=== PATIENT | male | born 1955 | race Caucasian/White ===

== ENCOUNTER 2020-07-14 13:45 | Outpatient (REF) | payer MEDICARE, SELFPAY ==
[2020-07-14 15:30] LABS: Anion Gap 13 (12-20); Blood Urea Nitrogen 59 mg/dL (9-16); Calcium 9.1 mg/dL (8.4-10.2); Carbon Dioxide 24 mmol/L (22-29); Chloride 112 mmol/L (96-108); Estimated Glomerular Filt Rate 33; Phosphorus 3.8 mg/dL (2.7-4.5); Potassium 5.3 mmol/L (3.3-5.1); Sodium 144 mmol/L (135-145)
[2020-07-14 17:45] LABS: Renal w Reflex Lab Use Only Order verified
== END 2020-07-14 13:46 | disposition home or self-care (01) ==
LOC: HO.LAB 13:45
PROVIDERS: PCP Family Medicine; Visit Provider Internal Medicine Nephrology
DX: I12.9 Hypertensive chronic kidney disease with stage 1 through stage 4 chronic kidney disease, or unspecified chronic kidney disease (principal); N18.30 Chronic kidney disease, stage 3 unspecified; E87.5 Hyperkalemia; N28.9 Disorder of kidney and ureter, unspecified
CPT/HCPCS: 36415; 80051; 82310; 82565; 84100; 84520

== ENCOUNTER 2021-01-11 13:00 | Outpatient (REF) | payer MEDICARE, SELFPAY ==
[2021-01-11 14:30] LABS: Alanine Aminotransferase 23 U/L (0-40); Albumin Level 4.4 g/dL (3.5-5.0); Alkaline Phosphatase 71 U/L (39-117); Anion Gap 15 (12-20); Aspartate Amino Transferase 18 U/L (5-37); Bilirubin Total 0.6 mg/dL (0.0-1.0); Blood Urea Nitrogen 65 mg/dL (9-16); Calcium 9.4 mg/dL (8.4-10.2); Carbon Dioxide 24 mmol/L (22-29); Chloride 110 mmol/L (96-108); Estimated Glomerular Filt Rate 30; Glucose Fasting 137 mg/dL (60-99); Potassium 5.9 mmol/L (3.3-5.1); Sodium 143 mmol/L (135-145); Total Protein 7.5 g/dL (6.5-8.0)
[2021-01-11 15:09] LABS: Anion Gap 17 (12-20); Blood Urea Nitrogen 65 mg/dL (9-16); Calcium 9.2 mg/dL (8.4-10.2); Carbon Dioxide 21 mmol/L (22-29); Chloride 111 mmol/L (96-108); Estimated Glomerular Filt Rate 31; Phosphorus 3.7 mg/dL (2.7-4.5); Potassium 5.9 mmol/L (3.3-5.1); Sodium 143 mmol/L (135-145)
[2021-01-11 15:27] LABS: Renal w Reflex Lab Use Only Order verified
[2021-01-11 15:38] LABS: Creatinine Urine 68.02 mg/dL; Microalbum/Creatinine Ratio Ur 2850.6 ug/mg cr
[2021-01-11 16:09] LABS: Glucose Random 136 mg/dL (60-115)
== END 2021-01-11 13:01 | disposition home or self-care (01) ==
LOC: HO.LAB 13:00
PROVIDERS: Absent Provider Internal Medicine Nephrology; PCP Family Medicine; Visit Provider Family Medicine
DX: Z00.00 Encounter for general adult medical examination without abnormal findings (principal); E11.22 Type 2 diabetes mellitus with diabetic chronic kidney disease; I12.9 Hypertensive chronic kidney disease with stage 1 through stage 4 chronic kidney disease, or unspecified chronic kidney disease; N18.30 Chronic kidney disease, stage 3 unspecified; E87.5 Hyperkalemia; N28.9 Disorder of kidney and ureter, unspecified
CPT/HCPCS: 36415; 80051; 80053; 82043; 82310; 82550; 82565; 82947; 84100; 84520

== ENCOUNTER 2021-03-06 11:16 | Outpatient (REF) | payer MEDICARE, SELFPAY ==
[2021-03-06 12:58] LABS: Alanine Aminotransferase 28 U/L (0-40); Albumin Level 4.4 g/dL (3.5-5.0); Alkaline Phosphatase 58 U/L (39-117); Anion Gap 17 (12-20); Aspartate Amino Transferase 19 U/L (5-37); Bilirubin Total 0.6 mg/dL (0.0-1.0); Blood Urea Nitrogen 90 mg/dL (9-16); Calcium 9.5 mg/dL (8.4-10.2); Carbon Dioxide 26 mmol/L (22-29); Chloride 105 mmol/L (96-108); Estimated Glomerular Filt Rate 27; Glucose Random 182 mg/dL (60-115); Potassium 4.4 mmol/L (3.3-5.1); Sodium 144 mmol/L (135-145); Total Protein 7.5 g/dL (6.5-8.0)
== END 2021-03-06 11:17 | disposition home or self-care (01) ==
LOC: HO.WFDLDS 11:16
PROVIDERS: Visit Provider Family Medicine
DX: E11.9 Type 2 diabetes mellitus without complications (principal); E87.5 Hyperkalemia; N18.9 Chronic kidney disease, unspecified
CPT/HCPCS: 36415; 80053

== ENCOUNTER 2021-04-28 21:31 | Inpatient (IN) | payer MEDICARE, SELFPAY ==
--- NOTE | ~2021-04-28 | XR_ITS ---
EXAMINATION: XR CHEST CLINICAL INFORMATION: Endotracheal tube placement COMPARISON: Chest x-ray on 05/26/2021 TECHNIQUE: Frontal view of the chest was obtained. FINDINGS: The endotracheal tube is 6.2 cm above the sowmya. Enteric tube and left internal jugular vein catheter are unchanged. No significant change in the bilateral diffuse hazy opacities. No pleural effusions. No pneumothorax. XR/XR chest 1V IMPRESSION: Endotracheal tube, enteric tube, and left internal jugular vein catheter are unchanged.
--- NOTE | ~2021-04-28 | XR_ITS ---
EXAMINATION: XR CHEST CLINICAL INFORMATION: Hypoxia. Intubated. COMPARISON: 05/22/2021 TECHNIQUE: Frontal view of the chest was obtained. FINDINGS: Endotracheal tube terminates 6.0 cm above the sowmya. Enteric tube terminates within stomach. Low lung volumes. Diffuse linear, reticular and hazy airspace opacities are without appreciable change from prior. Stable cardiac mediastinal silhouette. XR/XR chest 1V IMPRESSION: Stable diffuse bilateral interstitial and airspace disease.
--- NOTE | ~2021-04-28 | CT_ITS ---
EXAMINATION: CT CHEST WITHOUT CONTRAST CLINICAL INFORMATION: Hypoxia. COMPARISON: None TECHNIQUE: Multidetector volumetric CT imaging of the chest was done. Axial MIP volume rendering provided. Sagittal and coronal reformatted images were obtained. This CT examination was performed using dose optimization techniques as appropriate, variously including the following: *Automated exposure control *Adjustment of mA and/or kV according to patient size (this includes techniques or standardized protocols for targeted exams where dose is matched to indication/reason for exam; i.e. extremities or head) *Use of iterative reconstruction technique DLP: 435 mGy-cm FINDINGS: LUNGS: Extensive multifocal airspace opacities. Evaluation of pulmonary nodules is suboptimal due to overlying airspace disease. Azygos fissure. The central airways are patent. MEDIASTINUM: Asymmetric elevation of the right hemidiaphragm. Cardiomegaly without pericardial effusion. Mediastinal and hilar lymphadenopathy for instance a prevascular lymph node measuring up to 1.3 cm (3:25). Extensive coronary calcifications. Atherosclerotic disease of the thoracic aorta which is of normal diameter. Normal appearance of the thyroid gland. PLEURA: No pleural effusion or pneumothorax. AXILLA: No lymphadenopathy. UPPER ABDOMEN: There is a 0.7 cm calculus in the upper pole of the right kidney. OSSEOUS STRUCTURES: No acute or suspicious osseous abnormalities. Thoracic spondylosis. CT/CT chest wo con IMPRESSION: Extensive multifocal airspace opacities most consistent with a multifocal pneumonia in the appropriate clinical setting. Mediastinal and hilar lymphadenopathy is likely reactive. Extensive coronary calcifications. 0.7 cm calculus in the upper pole of the right kidney.
--- NOTE | ~2021-04-28 | XR_ITS ---
EXAMINATION: XR CHEST CLINICAL INFORMATION: Status post and the tracheal tube exchange COMPARISON: May 15, 2021 TECHNIQUE: AP portable view of the chest was obtained. FINDINGS: Endotracheal tube tip is seen approximately 5 cm above the sowmya. Enteric tube seen traversing to the stomach. There appears be a temporary pacemaker placed from a right internal jugular vein approach. There is again noted to be central stable appearance of diffuse interstitial and airspace disease bilaterally with the appearance of pulmonary edema of cardiogenic or noncardiogenic etiology or diffuse interstitial lung disease such as related to viral pneumonitis. Heart normal size. No pneumothorax or significant pleural effusion identified. Azygos lobe present. XR/XR chest 1V IMPRESSION: No significant change in diffuse bilateral interstitial and airspace disease. Endotracheal tube tip approximately 5 cm above the sowmya.
--- NOTE | ~2021-04-28 | XR_ITS ---
EXAMINATION: XR CHEST CLINICAL INFORMATION: Intubated, hypoxic COMPARISON: 05/17/2021 TECHNIQUE: Frontal view of the chest was obtained. FINDINGS: Endotracheal tube with tip 5 to 6 cm above the sowmya. Right internal jugular approach transvenous pacer has been removed. Enteric tube descends the esophagus with tip in the body of the stomach. Lung volumes remain low. Similar appearance of diffuse interstitial and airspace opacities. No pleural effusion or pneumothorax. XR/XR chest 1V IMPRESSION: No significant change in low lung volumes with diffuse interstitial and airspace opacities. Right internal jugular approach transvenous pacer has been removed. Additional tubes and lines remain, in satisfactory position.
--- NOTE | ~2021-04-28 | XR_ITS ---
EXAMINATION: XR ABDOMEN KUB CLINICAL INDICATION: Distention. COMPARISON: 02/15/2016 TECHNIQUE: AP view of the abdomen. FINDINGS: Normal bowel gas pattern. No dilated loops of bowel. Gas and stool throughout the colon. No abnormal dilatation. Degenerative changes noted in the spine. Catheter overlies the pelvis. XR/XR abdomen 1V IMPRESSION: Normal bowel gas pattern. No abnormal bowel dilatation.
--- NOTE | ~2021-04-28 | US_ITS ---
EXAMINATION: US VENOUS WITH DOPPLER UPPER EXTREMITY, LEFT CLINICAL INFORMATION: Swollen left upper extremity with left Ig central line placement. COMPARISON: None TECHNIQUE: Ultrasound of the upper extremity is performed using compression sonography and color and pulse Doppler flow with assessment of augmentation of flow. There is also imaging and Doppler assessment of the jugular and subclavian veins. Spectral analysis with color-flow imaging is performed. FINDINGS: Respiratory variation, normal compression, and augmented flow are noted throughout the upper extremity including the axillary, brachial, cephalic and basilic veins. There is normal flow in subclavian vein. The left internal jugular vein was not visualized. There is no visible deep or superficial thrombophlebitis. If the patient's symptoms progress, a followup ultrasound in 5 -7 days might be of value to exclude proximal propagation from a nonvisualized distal arm vein. US/US venous duplex UE LT IMPRESSION: No DVT demonstrated in left upper extremity. The left internal jugular vein was not visualized. Results were discussed with Dr. Flores in the ICU at 10:00 AM.
--- NOTE | ~2021-04-28 | XR_ITS ---
EXAMINATION: XR CHEST CLINICAL INFORMATION: Diffuse bilateral interstitial airspace disease. COMPARISON: Chest 05/24/2021 TECHNIQUE: Frontal view of the chest was obtained. FINDINGS: The lungs are hypoexpanded with diffuse bilateral interstitial prominence, stable. No consolidation or pleural effusion seen on this exam however limited. There is a new left central venous catheter with its tip in the mid SVC. The right jugular sheath has been removed. Tip of the endotracheal tube is 7.5 cm above the sowmya. The enteric tube tip is below diaphragm in the stomach. It may have slightly retracted since the last study. However the patient is slightly rotated to the right. Heart size and the great vessels are normal caliber. No gross bony abnormality seen. XR/XR chest 1V IMPRESSION: Stable diffuse bilateral interstitial and airspace disease. Numerous left central venous catheter tip in mid SVC. The right jugular venous sheath has been removed. No change in endotracheal tube. Advanced enteric tube at least by 5 to 10 cm.
--- NOTE | ~2021-04-28 | XR_ITS ---
EXAMINATION: XR CHEST CLINICAL INFORMATION: Follow-up Covid infection COMPARISON: Previous chest x-ray 05/31/2021 TECHNIQUE: Frontal view of the chest was obtained. FINDINGS: The lung volumes are low. The heart does not appear enlarged. There is a new tracheostomy tube with tip 4.4 cm above the sowmya. There is a left jugular line with tip projecting over the SVC. There are bilateral infiltrates. This may be slightly improved in the right upper lobe compared to May 2021 exam. There is question of new denser airspace disease or atelectasis of the left upper lobe versus changes related to patient positioning and tracheostomy apparatus. There is no pleural effusion or pneumothorax. There are degenerative changes of the spine. XR/XR chest 1V IMPRESSION: Satisfactory position of tracheostomy tube and left jugular line. Low lung volumes and bilateral infiltrates, question slightly improved from May 2021 exam. Question new left upper lobe atelectasis or consolidation versus changes due to positioning and tracheostomy tube apparatus.
--- NOTE | ~2021-04-28 | FL_ITS ---
EXAMINATION: XR FLUOROSCOPY CLINICAL INFORMATION: Temporary pacemaker placement COMPARISON: None TECHNIQUE: Fluoroscopic imaging guidance was utilized for a procedure. 2 fluoroscopic matrix images are available for review. FINDINGS: 2 fluoroscopic matrix images from the procedure are available for review and demonstrate a pacemaker lead projecting over the expected region of the heart. FLUOROSCOPY TIME: 1.7 minutes DOSE AREA PRODUCT: 7.01 Gy-cm2 (rodrigues-centimeter squared) FL/FL fluoroscopy <1hr IMPRESSION: Fluoroscopic imaging guidance for procedure. Please for to the procedure report for details.
--- NOTE | ~2021-04-28 | XR_ITS ---
EXAMINATION: CR CHEST CLINICAL INFORMATION: Intubated with temporary pacer. COMPARISON: CT scan of the chest dated 04/29/2021. TECHNIQUE: AP upright portable view of the chest was obtained. FINDINGS: EKG leads overlie the chest. Right jugular venous pacer line is seen in place with tip in the right ventricle. Enteric tube courses into the abdomen with tip projected in the left upper quadrant, presumably within the gastric fundus. Endotracheal tube tip is 6 cm above the sowmya. The cardiomediastinal silhouette is within normal limits in size. Low lung volumes are seen with extensive bilateral fluffy airspace opacities, unchanged from the CT scan. No significant effusion or pneumothorax is seen. Convex right thoracolumbar scoliosis and mild vertebral spondylosis is noted. XR/XR chest 1V IMPRESSION: 1. Pacer lead and tubes in place as discussed above. 2. No significant change in diffuse bilateral airspace opacities and hypoexpansion of the lungs.
--- NOTE | ~2021-04-28 | XR_ITS ---
EXAMINATION: XR CHEST CLINICAL INFORMATION: Febrile COMPARISON: 05/13/2021 TECHNIQUE: Frontal view of the chest was obtained. FINDINGS: Endotracheal tube terminates 4.0 cm above the sowmya. Enteric tube terminates within the gastric body. Low lung volumes. Diffuse bilateral granular hazy airspace opacity throughout both lungs, with slightly improved aeration on the right. No large pleural effusion. No pneumothorax. XR/XR chest 1V IMPRESSION: Slightly improved aeration within right lung.
[2021-04-28 21:37] VITALS: BP 126/75; BP 144/86; PULSE 85; RESP 18; O2SAT 95; BMI 30.5
--- NOTE | 2021-04-28 21:49 | ECG_ITS ---
Test Reason : SOB Blood Pressure : / mmHG Vent. Rate : 082 BPM Atrial Rate : 000 BPM P-R Int : 000 ms QRS Dur : 086 ms QT Int : 364 ms P-R-T Axes : 000 -21 029 degrees QTc Int : 425 ms Normal sinus rhythm with 1st degree A-V block Left axis deviation Nonspecific ST abnormality Abnormal ECG When compared with ECG of 28-FEB-2018 22:44, Heart rate has decreased Nonspecific ST abnormality is new Referred By: Nikki Young Electronically Signed By:SHEILA MATOS MD
--- NOTE | 2021-04-28 21:53 | ED_ITS ---
HPI - General Adult General Chief complaint: Dyspnea Stated complaint: covid + w/ symptoms (low O2 sat) Time Seen by Provider: 04/28/21 21:32 Source: patient and EMS Mode of arrival: EMS Limitations: no limitations History of Present Illness HPI narrative: Patient comes to emergency room complaining of low oxygen sa turation. Patient states that he was diagnosed with COVID-19 9 days ago. Patient states that he had flu-like symptoms which triggered him to get tested. Patient states that he has been feeling fairly well, today he started feeling short of breath. His checked his oxygen saturation, was in the low 60s, EMS was called, running to be hypoxic in the low 70s. Patient was placed in a non-rebreather at 15 L, oxygen saturation improved to 92%. Patient denies chest pain, patient speaking in full sentences, states that overall he feels well than the shortness of breath. Related Data Home Medications Medication Instructions Recorded Confirmed isosorbide mononitrate 60 mg 60 mg PO DAILY 03/06/21 04/28/21 tablet,extended release 24 hr sodium polystyrene sulfonate 30 g PO 2XW 03/06/21 04/28/21 furosemide 40 mg tablet 40 mg PO Q2D 04/28/21 04/28/21 furosemide 40 mg tablet 80 mg PO Q2D 04/28/21 04/28/21 insulin glargine 100 unit/mL (3 18 unit SUBCUT QPM 04/28/21 04/28/21 mL) subcutaneous pen (Basaglar KwikPen U-100 Insulin) Previous Rx's Medication Instructions Recorded aspirin 81 mg chewable tablet 1 tab PO DAILY #30 cap 06/23/20 blood sugar diagnostic (OneTouch #100 ea 06/25/20 Ultra Blue Test Strip) atorvastatin 20 mg tablet 20 mg PO DAILY #30 cap 06/28/20 metformin 500 mg tablet 250 mg PO DAILY 90 Days #45 tab 10/21/20 atenolol 25 mg tablet 25 mg PO DAILY 90 Days #90 tab 10/25/20 glipizide 5 mg tablet 2.5 mg PO DAILY #45 tab 11/16/20 hydralazine 10 mg tablet 40 mg PO TID #360 cap 02/08/21 Allergies Allergy/AdvReac Type Severity Reaction Status Date / Time No Known Allergies Allergy Verified 03/06/21 10:38 [No Known Allergies*] Review of Systems Review of Systems: Constitutional : No Weight loss, No Fever, No Chills, No Night Sweats, No Fatigue, No Malaise ENT/Mouth : No Hearing loss, No Ear Pain, No Nasal Congestion, No Sinus Pain, No Hoarseness, No sore throat, No Rhinorrhea, No Swallowing Difficulty Eyes: No Eye Pain, No Swelling, No Redness, No Foreign Body, No Discharge, No Vision Changes Cardiovascular : No Chest Pain, no palpitations, complaining of shortness of breath Respiratory : Complaining of dry Cough, No Sputum, No Wheezing, No Smoke Exposure, complaining of dyspnea Gastrointestinal : No Nausea, No Vomiting, No Diarrhea, No Constipation, No abdominal Pain, No Hematochezia, No Melena Genitourinary : no irregular bleeding, No Dysuria, No Urinary Frequency, No Hematuria, No Urinary Incontinence, No Urgency, No Flank Pain, No Urinary Flow Changes, No Hesitancy Musculoskeletal : No joint pain, No Myalgias, No Joint Swelling Skin : No Skin Lesions, No rash Neuro : No Weakness, No Numbness, No Paresthesias, No Loss of Consciousness, No Dizziness, No Headache Psych : No Anxiety/Panic, No Depression, No SI/HI/AH/VH, No Social Issues, Heme/Lymph: No Bruising, No Bleeding,No Lymphadenopathy Endocrine : No Polyuria, No Polydipsia, No Temperature Intolerance FORMERLY [facility], [facility]–1983 Social History Social History Housing: House Patient Tobacco Use Status: Never used Tobacco e-Cigarette/Vaping Use: Never Used Advance Directives: No Advance Directives Information Provided: No service: Yes Current occupational status: employed Current occupational exposures/hazards: No Physical Exam Vital Signs: Vital Signs: Last Vital Signs Temp 99.4 F 04/29/21 01:00 Pulse 72 04/29/21 01:00 Resp 18 04/29/21 01:00 BP 108/69 04/28/21 23:31 Pulse Ox 96 04/29/21 01:00 Oxygen Flow Rate 15 04/28/21 21:37 Body Mass Index 30.5 Course Course Course Narrative: Patient has extensive multifocal airspace opacities most consistent with a focal pneumonia/COVID-19. Patient was given dexamethasone. I discussed the patient with the hospitalist, patient will be empirically treated with antibiotic, IV azithromycin and ceftriaxone. Due to patient's history of COVID, patient will not be receiving 30 mL per kg. Patient's blood pressure 126/75, lactic acid 1.5. Patient is on high-flow saturating at 99%. Initially when patient arrived, we attempted weaning patient off the non-rebreather, patient's oxygen saturation dropped to the low 80s within a few seconds. Patient's creatinine and BUN elevated, patient does have history of chronic kidney disease. At this time, we will not do a CTA with contrast due to the renal insufficiency. Medical Decision Making Lab Data Result diagrams: 04/28/21 22:17 04/28/21 22:17 Labs: Lab Results 04/28/21 04/28/21 04/28/21 Range/Units 22:17 22:17 22:17 WBC 8.0 (4.8-10.8) X10*3/uL RBC 5.04 (4.60-5.80) X10*6/uL Hgb 14.6 (14.0-18.0) g/dl Hct 44.6 (42.0-52.0) % MCV 88.5 (80.0-98.0) fL MCH 29.0 (27.0-33.0) pg MCHC 32.7 (31.0-36.0) g/dl RDW 13.2 (11.0-16.0) % Plt Count 186 (160-400) X10*3/uL MPV 11.1 (9.4-12.4) fL Immature Gran % (Auto) 0.9 H (0.0-0.4) % Neut % (Auto) 85.1 H (45-73) % Lymph % (Auto) 7.4 L (20-40) % Burnett % (Auto) 6.5 (2-11) % Eos % (Auto) 0.0 (0-4) % Baso % (Auto) 0.1 (0-2) % Lymph # (Auto) 0.6 L (1.2-4.9) X10*3/uL Burnett # (Auto) 0.5 (0.1-1.2) X10*3/uL Eos # (Auto) 0.0 (0.0-0.4) X10*3/uL Baso # (Auto) 0.0 (0.0-0.2) X10*3/uL Abs Immat Gran (auto) 0.07 H (0.00-0.03) X10*3/uL Absolute Neuts (auto) 6.8 (2.0-8.3) x10*3/uL Absolute Nucleated RBC 0.000 (0.0-0.012) X10*3/uL Nucleated RBC % (auto) 0.0 (0.0-0.2) /100WBC D-Dimer High Sensitivty NG/ML Sodium 134 L (135-145) mmol/L Potassium 5.2 H (3.3-5.1) mmol/L Chloride 105 (96-108) mmol/L Carbon Dioxide 18 L (22-29) mmol/L Anion Gap 16 (12-20) BUN 104 H* (9-16) mg/dL Creatinine 3.29 H (0.5-1.4) mg/dL Estim Creat Clear Calc 27.2 Estimated GFR 19 Random Glucose 180 H (60-115) mg/dL Lactic Acid (0.5-2.0) mmol/L Calcium 7.7 L D (8.4-10.2) mg/dL Total Bilirubin 0.7 (0.0-1.0) mg/dL Direct Bilirubin 0.4 (0.0-0.5) mg/dL AST 61 H (5-37) U/L ALT 35 (0-40) U/L Alkaline Phosphatase 55 (39-117) U/L Troponin I High Sens 78.6 H* (<3.5-35.0) ng/L B-Natriuretic Peptide 1098 H (<100) pg/mL Total Protein 5.9 L D (6.5-8.0) g/dL Albumin 3.1 L D (3.5-5.0) g/dL COVID-19 (MARISA) (Negative) COVID-19 Clin Com 04/28/21 04/28/21 04/28/21 Range/Units 22:17 22:17 22:17 WBC (4.8-10.8) X10*3/uL RBC (4.60-5.80) X10*6/uL Hgb (14.0-18.0) g/dl Hct (42.0-52.0) % MCV (80.0-98.0) fL MCH (27.0-33.0) pg MCHC (31.0-36.0) g/dl RDW (11.0-16.0) % Plt Count (160-400) X10*3/uL MPV (9.4-12.4) fL Immature Gran % (Auto) (0.0-0.4) % Neut % (Auto) (45-73) % Lymph % (Auto) (20-40) % Burnett % (Auto) (2-11) % Eos % (Auto) (0-4) % Baso % (Auto) (0-2) % Lymph # (Auto) (1.2-4.9) X10*3/uL Burnett # (Auto) (0.1-1.2) X10*3/uL Eos # (Auto) (0.0-0.4) X10*3/uL Baso # (Auto) (0.0-0.2) X10*3/uL Abs Immat Gran (auto) (0.00-0.03) X10*3/uL Absolute Neuts (auto) (2.0-8.3) x10*3/uL Absolute Nucleated RBC (0.0-0.012) X10*3/uL Nucleated RBC % (auto) (0.0-0.2) /100WBC D-Dimer High Sensitivty 964 NG/ML Sodium (135-145) mmol/L Potassium (3.3-5.1) mmol/L Chloride (96-108) mmol/L Carbon Dioxide (22-29) mmol/L Anion Gap (12-20) BUN (9-16) mg/dL Creatinine (0.5-1.4) mg/dL Estim Creat Clear Calc Estimated GFR Random Glucose (60-115) mg/dL Lactic Acid 1.5 (0.5-2.0) mmol/L Calcium (8.4-10.2) mg/dL Total Bilirubin (0.0-1.0) mg/dL Direct Bilirubin (0.0-0.5) mg/dL AST (5-37) U/L ALT (0-40) U/L Alkaline Phosphatase (39-117) U/L Troponin I High Sens (<3.5-35.0) ng/L B-Natriuretic Peptide (<100) pg/mL Total Protein (6.5-8.0) g/dL Albumin (3.5-5.0) g/dL COVID-19 (MARISA) Positive A (Negative) COVID-19 Clin Com See Note Imaging Data CT scan - chest: Radiologist's impression: FINDINGS: LUNGS: Extensive multifocal airspace opacities. Evaluation of pulmonary nodules is suboptimal due to overlying airspace disease. Azygos fissure. The central airways are patent.? MEDIASTINUM: Asymmetric elevation of the right hemidiaphragm. Cardiomegaly without pericardial effusion. Mediastinal and hilar lymphadenopathy for instance a prevascular lymph node measuring up to 1.3 cm (3:25). Extensive coronary calcifications. Atherosclerotic disease of the thoracic aorta which is of normal diameter. Normal appearance of the thyroid gland.? PLEURA: No pleural effusion or pneumothorax.? AXILLA: No lymphadenopathy.? UPPER ABDOMEN: There is a 0.7 cm calculus in the upper pole of the right kidney.? OSSEOUS STRUCTURES: No acute or suspicious osseous abnormalities. Thoracic spondylosis.? CT/CT chest wo con IMPRESSION: Extensive multifocal airspace opacities most consistent with a multifocal pneumonia in the appropriate clinical setting. Mediastinal and hilar lymphadenopathy is likely reactive. ? Extensive coronary calcifications. ? 0.7 cm calculus in the upper pole of the right kidney.? ECG Data Attestation: I personally reviewed and interpreted this ECG as follows: (Heart rate 82, no ST segment depression elevation, no T-wave inversion, QTC 435, tolerated junctional rhythm) Critical Care Time Critical Care Time Critical Care Time: Yes Total Critical Care Time: 50 Attestation: 50 minutes were spent in direct patient care and stabilization. Discharge Plan Discharge Clinical Impression: Acute hypoxemic respiratory failure due to COVID-19 Patient Disposition: Admitted As Inpatient Prescriptions: No Action aspirin 81 mg tablet,chewable 1 tab PO DAILY Qty: 30 RF: 11 (DME) Telogisuch Ultra Blue Test Strip Strip See Rx Instructions .ROUTE .MEDSUPPLY Qty: 100 RF: 3 atorvastatin 20 mg tablet 20 mg PO DAILY Qty: 30 RF: 11 metformin 500 mg tablet 250 mg PO DAILY 90 Days Qty: 45 RF: 3 atenolol 25 mg tablet 25 mg PO DAILY 90 Days Qty: 90 RF: 3 glipizide 5 mg tablet 2.5 mg PO DAILY Qty: 45 RF: 0 hydralazine 10 mg tablet 40 mg PO TID Qty: 360 RF: 3 furosemide 40 mg tablet 80 mg PO Q2D RF: 0 furosemide 40 mg tablet 40 mg PO Q2D RF: 0 Basaglar HariPen U-100 Insulin 100 unit/mL (3 mL) insulin pen 18 unit subcut QPM RF: 0
[2021-04-28] MEDS: dexAMETHasone sod phosphate 4 MG/ML VIAL 6 MG IVPUSH (22:04)
[2021-04-28] MEDS: 0.9 % Sodium Chloride 1,000 ML 999 ML IVCONT (22:04)
[2021-04-28 22:08] VITALS: PULSE 85; TEMP 39.2
--- NOTE | 2021-04-28 22:14 | PHA.MEDREC ---
Pharmacy Consult ? Medication Reconciliation Pharmacy has completed the medication reconciliation. Per Nakia (patients ), the SPS is not taken on fixed days
[2021-04-28 22:15] VITALS: PULSE 85; O2SAT 94
[2021-04-28 22:23] LABS: MANUAL DIFF FLAG NO
[2021-04-28 22:26] LABS: Basophils Percent Auto 0.1 % (0-2); Hematocrit 44.6 % (42.0-52.0); Hemoglobin 14.6 g/dl (14.0-18.0); Imm Gran Abs Auto 0.07 X10*3/uL (0.00-0.03); Imm Gran Pct Auto 0.9 % (0.0-0.4); Lymphocytes Absolute Auto 0.6 X10*3/uL (1.2-4.9); Lymphocytes Percent Auto 7.4 % (20-40); Mean Corpuscular HGB Conc 32.7 g/dl (31.0-36.0); Mean Corpuscular Volume 88.5 fL (80.0-98.0); Mean Platelet Volume 11.1 fL (9.4-12.4); Monocytes Absolute Auto 0.5 X10*3/uL (0.1-1.2); Monocytes Percent Auto 6.5 % (2-11); Neutrophils Absolute Auto 6.8 x10*3/uL (2.0-8.3); Neutrophils Percent Auto 85.1 % (45-73); Platelet Count 186 X10*3/uL (160-400); Red Blood Count 5.04 X10*6/uL (4.60-5.80); Red Cell Distribution Width 13.2 % (11.0-16.0)
[2021-04-28 22:33] LABS: COVID-19 Test Positive (Negative); D Dimer High Sensitivity 964 NG/ML
[2021-04-28 22:34] LABS: Lactic Acid 1.5 mmol/L (0.5-2.0)
[2021-04-28 22:49] LABS: B Type Natriuretic Peptide 1098 pg/mL (<100); Troponin-I High Sensitivity 78.6 ng/L (<3.5-35.0)
[2021-04-28 22:50] LABS: Alanine Aminotransferase 35 U/L (0-40); Albumin Level 3.1 g/dL (3.5-5.0); Alkaline Phosphatase 55 U/L (39-117); Anion Gap 16 (12-20); Aspartate Amino Transferase 61 U/L (5-37); Bilirubin Direct 0.4 mg/dL (0.0-0.5); Bilirubin Total 0.7 mg/dL (0.0-1.0); Blood Urea Nitrogen 104 mg/dL (9-16); Calcium 7.7 mg/dL (8.4-10.2); Carbon Dioxide 18 mmol/L (22-29); Chloride 105 mmol/L (96-108); Creatinine Clr Calc Pharmacy 27.2; Estimated Glomerular Filt Rate 19; Glucose Random 180 mg/dL (60-115); Potassium 5.2 mmol/L (3.3-5.1); Sodium 134 mmol/L (135-145); Total Protein 5.9 g/dL (6.5-8.0)
--- NOTE | 2021-04-28 22:52 | PM.IMHP ---
History of Present Illness Date of Service: 04/28/21 Chief Complaint: SOB 66-year-old male with past medical history of hypertension, CHF, diabetes, who presents to the hospital with complaints of shortness of breath. Patient reports that he was diagnosed with COVID-19 about 9 days ago, he regularly checks his oxygen home, today his checked and was 60. On arrival of EMS patient's O2 was 70% on room air. Patient was brought into the hospital. He reports no chest pain, no abdominal pain nausea or vomiting, no diarrhea constipation no urinary symptoms and no lower extremity edema. No weakness numbness or headache. On arrival to the ED patient found to have a temp of 102.6?, heart rate of 85, respiratory rate of 18, blood pressure 108/69, satting 97% on high-flow nasal cannula Labs are significant for WBC count of 8.0, sodium of 134, potassium 5.2, creatinine of 3.29 with a baseline around 2.4, troponin of 78, BNP of 1098, COVID-19 positive, Chest CT showed extensive multifocal airspace opacities most consistent with multifocal pneumonia in the appropriate clinical setting. Patient placed on high-flow and will be admitted for further management Review of Systems Review of Systems: Yes all other systems are reviewed and are negative [facility] Medical History (Updated 04/29/21 @ 06:45 by Kina Arredondo MD) CHF (congestive heart failure) Chronic renal failure Diabetes Hypertension Type 2 diabetes mellitus Pertinent family history: No history of cardiovascular disease in immediate family Surgical History (Updated 04/29/21 @ 06:42 by Kina Arredondo MD) No pertinent past surgical history Social History Housing: House Alcohol intake: unknown Patient Tobacco Use Status: Never used Tobacco e-Cigarette/Vaping Use: Never Used Use of substances other than those prescribed or required for medical reasons: Unknown Advance Directives: No Advance Directives Information Provided: No service: Yes Current occupational status: employed Current occupational exposures/hazards: No Meds Allergies Allergy/AdvReac Type Severity Reaction Status Date / Time No Known Allergies Allergy Verified 03/06/21 10:38 [No Known Allergies*] Active Medications: Current Medications Pharmacy Consult (Consult Rx Perform Med Rec) 1 each MISCELLANE ONCE PRN PRN Reason: Consult order Home Medications Medication Instructions Recorded Confirmed Last Taken Type isosorbide mononitrate 60 mg 60 mg PO DAILY 03/06/21 04/28/21 04/27/21 History tablet,extended release 24 hr sodium polystyrene sulfonate 30 g PO 2XW 03/06/21 04/28/21 04/27/21 History furosemide 40 mg tablet 40 mg PO Q2D 04/28/21 04/28/21 04/27/21 History furosemide 40 mg tablet 80 mg PO Q2D 04/28/21 04/28/21 04/26/21 History insulin glargine 100 unit/mL (3 18 unit SUBCUT QPM 04/28/21 04/28/21 04/27/21 History mL) subcutaneous pen (Basaglar KwikPen U-100 Insulin) Physical Exam Vital Signs and Narrative: Vital Signs: Last Vital Signs Temp 102.6 F H 04/28/21 22:08 Pulse 85 04/28/21 22:08 Resp 18 04/28/21 21:37 BP 126/75 04/28/21 21:37 Pulse Ox 95 04/28/21 21:37 Oxygen Flow Rate 15 04/28/21 21:37 Body Mass Index 30.5 Const: Other: Appears comfortable, in no apparent respiratory distress General: cooperative and no acute distress Orientation/consciousness: patient oriented x3 Eyes: General: appearance normal, both eyes and all related structures Pupils: Equal, round and reactive pupils present Resp: Other: Bilateral rhonchi on high-flow as well as nasal cannula Effort & Inspection: normal respiratory effort Cardio: Rate: regular rate Rhythm: regular rhythm GI: Palpation (GI): Soft to palpation Auscultation: normal bowel sounds Skin: General skin exam: no rashes or lesions noted Neuro: General: patient oriented x3 Cranial nerves: Yes Equal, round and reactive pupils present Cognition (Neuro): normal cognition Extrem: Other: 2+ edema bilaterally General: Yes normal to inspection Results Labs CBC and Chem 7: 04/28/21 22:17 04/28/21 22:17 Labs: Laboratory Results - last 24 hr 04/28/21 04/28/21 04/28/21 22:17 22:17 22:17 MCV 88.5 MCH 29.0 MCHC 32.7 RDW 13.2 Plt Count 186 MPV 11.1 Immature Gran % (Auto) 0.9 H Neut % (Auto) 85.1 H Lymph % (Auto) 7.4 L Vance % (Auto) 6.5 Eos % (Auto) 0.0 Baso % (Auto) 0.1 Lymph # (Auto) 0.6 L Vance # (Auto) 0.5 Eos # (Auto) 0.0 Baso # (Auto) 0.0 Abs Immat Gran (auto) 0.07 H Absolute Neuts (auto) 6.8 Absolute Nucleated RBC 0.000 Nucleated RBC % (auto) 0.0 D-Dimer High Sensitivty Anion Gap 16 Estim Creat Clear Calc 27.2 Estimated GFR 19 Random Glucose 180 H Lactic Acid Calcium 7.7 L D Total Bilirubin 0.7 Direct Bilirubin 0.4 AST 61 H ALT 35 Alkaline Phosphatase 55 Troponin I High Sens 78.6 H* B-Natriuretic Peptide 1098 H Total Protein 5.9 L D Albumin 3.1 L D COVID-19 (MARISA) COVID-19 Clin Com 04/28/21 04/28/21 04/28/21 22:17 22:17 22:17 MCV MCH MCHC RDW Plt Count MPV Immature Gran % (Auto) Neut % (Auto) Lymph % (Auto) Vance % (Auto) Eos % (Auto) Baso % (Auto) Lymph # (Auto) Vance # (Auto) Eos # (Auto) Baso # (Auto) Abs Immat Gran (auto) Absolute Neuts (auto) Absolute Nucleated RBC Nucleated RBC % (auto) D-Dimer High Sensitivty 964 Anion Gap Estim Creat Clear Calc Estimated GFR Random Glucose Lactic Acid 1.5 Calcium Total Bilirubin Direct Bilirubin AST ALT Alkaline Phosphatase Troponin I High Sens B-Natriuretic Peptide Total Protein Albumin COVID-19 (MARISA) Positive A COVID-19 Clin Com See Note Assessment and Plan (1) Acute hypoxemic respiratory failure due to COVID-19: Status: Acute (2) CHF exacerbation: Status: Acute (3) Acute kidney injury superimposed on CKD: Status: Acute (4) Elevated troponin: Status: Acute (5) Elevated troponin: Status: Acute 66-year-old male with past medical history of diabetes, CHF, hypertension, who presents to the hospital with complaints of shortness of breath and hypoxia found to have O2 level of 60%. Patient reports that he was diagnosed with COVID-19 about 9 days ago. # acute hypoxic respiratory failure - Secondary to COVID-19 pneumonia - will start patient on dexamethasone - continue high-flow oxygen - titrate oxygen down as tolerated # CHF exacerbation - has elevated BNP, as well as lower extremity edema - history of CHF on Lasix at home - will start him on IV Lasix 40 b.i.d., echocardiogram, consult Cardiology, strict I&O, low-sodium diet, daily weight - continue atenolol as well as statin # JÚNIOR on CKD - most likely prerenal secondary to CHF - will start him on IV Lasix, follow BMP # elevated troponin - most likely type 2 in the setting of hypoxia - EKG shows no EKG changes suggestive of ACS - will admit to telemetry - trend troponin - echocardiogram # diabetes - hold oral antihyperglycemics in the setting of JÚNIOR - low-dose sliding scale insulin - diabetic diet - continue home Lantus # CAD? - continue aspirin, atenolol DVT prophylaxis: Heparin subQ Quality Stroke Does the patient have a stroke diagnosis?: No VTE Prior VTE?: No VTE Risk Level:: Medical - moderate - high VTE Device Contraindication: Treatment Not Indicated VTE Drug Contraindication: N/A - Med Ordered
[2021-04-28 23:31] VITALS: BP 108/69; PULSE 74; RESP 18; O2SAT 97
[2021-04-28] MEDS: Acetaminophen 325 MG TABLET 650 MG PO (23:42)
[2021-04-29] VITALS (23 sets, daily range): BP systolic 111–143; BP diastolic 61–94; PULSE 59–78; RESP 15–30; TEMP 36.1–37.8; O2SAT 68–98
[2021-04-29] MEDS: cefTRIAXone sodium 1 GM in 0.9 % Sodium Chloride 50 ML IV (01:16)
--- NOTE | 2021-04-29 02:09 | PC.NURSE ---
unable to start second abx at this time as there are no 250ml NS bags in ED. nursing supervisor [facility] contacted.
[2021-04-29] MEDS: Azithromycin 500 MG in 0.9 % Sodium Chloride 250 ML 125 MG IV (02:43)
--- NOTE | 2021-04-29 03:40 | PC.RT ---
found patient off HFNC as well as pulse oximeter. in ER Room 3. Pt sats were 68% and HR 72. pt. placed back on current HFNC settings of 90% and 50 L. pt sats now up to 94% and hr 68.
--- NOTE | 2021-04-29 06:34 | PC.NURSE ---
Respiratory therapist walked into pt room and found pt satting in the 80's, HFNC still on pts face in proper position. RT proned pt and increased oxygen to 100% /55L, pt now satting 97%, RR: 18, HR: 74 Hospitalist notified
[2021-04-29] MEDS: Furosemide 40 MG/4 ML VIAL IVPUSH (07:06)
[2021-04-29] MEDS: 0.9 % Sodium Chloride 1,000 ML 100 ML IVCONT (07:08)
--- NOTE | 2021-04-29 07:20 | PC.NURSE ---
Patient alert and oreinted x 3. Patient denies pain and sob, afebrile. Patient is in prone position tolerating well. patients lungs coarse in bases otherwise clear. dry cough, clammy. tele: sinus rythym will larry [place] because patient is prone and given lasix and fluids. Will continue to monitor.
--- NOTE | 2021-04-29 08:06 | PM.EVENT ---
Event Note Date of Service: 04/29/21 Event Note: Evaluated this morning. This patient was just admitted with covid 19 with late symptoms, diagnosed nearly 10 days ago, also with JÚNIOR on CKD. A/P: per H and P from this morning.
--- NOTE | 2021-04-29 08:26 | P.CONNP_ITS ---
History of Present Illness Reason for Consult Consult date: 04/29/21 Chief Complaint Chief complaint: covid + w/ symptoms (low O2 sat) Review of Systems Review of Systems Constitutional : No Weight loss, No Fever, No Chills, No Night Sweats, No Fatigue, No Malaise ENT/Mouth : No Hearing loss, No Ear Pain, No Nasal Congestion, No Sinus Pain, No Hoarseness, No sore throat, No Rhinorrhea, No Swallowing Difficulty Eyes: No Eye Pain, No Swelling, No Redness, No Foreign Body, No Discharge, No Vision Changes Cardiovascular : No Chest Pain, no palpitations, complaining of shortness of breath Respiratory : Complaining of dry Cough, No Sputum, No Wheezing, No Smoke Exposure, complaining of dyspnea Gastrointestinal : No Nausea, No Vomiting, No Diarrhea, No Constipation, No abdominal Pain, No Hematochezia, No Melena Genitourinary : no irregular bleeding, No Dysuria, No Urinary Frequency, No Hematuria, No Urinary Incontinence, No Urgency, No Flank Pain, No Urinary Flow Changes, No Hesitancy Musculoskeletal : No joint pain, No Myalgias, No Joint Swelling Skin : No Skin Lesions, No rash Neuro : No Weakness, No Numbness, No Paresthesias, No Loss of Consciousness, No Dizziness, No Headache Psych : No Anxiety/Panic, No Depression, No SI/HI/AH/VH, No Social Issues, Heme/Lymph: No Bruising, No Bleeding,No Lymphadenopathy Endocrine : No Polyuria, No Polydipsia, No Temperature Intolerance Yes all other systems are reviewed and are negative [facility] Past Medical History Medical History (Updated 04/29/21 @ 06:45 by Kina Arredondo MD) CHF (congestive heart failure) Chronic renal failure Diabetes Hypertension Type 2 diabetes mellitus Family History Pertinent family history: No history of cardiovascular disease in immediate family Surgical History Surgical History (Updated 04/29/21 @ 06:42 by Kina Arredondo MD) No pertinent past surgical history Social History Social History Housing: House Alcohol intake: unknown Patient Tobacco Use Status: Never used Tobacco e-Cigarette/Vaping Use: Never Used Use of substances other than those prescribed or required for medical reasons: Unknown Advance Directives: No Advance Directives Information Provided: No service: Yes Current occupational status: employed Current occupational exposures/hazards: No Meds Allergies Allergy/AdvReac Type Severity Reaction Status Date / Time No Known Allergies Allergy Verified 03/06/21 10:38 [No Known Allergies*] Active Medications: Current Medications Furosemide (Furosemide 40 Mg/4 Ml Vial) 40 mg IVPUSH BID@0900,1800 BASILIA; Protocol Last Admin: 04/29/21 07:06 Dose: 40 mg Documented by: Sodium Chloride (Ns) 1,000 mls @ 100 mls/hr IVCONT .Q10H [place]IL[place] Last Admin: 04/29/21 07:08 Dose: 100 mls/hr Documented by: Pharmacy Consult (Consult Rx Perform Med Rec) 1 each MISCELLANE ONCE PRN PRN Reason: Consult order Home Medications Medication Instructions Recorded Confirmed Last Taken Type isosorbide mononitrate 60 mg 60 mg PO DAILY 03/06/21 04/28/21 04/27/21 History tablet,extended release 24 hr sodium polystyrene sulfonate 30 g PO 2XW 03/06/21 04/28/21 04/27/21 History furosemide 40 mg tablet 40 mg PO Q2D 04/28/21 04/28/21 04/27/21 History furosemide 40 mg tablet 80 mg PO Q2D 04/28/21 04/28/21 04/26/21 History insulin glargine 100 unit/mL (3 18 unit SUBCUT QPM 04/28/21 04/28/21 04/27/21 History mL) subcutaneous pen (Basaglar KwikPen U-100 Insulin) Physical Exam Vital Signs: Last Vital Signs Temp 97.5 F 04/29/21 07:16 Pulse 76 04/29/21 07:16 Resp 16 04/29/21 07:42 BP 111/89 04/29/21 07:16 Pulse Ox 96 04/29/21 07:16 Oxygen Flow Rate 15 04/28/21 21:37 Body Mass Index 30.5 Const General: cooperative and no acute distress Orientation/consciousness: patient oriented x3 Eyes General: appearance normal, both eyes and all related structures Pupils: Equal, round and reactive pupils present Resp Effort & Inspection: normal respiratory effort Cardio Rate: regular rate Rhythm: regular rhythm GI Palpation (GI): Soft to palpation Auscultation: normal bowel sounds Skin General skin exam: no rashes or lesions noted Neuro General: patient oriented x3 Cranial nerves: Yes Equal, round and reactive pupils present Cognition (Neuro): normal cognition Extrem General: Yes normal to inspection Results Lab Results Result Diagrams: 04/28/21 22:17 04/28/21 22:17 Lab results: Chemistry 04/28/21 22:17 Sodium 134 L Potassium 5.2 H Carbon Dioxide 18 L BUN 104 H* Creatinine 3.29 H Calcium 7.7 L D Hematology 04/28/21 22:17 WBC 8.0 Hgb 14.6 Plt Count 186 Assessment and Plan (1) Acute hypoxemic respiratory failure due to COVID-19: Status: Acute (2) CHF exacerbation: Status: Acute (3) Acute kidney injury superimposed on CKD: Status: Acute (4) Elevated troponin: Status: Acute 66-year-old male with past medical history of diabetes, CHF, hypertension, who presents to the hospital with complaints of shortness of breath and hypoxia found to have O2 level of 60%. Patient reports that he was diagnosed with COVID-19 about 9 days ago. # acute hypoxic respiratory failure - Secondary to COVID-19 pneumonia - will start patient on dexamethasone - continue high-flow oxygen - titrate oxygen down as tolerated # CHF exacerbation - has elevated BNP, as well as lower extremity edema - history of CHF on Lasix at home - will start him on IV Lasix 40 b.i.d., echocardiogram, consult Cardiology, strict I&O, low-sodium diet, daily weight - continue atenolol as well as statin # JÚNIOR on CKD - most likely prerenal secondary to CHF - will start him on IV Lasix, follow BMP # elevated troponin - most likely type 2 in the setting of hypoxia - EKG shows no EKG changes suggestive of ACS - will admit to telemetry - trend troponin - echocardiogram # diabetes - hold oral antihyperglycemics in the setting of JÚNIOR - low-dose sliding scale insulin - diabetic diet - continue home Lantus # CAD? - continue aspirin, atenolol DVT prophylaxis: Heparin subQ Procedures Date of Service Date of Service: 04/29/21
--- NOTE | 2021-04-29 08:36 | PM.CNNEP ---
History of Present Illness Reason for Consult Consult date: 04/29/21 Chief Complaint Chief complaint: covid + w/ symptoms (low O2 sat) Review of Systems Review of Systems Constitutional : No Weight loss, No Fever, No Chills, No Night Sweats, No Fatigue, No Malaise ENT/Mouth : No Hearing loss, No Ear Pain, No Nasal Congestion, No Sinus Pain, No Hoarseness, No sore throat, No Rhinorrhea, No Swallowing Difficulty Eyes: No Eye Pain, No Swelling, No Redness, No Foreign Body, No Discharge, No Vision Changes Cardiovascular : No Chest Pain, no palpitations, complaining of shortness of breath Respiratory : Complaining of dry Cough, No Sputum, No Wheezing, No Smoke Exposure, complaining of dyspnea Gastrointestinal : No Nausea, No Vomiting, No Diarrhea, No Constipation, No abdominal Pain, No Hematochezia, No Melena Genitourinary : no irregular bleeding, No Dysuria, No Urinary Frequency, No Hematuria, No Urinary Incontinence, No Urgency, No Flank Pain, No Urinary Flow Changes, No Hesitancy Musculoskeletal : No joint pain, No Myalgias, No Joint Swelling Skin : No Skin Lesions, No rash Neuro : No Weakness, No Numbness, No Paresthesias, No Loss of Consciousness, No Dizziness, No Headache Psych : No Anxiety/Panic, No Depression, No SI/HI/AH/VH, No Social Issues, Heme/Lymph: No Bruising, No Bleeding,No Lymphadenopathy Endocrine : No Polyuria, No Polydipsia, No Temperature Intolerance Yes all other systems are reviewed and are negative [facility] Past Medical History Medical History (Updated 04/29/21 @ 06:45 by Kina Arredondo MD) CHF (congestive heart failure) Chronic renal failure Diabetes Hypertension Type 2 diabetes mellitus Family History Pertinent family history: No history of cardiovascular disease in immediate family Surgical History Surgical History (Updated 04/29/21 @ 06:42 by Kina Arredondo MD) No pertinent past surgical history Social History Social History Housing: House Alcohol intake: unknown Patient Tobacco Use Status: Never used Tobacco e-Cigarette/Vaping Use: Never Used Use of substances other than those prescribed or required for medical reasons: Unknown Advance Directives: No Advance Directives Information Provided: No service: Yes Current occupational status: employed Current occupational exposures/hazards: No Meds Allergies Allergy/AdvReac Type Severity Reaction Status Date / Time No Known Allergies Allergy Verified 03/06/21 10:38 [No Known Allergies*] Active Medications: Current Medications Furosemide (Furosemide 40 Mg/4 Ml Vial) 40 mg IVPUSH BID@0900,1800 [place]IL[place]; Protocol Last Admin: 04/29/21 07:06 Dose: 40 mg Documented by: Sodium Chloride (Ns) 1,000 mls @ 100 mls/hr IVCONT .Q10H BASLIIA Last Admin: 04/29/21 07:08 Dose: 100 mls/hr Documented by: Pharmacy Consult (Consult Rx Perform Med Rec) 1 each MISCELLANE ONCE PRN PRN Reason: Consult order Home Medications Medication Instructions Recorded Confirmed Last Taken Type isosorbide mononitrate 60 mg 60 mg PO DAILY 03/06/21 04/28/21 04/27/21 History tablet,extended release 24 hr sodium polystyrene sulfonate 30 g PO 2XW 03/06/21 04/28/21 04/27/21 History furosemide 40 mg tablet 40 mg PO Q2D 04/28/21 04/28/21 04/27/21 History furosemide 40 mg tablet 80 mg PO Q2D 04/28/21 04/28/21 04/26/21 History insulin glargine 100 unit/mL (3 18 unit SUBCUT QPM 04/28/21 04/28/21 04/27/21 History mL) subcutaneous pen (Basaglar KwikPen U-100 Insulin) Physical Exam Vital Signs: Last Vital Signs Temp 97.5 F 04/29/21 07:16 Pulse 76 04/29/21 07:16 Resp 16 04/29/21 07:42 BP 111/89 04/29/21 07:16 Pulse Ox 96 04/29/21 07:16 Oxygen Flow Rate 15 04/28/21 21:37 Body Mass Index 30.5 Const General: cooperative and no acute distress Orientation/consciousness: patient oriented x3 Eyes General: appearance normal, both eyes and all related structures Pupils: Equal, round and reactive pupils present Resp Effort & Inspection: normal respiratory effort Cardio Rate: regular rate Rhythm: regular rhythm GI Palpation (GI): Soft to palpation Auscultation: normal bowel sounds Skin General skin exam: no rashes or lesions noted Neuro General: patient oriented x3 Cranial nerves: Yes Equal, round and reactive pupils present Cognition (Neuro): normal cognition Extrem General: Yes normal to inspection Results Lab Results Result Diagrams: 04/28/21 22:17 04/28/21 22:17 Lab results: Chemistry 04/28/21 22:17 Sodium 134 L Potassium 5.2 H Carbon Dioxide 18 L BUN 104 H* Creatinine 3.29 H Calcium 7.7 L D Hematology 04/28/21 22:17 WBC 8.0 Hgb 14.6 Plt Count 186 Assessment and Plan (1) Acute hypoxemic respiratory failure due to COVID-19: Status: Acute (2) CHF exacerbation: Status: Acute (3) Acute kidney injury superimposed on CKD: Status: Acute (4) Elevated troponin: Status: Acute 66-year-old male with past medical history of diabetes, CHF, hypertension, CKD 3 who presents to the hospital with complaints of shortness of breath and hypoxia found to have O2 level of 60%. Patient reports that he was diagnosed with COVID-19 about 9 days ago. he has JÚNIOR and high K # acute hypoxic respiratory failure - Secondary to COVID-19 pneumonia - will start patient on dexamethasone - continue high-flow oxygen - titrate oxygen down as tolerated # CHF exacerbation - has elevated BNP, as well as lower extremity edema - history of CHF on Lasix at home - will start him on IV Lasix 40 b.i.d., echocardiogram, consult Cardiology, strict I&O, low-sodium diet, daily weight - continue atenolol as well as statin # JÚNIOR on CKD - most likely prerenal secondary COVID and volume depletion - I would stop Lasix, gentle IVF follow BMP # elevated troponin - most likely type 2 in the setting of hypoxia - EKG shows no EKG changes suggestive of ACS - will admit to telemetry - trend troponin - echocardiogram # diabetes - hold oral antihyperglycemics in the setting of JÚNIOR - low-dose sliding scale insulin - diabetic diet - continue home Lantus # CAD? 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 upper pole of lt kidney seen. baseline creat 2 but bumped up last month to 2.4 Stage of renal disease: stage III (GFR 30-59)
[2021-04-29 08:43] LABS: Troponin-I High Sensitivity 55.5 ng/L (<3.5-35.0)
--- NOTE | 2021-04-29 09:44 | PC.NURSE ---
Patient alert and oriented x 3. Patient incontinent of stool and urine. Inserted Camacho cath w/ temperature probe in patient tolerated procedure already put out 750cc. oxygen sats 93%. Will continue to monitor.
[2021-04-29 10:22] LABS: Osmolality Urine 380 mosm/kg (373-1093)
[2021-04-29] MEDS: 0.9 % Sodium Chloride Flush 3 ML SYRINGE IVFLUSH ×2 (10:38→21:54)
--- NOTE | 2021-04-29 10:39 | PM.CNCAR ---
History of Present Illness History of Present Illness Date of Service: 04/29/21 Requesting physician: Markus Dunn Chief complaint: covid + w/ symptoms (low O2 sat) Narrative: [age] year gentleman was presented with COVID-19 infection and hypoxia. He was noticed to have mildly abnormal troponin levels. On discussing with him he has no chest discomfort. He is on high-flow oxygen and is feeling that his breathing is okay. At home also had no chest discomfort at any stage. In particular no chest tightness or sharp chest pain to suggest pulmonary embolism. [facility] Past Medical History Medical History (Updated 04/29/21 @ 06:45 by Kina Arredondo MD) CHF (congestive heart failure) Chronic renal failure Diabetes Hypertension Type 2 diabetes mellitus Surgical History Surgical History (Updated 04/29/21 @ 06:42 by Knia Arredondo MD) No pertinent past surgical history Social History Social History Housing: House Alcohol intake: unknown Patient Tobacco Use Status: Never used Tobacco e-Cigarette/Vaping Use: Never Used Use of substances other than those prescribed or required for medical reasons: Unknown Advance Directives: No Advance Directives Information Provided: No service: Yes Current occupational status: employed Current occupational exposures/hazards: No Meds Allergies Allergy/AdvReac Type Severity Reaction Status Date / Time No Known Allergies Allergy Verified 03/06/21 10:38 [No Known Allergies*] Active Medications: Current Medications Acetaminophen (Acetaminophen 325 Mg Tablet) 650 mg PO Q6H PRN PRN Reason: Pain, Mild (Pain Scale 1-3) Aspirin (Aspirin 81 Mg Tab.Chew) 81 mg PO DAILY [facility] Atenolol (Atenolol 25 Mg Tablet) 25 mg PO DAILY [facility]; Protocol Atorvastatin Calcium (Atorvastatin Calcium 20 Mg Tablet) 20 mg PO BEDTIME [facility] Dexamethasone Sodium Phosphate (Dexamethasone Sod Phosphate 4 Mg/Ml Vial) 6 mg IVPUSH DAILY [facility] Dextrose (Dextrose 50 % 25 Gm/50 Ml Vial) 25 gm IVPUSH Q15M PRN; Protocol PRN Reason: per Hypoglycemia Standing Ord. Docusate Sodium (Docusate Sodium 100 Mg Capsule) 100 mg PO DAILY PRN PRN Reason: Constipation Furosemide (Furosemide 40 Mg/4 Ml Vial) 40 mg IVPUSH BID@0900,1800 [facility]; Protocol Last Admin: 04/29/21 10:05 Dose: Not Given Documented by: Furosemide (Furosemide 40 Mg Tablet) 40 mg PO Q2D [facility]; Protocol Furosemide (Furosemide 40 Mg Tablet) 80 mg PO Q2D [facility]; Protocol Glucose (Glucose Gel 15 Gm Gel..Gram.) 15 gm PO Q15M PRN; Protocol PRN Reason: per Hypoglycemia Standing Ord. Heparin Sodium (Porcine) (Heparin Sodium,Porcine 5,000 Unit/Ml Vial) 5,000 unit SUBCUT Q12H [facility] Hydralazine HCl (Hydralazine Hcl 10 Mg Tablet) 40 mg PO TID [facility]; Protocol Insulin Glargine (Insulin Glargine,Hum.Rec.Anlog 100 Unit/Ml 10 Ml Vial) 18 unit SUBCUT QPM [facility] Insulin Human Lispro (Insulin Lispro 100 Unit/Ml 3 Ml Vial) 0 unit SUBCUT QIDACHS [facility]; Protocol Ondansetron HCl (Ondansetron Hcl 4 Mg/2 Ml Vial) 4 mg IVPUSH Q8H PRN PRN Reason: Nausea and Vomiting Pharmacy Consult (Consult Rx Perform Med Rec) 1 each MISCELLANE ONCE PRN PRN Reason: Consult order Sodium Chloride (0.9 % Sodium Chloride Flush 3 Ml Syringe) [facility] Last Admin: 04/29/21 10:38 Dose: 3 ml Documented by: Home Medications Medication Instructions Recorded Confirmed Last Taken Type isosorbide mononitrate 60 mg 60 mg PO DAILY 03/06/21 04/28/21 04/27/21 History tablet,extended release 24 hr sodium polystyrene sulfonate 30 g PO 2XW 03/06/21 04/28/21 04/27/21 History furosemide 40 mg tablet 40 mg PO Q2D 04/28/21 04/28/21 04/27/21 History furosemide 40 mg tablet 80 mg PO Q2D 04/28/21 04/28/21 04/26/21 History insulin glargine 100 unit/mL (3 18 unit SUBCUT QPM 04/28/21 04/28/21 04/27/21 History mL) subcutaneous pen (Basaglar KwikPen U-100 Insulin) Physical Exam Vital Signs: Vital Signs: Last Vital Signs Temp 97.5 F 04/29/21 09:47 Pulse 74 04/29/21 09:47 Resp 22 H 04/29/21 09:47 BP 113/86 04/29/21 09:47 Pulse Ox 96 04/29/21 09:47 Oxygen Flow Rate 15 04/28/21 21:37 Body Mass Index 30.5 GENERAL APPEARANCE: in no acute distress, on high-flow oxygen. NECK: no carotid bruit, no jugular venous distention. SKIN: no suspicious lesions, warm and dry. HEART: no murmurs, regular rate and rhythm. LUNGS: clear to auscultation bilaterally. ABDOMEN: soft, nontender. EXTREMITIES: no edema. PERIPHERAL PULSES: equal. NEUROLOGIC: No gross deficits, AAO X 3 Objective Labs and Meds Result diagrams: 04/28/21 22:17 04/28/21 22:17 Lab results: Laboratory Results - last 24 hr 04/28/21 04/28/21 04/28/21 22:17 22:17 22:17 WBC 8.0 RBC 5.04 Hgb 14.6 Hct 44.6 MCV 88.5 MCH 29.0 MCHC 32.7 RDW 13.2 Plt Count 186 MPV 11.1 Immature Gran % (Auto) 0.9 H Neut % (Auto) 85.1 H Lymph % (Auto) 7.4 L [place] % (Auto) 6.5 Eos % (Auto) 0.0 Baso % (Auto) 0.1 Lymph # (Auto) 0.6 L [place] # (Auto) 0.5 Eos # (Auto) 0.0 Baso # (Auto) 0.0 Abs Immat Gran (auto) 0.07 H Absolute Neuts (auto) 6.8 Absolute Nucleated RBC 0.000 Nucleated RBC % (auto) 0.0 D-Dimer High Sensitivty Sodium 134 L Potassium 5.2 H Chloride 105 Carbon Dioxide 18 L Anion Gap 16 BUN 104 H* Creatinine 3.29 H Estim Creat Clear Calc 27.2 Estimated GFR 19 Random Glucose 180 H Lactic Acid Calcium 7.7 L D Total Bilirubin 0.7 Direct Bilirubin 0.4 AST 61 H ALT 35 Alkaline Phosphatase 55 Troponin I High Sens 78.6 H* B-Natriuretic Peptide 1098 H Total Protein 5.9 L D Albumin 3.1 L D Urine Osmolality COVID-19 ([facility]) COVID-19 Clin Com 04/28/21 04/28/21 04/28/21 22:17 22:17 22:17 WBC RBC Hgb Hct MCV MCH MCHC RDW Plt Count MPV Immature Gran % (Auto) Neut % (Auto) Lymph % (Auto) [place] % (Auto) Eos % (Auto) Baso % (Auto) Lymph # (Auto) [place] # (Auto) Eos # (Auto) Baso # (Auto) Abs Immat Gran (auto) Absolute Neuts (auto) Absolute Nucleated RBC Nucleated RBC % (auto) D-Dimer High Sensitivty 964 Sodium Potassium Chloride Carbon Dioxide Anion Gap BUN Creatinine Estim Creat Clear Calc Estimated GFR Random Glucose Lactic Acid 1.5 Calcium Total Bilirubin Direct Bilirubin AST ALT Alkaline Phosphatase Troponin I High Sens B-Natriuretic Peptide Total Protein Albumin Urine Osmolality COVID-19 ([facility]) Positive A COVID-19 Clin Com See Note 04/29/21 04/29/21 07:59 09:44 WBC RBC Hgb Hct MCV MCH MCHC RDW Plt Count MPV Immature Gran % (Auto) Neut % (Auto) Lymph % (Auto) [place] % (Auto) Eos % (Auto) Baso % (Auto) Lymph # (Auto) [place] # (Auto) Eos # (Auto) Baso # (Auto) Abs Immat Gran (auto) Absolute Neuts (auto) Absolute Nucleated RBC Nucleated RBC % (auto) D-Dimer High Sensitivty Sodium Potassium Chloride Carbon Dioxide Anion Gap BUN Creatinine Estim Creat Clear Calc Estimated GFR Random Glucose Lactic Acid Calcium Total Bilirubin Direct Bilirubin AST ALT Alkaline Phosphatase Troponin I High Sens 55.5 H* B-Natriuretic Peptide Total Protein Albumin Urine Osmolality 380 COVID-19 ([facility]) COVID-19 Clin Com Imaging Radiologist's impression: Impressions Chest CT 04/29/21 00:00 IMPRESSION: Extensive multifocal airspace opacities most consistent with a multifocal pneumonia in the appropriate clinical setting. Mediastinal and hilar lymphadenopathy is likely reactive. Extensive coronary calcifications. 0.7 cm calculus in the upper pole of the right kidney. Assessment and Plan (1) Elevated troponin: Status: Acute (2) Acute hypoxemic respiratory failure due to COVID-19: Status: Acute [age] year gentleman presenting for shortness of breath due to COVID-19 infection. Denying any chest discomfort concerning cardiovascular symptoms at this point. EKG is not showing any dynamic changes. His high sensitivity troponin levels are 78 and 55. I think this is due to demand supply mismatch due to infection and hypoxia. No further workup is required. Thank you for allowing me to participate in the care of your patient. Please feel free to contact me if you have any questions. Procedures Date of Service Date of Service: 04/29/21
[2021-04-29 10:52] LABS: Creatinine Urine 57.09 mg/dL
[2021-04-29] MEDS: atenoloL 25 MG TABLET PO (10:54)
[2021-04-29] MEDS: Aspirin 81 MG TAB.CHEW PO (10:55)
[2021-04-29] MEDS: dexAMETHasone sod phosphate 4 MG/ML VIAL 6 MG IVPUSH (10:55)
[2021-04-29 11:12] LABS: Microalbum/Creatinine Ratio Ur 1907.5 ug/mg cr
[2021-04-29 11:14] LABS: Glucose, Whole Blood 218 mg/dL (60-115)
--- NOTE | 2021-04-29 11:15 | PC.NURSE ---
pt moved from prone to right side, tolerating well, sating at 98-94% on the high flow, ns on the monitor bp stable.
[2021-04-29] MEDS: Heparin Sodium,Porcine 5,000 UNIT/ML VIAL 5000 UNIT SUBCUT ×2 (11:43→21:52)
[2021-04-29] MEDS: 0.9 % Sodium Chloride 1,000 ML 75 ML IVCONT (11:44)
[2021-04-29] MEDS: hydrALAZINE HCl 10 MG TABLET 40 MG PO ×3 (11:57→21:53)
--- NOTE | 2021-04-29 12:05 | PC.NURSE ---
Patient alert and oriented x 3. Patient having diarrhea does not even feel it coming out. oxygen sats holding at 94-96% on hi flow. Patient no longer prone patient on right side. Will continue to monitor.
[2021-04-29 12:34] LABS: Glucose, Whole Blood 197 mg/dL (60-115)
[2021-04-29] MEDS: Insulin Lispro 100 UNIT/ML 3 ML VIAL SUBCUT ×3 (13:08→21:54)
--- NOTE | 2021-04-29 15:48 | PC.NURSE ---
Patient sleeping had to wake to give his hydralizine. blood pressure and vitals signs stable. oxygen sats 98 on high flow. tele: sinus rythym. Will continue to monitor.
--- NOTE | 2021-04-29 16:27 | PC.NURSE ---
Patient weaned to 80% on50 of FI02 High flow o2sat 90-92%. Patient tolerating well.
[2021-04-29 17:42] LABS: Glucose, Whole Blood 332 mg/dL (60-115)
[2021-04-29 20:50] LABS: Glucose, Whole Blood 290 mg/dL (60-115)
[2021-04-29] MEDS: Insulin Glargine,Hum.rec.anlog 100 UNIT/ML 10 ML VIAL 18 UNIT SUBCUT (21:53)
[2021-04-29] MEDS: Atorvastatin Calcium 20 MG TABLET PO (21:53)
[2021-04-30] VITALS (15 sets, daily range): BP systolic 130–185; BP diastolic 63–87; PULSE 60–76; RESP 8–20; TEMP 36.1–37.2; O2SAT 80–95
[2021-04-30 05:59] LABS: MANUAL DIFF FLAG NO
[2021-04-30 06:16] LABS: Hematocrit 44.9 % (42.0-52.0); Hemoglobin 14.8 g/dl (14.0-18.0); Imm Gran Abs Auto 0.11 X10*3/uL (0.00-0.03); Imm Gran Pct Auto 1.1 % (0.0-0.4); Lymphocytes Absolute Auto 0.6 X10*3/uL (1.2-4.9); Lymphocytes Percent Auto 6.1 % (20-40); Mean Corpuscular Hemoglobin 28.5 pg (27.0-33.0); Mean Corpuscular Volume 86.5 fL (80.0-98.0); Mean Platelet Volume 10.7 fL (9.4-12.4); Monocytes Absolute Auto 0.5 X10*3/uL (0.1-1.2); Monocytes Percent Auto 4.4 % (2-11); Neutrophils Absolute Auto 9.2 x10*3/uL (2.0-8.3); Neutrophils Percent Auto 88.4 % (45-73); Platelet Count 273 X10*3/uL (160-400); Red Blood Count 5.19 X10*6/uL (4.60-5.80); Red Cell Distribution Width 13.2 % (11.0-16.0); White Blood Count 10.4 X10*3/uL (4.8-10.8)
[2021-04-30 06:49] LABS: Anion Gap 16 (12-20); Blood Urea Nitrogen 97 mg/dL (9-16); Calcium 7.9 mg/dL (8.4-10.2); Carbon Dioxide 18 mmol/L (22-29); Chloride 111 mmol/L (96-108); Estimated Glomerular Filt Rate 29; Glucose Random 225 mg/dL (60-115); Potassium 5.2 mmol/L (3.3-5.1); Sodium 140 mmol/L (135-145)
[2021-04-30 07:54] LABS: Glucose, Whole Blood 211 mg/dL (60-115)
[2021-04-30 08:28] LABS: C Reactive Protein 5.86 mg/dL (< or = 0.50); Estimated Average Glucose 174 mg/dL; Hemoglobin A1c % 7.7 %
[2021-04-30 08:42] LABS: B Type Natriuretic Peptide 130 pg/mL (<100)
--- NOTE | 2021-04-30 08:42 | P.PNNP_ITS ---
Subjective Subjective Date of Service: 04/30/21 Physical Exam Vital Signs: Vital Signs: Last Vital Signs Temp 98.5 F 04/30/21 04:00 Pulse 71 04/30/21 04:00 Resp 18 04/30/21 08:03 BP 165/87 H 04/30/21 04:00 Pulse Ox 88 L 04/30/21 04:00 Oxygen Flow Rate 15 04/28/21 21:37 Body Mass Index 30.5 Const: General: cooperative and no acute distress Orientation/ consciousness: patient oriented x3 Eyes: General: appearance normal, both eyes and all related structures Pupils: Equal, round and reactive pupils present Resp: Effort & Inspection: normal respiratory effort Cardio: Rate: regular rate Rhythm: regular rhythm GI: Palpation (GI): Soft to palpation Auscultation: normal bowel sounds Skin: General skin exam: no rashes or lesions noted Neuro: General: patient oriented x3 Cranial nerves: Yes Equal, round and r eactive pupils present Cognition (Neuro): normal cognition Extrem: General: Yes normal to inspection Objective Data Labs CBC & Chem 7: 04/30/21 05:17 04/30/21 05:17 Labs: Laboratory Results - last 24 hr 04/29/21 04/29/21 04/29/21 07:59 09:44 09:44 WBC RBC Hgb Hct MCV MCH MCHC RDW Plt Count MPV Immature Gran % (Auto) Neut % (Auto) Lymph % (Auto) [place] % (Auto) Eos % (Auto) Baso % (Auto) Lymph # (Auto) [place] # (Auto) Eos # (Auto) Baso # (Auto) Abs Immat Gran (auto) Absolute Neuts (auto) Absolute Nucleated RBC Nucleated RBC % (auto) Sodium Potassium Chloride Carbon Dioxide Anion Gap BUN Creatinine Estim Creat Clear Calc Estimated GFR POC Glucose Random Glucose Estimat Average Glucose Hemoglobin A1c % Calcium Troponin I High Sens 55.5 H* C-Reactive Protein Urine Osmolality 380 Ur Random Sodium 66.0 Urine Creatinine 57.09 Urine Microalbumin 1089.0 Microalb/Creat Ratio 1907.5 04/29/21 04/29/21 04/29/21 11:06 12:28 17:36 WBC RBC Hgb Hct MCV MCH MCHC RDW Plt Count MPV Immature Gran % (Auto) Neut % (Auto) Lymph % (Auto) [place] % (Auto) Eos % (Auto) Baso % (Auto) Lymph # (Auto) [place] # (Auto) Eos # (Auto) Baso # (Auto) Abs Immat Gran (auto) Absolute Neuts (auto) Absolute Nucleated RBC Nucleated RBC % (auto) Sodium Potassium Chloride Carbon Dioxide Anion Gap BUN Creatinine Estim Creat Clear Calc Estimated GFR POC Glucose 218 H 197 H 332 H Random Glucose Estimat Average Glucose Hemoglobin A1c % Calcium Troponin I High Sens C-Reactive Protein Urine Osmolality Ur Random Sodium Urine Creatinine Urine Microalbumin Microalb/Creat Ratio 04/29/21 04/30/21 04/30/21 20:42 05:17 05:17 WBC 10.4 RBC 5.19 Hgb 14.8 Hct 44.9 MCV 86.5 MCH 28.5 MCHC 33.0 RDW 13.2 Plt Count 273 D MPV 10.7 Immature Gran % (Auto) 1.1 H Neut % (Auto) 88.4 H Lymph % (Auto) 6.1 L [place] % (Auto) 4.4 Eos % (Auto) 0.0 Baso % (Auto) 0.0 Lymph # (Auto) 0.6 L [place] # (Auto) 0.5 Eos # (Auto) 0.0 Baso # (Auto) 0.0 Abs Immat Gran (auto) 0.11 H Absolute Neuts (auto) 9.2 H Absolute Nucleated RBC 0.000 Nucleated RBC % (auto) 0.0 Sodium 140 Potassium 5.2 H Chloride 111 H Carbon Dioxide 18 L Anion Gap 16 BUN 97 H* Creatinine 2.24 H Estim Creat Clear Calc 40.0 Estimated GFR 29 POC Glucose 290 H Random Glucose 225 H Estimat Average Glucose Hemoglobin A1c % Calcium 7.9 L Troponin I High Sens C-Reactive Protein 5.86 H Urine Osmolality Ur Random Sodium Urine Creatinine Urine Microalbumin Microalb/Creat Ratio 04/30/21 04/30/21 05:17 07:44 WBC RBC Hgb Hct MCV MCH MCHC RDW Plt Count MPV Immature Gran % (Auto) Neut % (Auto) Lymph % (Auto) [place] % (Auto) Eos % (Auto) Baso % (Auto) Lymph # (Auto) [place] # (Auto) Eos # (Auto) Baso # (Auto) Abs Immat Gran (auto) Absolute Neuts (auto) Absolute Nucleated RBC Nucleated RBC % (auto) Sodium Potassium Chloride Carbon Dioxide Anion Gap BUN Creatinine Estim Creat Clear Calc Estimated GFR POC Glucose 211 H Random Glucose Estimat Average Glucose 174 Hemoglobin A1c % 7.7 Calcium Troponin I High Sens C-Reactive Protein Urine Osmolality Ur Random Sodium Urine Creatinine Urine Microalbumin Microalb/Creat Ratio Microbiology Microbiology Results: Microbiology 04/28/21 22:17 Blood - Venous Blood Culture - Preliminary No growth after 24 hours. 04/28/21 22:17 Blood - Venous Blood Culture - Preliminary No growth after 24 hours. Procedures Date of Service Date of Service: 04/30/21 Assessment & Plan Assessment and plan (1) Elevated troponin: Status: Acute (2) Acute hypoxemic respiratory failure due to COVID-19: Status: Acute (3) JÚNIOR (acute kidney injury): Status: Acute Assessment and Plan: resolving with IVF underlying CKD Assessment and Plan: [age] year gentleman presenting for shortness of breath due to COVID-19 infection. Denying any chest discomfort concerning cardiovascular symptoms at this point. Time Spent With Patient Time: Total time spent is greater than 50% in coordination of care (as documented) at patient's floor/unit and/or counseling patient: Progress Note: Quality Stroke Does the patient have a stroke diagnosis?: No
[2021-04-30] MEDS: Insulin Lispro 100 UNIT/ML 3 ML VIAL SUBCUT ×4 (08:49→20:59)
[2021-04-30] MEDS: hydrALAZINE HCl 10 MG TABLET 40 MG PO ×3 (08:49→20:58)
[2021-04-30] MEDS: Aspirin 81 MG TAB.CHEW PO (08:49)
[2021-04-30] MEDS: dexAMETHasone sod phosphate 4 MG/ML VIAL 6 MG IVPUSH (08:49)
[2021-04-30] MEDS: atenoloL 25 MG TABLET PO (08:49)
[2021-04-30 09:29] LABS: Procalcitonin 0.23 ng/mL
--- NOTE | 2021-04-30 10:16 | P.PNIM_ITS ---
Subjective Subjective Date of Service: 04/30/21 Interval History: comfortable on HFNC @ 55 Lpm, 75% fiO2 no fever or chest pain chronic leg swelling Review of Systems Review of Systems: Yes all other systems are reviewed and are negative Physical Exam Vital Signs: Vital Signs: Last Vital Signs Temp 98.3 F 04/30/21 08:00 Pulse 68 04/30/21 08:49 Resp 18 04/30/21 08:03 BP 143/68 H 04/30/21 08:49 Pulse Ox 91 L 04/30/21 08:00 Oxygen Flow Rate 15 04/28/21 21:37 Body Mass Index 30.5 Gen: in no acute distress HEENT: sclera anicteric, moist mucus membranes Neck: supple Lungs: clear to auscultation bilaterally Heart: regular rate and rhythm, no murmurs Abd: soft, non-tender, non-distended Ext: 1+ BLE edema Skin: warm/well-perfused Neuro: alert and oriented x3, no focal findings Psych: appropriate affect Objective Data Active Medications Acetaminophen (Acetaminophen 325 Mg Tablet) 650 mg PO Q6H PRN PRN Reason: Pain, Mild (Pain Scale 1-3) Aspirin (Aspirin 81 Mg Tab.Chew) 81 mg PO DAILY [facility] Last Admin: 04/30/21 08:49 Dose: 81 mg Documented by: ELIZA Atenolol (Atenolol 25 Mg Tablet) 25 mg PO DAILY [facility]; Protocol Last Admin: 04/30/21 08:49 Dose: 25 mg Documented by: ELIZA Atorvastatin Calcium (Atorvastatin Calcium 20 Mg Tablet) 20 mg PO BEDTIME [facility] Last Admin: 04/29/21 21:53 Dose: 20 mg Documented by: [facility] Dexamethasone Sodium Phosphate (Dexamethasone Sod Phosphate 4 Mg/Ml Vial) 6 mg IVPUSH DAILY [facility] Last Admin: 04/30/21 08:49 Dose: 6 mg Documented by: ELIZA Dextrose (Dextrose 50 % 25 Gm/50 Ml Vial) 25 gm IVPUSH Q15M PRN; Protocol PRN Reason: per Hypoglycemia Standing Ord. Docusate Sodium (Docusate Sodium 100 Mg Capsule) 100 mg PO DAILY PRN PRN Reason: Constipation Glucose (Glucose Gel 15 Gm Gel..Gram.) 15 gm PO Q15M PRN; Protocol PRN Reason: per Hypoglycemia Standing Ord. Heparin Sodium (Porcine) (Heparin Sodium,Porcine 5,000 Unit/Ml Vial) 5,000 unit SUBCUT Q12H [facility] Last Admin: 04/29/21 21:52 Dose: 5,000 unit Documented by: DAMARIS Hydralazine HCl (Hydralazine Hcl 10 Mg Tablet) 40 mg PO TID [facility]; Protocol Last Admin: 04/30/21 08:49 Dose: 40 mg Documented by: ELIZA Insulin Glargine (Insulin Glargine,Hum.Rec.Anlog 100 Unit/Ml 10 Ml Vial) 20 unit SUBCUT BEDTIME [facility] Insulin Human Lispro (Insulin Lispro 100 Unit/Ml 3 Ml Vial) 0 unit SUBCUT QIDACHS [facility]; Protocol Last Admin: 04/30/21 08:49 Dose: 4 unit Documented by: ELIZA Ondansetron HCl (Ondansetron Hcl 4 Mg/2 Ml Vial) 4 mg IVPUSH Q8H PRN PRN Reason: Nausea and Vomiting Pharmacy Consult (Consult Rx Perform Med Rec) 1 each MISCELLANE ONCE PRN PRN Reason: Consult order Sodium Chloride (0.9 % Sodium Chloride Flush 3 Ml Syringe) 3 ml IVFLUSH QSHIFT [facility] Last Admin: 04/30/21 08:49 Dose: Not Given Documented by: ELIZA Non-Admin Reason: IV Running Sodium Zirconium Cyclosilicate (Sodium Zirconium Cyclosilicate 5 Gm Powd.Pack) 5 gm PO ONCE ONE Stop: 04/30/21 10:06 Labs CBC & Chem 7: 04/30/21 05:17 04/30/21 05:17 Labs: Laboratory Results - last 24 hr 04/29/21 04/29/21 04/29/21 09:44 09:44 11:06 MCV MCH MCHC RDW Plt Count MPV Immature Gran % (Auto) Neut % (Auto) Lymph % (Auto) [place] % (Auto) Eos % (Auto) Baso % (Auto) Lymph # (Auto) [place] # (Auto) Eos # (Auto) Baso # (Auto) Abs Immat Gran (auto) Absolute Neuts (auto) Absolute Nucleated RBC Nucleated RBC % (auto) Anion Gap Estim Creat Clear Calc Estimated GFR POC Glucose 218 H Random Glucose Estimat Average Glucose Hemoglobin A1c % Calcium C-Reactive Protein B-Natriuretic Peptide Procalcitonin Urine Osmolality 380 Ur Random Sodium 66.0 Urine Creatinine 57.09 Urine Microalbumin 1089.0 Microalb/Creat Ratio 1907.5 04/29/21 04/29/21 04/29/21 12:28 17:36 20:42 MCV MCH MCHC RDW Plt Count MPV Immature Gran % (Auto) Neut % (Auto) Lymph % (Auto) [place] % (Auto) Eos % (Auto) Baso % (Auto) Lymph # (Auto) [place] # (Auto) Eos # (Auto) Baso # (Auto) Abs Immat Gran (auto) Absolute Neuts (auto) Absolute Nucleated RBC Nucleated RBC % (auto) Anion Gap Estim Creat Clear Calc Estimated GFR POC Glucose 197 H 332 H 290 H Random Glucose Estimat Average Glucose Hemoglobin A1c % Calcium C-Reactive Protein B-Natriuretic Peptide Procalcitonin Urine Osmolality Ur Random Sodium Urine Creatinine Urine Microalbumin Microalb/Creat Ratio 04/30/21 04/30/21 04/30/21 05:17 05:17 05:17 MCV 86.5 MCH 28.5 MCHC 33.0 RDW 13.2 Plt Count 273 D MPV 10.7 Immature Gran % (Auto) 1.1 H Neut % (Auto) 88.4 H Lymph % (Auto) 6.1 L [place] % (Auto) 4.4 Eos % (Auto) 0.0 Baso % (Auto) 0.0 Lymph # (Auto) 0.6 L [place] # (Auto) 0.5 Eos # (Auto) 0.0 Baso # (Auto) 0.0 Abs Immat Gran (auto) 0.11 H Absolute Neuts (auto) 9.2 H Absolute Nucleated RBC 0.000 Nucleated RBC % (auto) 0.0 Anion Gap 16 Estim Creat Clear Calc 40.0 Estimated GFR 29 POC Glucose Random Glucose 225 H Estimat Average Glucose Hemoglobin A1c % Calcium 7.9 L C-Reactive Protein 5.86 H B-Natriuretic Peptide Procalcitonin 0.23 Urine Osmolality Ur Random Sodium Urine Creatinine Urine Microalbumin Microalb/Creat Ratio 04/30/21 04/30/21 04/30/21 05:17 05:17 07:44 MCV MCH MCHC RDW Plt Count MPV Immature Gran % (Auto) Neut % (Auto) Lymph % (Auto) [place] % (Auto) Eos % (Auto) Baso % (Auto) Lymph # (Auto) [place] # (Auto) Eos # (Auto) Baso # (Auto) Abs Immat Gran (auto) Absolute Neuts (auto) Absolute Nucleated RBC Nucleated RBC % (auto) Anion Gap Estim Creat Clear Calc Estimated GFR POC Glucose 211 H Random Glucose Estimat Average Glucose 174 Hemoglobin A1c % 7.7 Calcium C-Reactive Protein B-Natriuretic Peptide 130 H Procalcitonin Urine Osmolality Ur Random Sodium Urine Creatinine Urine Microalbumin Microalb/Creat Ratio Microbiology Microbiology Results: Microbiology 04/28/21 22:17 Blood Culture - Preliminary Blood - Venous No growth after 24 hours. 04/28/21 22:17 Blood Culture - Preliminary Blood - Venous No growth after 24 hours. Assessment and Plan (1) Acute kidney injury superimposed on CKD: Status: Acute (2) Acute hypoxemic respiratory failure due to COVID-19: Status: Acute Assessment and Plan: hospital d#2 66yo unvaccinated M with DM2, CHF, CKD3, HTN admitted for hypoxia from COVID-19 PNA diagnosed 9d prior to admission # acute hypoxic resp failure - HFNC, wean as tolerated, encourage awake proning # COVID-19 pneumonia - dexamethasone d#07/20, ID consultation, trend inflammatory markers # CHF with unknown EF - got 1 dose furosemide then given IV fluids- hold both for now- pt appears euvolemic - TTE pending # troponin indeterminate - demand due to infection, no further workup per Cardiology # JÚNIOR/CKD3 - improved p IV hydration, Nephrolology following, avoid nephrotoxins, monitor BMP # DM2 with steroid-inducted hyperglycemia - increase basal and bolus insulin doses - A1c 7.7 # HLD - continue statin # HTN - continue atenolol, hydralazine # VTE ppx - UFH Quality Stroke Does the patient have a stroke diagnosis?: No VTE Prior VTE?: No VTE Risk Level:: Medical - moderate - high VTE Device Contraindication: Treatment Not Indicated VTE Drug Contraindication: N/A - Med Ordered
[2021-04-30 11:31] LABS: Glucose, Whole Blood 314 mg/dL (60-115)
[2021-04-30] MEDS: Heparin Sodium,Porcine 5,000 UNIT/ML VIAL 5000 UNIT SUBCUT ×2 (12:37→23:53)
[2021-04-30] MEDS: Sodium Zirconium Cyclosilicate 5 GM POWD.PACK PO (13:07)
--- NOTE | 2021-04-30 16:10 | MHC.CM.PN ---
Addendum entered by Clare Martinez 04/30/21 16:19: CM RECEIVED A RETURN CALL FROM PTS . SHE REPORTS IT IS JUST HER AND THE PT AT HOME AND PT IS MOSTLY INDEPENDENT BUT SHE HELPS HIM NEEDED. SHE REPORTS HE USES NO DME AND HAS NO IN HOME SERVICES. LI REPORTS SHE IS THE PTS HCP. 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 LI ALSO ASKS THAT HER DAUGHTER, HEIKE GAYTAN ([phone]) BE THE PRIMARY FAST FOOD SERVICES MANAGER SHE IS A NURSE. Original Note: CM ATTEMPTED TO REACH PTS , LI, VIA T/C ([phone]). VM MESSAGE LEFT INFORMING HER SHE WOULD BE CONTACTED AT A LATER TIME.
[2021-04-30 16:18] LABS: Glucose, Whole Blood 328 mg/dL (60-115)
[2021-04-30] MEDS: 0.9 % Sodium Chloride Flush 3 ML SYRINGE IVFLUSH ×2 (16:43→21:00)
[2021-04-30 20:16] LABS: Glucose, Whole Blood 347 mg/dL (60-115)
[2021-04-30] MEDS: Atorvastatin Calcium 20 MG TABLET PO (20:58)
[2021-04-30] MEDS: Insulin Glargine,Hum.rec.anlog 100 UNIT/ML 10 ML VIAL 20 UNIT SUBCUT (20:59)
[2021-05-01] VITALS (13 sets, daily range): BP systolic 148–174; BP diastolic 72–92; PULSE 63–75; RESP 18–22; TEMP 36.3–37.1; O2SAT 90–94; BMI 29.4
[2021-05-01 07:15] LABS: Hematocrit 44.9 % (42.0-52.0); Hemoglobin 14.7 g/dl (14.0-18.0); Mean Corpuscular HGB Conc 32.7 g/dl (31.0-36.0); Mean Corpuscular Hemoglobin 28.6 pg (27.0-33.0); Mean Corpuscular Volume 87.4 fL (80.0-98.0); Mean Platelet Volume 10.5 fL (9.4-12.4); Platelet Count 302 X10*3/uL (160-400); Red Blood Count 5.14 X10*6/uL (4.60-5.80); Red Cell Distribution Width 13.3 % (11.0-16.0); White Blood Count 9.8 X10*3/uL (4.8-10.8)
[2021-05-01 07:21] LABS: D Dimer High Sensitivity 1137 NG/ML
[2021-05-01 07:37] LABS: Glucose, Whole Blood 214 mg/dL (60-115)
[2021-05-01 07:43] LABS: B Type Natriuretic Peptide 106 pg/mL (<100)
[2021-05-01 07:49] LABS: Alanine Aminotransferase 23 U/L (0-40); Albumin Level 2.8 g/dL (3.5-5.0); Alkaline Phosphatase 61 U/L (39-117); Anion Gap 15 (12-20); Aspartate Amino Transferase 26 U/L (5-37); Bilirubin Direct 0.4 mg/dL (0.0-0.5); Bilirubin Total 0.7 mg/dL (0.0-1.0); Blood Urea Nitrogen 99 mg/dL (9-16); Calcium 8.1 mg/dL (8.4-10.2); Carbon Dioxide 19 mmol/L (22-29); Chloride 111 mmol/L (96-108); Creatinine Clr Calc Pharmacy 46.4; Estimated Glomerular Filt Rate 36; Glucose Random 264 mg/dL (60-115); Potassium 5.6 mmol/L (3.3-5.1); Sodium 139 mmol/L (135-145); Total Protein 5.6 g/dL (6.5-8.0)
[2021-05-01] MEDS: hydrALAZINE HCl 10 MG TABLET 40 MG PO ×3 (08:00→21:16)
[2021-05-01] MEDS: dexAMETHasone sod phosphate 4 MG/ML VIAL 6 MG IVPUSH (08:00)
[2021-05-01] MEDS: Aspirin 81 MG TAB.CHEW PO (08:00)
[2021-05-01] MEDS: atenoloL 25 MG TABLET PO (08:00)
[2021-05-01] MEDS: Insulin Lispro 100 UNIT/ML 3 ML VIAL SUBCUT ×4 (08:01→21:15)
[2021-05-01] MEDS: 0.9 % Sodium Chloride Flush 3 ML SYRINGE IVFLUSH ×3 (08:01→21:14)
--- NOTE | 2021-05-01 09:08 | MHC.CM.PN ---
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
[2021-05-01] MEDS: Sodium Zirconium Cyclosilicate 10 GM POWD.PACK PO ×3 (11:11→21:15)
[2021-05-01 11:18] LABS: Glucose, Whole Blood 354 mg/dL (60-115)
--- NOTE | 2021-05-01 11:27 | HO.PM.IMPN ---
Subjective Subjective Date of Service: 05/01/21 Interval History: On a little less O2 via HFNC Dyspnea improved No fever No chest pain Review of Systems Review of Systems: Yes all other systems are reviewed and are negative Physical Exam Vital Signs: Vital Signs: Last Vital Signs Temp 97.6 F 05/01/21 08:00 Pulse 75 05/01/21 08:00 Resp 22 H 05/01/21 08:20 BP 148/72 H 05/01/21 08:00 Pulse Ox 93 05/01/21 08:00 Oxygen Flow Rate 15 04/28/21 21:37 Body Mass Index 29.4 Gen: mild tachypnea on HFNC 50 LPM @ 65% FiO2 HEENT: sclera anicteric, moist mucus membranes Neck: supple Lungs: clear to auscultation bilaterally Heart: regular rate and rhythm, no murmurs Abd: soft, non-tender, non-distended Ext: 1+ BLE edema Skin: warm/well-perfused Neuro: alert and oriented x3, no focal findings Psych: appropriate affect Objective Data Active Medications Acetaminophen (Acetaminophen 325 Mg Tablet) 650 mg PO Q6H PRN PRN Reason: Pain, Mild (Pain Scale 1-3) Aspirin (Aspirin 81 Mg Tab.Chew) 81 mg PO DAILY [facility] Last Admin: 05/01/21 08:00 Dose: 81 mg Documented by: ROBERTA Atenolol (Atenolol 25 Mg Tablet) 25 mg PO DAILY [facility]; Protocol Last Admin: 05/01/21 08:00 Dose: 25 mg Documented by: ROBERTA Atorvastatin Calcium (Atorvastatin Calcium 20 Mg Tablet) 20 mg PO BEDTIME [facility] Last Admin: 04/30/21 20:58 Dose: 20 mg Documented by: IVAN Dexamethasone Sodium Phosphate (Dexamethasone Sod Phosphate 4 Mg/Ml Vial) 6 mg IVPUSH DAILY [facility] Last Admin: 05/01/21 08:00 Dose: 6 mg Documented by: ROBERTA Dextrose (Dextrose 50 % 25 Gm/50 Ml Vial) 25 gm IVPUSH Q15M PRN; Protocol PRN Reason: per Hypoglycemia Standing Ord. Docusate Sodium (Docusate Sodium 100 Mg Capsule) 100 mg PO DAILY PRN PRN Reason: Constipation Glucose (Glucose Gel 15 Gm Gel..Gram.) 15 gm PO Q15M PRN; Protocol PRN Reason: per Hypoglycemia Standing Ord. Heparin Sodium (Porcine) (Heparin Sodium,Porcine 5,000 Unit/Ml Vial) 5,000 unit SUBCUT Q12H [facility] Last Admin: 04/30/21 23:53 Dose: 5,000 unit Documented by: IVAN Hydralazine HCl (Hydralazine Hcl 10 Mg Tablet) 40 mg PO TID [facility]; Protocol Last Admin: 05/01/21 08:00 Dose: 40 mg Documented by: ROBERTA Insulin Glargine (Insulin Glargine,Hum.Rec.Anlog 100 Unit/Ml 10 Ml Vial) 22 unit SUBCUT BEDTIME [facility] Insulin Human Lispro (Insulin Lispro 100 Unit/Ml 3 Ml Vial) 0 unit SUBCUT QIDACHS [facility]; Protocol Last Admin: 05/01/21 08:01 Dose: 6 unit Documented by: ROBERTA Ondansetron HCl (Ondansetron Hcl 4 Mg/2 Ml Vial) 4 mg IVPUSH Q8H PRN PRN Reason: Nausea and Vomiting Pharmacy Consult (Consult Rx Perform Med Rec) 1 each MISCELLANE ONCE PRN PRN Reason: Consult order Sodium Chloride (0.9 % Sodium Chloride Flush 3 Ml Syringe) 3 ml IVFLUSH QSHIFT [facility] Last Admin: 05/01/21 08:01 Dose: 3 ml Documented by: ROBERTA Sodium Zirconium Cyclosilicate (Sodium Zirconium Cyclosilicate 10 Gm Powd.Pack) 10 gm PO TID [facility] Stop: 05/01/21 21:01 Last Admin: 05/01/21 11:11 Dose: 10 gm Documented by: ROBERTA Labs CBC & Chem 7: 05/01/21 06:57 05/01/21 06:57 Labs: Laboratory Results - last 24 hr 04/30/21 04/30/21 04/30/21 11:27 16:13 20:11 MCV MCH MCHC RDW Plt Count MPV Absolute Nucleated RBC Nucleated RBC % (auto) D-Dimer High Sensitivty Anion Gap Estim Creat Clear Calc Estimated GFR POC Glucose 314 H 328 H 347 H Random Glucose Calcium Total Bilirubin Direct Bilirubin AST ALT Alkaline Phosphatase B-Natriuretic Peptide Total Protein Albumin 05/01/21 05/01/21 05/01/21 06:57 06:57 06:57 MCV 87.4 MCH 28.6 MCHC 32.7 RDW 13.3 Plt Count 302 MPV 10.5 Absolute Nucleated RBC 0.000 Nucleated RBC % (auto) 0.0 D-Dimer High Sensitivty Anion Gap 15 Estim Creat Clear Calc 46.4 Estimated GFR 36 POC Glucose Random Glucose 264 H Calcium 8.1 L Total Bilirubin 0.7 Direct Bilirubin 0.4 AST 26 D ALT 23 Alkaline Phosphatase 61 B-Natriuretic Peptide 106 H Total Protein 5.6 L Albumin 2.8 L 05/01/21 05/01/21 05/01/21 06:57 07:30 11:08 MCV MCH MCHC RDW Plt Count MPV Absolute Nucleated RBC Nucleated RBC % (auto) D-Dimer High Sensitivty 1137 Anion Gap Estim Creat Clear Calc Estimated GFR POC Glucose 214 H 354 H* Random Glucose Calcium Total Bilirubin Direct Bilirubin AST ALT Alkaline Phosphatase B-Natriuretic Peptide Total Protein Albumin Microbiology Microbiology Results: Microbiology 04/28/21 22:17 Blood Culture - Preliminary Blood - Venous No growth after 48 hours. 04/28/21 22:17 Blood Culture - Preliminary Blood - Venous No growth after 48 hours. Assessment and Plan (1) Acute kidney injury superimposed on CKD: Status: Acute (2) Acute hypoxemic respiratory failure due to COVID-19: Status: Acute Assessment and Plan: hospital d#3 66yo unvaccinated M with DM2, CHF, CKD3, HTN admitted for hypoxia from COVID-19 PNA diagnosed 9d prior to admission # acute hypoxic resp fail - HFNC, wean as tolerated, encourage awake proning # COVID-19 pneumonia - dexamethasone d#08/17, ID consultation pending, trend inflammatory markers # CHF with unknown EF - got 1 dose furosemide then given IV fluids- hold both- pt appears euvolemic - TTE pending # troponin indeterminate - demand due to infection, no further workup per Cardiology # JÚNIOR/CKD3 - improved p IV hydration, Nephrolology following, avoid nephrotoxins, monitor BMP # DM2 with steroid-inducted hyperglycemia - increase basal and bolus insulin doses further - A1c 7.7 # HLD - continue statin # HTN - continue atenolol, hydralazine # VTE ppx - UFH Quality Stroke Does the patient have a stroke diagnosis?: No VTE Prior VTE?: No VTE Risk Level:: Medical - moderate - high VTE Device Contraindication: Treatment Not Indicated VTE Drug Contraindication: N/A - Med Ordered
[2021-05-01] MEDS: Heparin Sodium,Porcine 5,000 UNIT/ML VIAL 5000 UNIT SUBCUT ×2 (12:08→23:34)
[2021-05-01 16:43] LABS: Glucose, Whole Blood 317 mg/dL (60-115)
[2021-05-01 20:30] LABS: Glucose, Whole Blood 324 mg/dL (60-115)
[2021-05-01] MEDS: Insulin Glargine,Hum.rec.anlog 100 UNIT/ML 10 ML VIAL 22 UNIT SUBCUT (21:14)
[2021-05-01] MEDS: Atorvastatin Calcium 20 MG TABLET PO (21:15)
--- NOTE | 2021-05-01 21:31 | P.CNID_ITS ---
History of Present Illness Data of Consult Service Date: 05/01/21 Requesting physician: Andres [facility] Primary Care Provider: Unknown Physician HPI Reason for consult: COVID He presents to hospital with ten days shortness of breath as well as fatigue and cough. He has COVID He has some hypoxia with oxygen 4 liters Review of Systems Review of Systems: Yes all other systems are reviewed and are negative PMFSH Past Medical History Medical History (Updated 04/30/21 @ 08:44 by Alexander Suero MD) CHF (congestive heart failure) Chronic renal failure Diabetes Hypertension Type 2 diabetes mellitus Surgical History Surgical History (Updated 04/29/21 @ 06:42 by Kina Arredondo MD) No pertinent past surgical history Social History Social History Household Members: Significant Other Housing: House Do you presently have visiting nurse or other home services: No Alcohol intake: unknown Patient Tobacco Use Status: Never used Tobacco e-Cigarette/Vaping Use: Never Used service: No Current occupational status: employed Current occupational exposures/hazards: No Meds Allergies Allergy/AdvReac Type Severity Reaction Status Date / Time No Known Allergies Allergy Verified 03/06/21 10:38 [No Known Allergies*] Active Medications: Current Medications Acetaminophen (Acetaminophen 325 Mg Tablet) 650 mg PO Q6H PRN PRN Reason: Pain, Mild (Pain Scale 1-3) Aspirin (Aspirin 81 Mg Tab.Chew) 81 mg PO DAILY [facility] Last Admin: 05/01/21 08:00 Dose: 81 mg Documented by: Atenolol (Atenolol 25 Mg Tablet) 25 mg PO DAILY [facility]; Protocol Last Admin: 05/01/21 08:00 Dose: 25 mg Documented by: Atorvastatin Calcium (Atorvastatin Calcium 20 Mg Tablet) 20 mg PO BEDTIME [facility] Last Admin: 05/01/21 21:15 Dose: 20 mg Documented by: Dexamethasone Sodium Phosphate (Dexamethasone Sod Phosphate 4 Mg/Ml Vial) 6 mg IVPUSH DAILY [facility] Last Admin: 05/01/21 08:00 Dose: 6 mg Documented by: Dextrose (Dextrose 50 % 25 Gm/50 Ml Vial) 25 gm IVPUSH Q15M PRN; Protocol PRN Reason: per Hypoglycemia Standing Ord. Docusate Sodium (Docusate Sodium 100 Mg Capsule) 100 mg PO DAILY PRN PRN Reason: Constipation Glucose (Glucose Gel 15 Gm Gel..Gram.) 15 gm PO Q15M PRN; Protocol PRN Reason: per Hypoglycemia Standing Ord. Heparin Sodium (Porcine) (Heparin Sodium,Porcine 5,000 Unit/Ml Vial) 5,000 unit SUBCUT Q12H [facility] Last Admin: 05/01/21 12:08 Dose: 5,000 unit Documented by: Hydralazine HCl (Hydralazine Hcl 10 Mg Tablet) 40 mg PO TID [facility]; Protocol Last Admin: 05/01/21 21:16 Dose: 40 mg Documented by: Insulin Glargine (Insulin Glargine,Hum.Rec.Anlog 100 Unit/Ml 10 Ml Vial) 22 unit SUBCUT BEDTIME [facility] Last Admin: 05/01/21 21:14 Dose: 22 unit Documented by: Insulin Human Lispro (Insulin Lispro 100 Unit/Ml 3 Ml Vial) 0 unit SUBCUT QIDACHS [facility]; Protocol Last Admin: 05/01/21 21:15 Dose: 12 unit Documented by: Ondansetron HCl (Ondansetron Hcl 4 Mg/2 Ml Vial) 4 mg IVPUSH Q8H PRN PRN Reason: Nausea and Vomiting Pharmacy Consult (Consult Rx Perform Med Rec) 1 each MISCELLANE ONCE PRN PRN Reason: Consult order Sodium Chloride (0.9 % Sodium Chloride Flush 3 Ml Syringe) 3 ml IVFLUSH [facility] Last Admin: 05/01/21 21:14 Dose: 3 ml Documented by: Home Medications Medication Instructions Recorded Confirmed Last Taken Type isosorbide mononitrate 60 mg 60 mg PO DAILY 03/06/21 04/28/21 04/27/21 History tablet,extended release 24 hr sodium polystyrene sulfonate 30 g PO 2XW 03/06/21 04/28/21 04/27/21 History furosemide 40 mg tablet 40 mg PO Q2D 04/28/21 04/28/21 04/27/21 History furosemide 40 mg tablet 80 mg PO Q2D 04/28/21 04/28/21 04/26/21 History insulin glargine 100 unit/mL (3 18 unit SUBCUT QPM 04/28/21 04/28/21 04/27/21 History mL) subcutaneous pen (Basaglar KwikPen U-100 Insulin) Physical Exam Vital Signs: Vital Signs: Last Vital Signs Temp 98.4 F 05/01/21 19:00 Pulse 70 05/01/21 21:16 Resp 20 05/01/21 19:13 BP 174/86 H 05/01/21 21:16 Pulse Ox 92 05/01/21 19:00 Oxygen Flow Rate 15 04/28/21 21:37 Body Mass Index 29.4 HENMT: Mouth: Normal oral and palatal mucosa present Resp: Effort & Inspection: able to speak in complete sentences and audible wheezes GI: Palpation (GI): Soft to palpation and nontender Extrem: General: Yes normal to inspection Results Labs CBC & Chem 7: 05/01/21 06:57 05/01/21 06:57 Labs: Short CBC 05/01/21 Range/Units 06:57 WBC 9.8 (4.8-10.8) X10*3/uL Hgb 14.7 (14.0-18.0) g/dl Hct 44.9 (42.0-52.0) % Plt Count 302 (160-400) X10*3/uL BMP 05/01/21 06:57 Sodium 139 Potassium 5.6 H Chloride 111 H Carbon Dioxide 19 L BUN 99 H* Creatinine 1.90 H Calcium 8.1 L Liver Function 05/01/21 Range/Units 06:57 Total Bilirubin 0.7 (0.0-1.0) mg/dL Direct Bilirubin 0.4 (0.0-0.5) mg/dL AST 26 D (5-37) U/L ALT 23 (0-40) U/L Alkaline Phosphatase 61 (39-117) U/L Albumin 2.8 L (3.5-5.0) g/dL Microbiology Microbiology Results: Microbiology 04/28/21 22:17 Blood - Venous Blood Culture - Preliminary No growth after 48 hours. 04/28/21 22:17 Blood - Venous Blood Culture - Preliminary No growth after 48 hours. Assessment and Plan (1) Acute hypoxemic respiratory failure due to COVID-19: Status: Acute He has COVID but over 10 days He has hypoxia Would continue oxygen.' Would continue Dexamethasone No Remdesivir since over seven days. Consider monoclonal antibody if worsens
--- NOTE | 2021-05-01 22:49 | PM.PNNEP ---
Subjective Subjective Date of Service: 05/02/21 Interval history: On COVID isolation OnO2 via HFNC Dyspnea improved No fever No chest pain Physical Exam Vital Signs: Vital Signs: Last Vital Signs Temp 98.4 F 05/01/21 19:00 Pulse 70 05/01/21 21:16 Resp 20 05/01/21 19:13 BP 174/86 H 05/01/21 21:16 Pulse Ox 92 05/01/21 19:00 Oxygen Flow Rate 15 04/28/21 21:37 Body Mass Index 29.4 HENMT Mouth:?Normal oral and palatal mucosa present Resp Effort & Inspection:?able to speak in complete sentences and audible wheezes GI Palpation (GI):?Soft to palpation and nontender Extrem General:?Yes normal to inspection Objective Data Labs CBC & Chem 7: 05/01/21 06:57 05/02/21 06:33 Labs: Laboratory Results - last 24 hr 05/01/21 05/01/21 05/01/21 06:57 06:57 06:57 WBC 9.8 RBC 5.14 Hgb 14.7 Hct 44.9 MCV 87.4 MCH 28.6 MCHC 32.7 RDW 13.3 Plt Count 302 MPV 10.5 Absolute Nucleated RBC 0.000 Nucleated RBC % (auto) 0.0 D-Dimer High Sensitivty Sodium 139 Potassium 5.6 H Chloride 111 H Carbon Dioxide 19 L Anion Gap 15 BUN 99 H* Creatinine 1.90 H Estim Creat Clear Calc 46.4 Estimated GFR 36 POC Glucose Random Glucose 264 H Calcium 8.1 L Total Bilirubin 0.7 Direct Bilirubin 0.4 AST 26 D ALT 23 Alkaline Phosphatase 61 B-Natriuretic Peptide 106 H Total Protein 5.6 L Albumin 2.8 L 05/01/21 05/01/21 05/01/21 06:57 07:30 11:08 WBC RBC Hgb Hct MCV MCH MCHC RDW Plt Count MPV Absolute Nucleated RBC Nucleated RBC % (auto) D-Dimer High Sensitivty 1137 Sodium Potassium Chloride Carbon Dioxide Anion Gap BUN Creatinine Estim Creat Clear Calc Estimated GFR POC Glucose 214 H 354 H* Random Glucose Calcium Total Bilirubin Direct Bilirubin AST ALT Alkaline Phosphatase B-Natriuretic Peptide Total Protein Albumin 05/01/21 05/01/21 16:33 20:26 WBC RBC Hgb Hct MCV MCH MCHC RDW Plt Count MPV Absolute Nucleated RBC Nucleated RBC % (auto) D-Dimer High Sensitivty Sodium Potassium Chloride Carbon Dioxide Anion Gap BUN Creatinine Estim Creat Clear Calc Estimated GFR POC Glucose 317 H 324 H Random Glucose Calcium Total Bilirubin Direct Bilirubin AST ALT Alkaline Phosphatase B-Natriuretic Peptide Total Protein Albumin Microbiology Microbiology Results: Microbiology 04/28/21 22:17 Blood - Venous Blood Culture - Preliminary No growth after 48 hours. 04/28/21 22:17 Blood - Venous Blood Culture - Preliminary No growth after 48 hours. Procedures Date of Service Date of Service: 05/01/21 Assessment & Plan Assessment and plan (1) JÚNIOR (acute kidney injury): Status: Acute Assessment and Plan: 66yo unvaccinated M with DM2, CHF, CKD3, HTN admitted for hypoxia from COVID-19 PNA diagnosed 9d prior to admission # acute hypoxic resp fail - HFNC, wean as tolerated, encourage awake proning # COVID-19 pneumonia - dexamethasone d#08/17, ID consultation pending, trend inflammatory markers # CHF with unknown EF - got 1 dose furosemide then given IV fluids- hold both- pt appears euvolemic - TTE pending # troponin indeterminate - demand due to infection, no further workup per Cardiology # JÚNIOR/CKD3 - improved p IV hydration, Nephrolology following, avoid nephrotoxins, monitor BMP # DM2 with steroid-inducted hyperglycemia - increase basal and bolus insulin doses further - A1c 7.7 # HLD - continue statin # HTN - continue atenolol, hydralazine # VTE ppx - UFH (2) Chronic renal failure: Status: Acute (3) Acute hypoxemic respiratory failure due to COVID-19: Status: Acute Assessment and Plan: 66yo unvaccinated Male with 1. JÚNIOR 2. hypoxia from COVID-19 PNA 3. CKD 3 O2 COVID Rx as per medical team K is better - Off Lokelma Increase Hydrallazine as needed Creat is better Thx Dr. Louis Time Spent With Patient Time: Total time spent is greater than 50% in coordination of care (as documented) at patient's floor/unit and/or counseling patient: Progress Note: Quality Stroke Does the patient have a stroke diagnosis?: No
[2021-05-02] VITALS (16 sets, daily range): BP systolic 148–174; BP diastolic 74–86; PULSE 54–81; RESP 17–20; TEMP 36.3–37.3; O2SAT 87–94; BMI 29.2
[2021-05-02 07:10] LABS: Anion Gap 14 (12-20); Blood Urea Nitrogen 90 mg/dL (9-16); C Reactive Protein 1.29 mg/dL (< or = 0.50); Calcium 8.4 mg/dL (8.4-10.2); Carbon Dioxide 21 mmol/L (22-29); Chloride 109 mmol/L (96-108); Creatinine Clr Calc Pharmacy 54.7; Estimated Glomerular Filt Rate 43; Glucose Random 186 mg/dL (60-115); Potassium 5.4 mmol/L (3.3-5.1); Sodium 139 mmol/L (135-145)
[2021-05-02 07:30] LABS: Procalcitonin 0.08 ng/mL
[2021-05-02 07:49] LABS: Glucose, Whole Blood 181 mg/dL (60-115)
[2021-05-02] MEDS: 0.9 % Sodium Chloride Flush 3 ML SYRINGE IVFLUSH ×3 (08:31→20:47)
[2021-05-02] MEDS: atenoloL 25 MG TABLET PO (08:32)
[2021-05-02] MEDS: Sodium Zirconium Cyclosilicate 10 GM POWD.PACK PO ×3 (08:32→20:42)
[2021-05-02] MEDS: Insulin Lispro 100 UNIT/ML 3 ML VIAL SUBCUT ×4 (08:32→20:44)
[2021-05-02] MEDS: Aspirin 81 MG TAB.CHEW PO (08:32)
[2021-05-02] MEDS: hydrALAZINE HCl 10 MG TABLET 40 MG PO ×3 (08:32→20:40)
[2021-05-02] MEDS: dexAMETHasone sod phosphate 4 MG/ML VIAL 6 MG IVPUSH (08:32)
--- NOTE | 2021-05-02 10:41 | HO.PM.IMPN ---
Subjective Subjective Date of Service: 05/02/21 Interval History: dyspnea improved no chest pain no fever Review of Systems Review of Systems: Yes all other systems are reviewed and are negative Physical Exam Vital Signs: Vital Signs: Last Vital Signs Temp 99.2 F 05/02/21 07:40 Pulse 78 05/02/21 08:32 Resp 20 05/02/21 07:57 BP 148/75 H 05/02/21 08:32 Pulse Ox 91 L 05/02/21 07:40 Body Mass Index 29.2 Gen: mild tachypnea on HFNC 50 LPM @ 60% FiO2 HEENT: sclera anicteric, moist mucus membranes Neck: supple Lungs: clear to auscultation bilaterally Heart: regular rate and rhythm, no murmurs Abd: soft, non-tender, non-distended Ext: 1+ BLE edema Skin: warm/well-perfused Neuro: alert and oriented x3, no focal findings Psych: appropriate affect Objective Data Active Medications Acetaminophen (Acetaminophen 325 Mg Tablet) 650 mg PO Q6H PRN PRN Reason: Pain, Mild (Pain Scale 1-3) Aspirin (Aspirin 81 Mg Tab.Chew) 81 mg PO DAILY [facility] Last Admin: 05/02/21 08:32 Dose: 81 mg Documented by: ROBERTA Atenolol (Atenolol 25 Mg Tablet) 25 mg PO DAILY [facility]; Protocol Last Admin: 05/02/21 08:32 Dose: 25 mg Documented by: ROBERTA Atorvastatin Calcium (Atorvastatin Calcium 20 Mg Tablet) 20 mg PO BEDTIME [facility] Last Admin: 05/01/21 21:15 Dose: 20 mg Documented by: MELI Dexamethasone Sodium Phosphate (Dexamethasone Sod Phosphate 4 Mg/Ml Vial) 6 mg IVPUSH DAILY [facility] Last Admin: 05/02/21 08:32 Dose: 6 mg Documented by: ROBERTA Dextrose (Dextrose 50 % 25 Gm/50 Ml Vial) 25 gm IVPUSH Q15M PRN; Protocol PRN Reason: per Hypoglycemia Standing Ord. Docusate Sodium (Docusate Sodium 100 Mg Capsule) 100 mg PO DAILY PRN PRN Reason: Constipation Glucose (Glucose Gel 15 Gm Gel..Gram.) 15 gm PO Q15M PRN; Protocol PRN Reason: per Hypoglycemia Standing Ord. Heparin Sodium (Porcine) (Heparin Sodium,Porcine 5,000 Unit/Ml Vial) 5,000 unit SUBCUT Q12H [facility] Last Admin: 05/01/21 23:34 Dose: 5,000 unit Documented by: MELI Hydralazine HCl (Hydralazine Hcl 10 Mg Tablet) 40 mg PO TID [facility]; Protocol Last Admin: 05/02/21 08:32 Dose: 40 mg Documented by: ROBERTA Insulin Glargine (Insulin Glargine,Hum.Rec.Anlog 100 Unit/Ml 10 Ml Vial) 22 unit SUBCUT BEDTIME [facility] Last Admin: 05/01/21 21:14 Dose: 22 unit Documented by: MELI Insulin Human Lispro (Insulin Lispro 100 Unit/Ml 3 Ml Vial) 0 unit SUBCUT QIDACHS [facility]; Protocol Last Admin: 05/02/21 08:32 Dose: 2 unit Documented by: ROBERTA Ondansetron HCl (Ondansetron Hcl 4 Mg/2 Ml Vial) 4 mg IVPUSH Q8H PRN PRN Reason: Nausea and Vomiting Pharmacy Consult (Consult Rx Perform Med Rec) 1 each MISCELLANE ONCE PRN PRN Reason: Consult order Sodium Chloride (0.9 % Sodium Chloride Flush 3 Ml Syringe) 3 ml IVFLUSH QSHIFT [facility] Last Admin: 05/02/21 08:31 Dose: 3 ml Documented by: ROBERTA Sodium Zirconium Cyclosilicate (Sodium Zirconium Cyclosilicate 10 Gm Powd.Pack) 10 gm PO TID [facility] Stop: 05/02/21 21:01 Last Admin: 05/02/21 08:32 Dose: 10 gm Documented by: ROBERTA Labs CBC & Chem 7: 05/01/21 06:57 05/02/21 06:33 Labs: Laboratory Results - last 24 hr 05/01/21 05/01/21 05/01/21 11:08 16:33 20:26 Anion Gap Estim Creat Clear Calc Estimated GFR POC Glucose 354 H* 317 H 324 H Random Glucose Calcium C-Reactive Protein Procalcitonin 05/02/21 05/02/21 05/02/21 06:33 06:33 07:44 Anion Gap 14 Estim Creat Clear Calc 54.7 Estimated GFR 43 POC Glucose 181 H Random Glucose 186 H Calcium 8.4 C-Reactive Protein 1.29 H Procalcitonin 0.08 Assessment and Plan (1) Acute kidney injury superimposed on CKD: Status: Acute (2) Acute hypoxemic respiratory failure due to COVID-19: Status: Acute Assessment and Plan: hospital d#4 66yo unvaccinated M with DM2, CHF, CKD3, HTN admitted for hypoxia from COVID-19 PNA diagnosed 9d prior to admission # acute hypoxic respiratory failure - HFNC, wean as tolerated, encourage awake proning # COVID-19 pneumonia - dexamethasone d#09/17, ID consulted, trend inflammatory markers # CHF with unknown EF - got 1 dose furosemide then given IV fluids then held both once pt appeared euvolemic - TTE pending # troponin indeterminate - likely demand ischemia due to infection, no further workup per Cardiology # JÚNIOR/CKD3 - continues to improve p IV hydration, Nephrolology following, avoid nephrotoxins, monitor BMP # hyperK - will give another round of Lokelma. pt on Kayexelate as outpt # DM2 with steroid-inducted hyperglycemia - increase basal and bolus insulin doses further - A1c 7.7 # HLD - continue statin # HTN - continue atenolol, hydralazine # VTE ppx - UFH # dispo - continue hospitalization for HFNC Quality Stroke Does the patient have a stroke diagnosis?: No VTE Prior VTE?: No VTE Risk Level:: Medical - moderate - high VTE Device Contraindication: Treatment Not Indicated VTE Drug Contraindication: N/A - Med Ordered
[2021-05-02 11:46] LABS: Glucose, Whole Blood 326 mg/dL (60-115)
[2021-05-02] MEDS: Heparin Sodium,Porcine 5,000 UNIT/ML VIAL 5000 UNIT SUBCUT ×2 (12:09→23:12)
[2021-05-02 16:30] LABS: Glucose, Whole Blood 329 mg/dL (60-115)
[2021-05-02 20:17] LABS: Glucose, Whole Blood 308 mg/dL (60-115)
[2021-05-02] MEDS: Atorvastatin Calcium 20 MG TABLET PO (20:41)
[2021-05-02] MEDS: Insulin Glargine,Hum.rec.anlog 100 UNIT/ML 10 ML VIAL 24 UNIT SUBCUT (20:43)
[2021-05-03] VITALS (12 sets, daily range): BP systolic 150–170; BP diastolic 80–87; PULSE 60–74; RESP 16–22; TEMP 35.5–36.7; O2SAT 87–92
[2021-05-03 06:52] LABS: Hematocrit 43.6 % (42.0-52.0); Hemoglobin 14.4 g/dl (14.0-18.0); Mean Corpuscular Hemoglobin 28.6 pg (27.0-33.0); Mean Corpuscular Volume 86.5 fL (80.0-98.0); Mean Platelet Volume 10.6 fL (9.4-12.4); Platelet Count 289 X10*3/uL (160-400); Red Blood Count 5.04 X10*6/uL (4.60-5.80); Red Cell Distribution Width 13.2 % (11.0-16.0); White Blood Count 7.8 X10*3/uL (4.8-10.8)
[2021-05-03 07:10] LABS: Anion Gap 13 (12-20); Blood Urea Nitrogen 81 mg/dL (9-16); Calcium 8.2 mg/dL (8.4-10.2); Carbon Dioxide 22 mmol/L (22-29); Chloride 109 mmol/L (96-108); Creatinine Clr Calc Pharmacy 60.3; Estimated Glomerular Filt Rate 48; Glucose Random 133 mg/dL (60-115); Sodium 139 mmol/L (135-145)
[2021-05-03 07:24] LABS: Glucose, Whole Blood 153 mg/dL (60-115)
[2021-05-03] MEDS: atenoloL 25 MG TABLET PO (08:16)
[2021-05-03] MEDS: Aspirin 81 MG TAB.CHEW PO (08:16)
[2021-05-03] MEDS: dexAMETHasone sod phosphate 4 MG/ML VIAL 6 MG IVPUSH (08:17)
[2021-05-03] MEDS: Insulin Lispro 100 UNIT/ML 3 ML VIAL SUBCUT ×4 (08:17→20:41)
[2021-05-03] MEDS: hydrALAZINE HCl 50 MG TABLET PO ×3 (08:26→20:41)
[2021-05-03] MEDS: 0.9 % Sodium Chloride Flush 3 ML SYRINGE IVFLUSH ×3 (08:26→20:40)
[2021-05-03 09:04] LABS: D Dimer High Sensitivity 4311 NG/ML
--- NOTE | 2021-05-03 11:12 | P.PNIM_ITS ---
Subjective Subjective Date of Service: 05/03/21 Interval History: cc: sob interval history: feels well despite increasing o2 requirements Cardiovascular Cardiovascular: Reports no additional cardiovascular complaints Gastrointestinal Gastrointestinal: Reports no additional gastrointestinal complaints Physical Exam Vital Signs: Vital Signs: Last Vital Signs Temp 97 F 05/03/21 07:19 Pulse 69 05/03/21 08:26 Resp 22 H 05/03/21 07:19 BP 159/81 H 05/03/21 08:26 Pulse Ox 87 L 05/03/21 07:19 Oxygen Flow Rate 15 04/28/21 21:37 Body Mass Index 29.2 General: AO X 3, weak appearing Resp: Crackles bilateral, mild accessory muscles used CVS: S1,S2,RRR GI: soft, non tender, non distended Neuro: motor grossly intact, alert Psych: appropriate affect, appropriate insight Objective Data Active Medications Acetaminophen (Acetaminophen 325 Mg Tablet) 650 mg PO Q6H PRN PRN Reason: Pain, Mild (Pain Scale 1-3) Aspirin (Aspirin 81 Mg Tab.Chew) 81 mg PO DAILY [facility] Last Admin: 05/03/21 08:16 Dose: 81 mg Documented by: BRIANNA Atenolol (Atenolol 25 Mg Tablet) 25 mg PO DAILY [facility]; Protocol Last Admin: 05/03/21 08:16 Dose: 25 mg Documented by: BRIANNA Atorvastatin Calcium (Atorvastatin Calcium 20 Mg Tablet) 20 mg PO BEDTIME [facility] Last Admin: 05/02/21 20:41 Dose: 20 mg Documented by: MELI Dexamethasone Sodium Phosphate (Dexamethasone Sod Phosphate 4 Mg/Ml Vial) 6 mg IVPUSH DAILY [facility] Last Admin: 05/03/21 08:17 Dose: 6 mg Documented by: BRIANNA Dextrose (Dextrose 50 % 25 Gm/50 Ml Vial) 25 gm IVPUSH Q15M PRN; Protocol PRN Reason: per Hypoglycemia Standing Ord. Docusate Sodium (Docusate Sodium 100 Mg Capsule) 100 mg PO DAILY PRN PRN Reason: Constipation Glucose (Glucose Gel 15 Gm Gel..Gram.) 15 gm PO Q15M PRN; Protocol PRN Reason: per Hypoglycemia Standing Ord. Heparin Sodium (Porcine) (Heparin Sodium,Porcine 5,000 Unit/Ml Vial) 5,000 unit SUBCUT Q12H [facility] Last Admin: 05/02/21 23:12 Dose: 5,000 unit Documented by: MELI Hydralazine HCl (Hydralazine Hcl 50 Mg Tablet) 50 mg PO TID [facility]; Protocol Last Admin: 05/03/21 08:26 Dose: 50 mg Documented by: BRIANNA Insulin Glargine (Insulin Glargine,Hum.Rec.Anlog 100 Unit/Ml 10 Ml Vial) 24 unit SUBCUT BEDTIME [facility] Last Admin: 05/02/21 20:43 Dose: 24 unit Documented by: MELI Insulin Human Lispro (Insulin Lispro 100 Unit/Ml 3 Ml Vial) 0 unit SUBCUT QIDACHS [facility]; Protocol Last Admin: 05/03/21 08:17 Dose: 5 unit Documented by: BRIANNA Ondansetron HCl (Ondansetron Hcl 4 Mg/2 Ml Vial) 4 mg IVPUSH Q8H PRN PRN Reason: Nausea and Vomiting Pharmacy Consult (Consult Rx Perform Med Rec) 1 each MISCELLANE ONCE PRN PRN Reason: Consult order Sodium Chloride (0.9 % Sodium Chloride Flush 3 Ml Syringe) 3 ml IVFLUSH QSHIFT [facility] Last Admin: 05/03/21 08:26 Dose: 3 ml Documented by: BRIANNA Labs CBC & Chem 7: 05/03/21 06:17 05/03/21 06:17 Labs: Laboratory Results - last 24 hr 05/02/21 05/02/21 05/02/21 11:38 16:26 20:13 MCV MCH MCHC RDW Plt Count MPV Absolute Nucleated RBC Nucleated RBC % (auto) D-Dimer High Sensitivty Anion Gap Estim Creat Clear Calc Estimated GFR POC Glucose 326 H 329 H 308 H Random Glucose Calcium 05/03/21 05/03/21 05/03/21 06:17 06:17 06:17 MCV 86.5 MCH 28.6 MCHC 33.0 RDW 13.2 Plt Count 289 MPV 10.6 Absolute Nucleated RBC 0.000 Nucleated RBC % (auto) 0.0 D-Dimer High Sensitivty 4311 Anion Gap 13 Estim Creat Clear Calc 60.3 Estimated GFR 48 POC Glucose Random Glucose 133 H Calcium 8.2 L 05/03/21 07:19 MCV MCH MCHC RDW Plt Count MPV Absolute Nucleated RBC Nucleated RBC % (auto) D-Dimer High Sensitivty Anion Gap Estim Creat Clear Calc Estimated GFR POC Glucose 153 H Random Glucose Calcium Assessment and Plan (1) Acute kidney injury superimposed on CKD: Status: Acute (2) Acute hypoxemic respiratory failure due to COVID-19: Status: Acute Assessment and Plan: hospital d#5 66yo unvaccinated M with DM2, CHF, CKD3, HTN admitted for hypoxia from COVID-19 PNA diagnosed 9d prior to admission acute hypoxic respiratory failure - HFNC, wean as tolerated, encourage awake proning COVID-19 pneumonia - dexamethasone d#5/, ID appreciated, trend inflammatory markers CHF with unknown EF - got 1 dose furosemide then given IV fluids then held both once pt appeared euvolemic - TTE pending troponin indeterminate - likely demand ischemia due to infection, no further workup per Cardiology JÚNIOR/CKD3 - continues to improve p IV hydration, Nephrolology following, avoid nephrotoxins, monitor BMP hyperK - will give another round of Lokelma. pt on Kayexelate as outpt DM2 with steroid-inducted hyperglycemia - increase basal and bolus insulin doses further - A1c 7.7 HLD - continue statin HTN - continue atenolol, hydralazine VTE ppx - UFH dispo - continue hospitalization for HFNC Quality Stroke Does the patient have a stroke diagnosis?: No VTE Prior VTE?: No VTE Risk Level:: Medical - moderate - high VTE Device Contraindication: Treatment Not Indicated VTE Drug Contraindication: N/A - Med Ordered
[2021-05-03 11:25] LABS: Glucose, Whole Blood 296 mg/dL (60-115)
[2021-05-03] MEDS: Heparin Sodium,Porcine 5,000 UNIT/ML VIAL 5000 UNIT SUBCUT ×2 (12:15→23:49)
[2021-05-03 16:02] LABS: Glucose, Whole Blood 277 mg/dL (60-115)
[2021-05-03 19:59] LABS: Glucose, Whole Blood 307 mg/dL (60-115)
[2021-05-03] MEDS: Atorvastatin Calcium 20 MG TABLET PO (20:41)
[2021-05-03] MEDS: Insulin Glargine,Hum.rec.anlog 100 UNIT/ML 10 ML VIAL 24 UNIT SUBCUT (20:41)
[2021-05-04] VITALS (16 sets, daily range): BP systolic 131–186; BP diastolic 66–92; PULSE 56–80; RESP 18–20; TEMP 36.1–36.8; O2SAT 85–94
[2021-05-04 07:10] LABS: Hematocrit 46.9 % (42.0-52.0); Hemoglobin 15.3 g/dl (14.0-18.0); Mean Corpuscular HGB Conc 32.6 g/dl (31.0-36.0); Mean Corpuscular Hemoglobin 28.2 pg (27.0-33.0); Mean Corpuscular Volume 86.4 fL (80.0-98.0); Mean Platelet Volume 10.7 fL (9.4-12.4); Platelet Count 279 X10*3/uL (160-400); Red Blood Count 5.43 X10*6/uL (4.60-5.80); Red Cell Distribution Width 13.1 % (11.0-16.0); White Blood Count 6.4 X10*3/uL (4.8-10.8)
[2021-05-04 07:24] LABS: D Dimer High Sensitivity 8003 NG/ML
[2021-05-04 07:36] LABS: Glucose, Whole Blood 158 mg/dL (60-115)
[2021-05-04 07:47] LABS: Alanine Aminotransferase 23 U/L (0-40); Albumin Level 2.7 g/dL (3.5-5.0); Alkaline Phosphatase 59 U/L (39-117); Anion Gap 15 (12-20); Aspartate Amino Transferase 29 U/L (5-37); Bilirubin Direct 0.5 mg/dL (0.0-0.5); Bilirubin Total 0.8 mg/dL (0.0-1.0); Blood Urea Nitrogen 81 mg/dL (9-16); C Reactive Protein 4.82 mg/dL (< or = 0.50); Calcium 8.4 mg/dL (8.4-10.2); Carbon Dioxide 20 mmol/L (22-29); Chloride 108 mmol/L (96-108); Creatinine Clr Calc Pharmacy 59.9; Estimated Glomerular Filt Rate 48; Glucose Fasting 156 mg/dL (60-99); Potassium 5.3 mmol/L (3.3-5.1); Sodium 138 mmol/L (135-145); Total Protein 6.2 g/dL (6.5-8.0)
[2021-05-04] MEDS: dexAMETHasone sod phosphate 4 MG/ML VIAL 6 MG IVPUSH (08:15)
[2021-05-04] MEDS: Insulin Lispro 100 UNIT/ML 3 ML VIAL SUBCUT ×4 (08:15→21:39)
[2021-05-04] MEDS: Aspirin 81 MG TAB.CHEW PO (08:16)
[2021-05-04] MEDS: atenoloL 25 MG TABLET PO (08:16)
[2021-05-04] MEDS: Enoxaparin Sodium 40 MG/0.4 ML SYRINGE SUBCUT ×2 (08:16→18:35)
[2021-05-04] MEDS: hydrALAZINE HCl 50 MG TABLET PO ×3 (08:16→21:40)
[2021-05-04] MEDS: 0.9 % Sodium Chloride Flush 3 ML SYRINGE IVFLUSH ×3 (08:30→21:39)
--- NOTE | 2021-05-04 10:18 | P.PNIM_ITS ---
Subjective Subjective Date of Service: 05/04/21 Interval History: cc: sob interval history: feels well despite increasing o2 requirements Cardiovascular Cardiovascular: Reports no additional cardiovascular complaints Gastrointestinal Gastrointestinal: Reports no additional gastrointestinal complaints Physical Exam Vital Signs: Vital Signs: Last Vital Signs Temp 98.2 F 05/04/21 08:00 Pulse 71 05/04/21 08:00 Resp 20 05/04/21 08:00 BP 155/78 H 05/04/21 08:00 Pulse Ox 87 L 05/04/21 08:00 Oxygen Flow Rate 15 04/28/21 21:37 Body Mass Index 29.2 General: AO X 3, weak appearing Resp:? Crackles bilateral, mild accessory muscles used CVS: S1,S2,RRR GI: soft, non tender, non distended Neuro:? motor grossly intact, alert Psych: appropriate affect, appropriate insight? Objective Data Active Medications Acetaminophen (Acetaminophen 325 Mg Tablet) 650 mg PO Q6H PRN PRN Reason: Pain, Mild (Pain Scale 1-3) Aspirin (Aspirin 81 Mg Tab.Chew) 81 mg PO DAILY [facility] Last Admin: 05/04/21 08:16 Dose: 81 mg Documented by: ISAAC Atenolol (Atenolol 25 Mg Tablet) 25 mg PO DAILY [facility]; Protocol Last Admin: 05/04/21 08:16 Dose: 25 mg Documented by: ISAAC Atorvastatin Calcium (Atorvastatin Calcium 20 Mg Tablet) 20 mg PO BEDTIME [facility] Last Admin: 05/03/21 20:41 Dose: 20 mg Documented by: IVAN Dexamethasone Sodium Phosphate (Dexamethasone Sod Phosphate 4 Mg/Ml Vial) 6 mg IVPUSH DAILY [facility] Last Admin: 05/04/21 08:15 Dose: 6 mg Documented by: ISAAC Dextrose (Dextrose 50 % 25 Gm/50 Ml Vial) 25 gm IVPUSH Q15M PRN; Protocol PRN Reason: per Hypoglycemia Standing Ord. Docusate Sodium (Docusate Sodium 100 Mg Capsule) 100 mg PO DAILY PRN PRN Reason: Constipation Enoxaparin Sodium (Enoxaparin Sodium 40 Mg/0.4 Ml Syringe) 40 mg SUBCUT Q12H [facility] Last Admin: 05/04/21 08:16 Dose: 40 mg Documented by: ISAAC Glucose (Glucose Gel 15 Gm Gel..Gram.) 15 gm PO Q15M PRN; Protocol PRN Reason: per Hypoglycemia Standing Ord. Hydralazine HCl (Hydralazine Hcl 50 Mg Tablet) 50 mg PO TID [facility]; Protocol Last Admin: 05/04/21 08:16 Dose: 50 mg Documented by: ISAAC Insulin Glargine (Insulin Glargine,Hum.Rec.Anlog 100 Unit/Ml 10 Ml Vial) 24 unit SUBCUT BEDTIME [facility] Last Admin: 05/03/21 20:41 Dose: 24 unit Documented by: IVAN Insulin Human Lispro (Insulin Lispro 100 Unit/Ml 3 Ml Vial) 0 unit SUBCUT QIDACHS [facility]; Protocol Last Admin: 05/04/21 08:15 Dose: 5 unit Documented by: ISAAC Ondansetron HCl (Ondansetron Hcl 4 Mg/2 Ml Vial) 4 mg IVPUSH Q8H PRN PRN Reason: Nausea and Vomiting Pharmacy Consult (Consult Rx Perform Med Rec) 1 each MISCELLANE ONCE PRN PRN Reason: Consult order Sodium Chloride (0.9 % Sodium Chloride Flush 3 Ml Syringe) 3 ml IVFLUSH QSHIFT [facility] Last Admin: 05/04/21 08:30 Dose: 3 ml Documented by: ISAAC Labs CBC & Chem 7: 05/04/21 06:53 05/04/21 06:53 Labs: Laboratory Results - last 24 hr 05/03/21 05/03/21 05/03/21 11:18 15:58 19:55 MCV MCH MCHC RDW Plt Count MPV Absolute Nucleated RBC Nucleated RBC % (auto) D-Dimer High Sensitivty Anion Gap Estim Creat Clear Calc Estimated GFR POC Glucose 296 H 277 H 307 H Fasting Glucose Calcium Total Bilirubin Direct Bilirubin AST ALT Alkaline Phosphatase C-Reactive Protein Total Protein Albumin 05/04/21 05/04/21 05/04/21 06:53 06:53 06:53 MCV 86.4 MCH 28.2 MCHC 32.6 RDW 13.1 Plt Count 279 MPV 10.7 Absolute Nucleated RBC 0.000 Nucleated RBC % (auto) 0.0 D-Dimer High Sensitivty 8003 Anion Gap 15 Estim Creat Clear Calc 59.9 Estimated GFR 48 POC Glucose Fasting Glucose 156 H Calcium 8.4 Total Bilirubin 0.8 Direct Bilirubin 0.5 AST 29 ALT 23 Alkaline Phosphatase 59 C-Reactive Protein 4.82 H Total Protein 6.2 L Albumin 2.7 L 05/04/21 07:29 MCV MCH MCHC RDW Plt Count MPV Absolute Nucleated RBC Nucleated RBC % (auto) D-Dimer High Sensitivty Anion Gap Estim Creat Clear Calc Estimated GFR POC Glucose 158 H Fasting Glucose Calcium Total Bilirubin Direct Bilirubin AST ALT Alkaline Phosphatase C-Reactive Protein Total Protein Albumin Microbiology Microbiology Results: Microbiology 04/28/21 22:17 Blood Culture - Final Blood - Venous No growth after 5 days. 04/28/21 22:17 Blood Culture - Final Blood - Venous No growth after 5 days. Assessment and Plan (1) Acute kidney injury superimposed on CKD: Status: Acute (2) Acute hypoxemic respiratory failure due to COVID-19: Status: Acute Assessment and Plan: hospital d#6 66yo unvaccinated M with DM2, CHF, CKD3, HTN admitted for hypoxia from COVID-19 PNA diagnosed 9d prior to admission acute hypoxic respiratory failure - HFNC, wean as tolerated, encourage awake proning saturating high 80s low 90s COVID-19 pneumonia - dexamethasone d#6/, ID appreciated, trend inflammatory markers - worse today will add moderate dose lovenox CHF with unknown EF - got 1 dose furosemide then given IV fluids then held both once pt appeared euvolemic - TTE pending troponin indeterminate - likely demand ischemia due to infection, no further workup per Cardiology JÚNIOR/CKD3 stable around 1.4 now hyperK 5.3 today, monitor DM2 with steroid-inducted hyperglycemia - basal and bolus insulin - A1c 7.7 HLD - continue statin HTN - continue atenolol, hydralazine dispo - continue hospitalization for HFNC Quality Stroke Does the patient have a stroke diagnosis?: No VTE Prior VTE?: No VTE Risk Level:: Medical - moderate - high VTE Device Contraindication: Treatment Not Indicated VTE Drug Contraindication: N/A - Med Ordered
[2021-05-04 11:46] LABS: Glucose, Whole Blood 209 mg/dL (60-115)
[2021-05-04 16:10] LABS: Glucose, Whole Blood 213 mg/dL (60-115)
[2021-05-04 19:56] LABS: Glucose, Whole Blood 251 mg/dL (60-115)
[2021-05-04] MEDS: Atorvastatin Calcium 20 MG TABLET PO (21:39)
[2021-05-04] MEDS: Insulin Glargine,Hum.rec.anlog 100 UNIT/ML 10 ML VIAL 24 UNIT SUBCUT (21:39)
[2021-05-05] VITALS (14 sets, daily range): BP systolic 135–149; BP diastolic 69–81; PULSE 58–74; RESP 20–24; TEMP 36.1–37.2; O2SAT 87–90
[2021-05-05 07:02] LABS: Hematocrit 44.3 % (42.0-52.0); Hemoglobin 14.8 g/dl (14.0-18.0); Mean Corpuscular HGB Conc 33.4 g/dl (31.0-36.0); Mean Corpuscular Hemoglobin 29.1 pg (27.0-33.0); Mean Corpuscular Volume 87.2 fL (80.0-98.0); Mean Platelet Volume 10.9 fL (9.4-12.4); Platelet Count 263 X10*3/uL (160-400); Red Blood Count 5.08 X10*6/uL (4.60-5.80); Red Cell Distribution Width 13.2 % (11.0-16.0); White Blood Count 5.1 X10*3/uL (4.8-10.8)
[2021-05-05 07:25] LABS: Anion Gap 14 (12-20); Blood Urea Nitrogen 89 mg/dL (9-16); Calcium 8.4 mg/dL (8.4-10.2); Carbon Dioxide 21 mmol/L (22-29); Chloride 105 mmol/L (96-108); Creatinine Clr Calc Pharmacy 57.2; Estimated Glomerular Filt Rate 45; Glucose Fasting 115 mg/dL (60-99); Potassium 5.7 mmol/L (3.3-5.1); Sodium 134 mmol/L (135-145)
[2021-05-05 08:29] LABS: Glucose, Whole Blood 133 mg/dL (60-115)
[2021-05-05] MEDS: Insulin Lispro 100 UNIT/ML 3 ML VIAL SUBCUT ×5 (08:38→20:19)
[2021-05-05] MEDS: hydrALAZINE HCl 50 MG TABLET PO ×3 (08:38→20:19)
[2021-05-05] MEDS: Aspirin 81 MG TAB.CHEW PO (08:38)
[2021-05-05] MEDS: Enoxaparin Sodium 40 MG/0.4 ML SYRINGE SUBCUT ×2 (08:39→20:18)
[2021-05-05] MEDS: atenoloL 25 MG TABLET PO (08:39)
[2021-05-05] MEDS: 0.9 % Sodium Chloride Flush 3 ML SYRINGE IVFLUSH ×3 (08:39→20:19)
[2021-05-05] MEDS: dexAMETHasone sod phosphate 4 MG/ML VIAL 6 MG IVPUSH (08:39)
--- NOTE | 2021-05-05 11:25 | P.PNIM_ITS ---
Subjective Subjective Date of Service: 05/05/21 Interval History: cc: sob interval history: feels well despite high o2 requirements Cardiovascular Cardiovascular: Reports no additional cardiovascular complaints Respiratory Respiratory: Reports no additional respiratory complaints Physical Exam Vital Signs: Vital Signs: Last Vital Signs Temp 99.0 F 05/05/21 07:57 Pulse 70 05/05/21 11:15 Resp 24 H 05/05/21 11:15 BP 139/69 05/05/21 11:15 Pulse Ox 89 L 05/05/21 11:15 Oxygen Flow Rate 15 04/28/21 21:37 Body Mass Index 29.2 General: AO X 3, weak appearing Resp:? Crackles bilateral, mild accessory muscles used CVS: S1,S2,RRR GI: soft, non tender, non distended Neuro:? motor grossly intact, alert Psych: appropriate affect, appropriate insight? Objective Data Active Medications Acetaminophen (Acetaminophen 325 Mg Tablet) 650 mg PO Q6H PRN PRN Reason: Pain, Mild (Pain Scale 1-3) Aspirin (Aspirin 81 Mg Tab.Chew) 81 mg PO DAILY [facility] Last Admin: 05/05/21 08:38 Dose: 81 mg Documented by: MARYCRUZ Atenolol (Atenolol 25 Mg Tablet) 25 mg PO DAILY [facility]; Protocol Last Admin: 05/05/21 08:39 Dose: 25 mg Documented by: MARYCRUZ Atorvastatin Calcium (Atorvastatin Calcium 20 Mg Tablet) 20 mg PO BEDTIME [facility] Last Admin: 05/04/21 21:39 Dose: 20 mg Documented by: IVAN Dexamethasone Sodium Phosphate (Dexamethasone Sod Phosphate 4 Mg/Ml Vial) 6 mg IVPUSH DAILY [facility] Last Admin: 05/05/21 08:39 Dose: 6 mg Documented by: MARYCRUZ Dextrose (Dextrose 50 % 25 Gm/50 Ml Vial) 25 gm IVPUSH Q15M PRN; Protocol PRN Reason: per Hypoglycemia Standing Ord. Docusate Sodium (Docusate Sodium 100 Mg Capsule) 100 mg PO DAILY PRN PRN Reason: Constipation Enoxaparin Sodium (Enoxaparin Sodium 40 Mg/0.4 Ml Syringe) 40 mg SUBCUT Q12H [facility] Last Admin: 05/05/21 08:39 Dose: 40 mg Documented by: MARYCRUZ Glucose (Glucose Gel 15 Gm Gel..Gram.) 15 gm PO Q15M PRN; Protocol PRN Reason: per Hypoglycemia Standing Ord. Hydralazine HCl (Hydralazine Hcl 50 Mg Tablet) 50 mg PO TID [facility]; Protocol Last Admin: 05/05/21 08:38 Dose: 50 mg Documented by: MARYCRUZ Insulin Glargine (Insulin Glargine,Hum.Rec.Anlog 100 Unit/Ml 10 Ml Vial) 24 unit SUBCUT BEDTIME [facility] Last Admin: 05/04/21 21:39 Dose: 24 unit Documented by: IVAN Insulin Human Lispro (Insulin Lispro 100 Unit/Ml 3 Ml Vial) 0 unit SUBCUT QIDACHS [facility]; Protocol Last Admin: 05/05/21 08:38 Dose: 2 unit Documented by: MARYCRUZ Ondansetron HCl (Ondansetron Hcl 4 Mg/2 Ml Vial) 4 mg IVPUSH Q8H PRN PRN Reason: Nausea and Vomiting Pharmacy Consult (Consult Rx Perform Med Rec) 1 each MISCELLANE ONCE PRN PRN Reason: Consult order Sodium Chloride (0.9 % Sodium Chloride Flush 3 Ml Syringe) 3 ml IVFLUSH QSHIFT [facility] Last Admin: 05/05/21 08:39 Dose: 3 ml Documented by: MARYCRUZ Labs CBC & Chem 7: 05/05/21 06:26 05/05/21 06:26 Labs: Laboratory Results - last 24 hr 05/04/21 05/04/21 05/04/21 11:16 16:07 19:52 MCV MCH MCHC RDW Plt Count MPV Absolute Nucleated RBC Nucleated RBC % (auto) Anion Gap Estim Creat Clear Calc Estimated GFR POC Glucose 209 H 213 H 251 H Fasting Glucose Calcium 05/05/21 05/05/21 05/05/21 06:26 06:26 07:48 MCV 87.2 MCH 29.1 MCHC 33.4 RDW 13.2 Plt Count 263 MPV 10.9 Absolute Nucleated RBC 0.000 Nucleated RBC % (auto) 0.0 Anion Gap 14 Estim Creat Clear Calc 57.2 Estimated GFR 45 POC Glucose 133 H Fasting Glucose 115 H Calcium 8.4 Assessment and Plan (1) Acute kidney injury superimposed on CKD: Status: Acute (2) Acute hypoxemic respiratory failure due to COVID-19: Status: Acute Assessment and Plan: hospital d#7 66yo unvaccinated M with DM2, CHF, CKD3, HTN admitted for hypoxia from COVID-19 PNA diagnosed 9d prior to admission acute hypoxic respiratory failure - HFNC, wean as tolerated, encourage awake proning saturating high 80s low 90s On high-flow at 50 L a minute with 80% FiO2 COVID-19 pneumonia - dexamethasone d#7, ID appreciated, trend inflammatory markers changed to moderate dose lovenox CHF with unknown EF - got 1 dose furosemide then given IV fluids then held both once pt appeared euvolemic - TTE pending troponin indeterminate - likely demand ischemia due to infection, no further workup per Cardiology JÚNIOR/CKD3 stable around 1.4- 1.5 now hyperK 5.7 today, will give [employer] monitor DM2 with steroid-inducted hyperglycemia - basal and bolus insulin - A1c 7.7 HLD - continue statin HTN - continue atenolol, hydralazine dispo - continue hospitalization for HFNC Quality Stroke Does the patient have a stroke diagnosis?: No VTE Prior VTE?: No VTE Risk Level:: Medical - moderate - high VTE Device Contraindication: Treatment Not Indicated VTE Drug Contraindication: N/A - Med Ordered
[2021-05-05 11:49] LABS: Glucose, Whole Blood 277 mg/dL (60-115)
--- NOTE | 2021-05-05 12:06 | MHC.CM.PN ---
Per ROUNDS discussion, Patient is not yet medically cleared for dc(High Flow O2, IV Decadron)Home is the goal for dc and CM will follow for possible need to adjust the dc plan.
[2021-05-05] MEDS: Sodium Zirconium Cyclosilicate 5 GM POWD.PACK PO (12:13)
[2021-05-05 16:19] LABS: Glucose, Whole Blood 380 mg/dL (60-115)
[2021-05-05 19:39] LABS: Glucose, Whole Blood 315 mg/dL (60-115)
[2021-05-05] MEDS: Atorvastatin Calcium 20 MG TABLET PO (20:19)
[2021-05-05] MEDS: Insulin Glargine,Hum.rec.anlog 100 UNIT/ML 10 ML VIAL 24 UNIT SUBCUT (20:19)
[2021-05-06] VITALS (14 sets, daily range): BP systolic 137–167; BP diastolic 71–93; PULSE 53–93; RESP 18–24; TEMP 36.2–37; O2SAT 90–95; BMI 29.4
--- NOTE | 2021-05-06 | ECG_ITS ---
Test Reason : change in rhythm Blood Pressure : / mmHG Vent. Rate : 077 BPM Atrial Rate : 076 BPM P-R Int : 000 ms QRS Dur : 078 ms QT Int : 406 ms P-R-T Axes : 000 -27 067 degrees QTc Int : 459 ms Normal sinus rhythm with 1st degree A-V block Nonspecific ST abnormality Moderate voltage criteria for LVH, may be normal variant Abnormal ECG No significant changes seen Referred By: Maninder Prather Electronically Signed By:SHEILA MATOS MD
[2021-05-06 05:41] LABS: Hematocrit 45.5 % (42.0-52.0); Hemoglobin 14.8 g/dl (14.0-18.0); Mean Corpuscular HGB Conc 32.5 g/dl (31.0-36.0); Mean Corpuscular Hemoglobin 28.4 pg (27.0-33.0); Mean Corpuscular Volume 87.2 fL (80.0-98.0); Mean Platelet Volume 11.3 fL (9.4-12.4); Platelet Count 271 X10*3/uL (160-400); Red Blood Count 5.22 X10*6/uL (4.60-5.80); Red Cell Distribution Width 12.9 % (11.0-16.0); White Blood Count 6.1 X10*3/uL (4.8-10.8)
[2021-05-06 05:58] LABS: D Dimer High Sensitivity 4044 NG/ML
[2021-05-06 06:04] LABS: Anion Gap 17 (12-20); Blood Urea Nitrogen 99 mg/dL (9-16); C Reactive Protein 6.36 mg/dL (< or = 0.50); Calcium 8.3 mg/dL (8.4-10.2); Carbon Dioxide 18 mmol/L (22-29); Chloride 104 mmol/L (96-108); Creatinine Clr Calc Pharmacy 51.6; Estimated Glomerular Filt Rate 40; Glucose Fasting 120 mg/dL (60-99); Lactate Dehydrogenase 494 U/L (118-273); Potassium 5.6 mmol/L (3.3-5.1); Sodium 133 mmol/L (135-145)
[2021-05-06 07:54] LABS: Glucose, Whole Blood 133 mg/dL (60-115)
[2021-05-06] MEDS: Insulin Lispro 100 UNIT/ML 3 ML VIAL SUBCUT ×4 (08:07→20:56)
[2021-05-06] MEDS: atenoloL 25 MG TABLET PO (08:07)
[2021-05-06] MEDS: 0.9 % Sodium Chloride Flush 3 ML SYRINGE IVFLUSH ×3 (08:07→20:59)
[2021-05-06] MEDS: Aspirin 81 MG TAB.CHEW PO (08:07)
[2021-05-06] MEDS: Enoxaparin Sodium 40 MG/0.4 ML SYRINGE SUBCUT ×2 (08:07→21:00)
[2021-05-06] MEDS: hydrALAZINE HCl 50 MG TABLET PO ×3 (08:08→20:59)
[2021-05-06] MEDS: Sodium Zirconium Cyclosilicate 5 GM POWD.PACK PO (10:05)
[2021-05-06] MEDS: dexAMETHasone sod phosphate 4 MG/ML VIAL 6 MG IVPUSH (10:05)
--- NOTE | 2021-05-06 10:51 | P.PNIM_ITS ---
Subjective Subjective Date of Service: 05/06/21 Interval History: cc: sob interval history: feels well despite high o2 requirements Cardiovascular Cardiovascular: Reports no additional cardiovascular complaints Respiratory Respiratory: Reports no additional respiratory complaints Physical Exam Vital Signs: Vital Signs: Last Vital Signs Temp 97.2 F 05/06/21 07:36 Pulse 72 05/06/21 07:36 Resp 24 H 05/06/21 08:30 BP 139/73 05/06/21 07:36 Pulse Ox 91 L 05/06/21 07:36 Oxygen Flow Rate 15 04/28/21 21:37 Body Mass Index 29.4 General: AO X 3, weak appearing Resp:? Crackles bilateral, mild accessory muscles used CVS: S1,S2,RRR GI: soft, non tender, non distended Neuro:? motor grossly intact, alert Psych: appropriate affect, appropriate insight? Objective Data Active Medications Acetaminophen (Acetaminophen 325 Mg Tablet) 650 mg PO Q6H PRN PRN Reason: Pain, Mild (Pain Scale 1-3) Aspirin (Aspirin 81 Mg Tab.Chew) 81 mg PO DAILY [facility] Last Admin: 05/06/21 08:07 Dose: 81 mg Documented by: JOSEFA Atenolol (Atenolol 25 Mg Tablet) 25 mg PO DAILY [facility]; Protocol Last Admin: 05/06/21 08:07 Dose: 25 mg Documented by: JOSEFA Atorvastatin Calcium (Atorvastatin Calcium 20 Mg Tablet) 20 mg PO BEDTIME [facility] Last Admin: 05/05/21 20:19 Dose: 20 mg Documented by: FELIX Dexamethasone Sodium Phosphate (Dexamethasone Sod Phosphate 4 Mg/Ml Vial) 6 mg IVPUSH DAILY [facility] Last Admin: 05/06/21 10:05 Dose: 6 mg Documented by: JOSEFA Dextrose (Dextrose 50 % 25 Gm/50 Ml Vial) 25 gm IVPUSH Q15M PRN; Protocol PRN Reason: per Hypoglycemia Standing Ord. Docusate Sodium (Docusate Sodium 100 Mg Capsule) 100 mg PO DAILY PRN PRN Reason: Constipation Enoxaparin Sodium (Enoxaparin Sodium 40 Mg/0.4 Ml Syringe) 40 mg SUBCUT Q12H [facility] Last Admin: 05/06/21 08:07 Dose: 40 mg Documented by: JOSEFA Glucose (Glucose Gel 15 Gm Gel..Gram.) 15 gm PO Q15M PRN; Protocol PRN Reason: per Hypoglycemia Standing Ord. Hydralazine HCl (Hydralazine Hcl 50 Mg Tablet) 50 mg PO TID [facility]; Protocol Last Admin: 05/06/21 08:08 Dose: 50 mg Documented by: JOSEFA Insulin Glargine (Insulin Glargine,Hum.Rec.Anlog 100 Unit/Ml 10 Ml Vial) 24 unit SUBCUT BEDTIME [facility] Last Admin: 05/05/21 20:19 Dose: 24 unit Documented by: FELIX Insulin Human Lispro (Insulin Lispro 100 Unit/Ml 3 Ml Vial) 0 unit SUBCUT QIDACHS [facility]; Protocol Last Admin: 05/06/21 08:07 Dose: 2 unit Documented by: JOSEFA Ondansetron HCl (Ondansetron Hcl 4 Mg/2 Ml Vial) 4 mg IVPUSH Q8H PRN PRN Reason: Nausea and Vomiting Pharmacy Consult (Consult Rx Perform Med Rec) 1 each MISCELLANE ONCE PRN PRN Reason: Consult order Sodium Chloride (0.9 % Sodium Chloride Flush 3 Ml Syringe) 3 ml IVFLUSH QSHIFT [facility] Last Admin: 05/06/21 08:07 Dose: 3 ml Documented by: JOSEFA Labs CBC & Chem 7: 05/06/21 05:22 05/06/21 05:22 Labs: Laboratory Results - last 24 hr 05/05/21 05/05/21 05/05/21 11:03 16:13 19:33 MCV MCH MCHC RDW Plt Count MPV Absolute Nucleated RBC Nucleated RBC % (auto) D-Dimer High Sensitivty Anion Gap Estim Creat Clear Calc Estimated GFR POC Glucose 277 H 380 H* 315 H Fasting Glucose Calcium Lactate Dehydrogenase C-Reactive Protein 05/06/21 05/06/21 05/06/21 05:22 05:22 05:22 MCV 87.2 MCH 28.4 MCHC 32.5 RDW 12.9 Plt Count 271 MPV 11.3 Absolute Nucleated RBC 0.000 Nucleated RBC % (auto) 0.0 D-Dimer High Sensitivty 4044 Anion Gap 17 Estim Creat Clear Calc 51.6 Estimated GFR 40 POC Glucose Fasting Glucose 120 H Calcium 8.3 L Lactate Dehydrogenase 494 H C-Reactive Protein 6.36 H 05/06/21 07:41 MCV MCH MCHC RDW Plt Count MPV Absolute Nucleated RBC Nucleated RBC % (auto) D-Dimer High Sensitivty Anion Gap Estim Creat Clear Calc Estimated GFR POC Glucose 133 H Fasting Glucose Calcium Lactate Dehydrogenase C-Reactive Protein Assessment and Plan (1) Acute kidney injury superimposed on CKD: Status: Acute (2) Acute hypoxemic respiratory failure due to COVID-19: Status: Acute Assessment and Plan: hospital d#8 66yo unvaccinated M with DM2, CHF, CKD3, HTN admitted for hypoxia from COVID-19 PNA diagnosed 9d prior to admission acute hypoxic respiratory failure - HFNC, wean as tolerated, encourage awake proning now on max high lfow and non rebreather, saturation 91% COVID-19 pneumonia - dexamethasone d#8/, ID appreciated, trend inflammatory markers changed to moderate dose lovenox CHF with unknown EF - got 1 dose furosemide then given IV fluids then held both once pt appeared euvolemic - TTE pending troponin indeterminate - likely demand ischemia due to infection, no further workup per Cardiology JÚNIOR/CKD3 intially improved to 1.4, now at 1.7, monitor hyperK 5.6 today, will give andother dose of lokelma, monitor DM2 with steroid-inducted hyperglycemia - basal and bolus insulin - A1c 7.7 HLD - continue statin HTN - continue atenolol, hydralazine dispo - continue hospitalization for HFNC Quality Stroke Does the patient have a stroke diagnosis?: No VTE Prior VTE?: No VTE Risk Level:: Medical - moderate - high VTE Device Contraindication: Treatment Not Indicated VTE Drug Contraindication: N/A - Med Ordered
[2021-05-06 11:32] LABS: Glucose, Whole Blood 186 mg/dL (60-115)
[2021-05-06 16:20] LABS: Glucose, Whole Blood 297 mg/dL (60-115)
--- NOTE | 2021-05-06 17:52 | PC.NURSE ---
On High Flow 02 50L at 80% Celestino prone position for 60 min. Sat 92% reported to be in accelerated junctional rhytym Dr Reyes notified. Returned to 1st degree with Mobitz 2. prior to EKG done. Very weak. appetite poor. Denies pain.
[2021-05-06 19:45] LABS: Glucose, Whole Blood 300 mg/dL (60-115)
--- NOTE | 2021-05-06 20:47 | P.PNNP_ITS ---
Subjective Subjective Date of Service: 05/06/21 Interval history: cc: sob Making urine Feels well despite high o2 requirements Physical Exam Vital Signs: Vital Signs: Last Vital Signs Temp 98.0 F 05/06/21 19:15 Pulse 65 05/06/21 19:15 Resp 20 05/06/21 19:50 BP 167/93 H 05/06/21 19:15 Pulse Ox 92 05/06/21 19:15 Oxygen Flow Rate 15 04/28/21 21:37 Body Mass Index 29.4 General: AO X 3, weak appearing Resp:? Crackles bilateral, mild accessory muscles used CVS: S1,S2,RRR GI: soft, non tender, non distended Neuro:? motor grossly intact, alert Psych: appropriate affect, appropriate insight? Objective Data Labs CBC & Chem 7: 05/06/21 05:22 05/06/21 05:22 Labs: Laboratory Results - last 24 hr 05/06/21 05/06/21 05/06/21 05:22 05:22 05:22 WBC 6.1 RBC 5.22 Hgb 14.8 Hct 45.5 MCV 87.2 MCH 28.4 MCHC 32.5 RDW 12.9 Plt Count 271 MPV 11.3 Absolute Nucleated RBC 0.000 Nucleated RBC % (auto) 0.0 D-Dimer High Sensitivty 4044 Sodium 133 L Potassium 5.6 H Chloride 104 Carbon Dioxide 18 L Anion Gap 17 BUN 99 H* Creatinine 1.71 H Estim Creat Clear Calc 51.6 Estimated GFR 40 POC Glucose Fasting Glucose 120 H Calcium 8.3 L Lactate Dehydrogenase 494 H C-Reactive Protein 6.36 H 05/06/21 05/06/21 05/06/21 07:41 11:18 16:14 WBC RBC Hgb Hct MCV MCH MCHC RDW Plt Count MPV Absolute Nucleated RBC Nucleated RBC % (auto) D-Dimer High Sensitivty Sodium Potassium Chloride Carbon Dioxide Anion Gap BUN Creatinine Estim Creat Clear Calc Estimated GFR POC Glucose 133 H 186 H 297 H Fasting Glucose Calcium Lactate Dehydrogenase C-Reactive Protein 05/06/21 19:40 WBC RBC Hgb Hct MCV MCH MCHC RDW Plt Count MPV Absolute Nucleated RBC Nucleated RBC % (auto) D-Dimer High Sensitivty Sodium Potassium Chloride Carbon Dioxide Anion Gap BUN Creatinine Estim Creat Clear Calc Estimated GFR POC Glucose 300 H Fasting Glucose Calcium Lactate Dehydrogenase C-Reactive Protein Microbiology Microbiology Results: Microbiology 04/28/21 22:17 Blood - Venous Blood Culture - Final No growth after 5 days. 04/28/21 22:17 Blood - Venous Blood Culture - Final No growth after 5 days. Procedures Date of Service Date of Service: 05/06/21 Assessment & Plan Assessment and plan (1) JÚNIOR (acute kidney injury): Status: Acute (2) Acute kidney injury superimposed on CKD: Status: Acute (3) Acute hypoxemic respiratory failure due to COVID-19: Status: Acute Assessment and Plan: 1. JÚNIOR 2. hypoxia from COVID-19 PNA 3. CKD 3 4. Hyperkalemia O2 COVID Rx as per medical team K is high - Rx with Lokelma Increase Hydrazine as needed May need gentle hydration Thx Dr. Louis Time Spent With Patient Time: Total time spent is greater than 50% in coordination of care (as docu mented) at patient's floor/unit and/or counseling patient: Progress Note: Quality Stroke Does the patient have a stroke diagnosis?: No
[2021-05-06] MEDS: Insulin Glargine,Hum.rec.anlog 100 UNIT/ML 10 ML VIAL 24 UNIT SUBCUT (20:56)
[2021-05-06] MEDS: Atorvastatin Calcium 20 MG TABLET PO (20:58)
[2021-05-07] VITALS (15 sets, daily range): BP systolic 132–155; BP diastolic 75–81; PULSE 50–78; RESP 20–26; TEMP 35.9–37.6; O2SAT 90–95; BMI 29.7
--- NOTE | 2021-05-07 02:33 | PC.NURSE ---
Pt noted to be desatting to low 70s while on HFNC 50L 90%. Pt stated he felt SOB when moved slightly. Placed NRB over HFNC, respiratory at bedside, increased HF to 50L 100%. Pt now satting 93%. Will continue to monitor.
[2021-05-07 07:00] LABS: Hematocrit 49.2 % (42.0-52.0); Hemoglobin 15.6 g/dl (14.0-18.0); Mean Corpuscular HGB Conc 31.7 g/dl (31.0-36.0); Mean Corpuscular Hemoglobin 28.1 pg (27.0-33.0); Mean Corpuscular Volume 88.5 fL (80.0-98.0); Mean Platelet Volume 12.2 fL (9.4-12.4); Platelet Count 257 X10*3/uL (160-400); Red Blood Count 5.56 X10*6/uL (4.60-5.80); Red Cell Distribution Width 12.9 % (11.0-16.0); White Blood Count 8.6 X10*3/uL (4.8-10.8)
[2021-05-07 07:41] LABS: Anion Gap 17 (12-20); Blood Urea Nitrogen 112 mg/dL (9-16); Calcium 8.7 mg/dL (8.4-10.2); Carbon Dioxide 20 mmol/L (22-29); Chloride 105 mmol/L (96-108); Estimated Glomerular Filt Rate 39; Glucose Fasting 119 mg/dL (60-99); Potassium 5.7 mmol/L (3.3-5.1); Sodium 136 mmol/L (135-145)
[2021-05-07 08:27] LABS: Glucose, Whole Blood 104 mg/dL (60-115)
[2021-05-07] MEDS: hydrALAZINE HCl 50 MG TABLET PO ×3 (09:30→21:36)
[2021-05-07] MEDS: dexAMETHasone sod phosphate 4 MG/ML VIAL 6 MG IVPUSH (09:31)
[2021-05-07] MEDS: Enoxaparin Sodium 40 MG/0.4 ML SYRINGE SUBCUT ×2 (09:31→21:37)
[2021-05-07] MEDS: atenoloL 25 MG TABLET PO (09:31)
[2021-05-07] MEDS: Aspirin 81 MG TAB.CHEW PO (09:31)
[2021-05-07] MEDS: 0.9 % Sodium Chloride Flush 3 ML SYRINGE IVFLUSH ×3 (09:32→21:39)
--- NOTE | 2021-05-07 09:40 | HO.PM.IMPN ---
Subjective Subjective Date of Service: 05/07/21 Interval History: ?cc: sob interval history: feels well despite high o2 requirements Cardiovascular Cardiovascular: Reports no additional cardiovascular complaints Gastrointestinal Gastrointestinal: Reports no additional gastrointestinal complaints Physical Exam Vital Signs: Vital Signs: Last Vital Signs Temp 99.1 F 05/07/21 08:00 Pulse 69 05/07/21 08:00 Resp 26 H 05/07/21 08:42 BP 155/81 H 05/07/21 08:00 Pulse Ox 92 05/07/21 08:00 Oxygen Flow Rate 15 04/28/21 21:37 Body Mass Index 29.7 General: AO X 3, weak appearing Resp:? Crackles bilateral, mild accessory muscles used CVS: S1,S2,RRR GI: soft, non tender, non distended Neuro:? motor grossly intact, alert Psych: appropriate affect, appropriate insight? Objective Data Active Medications Acetaminophen (Acetaminophen 325 Mg Tablet) 650 mg PO Q6H PRN PRN Reason: Pain, Mild (Pain Scale 1-3) Aspirin (Aspirin 81 Mg Tab.Chew) 81 mg PO DAILY [facility] Last Admin: 05/07/21 09:31 Dose: 81 mg Documented by: JOSE RAFAEL Atenolol (Atenolol 25 Mg Tablet) 25 mg PO DAILY [facility]; Protocol Last Admin: 05/07/21 09:31 Dose: 25 mg Documented by: JOSE RAFAEL Atorvastatin Calcium (Atorvastatin Calcium 20 Mg Tablet) 20 mg PO BEDTIME [facility] Last Admin: 05/06/21 20:58 Dose: 20 mg Documented by: KEZIA Dexamethasone Sodium Phosphate (Dexamethasone Sod Phosphate 4 Mg/Ml Vial) 6 mg IVPUSH DAILY [facility] Last Admin: 05/07/21 09:31 Dose: 6 mg Documented by: JOSE RAFAEL Dextrose (Dextrose 50 % 25 Gm/50 Ml Vial) 25 gm IVPUSH Q15M PRN; Protocol PRN Reason: per Hypoglycemia Standing Ord. Docusate Sodium (Docusate Sodium 100 Mg Capsule) 100 mg PO DAILY PRN PRN Reason: Constipation Enoxaparin Sodium (Enoxaparin Sodium 40 Mg/0.4 Ml Syringe) 40 mg SUBCUT Q12H [facility] Last Admin: 05/07/21 09:31 Dose: 40 mg Documented by: JOSE RAFAEL Glucose (Glucose Gel 15 Gm Gel..Gram.) 15 gm PO Q15M PRN; Protocol PRN Reason: per Hypoglycemia Standing Ord. Hydralazine HCl (Hydralazine Hcl 50 Mg Tablet) 50 mg PO TID [facility]; Protocol Last Admin: 05/07/21 09:30 Dose: 50 mg Documented by: JOSE RAFAEL Insulin Glargine (Insulin Glargine,Hum.Rec.Anlog 100 Unit/Ml 10 Ml Vial) 24 unit SUBCUT BEDTIME [facility] Last Admin: 05/06/21 20:56 Dose: 24 unit Documented by: KEZIA Insulin Human Lispro (Insulin Lispro 100 Unit/Ml 3 Ml Vial) 0 unit SUBCUT QIDACHS [facility]; Protocol Last Admin: 05/07/21 08:59 Dose: Not Given Documented by: DAVID Non-Admin Reason: No Insulin Coverage Ondansetron HCl (Ondansetron Hcl 4 Mg/2 Ml Vial) 4 mg IVPUSH Q8H PRN PRN Reason: Nausea and Vomiting Pharmacy Consult (Consult Rx Perform Med Rec) 1 each MISCELLANE ONCE PRN PRN Reason: Consult order Sodium Chloride (0.9 % Sodium Chloride Flush 3 Ml Syringe) 3 ml IVFLUSH QSHIFT [facility] Last Admin: 05/07/21 09:32 Dose: 3 ml Documented by: JOSE RAFAEL Sodium Zirconium Cyclosilicate (Sodium Zirconium Cyclosilicate 10 Gm Powd.Pack) 10 gm PO ONCE ONE Stop: 05/07/21 09:40 Labs CBC & Chem 7: 05/07/21 06:48 05/07/21 06:48 Labs: Laboratory Results - last 24 hr 04/28/21 04/30/21 05/01/21 22:17 05:17 06:57 MCV MCH MCHC RDW Plt Count MPV Absolute Nucleated RBC Nucleated RBC % (auto) Potassium 5.2 H 5.2 H 5.6 H Anion Gap Estim Creat Clear Calc Estimated GFR POC Glucose Fasting Glucose Calcium 05/02/21 05/03/21 05/04/21 06:33 06:17 06:53 MCV MCH MCHC RDW Plt Count MPV Absolute Nucleated RBC Nucleated RBC % (auto) Potassium 5.4 H 5.0 5.3 H Anion Gap Estim Creat Clear Calc Estimated GFR POC Glucose Fasting Glucose Calcium 05/05/21 05/06/21 05/06/21 06:26 05:22 11:18 MCV MCH MCHC RDW Plt Count MPV Absolute Nucleated RBC Nucleated RBC % (auto) Potassium 5.7 H 5.6 H Anion Gap Estim Creat Clear Calc Estimated GFR POC Glucose 186 H Fasting Glucose Calcium 05/06/21 05/06/21 05/07/21 16:14 19:40 06:48 MCV 88.5 MCH 28.1 MCHC 31.7 RDW 12.9 Plt Count 257 MPV 12.2 Absolute Nucleated RBC 0.000 Nucleated RBC % (auto) 0.0 Potassium Anion Gap Estim Creat Clear Calc Estimated GFR POC Glucose 297 H 300 H Fasting Glucose Calcium 05/07/21 05/07/21 06:48 08:00 MCV MCH MCHC RDW Plt Count MPV Absolute Nucleated RBC Nucleated RBC % (auto) Potassium 5.7 H Anion Gap 17 Estim Creat Clear Calc 51.0 Estimated GFR 39 POC Glucose 104 Fasting Glucose 119 H Calcium 8.7 Assessment and Plan (1) Acute kidney injury superimposed on CKD: Status: Acute (2) Acute hypoxemic respiratory failure due to COVID-19: Status: Acute Assessment and Plan: hospital d#9 66yo unvaccinated M with DM2, CHF, CKD3, HTN admitted for hypoxia from COVID-19 PNA diagnosed 9d prior to admission acute hypoxic respiratory failure - HFNC, wean as tolerated, encourage awake proning now on max high lfow and non rebreather, and prone, saturation 90% COVID-19 pneumonia - dexamethasone d#9/, ID appreciated, trend inflammatory markers changed to moderate dose lovenox CHF with unknown EF - got 1 dose furosemide then given IV fluids then held both once pt appeared euvolemic - TTE pending troponin indeterminate - likely demand ischemia due to infection, no further workup per Cardiology JÚNIOR/CKD3 intially improved to 1.4, now at 1.7, monitor hyperK 5.7 today, will give another dose of lokelma, monitor DM2 with steroid-inducted hyperglycemia - basal and bolus insulin - A1c 7.7 HLD - continue statin HTN - continue atenolol, hydralazine dispo - continue hospitalization for HFNC Quality Stroke Does the patient have a stroke diagnosis?: No VTE Prior VTE?: No VTE Risk Level:: Medical - moderate - high VTE Device Contraindication: Treatment Not Indicated VTE Drug Contraindication: N/A - Med Ordered
[2021-05-07] MEDS: Sodium Zirconium Cyclosilicate 10 GM POWD.PACK PO (10:33)
[2021-05-07 11:52] LABS: Glucose, Whole Blood 126 mg/dL (60-115)
[2021-05-07 16:39] LABS: Glucose, Whole Blood 217 mg/dL (60-115)
[2021-05-07] MEDS: Insulin Lispro 100 UNIT/ML 3 ML VIAL SUBCUT ×2 (17:12→21:38)
[2021-05-07 20:37] LABS: Glucose, Whole Blood 245 mg/dL (60-115)
[2021-05-07] MEDS: Atorvastatin Calcium 20 MG TABLET PO (21:37)
[2021-05-07] MEDS: Insulin Glargine,Hum.rec.anlog 100 UNIT/ML 10 ML VIAL 24 UNIT SUBCUT (21:37)
[2021-05-08] VITALS (17 sets, daily range): BP systolic 126–145; BP diastolic 68–91; PULSE 40–83; RESP 16–20; TEMP 36.1–37.2; O2SAT 90–96; BMI 29.2
--- NOTE | 2021-05-08 | ECG_ITS ---
Test Reason : bradycardia Blood Pressure : / mmHG Vent. Rate : 077 BPM Atrial Rate : 076 BPM P-R Int : 000 ms QRS Dur : 080 ms QT Int : 414 ms P-R-T Axes : 000 -27 064 degrees QTc Int : 468 ms Normal sinus rhythm with 1st degree A-V block with occasional Premature ventricular complexes Moderate voltage criteria for LVH, may be normal variant T wave abnormality, consider lateral ischemia Abnormal ECG Premature ventricular complexes are new Referred By: Maninder Prather Electronically Signed By:SHEILA MATOS MD
--- NOTE | 2021-05-08 01:23 | PC.NURSE ---
Addendum entered by Yvonne Morgan RN 05/08/21 01:51: heart rhythm mostly first degree av block, occas wienkebach, occas junctional, Dr. Prather aware. will continue to monitor Original Note: at approx 0105 pt on monitor sustaining hr 39 with sleep. on nsg check pt sleeping, this RN awakened pt & pt denied dizziness, lightheadedness or chest pain. once awake, pt hr increased to 52. repeat bp 146/87. increased HOB to 40 degrees. Pt reports this position is comfortable. Pacer pads at the bedside. Dr. Prather notified.
--- NOTE | 2021-05-08 01:54 | PC.NURSE ---
hr 60's at this tome
[2021-05-08] MEDS: Morphine Sulfate 2 MG/ML CARTRIDGE 1 MG IVPUSH (04:15)
--- NOTE | 2021-05-08 04:34 | PC.NURSE ---
0350 hr dipped to 32 with sleep, with sleep awakened & asymptomatic - no sleep apnea noted. hr back up to 50's-60's while awake. Dr. Prather updated & no new orders. sats88% on high flow 50L & 100% NRB 0410 sats ranging 84-87% pt short of breath restless call to Dr. Prather, Morphine 1mg iv given @ 0415 & pt repositioned to far right lateral position. Pt. states, I feel better , hr 70's with extreme 1st degree av block to wienkebach . will continue to monitor closely.
--- NOTE | 2021-05-08 05:28 | PM.EVENT ---
Event Note Date of Service: 05/08/21 Event Note: bradycardia: Patient heart rate intermittently dropping to 30s. Patient had couple of episodes of pauses up to 5-6 seconds. Patient asymptomatic. Notified Cardiology. Dating to follow-up with Cardiology for further recommendations. Upon waking of patient's heart rate improved to 60s. Hypoxia: Patient on high-flow/non-rebreather. Saturating up to 88-90%. Intermittently dropping below 88%. Given a dose of morphine. Not in respiratory distress. Continue to monitor.
[2021-05-08 06:08] LABS: Hematocrit 50.4 % (42.0-52.0); Hemoglobin 15.3 g/dl (14.0-18.0); Mean Corpuscular HGB Conc 30.4 g/dl (31.0-36.0); Mean Corpuscular Hemoglobin 29.8 pg (27.0-33.0); Mean Corpuscular Volume 98.1 fL (80.0-98.0); Mean Platelet Volume 10.9 fL (9.4-12.4); Platelet Count 207 X10*3/uL (160-400); Red Blood Count 5.14 X10*6/uL (4.60-5.80); Red Cell Distribution Width 13.6 % (11.0-16.0); White Blood Count 13.1 X10*3/uL (4.8-10.8)
[2021-05-08 06:19] LABS: D Dimer High Sensitivity 3906 NG/ML
[2021-05-08 07:56] LABS: Glucose, Whole Blood 81 mg/dL (60-115)
[2021-05-08 08:56] LABS: Anion Gap 16 (12-20); Blood Urea Nitrogen 115 mg/dL (9-16); C Reactive Protein 5.42 mg/dL (< or = 0.50); Calcium 8.6 mg/dL (8.4-10.2); Carbon Dioxide 20 mmol/L (22-29); Chloride 107 mmol/L (96-108); Creatinine Clr Calc Pharmacy 53.4; Estimated Glomerular Filt Rate 42; Glucose Fasting 74 mg/dL (60-99); Lactate Dehydrogenase 432 U/L (118-273); Potassium 5.4 mmol/L (3.3-5.1); Sodium 138 mmol/L (135-145)
[2021-05-08] MEDS: dexAMETHasone sod phosphate 4 MG/ML VIAL 6 MG IVPUSH (09:30)
[2021-05-08] MEDS: 0.9 % Sodium Chloride Flush 3 ML SYRINGE IVFLUSH ×3 (09:30→21:22)
[2021-05-08] MEDS: Enoxaparin Sodium 40 MG/0.4 ML SYRINGE SUBCUT ×2 (09:30→21:20)
[2021-05-08] MEDS: Aspirin 81 MG TAB.CHEW PO (09:31)
[2021-05-08] MEDS: atenoloL 25 MG TABLET PO (09:31)
[2021-05-08] MEDS: hydrALAZINE HCl 50 MG TABLET PO ×3 (09:31→21:20)
--- NOTE | 2021-05-08 10:20 | CA_ITS ---
Transthoracic Echocardiogram Patient (Last, First, Middle): Vane Roberson, Gender: Male Date of : 1955 Age: 66 Procedure Date: 05/08/2021 Procedure Type: Transthoracic Echocardiogram Location: [facility] [place] Height: 182.88 cm Weight: 97.98 kg BSA: 2.20 m2 Heart Rate: bpm BP: 162 / 79 mmHg Financial Reporting Director: Referring MD: Kina Arredondo MD Symptoms: chf ECG Rhythm: Undetermined Conclusions: - The left ventricular systolic function is normal. The calculated ejection fraction is 59% by biplane method. - Aortic valve not well visualized; possible bicuspid morphology but no significant stenosis or regurgitation. - Mild pulmonary hypertension is present. Findings Left Ventricle Normal left ventricular cavity size. The left ventricular systolic function is normal. The calculated ejection fraction is 59% by biplane method. There is no evidence of regional wall motion abnormalities. Diastolic function is indeterminate on the basis of available data. There is mild septal and mild basal asymmetric hypertrophy. Right Ventricle Normal right ventricular cavity size and systolic function. Atria The left atrium is mildly dilated. The right atrium is normal in size. Aortic Valve The aortic valve was not well visualized. There is no aortic valve stenosis. The peak aortic velocity is 2.39 m/s with a calculated peak gradient of 23 mmHg. The mean gradient is 14 mmHg. The aortic valve area is 2.47 cm2. There is no aortic valve regurgitation. Possible bicuspid. Dimensionless index 0.61. LVOT diameter 2.3cm. Mitral Valve There is mild anterior mitral leaflet thickening. There is trace mitral valve regurgitation. There is no mitral valve stenosis. Pulmonic Valve The pulmonic valve was not well visualized. Tricuspid Valve There is mild tricuspid valve regurgitation. The right ventricular systolic pressure is 43 mmHg. Mild pulmonary hypertension is present. Great Vessels The asc aorta is normal in size. Venous The inferior vena cava was not well visualized. The inferior vena cava is normal in size. Pericardium/Pleural There is no evidence of pericardial effusion. Prior Study Comparison Changes noted compared to prior study dated: 07/26/2017. See comments on aortic valve, pulmonary hypertension. Measurements 2D Linear Measurements IVSd: 1.48 0.6-0.9/0.6-1.0 cm LVIDd: 3.67 3.9-5.3/4.2-5.9 cm LVIDd Index: 1.67 2.4-3.2/2.2-3.1 cm/m2 LVIDs: 2.53 2.0-3.6 cm LVPWd: 1.48 0.7-1.1 cm Ao Root: 3.60 2.1-3.5 cm LA Diam: 4.60 2.7-3.8/3.0-4.0 cm LAIDs Index: 2.09 1.5-2.3 cm/m2 LV Mass: 251.68 67-162/88-224 g LV Mass Index: 114.40 43-95/49-115 g/m2 LVOT Diam: 2.30 3.0+(-)1.3 cm 2D Systolic Function EF 4C: 54.90 >55% EF 2C: 56.00 >55% EF BiP: 58.90 >55% Mitral Valve MV Pk E: 1.24 MV Decel Time: 152.00 E'Lateral: 21.80 E'Medial: 12.50 E/E' Med: 9.90 E/E' Lat: 5.70 PHT: 45.00 MVA PHT: 4.89 Decel [place]: 8.15 Aortic Valve AoV Pk Aleksandr: 2.39 AoV Mn Aleksandr: 1.72 AoV VTI: 0.46 AoV Pk Grad: 23.00 Aov Mn Grad: 14.00 ZENON Cont.VTI: 2.47 LVOT LVOT Pk Aleksandr: 1.39 LVOT Mn Aleksandr: 0.95 LVOT VTI: 0.28 LVOT Pk Grad: 8.00 LVOT Mn Grad: 4.00 LVOT Diam: 2.30 LVOT Area: 4.15 Diastolic Function MV Pk E: 1.24 E'Medial: 12.50 E/E' Med: 9.90 E' Laterial: 21.80 E/E' Lat: 5.70 Right Ventricle TAPSE (mm): 17.00 TVS' Aleksandr: 10.00 Tricuspid Valve TR Pk Aleksandr: 2.99 TR Pk Grad: 36.00 RVSP: 43.00 Great Vessels Aorta Ao Root-2D: 3.60 2.0-3.7 cm Ao Asc: 3.30 2.1-3.4 cm Pulmonary Valve PV Pk Aleksandr: 1.07 Peak PV Grad: 5.00 Updated in Other Vendor System with Status of Final Prince Mic MD electronically signed on 05/08/2021 12:07:08 PM with status of Final
--- NOTE | 2021-05-08 11:02 | PM.PNNEP ---
Subjective Subjective Date of Service: 05/08/21 Principal diagnosis: COVID, JÚNIOR, CKD Interval history: Cont to c/o SOB Physical Exam Vital Signs: Vital Signs: Last Vital Signs Temp 98.0 F 05/08/21 07:37 Pulse 78 05/08/21 09:31 Resp 18 05/08/21 07:52 BP 134/88 05/08/21 09:31 Pulse Ox 93 05/08/21 07:37 Oxygen Flow Rate 15 04/28/21 21:37 Body Mass Index 29.2 Const: General: cooperative and no acute distress Orientation/consciousness: patient oriented x3 Eyes: General: appearance normal, both eyes and all related structures Pupils: Equal, round and reactive pupils present Resp: Effort & Inspection: normal respiratory effort Cardio: Rate: regular rate Rhythm: regular rhythm GI: Palpation (GI): Soft to palpation Auscultation: normal bowel sounds Skin: General skin exam: no rashes or lesions noted Neuro: General: patient oriented x3 Cranial nerves: Yes Equal, round and reactive pupils present Cognition (Neuro): normal cognition Extrem: General: Yes normal to inspection Objective Data Labs CBC & Chem 7: 05/08/21 05:52 05/08/21 08:00 Labs: Laboratory Results - last 24 hr 05/07/21 05/07/21 05/07/21 11:38 16:26 20:26 WBC RBC Hgb Hct MCV MCH MCHC RDW Plt Count MPV Absolute Nucleated RBC Nucleated RBC % (auto) D-Dimer High Sensitivty Sodium Potassium Chloride Carbon Dioxide Anion Gap BUN Creatinine Estim Creat Clear Calc Estimated GFR POC Glucose 126 H 217 H 245 H Fasting Glucose Calcium Lactate Dehydrogenase C-Reactive Protein 05/08/21 05/08/21 05/08/21 05:52 05:52 07:37 WBC 13.1 H RBC 5.14 Hgb 15.3 Hct 50.4 MCV 98.1 H D MCH 29.8 MCHC 30.4 L RDW 13.6 Plt Count 207 MPV 10.9 Absolute Nucleated RBC 0.000 Nucleated RBC % (auto) 0.0 D-Dimer High Sensitivty 3906 Sodium Potassium Chloride Carbon Dioxide Anion Gap BUN Creatinine Estim Creat Clear Calc Estimated GFR POC Glucose 81 Fasting Glucose Calcium Lactate Dehydrogenase C-Reactive Protein 05/08/21 08:00 WBC RBC Hgb Hct MCV MCH MCHC RDW Plt Count MPV Absolute Nucleated RBC Nucleated RBC % (auto) D-Dimer High Sensitivty Sodium 138 Potassium 5.4 H Chloride 107 Carbon Dioxide 20 L Anion Gap 16 BUN 115 H* Creatinine 1.65 H Estim Creat Clear Calc 53.4 Estimated GFR 42 POC Glucose Fasting Glucose 74 D Calcium 8.6 Lactate Dehydrogenase 432 H C-Reactive Protein 5.42 H Microbiology Microbiology Results: Microbiology 04/28/21 22:17 Blood - Venous Blood Culture - Final No growth after 5 days. 04/28/21 22:17 Blood - Venous Blood Culture - Final No growth after 5 days. Procedures Date of Service Date of Service: 05/08/21 Assessment & Plan Assessment and plan (1) JÚNIOR (acute kidney injury): Status: Acute (2) Acute kidney injury superimposed on CKD: Status: Acute (3) Acute hypoxemic respiratory failure due to COVID-19: Status: Acute Assessment and Plan: 1. JÚNIOR: decr SCr 2. hypoxia from COVID-19 PNA 3. CKD 3: c/w DN/HTN renal dis--sees Dr Feldman 4. Hyperkalemia 5. High Bun/Cr: d/t steroids 6. HyperK REC: cont to keep adequately hydrated; momnitor UOP/renal func; Lokelma for hyperK; avoid NToxins Time Spent With Patient Time: Total time spent is greater than 50% in coordination of care (as documented) at patient's floor/unit and/or counseling patient: Progress Note: Quality Stroke Does the patient have a stroke diagnosis?: No
--- NOTE | 2021-05-08 11:17 | P.PNIM_ITS ---
Subjective Subjective Date of Service: 05/08/21 Interval History: ?cc: sob interval history: feels well despite high o2 requirements Cardiovascular Cardiovascular: Reports no additional cardiovascular complaints Respiratory Respiratory: Reports no additional respiratory complaints Physical Exam Vital Signs: Vital Signs: Last Vital Signs Temp 98.1 F 05/08/21 11:13 Pulse 83 05/08/21 11:13 Resp 19 05/08/21 11:13 BP 126/71 05/08/21 11:13 Pulse Ox 90 L 05/08/21 11:13 Oxygen Flow Rate 15 04/28/21 21:37 Body Mass Index 29.2 General: AO X 3, weak appearing Resp:? Crackles bilateral, mild accessory muscles used CVS: S1,S2,RRR GI: soft, non tender, non distended Neuro:? motor grossly intact, alert Psych: appropriate affect, appropriate insight? Objective Data Active Medications Acetaminophen (Acetaminophen 325 Mg Tablet) 650 mg PO Q6H PRN PRN Reason: Pain, Mild (Pain Scale 1-3) Aspirin (Aspirin 81 Mg Tab.Chew) 81 mg PO DAILY [facility] Last Admin: 05/08/21 09:31 Dose: 81 mg Documented by: KAYLIE Atenolol (Atenolol 25 Mg Tablet) 25 mg PO DAILY [facility]; Protocol Last Admin: 05/08/21 09:31 Dose: 25 mg Documented by: KAYLIE Atorvastatin Calcium (Atorvastatin Calcium 20 Mg Tablet) 20 mg PO BEDTIME [facility] Last Admin: 05/07/21 21:37 Dose: 20 mg Documented by: DAMARIS Dexamethasone Sodium Phosphate (Dexamethasone Sod Phosphate 4 Mg/Ml Vial) 6 mg IVPUSH DAILY [facility] Last Admin: 05/08/21 09:30 Dose: 6 mg Documented by: KAYLIE Dextrose (Dextrose 50 % 25 Gm/50 Ml Vial) 25 gm IVPUSH Q15M PRN; Protocol PRN Reason: per Hypoglycemia Standing Ord. Docusate Sodium (Docusate Sodium 100 Mg Capsule) 100 mg PO DAILY PRN PRN Reason: Constipation Enoxaparin Sodium (Enoxaparin Sodium 40 Mg/0.4 Ml Syringe) 40 mg SUBCUT Q12H [facility] Last Admin: 05/08/21 09:30 Dose: 40 mg Documented by: KAYLIE Glucose (Glucose Gel 15 Gm Gel..Gram.) 15 gm PO Q15M PRN; Protocol PRN Reason: per Hypoglycemia Standing Ord. Hydralazine HCl (Hydralazine Hcl 50 Mg Tablet) 50 mg PO TID [facility]; Protocol Last Admin: 05/08/21 09:31 Dose: 50 mg Documented by: KAYLIE Insulin Glargine (Insulin Glargine,Hum.Rec.Anlog 100 Unit/Ml 10 Ml Vial) 24 unit SUBCUT BEDTIME [facility] Last Admin: 05/07/21 21:37 Dose: 24 unit Documented by: DAMARIS Insulin Human Lispro (Insulin Lispro 100 Unit/Ml 3 Ml Vial) 0 unit SUBCUT QIDACHS [facility]; Protocol Last Admin: 05/08/21 08:06 Dose: Not Given Documented by: KAYLIE Non-Admin Reason: No Insulin Coverage Ondansetron HCl (Ondansetron Hcl 4 Mg/2 Ml Vial) 4 mg IVPUSH Q8H PRN PRN Reason: Nausea and Vomiting Pharmacy Consult (Consult Rx Perform Med Rec) 1 each MISCELLANE ONCE PRN PRN Reason: Consult order Sodium Chloride (0.9 % Sodium Chloride Flush 3 Ml Syringe) 3 ml IVFLUSH QSHIFT [facility] Last Admin: 05/08/21 09:30 Dose: 3 ml Documented by: KAYLIE Labs CBC & Chem 7: 05/08/21 05:52 05/08/21 08:00 Labs: Laboratory Results - last 24 hr 04/28/21 04/30/21 05/01/21 22:17 05:17 06:57 MCV MCH MCHC RDW Plt Count MPV Absolute Nucleated RBC Nucleated RBC % (auto) D-Dimer High Sensitivty Potassium 5.2 H 5.2 H 5.6 H Anion Gap BUN 104 H* 97 H* 99 H* Creatinine 3.29 H 2.24 H 1.90 H Estim Creat Clear Calc Estimated GFR POC Glucose Fasting Glucose Calcium Lactate Dehydrogenase C-Reactive Protein 05/02/21 05/03/21 05/04/21 06:33 06:17 06:53 MCV MCH MCHC RDW Plt Count MPV Absolute Nucleated RBC Nucleated RBC % (auto) D-Dimer High Sensitivty Potassium 5.4 H 5.0 5.3 H Anion Gap BUN 90 H* 81 H* 81 H* Creatinine 1.61 H 1.46 H 1.47 H Estim Creat Clear Calc Estimated GFR POC Glucose Fasting Glucose Calcium Lactate Dehydrogenase C-Reactive Protein 05/05/21 05/06/21 05/07/21 06:26 05:22 06:48 MCV MCH MCHC RDW Plt Count MPV Absolute Nucleated RBC Nucleated RBC % (auto) D-Dimer High Sensitivty Potassium 5.7 H 5.6 H 5.7 H Anion Gap BUN 89 H* 99 H* 112 H* Creatinine 1.54 H 1.71 H 1.74 H Estim Creat Clear Calc Estimated GFR POC Glucose Fasting Glucose Calcium Lactate Dehydrogenase C-Reactive Protein 05/07/21 05/07/21 05/07/21 11:38 16:26 20:26 MCV MCH MCHC RDW Plt Count MPV Absolute Nucleated RBC Nucleated RBC % (auto) D-Dimer High Sensitivty Potassium Anion Gap BUN Creatinine Estim Creat Clear Calc Estimated GFR POC Glucose 126 H 217 H 245 H Fasting Glucose Calcium Lactate Dehydrogenase C-Reactive Protein 05/08/21 05/08/21 05/08/21 05:52 05:52 07:37 MCV 98.1 H D MCH 29.8 MCHC 30.4 L RDW 13.6 Plt Count 207 MPV 10.9 Absolute Nucleated RBC 0.000 Nucleated RBC % (auto) 0.0 D-Dimer High Sensitivty 3906 Potassium Anion Gap BUN Creatinine Estim Creat Clear Calc Estimated GFR POC Glucose 81 Fasting Glucose Calcium Lactate Dehydrogenase C-Reactive Protein 05/08/21 08:00 MCV MCH MCHC RDW Plt Count MPV Absolute Nucleated RBC Nucleated RBC % (auto) D-Dimer High Sensitivty Potassium 5.4 H Anion Gap 16 BUN 115 H* Creatinine 1.65 H Estim Creat Clear Calc 53.4 Estimated GFR 42 POC Glucose Fasting Glucose 74 D Calcium 8.6 Lactate Dehydrogenase 432 H C-Reactive Protein 5.42 H Assessment and Plan (1) Acute kidney injury superimposed on CKD: Status: Acute (2) Acute hypoxemic respiratory failure due to COVID-19: Status: Acute Assessment and Plan: hospital d#10 66yo unvaccinated M with DM2, CHF, CKD3, HTN admitted for hypoxia from COVID-19 PNA diagnosed 9d prior to admission acute hypoxic respiratory failure - HFNC, wean as tolerated, encourage awake proning continues to be on max high lfow and non rebreather, and prone when possible, saturation around 90% COVID-19 pneumonia - dexamethasone d#10, ID appreciated, trend inflammatory markers changed to moderate dose lovenox CHF with unknown EF - got 1 dose furosemide then given IV fluids then held both once pt appeared euvolemic - TTE pending troponin indeterminate - likely demand ischemia due to infection, no further workup per Cardiology JÚNIOR/CKD3 intially improved to 1.4, now at 1.7, monitor hyperK 5.4 today, will give another dose of lokelma, monitor DM2 with steroid-inducted hyperglycemia - basal and bolus insulin - A1c 7.7 HLD - continue statin HTN - continue atenolol, hydralazine dispo - continue hospitalization for HFNC Quality Stroke Does the patient have a stroke diagnosis?: No VTE Prior VTE?: No VTE Risk Level:: Medical - moderate - high VTE Device Contraindication: Treatment Not Indicated VTE Drug Contraindication: N/A - Med Ordered
[2021-05-08 11:20] LABS: Glucose, Whole Blood 87 mg/dL (60-115)
--- NOTE | 2021-05-08 12:24 | MHC.CM.PN ---
Male 66 DX Covid+ No discharge today. Patient continues to require supplemental oxygen @ high flow rate 55. DP home with family assist and transport.
[2021-05-08 16:08] LABS: Glucose, Whole Blood 141 mg/dL (60-115)
[2021-05-08] MEDS: Sodium Zirconium Cyclosilicate 10 GM POWD.PACK PO (17:26)
[2021-05-08] MEDS: Insulin Lispro 100 UNIT/ML 3 ML VIAL SUBCUT ×2 (17:27→21:21)
[2021-05-08 20:05] LABS: Glucose, Whole Blood 205 mg/dL (60-115)
[2021-05-08] MEDS: Atorvastatin Calcium 20 MG TABLET PO (21:20)
[2021-05-08] MEDS: Insulin Glargine,Hum.rec.anlog 100 UNIT/ML 10 ML VIAL 24 UNIT SUBCUT (21:21)
[2021-05-09] VITALS (16 sets, daily range): BP systolic 103–164; BP diastolic 43–86; PULSE 55–86; RESP 17–37; TEMP 35.9–37.1; O2SAT 88–96
--- NOTE | 2021-05-09 05:43 | PC.NURSE ---
05/09/2021 @ 0530 Pt had a 6.83 pause . notified
--- NOTE | 2021-05-09 06:06 | PM.EVENT ---
Event Note Date of Service: 05/09/21 Event Note: patient had a 6 second pause, according to the nurse patient has also been bradycardic with heart rate dipping to the 30s and 40s transiently with no symptoms. Patient on atenolol, discontinued, cardiology reconsulted
[2021-05-09 06:51] LABS: Hematocrit 43.4 % (42.0-52.0); Hemoglobin 14.3 g/dl (14.0-18.0); Mean Corpuscular HGB Conc 32.9 g/dl (31.0-36.0); Mean Corpuscular Hemoglobin 28.8 pg (27.0-33.0); Mean Corpuscular Volume 87.5 fL (80.0-98.0); Mean Platelet Volume 11.2 fL (9.4-12.4); Platelet Count 250 X10*3/uL (160-400); Red Blood Count 4.96 X10*6/uL (4.60-5.80); Red Cell Distribution Width 13.1 % (11.0-16.0); White Blood Count 11.8 X10*3/uL (4.8-10.8)
[2021-05-09 07:28] LABS: Anion Gap 14 (12-20); Blood Urea Nitrogen 119 mg/dL (9-16); Calcium 8.5 mg/dL (8.4-10.2); Carbon Dioxide 20 mmol/L (22-29); Chloride 105 mmol/L (96-108); Creatinine Clr Calc Pharmacy 51.2; Estimated Glomerular Filt Rate 40; Glucose Fasting 69 mg/dL (60-99); Potassium 5.2 mmol/L (3.3-5.1); Sodium 134 mmol/L (135-145)
[2021-05-09 07:52] LABS: Glucose, Whole Blood 66 mg/dL (60-115)
[2021-05-09] MEDS: Aspirin 81 MG TAB.CHEW PO (08:37)
[2021-05-09] MEDS: hydrALAZINE HCl 50 MG TABLET PO ×2 (08:37→14:41)
[2021-05-09] MEDS: dexAMETHasone sod phosphate 4 MG/ML VIAL 6 MG IVPUSH (08:37)
[2021-05-09] MEDS: Enoxaparin Sodium 40 MG/0.4 ML SYRINGE SUBCUT ×2 (08:38→20:07)
[2021-05-09] MEDS: 0.9 % Sodium Chloride Flush 3 ML SYRINGE IVFLUSH ×3 (08:38→20:08)
--- NOTE | 2021-05-09 09:20 | HO.PM.IMPN ---
Subjective Subjective Date of Service: 05/09/21 Interval History: ?cc: sob interval history: feels well despite high o2 requirements Cardiovascular Cardiovascular: Reports no additional cardiovascular complaints Gastrointestinal Gastrointestinal: Reports no additional gastrointestinal complaints Physical Exam Vital Signs: Vital Signs: Last Vital Signs Temp 98.1 F 05/09/21 07:19 Pulse 70 05/09/21 07:19 Resp 24 H 05/09/21 08:07 BP 143/66 H 05/09/21 07:19 Pulse Ox 90 L 05/09/21 07:19 Oxygen Flow Rate 15 04/28/21 21:37 Body Mass Index 29.2 General: AO X 3, weak, ill appearing Resp:? Crackles bilateral, mild accessory muscles used CVS: S1,S2,RRR GI: soft, non tender, non distended Neuro:? motor grossly intact, alert Psych: appropriate affect, appropriate insight? Objective Data Active Medications Acetaminophen (Acetaminophen 325 Mg Tablet) 650 mg PO Q6H PRN PRN Reason: Pain, Mild (Pain Scale 1-3) Aspirin (Aspirin 81 Mg Tab.Chew) 81 mg PO DAILY [facility] Last Admin: 05/09/21 08:37 Dose: 81 mg Documented by: VICENTE Atorvastatin Calcium (Atorvastatin Calcium 20 Mg Tablet) 20 mg PO BEDTIME [facility] Last Admin: 05/08/21 21:20 Dose: 20 mg Documented by: SHANNON Dexamethasone Sodium Phosphate (Dexamethasone Sod Phosphate 4 Mg/Ml Vial) 6 mg IVPUSH DAILY [facility] Last Admin: 05/09/21 08:37 Dose: 6 mg Documented by: VICENTE Dextrose (Dextrose 50 % 25 Gm/50 Ml Vial) 25 gm IVPUSH Q15M PRN; Protocol PRN Reason: per Hypoglycemia Standing Ord. Docusate Sodium (Docusate Sodium 100 Mg Capsule) 100 mg PO DAILY PRN PRN Reason: Constipation Enoxaparin Sodium (Enoxaparin Sodium 40 Mg/0.4 Ml Syringe) 40 mg SUBCUT Q12H [facility] Last Admin: 05/09/21 08:38 Dose: 40 mg Documented by: VICENTE Glucose (Glucose Gel 15 Gm Gel..Gram.) 15 gm PO Q15M PRN; Protocol PRN Reason: per Hypoglycemia Standing Ord. Hydralazine HCl (Hydralazine Hcl 50 Mg Tablet) 50 mg PO TID [facility]; Protocol Last Admin: 05/09/21 08:37 Dose: 50 mg Documented by: VICENTE Insulin Glargine (Insulin Glargine,Hum.Rec.Anlog 100 Unit/Ml 10 Ml Vial) 24 unit SUBCUT BEDTIME [facility] Last Admin: 05/08/21 21:21 Dose: 24 unit Documented by: SHANNON Insulin Human Lispro (Insulin Lispro 100 Unit/Ml 3 Ml Vial) 0 unit SUBCUT QIDACHS [facility]; Protocol Last Admin: 05/09/21 08:34 Dose: Not Given Documented by: VICENTE Non-Admin Reason: No Insulin Coverage Ondansetron HCl (Ondansetron Hcl 4 Mg/2 Ml Vial) 4 mg IVPUSH Q8H PRN PRN Reason: Nausea and Vomiting Pharmacy Consult (Consult Rx Perform Med Rec) 1 each MISCELLANE ONCE PRN PRN Reason: Consult order Sodium Chloride (0.9 % Sodium Chloride Flush 3 Ml Syringe) 3 ml IVFLUSH QSHIFT [facility] Last Admin: 05/09/21 08:38 Dose: 3 ml Documented by: VICENTE Labs CBC & Chem 7: 05/09/21 06:19 05/09/21 06:19 Labs: Laboratory Results - last 24 hr 05/08/21 05/08/21 05/08/21 11:15 16:01 20:01 MCV MCH MCHC RDW Plt Count MPV Absolute Nucleated RBC Nucleated RBC % (auto) Anion Gap Estim Creat Clear Calc Estimated GFR POC Glucose 87 141 H 205 H Fasting Glucose Calcium 05/09/21 05/09/21 05/09/21 06:19 06:19 07:46 MCV 87.5 D MCH 28.8 MCHC 32.9 RDW 13.1 Plt Count 250 MPV 11.2 Absolute Nucleated RBC 0.000 Nucleated RBC % (auto) 0.0 Anion Gap 14 Estim Creat Clear Calc 51.2 Estimated GFR 40 POC Glucose 66 Fasting Glucose 69 Calcium 8.5 Assessment and Plan (1) Acute kidney injury superimposed on CKD: Status: Acute (2) Acute hypoxemic respiratory failure due to COVID-19: Status: Acute Assessment and Plan: hospital d#11 66yo unvaccinated M with DM2, CHF, CKD3, HTN admitted for hypoxia from COVID-19 PNA diagnosed 9d prior to admission acute hypoxic respiratory failure - HFNC, wean as tolerated, encourage awake proning continues to be on max high flow and non re-breather, and prone when possible, saturation around 88-91% COVID-19 pneumonia - dexamethasone d#11, ID appreciated, trend inflammatory markers changed to moderate dose lovenox plan to transfer to ICU for possible trial of BIPAP 1st degree AVB, with some 3rd degree overnight with 5-6 second pause dc atenolol cardio follow up CHF with unknown EF - got 1 dose furosemide then given IV fluids then held both once pt appeared euvolemic - TTE - EF 59% mild pulm htn troponin indeterminate - likely demand ischemia due to infection, no further workup per Cardiology JÚNIOR/CKD3 intially improved to 1.4, now at 1.7, monitor hyperK ? RTA IV 5.2 today, will start maintance lokelma at 5mg daily, monitor DM2 with steroid-inducted hyperglycemia - basal and bolus insulin - A1c 7.7 HLD - continue statin HTN - continue atenolol, hydralazine dispo - continue hospitalization for HFNC Quality Stroke Does the patient have a stroke diagnosis?: No VTE Prior VTE?: No VTE Risk Level:: Medical - moderate - high VTE Device Contraindication: Treatment Not Indicated VTE Drug Contraindication: N/A - Med Ordered
[2021-05-09 10:21] LABS: Glucose, Whole Blood 181 mg/dL (60-115)
--- NOTE | 2021-05-09 10:56 | PM.PNCARD ---
Subjective Subjective Date of Service: 05/09/21 Principal diagnosis: COVID, JÚNIOR, CKD Interval history: Asked to see due to pauses on telemetry; patient himself denies any presyncope or other pertinent cardiac symptoms. No angina. Review of Systems Review of Systems Yes all other systems are reviewed and are negative Cardiovascular: Reports as per HPI, Reports no additional cardiovascular complaints, Denies acrocyanosis, Denies cool extremities, Denies painful fingertips, Denies chest pain, Denies chest pain at rest, Denies diaphoresis, Denies syncope, Denies irregular heart rhythm, Denies claudication, Denies leg edema, Denies lightheadedness, Denies palpitations and Reports dyspnea Respiratory: Reports dyspnea Denies syncope Endocrine: Denies palpitations Physical Exam Vital Signs: Last Vital Signs Temp 98.1 F 05/09/21 07:19 Pulse 70 05/09/21 07:19 Resp 24 H 05/09/21 08:07 BP 143/66 H 05/09/21 07:19 Pulse Ox 90 L 05/09/21 07:19 Oxygen Flow Rate 15 04/28/21 21:37 Body Mass Index 29.2 Const General: cooperative and no acute distress [facility] Other: Unremarkable Neck Neck: Yes normal visual inspection Chest Chest palpation & inspection: normal inspection of the chest Resp Auscultation: diminished lung sounds Cardio Jugular venous distension: no JVD Palpation: normal PMI Heart sounds: S1 normal heart sound present, S2 normal heart sound present, no gallops, no murmurs and no rubs GI Palpation (GI): Soft to palpation Back/Spine/Pelvis Other: unremarkable Skin General skin exam: no rashes or lesions noted Neuro Cranial nerves: Yes Other cranial nerve findings present Extrem General: Yes no clubbing, cyanosis or edema Psych Mental Status: other Objective Labs and Meds Result diagrams: 05/09/21 06:19 05/09/21 06:19 Lab results: Laboratory Results - last 24 hr 05/08/21 05/08/21 05/08/21 11:15 16:01 20:01 WBC RBC Hgb Hct MCV MCH MCHC RDW Plt Count MPV Absolute Nucleated RBC Nucleated RBC % (auto) Sodium Potassium Chloride Carbon Dioxide Anion Gap BUN Creatinine Estim Creat Clear Calc Estimated GFR POC Glucose 87 141 H 205 H Fasting Glucose Calcium 05/09/21 05/09/21 05/09/21 06:19 06:19 07:46 WBC 11.8 H RBC 4.96 Hgb 14.3 Hct 43.4 MCV 87.5 D MCH 28.8 MCHC 32.9 RDW 13.1 Plt Count 250 MPV 11.2 Absolute Nucleated RBC 0.000 Nucleated RBC % (auto) 0.0 Sodium 134 L Potassium 5.2 H Chloride 105 Carbon Dioxide 20 L Anion Gap 14 BUN 119 H* Creatinine 1.72 H Estim Creat Clear Calc 51.2 Estimated GFR 40 POC Glucose 66 Fasting Glucose 69 Calcium 8.5 05/09/21 10:17 WBC RBC Hgb Hct MCV MCH MCHC RDW Plt Count MPV Absolute Nucleated RBC Nucleated RBC % (auto) Sodium Potassium Chloride Carbon Dioxide Anion Gap BUN Creatinine Estim Creat Clear Calc Estimated GFR POC Glucose 181 H Fasting Glucose Calcium ECG Interpretation: EKGs and telemetry reviewed. EKG from yesterday shows sinus rhythm but has a markedly prolonged [place] interval. Even in 2018, he had first-degree heart block to almost 344 milliseconds. On telemetry, on both [place] 05/08 and 05/09 in the fitness coach hours between 05:00 and 06:00, there are pauses noted. There is atrial activity noted and hence this is complete heart block. Maximum duration about 6.9 seconds. Overnight, there is also 2-1 block at a rate of 32/Min. Currently in sinus rhythm. Progress Note: A&P Assessment and plan (1) Complete heart block: Status: Acute (2) Acute hypoxemic respiratory failure due to COVID-19: Status: Acute Assessment and Plan: In the echocardiogram, LVEF was 59%. Possible bicuspid aortic valve versus just calcifications. Based on telemetry, intermittent complete heart block primarily in the fitness coach hours. O2 sats around that time was about 89-91% and he is also on 100% non-rebreather mask. He did have slight elevation of troponins that were checked at the time of admission at 78 in 55. EKG from even 3 years ago had first-degree heart block. Hence most likely this is due to pulmonary compromise in the setting of baseline conduction system disease. Suggest if feasible and bed is available, monitor him rather in the ICU. Stop the beta-blockers. No absolute indication for permanent pacemaker immediately as this is primarily induced by hypoxia, but we will need to monitor him closely. Temporary pacemaker may be required. Also discussed with chartered accountant. Fall Risk Details Current Medications: Current Medications Acetaminophen (Acetaminophen 325 Mg Tablet) 650 mg PO Q6H PRN PRN Reason: Pain, Mild (Pain Scale 1-3) Aspirin (Aspirin 81 Mg Tab.Chew) 81 mg PO DAILY [facility] Last Admin: 05/09/21 08:37 Dose: 81 mg Documented by: Atorvastatin Calcium (Atorvastatin Calcium 20 Mg Tablet) 20 mg PO BEDTIME [facility] Last Admin: 05/08/21 21:20 Dose: 20 mg Documented by: Dexamethasone Sodium Phosphate (Dexamethasone Sod Phosphate 4 Mg/Ml Vial) 6 mg IVPUSH DAILY [facility] Last Admin: 05/09/21 08:37 Dose: 6 mg Documented by: Dextrose (Dextrose 50 % 25 Gm/50 Ml Vial) 25 gm IVPUSH Q15M PRN; Protocol PRN Reason: per Hypoglycemia Standing Ord. Docusate Sodium (Docusate Sodium 100 Mg Capsule) 100 mg PO DAILY PRN PRN Reason: Constipation Enoxaparin Sodium (Enoxaparin Sodium 40 Mg/0.4 Ml Syringe) 40 mg SUBCUT Q12H [facility] Last Admin: 05/09/21 08:38 Dose: 40 mg Documented by: Glucose (Glucose Gel 15 Gm Gel..Gram.) 15 gm PO Q15M PRN; Protocol PRN Reason: per Hypoglycemia Standing Ord. Hydralazine HCl (Hydralazine Hcl 50 Mg Tablet) 50 mg PO TID [facility]; Protocol Last Admin: 05/09/21 08:37 Dose: 50 mg Documented by: Insulin Glargine (Insulin Glargine,Hum.Rec.Anlog 100 Unit/Ml 10 Ml Vial) 24 unit SUBCUT BEDTIME [facility] Last Admin: 05/08/21 21:21 Dose: 24 unit Documented by: Insulin Human Lispro (Insulin Lispro 100 Unit/Ml 3 Ml Vial) 0 unit SUBCUT QIDACHS [facility]; Protocol Last Admin: 05/09/21 08:34 Dose: Not Given Documented by: Ondansetron HCl (Ondansetron Hcl 4 Mg/2 Ml Vial) 4 mg IVPUSH Q8H PRN PRN Reason: Nausea and Vomiting Pharmacy Consult (Consult Rx Perform Med Rec) 1 each MISCELLANE ONCE PRN PRN Reason: Consult order Sodium Chloride (0.9 % Sodium Chloride Flush 3 Ml Syringe) 3 ml IVFLUSH QSHIFT [facility] Last Admin: 05/09/21 08:38 Dose: 3 ml Documented by: Sodium Zirconium Cyclosilicate (Sodium Zirconium Cyclosilicate 5 Gm Powd.Pack) 5 gm PO DAILY [facility] Time Spent With Patient Time: Total time spent is greater than 50% in coordination of care (as documented) at patient's floor/unit and/or counseling patient: Time with patient: less than 15 minutes Progress Note: Quality Stroke Does the patient have a stroke diagnosis?: No Procedures Date of Service Date of Service: 05/09/21
--- NOTE | 2021-05-09 11:12 | MHC.CM.PN ---
Male 66 dx Covid+ Patient is tx to ICU for BIPAP.
[2021-05-09 11:26] LABS: Glucose, Whole Blood 181 mg/dL (60-115)
[2021-05-09] MEDS: Insulin Lispro 100 UNIT/ML 3 ML VIAL SUBCUT ×3 (12:17→20:24)
[2021-05-09 15:42] LABS: Glucose, Whole Blood 190 mg/dL (60-115)
--- NOTE | 2021-05-09 18:20 | PC.NURSE ---
patient transferred to ICU room 262 with the plan to use BIPAP , Pt's Nakia was notified about pt's transfer
--- NOTE | 2021-05-09 18:40 | PC.NURSE ---
Patient transferred from [facility] on HFNC 100% plus NRB 100% with O2 sats trending in the upper 80s to low 90s. A&oX3. Patient switch to ICU monitoring. VSS. LS diminished througout. Placed on Bipap 15/10 100%fio2 with a back up rate of 10, O2 sat 90%. With mask change O2 sats dipped down to 70s. 22G to left lower arm on arrival, additional IV access placed 20G in the RLA. Patient oriented to unit. MD at bedside for assessment and echo. Report given to oncoming RN.
--- NOTE | 2021-05-09 18:43 | P.CONCC_ITS ---
History of Present Illness Data of Consult Service Date: 05/09/21 Requesting physician: Nithin Reyes Primary Care Provider: Unknown Physician HPI Reason for consult: Worsening hypoxemia 66-year-old male longstanding severe diabetic with with chronic renal insufficiency who presented with acute hypoxemic respiratory failure due to bilateral COVID-19 pneumonitis and ARDS and is currently on Decadron with worsening hypoxemia despite maximum support with nasal high-flow and non- rebreather brought down to the ICU to be initiated on BiPAP and if that were to fail he skis consented to possible intubation Clearly appeared to be tired and respiratory rate in the mid 40s with at least a moderate degree of accessory muscle use no significant diaphragmatic effort but appears to be tired and I did a bedside echocardiogram because there was a questionable history of ischemic heart disease and found that he had normal left and right ventricular volume and systolic reserve without segmental wall motion abnormality and no primary valve or pericardial disease He was a normal sinus rhythm and we started him on BiPAP and on the BiPAP but over the course of about an hour respiratory rate dropped into the high 20s clearly looked more comfortable and comfortable enough to fall asleep and his o xygen saturations gradually climbed to 95% He also seems to have underlying organic conduction system disease as he appears to have Mobitz type 1 second-degree AV block with periods of 2-1 block and high- grade block with of sometimes 4-1 and heart rate slowing the into the 20s on and on occasion but just for a very brief amount of time and without specific symptom but it appears to be an atropine treatable issue which might require a a dressing with permanent pacing once we get over the COVID infection Review of Systems Review of Systems: Yes all other systems are reviewed and are negative [facility] Past Medical History Medical History (Updated 05/10/21 @ 16:03 by Shraddha Morgan MD) CHF (congestive heart failure) Chronic renal failure Diabetes Hypertension Type 2 diabetes mellitus Surgical History Surgical History (Updated 04/29/21 @ 06:42 by Kina Arredondo MD) No pertinent past surgical history Social History Social History Household Members: Significant Other Housing: House Do you presently have visiting nurse or other home services: No Alcohol intake: unknown Patient Tobacco Use Status: Never used Tobacco e-Cigarette/Vaping Use: Never Used service: No Current occupational status: employed Current occupational exposures/hazards: No Meds Allergies Allergy/AdvReac Type Severity Reaction Status Date / Time No Known Allergies Allergy Verified 03/06/21 10:38 [No Known Allergies*] Active Medications: Current Medications Acetaminophen (Acetaminophen 325 Mg Tablet) 650 mg PO Q6H PRN PRN Reason: Pain, Mild (Pain Scale 1-3) Aspirin (Aspirin 81 Mg Tab.Chew) 81 mg PO DAILY [facility] Last Admin: 05/09/21 08:37 Dose: 81 mg Documented by: Atorvastatin Calcium (Atorvastatin Calcium 20 Mg Tablet) 20 mg PO BEDTIME [facility] Last Admin: 05/08/21 21:20 Dose: 20 mg Documented by: Dexamethasone Sodium Phosphate (Dexamethasone Sod Phosphate 4 Mg/Ml Vial) 6 mg IVPUSH DAILY [facility] Last Admin: 05/09/21 08:37 Dose: 6 mg Documented by: Dextrose (Dextrose 50 % 25 Gm/50 Ml Vial) 25 gm IVPUSH Q15M PRN; Protocol PRN Reason: per Hypoglycemia Standing Ord. Docusate Sodium (Docusate Sodium 100 Mg Capsule) 100 mg PO DAILY PRN PRN Reason: Constipation Enoxaparin Sodium (Enoxaparin Sodium 40 Mg/0.4 Ml Syringe) 40 mg SUBCUT Q12H [facility] Last Admin: 05/09/21 08:38 Dose: 40 mg Documented by: Glucose (Glucose Gel 15 Gm Gel..Gram.) 15 gm PO Q15M PRN; Protocol PRN Reason: per Hypoglycemia Standing Ord. Hydralazine HCl (Hydralazine Hcl 50 Mg Tablet) 50 mg PO TID [facility]; Protocol Last Admin: 05/09/21 14:41 Dose: 50 mg Documented by: Insulin Glargine (Insulin Glargine,Hum.Rec.Anlog 100 Unit/Ml 10 Ml Vial) 24 unit SUBCUT BEDTIME [facility] Last Admin: 05/08/21 21:21 Dose: 24 unit Documented by: Insulin Human Lispro (Insulin Lispro 100 Unit/Ml 3 Ml Vial) 0 unit SUBCUT QIDACHS [facility]; Protocol Last Admin: 05/09/21 16:34 Dose: 5 unit Documented by: Ondansetron HCl (Ondansetron Hcl 4 Mg/2 Ml Vial) 4 mg IVPUSH Q8H PRN PRN Reason: Nausea and Vomiting Pharmacy Consult (Consult Rx Perform Med Rec) 1 each MISCELLANE ONCE PRN PRN Reason: Consult order Sodium Chloride (0.9 % Sodium Chloride Flush 3 Ml Syringe) [facility] Admin: 05/09/21 16:34 Dose: 3 ml Documented by: Sodium Zirconium Cyclosilicate (Sodium Zirconium Cyclosilicate 5 Gm Powd.Pack) 5 gm PO DAILY [facility] Home Medications Medication Instructions Recorded Confirmed Last Taken Type isosorbide mononitrate 60 mg 60 mg PO DAILY 03/06/21 04/28/21 04/27/21 History tablet,extended release 24 hr sodium polystyrene sulfonate 30 g PO 2XW 03/06/21 04/28/21 04/27/21 History furosemide 40 mg tablet 40 mg PO Q2D 04/28/21 04/28/21 04/27/21 History furosemide 40 mg tablet 80 mg PO Q2D 04/28/21 04/28/21 04/26/21 History insulin glargine 100 unit/mL (3 18 unit SUBCUT QPM 04/28/21 04/28/21 04/27/21 History mL) subcutaneous pen (Basaglar KwikPen U-100 Insulin) Physical Exam Vital Signs: Vital Signs: Last Vital Signs Temp 98.7 F 05/09/21 15:26 Pulse 70 05/09/21 18:38 Resp 37 H 05/09/21 18:38 BP 103/43 L 05/09/21 18:38 Pulse Ox 89 L 05/09/21 18:38 Oxygen Flow Rate 15 04/28/21 21:37 Body Mass Index 29.2 Alert and oriented but appearing fatigued Skin without acrocyanosis or livedo and no significant edema No neck vein distension and good bilateral carotid upstrokes in sinus rhythm Abdomen benign Bedside echo defines normal left ventricular systolic reserve Chest with coarse bilateral adventitious sounds Results Labs CBC & Chem 7: 05/10/21 05:47 05/10/21 05:47 Labs: Short CBC 05/09/21 Range/Units 06:19 WBC 11.8 H (4.8-10.8) X10*3/uL Hgb 14.3 (14.0-18.0) g/dl Hct 43.4 (42.0-52.0) % Plt Count 250 (160-400) X10*3/uL BMP 05/09/21 06:19 Sodium 134 L Potassium 5.2 H Chloride 105 Carbon Dioxide 20 L BUN 119 H* Creatinine 1.72 H Calcium 8.5 Microbiology Microbiology Results: Microbiology 04/28/21 22:17 Blood - Venous Blood Culture - Final No growth after 5 days. 04/28/21 22:17 Blood - Venous Blood Culture - Final No growth after 5 days. Assessment and Plan (1) Mobitz (type) I (Wenckebach's) atrioventricular block: Status: Acute (2) JÚNIOR (acute kidney injury): Status: Acute (3) Chronic renal failure: Status: Acute (4) Elevated troponin: Status: Acute (5) Acute kidney injury superimposed on CKD: Status: Acute (6) Acute hypoxemic respiratory failure due to COVID-19: Status: Acute (7) Leg swelling: Status: Acute (8) COVID-19 determined by clinical diagnostic criteria: Status: Acute (9) ARDS (adult respiratory distress syndrome): Status: Acute Will continue with BiPAP support and should he fail he has consented to intubation and at some point in the near future once over the COVID consider permanent pacing for what appears to be sick sinus syndrome
[2021-05-09] MEDS: 0.9 % Sodium Chloride 1,000 ML 75 ML IVCONT (20:07)
[2021-05-09] MEDS: fentaNYL citrate/PF 100 MCG/2 ML VIAL 50 MCG IVPUSH (20:23)
[2021-05-09] MEDS: Insulin Glargine,Hum.rec.anlog 100 UNIT/ML 10 ML VIAL 24 UNIT SUBCUT (20:24)
[2021-05-09 20:37] LABS: Glucose, Whole Blood 277 mg/dL (60-115)
[2021-05-09 21:22] LABS: Glucose, Whole Blood 294 mg/dL (60-115)
[2021-05-10] VITALS (31 sets, daily range): BP systolic 120–156; BP diastolic 56–83; PULSE 43–77; RESP 19–34; TEMP 36.8–37.2; O2SAT 91–97; BMI 28.8
[2021-05-10 05:54] LABS: VBG Base Excess -2.8 mmol/L; VBG HCO3 20 mmol/L (22-26); VBG pCO2 31 mmHg; VBG pH 7.42 (7.32-7.43); VBG pO2 83 mmHg
[2021-05-10 06:10] LABS: Hematocrit 43.6 % (42.0-52.0); Hemoglobin 14.3 g/dl (14.0-18.0); Mean Corpuscular HGB Conc 32.8 g/dl (31.0-36.0); Mean Corpuscular Hemoglobin 28.5 pg (27.0-33.0); Mean Platelet Volume 11.5 fL (9.4-12.4); Platelet Count 243 X10*3/uL (160-400); Red Blood Count 5.01 X10*6/uL (4.60-5.80); Red Cell Distribution Width 12.9 % (11.0-16.0); White Blood Count 14.4 X10*3/uL (4.8-10.8)
[2021-05-10 06:25] LABS: D Dimer High Sensitivity 2599 NG/ML
[2021-05-10 06:42] LABS: Venous Blood Gas Refer to POC result
[2021-05-10 06:43] LABS: Alanine Aminotransferase 17 U/L (0-40); Albumin Level 2.2 g/dL (3.5-5.0); Alkaline Phosphatase 64 U/L (39-117); Anion Gap 16 (12-20); Aspartate Amino Transferase 25 U/L (5-37); Bilirubin Direct 0.4 mg/dL (0.0-0.5); Bilirubin Total 0.6 mg/dL (0.0-1.0); Blood Urea Nitrogen 122 mg/dL (9-16); C Reactive Protein 8.92 mg/dL (< or = 0.50); Calcium 8.4 mg/dL (8.4-10.2); Carbon Dioxide 18 mmol/L (22-29); Chloride 110 mmol/L (96-108); Creatinine Clr Calc Pharmacy 49.5; Estimated Glomerular Filt Rate 38; Glucose Fasting 94 mg/dL (60-99); Lactate Dehydrogenase 480 U/L (118-273); Magnesium 2.5 mg/dL (1.6-2.6); Potassium 5.6 mmol/L (3.3-5.1); Sodium 138 mmol/L (135-145); Total Protein 5.5 g/dL (6.5-8.0)
[2021-05-10 07:19] LABS: Glucose, Whole Blood 87 mg/dL (60-115)
--- NOTE | 2021-05-10 07:45 | P.CDIC_ITS ---
CDI Concurrent Query Documentation Clarification: PHYSICIAN'S DOCUMENTATION REQUEST Date of Query: 05/10/21 0745 Patient Name: Vane Roberson Admit Date: 04/29/21 Dear Doctor, A review of the medical record indicates additional documentation may be needed. Please review below and update the documentation accordingly. Risk Factors/Clinical Indicators/Treatments Progress note 05/09 - CHF - no exacerbation BNP 130 H Home Furosemide 40 mg tab Patient got 1 dose Furosemide in Ed then given IV fluids. TTE - EF 59%, mild pulm htn Please provide further specificity regarding the most likely type and acuity of CHF you are evaluating, treating, or monitoring. Examples include: Type: * Systolic * Diastolic * Combined Systolic/Diastolic * Other ? please specify * Unable to determine Acuity: * Chronic * Acute on chronic * Unable to determine Use of terms such as suspected, likely, concern for, or probable (associated with a specific diagnosis that is being evaluated, monitored, or treated as if it exists) are acceptable and can be coded in the inpatient setting, when documented at the time of discharge. Thank you, Daphney Person [facility], CDIS Extension: [phone] Please use your independent medical judgment in providing your response. THIS QUERY IS PART OF THE PERMANENT MEDICAL RECORD
[2021-05-10] MEDS: 0.9 % Sodium Chloride 1,000 ML 75 ML IVCONT (08:18)
[2021-05-10] MEDS: dexAMETHasone sod phosphate 4 MG/ML VIAL 6 MG IVPUSH (08:18)
[2021-05-10] MEDS: Enoxaparin Sodium 40 MG/0.4 ML SYRINGE SUBCUT ×2 (08:18→19:11)
[2021-05-10] MEDS: Sodium Bicarbonate 8.4% 100 MEQ in Dextrose 5 % 900 ML IV ×2 (09:48→19:11)
[2021-05-10] MEDS: Sodium Zirconium Cyclosilicate 5 GM POWD.PACK PO (10:07)
[2021-05-10] MEDS: Aspirin 81 MG TAB.CHEW PO (10:07)
--- NOTE | 2021-05-10 10:42 | PM.PNNEP ---
Subjective Subjective Date of Service: 05/10/21 Principal diagnosis: COVID, JÚNIOR, CKD Interval history: Seen and exaiend, events noted Case d/w ICU team Physical Exam Vital Signs: Vital Signs: Last Vital Signs Temp 98.6 F 05/10/21 10:00 Pulse 63 05/10/21 10:00 Resp 28 H 05/10/21 10:00 BP 136/83 05/10/21 10:00 Pulse Ox 91 L 05/10/21 10:00 Oxygen Flow Rate 15 04/28/21 21:37 Body Mass Index 28.8 Const: General: cooperative and no acute distress Orientation/consciousness: patient oriented x3 Eyes: General: appearance normal, both eyes and all related structures Pupils: Equal, round and reactive pupils present Resp: Effort & Inspection: normal respiratory effort Cardio: Rate: regular rate Rhythm: regular rhythm GI: Palpation (GI): Soft to palpation Auscultation: normal bowel sounds Skin: General skin exam: no rashes or lesions noted Neuro: General: patient oriented x3 Cranial nerves: Yes Equal, round and reactive pupils present Cognition (Neuro): normal cognition Extrem: General: Yes normal to inspection Objective Data Labs CBC & Chem 7: 05/10/21 05:47 05/10/21 05:47 Labs: Laboratory Results - last 24 hr 05/09/21 05/09/21 05/09/21 11:14 15:30 20:17 WBC RBC Hgb Hct MCV MCH MCHC RDW Plt Count MPV Absolute Nucleated RBC Nucleated RBC % (auto) D-Dimer High Sensitivty VBG pH VBG pCO2 VBG pO2 VBG HCO3 VBG O2 Saturation VBG Base Excess Sodium Potassium Chloride Carbon Dioxide Anion Gap BUN Creatinine Estim Creat Clear Calc Estimated GFR POC Glucose 181 H 190 H 277 H Fasting Glucose Calcium Magnesium Total Bilirubin Direct Bilirubin AST ALT Alkaline Phosphatase Lactate Dehydrogenase C-Reactive Protein Total Protein Albumin 05/09/21 05/10/21 05/10/21 21:17 05:47 05:47 WBC 14.4 H RBC 5.01 Hgb 14.3 Hct 43.6 MCV 87.0 MCH 28.5 MCHC 32.8 RDW 12.9 Plt Count 243 MPV 11.5 Absolute Nucleated RBC 0.000 Nucleated RBC % (auto) 0.0 D-Dimer High Sensitivty 2599 VBG pH VBG pCO2 VBG pO2 VBG HCO3 VBG O2 Saturation VBG Base Excess Sodium Potassium Chloride Carbon Dioxide Anion Gap BUN Creatinine Estim Creat Clear Calc Estimated GFR POC Glucose 294 H Fasting Glucose Calcium Magnesium Total Bilirubin Direct Bilirubin AST ALT Alkaline Phosphatase Lactate Dehydrogenase C-Reactive Protein Total Protein Albumin 05/10/21 05/10/21 05/10/21 05:47 05:47 07:15 WBC RBC Hgb Hct MCV MCH MCHC RDW Plt Count MPV Absolute Nucleated RBC Nucleated RBC % (auto) D-Dimer High Sensitivty VBG pH 7.42 VBG pCO2 31 VBG pO2 83 VBG HCO3 20 L VBG O2 Saturation 95.0 VBG Base Excess -2.8 Sodium 138 Potassium 5.6 H Chloride 110 H Carbon Dioxide 18 L Anion Gap 16 BUN 122 H Creatinine 1.78 H Estim Creat Clear Calc 49.5 Estimated GFR 38 POC Glucose 87 Fasting Glucose 94 D Calcium 8.4 Magnesium 2.5 Total Bilirubin 0.6 Direct Bilirubin 0.4 AST 25 ALT 17 Alkaline Phosphatase 64 Lactate Dehydrogenase 480 H C-Reactive Protein 8.92 H Total Protein 5.5 L Albumin 2.2 L Microbiology Microbiology Results: Microbiology 04/28/21 22:17 Blood - Venous Blood Culture - Final No growth after 5 days. 04/28/21 22:17 Blood - Venous Blood Culture - Final No growth after 5 days. Procedures Date of Service Date of Service: 05/10/21 Assessment & Plan Assessment and plan (1) JÚNIOR (acute kidney injury): Status: Acute (2) Acute kidney injury superimposed on CKD: Status: Acute (3) Acute hypoxemic respiratory failure due to COVID-19: Status: Acute Assessment and Plan: 1. JÚNIOR: decr SCr 2. hypoxia from COVID-19 PNA 3. CKD 3: c/w DN/HTN renal dis--sees Dr Feldman 4. Hyperkalemia 5. High Bun/Cr: d/t steroids and IV vol depletion; no evid of UGIB or excess prot nutrtion which can also cause incr BUN/Cr ratio 6. HyperK: multifat including decr HCO3 REC: cont to keep adequately hydrated and agree w IVF NaHCO3;; momnitor UOP/renal func; Lokelma for hyperK; avoid NToxins Time Spent With Patient Time: Total time spent is greater than 50% in coordination of care (as documented) at patient's floor/unit and/or counseling patient: Progress Note: Quality Stroke Does the patient have a stroke diagnosis?: No
[2021-05-10 11:18] LABS: Glucose, Whole Blood 119 mg/dL (60-115)
[2021-05-10] MEDS: Insulin Lispro 100 UNIT/ML 3 ML VIAL SUBCUT ×3 (11:34→20:25)
--- NOTE | 2021-05-10 14:07 | PM.IDPN ---
Subjective Subjective Date of Service: 05/10/21 Critical Care Time (minutes): 15 Comment: patient on highflow Objective Data Labs CBC & Chem 7: 05/10/21 05:47 05/10/21 05:47 Labs: Laboratory Results - last 24 hr 05/09/21 05/09/21 05/09/21 15:30 20:17 21:17 WBC RBC Hgb Hct MCV MCH MCHC RDW Plt Count MPV Absolute Nucleated RBC Nucleated RBC % (auto) D-Dimer High Sensitivty VBG pH VBG pCO2 VBG pO2 VBG HCO3 VBG O2 Saturation VBG Base Excess Sodium Potassium Chloride Carbon Dioxide Anion Gap BUN Creatinine Estim Creat Clear Calc Estimated GFR POC Glucose 190 H 277 H 294 H Fasting Glucose Calcium Magnesium Total Bilirubin Direct Bilirubin AST ALT Alkaline Phosphatase Lactate Dehydrogenase C-Reactive Protein Total Protein Albumin 05/10/21 05/10/21 05/10/21 05:47 05:47 05:47 WBC 14.4 H RBC 5.01 Hgb 14.3 Hct 43.6 MCV 87.0 MCH 28.5 MCHC 32.8 RDW 12.9 Plt Count 243 MPV 11.5 Absolute Nucleated RBC 0.000 Nucleated RBC % (auto) 0.0 D-Dimer High Sensitivty 2599 VBG pH VBG pCO2 VBG pO2 VBG HCO3 VBG O2 Saturation VBG Base Excess Sodium 138 Potassium 5.6 H Chloride 110 H Carbon Dioxide 18 L Anion Gap 16 BUN 122 H Creatinine 1.78 H Estim Creat Clear Calc 49.5 Estimated GFR 38 POC Glucose Fasting Glucose 94 D Calcium 8.4 Magnesium 2.5 Total Bilirubin 0.6 Direct Bilirubin 0.4 AST 25 ALT 17 Alkaline Phosphatase 64 Lactate Dehydrogenase 480 H C-Reactive Protein 8.92 H Total Protein 5.5 L Albumin 2.2 L 05/10/21 05/10/21 05/10/21 05:47 07:15 11:15 WBC RBC Hgb Hct MCV MCH MCHC RDW Plt Count MPV Absolute Nucleated RBC Nucleated RBC % (auto) D-Dimer High Sensitivty VBG pH 7.42 VBG pCO2 31 VBG pO2 83 VBG HCO3 20 L VBG O2 Saturation 95.0 VBG Base Excess -2.8 Sodium Potassium Chloride Carbon Dioxide Anion Gap BUN Creatinine Estim Creat Clear Calc Estimated GFR POC Glucose 87 119 H Fasting Glucose Calcium Magnesium Total Bilirubin Direct Bilirubin AST ALT Alkaline Phosphatase Lactate Dehydrogenase C-Reactive Protein Total Protein Albumin Microbiology Microbiology Results: Microbiology 04/28/21 22:17 Blood - Venous Blood Culture - Final No growth after 5 days. 04/28/21 22:17 Blood - Venous Blood Culture - Final No growth after 5 days. Physical Exam Vital Signs: Vital Signs: Last Vital Signs Temp 98.4 F 05/10/21 13:00 Pulse 65 05/10/21 13:00 Resp 27 H 05/10/21 13:00 BP 140/65 H 05/10/21 13:00 Pulse Ox 94 05/10/21 13:00 Oxygen Flow Rate 15 04/28/21 21:37 BMI result Body Mass Index 28.8 HENMT: Head: Yes normal to inspection Eyes: General: appearance normal, both eyes and all related structures Resp: Effort & Inspection: labored Cardio: Rate: regular rate Rhythm: regular rhythm GI: Palpation (GI): nontender Extrem: General: Yes normal to inspection Assessment and Plan Assessment and plan (1) Acute hypoxemic respiratory failure due to COVID-19: Status: Acute Assessment and Plan: He is now day 19 symptoms He has still high oxygen demands He has no evidence of opportunistic infection obviously present or PE Assessment and Plan: Continue high flow oxygen He is too late at 19 days for monoclonal antibody to be beneficial Consider check procalcitonin and antibiotics if elevated such as Zosyn/Vancomycin Time Spent With Patient Time: Total time spent is greater than 50% in coordination of care (as documented) at patient's floor/unit and/or counseling patient: Time with patient: 15 - 24 minutes
--- NOTE | 2021-05-10 16:04 | P.PNCC_ITS ---
Subjective Subjective Date of Service: 05/10/21 Interval History: 66-year-old type 2 diabetic with acute on chronic stage III renal failure with hyperkalemia who was unvaccinated presented with acute hypoxemic respiratory failure from bilateral COVID-19 pneumonitis and ARDS and after exhausting all noninvasive oxygen support came down for BiPAP and he has been comfortably well on BiPAP with much diminished work of breathing maintaining oxygen saturations 93-94% on BiPAP He also has Mobitz 1 second-degree AV block with maximum pauses due to high- grade second-degree block of up to 7 seconds without symptom but it appears that poor p.o. intake and therefore relative hypovolemia plate more of a role in the acute renal failure Critical Care Time (minutes): 45 Physical Exam Vital Signs: Vital Signs: Last Vital Signs Temp 98.2 F 05/10/21 16:00 Pulse 48 L 05/10/21 16:00 Resp 19 05/10/21 16:00 BP 134/79 05/10/21 16:00 Pulse Ox 94 05/10/21 16:00 Oxygen Flow Rate 15 04/28/21 21:37 BMI result Body Mass Index 28.8 He is alert and oriented x3 nonfocal neurologically with oxygen saturations 93% blood pressure 128/73 and basically normal sinus rhythm with varying degrees of AV block Lungs without diaphragmatic effort and no accessory muscle use Cardiac exam by bedside echo shows class 1 function Objective Data Labs CBC & Chem 7: 05/11/21 07:20 05/11/21 07:20 Labs: Laboratory Results - last 24 hr 05/09/21 05/09/21 05/10/21 20:17 21:17 05:47 WBC 14.4 H RBC 5.01 Hgb 14.3 Hct 43.6 MCV 87.0 MCH 28.5 MCHC 32.8 RDW 12.9 Plt Count 243 MPV 11.5 Absolute Nucleated RBC 0.000 Nucleated RBC % (auto) 0.0 D-Dimer High Sensitivty VBG pH VBG pCO2 VBG pO2 VBG HCO3 VBG O2 Saturation VBG Base Excess Sodium Potassium Chloride Carbon Dioxide Anion Gap BUN Creatinine Estim Creat Clear Calc Estimated GFR POC Glucose 277 H 294 H Fasting Glucose Calcium Magnesium Total Bilirubin Direct Bilirubin AST ALT Alkaline Phosphatase Lactate Dehydrogenase C-Reactive Protein Total Protein Albumin 05/10/21 05/10/21 05/10/21 05:47 05:47 05:47 WBC RBC Hgb Hct MCV MCH MCHC RDW Plt Count MPV Absolute Nucleated RBC Nucleated RBC % (auto) D-Dimer High Sensitivty 2599 VBG pH 7.42 VBG pCO2 31 VBG pO2 83 VBG HCO3 20 L VBG O2 Saturation 95.0 VBG Base Excess -2.8 Sodium 138 Potassium 5.6 H Chloride 110 H Carbon Dioxide 18 L Anion Gap 16 BUN 122 H Creatinine 1.78 H Estim Creat Clear Calc 49.5 Estimated GFR 38 POC Glucose Fasting Glucose 94 D Calcium 8.4 Magnesium 2.5 Total Bilirubin 0.6 Direct Bilirubin 0.4 AST 25 ALT 17 Alkaline Phosphatase 64 Lactate Dehydrogenase 480 H C-Reactive Protein 8.92 H Total Protein 5.5 L Albumin 2.2 L 05/10/21 05/10/21 07:15 11:15 WBC RBC Hgb Hct MCV MCH MCHC RDW Plt Count MPV Absolute Nucleated RBC Nucleated RBC % (auto) D-Dimer High Sensitivty VBG pH VBG pCO2 VBG pO2 VBG HCO3 VBG O2 Saturation VBG Base Excess Sodium Potassium Chloride Carbon Dioxide Anion Gap BUN Creatinine Estim Creat Clear Calc Estimated GFR POC Glucose 87 119 H Fasting Glucose Calcium Magnesium Total Bilirubin Direct Bilirubin AST ALT Alkaline Phosphatase Lactate Dehydrogenase C-Reactive Protein Total Protein Albumin Microbiology Microbiology Results: Microbiology 04/28/21 22:17 Blood - Venous Blood Culture - Final No growth after 5 days. 04/28/21 22:17 Blood - Venous Blood Culture - Final No growth after 5 days. Progress Note: A&P Assessment and plan (1) ARDS (adult respiratory distress syndrome): Status: Acute (2) COVID-19 determined by clinical diagnostic criteria: Status: Acute (3) Mobitz (type) I (Wenckebach's) atrioventricular block: Status: Acute (4) Complete heart block: Status: Acute (5) JÚNIOR (acute kidney injury): Status: Acute (6) Chronic renal failure: Status: Acute (7) Elevated troponin: Status: Acute (8) Acute kidney injury superimposed on CKD: Status: Acute (9) Elevated troponin: Status: Acute (10) CHF exacerbation: Status: Acute (11) Acute hypoxemic respiratory failure due to COVID-19: Status: Acute (12) Leg swelling: Status: Acute Assessment and Plan: So the plan is continue to support with BiPAP and as soon as we can start weaning FiO2 we might be able to wean his the O2 delivery as well and will robert nue otherwise with IV fluids and had as we watch improvement in renal function Quality Stroke Does the patient have a stroke diagnosis?: No VTE Prior VTE?: No VTE Risk Level:: Medical - moderate - high VTE Device Contraindication: Treatment Not Indicated VTE Drug Contraindication: N/A - Med Ordered
[2021-05-10 16:31] LABS: Glucose, Whole Blood 180 mg/dL (60-115)
--- NOTE | 2021-05-10 18:02 | PC.NURSE ---
In afternoon mult pauses 3-5sec. In mobtiz 1 more of the day. Pt assessed, remaining asymptomatic at this time. Other VSS. Md notified - instructed to place atropine in room if pt does become symptomatic. Instructed to cont to monitor at this time. Pt tolerating bipap well.
[2021-05-10 20:18] LABS: Glucose, Whole Blood 273 mg/dL (60-115)
[2021-05-10] MEDS: Insulin Glargine,Hum.rec.anlog 100 UNIT/ML 10 ML VIAL 24 UNIT SUBCUT (20:25)
[2021-05-10] MEDS: 0.9 % Sodium Chloride Flush 3 ML SYRINGE IVFLUSH (23:46)
[2021-05-11] VITALS (27 sets, daily range): BP systolic 103–148; BP diastolic 54–94; PULSE 49–77; RESP 18–30; TEMP 36.7–37; O2SAT 88–95; BMI 28.8
[2021-05-11] MEDS: Sodium Bicarbonate 8.4% 100 MEQ in Dextrose 5 % 900 ML IV ×2 (05:19→16:01)
[2021-05-11 07:27] LABS: Glucose, Whole Blood 199 mg/dL (60-115)
[2021-05-11 07:29] LABS: Basophils Percent Auto 0.1 % (0-2); Eosinophils Percent Auto 0.1 % (0-4); Hematocrit 42.8 % (42.0-52.0); Hemoglobin 13.8 g/dl (14.0-18.0); Imm Gran Abs Auto 0.06 X10*3/uL (0.00-0.03); Imm Gran Pct Auto 0.4 % (0.0-0.4); Lymphocytes Absolute Auto 0.3 X10*3/uL (1.2-4.9); Lymphocytes Percent Auto 2.3 % (20-40); MANUAL DIFF FLAG SCAN; Mean Corpuscular HGB Conc 32.2 g/dl (31.0-36.0); Mean Corpuscular Volume 86.8 fL (80.0-98.0); Mean Platelet Volume 11.4 fL (9.4-12.4); Monocytes Absolute Auto 0.4 X10*3/uL (0.1-1.2); Monocytes Percent Auto 2.8 % (2-11); Neutrophils Absolute Auto 12.7 x10*3/uL (2.0-8.3); Neutrophils Percent Auto 94.3 % (45-73); Platelet Count 205 X10*3/uL (160-400); Red Blood Count 4.93 X10*6/uL (4.60-5.80); Red Cell Distribution Width 13.2 % (11.0-16.0); SCAN SMEAR FLAG 1; White Blood Count 13.5 X10*3/uL (4.8-10.8)
[2021-05-11 07:33] LABS: VBG HCO3 27 mmol/L (22-26); VBG pCO2 38 mmHg; VBG pH 7.46 (7.32-7.43); VBG pO2 56 mmHg
[2021-05-11 07:40] LABS: D Dimer High Sensitivity 2269 NG/ML
[2021-05-11 07:48] LABS: SLIDE REVIEW VERIFIED
[2021-05-11 07:54] LABS: Anion Gap 13 (12-20); Blood Urea Nitrogen 101 mg/dL (9-16); Calcium 8.4 mg/dL (8.4-10.2); Carbon Dioxide 26 mmol/L (22-29); Chloride 105 mmol/L (96-108); Creatinine Clr Calc Pharmacy 59.1; Estimated Glomerular Filt Rate 48; Glucose Random 211 mg/dL (60-115); Lactate Dehydrogenase 431 U/L (118-273); Potassium 5.6 mmol/L (3.3-5.1); Sodium 138 mmol/L (135-145)
[2021-05-11 08:36] LABS: Venous Blood Gas Refer to POC result
[2021-05-11] MEDS: Enoxaparin Sodium 40 MG/0.4 ML SYRINGE SUBCUT ×2 (08:38→20:31)
[2021-05-11] MEDS: 0.9 % Sodium Chloride Flush 3 ML SYRINGE IVFLUSH ×2 (08:38→22:25)
[2021-05-11] MEDS: dexAMETHasone sod phosphate 4 MG/ML VIAL 6 MG IVPUSH (08:41)
[2021-05-11] MEDS: Aspirin 81 MG TAB.CHEW PO (08:41)
[2021-05-11] MEDS: Insulin Lispro 100 UNIT/ML 3 ML VIAL SUBCUT ×4 (08:41→20:40)
[2021-05-11] MEDS: Sodium Zirconium Cyclosilicate 5 GM POWD.PACK PO (08:42)
[2021-05-11 08:52] LABS: Ferritin 2662 ng/mL (20-250)
[2021-05-11 11:27] LABS: Glucose, Whole Blood 218 mg/dL (60-115)
--- NOTE | 2021-05-11 12:24 | MHC.CM.PN ---
Pt continues in ICU on high flow O2 secondary to COVID: Original d/c plan was for a return to home with spousal support and no services - CM to follow for any changes
--- NOTE | 2021-05-11 12:49 | P.PNCC_ITS ---
Subjective Subjective Date of Service: 05/11/21 Interval History: 66-year-old male with COVID-19 pneumonitis and ARDS currently down here for BiPAP which she is doing beautifully with its markedly reduced his work of breathing but he has yet to wean from the degree of FiO2 He has got underlying organic conduction system disease with Mobitz 1 second- degree AV block and pauses up to 7 seconds without symptom and is an underlying type 2 diabetic with stage III acute on chronic renal failure which is now repairing on IV fluids Critical Care Time (minutes): 45 Physical Exam Vital Signs: Vital Signs: Last Vital Signs Temp 98.4 F 05/11/21 12:00 Pulse 77 05/11/21 12:00 Resp 28 H 05/11/21 12:00 BP 128/73 05/11/21 12:00 Pulse Ox 89 L 05/11/21 12:00 Oxygen Flow Rate 15 04/28/21 21:37 BMI result Body Mass Index 28.8 Alert and nonfocal neurologically Bedside echo shows normal cardiac anatomy Chest without diaphragmatic or accessory muscle effort Skin intact abdomen benign Objective Data Labs CBC & Chem 7: 05/11/21 07:20 05/11/21 07:20 Labs: Laboratory Results - last 24 hr 05/10/21 05/10/21 05/11/21 16:25 20:13 07:20 WBC 13.5 H RBC 4.93 Hgb 13.8 L Hct 42.8 MCV 86.8 MCH 28.0 MCHC 32.2 RDW 13.2 Plt Count 205 MPV 11.4 Immature Gran % (Auto) 0.4 Neut % (Auto) 94.3 H Lymph % (Auto) 2.3 L [place] % (Auto) 2.8 Eos % (Auto) 0.1 Baso % (Auto) 0.1 Lymph # (Auto) 0.3 L [place] # (Auto) 0.4 Eos # (Auto) 0.0 Baso # (Auto) 0.0 Abs Immat Gran (auto) 0.06 H Absolute Neuts (auto) 12.7 H Absolute Nucleated RBC 0.000 Nucleated RBC % (auto) 0.0 Smear Tech's Comments VERIFIED D-Dimer High Sensitivty VBG pH VBG pCO2 VBG pO2 VBG HCO3 VBG O2 Saturation VBG Base Excess Sodium Potassium Chloride Carbon Dioxide Anion Gap BUN Creatinine Estim Creat Clear Calc Estimated GFR POC Glucose 180 H 273 H Random Glucose Calcium Ferritin Lactate Dehydrogenase 05/11/21 05/11/21 05/11/21 07:20 07:20 07:22 WBC RBC Hgb Hct MCV MCH MCHC RDW Plt Count MPV Immature Gran % (Auto) Neut % (Auto) Lymph % (Auto) [place] % (Auto) Eos % (Auto) Baso % (Auto) Lymph # (Auto) [place] # (Auto) Eos # (Auto) Baso # (Auto) Abs Immat Gran (auto) Absolute Neuts (auto) Absolute Nucleated RBC Nucleated RBC % (auto) Smear Tech's Comments D-Dimer High Sensitivty 2269 VBG pH VBG pCO2 VBG pO2 VBG HCO3 VBG O2 Saturation VBG Base Excess Sodium 138 Potassium 5.6 H Chloride 105 Carbon Dioxide 26 Anion Gap 13 BUN 101 H Creatinine 1.48 H Estim Creat Clear Calc 59.1 Estimated GFR 48 POC Glucose 199 H Random Glucose 211 H D Calcium 8.4 Ferritin 2662 H Lactate Dehydrogenase 431 H 05/11/21 05/11/21 07:26 11:16 WBC RBC Hgb Hct MCV MCH MCHC RDW Plt Count MPV Immature Gran % (Auto) Neut % (Auto) Lymph % (Auto) [place] % (Auto) Eos % (Auto) Baso % (Auto) Lymph # (Auto) [place] # (Auto) Eos # (Auto) Baso # (Auto) Abs Immat Gran (auto) Absolute Neuts (auto) Absolute Nucleated RBC Nucleated RBC % (auto) Smear Tech's Comments D-Dimer High Sensitivty VBG pH 7.46 H VBG pCO2 38 VBG pO2 56 VBG HCO3 27 H VBG O2 Saturation 86.0 VBG Base Excess 4.0 Sodium Potassium Chloride Carbon Dioxide Anion Gap BUN Creatinine Estim Creat Clear Calc Estimated GFR POC Glucose 218 H Random Glucose Calcium Ferritin Lactate Dehydrogenase Microbiology Microbiology Results: Microbiology 04/28/21 22:17 Blood - Venous Blood Culture - Final No growth after 5 days. 04/28/21 22:17 Blood - Venous Blood Culture - Final No growth after 5 days. Progress Note: A&P Assessment and plan (1) ARDS (adult respiratory distress syndrome): Status: Acute (2) COVID-19 determined by clinical diagnostic criteria: Status: Acute (3) Mobitz (type) I (Wenckebach's) atrioventricular block: Status: Acute (4) Complete heart block: Status: Acute (5) JÚNIOR (acute kidney injury): Status: Acute (6) Chronic renal failure: Status: Acute (7) Elevated troponin: Status: Acute (8) Acute kidney injury superimposed on CKD: Status: Acute (9) Elevated troponin: Status: Acute (10) CHF exacerbation: Status: Acute (11) Acute hypoxemic respiratory failure due to COVID-19: Status: Acute (12) Leg swelling: Status: Acute Assessment and Plan: Doing well but still not ready to wean his FiO2 so will continue to observe and continue to volume replete as this is improving his renal function Quality Stroke Does the patient have a stroke diagnosis?: No VTE Prior VTE?: No VTE Risk Level:: Medical - moderate - high VTE Device Contraindication: Treatment Not Indicated VTE Drug Contraindication: N/A - Med Ordered
--- NOTE | 2021-05-11 14:49 | P.PNNP_ITS ---
Subjective Subjective Date of Service: 05/11/21 Principal diagnosis: COVID, JÚNIOR, CKD Interval history: Seen and examined, events noted Renal labs improved with IVF Physical Exam Vital Signs: Vital Signs: Last Vital Signs Temp 98.4 F 05/11/21 12:00 Pulse 73 05/11/21 14:00 Resp 27 H 05/11/21 14:00 BP 125/56 L 05/11/21 14:00 Pulse Ox 89 L 05/11/21 14:00 Oxygen Flow Rate 15 04/28/21 21:37 BMI result Body Mass Index 28.8 Const: General: cooperative and no acute distress Orientation/c onsciousness: patient oriented x3 Eyes: General: appearance normal, both eyes and all related structures Pupils: Equal, round and reactive pupils present Resp: Effort & Inspection: normal respiratory effort Cardio: Rate: regular rate Rhythm: regular rhythm GI: Palpation (GI): Soft to palpation Auscultation: normal bowel sounds Skin: General skin exam: no rashes or lesions noted Neuro: General: patient oriented x3 Cranial nerves: Yes Equal, round and re active pupils present Cognition (Neuro): normal cognition Extrem: General: Yes normal to inspection Objective Data Labs CBC & Chem 7: 05/11/21 07:20 05/11/21 07:20 Labs: Laboratory Results - last 24 hr 05/10/21 05/10/21 05/11/21 16:25 20:13 07:20 WBC 13.5 H RBC 4.93 Hgb 13.8 L Hct 42.8 MCV 86.8 MCH 28.0 MCHC 32.2 RDW 13.2 Plt Count 205 MPV 11.4 Immature Gran % (Auto) 0.4 Neut % (Auto) 94.3 H Lymph % (Auto) 2.3 L [place] % (Auto) 2.8 Eos % (Auto) 0.1 Baso % (Auto) 0.1 Lymph # (Auto) 0.3 L [place] # (Auto) 0.4 Eos # (Auto) 0.0 Baso # (Auto) 0.0 Abs Immat Gran (auto) 0.06 H Absolute Neuts (auto) 12.7 H Absolute Nucleated RBC 0.000 Nucleated RBC % (auto) 0.0 Smear Tech's Comments VERIFIED D-Dimer High Sensitivty VBG pH VBG pCO2 VBG pO2 VBG HCO3 VBG O2 Saturation VBG Base Excess Sodium Potassium Chloride Carbon Dioxide Anion Gap BUN Creatinine Estim Creat Clear Calc Estimated GFR POC Glucose 180 H 273 H Random Glucose Calcium Ferritin Lactate Dehydrogenase 05/11/21 05/11/21 05/11/21 07:20 07:20 07:22 WBC RBC Hgb Hct MCV MCH MCHC RDW Plt Count MPV Immature Gran % (Auto) Neut % (Auto) Lymph % (Auto) [place] % (Auto) Eos % (Auto) Baso % (Auto) Lymph # (Auto) [place] # (Auto) Eos # (Auto) Baso # (Auto) Abs Immat Gran (auto) Absolute Neuts (auto) Absolute Nucleated RBC Nucleated RBC % (auto) Smear Tech's Comments D-Dimer High Sensitivty 2269 VBG pH VBG pCO2 VBG pO2 VBG HCO3 VBG O2 Saturation VBG Base Excess Sodium 138 Potassium 5.6 H Chloride 105 Carbon Dioxide 26 Anion Gap 13 BUN 101 H Creatinine 1.48 H Estim Creat Clear Calc 59.1 Estimated GFR 48 POC Glucose 199 H Random Glucose 211 H D Calcium 8.4 Ferritin 2662 H Lactate Dehydrogenase 431 H 05/11/21 05/11/21 07:26 11:16 WBC RBC Hgb Hct MCV MCH MCHC RDW Plt Count MPV Immature Gran % (Auto) Neut % (Auto) Lymph % (Auto) [place] % (Auto) Eos % (Auto) Baso % (Auto) Lymph # (Auto) [place] # (Auto) Eos # (Auto) Baso # (Auto) Abs Immat Gran (auto) Absolute Neuts (auto) Absolute Nucleated RBC Nucleated RBC % (auto) Smear Tech's Comments D-Dimer High Sensitivty VBG pH 7.46 H VBG pCO2 38 VBG pO2 56 VBG HCO3 27 H VBG O2 Saturation 86.0 VBG Base Excess 4.0 Sodium Potassium Chloride Carbon Dioxide Anion Gap BUN Creatinine Estim Creat Clear Calc Estimated GFR POC Glucose 218 H Random Glucose Calcium Ferritin Lactate Dehydrogenase Microbiology Microbiology Results: Microbiology 04/28/21 22:17 Blood - Venous Blood Culture - Final No growth after 5 days. 04/28/21 22:17 Blood - Venous Blood Culture - Final No growth after 5 days. Procedures Date of Service Date of Service: 05/11/21 Assessment & Plan Assessment and plan (1) JÚNIOR (acute kidney injury): Status: Acute (2) Acute kidney injury superimposed on CKD: Status: Acute (3) Acute hypoxemic respiratory failure due to COVID-19: Status: Acute Assessment and Plan: 1. JÚNIOR: decr SCr and BUN w IVF 2. hypoxia from COVID-19 PNA 3. CKD 3: c/w DN/HTN renal dis--sees Dr Feldman 4. Hyperkalemia 5. High Bun/Cr: d/t steroids and IV vol depletion; no evid of UGIB or excess pr ot nutrtion which can also cause incr BUN/Cr ratio 6. HyperK: 7. NAGMA: HCO3 incr with IV NaHCO3 REC: cont to keep adequately hydrated and agree swithc fromNaHCO3 to NSor LR;; momnitor UOP/renal func; Lokelma for hyperK; avoid NToxins Time Spent With Patient Time: Total time spent is greater than 50% in coordination of care (as documented) at patient's floor/unit and/or counseling patient: Progress Note: Quality Stroke Does the patient have a stroke diagnosis?: No
[2021-05-11 16:52] LABS: Glucose, Whole Blood 250 mg/dL (60-115)
[2021-05-11] MEDS: Albumin Human 25 % 100 ML IV ×2 (20:31→21:23)
[2021-05-11] MEDS: Atorvastatin Calcium 20 MG TABLET PO (20:32)
[2021-05-11 20:36] LABS: D Dimer High Sensitivity 2379 NG/ML
[2021-05-11 20:37] LABS: Glucose, Whole Blood 196 mg/dL (60-115)
[2021-05-11] MEDS: Insulin Glargine,Hum.rec.anlog 100 UNIT/ML 10 ML VIAL 24 UNIT SUBCUT (20:40)
[2021-05-11 20:49] LABS: C Reactive Protein 6.41 mg/dL (< or = 0.50)
[2021-05-11 21:56] LABS: Ferritin 2848 ng/mL (20-250)
[2021-05-11] MEDS: Furosemide 20 MG/2 ML VIAL IVPUSH (22:25)
[2021-05-12] VITALS (30 sets, daily range): BP systolic 109–147; BP diastolic 46–92; PULSE 47–100; RESP 16–49; TEMP 37–37.2; O2SAT 84–96; BMI 29.0
--- NOTE | 2021-05-12 01:37 | PC.NURSE ---
Pt spO2 down to 85-86% after repositioning on high flow 55L 100% and nonrebreather. Bipap placed back on pt by RT, settings 15/10 100%. PA Annie aware. Pt now maintaining spO2 89-91%.
[2021-05-12] MEDS: fentaNYL citrate/PF 100 MCG/2 ML VIAL 50 MCG IVPUSH (05:40)
[2021-05-12 05:47] LABS: VBG Base Excess 10.3 mmol/L; VBG HCO3 34 mmol/L (22-26); VBG pCO2 43 mmHg; VBG pO2 44 mmHg
--- NOTE | 2021-05-12 05:49 | PC.NURSE ---
Patient's RR 35, accessory muscle use, abdominal breathing - PRN fentanyl given.
[2021-05-12 05:55] LABS: Basophils Percent Auto 0.1 % (0-2); Eosinophils Percent Auto 0.1 % (0-4); Hematocrit 40.7 % (42.0-52.0); Hemoglobin 13.2 g/dl (14.0-18.0); Imm Gran Abs Auto 0.07 X10*3/uL (0.00-0.03); Imm Gran Pct Auto 0.5 % (0.0-0.4); Lymphocytes Absolute Auto 0.4 X10*3/uL (1.2-4.9); Lymphocytes Percent Auto 3.4 % (20-40); MANUAL DIFF FLAG SCAN; Mean Corpuscular HGB Conc 32.4 g/dl (31.0-36.0); Mean Corpuscular Hemoglobin 28.3 pg (27.0-33.0); Mean Corpuscular Volume 87.2 fL (80.0-98.0); Monocytes Absolute Auto 0.4 X10*3/uL (0.1-1.2); Neutrophils Absolute Auto 11.9 x10*3/uL (2.0-8.3); Neutrophils Percent Auto 92.9 % (45-73); Platelet Count 163 X10*3/uL (160-400); Red Blood Count 4.67 X10*6/uL (4.60-5.80); Red Cell Distribution Width 13.1 % (11.0-16.0); SCAN SMEAR FLAG 1; White Blood Count 12.8 X10*3/uL (4.8-10.8)
[2021-05-12 06:04] LABS: Albumin Level 2.9 g/dL (3.5-5.0)
[2021-05-12 06:10] LABS: Venous Blood Gas Refer to POC result
[2021-05-12 06:21] LABS: Anion Gap 16 (12-20); Blood Urea Nitrogen 94 mg/dL (9-16); Calcium 8.9 mg/dL (8.4-10.2); Carbon Dioxide 28 mmol/L (22-29); Chloride 102 mmol/L (96-108); Creatinine Clr Calc Pharmacy 62.4; Estimated Glomerular Filt Rate 51; Glucose Random 98 mg/dL (60-115); Lactate Dehydrogenase 482 U/L (118-273); Magnesium 2.2 mg/dL (1.6-2.6); Phosphorus 3.9 mg/dL (2.7-4.5); Potassium 5.3 mmol/L (3.3-5.1); Sodium 141 mmol/L (135-145)
[2021-05-12 06:45] LABS: SLIDE REVIEW VERIFIED
[2021-05-12 07:39] LABS: Glucose, Whole Blood 116 mg/dL (60-115)
[2021-05-12] MEDS: Sodium Bicarbonate 8.4% 100 MEQ in Dextrose 5 % 900 ML IV ×2 (09:21→18:30)
[2021-05-12] MEDS: Insulin Lispro 100 UNIT/ML 3 ML VIAL SUBCUT ×2 (09:21→17:16)
[2021-05-12] MEDS: Sodium Zirconium Cyclosilicate 5 GM POWD.PACK PO (09:22)
[2021-05-12] MEDS: dexAMETHasone sod phosphate 4 MG/ML VIAL 5 MG IVPUSH (09:22)
[2021-05-12] MEDS: Enoxaparin Sodium 40 MG/0.4 ML SYRINGE SUBCUT ×2 (09:22→20:32)
[2021-05-12] MEDS: Aspirin 81 MG TAB.CHEW PO (09:22)
[2021-05-12] MEDS: 0.9 % Sodium Chloride Flush 3 ML SYRINGE IVFLUSH (09:23)
[2021-05-12 11:55] LABS: Glucose, Whole Blood 109 mg/dL (60-115)
--- NOTE | 2021-05-12 14:15 | PC.NURSE ---
Skin/wound assessment completed. Patient has a Stage 1 to bilateral buttocks. Barrier cream applied to area. Patient has very dry skin on feet and legs. Cream applied to legs and feet. No other skin issues or open areas noted at this time.
--- NOTE | 2021-05-12 14:34 | P.PNCC_ITS ---
Subjective Subjective Date of Service: 05/12/21 Interval History: 66-year-old type 2 diabetic for decades with is chronic stage III renal insufficiency presented with COVID-19 pneumonitis and ARDS with acute hypoxemic respiratory failure and has been here for now 2 weeks Never vaccinated and these progressed up the oxygen support tree to the point of being on BiPAP but with absolutely no reserve I documented normal left ventricular function by echo when he 1st came in Critical Care Time (minutes): 45 Physical Exam Vital Signs: Vital Signs: Last Vital Signs Temp 98.7 F 05/12/21 12:00 Pulse 60 05/12/21 14:00 Resp 32 H 05/12/21 14:00 BP 147/69 H 05/12/21 14:00 Pulse Ox 92 05/12/21 14:00 Oxygen Flow Rate 15 04/28/21 21:37 BMI result Body Mass Index 29.0 He is somewhat tachypneic with increased respiratory work no accessory muscle use or diaphragmatic effort No neck vein distension and good bilateral carotid upstrokes No peripheral edema and no acrocyanosis Benign abdomen no organomegaly Objective Data Labs CBC & Chem 7: 05/12/21 05:44 05/12/21 05:44 Labs: Laboratory Results - last 24 hr 05/11/21 05/11/21 05/11/21 16:45 20:22 20:23 WBC RBC Hgb Hct MCV MCH MCHC RDW Plt Count MPV Immature Gran % (Auto) Neut % (Auto) Lymph % (Auto) [place] % (Auto) Eos % (Auto) Baso % (Auto) Lymph # (Auto) [place] # (Auto) Eos # (Auto) Baso # (Auto) Abs Immat Gran (auto) Absolute Neuts (auto) Absolute Nucleated RBC Nucleated RBC % (auto) Smear Tech's Comments D-Dimer High Sensitivty 2379 VBG pH VBG pCO2 VBG pO2 VBG HCO3 VBG O2 Saturation VBG Base Excess Sodium Potassium Chloride Carbon Dioxide Anion Gap BUN Creatinine Estim Creat Clear Calc Estimated GFR POC Glucose 250 H Random Glucose Calcium Phosphorus Magnesium Ferritin 2848 H Lactate Dehydrogenase C-Reactive Protein 6.41 H Albumin 05/11/21 05/12/21 05/12/21 20:33 05:41 05:44 WBC 12.8 H RBC 4.67 Hgb 13.2 L Hct 40.7 L MCV 87.2 MCH 28.3 MCHC 32.4 RDW 13.1 Plt Count 163 MPV 11.0 Immature Gran % (Auto) 0.5 H Neut % (Auto) 92.9 H Lymph % (Auto) 3.4 L [place] % (Auto) 3.0 Eos % (Auto) 0.1 Baso % (Auto) 0.1 Lymph # (Auto) 0.4 L [place] # (Auto) 0.4 Eos # (Auto) 0.0 Baso # (Auto) 0.0 Abs Immat Gran (auto) 0.07 H Absolute Neuts (auto) 11.9 H Absolute Nucleated RBC 0.000 Nucleated RBC % (auto) 0.0 Smear Tech's Comments VERIFIED D-Dimer High Sensitivty VBG pH 7.50 H VBG pCO2 43 VBG pO2 44 VBG HCO3 34 H VBG O2 Saturation 72.0 VBG Base Excess 10.3 Sodium Potassium Chloride Carbon Dioxide Anion Gap BUN Creatinine Estim Creat Clear Calc Estimated GFR POC Glucose 196 H Random Glucose Calcium Phosphorus Magnesium Ferritin Lactate Dehydrogenase C-Reactive Protein Albumin 05/12/21 05/12/21 05/12/21 05:44 05:44 07:34 WBC RBC Hgb Hct MCV MCH MCHC RDW Plt Count MPV Immature Gran % (Auto) Neut % (Auto) Lymph % (Auto) [place] % (Auto) Eos % (Auto) Baso % (Auto) Lymph # (Auto) [place] # (Auto) Eos # (Auto) Baso # (Auto) Abs Immat Gran (auto) Absolute Neuts (auto) Absolute Nucleated RBC Nucleated RBC % (auto) Smear Tech's Comments D-Dimer High Sensitivty VBG pH VBG pCO2 VBG pO2 VBG HCO3 VBG O2 Saturation VBG Base Excess Sodium 141 Potassium 5.3 H Chloride 102 Carbon Dioxide 28 Anion Gap 16 BUN 94 H Creatinine 1.40 Estim Creat Clear Calc 62.4 Estimated GFR 51 POC Glucose 116 H Random Glucose 98 D Calcium 8.9 Phosphorus 3.9 Magnesium 2.2 Ferritin Lactate Dehydrogenase 482 H C-Reactive Protein 5.00 H Albumin 2.9 L D 05/12/21 11:52 WBC RBC Hgb Hct MCV MCH MCHC RDW Plt Count MPV Immature Gran % (Auto) Neut % (Auto) Lymph % (Auto) [place] % (Auto) Eos % (Auto) Baso % (Auto) Lymph # (Auto) [place] # (Auto) Eos # (Auto) Baso # (Auto) Abs Immat Gran (auto) Absolute Neuts (auto) Absolute Nucleated RBC Nucleated RBC % (auto) Smear Tech's Comments D-Dimer High Sensitivty VBG pH VBG pCO2 VBG pO2 VBG HCO3 VBG O2 Saturation VBG Base Excess Sodium Potassium Chloride Carbon Dioxide Anion Gap BUN Creatinine Estim Creat Clear Calc Estimated GFR POC Glucose 109 Random Glucose Calcium Phosphorus Magnesium Ferritin Lactate Dehydrogenase C-Reactive Protein Albumin Microbiology Microbiology Results: Microbiology 04/28/21 22:17 Blood - Venous Blood Culture - Final No growth after 5 days. 04/28/21 22:17 Blood - Venous Blood Culture - Final No growth after 5 days. Progress Note: A&P Assessment and plan (1) ARDS (adult respiratory distress syndrome): Status: Acute (2) COVID-19 determined by clinical diagnostic criteria: Status: Acute (3) Mobitz (type) I (Wenckebach's) atrioventricular block: Status: Acute (4) JÚNIOR (acute kidney injury): Status: Acute (5) Chronic renal failure: Status: Acute (6) Elevated troponin: Status: Acute (7) Leg swelling: Status: Acute (8) Acute hypoxemic respiratory failure due to COVID-19: Status: Acute (9) Acute kidney injury superimposed on CKD: Status: Acute Assessment and Plan: The plan is to remain on the noninvasive ventilation but of work of breathing increases he understands the need for intubation and in all likelihood I have to leave a temporary pacemaker so that we could sedated without fear of symptomatic bradycardia Assessment and Plan: Plan is still to try to nurture disc through on BiPAP and hopefully get him to the point where he could intermittently for 2 hours at a time tolerate combined nasal high-flow and non-rebreather so that he least kidney eat something if this continues to fail and respiratory effort increases next step is only intubation Before I leave for the week I will plan to put in a temporary pacing wire to give us at least some protection especially if we have to use sedation or anything that has a negative chronotropic effect Eventually he will need permanent pacing as he does have organic disease its Mobitz 1 second-degree block with very high-grade block of up to 7 seconds at a time with no QRS Quality Stroke Does the patient have a stroke diagnosis?: No VTE Prior VTE?: No VTE Risk Level:: Medical - moderate - high VTE Device Contraindication: Treatment Not Indicated VTE Drug Contraindication: N/A - Med Ordered
[2021-05-12 17:10] LABS: Glucose, Whole Blood 163 mg/dL (60-115)
--- NOTE | 2021-05-12 19:54 | P.PNNP_ITS ---
Subjective Subjective Date of Service: 05/12/21 Principal diagnosis: COVID, JÚNIOR, CKD Interval history: Seen and examined, events noted Physical Exam Vital Signs: Vital Signs: Last Vital Signs Temp 98.7 F 05/12/21 12:00 Pulse 59 05/12/21 18:58 Resp 26 H 05/12/21 18:58 BP 141/60 H 05/12/21 18:58 Pulse Ox 94 05/12/21 18:58 Oxygen Flow Rate 15 04/28/21 21:37 BMI result Body Mass Index 29.0 Const: General: cooperative and no acute distress Orientation/consciousness: patient oriented x3 Eyes: General: appearance normal, both eyes and all related structures Pupils: Equal, round and reactive pupils present Resp: Effort & Inspection: normal respiratory effort Cardio: Rate: regular rate Rhythm: regular rhythm GI: Palpation (GI): Soft to palpation Auscultation: normal bowel sounds Skin: General skin exam: no rashes or lesions noted Neuro: General: patient oriented x3 Cranial nerves: Yes Equal, round and reactive pupils present Cognition (Neuro): normal cognition Extrem: General: Yes normal to inspection Objective Data Labs CBC & Chem 7: 05/12/21 05:44 05/12/21 05:44 Labs: Laboratory Results - last 24 hr 05/11/21 05/11/21 05/11/21 20:22 20:23 20:33 WBC RBC Hgb Hct MCV MCH MCHC RDW Plt Count MPV Immature Gran % (Auto) Neut % (Auto) Lymph % (Auto) [place] % (Auto) Eos % (Auto) Baso % (Auto) Lymph # (Auto) [place] # (Auto) Eos # (Auto) Baso # (Auto) Abs Immat Gran (auto) Absolute Neuts (auto) Absolute Nucleated RBC Nucleated RBC % (auto) Smear Tech's Comments D-Dimer High Sensitivty 2379 VBG pH VBG pCO2 VBG pO2 VBG HCO3 VBG O2 Saturation VBG Base Excess Sodium Potassium Chloride Carbon Dioxide Anion Gap BUN Creatinine Estim Creat Clear Calc Estimated GFR POC Glucose 196 H Random Glucose Calcium Phosphorus Magnesium Ferritin 2848 H Lactate Dehydrogenase C-Reactive Protein 6.41 H Albumin 05/12/21 05/12/21 05/12/21 05:41 05:44 05:44 WBC 12.8 H RBC 4.67 Hgb 13.2 L Hct 40.7 L MCV 87.2 MCH 28.3 MCHC 32.4 RDW 13.1 Plt Count 163 MPV 11.0 Immature Gran % (Auto) 0.5 H Neut % (Auto) 92.9 H Lymph % (Auto) 3.4 L [place] % (Auto) 3.0 Eos % (Auto) 0.1 Baso % (Auto) 0.1 Lymph # (Auto) 0.4 L [place] # (Auto) 0.4 Eos # (Auto) 0.0 Baso # (Auto) 0.0 Abs Immat Gran (auto) 0.07 H Absolute Neuts (auto) 11.9 H Absolute Nucleated RBC 0.000 Nucleated RBC % (auto) 0.0 Smear Tech's Comments VERIFIED D-Dimer High Sensitivty VBG pH 7.50 H VBG pCO2 43 VBG pO2 44 VBG HCO3 34 H VBG O2 Saturation 72.0 VBG Base Excess 10.3 Sodium 141 Potassium 5.3 H Chloride 102 Carbon Dioxide 28 Anion Gap 16 BUN 94 H Creatinine 1.40 Estim Creat Clear Calc 62.4 Estimated GFR 51 POC Glucose Random Glucose 98 D Calcium 8.9 Phosphorus 3.9 Magnesium 2.2 Ferritin Lactate Dehydrogenase 482 H C-Reactive Protein 5.00 H Albumin 05/12/21 05/12/21 05/12/21 05:44 07:34 11:52 WBC RBC Hgb Hct MCV MCH MCHC RDW Plt Count MPV Immature Gran % (Auto) Neut % (Auto) Lymph % (Auto) [place] % (Auto) Eos % (Auto) Baso % (Auto) Lymph # (Auto) [place] # (Auto) Eos # (Auto) Baso # (Auto) Abs Immat Gran (auto) Absolute Neuts (auto) Absolute Nucleated RBC Nucleated RBC % (auto) Smear Tech's Comments D-Dimer High Sensitivty VBG pH VBG pCO2 VBG pO2 VBG HCO3 VBG O2 Saturation VBG Base Excess Sodium Potassium Chloride Carbon Dioxide Anion Gap BUN Creatinine Estim Creat Clear Calc Estimated GFR POC Glucose 116 H 109 Random Glucose Calcium Phosphorus Magnesium Ferritin Lactate Dehydrogenase C-Reactive Protein Albumin 2.9 L D 05/12/21 17:02 WBC RBC Hgb Hct MCV MCH MCHC RDW Plt Count MPV Immature Gran % (Auto) Neut % (Auto) Lymph % (Auto) [place] % (Auto) Eos % (Auto) Baso % (Auto) Lymph # (Auto) [place] # (Auto) Eos # (Auto) Baso # (Auto) Abs Immat Gran (auto) Absolute Neuts (auto) Absolute Nucleated RBC Nucleated RBC % (auto) Smear Tech's Comments D-Dimer High Sensitivty VBG pH VBG pCO2 VBG pO2 VBG HCO3 VBG O2 Saturation VBG Base Excess Sodium Potassium Chloride Carbon Dioxide Anion Gap BUN Creatinine Estim Creat Clear Calc Estimated GFR POC Glucose 163 H Random Glucose Calcium Phosphorus Magnesium Ferritin Lactate Dehydrogenase C-Reactive Protein Albumin Microbiology Microbiology Results: Microbiology 04/28/21 22:17 Blood - Venous Blood Culture - Final No growth after 5 days. 04/28/21 22:17 Blood - Venous Blood Culture - Final No growth after 5 days. Procedures Date of Service Date of Service: 05/12/21 Assessment & Plan Assessment and plan (1) JÚNIOR (acute kidney injury): Status: Acute (2) Acute kidney injury superimposed on CKD: Status: Acute (3) Acute hypoxemic respiratory failure due to COVID-19: Status: Acute Assessment and Plan: 1. JÚNIOR: cont decr SCr and BUN w IVF 2. hypoxia from COVID-19 PNA 3. CKD 3: c/w DN/HTN renal dis----sees Dr Feldman 4. Hyperkalemia: controlled on lokelma 5. High Bun/Cr: d/t steroids and IV vol depletion; no evid of UGIB or excess prot nutrtion which can also cause incr BUN/Cr ratio 7. NAGMA: resolved with IV NaHCO3 REC: cont to keep adequately hydrated and agree switch fromNaHCO3 to NS or LR;; momnitor UOP/renal func; Lokelma for hyperK; avoid NToxins Time Spent With Patient Time: Total time spent is greater than 50% in coordination of care (as document ed) at patient's floor/unit and/or counseling patient: Progress Note: Quality Stroke Does the patient have a stroke diagnosis?: No
[2021-05-12 20:27] LABS: D Dimer High Sensitivity 3008 NG/ML
[2021-05-12] MEDS: Atorvastatin Calcium 20 MG TABLET PO (20:32)
[2021-05-12] MEDS: Albumin Human 25 % 100 ML IV ×2 (21:30→23:45)
[2021-05-12] MEDS: Furosemide 20 MG/2 ML VIAL IVPUSH (21:31)
[2021-05-12] MEDS: Insulin Glargine,Hum.rec.anlog 100 UNIT/ML 10 ML VIAL 24 UNIT SUBCUT (21:32)
[2021-05-12 21:40] LABS: Ferritin 2869 ng/mL (20-250)
[2021-05-13] VITALS (36 sets, daily range): BP systolic 79–167; BP diastolic 25–82; PULSE 40–108; RESP 18–39; TEMP 32–37.8; O2SAT 85–97; BMI 28.0
[2021-05-13] MEDS: fentaNYL citrate/PF 100 MCG/2 ML VIAL 50 MCG IVPUSH ×2 (04:41→07:42)
[2021-05-13 04:47] LABS: Appearance Urine CLOUDY; Color Urine YELLOW; Glucose Urine UA NEG (NEG); Leukocyte Esterase Urine 3+ (NEG); Nitrite Urine NEG (NEG); Specific Gravity - Urine 1.015 (1.005-1.025); UACC Culture Trigger YES; Urine Blood 2+ (NEG); Urine Ketones NEG (NEG); Urine Protein 2+ MG/DL (NEG-TRACE)
[2021-05-13 04:56] LABS: Mucus Urine 2+ /LPF; Squamous Epithelial Cell Urine 1+ /LPF
[2021-05-13 04:57] LABS: Bacteria Urine 2+ /LPF; WBC Urine 30-49 /HPF (0-4)
[2021-05-13] MEDS: Albuterol/Iprat 2.5/0.5MG 3 ML AMPUL.NEB INHALE (05:24)
[2021-05-13 05:51] LABS: VBG Base Excess 16.4 mmol/L; VBG HCO3 42 mmol/L (22-26); VBG pCO2 54 mmHg; VBG pO2 42 mmHg
[2021-05-13 06:07] LABS: Venous Blood Gas Refer to POC result
[2021-05-13 06:07] LABS: MANUAL DIFF FLAG NO
[2021-05-13 06:16] LABS: Basophils Percent Auto 0.1 % (0-2); Eosinophils Percent Auto 0.2 % (0-4); Hematocrit 40.1 % (42.0-52.0); Hemoglobin 12.7 g/dl (14.0-18.0); Imm Gran Abs Auto 0.06 X10*3/uL (0.00-0.03); Imm Gran Pct Auto 0.5 % (0.0-0.4); Lymphocytes Percent Auto 8.2 % (20-40); Mean Corpuscular HGB Conc 31.7 g/dl (31.0-36.0); Mean Corpuscular Hemoglobin 28.2 pg (27.0-33.0); Mean Corpuscular Volume 89.1 fL (80.0-98.0); Mean Platelet Volume 11.5 fL (9.4-12.4); Monocytes Absolute Auto 0.3 X10*3/uL (0.1-1.2); Monocytes Percent Auto 2.7 % (2-11); Neutrophils Percent Auto 88.3 % (45-73); Platelet Count 143 X10*3/uL (160-400); Red Cell Distribution Width 12.9 % (11.0-16.0); White Blood Count 12.5 X10*3/uL (4.8-10.8)
[2021-05-13 06:28] LABS: Glucose, Whole Blood 134 mg/dL (60-115)
[2021-05-13 06:36] LABS: Albumin Level 3.3 g/dL (3.5-5.0); Anion Gap 17 (12-20); Blood Urea Nitrogen 79 mg/dL (9-16); C Reactive Protein 11.54 mg/dL (< or = 0.50); Calcium 8.8 mg/dL (8.4-10.2); Carbon Dioxide 34 mmol/L (22-29); Chloride 98 mmol/L (96-108); Creatinine Clr Calc Pharmacy 62.2; Estimated Glomerular Filt Rate 50; Glucose Random 85 mg/dL (60-115); Magnesium 2.1 mg/dL (1.6-2.6); Phosphorus 4.1 mg/dL (2.7-4.5); Potassium 4.9 mmol/L (3.3-5.1); Sodium 144 mmol/L (135-145)
[2021-05-13 06:40] LABS: B Type Natriuretic Peptide 523 pg/mL (<100)
--- NOTE | 2021-05-13 06:40 | PC.NURSE ---
Assumed care from Qiana at 19:00. Patient was alert and oriented x3. He was in some discomfort, feeling like he needed to urinate but having some difficulty, as well as incontinent of a small amount of urine, this was addressed with PA, and curry catheter was ordered and 16 Fr curry was placed with 10 cc. Urine was malodorous as well, and UA with reflex urine cx was ordered and collected. 700 ccs out initially, and Urine had mild hematuria that cleared up to pale yellow urine, with 1500 ccs out total overnight. LS at that time were dim bases and fine crackles RML and RLL, and PA made aware and order for Lasix 20 mg IVP was placed and administered with good effect--LS cleared by morning, with inspiratory wheezes at RML and RLL as well as dim bases by 4 am. Patient decompensating around 4:34 am. Patient was on bipap with AVAPs settings, and from 19:00 to about 04:00 patient was breathing 19-22 times per minute, then as of 04:00 it was noted that patient has been on bicarbonate gtt at 100 mLs per hour, and that his bicarbonate was corrected on his VBG from 12/3 AM so that his HCO3 was 27 (H) and his PH was 7.46(H) and this was discussed with PA, and the bicarb gtt was stopped about 04:00 am. Patient then woke up, and was tachypneic. RT was notified and came to bedside and trialed high flow with NRB as well as Bipap settings, but in the end, returned to similar AVAPS settings as what he was initially on. His RR stayed in the 30's-42 during the morning. His work of breathing was increased with upper accessory muscle use and abdominal muscle use. He looked like he was tiring out, placing hands on top of his head. Denied discomfort but appeared visibly very uncomfortable. Heart rate climbed. Initially on monitor he was in second degree Mobitz Type 2, and would alternate to just having first degree AV block, and his rate was as slow as 38, but staying mostly 40's-50's. His rate was faster from 4 am - 7 am, with mostly 70's-90;s and an episode 112-120. Murmur on auscultation. Patient says he has had a murmur since age of 10. PA aware. Discussed patient's clinical decompensation with MD this morning, and also VBG noted to have CO2 of 54
[2021-05-13 06:47] LABS: Lactate Dehydrogenase 546 U/L (118-273)
[2021-05-13 07:33] LABS: Glucose, Whole Blood 112 mg/dL (60-115)
[2021-05-13] MEDS: Enoxaparin Sodium 40 MG/0.4 ML SYRINGE SUBCUT ×2 (07:41→20:21)
[2021-05-13] MEDS: dexAMETHasone sod phosphate 4 MG/ML VIAL IVPUSH (07:42)
[2021-05-13] MEDS: 0.9 % Sodium Chloride Flush 3 ML SYRINGE IVFLUSH ×3 (07:43→17:15)
--- NOTE | 2021-05-13 09:14 | P.PNNP_ITS ---
Subjective Subjective Date of Service: 05/13/21 Principal diagnosis: COVID, JÚNIOR, CKD Interval history: Seen and examined, events noted c/o SOB denies CP, N/V/D Physical Exam Vital Signs: Vital Signs: Last Vital Signs Temp 99.5 F 05/13/21 09:00 Pulse 86 05/13/21 09:00 Resp 38 H 05/13/21 09:00 BP 147/64 H 05/13/21 09:00 Pulse Ox 89 L 05/13/21 09:00 Oxygen Flow Rate 15 04/28/21 21:37 BMI result Body Mass Index 28.0 Const: General: ill appearing HENMT: Head: Yes normocephalic and Yes atraumatic Neck: Neck: Yes supple Resp: Auscultation: diminished lung sounds Cardio: Heart sounds: S1 normal heart sound present and S2 normal heart sound present GI: Palpation (GI): Soft to palpation and nontender Extrem: General: Yes normal to inspection Objective Data Labs CBC & Chem 7: 05/13/21 06:02 05/13/21 06:02 Labs: Laboratory Results - last 24 hr 05/12/21 05/12/21 05/12/21 11:52 17:02 20:06 WBC RBC Hgb Hct MCV MCH MCHC RDW Plt Count MPV Immature Gran % (Auto) Neut % (Auto) Lymph % (Auto) [place] % (Auto) Eos % (Auto) Baso % (Auto) Lymph # (Auto) [place] # (Auto) Eos # (Auto) Baso # (Auto) Abs Immat Gran (auto) Absolute Neuts (auto) Absolute Nucleated RBC Nucleated RBC % (auto) D-Dimer High Sensitivty VBG pH VBG pCO2 VBG pO2 VBG HCO3 VBG O2 Saturation VBG Base Excess Sodium Potassium Chloride Carbon Dioxide Anion Gap BUN Creatinine Estim Creat Clear Calc Estimated GFR POC Glucose 109 163 H Random Glucose Calcium Phosphorus Magnesium Ferritin 2869 H Lactate Dehydrogenase C-Reactive Protein B-Natriuretic Peptide Albumin Urine Color Urine Appearance Urine pH Ur Specific [place] Urine Protein Urine Glucose (UA) Urine Ketones Urine Blood Urine Nitrite Ur Leukocyte Esterase Urine RBC Urine WBC Ur Squamous Epith Cells Urine Bacteria Urine Mucus 05/12/21 05/12/21 05/13/21 20:06 20:40 04:39 WBC RBC Hgb Hct MCV MCH MCHC RDW Plt Count MPV Immature Gran % (Auto) Neut % (Auto) Lymph % (Auto) [place] % (Auto) Eos % (Auto) Baso % (Auto) Lymph # (Auto) [place] # (Auto) Eos # (Auto) Baso # (Auto) Abs Immat Gran (auto) Absolute Neuts (auto) Absolute Nucleated RBC Nucleated RBC % (auto) D-Dimer High Sensitivty 3008 VBG pH VBG pCO2 VBG pO2 VBG HCO3 VBG O2 Saturation VBG Base Excess Sodium Potassium Chloride Carbon Dioxide Anion Gap BUN Creatinine Estim Creat Clear Calc Estimated GFR POC Glucose 134 H Random Glucose Calcium Phosphorus Magnesium Ferritin Lactate Dehydrogenase C-Reactive Protein B-Natriuretic Peptide Albumin Urine Color YELLOW Urine Appearance CLOUDY Urine pH 7.0 Ur Specific [place] 1.015 Urine Protein 2+ H Urine Glucose (UA) NEG Urine Ketones NEG Urine Blood 2+ H Urine Nitrite NEG Ur Leukocyte Esterase 3+ H Urine RBC 5-9 H Urine WBC 30-49 H Ur Squamous Epith Cells 1+ Urine Bacteria 2+ Urine Mucus 2+ 05/13/21 05/13/21 05/13/21 05:45 06:02 06:02 WBC 12.5 H RBC 4.50 L Hgb 12.7 L Hct 40.1 L MCV 89.1 MCH 28.2 MCHC 31.7 RDW 12.9 Plt Count 143 L MPV 11.5 Immature Gran % (Auto) 0.5 H Neut % (Auto) 88.3 H Lymph % (Auto) 8.2 L [place] % (Auto) 2.7 Eos % (Auto) 0.2 Baso % (Auto) 0.1 Lymph # (Auto) 1.0 L [place] # (Auto) 0.3 Eos # (Auto) 0.0 Baso # (Auto) 0.0 Abs Immat Gran (auto) 0.06 H Absolute Neuts (auto) 11.0 H Absolute Nucleated RBC 0.000 Nucleated RBC % (auto) 0.0 D-Dimer High Sensitivty VBG pH 7.50 H VBG pCO2 54 VBG pO2 42 VBG HCO3 42 H VBG O2 Saturation 70.0 VBG Base Excess 16.4 Sodium 144 Potassium 4.9 Chloride 98 Carbon Dioxide 34 H Anion Gap 17 BUN 79 H Creatinine 1.41 H Estim Creat Clear Calc 62.2 Estimated GFR 50 POC Glucose Random Glucose 85 Calcium 8.8 Phosphorus 4.1 Magnesium 2.1 Ferritin Lactate Dehydrogenase 546 H C-Reactive Protein 11.54 H B-Natriuretic Peptide Albumin 3.3 L Urine Color Urine Appearance Urine pH Ur Specific [place] Urine Protein Urine Glucose (UA) Urine Ketones Urine Blood Urine Nitrite Ur Leukocyte Esterase Urine RBC Urine WBC Ur Squamous Epith Cells Urine Bacteria Urine Mucus 05/13/21 05/13/21 06:02 07:26 WBC RBC Hgb Hct MCV MCH MCHC RDW Plt Count MPV Immature Gran % (Auto) Neut % (Auto) Lymph % (Auto) [place] % (Auto) Eos % (Auto) Baso % (Auto) Lymph # (Auto) [place] # (Auto) Eos # (Auto) Baso # (Auto) Abs Immat Gran (auto) Absolute Neuts (auto) Absolute Nucleated RBC Nucleated RBC % (auto) D-Dimer High Sensitivty VBG pH VBG pCO2 VBG pO2 VBG HCO3 VBG O2 Saturation VBG Base Excess Sodium Potassium Chloride Carbon Dioxide Anion Gap BUN Creatinine Estim Creat Clear Calc Estimated GFR POC Glucose 112 Random Glucose Calcium Phosphorus Magnesium Ferritin Lactate Dehydrogenase C-Reactive Protein B-Natriuretic Peptide 523 H Albumin Urine Color Urine Appearance Urine pH Ur Specific [place] Urine Protein Urine Glucose (UA) Urine Ketones Urine Blood Urine Nitrite Ur Leukocyte Esterase Urine RBC Urine WBC Ur Squamous Epith Cells Urine Bacteria Urine Mucus Microbiology Microbiology Results: Microbiology 04/28/21 22:17 Blood - Venous Blood Culture - Final No growth after 5 days. 04/28/21 22:17 Blood - Venous Blood Culture - Final No growth after 5 days. Procedures Date of Service Date of Service: 05/13/21 Assessment & Plan Assessment and plan (1) JÚNIOR (acute kidney injury): Status: Acute (2) SARS-CoV-2 positive: Status: Acute (3) CKD (chronic kidney disease) stage 3, GFR 30-59 ml/min: Status: Acute Assessment and Plan: Scr stable JÚNIOR due to compromised kidney perfusion known CKD 3 due to DM/HTN followed by Dr Feldman Hyperkalemia controlled on sodium zirconium REC no need for IVF sodium zirconium as needed follow kidney function and electrolytes Time Spent With Patient Time: Total time spent is greater than 50% in coordination of care (as documented) at patient's floor/unit and/or counseling patient: Progress Note: Quality Stroke Does the patient have a stroke diagnosis?: No
--- NOTE | 2021-05-13 09:37 | MHC.CM.PN ---
dc plan remains the same , for patient to return home no svcs. currently pt is on bipap 100 % fio2 in the icu. cm to cont. to follow.
--- NOTE | 2021-05-13 10:25 | P.PNCC_ITS ---
Subjective Subjective Date of Service: 05/13/21 Interval History: 66-year-old type 2 diabetic with stage III chronic renal insufficiency under vaccinated presents with COVID-19 pneumonitis and ARDS and has been in the hospital for 3 weeks and lastly on noninvasive ventilation and his pCO2 started to increase significantly indicating obviously that he is fatiguing unable to to compensate and it this was explained to him and he was accepting of the need to intubate and while doing that under sedation because of his very high-grade second-degree AV block on the basis of Mobitz 1 pathology we placed a temporary pacemaker as well both procedures without complication x-ray looked fine OG tube is in place we could start to feed Given the poor compliance of his lung we have limited are tidal volume to less than 6 cc/kilos at 450 cc load is respiratory rate to 18 lower his in flow rate to 42 liters/minute and lowered his PEEP to 8-9 and is oxygen saturations are 92% and this is of course still on FiO2 100% Critical Care Time (minutes): 90 Physical Exam Vital Signs: Vital Signs: Last Vital Signs Temp 99.9 F 05/13/21 10:00 Pulse 71 05/13/21 10:00 Resp 29 H 05/13/21 10:00 BP 119/65 05/13/21 10:00 Pulse Ox 89 L 05/13/21 10:00 Oxygen Flow Rate 15 04/28/21 21:37 BMI result Body Mass Index 28.0 Sedated and intubated but up until then he nonfocal neurologically and alert and oriented [place] neck veins good bilateral carotid upstrokes no bruits Lungs without adventitious sounds no diaphragmatic effort but there was accessory muscle use Abdomen benign soft positive bowel sounds no organomegaly Objective Data Labs CBC & Chem 7: 05/13/21 06:02 05/13/21 06:02 Labs: Laboratory Results - last 24 hr 05/12/21 05/12/21 05/12/21 11:52 17:02 20:06 WBC RBC Hgb Hct MCV MCH MCHC RDW Plt Count MPV Immature Gran % (Auto) Neut % (Auto) Lymph % (Auto) [place] % (Auto) Eos % (Auto) Baso % (Auto) Lymph # (Auto) [place] # (Auto) Eos # (Auto) Baso # (Auto) Abs Immat Gran (auto) Absolute Neuts (auto) Absolute Nucleated RBC Nucleated RBC % (auto) D-Dimer High Sensitivty VBG pH VBG pCO2 VBG pO2 VBG HCO3 VBG O2 Saturation VBG Base Excess Sodium Potassium Chloride Carbon Dioxide Anion Gap BUN Creatinine Estim Creat Clear Calc Estimated GFR POC Glucose 109 163 H Random Glucose Calcium Phosphorus Magnesium Ferritin 2869 H Lactate Dehydrogenase C-Reactive Protein B-Natriuretic Peptide Albumin Urine Color Urine Appearance Urine pH Ur Specific [place] Urine Protein Urine Glucose (UA) Urine Ketones Urine Blood Urine Nitrite Ur Leukocyte Esterase Urine RBC Urine WBC Ur Squamous Epith Cells Urine Bacteria Urine Mucus 05/12/21 05/12/21 05/13/21 20:06 20:40 04:39 WBC RBC Hgb Hct MCV MCH MCHC RDW Plt Count MPV Immature Gran % (Auto) Neut % (Auto) Lymph % (Auto) [place] % (Auto) Eos % (Auto) Baso % (Auto) Lymph # (Auto) [place] # (Auto) Eos # (Auto) Baso # (Auto) Abs Immat Gran (auto) Absolute Neuts (auto) Absolute Nucleated RBC Nucleated RBC % (auto) D-Dimer High Sensitivty 3008 VBG pH VBG pCO2 VBG pO2 VBG HCO3 VBG O2 Saturation VBG Base Excess Sodium Potassium Chloride Carbon Dioxide Anion Gap BUN Creatinine Estim Creat Clear Calc Estimated GFR POC Glucose 134 H Random Glucose Calcium Phosphorus Magnesium Ferritin Lactate Dehydrogenase C-Reactive Protein B-Natriuretic Peptide Albumin Urine Color YELLOW Urine Appearance CLOUDY Urine pH 7.0 Ur Specific [place] 1.015 Urine Protein 2+ H Urine Glucose (UA) NEG Urine Ketones NEG Urine Blood 2+ H Urine Nitrite NEG Ur Leukocyte Esterase 3+ H Urine RBC 5-9 H Urine WBC 30-49 H Ur Squamous Epith Cells 1+ Urine Bacteria 2+ Urine Mucus 2+ 05/13/21 05/13/21 05/13/21 05:45 06:02 06:02 WBC 12.5 H RBC 4.50 L Hgb 12.7 L Hct 40.1 L MCV 89.1 MCH 28.2 MCHC 31.7 RDW 12.9 Plt Count 143 L MPV 11.5 Immature Gran % (Auto) 0.5 H Neut % (Auto) 88.3 H Lymph % (Auto) 8.2 L [place] % (Auto) 2.7 Eos % (Auto) 0.2 Baso % (Auto) 0.1 Lymph # (Auto) 1.0 L [place] # (Auto) 0.3 Eos # (Auto) 0.0 Baso # (Auto) 0.0 Abs Immat Gran (auto) 0.06 H Absolute Neuts (auto) 11.0 H Absolute Nucleated RBC 0.000 Nucleated RBC % (auto) 0.0 D-Dimer High Sensitivty VBG pH 7.50 H VBG pCO2 54 VBG pO2 42 VBG HCO3 42 H VBG O2 Saturation 70.0 VBG Base Excess 16.4 Sodium 144 Potassium 4.9 Chloride 98 Carbon Dioxide 34 H Anion Gap 17 BUN 79 H Creatinine 1.41 H Estim Creat Clear Calc 62.2 Estimated GFR 50 POC Glucose Random Glucose 85 Calcium 8.8 Phosphorus 4.1 Magnesium 2.1 Ferritin Lactate Dehydrogenase 546 H C-Reactive Protein 11.54 H B-Natriuretic Peptide Albumin 3.3 L Urine Color Urine Appearance Urine pH Ur Specific [place] Urine Protein Urine Glucose (UA) Urine Ketones Urine Blood Urine Nitrite Ur Leukocyte Esterase Urine RBC Urine WBC Ur Squamous Epith Cells Urine Bacteria Urine Mucus 05/13/21 05/13/21 06:02 07:26 WBC RBC Hgb Hct MCV MCH MCHC RDW Plt Count MPV Immature Gran % (Auto) Neut % (Auto) Lymph % (Auto) [place] % (Auto) Eos % (Auto) Baso % (Auto) Lymph # (Auto) [place] # (Auto) Eos # (Auto) Baso # (Auto) Abs Immat Gran (auto) Absolute Neuts (auto) Absolute Nucleated RBC Nucleated RBC % (auto) D-Dimer High Sensitivty VBG pH VBG pCO2 VBG pO2 VBG HCO3 VBG O2 Saturation VBG Base Excess Sodium Potassium Chloride Carbon Dioxide Anion Gap BUN Creatinine Estim Creat Clear Calc Estimated GFR POC Glucose 112 Random Glucose Calcium Phosphorus Magnesium Ferritin Lactate Dehydrogenase C-Reactive Protein B-Natriuretic Peptide 523 H Albumin Urine Color Urine Appearance Urine pH Ur Specific [place] Urine Protein Urine Glucose (UA) Urine Ketones Urine Blood Urine Nitrite Ur Leukocyte Esterase Urine RBC Urine WBC Ur Squamous Epith Cells Urine Bacteria Urine Mucus Microbiology Microbiology Results: Microbiology 04/28/21 22:17 Blood - Venous Blood Culture - Final No growth after 5 days. 04/28/21 22:17 Blood - Venous Blood Culture - Final No growth after 5 days. Progress Note: A&P Assessment and plan (1) CKD (chronic kidney disease) stage 3, GFR 30-59 ml/min: Status: Acute (2) SARS-CoV-2 positive: Status: Acute (3) ARDS (adult respiratory distress syndrome): Status: Acute (4) COVID-19 determined by clinical diagnostic criteria: Status: Acute (5) Mobitz (type) I (Wenckebach's) atrioventricular block: Status: Acute (6) Complete heart block: Status: Acute (7) JÚNIOR (acute kidney injury): Status: Acute (8) Chronic renal failure: Status: Acute (9) Elevated troponin: Status: Acute (10) Acute kidney injury superimposed on CKD: Status: Acute (11) Elevated troponin: Status: Acute (12) CHF exacerbation: Status: Acute (13) Acute hypoxemic respiratory failure due to COVID-19: Status: Acute (14) Leg swelling: Status: Acute Assessment and Plan: Intubated now with sputum sampling rule out nosocomial infection IV fluids to influences blood pressure but otherwise pressure maintenance with the with Levophed and sedation will be with propofol and Versed and will begin feeding Quality Stroke Does the patient have a stroke diagnosis?: No VTE Prior VTE?: No VTE Risk Level:: Medical - moderate - high VTE Device Contraindication: Treatment Not Indicated VTE Drug Contraindication: N/A - Med Ordered
[2021-05-13] MEDS: Nystatin Powder 15 GM BOTTLE 1 APPL TOPICAL ×3 (10:38→21:58)
[2021-05-13] MEDS: propofoL 200 MG/20 ML VIAL 100 MG IVPUSH (12:15)
[2021-05-13] MEDS: Rocuronium Bromide 50 MG/5 ML VIAL IVPUSH ×3 (12:15→18:24)
[2021-05-13] MEDS: propofoL 1,000 MG/100 ML VIAL 11.28 MG IVCONT (12:15)
--- NOTE | 2021-05-13 12:22 | MHC.CM.PN ---
pt is in the icu, today pt was intubated and put on MV. dc plan is for patient to return home at dc. cm to cont. to follow.
[2021-05-13] MEDS: Sodium Chloride 0.45 % 1,000 ML 100 ML IVCONT ×2 (12:30→21:59)
--- NOTE | 2021-05-13 13:50 | W.PM.CCHP ---
Procedures Date of Service Date of Service: 05/13/21 Intubation Intubation Comments: 66-year-old with ARDS from COVID-19 who was failing with increasing pCO2 on BiPAP explained both to the patient and to the family with with [place] Ms. consent to proceed with intubation Utilizing glide scope guidance a 7.5 endotracheal tube was placed across the the vocal cords resulting in intubation without complication and confirmed position by end-tidal CO2 and with good bilateral breath sounds without complication Consent for Procedure: Elective - informed consent obtained Time out performed: Yes Sedative: propofol Paralytic: rocuronium Laryngoscope: fiber optic video scope ET tube size: 7.5 ET tube uncuffed: No Tube secured depth (cm): 24 Tube secured location: lips Tube placement confirmation: visualized tube passing through cords, equal breath sounds bilaterally, no breath sounds over epigastrium and confirmation by capnometry Patient tolerated procedure: well and no complications Intubation complications: none
--- NOTE | 2021-05-13 13:54 | W.PM.CCHP ---
Procedures Date of Service Date of Service: 05/13/21 Procedure Note Procedure Note: After sterile preparation and draping and utilizing ultrasound guidance a gained in easy entry to the right internal jugular vein without complication passing a J tipped guidewire retrograde with Seldinger technique to the right atrium over which a 6 [place] introducer was placed and and sewed and tethered into place and then ultimately with the help of fluoroscopic guidance of through the introducer I passed a 5 [place] balloon tipped bipolar temporary pacing catheter and into the right ventricle abutting the apical portion of the interventricular septum by fluoro and then I tested the battery it was able to capture to below to mA and had an excellent sensing threshold and so I set the output for safety at 8 sensing down to 1.0 and a backup heart rate of 60 and was performing beautifully so this was all sterilely dressed and secured
[2021-05-13] MEDS: Midazolam HCl/PF 2 MG/2 ML VIAL 4 MG IVPUSH (14:40)
[2021-05-13] MEDS: propofoL 1,000 MG/100 ML VIAL 28.2 MG IVCONT ×2 (14:45→18:21)
[2021-05-13 14:57] LABS: Glucose, Whole Blood 135 mg/dL (60-115)
[2021-05-13] MEDS: Sodium Chloride 0.45 % 1,000 ML 500 ML IVCONT (15:05)
[2021-05-13] MEDS: Midazolam HCl/NS 50 MG/50 ML PLAST..BAG IVCONT (15:21)
--- NOTE | 2021-05-13 16:24 | PC.NURSE ---
Upon assuming patient care this morning, MD made decision to intubate and place temporary pacemaker at bedside. Procedures discussed with patient's family including patient's /HCP (Nakia Roberson [phone] cell, [phone] home) and MD. Consent obtained. Nakia and patient's 3 adult children approved for a ONE time visit prior to intubation for advent practice of last rights in the event of a negative patient outcome. MD and Nsg supervisor quilting aware. Around 1200 patient intubated by MD and RT with 100 mg propofol IVP and 50 mg rocuronium IVP. Placed on propofol drip. Patient tolerated well. ETT 7.5 and 25 maddi. AC VC settings: rate 22 tidal volume 400, peep 10 and 100% fio2, with O2 sats in the low 90s. OG tube placed. Chest xray obtained for placement. Restraints applied for patient safety. 1 L of 1/2 NS bolus given per MD. 12:15 patient started on Levophed drip for MAP <65. Around 12:30 MD inserted temporary pacemaker under fluoroscopy at bedside. Patient tolerated well. On tele, patient V paced on demand pacing settings with a back up rate of 58, Output of 8.0 mA and Sensitivity of 1.0 mV. Capture and sensing present. After procedures patient given thorough mouth and skin care. Bed bath given and hair washed. Stage I to bilateral buttock and small slit to gluteal fold. Triad applied. Air loss mattress. Repo q2h and prn.
[2021-05-13 16:30] LABS: Glucose, Whole Blood 159 mg/dL (60-115)
[2021-05-13] MEDS: Insulin Lispro 100 UNIT/ML 3 ML VIAL SUBCUT (17:19)
[2021-05-13] MEDS: Insulin Glargine,Hum.rec.anlog 100 UNIT/ML 10 ML VIAL 24 UNIT SUBCUT (20:20)
[2021-05-13] MEDS: Chlorhexidine Gluc Oral Rinse 15 ML MOUTHWASH BUCCAL (20:20)
[2021-05-13] MEDS: Atorvastatin Calcium 20 MG TABLET PO (20:20)
[2021-05-13 20:43] LABS: VBG Base Excess 13.8 mmol/L; VBG HCO3 39 mmol/L (22-26); VBG pCO2 55 mmHg; VBG pH 7.46 (7.32-7.43); VBG pO2 65 mmHg
[2021-05-13 20:53] LABS: D Dimer High Sensitivity 2165 NG/ML
[2021-05-13 21:15] LABS: Glucose, Whole Blood 131 mg/dL (60-115)
[2021-05-13] MEDS: propofoL 1,000 MG/100 ML VIAL 22.56 MG IVCONT (21:58)
[2021-05-13 22:04] LABS: Ferritin 2689 ng/mL (20-250)
--- NOTE | 2021-05-13 23:01 | PC.NURSE ---
Assumed care from Annetta RUIZ at 19:00. Patient had been intubated earlier in the afternoon, and continued on 50 of propofol gtt and 3 of versed gtt, and had had rocuronium about 18:30 per report. Upon assessment, patient was found to be flaccid, pupils very sluggish, equal, round, and reactive, no cough, no gag; sedation was successfully titrated down to 40 propofol gtt and 2 versed gtt, will continue to reassess. Patient with BP slightly elevated initially and on Levophed gtt was 0.03; titrated off, and was not well tolerated, so is currently at 0.01. BP with MAP >65, slightly soft, continues on IVF 100 cc/hour 1/2 NS. Heart sounds distant, murmur. Patient with temporary pacer with good capture, rate set at 58; output 8 mA, sensitivity 1.0 mV. Cordis to right IJ; peripheral 20 G to each forearem. Skin at feet was cool to touch with 1+ pulses, but bilateral upper extremities warm and radial pulses +2, with cap refill <2 seconds. Patient remains intubated with #7.5 ETT, 25 cm at the lip, AC/VC settings AC 16; VT 450; Peep 9; FiO2 90% (titrated down from 100%); Te about 7.7-7.9, required 1 ml of air added to ETT cuff for audible cuff leak, and RT was informed and in to assess cuff pressure. Breathes over slightly, non-tachypneic. Peak pressure 37-40. EtCO2 29-30. Sputum cx ordered, but unable to collect at this time, as patient has no inline secretions despite irrigation. Oral secretions slightly pink tinged. Patient with hypoactive BS, TF was restarted about 20:30 per PA after gastric residual was found to be 50 ccs; OGT placement confirmed, flushes with some resistance; PA aware, CXR from this afternoon without signs of kinking. Patient initially had high hourly urine output, PA aware, tapered off 75-100 cc/hour, pale yellow. 1+ edema to left ankle. SKin with reddened area to bridge of nose, blanchable. BUttocks with known Stage 1 and gluteal slit, barrier cream. Strictly minimizing repositioning per MD pro.
[2021-05-13 23:10] LABS: Venous Blood Gas Refer to POC result
[2021-05-14] VITALS (32 sets, daily range): BP systolic 90–148; BP diastolic 44–81; PULSE 58–89; RESP 11–35; TEMP 34–37.9; O2SAT 90–97; BMI 28.1
[2021-05-14] MEDS: 0.9 % Sodium Chloride Flush 3 ML SYRINGE IVFLUSH ×4 (00:53→23:26)
[2021-05-14] MEDS: propofoL 1,000 MG/100 ML VIAL 22.56 MG IVCONT ×2 (02:34→06:12)
[2021-05-14 02:54] LABS: Glucose, Whole Blood 116 mg/dL (60-115)
[2021-05-14 05:33] LABS: VBG Base Excess 17.4 mmol/L; VBG HCO3 42 mmol/L (22-26); VBG pCO2 53 mmHg; VBG pH 7.51 (7.32-7.43); VBG pO2 58 mmHg
[2021-05-14 05:41] LABS: Basophils Percent Auto 0.1 % (0-2); Eosinophils Percent Auto 0.3 % (0-4); Hematocrit 33.9 % (42.0-52.0); Hemoglobin 10.7 g/dl (14.0-18.0); Imm Gran Abs Auto 0.07 X10*3/uL (0.00-0.03); Imm Gran Pct Auto 0.7 % (0.0-0.4); Lymphocytes Absolute Auto 0.4 X10*3/uL (1.2-4.9); MANUAL DIFF FLAG SCAN; Mean Corpuscular HGB Conc 31.6 g/dl (31.0-36.0); Mean Corpuscular Hemoglobin 28.7 pg (27.0-33.0); Mean Corpuscular Volume 90.9 fL (80.0-98.0); Mean Platelet Volume 11.8 fL (9.4-12.4); Monocytes Absolute Auto 0.4 X10*3/uL (0.1-1.2); Monocytes Percent Auto 3.5 % (2-11); Neutrophils Absolute Auto 9.4 x10*3/uL (2.0-8.3); Neutrophils Percent Auto 91.4 % (45-73); Platelet Count 104 X10*3/uL (160-400); Red Blood Count 3.73 X10*6/uL (4.60-5.80); Red Cell Distribution Width 13.1 % (11.0-16.0); SCAN SMEAR FLAG 1; White Blood Count 10.3 X10*3/uL (4.8-10.8)
[2021-05-14 05:59] LABS: Albumin Level 2.3 g/dL (3.5-5.0)
[2021-05-14 06:03] LABS: Anion Gap 13 (12-20); Blood Urea Nitrogen 78 mg/dL (9-16); C Reactive Protein 11.08 mg/dL (< or = 0.50); Calcium 8.6 mg/dL (8.4-10.2); Carbon Dioxide 33 mmol/L (22-29); Chloride 102 mmol/L (96-108); Creatinine Clr Calc Pharmacy 65.5; Estimated Glomerular Filt Rate 54; Glucose Random 119 mg/dL (60-115); Lactate Dehydrogenase 368 U/L (118-273); Magnesium 2.2 mg/dL (1.6-2.6); Phosphorus 4.1 mg/dL (2.7-4.5); Potassium 4.9 mmol/L (3.3-5.1); Sodium 143 mmol/L (135-145)
[2021-05-14 06:07] LABS: SLIDE REVIEW VERIFIED
[2021-05-14] MEDS: Pantoprazole Sodium 40 MG/10 ML VIAL IVPUSH (06:11)
[2021-05-14 06:12] LABS: Glucose, Whole Blood 110 mg/dL (60-115)
[2021-05-14] MEDS: Midazolam HCl/NS 50 MG/50 ML PLAST..BAG IVCONT ×2 (06:12→17:11)
[2021-05-14 06:33] LABS: Venous Blood Gas Refer to POC result
[2021-05-14] MEDS: Apixaban 5 MG TABLET PO ×2 (07:46→20:59)
[2021-05-14] MEDS: dexAMETHasone sod phosphate 4 MG/ML VIAL IVPUSH (07:46)
[2021-05-14] MEDS: Chlorhexidine Gluc Oral Rinse 15 ML MOUTHWASH BUCCAL ×3 (07:46→20:59)
[2021-05-14] MEDS: Aspirin 81 MG TAB.CHEW PO (07:46)
[2021-05-14] MEDS: Nystatin Powder 15 GM BOTTLE 1 APPL TOPICAL ×3 (07:46→23:49)
[2021-05-14] MEDS: Sodium Chloride 0.45 % 1,000 ML 100 ML IVCONT (07:55)
[2021-05-14] MEDS: Albumin Human 25 % 100 ML IV ×2 (07:55→09:24)
--- NOTE | 2021-05-14 09:18 | P.PNNP_ITS ---
Subjective Subjective Date of Service: 05/14/21 Principal diagnosis: COVID, JÚNIOR, CKD Interval history: seen and examined vented Physical Exam Vital Signs: Vital Signs: Last Vital Signs Temp 97.5 F 05/14/21 09:00 Pulse 70 05/14/21 09:00 Resp 21 H 05/14/21 09:00 BP 117/60 05/14/21 09:00 Pulse Ox 93 05/14/21 09:00 Oxygen Flow Rate 15 04/28/21 21:37 BMI result Body Mass Index 28.1 Const: General: ill appearing HENMT: Head: Yes normocephalic and Yes atraumatic Neck: Neck: Yes supple Resp: Auscultation: diminished lung sounds Cardio: Heart sounds: S1 normal heart sound present and S2 normal heart sound present GI: Palpation (GI): Soft to palpation and nontender Extrem: General: Yes normal to inspection Objective Data Labs CBC & Chem 7: 05/14/21 05:22 05/14/21 05:22 Labs: Laboratory Results - last 24 hr 05/13/21 05/13/21 05/13/21 13:50 16:26 20:27 WBC RBC Hgb Hct MCV MCH MCHC RDW Plt Count MPV Immature Gran % (Auto) Neut % (Auto) Lymph % (Auto) [place] % (Auto) Eos % (Auto) Baso % (Auto) Lymph # (Auto) [place] # (Auto) Eos # (Auto) Baso # (Auto) Abs Immat Gran (auto) Absolute Neuts (auto) Absolute Nucleated RBC Nucleated RBC % (auto) Smear Tech's Comments D-Dimer High Sensitivty VBG pH VBG pCO2 VBG pO2 VBG HCO3 VBG O2 Saturation VBG Base Excess Sodium Potassium Chloride Carbon Dioxide Anion Gap BUN Creatinine Estim Creat Clear Calc Estimated GFR POC Glucose 135 H 159 H Random Glucose Calcium Phosphorus Magnesium Ferritin 2689 H Lactate Dehydrogenase C-Reactive Protein Albumin 05/13/21 05/13/21 05/13/21 20:27 20:28 20:37 WBC RBC Hgb Hct MCV MCH MCHC RDW Plt Count MPV Immature Gran % (Auto) Neut % (Auto) Lymph % (Auto) [place] % (Auto) Eos % (Auto) Baso % (Auto) Lymph # (Auto) [place] # (Auto) Eos # (Auto) Baso # (Auto) Abs Immat Gran (auto) Absolute Neuts (auto) Absolute Nucleated RBC Nucleated RBC % (auto) Smear Tech's Comments D-Dimer High Sensitivty 2165 VBG pH 7.46 H VBG pCO2 55 VBG pO2 65 VBG HCO3 39 H VBG O2 Saturation 90.0 VBG Base Excess 13.8 Sodium Potassium Chloride Carbon Dioxide Anion Gap BUN Creatinine Estim Creat Clear Calc Estimated GFR POC Glucose 131 H Random Glucose Calcium Phosphorus Magnesium Ferritin Lactate Dehydrogenase C-Reactive Protein Albumin 05/14/21 05/14/21 05/14/21 01:20 05:22 05:22 WBC 10.3 RBC 3.73 L Hgb 10.7 L Hct 33.9 L MCV 90.9 MCH 28.7 MCHC 31.6 RDW 13.1 Plt Count 104 L D MPV 11.8 Immature Gran % (Auto) 0.7 H Neut % (Auto) 91.4 H Lymph % (Auto) 4.0 L [place] % (Auto) 3.5 Eos % (Auto) 0.3 Baso % (Auto) 0.1 Lymph # (Auto) 0.4 L [place] # (Auto) 0.4 Eos # (Auto) 0.0 Baso # (Auto) 0.0 Abs Immat Gran (auto) 0.07 H Absolute Neuts (auto) 9.4 H Absolute Nucleated RBC 0.000 Nucleated RBC % (auto) 0.0 Smear Tech's Comments VERIFIED D-Dimer High Sensitivty VBG pH VBG pCO2 VBG pO2 VBG HCO3 VBG O2 Saturation VBG Base Excess Sodium 143 Potassium 4.9 Chloride 102 Carbon Dioxide 33 H Anion Gap 13 BUN 78 H Creatinine 1.32 Estim Creat Clear Calc 65.5 Estimated GFR 54 POC Glucose 116 H Random Glucose 119 H D Calcium 8.6 Phosphorus 4.1 Magnesium 2.2 Ferritin Lactate Dehydrogenase 368 H C-Reactive Protein 11.08 H Albumin 05/14/21 05/14/21 05/14/21 05:22 05:27 05:29 WBC RBC Hgb Hct MCV MCH MCHC RDW Plt Count MPV Immature Gran % (Auto) Neut % (Auto) Lymph % (Auto) [place] % (Auto) Eos % (Auto) Baso % (Auto) Lymph # (Auto) [place] # (Auto) Eos # (Auto) Baso # (Auto) Abs Immat Gran (auto) Absolute Neuts (auto) Absolute Nucleated RBC Nucleated RBC % (auto) Smear Tech's Comments D-Dimer High Sensitivty VBG pH 7.51 H VBG pCO2 53 VBG pO2 58 VBG HCO3 42 H VBG O2 Saturation 88.0 VBG Base Excess 17.4 Sodium Potassium Chloride Carbon Dioxide Anion Gap BUN Creatinine Estim Creat Clear Calc Estimated GFR POC Glucose 110 Random Glucose Calcium Phosphorus Magnesium Ferritin Lactate Dehydrogenase C-Reactive Protein Albumin 2.3 L D Microbiology Microbiology Results: Microbiology 04/28/21 22:17 Blood - Venous Blood Culture - Final No growth after 5 days. 04/28/21 22:17 Blood - Venous Blood Culture - Final No growth after 5 days. Procedures Date of Service Date of Service: 05/14/21 Assessment & Plan Assessment and plan (1) CKD (chronic kidney disease) stage 3, GFR 30-59 ml/min: Status: Acute (2) SARS-CoV-2 positive: Status: Acute Assessment and Plan: kidney function stable JÚNIOR due to compromised kidney perfusion in the setting of SARS COV 2 resolving known CKD 3 due to DM/HTN followed by Dr Gaston MORENO no need for IVF sodium zirconium as needed follow kidney function and electrolytes Time Spent With Patient Time: Total time spent is greater than 50% in coordination of care (as documented) at patient's floor/unit and/or counseling patient: Progress Note: Quality Stroke Does the patient have a stroke diagnosis?: No
[2021-05-14] MEDS: propofoL 1,000 MG/100 ML VIAL 28.2 MG IVCONT ×5 (10:36→23:25)
[2021-05-14] MEDS: fentaNYL citrate/PF 100 MCG/2 ML VIAL 50 MCG IVPUSH ×5 (10:50→22:10)
[2021-05-14 12:16] LABS: Glucose, Whole Blood 176 mg/dL (60-115)
[2021-05-14] MEDS: Insulin Lispro 100 UNIT/ML 3 ML VIAL SUBCUT ×2 (12:52→18:11)
--- NOTE | 2021-05-14 13:26 | P.PNCC_ITS ---
Subjective Subjective Date of Service: 05/14/21 Interval History: 66-year-old type 2 diabetic with chronic stage III renal disease which with the continued hydration and respiratory support continues to improve for the 1st time BUN and creatinine are dramatically improved as the days have gone by and he is tolerating his NG feedings which is the 1st time he has eaten in over 2 weeks at this point and very comfortable on the ventilator between propofol and midazolam drips and occasional pushes of fentanyl to keep him synchronous with the with the ventilator but of course because of poor lung compliance he intermittently alarms high-pressure even with very small volume but he is keeping his saturations in the mid 90s on FiO2 of 90% today remains afebrile with absolutely no sputum on suctioning Critical Care Time (minutes): 60 Physical Exam Vital Signs: Vital Signs: Last Vital Signs Temp 98.4 F 05/14/21 13:00 Pulse 68 05/14/21 13:00 Resp 19 05/14/21 13:00 BP 135/63 05/14/21 13:00 Pulse Ox 95 05/14/21 13:00 Oxygen Flow Rate 15 04/28/21 21:37 BMI result Body Mass Index 28.1 Sedated and intubated Bedside echo with normal LV RV function Abdomen soft no organomegaly Chest with coarse bilateral ventilatory sounds Skin intact Objective Data Labs CBC & Chem 7: 05/14/21 05:22 05/14/21 05:22 Labs: Laboratory Results - last 24 hr 05/13/21 05/13/21 05/13/21 13:50 16:26 20:27 WBC RBC Hgb Hct MCV MCH MCHC RDW Plt Count MPV Immature Gran % (Auto) Neut % (Auto) Lymph % (Auto) [place] % (Auto) Eos % (Auto) Baso % (Auto) Lymph # (Auto) [place] # (Auto) Eos # (Auto) Baso # (Auto) Abs Immat Gran (auto) Absolute Neuts (auto) Absolute Nucleated RBC Nucleated RBC % (auto) Smear Tech's Comments D-Dimer High Sensitivty VBG pH VBG pCO2 VBG pO2 VBG HCO3 VBG O2 Saturation VBG Base Excess Sodium Potassium Chloride Carbon Dioxide Anion Gap BUN Creatinine Estim Creat Clear Calc Estimated GFR POC Glucose 135 H 159 H Random Glucose Calcium Phosphorus Magnesium Ferritin 2689 H Lactate Dehydrogenase C-Reactive Protein Albumin 05/13/21 05/13/2121 20:27 20:28 20:37 WBC RBC Hgb Hct MCV MCH MCHC RDW Plt Count MPV Immature Gran % (Auto) Neut % (Auto) Lymph % (Auto) [place] % (Auto) Eos % (Auto) Baso % (Auto) Lymph # (Auto) [place] # (Auto) Eos # (Auto) Baso # (Auto) Abs Immat Gran (auto) Absolute Neuts (auto) Absolute Nucleated RBC Nucleated RBC % (auto) Smear Tech's Comments D-Dimer High Sensitivty 2165 VBG pH 7.46 H VBG pCO2 55 VBG pO2 65 VBG HCO3 39 H VBG O2 Saturation 90.0 VBG Base Excess 13.8 Sodium Potassium Chloride Carbon Dioxide Anion Gap BUN Creatinine Estim Creat Clear Calc Estimated GFR POC Glucose 131 H Random Glucose Calcium Phosphorus Magnesium Ferritin Lactate Dehydrogenase C-Reactive Protein Albumin 05/14/21 05/14/21 05/14/21 01:20 05:22 05:22 WBC 10.3 RBC 3.73 L Hgb 10.7 L Hct 33.9 L MCV 90.9 MCH 28.7 MCHC 31.6 RDW 13.1 Plt Count 104 L D MPV 11.8 Immature Gran % (Auto) 0.7 H Neut % (Auto) 91.4 H Lymph % (Auto) 4.0 L [place] % (Auto) 3.5 Eos % (Auto) 0.3 Baso % (Auto) 0.1 Lymph # (Auto) 0.4 L [place] # (Auto) 0.4 Eos # (Auto) 0.0 Baso # (Auto) 0.0 Abs Immat Gran (auto) 0.07 H Absolute Neuts (auto) 9.4 H Absolute Nucleated RBC 0.000 Nucleated RBC % (auto) 0.0 Smear Tech's Comments VERIFIED D-Dimer High Sensitivty VBG pH VBG pCO2 VBG pO2 VBG HCO3 VBG O2 Saturation VBG Base Excess Sodium 143 Potassium 4.9 Chloride 102 Carbon Dioxide 33 H Anion Gap 13 BUN 78 H Creatinine 1.32 Estim Creat Clear Calc 65.5 Estimated GFR 54 POC Glucose 116 H Random Glucose 119 H D Calcium 8.6 Phosphorus 4.1 Magnesium 2.2 Ferritin Lactate Dehydrogenase 368 H C-Reactive Protein 11.08 H Albumin 05/14/21 05/14/21 05/14/21 05:22 05:27 05:29 WBC RBC Hgb Hct MCV MCH MCHC RDW Plt Count MPV Immature Gran % (Auto) Neut % (Auto) Lymph % (Auto) [place] % (Auto) Eos % (Auto) Baso % (Auto) Lymph # (Auto) [place] # (Auto) Eos # (Auto) Baso # (Auto) Abs Immat Gran (auto) Absolute Neuts (auto) Absolute Nucleated RBC Nucleated RBC % (auto) Smear Tech's Comments D-Dimer High Sensitivty VBG pH 7.51 H VBG pCO2 53 VBG pO2 58 VBG HCO3 42 H VBG O2 Saturation 88.0 VBG Base Excess 17.4 Sodium Potassium Chloride Carbon Dioxide Anion Gap BUN Creatinine Estim Creat Clear Calc Estimated GFR POC Glucose 110 Random Glucose Calcium Phosphorus Magnesium Ferritin Lactate Dehydrogenase C-Reactive Protein Albumin 2.3 L D 05/14/21 12:10 WBC RBC Hgb Hct MCV MCH MCHC RDW Plt Count MPV Immature Gran % (Auto) Neut % (Auto) Lymph % (Auto) [place] % (Auto) Eos % (Auto) Baso % (Auto) Lymph # (Auto) [place] # (Auto) Eos # (Auto) Baso # (Auto) Abs Immat Gran (auto) Absolute Neuts (auto) Absolute Nucleated RBC Nucleated RBC % (auto) Smear Tech's Comments D-Dimer High Sensitivty VBG pH VBG pCO2 VBG pO2 VBG HCO3 VBG O2 Saturation VBG Base Excess Sodium Potassium Chloride Carbon Dioxide Anion Gap BUN Creatinine Estim Creat Clear Calc Estimated GFR POC Glucose 176 H Random Glucose Calcium Phosphorus Magnesium Ferritin Lactate Dehydrogenase C-Reactive Protein Albumin Microbiology Microbiology Results: Microbiology 05/13/21 Unknown Urine Catheterized - Camacho Catheter Urine Culture - Preliminary Gram negative cathy 04/28/21 22:17 Blood - Venous Blood Culture - Final No growth after 5 days. 04/28/21 22:17 Blood - Venous Blood Culture - Final No growth after 5 days. Progress Note: A&P Assessment and plan (1) JÚNIOR (acute kidney injury): Status: Acute (2) JÚNIOR (acute kidney injury): Status: Acute (3) SARS-CoV-2 positive: Status: Acute (4) ARDS (adult respiratory distress syndrome): Status: Acute (5) CKD (chronic kidney disease) stage 3, GFR 30-59 ml/min: Status: Acute (6) COVID-19 determined by clinical diagnostic criteria: Status: Acute (7) Mobitz (type) I (Wenckebach's) atrioventricular block: Status: Acute (8) Complete heart block: Status: Acute (9) Chronic renal failure: Status: Acute (10) Elevated troponin: Status: Acute (11) Acute kidney injury superimposed on CKD: Status: Acute (12) Elevated troponin: Status: Acute (13) CHF exacerbation: Status: Acute (14) Acute hypoxemic respiratory failure due to COVID-19: Status: Acute (15) Leg swelling: Status: Acute Assessment and Plan: Plan is of course to maintain comfortable ventilatory support and temporary pacemaker is in place intermittently sensing in the beautifully it will a skate with at a rate of 60 with 100% capture so that is all doing stably well as a backup mechanism and the plan the hope would be that we could wean his FiO2 a little bit of would like to give him a sedation holiday in the next 24 hours obviously still be too early to wean and continue surveillance for any veno bacterial issues Quality Stroke Does the patient have a stroke diagnosis?: No VTE Prior VTE?: No VTE Risk Level:: Medical - moderate - high VTE Device Contraindication: Treatment Not Indicated VTE Drug Contraindication: N/A - Med Ordered
[2021-05-14] MEDS: Albuterol/Iprat 2.5/0.5MG 3 ML AMPUL.NEB INHALE ×2 (15:40→19:56)
[2021-05-14] MEDS: Furosemide 20 MG/2 ML VIAL IVPUSH (16:45)
[2021-05-14 17:40] LABS: Glucose, Whole Blood 206 mg/dL (60-115)
--- NOTE | 2021-05-14 18:45 | PC.NURSE ---
afebrile, levophed started per emar, vss + cough gag, flaccid, sedated with propofol and versed. ls lear, vent settings remain the same. High peak pressures and incerased rr- fetanyl given and ivp lasix per emar. u/o wnl, pt repoed at toelrated, vpaced and 1 degree. Tube feed titrated up to max rate of 60ml/hr.
[2021-05-14] MEDS: Rocuronium Bromide 50 MG/5 ML VIAL IVPUSH ×2 (20:23→23:26)
[2021-05-14 20:44] LABS: D Dimer High Sensitivity 1855 NG/ML
[2021-05-14] MEDS: Atorvastatin Calcium 20 MG TABLET PO (20:59)
[2021-05-14] MEDS: Insulin Glargine,Hum.rec.anlog 100 UNIT/ML 10 ML VIAL 24 UNIT SUBCUT (20:59)
[2021-05-14 21:15] LABS: Glucose, Whole Blood 234 mg/dL (60-115)
[2021-05-14 23:25] LABS: Ferritin 2320 ng/mL (20-250)
[2021-05-14] MEDS: Sodium Chloride 0.45 % 1,000 ML 20 ML IVCONT (23:25)
[2021-05-15] VITALS (40 sets, daily range): BP systolic 76–191; BP diastolic 42–89; PULSE 71–125; RESP 8–26; TEMP 34.5–39; O2SAT 87–95; BMI 29.4
[2021-05-15] MEDS: Albuterol/Iprat 2.5/0.5MG 3 ML AMPUL.NEB INHALE ×5 (00:14→18:26)
[2021-05-15] MEDS: Furosemide 40 MG/4 ML VIAL IVPUSH ×2 (00:54→10:07)
[2021-05-15] MEDS: fentaNYL citrate/PF 100 MCG/2 ML VIAL 50 MCG IVPUSH (01:48)
[2021-05-15] MEDS: cefTRIAXone sodium 1 GM in 0.9 % Sodium Chloride 50 ML IV (02:36)
[2021-05-15] MEDS: propofoL 1,000 MG/100 ML VIAL 28.2 MG IVCONT ×7 (02:38→21:43)
[2021-05-15] MEDS: Rocuronium Bromide 50 MG/5 ML VIAL IVPUSH ×3 (02:55→07:19)
--- NOTE | 2021-05-15 04:16 | PC.NURSE ---
CARE ASSUMED 23:15...REMAINS TUBED/VENTED...SEDATED PROPOFOL/VERSED DRIPS..EPISODES OF ELEVATED PEAK AIRWAY PRESSURES...SUCTIONED BUT NO SPUTUM...PRN RORCURONIUM AND FENTANYL PER AUG ...REMAINS TEMPORARY PACER RIGHT JUGULAR SITE...RATE 58/MA 8/SENSITIVITY 1....PACER SENSES AND CAPTURES APPOPRIATELY..NSR 1ST-DEGREE BLOCK/PAC'S/OCASSIONAL V-PACED BEATS...HR TRENDING UP TO 100'S-110'S/SAO2 DECREASED TO 89-90%/MARKED JVD PRESENT...ICU PA AWARE...LASIX 40MG IV X1 GIVEN WITH MODERATE DIURESIS BUT DECREASED HR AND IMPROVED SAO2...TEMPERATURE 100.8-101.1...URINE CULTURE 05/13 REVIEWED WITH PA...CEFTRIAXONE 1 GRAM IV GIVEN...TUBE FEEDS REMAIN ON HOLD D/T PARALYTIC RX
[2021-05-15 05:23] LABS: VBG Base Excess 10.6 mmol/L; VBG HCO3 36 mmol/L (22-26); VBG pCO2 55 mmHg; VBG pH 7.42 (7.32-7.43); VBG pO2 58 mmHg
[2021-05-15 05:28] LABS: MANUAL DIFF FLAG NO
[2021-05-15 05:39] LABS: Basophils Percent Auto 0.1 % (0-2); Eosinophils Absolute Auto 0.1 X10*3/uL (0.0-0.4); Eosinophils Percent Auto 0.5 % (0-4); Hematocrit 37.5 % (42.0-52.0); Hemoglobin 11.7 g/dl (14.0-18.0); Imm Gran Pct Auto 1.4 % (0.0-0.4); Lymphocytes Absolute Auto 0.5 X10*3/uL (1.2-4.9); Lymphocytes Percent Auto 3.6 % (20-40); Mean Corpuscular HGB Conc 31.2 g/dl (31.0-36.0); Mean Corpuscular Hemoglobin 28.5 pg (27.0-33.0); Mean Corpuscular Volume 91.5 fL (80.0-98.0); Mean Platelet Volume 11.9 fL (9.4-12.4); Monocytes Absolute Auto 0.7 X10*3/uL (0.1-1.2); Monocytes Percent Auto 4.5 % (2-11); Neutrophils Absolute Auto 13.3 x10*3/uL (2.0-8.3); Neutrophils Percent Auto 89.9 % (45-73); Platelet Count 135 X10*3/uL (160-400); Red Cell Distribution Width 13.2 % (11.0-16.0); White Blood Count 14.8 X10*3/uL (4.8-10.8)
[2021-05-15] MEDS: Midazolam HCl/NS 50 MG/50 ML PLAST..BAG IVCONT ×2 (05:55→17:58)
[2021-05-15] MEDS: Pantoprazole Sodium 40 MG/10 ML VIAL IVPUSH (05:56)
[2021-05-15 05:57] LABS: Anion Gap 15 (12-20); Blood Urea Nitrogen 80 mg/dL (9-16); Calcium 8.8 mg/dL (8.4-10.2); Carbon Dioxide 32 mmol/L (22-29); Chloride 100 mmol/L (96-108); Creatinine Clr Calc Pharmacy 51.3; Estimated Glomerular Filt Rate 40; Glucose Random 257 mg/dL (60-115); Lactate Dehydrogenase 436 U/L (118-273); Magnesium 2.2 mg/dL (1.6-2.6); Phosphorus 4.1 mg/dL (2.7-4.5); Potassium 5.7 mmol/L (3.3-5.1); Sodium 141 mmol/L (135-145)
[2021-05-15 05:59] LABS: Troponin-I High Sensitivity 149.4 ng/L (<3.5-35.0)
[2021-05-15] MEDS: Insulin Lispro 100 UNIT/ML 3 ML VIAL SUBCUT ×3 (06:03→17:58)
[2021-05-15 06:23] LABS: Venous Blood Gas Refer to POC result
[2021-05-15 07:14] LABS: Albumin Level 3.1 g/dL (3.5-5.0)
--- NOTE | 2021-05-15 08:24 | PHA.PROG ---
Admission Date/Time: April 29, 2021 05:57 Indication: Other Weight in k.5 kg Adjusted body weight in Kg: [place] body weight in Kg: Obesity Dosing Indication % IBW: Serum Creatinine - Last 168 Hours 05/08/21 05/09/21 05/10/21 08:00 06:19 05:47 Creatinine 1.65 H 1.72 H 1.78 H 05/11/21 05/12/21 05/13/21 07:20 05:44 06:02 Creatinine 1.48 H 1.40 1.41 H 05/14/21 05/15/21 05:22 05:07 Creatinine 1.32 1.72 H Estimated CrCl and GFR - Last 168 Hours 05/08/21 05/09/21 05/10/21 08:00 06:19 05:47 Estim Creat Clear Calc 53.4 51.2 49.5 Estimated GFR 42 40 38 05/11/21 05/12/21 05/13/21 07:20 05:44 06:02 Estim Creat Clear Calc 59.1 62.4 62.2 Estimated GFR 48 51 50 05/14/21 05/15/21 05:22 05:07 Estim Creat Clear Calc 65.5 51.3 Estimated GFR 54 40 Vancomycin Loading Dose: 1500 mg Current Vancomycin Dosing Regimen: 1250mg q24h Vancomycin Monitoring using AUC goal of 400 - 600 range with trough as surrogate marker: auc 470, trough 14.8 Date and Time for next Vancomycin Level to be drawn: 05/17@1000 Pharmacist Comments on Vancomycin Plan: Plan is to draw trough after second dose to assess safety vs efficacy and adjust accordingly. Goal of load dose is to get to AUC faster Vancomycin dosing will take advantage of [employer] as a clinical decision support tool that uses Bayesian modeling to calculate individual patient's pharmacokinetic parameters and forecast the patient's drug concentration time course with the target goal AUC 24 range of 400 - 600 mg/L/hr.
[2021-05-15] MEDS: Albumin Human 25 % 100 ML IV ×3 (08:29→20:16)
[2021-05-15] MEDS: Piperacillin Sodium/Tazobactam 2.25 GM in 0.9 % Sodium Chloride 50 ML IV ×3 (08:29→20:16)
[2021-05-15] MEDS: dexAMETHasone sod phosphate 4 MG/ML VIAL IVPUSH (09:18)
[2021-05-15] MEDS: Chlorhexidine Gluc Oral Rinse 15 ML MOUTHWASH BUCCAL ×3 (09:18→20:49)
[2021-05-15] MEDS: Aspirin 81 MG TAB.CHEW PO (09:18)
[2021-05-15] MEDS: Apixaban 5 MG TABLET PO ×2 (09:18→20:50)
--- NOTE | 2021-05-15 09:56 | PM.PNNEP ---
Subjective Subjective Date of Service: 05/16/21 Principal diagnosis: COVID, JÚNIOR, CKD Interval history: Events noted Physical Exam Vital Signs: Vital Signs: Last Vital Signs Temp 101.1 F H 05/15/21 09:00 Pulse 100 05/15/21 09:00 Resp 25 H 05/15/21 09:00 BP 110/62 05/15/21 09:00 Pulse Ox 93 05/15/21 09:00 Oxygen Flow Rate 15 04/28/21 21:37 BMI result Body Mass Index 29.4 Neck: Neck: Yes supple Chest: Chest palpation & inspection: No rash Cardio: Palpation: no palpable S3 Neuro: Motor exam (neuro): No Asterixis during motor activity present Objective Data Labs CBC & Chem 7: 05/16/21 05:32 05/16/21 05:32 Labs: Laboratory Results - last 24 hr 05/14/21 05/14/21 05/14/21 12:10 17:36 20:09 WBC RBC Hgb Hct MCV MCH MCHC RDW Plt Count MPV Immature Gran % (Auto) Neut % (Auto) Lymph % (Auto) [place] % (Auto) Eos % (Auto) Baso % (Auto) Lymph # (Auto) [place] # (Auto) Eos # (Auto) Baso # (Auto) Abs Immat Gran (auto) Absolute Neuts (auto) Absolute Nucleated RBC Nucleated RBC % (auto) D-Dimer High Sensitivty VBG pH VBG pCO2 VBG pO2 VBG HCO3 VBG O2 Saturation VBG Base Excess Sodium Potassium Chloride Carbon Dioxide Anion Gap BUN Creatinine Estim Creat Clear Calc Estimated GFR POC Glucose 176 H 206 H Random Glucose Calcium Phosphorus Magnesium Ferritin 2320 H Lactate Dehydrogenase Troponin I High Sens Albumin 05/14/21 05/14/21 05/15/21 20:09 21:05 05:07 WBC 14.8 H RBC 4.10 L Hgb 11.7 L Hct 37.5 L MCV 91.5 MCH 28.5 MCHC 31.2 RDW 13.2 Plt Count 135 L D MPV 11.9 Immature Gran % (Auto) 1.4 H Neut % (Auto) 89.9 H Lymph % (Auto) 3.6 L [place] % (Auto) 4.5 Eos % (Auto) 0.5 Baso % (Auto) 0.1 Lymph # (Auto) 0.5 L [place] # (Auto) 0.7 Eos # (Auto) 0.1 Baso # (Auto) 0.0 Abs Immat Gran (auto) 0.20 H Absolute Neuts (auto) 13.3 H Absolute Nucleated RBC 0.000 Nucleated RBC % (auto) 0.0 D-Dimer High Sensitivty 1855 VBG pH VBG pCO2 VBG pO2 VBG HCO3 VBG O2 Saturation VBG Base Excess Sodium Potassium Chloride Carbon Dioxide Anion Gap BUN Creatinine Estim Creat Clear Calc Estimated GFR POC Glucose 234 H Random Glucose Calcium Phosphorus Magnesium Ferritin Lactate Dehydrogenase Troponin I High Sens Albumin 05/15/21 05/15/21 05/15/21 05:07 05:07 05:07 WBC RBC Hgb Hct MCV MCH MCHC RDW Plt Count MPV Immature Gran % (Auto) Neut % (Auto) Lymph % (Auto) [place] % (Auto) Eos % (Auto) Baso % (Auto) Lymph # (Auto) [place] # (Auto) Eos # (Auto) Baso # (Auto) Abs Immat Gran (auto) Absolute Neuts (auto) Absolute Nucleated RBC Nucleated RBC % (auto) D-Dimer High Sensitivty VBG pH VBG pCO2 VBG pO2 VBG HCO3 VBG O2 Saturation VBG Base Excess Sodium 141 Potassium 5.7 H Chloride 100 Carbon Dioxide 32 H Anion Gap 15 BUN 80 H Creatinine 1.72 H Estim Creat Clear Calc 51.3 Estimated GFR 40 POC Glucose Random Glucose 257 H D Calcium 8.8 Phosphorus 4.1 Magnesium 2.2 Ferritin Lactate Dehydrogenase 436 H Troponin I High Sens 149.4 H* Albumin 3.1 L D Cancelled 05/15/21 05:17 WBC RBC Hgb Hct MCV MCH MCHC RDW Plt Count MPV Immature Gran % (Auto) Neut % (Auto) Lymph % (Auto) [place] % (Auto) Eos % (Auto) Baso % (Auto) Lymph # (Auto) [place] # (Auto) Eos # (Auto) Baso # (Auto) Abs Immat Gran (auto) Absolute Neuts (auto) Absolute Nucleated RBC Nucleated RBC % (auto) D-Dimer High Sensitivty VBG pH 7.42 VBG pCO2 55 VBG pO2 58 VBG HCO3 36 H VBG O2 Saturation 86.0 VBG Base Excess 10.6 Sodium Potassium Chloride Carbon Dioxide Anion Gap BUN Creatinine Estim Creat Clear Calc Estimated GFR POC Glucose Random Glucose Calcium Phosphorus Magnesium Ferritin Lactate Dehydrogenase Troponin I High Sens Albumin Microbiology Microbiology Results: Microbiology 05/13/21 Unknown Urine Catheterized - Camacho Catheter Urine Culture - Final Serratia marcescens 04/28/21 22:17 Blood - Venous Blood Culture - Final No growth after 5 days. 04/28/21 22:17 Blood - Venous Blood Culture - Final No growth after 5 days. Procedures Date of Service Date of Service: 05/15/21 Assessment & Plan Assessment and plan (1) JÚNIOR (acute kidney injury): Status: Acute Assessment and Plan: (1) CKD (chronic kidney disease) stage 3, GFR 30-59 ml/min: ?Status:?Acute (2) SARS-CoV-2 positive: ?Status:?Acute ?Assessment and Plan: kidney function stable JÚNIOR due to compromised kidney perfusion in the setting of SARS COV 2 resolving known CKD 3 due to DM/HTN followed by Dr Gaston MORENO No need for IVF sodium zirconium as needed to correct hyperkalemia follow kidney function and electrolytes Time Spent With Patient Time with patient: 15 - 24 minutes Progress Note: Quality Stroke Does the patient have a stroke diagnosis?: No
[2021-05-15] MEDS: Nystatin Powder 15 GM BOTTLE 1 APPL TOPICAL ×3 (10:07→21:01)
[2021-05-15 10:46] LABS: Glucose, Whole Blood 241 mg/dL (60-115)
--- NOTE | 2021-05-15 11:40 | P.PNCC_ITS ---
Subjective Subjective Date of Service: 05/15/21 Interval History: 66-year-old gentleman with underlying history hypertension congestive heart failure, diabetes mellitus, COVID positive on 04/19/2021, admitted on 04/28/2021 with shortness of breath and hypoxemia. Patient treated with systemic glucocorticoids. hospital course significant for worsening hypoxemia requiring transfer to intensive care unit on 05/09/2021 and intubation on 05/13/2021, progressive acute kidney injury, and development of Mobitz type 2 block requiring placement of temporary pacer on 05/13/2021. Overnight febrile to 102, blood cultures sent, and started on broad-spectrum antibiotics. Also with poor ventilator synchrony requiring intermittent boluses of a paralytic agent. Critical Care Time (minutes): 60 Physical Exam Vital Signs: Vital Signs: Last Vital Signs Temp 100.8 F H 05/15/21 11:00 Pulse 99 05/15/21 11:00 Resp 24 H 05/15/21 11:00 BP 147/69 H 05/15/21 11:00 Pulse Ox 93 05/15/21 11:00 Oxygen Flow Rate 15 04/28/21 21:37 BMI result Body Mass Index 29.4 Const: General: no acute distress and other ( sedated on the vent) Eyes: Sclerae: sclerae normal Neck: Neck: Yes no lymphadenopathy, Yes trachea midline and Yes supple Resp: Auscultation: crackles ( diffuse bilateral) Cardio: Rate: tachycardic Rhythm: regular rhythm Heart sounds: no gallops, no murmurs and no rubs GI: Palpation (GI): Soft to palpation and Other GI palpation findings present ( Nontender) Auscultation: normal bowel sounds Extrem: General: No clubbing, No cyanosis and Yes pedal edema ( trace bilateral) Objective Data Labs CBC & Chem 7: 05/15/21 05:07 05/15/21 05:07 Labs: Laboratory Results - last 24 hr 05/14/21 05/14/21 05/14/21 12:10 17:36 20:09 WBC RBC Hgb Hct MCV MCH MCHC RDW Plt Count MPV Immature Gran % (Auto) Neut % (Auto) Lymph % (Auto) [place] % (Auto) Eos % (Auto) Baso % (Auto) Lymph # (Auto) [place] # (Auto) Eos # (Auto) Baso # (Auto) Abs Immat Gran (auto) Absolute Neuts (auto) Absolute Nucleated RBC Nucleated RBC % (auto) D-Dimer High Sensitivty VBG pH VBG pCO2 VBG pO2 VBG HCO3 VBG O2 Saturation VBG Base Excess Sodium Potassium Chloride Carbon Dioxide Anion Gap BUN Creatinine Estim Creat Clear Calc Estimated GFR POC Glucose 176 H 206 H Random Glucose Calcium Phosphorus Magnesium Ferritin 2320 H Lactate Dehydrogenase Troponin I High Sens Albumin 05/14/21 05/14/21 05/15/21 20:09 21:05 05:07 WBC 14.8 H RBC 4.10 L Hgb 11.7 L Hct 37.5 L MCV 91.5 MCH 28.5 MCHC 31.2 RDW 13.2 Plt Count 135 L D MPV 11.9 Immature Gran % (Auto) 1.4 H Neut % (Auto) 89.9 H Lymph % (Auto) 3.6 L [place] % (Auto) 4.5 Eos % (Auto) 0.5 Baso % (Auto) 0.1 Lymph # (Auto) 0.5 L [place] # (Auto) 0.7 Eos # (Auto) 0.1 Baso # (Auto) 0.0 Abs Immat Gran (auto) 0.20 H Absolute Neuts (auto) 13.3 H Absolute Nucleated RBC 0.000 Nucleated RBC % (auto) 0.0 D-Dimer High Sensitivty 1855 VBG pH VBG pCO2 VBG pO2 VBG HCO3 VBG O2 Saturation VBG Base Excess Sodium Potassium Chloride Carbon Dioxide Anion Gap BUN Creatinine Estim Creat Clear Calc Estimated GFR POC Glucose 234 H Random Glucose Calcium Phosphorus Magnesium Ferritin Lactate Dehydrogenase Troponin I High Sens Albumin 05/15/21 05/15/21 05/15/21 05:07 05:07 05:07 WBC RBC Hgb Hct MCV MCH MCHC RDW Plt Count MPV Immature Gran % (Auto) Neut % (Auto) Lymph % (Auto) [place] % (Auto) Eos % (Auto) Baso % (Auto) Lymph # (Auto) [place] # (Auto) Eos # (Auto) Baso # (Auto) Abs Immat Gran (auto) Absolute Neuts (auto) Absolute Nucleated RBC Nucleated RBC % (auto) D-Dimer High Sensitivty VBG pH VBG pCO2 VBG pO2 VBG HCO3 VBG O2 Saturation VBG Base Excess Sodium 141 Potassium 5.7 H Chloride 100 Carbon Dioxide 32 H Anion Gap 15 BUN 80 H Creatinine 1.72 H Estim Creat Clear Calc 51.3 Estimated GFR 40 POC Glucose Random Glucose 257 H D Calcium 8.8 Phosphorus 4.1 Magnesium 2.2 Ferritin Lactate Dehydrogenase 436 H Troponin I High Sens 149.4 H* Albumin 3.1 L D Cancelled 05/15/21 05/15/21 05:17 05:59 WBC RBC Hgb Hct MCV MCH MCHC RDW Plt Count MPV Immature Gran % (Auto) Neut % (Auto) Lymph % (Auto) [place] % (Auto) Eos % (Auto) Baso % (Auto) Lymph # (Auto) [place] # (Auto) Eos # (Auto) Baso # (Auto) Abs Immat Gran (auto) Absolute Neuts (auto) Absolute Nucleated RBC Nucleated RBC % (auto) D-Dimer High Sensitivty VBG pH 7.42 VBG pCO2 55 VBG pO2 58 VBG HCO3 36 H VBG O2 Saturation 86.0 VBG Base Excess 10.6 Sodium Potassium Chloride Carbon Dioxide Anion Gap BUN Creatinine Estim Creat Clear Calc Estimated GFR POC Glucose 241 H Random Glucose Calcium Phosphorus Magnesium Ferritin Lactate Dehydrogenase Troponin I High Sens Albumin Microbiology Microbiology Results: Microbiology 05/13/21 Unknown Urine Catheterized - Camacho Catheter Urine Culture - Final Serratia marcescens 04/28/21 22:17 Blood - Venous Blood Culture - Final No growth after 5 days. 04/28/21 22:17 Blood - Venous Blood Culture - Final No growth after 5 days. Progress Note: A&P Assessment and plan (1) JÚNIOR (acute kidney injury): Status: Acute (2) ARDS (adult respiratory distress syndrome): Status: Acute (3) CKD (chronic kidney disease) stage 3, GFR 30-59 ml/min: Status: Acute (4) Acute hypoxemic respiratory failure due to COVID-19: Status: Acute (5) Mobitz (type) I (Wenckebach's) atrioventricular block: Status: Acute (6) Type 2 diabetes mellitus: Status: Acute (7) CHF (congestive heart failure): Status: Acute Assessment and Plan: Assessment: 66-year-old gentleman with underlying history of hypertension, CHF, diabetes mellitus admitted with acute hypoxic respiratory failure secondary to COVID-19 ARDS, requiring ventilatory support and further complicated by acute renal failure and chronotropic insufficiency Plan: Neuro: No acute issues. Cardiac: Mobitz type 2 status post temporary pacemaker. Now tachycardic. Also underlying congestive heart failure. Cardiology service care appreciated. Will continue to maintain euvolemia and reassess for possibility of permanent pacemaker, if COVID ARDS improves. Pulmonary: Acute hypoxic respiratory failure secondary to COVID-19 ARDS now requiring ventilatory support. Continue to titrate off ventilatory support as tolerated. Renal: Acute renal failure on the background of chronic kidney disease, likely secondary to COVID-19. Nephrology service care appreciated. Now with hyperkalemia. Continue to monitor electrolytes, renal indices, and urine output. May require dialysis. Endo: No acute issues. GI: No acute issues. ID: No acute issues Heme/Onc: No acute issues. Psych: No acute issues. Miscellaneous: No acute issues. Prophylaxis: Lovenox Diet: tube feeds Critical care time spent: 60 minutes Quality Stroke Does the patient have a stroke diagnosis?: No VTE Prior VTE?: No VTE Risk Level:: Medical - moderate - high VTE Device Contraindication: Treatment Not Indicated VTE Drug Contraindication: N/A - Med Ordered
[2021-05-15] MEDS: vancomycin HCL 1,500 MG in 0.9 % Sodium Chloride 500 ML 333.33 MG IV (11:44)
[2021-05-15 11:55] LABS: Glucose, Whole Blood 237 mg/dL (60-115)
--- NOTE | 2021-05-15 11:58 | P.CDIC_ITS ---
CDI Concurrent Query Documentation Clarification: PHYSICIAN'S DOCUMENTATION REQUEST Date of Query: 05/15/21 1159 Patient Name: Vane Roberson Admit Date: 04/29/21 Dear Doctor, A review of the medical record indicates additional documentation may be needed. Please review below and update the documentation accordingly. Clinical Indicators: Risk Factors/Clinical Indicators/Treatments PN: 05/09 - CHF - no exacerbation. BNP 130 H IV Furosemide given in the ED then given IV fluids. TTE - EF 59% mild pulmonary hypertension. PN ICU 05/11 - Acute Congestive heart failure. BNP 523 H Please provide further specificity regarding the most likely type and acuity of CHF you are evaluating, treating, or monitoring. Examples include: Type: * Systolic * Diastolic * Combined Systolic/Diastolic * Other ? please specify * Unable to determine Acuity: * Acute * Chronic * Acute on chronic * Unable to determine Use of terms such as suspected, likely, concern for, or probable (associated with a specific diagnosis that is being evaluated, monitored, or treated as if it exists) are acceptable and can be coded in the inpatient setting, when documented at the time of discharge. Thank you, Daphney Person [facility], CDIS Extension: [phone] Please use your independent medical judgment in providing your response. THIS QUERY IS PART OF THE PERMANENT MEDICAL RECORD Provider Response: Acute Diastolic CHF
[2021-05-15 12:37] LABS: HIT-Patient Optical Density 0.084 OD UNITS (<OR= 0.300); Heparin Induced Plt Ab NEGATIVE (NEGATIVE)
[2021-05-15 13:59] LABS: Anion Gap 18 (12-20); Blood Urea Nitrogen 84 mg/dL (9-16); Calcium 8.8 mg/dL (8.4-10.2); Carbon Dioxide 28 mmol/L (22-29); Chloride 101 mmol/L (96-108); Creatinine Clr Calc Pharmacy 42.8; Estimated Glomerular Filt Rate 32; Glucose Random 251 mg/dL (60-115); Potassium 5.7 mmol/L (3.3-5.1); Sodium 141 mmol/L (135-145)
--- NOTE | 2021-05-15 14:45 | MHC.CM.PN ---
Pt continues in ICU on ventilatory support secondary to COVID: Fever and elevated WBC: cx pending: No plans to initiate vent weaning trials at this time CM to follow for d/c planning
[2021-05-15] MEDS: Lactulose 20 GM/30 ML SOLUTION 30 GM PO (15:16)
[2021-05-15 17:54] LABS: Glucose, Whole Blood 308 mg/dL (60-115)
[2021-05-15 18:35] LABS: Anion Gap 15 (12-20); Blood Urea Nitrogen 83 mg/dL (9-16); Calcium 8.8 mg/dL (8.4-10.2); Carbon Dioxide 30 mmol/L (22-29); Chloride 104 mmol/L (96-108); Creatinine Clr Calc Pharmacy 42.6; Estimated Glomerular Filt Rate 32; Glucose Random 311 mg/dL (60-115); Potassium 5.6 mmol/L (3.3-5.1); Sodium 143 mmol/L (135-145)
[2021-05-15] MEDS: Atorvastatin Calcium 20 MG TABLET PO (20:49)
[2021-05-15] MEDS: Insulin Glargine,Hum.rec.anlog 100 UNIT/ML 10 ML VIAL 24 UNIT SUBCUT (20:50)
[2021-05-16] VITALS (32 sets, daily range): BP systolic 85–149; BP diastolic 44–69; PULSE 80–103; RESP 15–30; TEMP 34.9–39; O2SAT 87–96; BMI 29.0
[2021-05-16 00:18] LABS: Glucose, Whole Blood 163 mg/dL (60-115)
[2021-05-16] MEDS: Albuterol/Iprat 2.5/0.5MG 3 ML AMPUL.NEB INHALE ×5 (00:29→23:59)
[2021-05-16] MEDS: Insulin Lispro 100 UNIT/ML 3 ML VIAL SUBCUT ×4 (00:54→17:31)
[2021-05-16] MEDS: Albumin Human 25 % 100 ML IV (00:55)
[2021-05-16] MEDS: 0.9 % Sodium Chloride Flush 3 ML SYRINGE IVFLUSH ×2 (00:55→07:56)
[2021-05-16] MEDS: propofoL 1,000 MG/100 ML VIAL 22.56 MG IVCONT (01:28)
[2021-05-16] MEDS: Piperacillin Sodium/Tazobactam 2.25 GM in 0.9 % Sodium Chloride 50 ML IV ×2 (03:06→07:55)
[2021-05-16] MEDS: propofoL 1,000 MG/100 ML VIAL 28.2 MG IVCONT ×6 (04:30→21:13)
[2021-05-16] MEDS: Pantoprazole Sodium 40 MG/10 ML VIAL IVPUSH (05:26)
[2021-05-16 05:34] LABS: Glucose, Whole Blood 158 mg/dL (60-115)
[2021-05-16] MEDS: Midazolam HCl/NS 50 MG/50 ML PLAST..BAG IVCONT ×2 (05:41→17:29)
[2021-05-16 05:43] LABS: VBG HCO3 38 mmol/L (22-26); VBG pCO2 54 mmHg; VBG pH 7.46 (7.32-7.43); VBG pO2 67 mmHg
[2021-05-16 05:44] LABS: Venous Blood Gas Refer to POC result
[2021-05-16 06:00] LABS: MANUAL DIFF FLAG NO
[2021-05-16 06:05] LABS: Basophils Percent Auto 0.1 % (0-2); Eosinophils Absolute Auto 0.2 X10*3/uL (0.0-0.4); Eosinophils Percent Auto 1.6 % (0-4); Hematocrit 31.2 % (42.0-52.0); Hemoglobin 9.6 g/dl (14.0-18.0); Imm Gran Abs Auto 0.14 X10*3/uL (0.00-0.03); Imm Gran Pct Auto 1.2 % (0.0-0.4); Lymphocytes Absolute Auto 0.9 X10*3/uL (1.2-4.9); Lymphocytes Percent Auto 7.5 % (20-40); Mean Corpuscular HGB Conc 30.8 g/dl (31.0-36.0); Mean Corpuscular Hemoglobin 28.2 pg (27.0-33.0); Mean Corpuscular Volume 91.8 fL (80.0-98.0); Monocytes Absolute Auto 0.5 X10*3/uL (0.1-1.2); Neutrophils Absolute Auto 10.2 x10*3/uL (2.0-8.3); Neutrophils Percent Auto 85.6 % (45-73); Platelet Count 103 X10*3/uL (160-400); Red Cell Distribution Width 13.4 % (11.0-16.0); White Blood Count 11.9 X10*3/uL (4.8-10.8)
[2021-05-16 06:43] LABS: Alanine Aminotransferase 18 U/L (0-40); Albumin Level 3.5 g/dL (3.5-5.0); Alkaline Phosphatase 47 U/L (39-117); Anion Gap 14 (12-20); Aspartate Amino Transferase 27 U/L (5-37); Bilirubin Total 1.2 mg/dL (0.0-1.0); Blood Urea Nitrogen 75 mg/dL (9-16); Calcium 8.9 mg/dL (8.4-10.2); Carbon Dioxide 33 mmol/L (22-29); Chloride 105 mmol/L (96-108); Creatinine Clr Calc Pharmacy 50.4; Estimated Glomerular Filt Rate 39; Glucose Random 166 mg/dL (60-115); Magnesium 2.1 mg/dL (1.6-2.6); Phosphorus 3.7 mg/dL (2.7-4.5); Sodium 147 mmol/L (135-145); Total Protein 5.6 g/dL (6.5-8.0)
[2021-05-16 06:50] LABS: OBS Int Ctl Valid YES; OBS1 POSITIVE (NEGATIVE)
[2021-05-16] MEDS: Chlorhexidine Gluc Oral Rinse 15 ML MOUTHWASH BUCCAL ×3 (07:55→19:57)
[2021-05-16] MEDS: Nystatin Powder 15 GM BOTTLE 1 APPL TOPICAL ×3 (07:56→19:57)
--- NOTE | 2021-05-16 10:05 | PM.PNNEP ---
Subjective Subjective Date of Service: 05/17/21 Principal diagnosis: COVID, JÚNIOR, CKD Interval history: Events noted Physical Exam Vital Signs: Vital Signs: Last Vital Signs Temp 100.2 F 05/16/21 09:00 Pulse 90 05/16/21 09:00 Resp 25 H 05/16/21 09:00 BP 116/58 L 05/16/21 09:00 Pulse Ox 91 L 05/16/21 09:00 Oxygen Flow Rate 15 04/28/21 21:37 BMI result Body Mass Index 29.0 Neck: Neck: Yes supple Chest: Chest palpation & inspection: No rash Cardio: Palpation: no palpable S3 Neuro: Motor exam (neuro): No Asterixis during motor activity present Objective Data Labs CBC & Chem 7: 05/17/21 05:35 05/17/21 05:35 Labs: Laboratory Results - last 24 hr 05/14/21 05/15/21 05/15/21 08:16 05:59 11:45 WBC RBC Hgb Hct MCV MCH MCHC RDW Plt Count MPV Immature Gran % (Auto) Neut % (Auto) Lymph % (Auto) [place] % (Auto) Eos % (Auto) Baso % (Auto) Lymph # (Auto) [place] # (Auto) Eos # (Auto) Baso # (Auto) Abs Immat Gran (auto) Absolute Neuts (auto) Absolute Nucleated RBC Nucleated RBC % (auto) Hep-Ind Thrombocytop Com See Below VBG pH VBG pCO2 VBG pO2 VBG HCO3 VBG O2 Saturation VBG Base Excess Sodium Potassium Chloride Carbon Dioxide Anion Gap BUN Creatinine Estim Creat Clear Calc Estimated GFR POC Glucose 241 H 237 H Random Glucose Calcium Phosphorus Magnesium Total Bilirubin AST ALT Alkaline Phosphatase Total Protein Albumin Stool Occult Blood Heparin Dep Plt Ab OD 0.084 Hep-Induced Plt Ab [place] NEGATIVE 05/15/21 05/15/21 05/15/21 12:26 17:51 17:59 WBC RBC Hgb Hct MCV MCH MCHC RDW Plt Count MPV Immature Gran % (Auto) Neut % (Auto) Lymph % (Auto) [place] % (Auto) Eos % (Auto) Baso % (Auto) Lymph # (Auto) [place] # (Auto) Eos # (Auto) Baso # (Auto) Abs Immat Gran (auto) Absolute Neuts (auto) Absolute Nucleated RBC Nucleated RBC % (auto) Hep-Ind Thrombocytop Com VBG pH VBG pCO2 VBG pO2 VBG HCO3 VBG O2 Saturation VBG Base Excess Sodium 141 143 Potassium 5.7 H 5.6 H Chloride 101 104 Carbon Dioxide 28 30 H Anion Gap 18 15 BUN 84 H 83 H Creatinine 2.06 H 2.07 H Estim Creat Clear Calc 42.8 42.6 Estimated GFR 32 32 POC Glucose 308 H Random Glucose 251 H 311 H Calcium 8.8 8.8 Phosphorus Magnesium Total Bilirubin AST ALT Alkaline Phosphatase Total Protein Albumin Stool Occult Blood Heparin Dep Plt Ab OD Hep-Induced Plt Ab [place] 05/16/21 05/16/21 05/16/21 00:13 05:31 05:32 WBC 11.9 H RBC 3.40 L Hgb 9.6 L Hct 31.2 L MCV 91.8 MCH 28.2 MCHC 30.8 L RDW 13.4 Plt Count 103 L MPV 12.0 Immature Gran % (Auto) 1.2 H Neut % (Auto) 85.6 H Lymph % (Auto) 7.5 L [place] % (Auto) 4.0 Eos % (Auto) 1.6 Baso % (Auto) 0.1 Lymph # (Auto) 0.9 L [place] # (Auto) 0.5 Eos # (Auto) 0.2 Baso # (Auto) 0.0 Abs Immat Gran (auto) 0.14 H Absolute Neuts (auto) 10.2 H Absolute Nucleated RBC 0.000 Nucleated RBC % (auto) 0.0 Hep-Ind Thrombocytop Com VBG pH VBG pCO2 VBG pO2 VBG HCO3 VBG O2 Saturation VBG Base Excess Sodium Potassium Chloride Carbon Dioxide Anion Gap BUN Creatinine Estim Creat Clear Calc Estimated GFR POC Glucose 163 H 158 H Random Glucose Calcium Phosphorus Magnesium Total Bilirubin AST ALT Alkaline Phosphatase Total Protein Albumin Stool Occult Blood Heparin Dep Plt Ab OD Hep-Induced Plt Ab [place] 05/16/21 05/16/21 05/16/21 05:32 05:36 06:00 WBC RBC Hgb Hct MCV MCH MCHC RDW Plt Count MPV Immature Gran % (Auto) Neut % (Auto) Lymph % (Auto) [place] % (Auto) Eos % (Auto) Baso % (Auto) Lymph # (Auto) [place] # (Auto) Eos # (Auto) Baso # (Auto) Abs Immat Gran (auto) Absolute Neuts (auto) Absolute Nucleated RBC Nucleated RBC % (auto) Hep-Ind Thrombocytop Com VBG pH 7.46 H VBG pCO2 54 VBG pO2 67 VBG HCO3 38 H VBG O2 Saturation 91.0 VBG Base Excess 13.0 Sodium 147 H Potassium 5.0 Chloride 105 Carbon Dioxide 33 H Anion Gap 14 BUN 75 H Creatinine 1.74 H Estim Creat Clear Calc 50.4 Estimated GFR 39 POC Glucose Random Glucose 166 H D Calcium 8.9 Phosphorus 3.7 Magnesium 2.1 Total Bilirubin 1.2 H AST 27 ALT 18 Alkaline Phosphatase 47 D Total Protein 5.6 L Albumin 3.5 Stool Occult Blood POSITIVE Heparin Dep Plt Ab OD Hep-Induced Plt Ab [place] Microbiology Microbiology Results: Microbiology 05/13/21 Unknown Urine Catheterized - Camacho Catheter Urine Culture - Final Serratia marcescens 04/28/21 22:17 Blood - Venous Blood Culture - Final No growth after 5 days. 04/28/21 22:17 Blood - Venous Blood Culture - Final No growth after 5 days. Procedures Date of Service Date of Service: 05/16/21 Assessment & Plan Assessment and plan (1) JÚNIOR (acute kidney injury): Status: Inactive Assessment and Plan: (1) CKD (chronic kidney disease) stage 3, GFR 30-59 ml/min: ?Status:?Acute (2) SARS-CoV-2 positive: ?Status:?Acute ?Assessment and Plan: JÚNIOR due to compromised kidney perfusion in the setting of SARS COV 2 Cr is trending down known CKD 3 due to DM/HTN followed by Dr Gaston MORENO sodium zirconium as needed to correct hyperkalemia follow kidney function and electrolytes Time Spent With Patient Time: Total time spent is greater than 50% in coordination of care (as documented) at patient's floor/unit and/or counseling patient: Time with patient: 15 - 24 minutes Progress Note: Quality Stroke Does the patient have a stroke diagnosis?: No
--- NOTE | 2021-05-16 11:17 | P.PNCC_ITS ---
Subjective Subjective Date of Service: 05/16/21 Interval History: 66-year-old gentleman with underlying history hypertension congestive heart failure, diabetes mellitus, COVID positive on 04/19/2021, admitted on 04/28/2021 with shortness of breath and hypoxemia. Patient treated with systemic glucocorticoids. hospital course significant for worsening hypoxemia requiring transfer to intensive care unit on 05/09/2021 and intubation on 05/13/2021, progressive acute kidney injury, and development of Mobitz type 2 block requiring placement of temporary pacer on 05/13/2021. Overnight night with several episodes of maroon stool and 2 g drop of hemoglobin. Apixaban, Eliquis, and dexamethasone stopped. With improvement in hyperkalemia and creatinine clearance. Critical Care Time (minutes): 45 Physical Exam Vital Signs: Vital Signs: Last Vital Signs Temp 100.4 F 05/16/21 11:00 Pulse 85 05/16/21 11:00 Resp 24 H 05/16/21 11:00 BP 149/64 H 05/16/21 11:00 Pulse Ox 92 05/16/21 11:00 Oxygen Flow Rate 15 04/28/21 21:37 BMI result Body Mass Index 29.0 Const: General: no acute distress and other ( Sedated on the vent) Eyes: Sclerae: sclerae normal EOM: EOMs intact bilaterally Neck: Neck: Yes no lymphadenopathy, Yes trachea midline and Yes supple Resp: Auscultation: crackles ( diffuse bilateral) Cardio: Rate: regular rate Rhythm: regular rhythm Heart sounds: no gallops, no murmurs and no rubs GI: Palpation (GI): Soft to palpation and Other GI palpation findings present ( Nontender) Auscultation: normal bowel sounds Extrem: General: No clubbing, No cyanosis and Yes pedal edema ( 1+ bilateral) Objective Data Labs CBC & Chem 7: 05/16/21 05:32 05/16/21 05:32 Labs: Laboratory Results - last 24 hr 05/14/21 05/15/21 05/15/21 08:16 11:45 12:26 WBC RBC Hgb Hct MCV MCH MCHC RDW Plt Count MPV Immature Gran % (Auto) Neut % (Auto) Lymph % (Auto) [place] % (Auto) Eos % (Auto) Baso % (Auto) Lymph # (Auto) [place] # (Auto) Eos # (Auto) Baso # (Auto) Abs Immat Gran (auto) Absolute Neuts (auto) Absolute Nucleated RBC Nucleated RBC % (auto) Hep-Ind Thrombocytop Com See Below VBG pH VBG pCO2 VBG pO2 VBG HCO3 VBG O2 Saturation VBG Base Excess Sodium 141 Potassium 5.7 H Chloride 101 Carbon Dioxide 28 Anion Gap 18 BUN 84 H Creatinine 2.06 H Estim Creat Clear Calc 42.8 Estimated GFR 32 POC Glucose 237 H Random Glucose 251 H Calcium 8.8 Phosphorus Magnesium Total Bilirubin AST ALT Alkaline Phosphatase Total Protein Albumin Stool Occult Blood Heparin Dep Plt Ab OD 0.084 Hep-Induced Plt Ab [place] NEGATIVE 05/15/21 05/15/21 05/16/21 17:51 17:59 00:13 WBC RBC Hgb Hct MCV MCH MCHC RDW Plt Count MPV Immature Gran % (Auto) Neut % (Auto) Lymph % (Auto) [place] % (Auto) Eos % (Auto) Baso % (Auto) Lymph # (Auto) [place] # (Auto) Eos # (Auto) Baso # (Auto) Abs Immat Gran (auto) Absolute Neuts (auto) Absolute Nucleated RBC Nucleated RBC % (auto) Hep-Ind Thrombocytop Com VBG pH VBG pCO2 VBG pO2 VBG HCO3 VBG O2 Saturation VBG Base Excess Sodium 143 Potassium 5.6 H Chloride 104 Carbon Dioxide 30 H Anion Gap 15 BUN 83 H Creatinine 2.07 H Estim Creat Clear Calc 42.6 Estimated GFR 32 POC Glucose 308 H 163 H Random Glucose 311 H Calcium 8.8 Phosphorus Magnesium Total Bilirubin AST ALT Alkaline Phosphatase Total Protein Albumin Stool Occult Blood Heparin Dep Plt Ab OD Hep-Induced Plt Ab [place] 05/16/21 05/16/21 05/16/21 05:31 05:32 05:32 WBC 11.9 H RBC 3.40 L Hgb 9.6 L Hct 31.2 L MCV 91.8 MCH 28.2 MCHC 30.8 L RDW 13.4 Plt Count 103 L MPV 12.0 Immature Gran % (Auto) 1.2 H Neut % (Auto) 85.6 H Lymph % (Auto) 7.5 L [place] % (Auto) 4.0 Eos % (Auto) 1.6 Baso % (Auto) 0.1 Lymph # (Auto) 0.9 L [place] # (Auto) 0.5 Eos # (Auto) 0.2 Baso # (Auto) 0.0 Abs Immat Gran (auto) 0.14 H Absolute Neuts (auto) 10.2 H Absolute Nucleated RBC 0.000 Nucleated RBC % (auto) 0.0 Hep-Ind Thrombocytop Com VBG pH VBG pCO2 VBG pO2 VBG HCO3 VBG O2 Saturation VBG Base Excess Sodium 147 H Potassium 5.0 Chloride 105 Carbon Dioxide 33 H Anion Gap 14 BUN 75 H Creatinine 1.74 H Estim Creat Clear Calc 50.4 Estimated GFR 39 POC Glucose 158 H Random Glucose 166 H D Calcium 8.9 Phosphorus 3.7 Magnesium 2.1 Total Bilirubin 1.2 H AST 27 ALT 18 Alkaline Phosphatase 47 D Total Protein 5.6 L Albumin 3.5 Stool Occult Blood Heparin Dep Plt Ab OD Hep-Induced Plt Ab [place] 05/16/21 05/16/21 05:36 06:00 WBC RBC Hgb Hct MCV MCH MCHC RDW Plt Count MPV Immature Gran % (Auto) Neut % (Auto) Lymph % (Auto) [place] % (Auto) Eos % (Auto) Baso % (Auto) Lymph # (Auto) [place] # (Auto) Eos # (Auto) Baso # (Auto) Abs Immat Gran (auto) Absolute Neuts (auto) Absolute Nucleated RBC Nucleated RBC % (auto) Hep-Ind Thrombocytop Com VBG pH 7.46 H VBG pCO2 54 VBG pO2 67 VBG HCO3 38 H VBG O2 Saturation 91.0 VBG Base Excess 13.0 Sodium Potassium Chloride Carbon Dioxide Anion Gap BUN Creatinine Estim Creat Clear Calc Estimated GFR POC Glucose Random Glucose Calcium Phosphorus Magnesium Total Bilirubin AST ALT Alkaline Phosphatase Total Protein Albumin Stool Occult Blood POSITIVE Heparin Dep Plt Ab OD Hep-Induced Plt Ab [place] Microbiology Microbiology Results: Microbiology 05/15/21 08:25 Blood - Venous Blood Culture - Preliminary No growth after 24 hours. 05/15/21 08:25 Blood - Venous Blood Culture - Preliminary No growth after 24 hours. 05/13/21 Unknown Urine Catheterized - Camacho Catheter Urine Culture - Final Serratia marcescens 04/28/21 22:17 Blood - Venous Blood Culture - Final No growth after 5 days. 04/28/21 22:17 Blood - Venous Blood Culture - Final No growth after 5 days. Progress Note: A&P Assessment and plan (1) CHF (congestive heart failure): Status: Acute (2) Type 2 diabetes mellitus: Status: Acute (3) ARDS (adult respiratory distress syndrome): Status: Acute (4) Acute hypoxemic respiratory failure due to COVID-19: Status: Acute (5) Acute kidney injury superimposed on CKD: Status: Acute (6) Mobitz (type) I (Wenckebach's) atrioventricular block: Status: Acute Assessment and Plan: Assessment: 66-year-old gentleman with underlying history of hypertension, CHF, diabetes mellitus admitted with acute hypoxic respiratory failure secondary to COVID-19 ARDS, requiring ventilatory support and further complicated by acute renal failure and chronotropic insufficiency Plan: Neuro: No acute issues. Cardiac: Mobitz type 2 status post temporary pacemaker. Now tachycardic. Also underlying congestive heart failure. Cardiology service care appreciated. Will continue to maintain euvolemia and reassess for possibility of permanent pacemaker, if COVID ARDS improves. Continue with judicious diuresis. Pulmonary: Acute hypoxic respiratory failure secondary to COVID-19 ARDS now requiring ventilatory support. Continue to titrate off ventilatory support as tolerated. Renal: Acute renal failure on the background of chronic kidney disease, likely secondary to COVID-19. Nephrology service care appreciated. Hyperkalemia improved. Continue to monitor electrolytes, renal indices, and urine output. May require dialysis. Endo: No acute issues. GI: No acute issues. ID: COVID-19, initially in systemic glucocorticoids, now held secondary to development of acute blood loss anemia. Heme/Onc: acute blood loss anemia secondary to GI hemorrhage, likely secondary anticoagulation systemic glucocorticoids. Hemoglobin stabilized. Eliquis, aspirin, and systemic glucocorticoids held. Psych: No acute issues. Miscellaneous: No acute issues. Prophylaxis: Intermittent pneumatic compression Diet: tube feeds Critical care time spent: 45 minutes Quality Stroke Does the patient have a stroke diagnosis?: No VTE Prior VTE?: No VTE Risk Level:: Medical - moderate - high VTE Device Contraindication: Treatment Not Indicated VTE Drug Contraindication: N/A - Med Ordered
[2021-05-16] MEDS: Furosemide 20 MG/2 ML VIAL IVPUSH (11:35)
[2021-05-16 11:57] LABS: Glucose, Whole Blood 177 mg/dL (60-115)
[2021-05-16] MEDS: vancomycin HCL 1,250 MG in 0.9 % Sodium Chloride 250 ML 166.67 MG IV (12:31)
--- NOTE | 2021-05-16 13:02 | MHC.CM.PN ---
Pt continues in ICU on 100% FiO2 ventilatory support d/t COVID/ARDS: renal status improved in 24 hours and hemodialysis not yet required. Pt remains quite ill and pt's care and stay will be lengthly per MD d/t his fragile condition. CM to follow for finalization of d/c plans
[2021-05-16] MEDS: Piperacillin Sodium/Tazobactam 3.375 GM in 0.9 % Sodium Chloride 50 ML IV ×2 (14:13→19:55)
[2021-05-16 17:32] LABS: Glucose, Whole Blood 196 mg/dL (60-115)
[2021-05-16 18:30] LABS: MANUAL DIFF FLAG NO
[2021-05-16 18:32] LABS: Basophils Percent Auto 0.1 % (0-2); Eosinophils Absolute Auto 0.3 X10*3/uL (0.0-0.4); Eosinophils Percent Auto 2.8 % (0-4); Hematocrit 32.9 % (42.0-52.0); Hemoglobin 10.2 g/dl (14.0-18.0); Imm Gran Abs Auto 0.16 X10*3/uL (0.00-0.03); Imm Gran Pct Auto 1.3 % (0.0-0.4); Lymphocytes Absolute Auto 0.7 X10*3/uL (1.2-4.9); Mean Corpuscular Hemoglobin 28.8 pg (27.0-33.0); Mean Corpuscular Volume 92.9 fL (80.0-98.0); Mean Platelet Volume 11.4 fL (9.4-12.4); Monocytes Absolute Auto 0.4 X10*3/uL (0.1-1.2); Monocytes Percent Auto 3.6 % (2-11); Neutrophils Absolute Auto 10.3 x10*3/uL (2.0-8.3); Neutrophils Percent Auto 86.2 % (45-73); Platelet Count 105 X10*3/uL (160-400); Red Blood Count 3.54 X10*6/uL (4.60-5.80); Red Cell Distribution Width 13.5 % (11.0-16.0)
[2021-05-16 18:51] LABS: Anion Gap 13 (12-20); Blood Urea Nitrogen 79 mg/dL (9-16); Calcium 8.7 mg/dL (8.4-10.2); Carbon Dioxide 31 mmol/L (22-29); Chloride 108 mmol/L (96-108); Creatinine Clr Calc Pharmacy 45.9; Estimated Glomerular Filt Rate 35; Glucose Random 217 mg/dL (60-115); Potassium 5.2 mmol/L (3.3-5.1); Sodium 147 mmol/L (135-145)
[2021-05-16] MEDS: Atorvastatin Calcium 20 MG TABLET PO (19:56)
[2021-05-16] MEDS: Insulin Glargine,Hum.rec.anlog 100 UNIT/ML 10 ML VIAL 24 UNIT SUBCUT (21:12)
[2021-05-16] MEDS: Acetaminophen Oral Liquid 650 MG/20.3 ML SOLUTION PO (23:16)
[2021-05-16 23:31] LABS: Glucose, Whole Blood 131 mg/dL (60-115)
[2021-05-17] VITALS (35 sets, daily range): BP systolic 91–160; BP diastolic 48–74; PULSE 81–105; RESP 13–27; TEMP 35–39; O2SAT 82–96; BMI 28.8
[2021-05-17] MEDS: propofoL 1,000 MG/100 ML VIAL 28.2 MG IVCONT ×9 (00:29→23:29)
[2021-05-17] MEDS: Piperacillin Sodium/Tazobactam 3.375 GM in 0.9 % Sodium Chloride 50 ML IV ×2 (01:22→08:13)
[2021-05-17] MEDS: Insulin Lispro 100 UNIT/ML 3 ML VIAL SUBCUT ×4 (01:41→17:49)
[2021-05-17] MEDS: 0.9 % Sodium Chloride Flush 3 ML SYRINGE IVFLUSH ×3 (01:43→23:28)
--- NOTE | 2021-05-17 03:13 | PC.NURSE ---
Pt. on AC vent. settings. Desats. very quickly as low as 76% and intolerant of turns. Febrile overnight to 102.2 and down to 101.3 after ice bath and PRN Tylenol 650mg x1. Good urine output from Camacho catheter. BMs x3 overnight.
[2021-05-17] MEDS: Albuterol/Iprat 2.5/0.5MG 3 ML AMPUL.NEB INHALE ×2 (05:28→12:02)
[2021-05-17] MEDS: Pantoprazole Sodium 40 MG/10 ML VIAL IVPUSH (05:29)
[2021-05-17 05:37] LABS: Glucose, Whole Blood 152 mg/dL (60-115)
[2021-05-17 05:44] LABS: VBG HCO3 36 mmol/L (22-26); VBG pCO2 54 mmHg; VBG pH 7.43 (7.32-7.43); VBG pO2 46 mmHg
[2021-05-17 05:46] LABS: MANUAL DIFF FLAG NO
[2021-05-17] MEDS: Midazolam HCl/NS 50 MG/50 ML PLAST..BAG IVCONT ×2 (06:01→17:49)
[2021-05-17 06:03] LABS: Basophils Percent Auto 0.1 % (0-2); Eosinophils Absolute Auto 0.5 X10*3/uL (0.0-0.4); Eosinophils Percent Auto 3.5 % (0-4); Hematocrit 33.7 % (42.0-52.0); Imm Gran Abs Auto 0.19 X10*3/uL (0.00-0.03); Imm Gran Pct Auto 1.3 % (0.0-0.4); Lymphocytes Absolute Auto 1.3 X10*3/uL (1.2-4.9); Lymphocytes Percent Auto 9.5 % (20-40); Mean Corpuscular HGB Conc 29.7 g/dl (31.0-36.0); Mean Corpuscular Volume 94.4 fL (80.0-98.0); Mean Platelet Volume 12.3 fL (9.4-12.4); Monocytes Absolute Auto 0.5 X10*3/uL (0.1-1.2); Monocytes Percent Auto 3.5 % (2-11); Neutrophils Absolute Auto 11.6 x10*3/uL (2.0-8.3); Neutrophils Percent Auto 82.1 % (45-73); Platelet Count 125 X10*3/uL (160-400); Red Blood Count 3.57 X10*6/uL (4.60-5.80); Red Cell Distribution Width 13.7 % (11.0-16.0); White Blood Count 14.1 X10*3/uL (4.8-10.8)
[2021-05-17 06:15] LABS: Anion Gap 17 (12-20); Blood Urea Nitrogen 85 mg/dL (9-16); Calcium 8.6 mg/dL (8.4-10.2); Carbon Dioxide 30 mmol/L (22-29); Chloride 107 mmol/L (96-108); Creatinine Clr Calc Pharmacy 42.4; Estimated Glomerular Filt Rate 32; Glucose Random 170 mg/dL (60-115); Magnesium 2.1 mg/dL (1.6-2.6); Phosphorus 3.9 mg/dL (2.7-4.5); Potassium 5.6 mmol/L (3.3-5.1); Sodium 148 mmol/L (135-145)
[2021-05-17 06:37] LABS: Venous Blood Gas Refer to POC result
[2021-05-17] MEDS: Chlorhexidine Gluc Oral Rinse 15 ML MOUTHWASH BUCCAL ×3 (08:14→19:42)
[2021-05-17] MEDS: Albumin Human 25 % 100 ML IV ×3 (08:14→19:41)
[2021-05-17] MEDS: Furosemide 40 MG/4 ML VIAL IVPUSH (08:14)
[2021-05-17] MEDS: Nystatin Powder 15 GM BOTTLE 1 APPL TOPICAL ×3 (08:15→19:44)
[2021-05-17] MEDS: Rocuronium Bromide 50 MG/5 ML VIAL IVPUSH (09:19)
[2021-05-17] MEDS: Albuterol Sulfate (0.083%) 2.5 MG/3 ML VIAL.NEB INHALE (09:22)
--- NOTE | 2021-05-17 10:03 | MHC.CLN ---
F/U PT REMAINS INTUBATED AND SEDATED RECEIVING NEPRO AT MAX GOAL RATE 30ML/HR PROVIDES 1296KCALS (2040KCALS WITH SEDATION; 23KCALS/KG), 58G PROTEIN (.6G/KG), 1662CC TOTAL WATER FROM FORMULA AND FLUSHES RECOMMEND INCREASING FLUSHES TO 240ML Q 6 HR MONITOR TOLERANCE, RESIDUALS AND LYTES
--- NOTE | 2021-05-17 10:52 | PM.PNNEP ---
Subjective Subjective Date of Service: 05/18/21 Principal diagnosis: COVID, JÚNIOR, CKD Interval history: Events noted Cr and UO noted Physical Exam Vital Signs: Vital Signs: Last Vital Signs Temp 102.0 F H 05/17/21 10:00 Pulse 104 H 05/17/21 10:00 Resp 24 H 05/17/21 10:00 BP 99/50 L 05/17/21 10:00 Pulse Ox 88 L 05/17/21 10:00 Oxygen Flow Rate 15 04/28/21 21:37 BMI result Body Mass Index 28.8 Neck: Neck: Yes supple Chest: Chest palpation & inspection: No rash Cardio: Palpation: no palpable S3 Neuro: Motor exam (neuro): No Asterixis during motor activity present Objective Data Labs CBC & Chem 7: 05/18/21 05:25 05/18/21 05:25 Labs: Laboratory Results - last 24 hr 05/16/21 05/16/21 05/16/21 11:50 17:27 18:25 WBC RBC Hgb Hct MCV MCH MCHC RDW Plt Count MPV Immature Gran % (Auto) Neut % (Auto) Lymph % (Auto) [place] % (Auto) Eos % (Auto) Baso % (Auto) Lymph # (Auto) [place] # (Auto) Eos # (Auto) Baso # (Auto) Abs Immat Gran (auto) Absolute Neuts (auto) Absolute Nucleated RBC Nucleated RBC % (auto) VBG pH VBG pCO2 VBG pO2 VBG HCO3 VBG O2 Saturation VBG Base Excess Sodium 147 H Potassium 5.2 H Chloride 108 Carbon Dioxide 31 H Anion Gap 13 BUN 79 H Creatinine 1.91 H Estim Creat Clear Calc 45.9 Estimated GFR 35 POC Glucose 177 H 196 H Random Glucose 217 H Calcium 8.7 Phosphorus Magnesium Albumin 05/16/21 05/16/21 05/17/21 18:25 23:24 05:29 WBC 12.0 H RBC 3.54 L Hgb 10.2 L Hct 32.9 L MCV 92.9 MCH 28.8 MCHC 31.0 RDW 13.5 Plt Count 105 L MPV 11.4 Immature Gran % (Auto) 1.3 H Neut % (Auto) 86.2 H Lymph % (Auto) 6.0 L [place] % (Auto) 3.6 Eos % (Auto) 2.8 Baso % (Auto) 0.1 Lymph # (Auto) 0.7 L [place] # (Auto) 0.4 Eos # (Auto) 0.3 Baso # (Auto) 0.0 Abs Immat Gran (auto) 0.16 H Absolute Neuts (auto) 10.3 H Absolute Nucleated RBC 0.000 Nucleated RBC % (auto) 0.0 VBG pH VBG pCO2 VBG pO2 VBG HCO3 VBG O2 Saturation VBG Base Excess Sodium Potassium Chloride Carbon Dioxide Anion Gap BUN Creatinine Estim Creat Clear Calc Estimated GFR POC Glucose 131 H 152 H Random Glucose Calcium Phosphorus Magnesium Albumin 05/17/21 05/17/21 05/17/21 05:35 05:35 05:39 WBC 14.1 H RBC 3.57 L Hgb 10.0 L Hct 33.7 L MCV 94.4 MCH 28.0 MCHC 29.7 L RDW 13.7 Plt Count 125 L MPV 12.3 Immature Gran % (Auto) 1.3 H Neut % (Auto) 82.1 H Lymph % (Auto) 9.5 L [place] % (Auto) 3.5 Eos % (Auto) 3.5 Baso % (Auto) 0.1 Lymph # (Auto) 1.3 [place] # (Auto) 0.5 Eos # (Auto) 0.5 H Baso # (Auto) 0.0 Abs Immat Gran (auto) 0.19 H Absolute Neuts (auto) 11.6 H Absolute Nucleated RBC 0.000 Nucleated RBC % (auto) 0.0 VBG pH 7.43 VBG pCO2 54 VBG pO2 46 VBG HCO3 36 H VBG O2 Saturation 78.0 VBG Base Excess 11.0 Sodium 148 H Potassium 5.6 H Chloride 107 Carbon Dioxide 30 H Anion Gap 17 BUN 85 H Creatinine 2.06 H Estim Creat Clear Calc 42.4 Estimated GFR 32 POC Glucose Random Glucose 170 H Calcium 8.6 Phosphorus 3.9 Magnesium 2.1 Albumin 3.0 L Microbiology Microbiology Results: Microbiology 05/15/21 08:25 Blood - Venous Blood Culture - Preliminary No growth after 48 hours. 05/15/21 08:25 Blood - Venous Blood Culture - Preliminary No growth after 48 hours. 05/13/21 Unknown Urine Catheterized - Camacho Catheter Urine Culture - Final Serratia marcescens 04/28/21 22:17 Blood - Venous Blood Culture - Final No growth after 5 days. 04/28/21 22:17 Blood - Venous Blood Culture - Final No growth after 5 days. Procedures Date of Service Date of Service: 05/17/21 Assessment & Plan Assessment and plan (1) JÚNIOR (acute kidney injury): Status: Inactive Assessment and Plan: (1) CKD (chronic kidney disease) stage 3, GFR 30-59 ml/min: ?Status:?Acute (2) SARS-CoV-2 positive: ?Status:?Acute ?Assessment and Plan: JÚNIOR due to compromised kidney perfusion in the setting of SARS COV 2 known CKD 3 due to DM/HTN followed by Dr Gaston MORENO Keep O > I no indication for dialysis today sodium zirconium as needed to correct hyperkalemia follow kidney function and electrolytes Time Spent With Patient Time: Total time spent is greater than 50% in coordination of care (as documented) at patient's floor/unit and/or counseling patient: Time with patient: 15 - 24 minutes Progress Note: Quality Stroke Does the patient have a stroke diagnosis?: No
[2021-05-17 10:53] LABS: Vancomycin Trough 16.7 mcg/mL (10.0-20.0)
--- NOTE | 2021-05-17 10:54 | P.PNCC_ITS ---
Subjective Subjective Date of Service: 05/17/21 Interval History: 66-year-old gentleman with underlying history hypertension congestive heart failure, diabetes mellitus, COVID positive on 04/19/2021, admitted on 04/28/2021 with shortness of breath and hypoxemia. Patient treated with systemic glucocorticoids. hospital course significant for worsening hypoxemia requiring transfer to intensive care unit on 05/09/2021 and intubation on 05/13/2021, progressive acute kidney injury, and development of Mobitz type 2 block requiring placement of temporary pacer on 05/13/2021. No events overnight. This a.m. with development of a cuff leak requiring exchange of ET tube over bougie. also, with ventilator dyssynchrony requiring paralytic bolus. Critical Care Time (minutes): 45 Physical Exam Vital Signs: Vital Signs: Last Vital Signs Temp 102.0 F H 05/17/21 10:00 Pulse 104 H 05/17/21 10:00 Resp 24 H 05/17/21 10:00 BP 99/50 L 05/17/21 10:00 Pulse Ox 88 L 05/17/21 10:00 Oxygen Flow Rate 15 04/28/21 21:37 BMI result Body Mass Index 28.8 Const: General: no acute distress and other ( sedated on the vent) Eyes: Sclerae: sclerae normal EOM: EOMs intact bilaterally Neck: Neck: Yes no lymphadenopathy, Yes trachea midline and Yes supple Resp: Auscultation: crackles ( Diffuse bilateral) Cardio: Rate: regular rate Rhythm: regular rhythm Heart sounds: no gallops, no murmurs and no rubs GI: Palpation (GI): Soft to palpation and Other GI palpation findings present ( Nontender) Auscultation: normal bowel sounds Extrem: General: No clubbing, No cyanosis and Yes pedal edema ( 1+ bilateral) Objective Data Labs CBC & Chem 7: 05/17/21 05:35 05/17/21 05:35 Labs: Laboratory Results - last 24 hr 05/16/21 05/16/21 05/16/21 11:50 17:27 18:25 WBC RBC Hgb Hct MCV MCH MCHC RDW Plt Count MPV Immature Gran % (Auto) Neut % (Auto) Lymph % (Auto) [place] % (Auto) Eos % (Auto) Baso % (Auto) Lymph # (Auto) [place] # (Auto) Eos # (Auto) Baso # (Auto) Abs Immat Gran (auto) Absolute Neuts (auto) Absolute Nucleated RBC Nucleated RBC % (auto) VBG pH VBG pCO2 VBG pO2 VBG HCO3 VBG O2 Saturation VBG Base Excess Sodium 147 H Potassium 5.2 H Chloride 108 Carbon Dioxide 31 H Anion Gap 13 BUN 79 H Creatinine 1.91 H Estim Creat Clear Calc 45.9 Estimated GFR 35 POC Glucose 177 H 196 H Random Glucose 217 H Calcium 8.7 Phosphorus Magnesium Albumin Vancomycin Trough 05/16/21 05/16/21 05/17/21 18:25 23:24 05:29 WBC 12.0 H RBC 3.54 L Hgb 10.2 L Hct 32.9 L MCV 92.9 MCH 28.8 MCHC 31.0 RDW 13.5 Plt Count 105 L MPV 11.4 Immature Gran % (Auto) 1.3 H Neut % (Auto) 86.2 H Lymph % (Auto) 6.0 L [place] % (Auto) 3.6 Eos % (Auto) 2.8 Baso % (Auto) 0.1 Lymph # (Auto) 0.7 L [place] # (Auto) 0.4 Eos # (Auto) 0.3 Baso # (Auto) 0.0 Abs Immat Gran (auto) 0.16 H Absolute Neuts (auto) 10.3 H Absolute Nucleated RBC 0.000 Nucleated RBC % (auto) 0.0 VBG pH VBG pCO2 VBG pO2 VBG HCO3 VBG O2 Saturation VBG Base Excess Sodium Potassium Chloride Carbon Dioxide Anion Gap BUN Creatinine Estim Creat Clear Calc Estimated GFR POC Glucose 131 H 152 H Random Glucose Calcium Phosphorus Magnesium Albumin Vancomycin Trough 05/17/21 05/17/21 05/17/21 05:35 05:35 05:39 WBC 14.1 H RBC 3.57 L Hgb 10.0 L Hct 33.7 L MCV 94.4 MCH 28.0 MCHC 29.7 L RDW 13.7 Plt Count 125 L MPV 12.3 Immature Gran % (Auto) 1.3 H Neut % (Auto) 82.1 H Lymph % (Auto) 9.5 L [place] % (Auto) 3.5 Eos % (Auto) 3.5 Baso % (Auto) 0.1 Lymph # (Auto) 1.3 [place] # (Auto) 0.5 Eos # (Auto) 0.5 H Baso # (Auto) 0.0 Abs Immat Gran (auto) 0.19 H Absolute Neuts (auto) 11.6 H Absolute Nucleated RBC 0.000 Nucleated RBC % (auto) 0.0 VBG pH 7.43 VBG pCO2 54 VBG pO2 46 VBG HCO3 36 H VBG O2 Saturation 78.0 VBG Base Excess 11.0 Sodium 148 H Potassium 5.6 H Chloride 107 Carbon Dioxide 30 H Anion Gap 17 BUN 85 H Creatinine 2.06 H Estim Creat Clear Calc 42.4 Estimated GFR 32 POC Glucose Random Glucose 170 H Calcium 8.6 Phosphorus 3.9 Magnesium 2.1 Albumin 3.0 L Vancomycin Trough 05/17/21 10:12 WBC RBC Hgb Hct MCV MCH MCHC RDW Plt Count MPV Immature Gran % (Auto) Neut % (Auto) Lymph % (Auto) [place] % (Auto) Eos % (Auto) Baso % (Auto) Lymph # (Auto) [place] # (Auto) Eos # (Auto) Baso # (Auto) Abs Immat Gran (auto) Absolute Neuts (auto) Absolute Nucleated RBC Nucleated RBC % (auto) VBG pH VBG pCO2 VBG pO2 VBG HCO3 VBG O2 Saturation VBG Base Excess Sodium Potassium Chloride Carbon Dioxide Anion Gap BUN Creatinine Estim Creat Clear Calc Estimated GFR POC Glucose Random Glucose Calcium Phosphorus Magnesium Albumin Vancomycin Trough 16.7 Microbiology Microbiology Results: Microbiology 05/15/21 08:25 Blood - Venous Blood Culture - Preliminary No growth after 48 hours. 05/15/21 08:25 Blood - Venous Blood Culture - Preliminary No growth after 48 hours. 05/13/21 Unknown Urine Catheterized - Camacho Catheter Urine Culture - Final Serratia marcescens 04/28/21 22:17 Blood - Venous Blood Culture - Final No growth after 5 days. 04/28/21 22:17 Blood - Venous Blood Culture - Final No growth after 5 days. Progress Note: A&P Assessment and plan (1) CHF (congestive heart failure): Status: Acute (2) Type 2 diabetes mellitus: Status: Acute (3) ARDS (adult respiratory distress syndrome): Status: Acute (4) Acute hypoxemic respiratory failure due to COVID-19: Status: Acute (5) Acute kidney injury superimposed on CKD: Status: Acute Assessment and Plan: Assessment: 66-year-old gentleman with underlying history of hypertension, CHF, diabetes mellitus admitted with acute hypoxic respiratory failure secondary to COVID-19 ARDS, requiring ventilatory support and further complicated by acute renal failure and chronotropic insufficiency Plan: Neuro: No acute issues. Cardiac: Mobitz type 2 status post temporary pacemaker. Patient has not required patient over the last 48 hours temporary pacer wire has been removed. Cardiology service care appreciated. Continue with judicious diuresis. Pulmonary: Acute hypoxic respiratory failure secondary to COVID-19 ARDS now requiring ventilatory support. Continue to titrate off ventilatory support as tolerated. Renal: Acute renal failure on the background of chronic kidney disease, likely secondary to COVID-19. Nephrology service care appreciated. Continue to monitor electrolytes, renal indices, and urine output. May require dialysis. Endo: No acute issues. GI: No acute issues. ID: COVID-19, initially on systemic glucocorticoids, now held secondary to development of acute blood loss anemia. Heme/Onc: No rebleeding. Hemoglobin stabilized. Eliquis, aspirin, and systemic glucocorticoids held. Psych: No acute issues. Miscellaneous: No acute issues. Prophylaxis: Intermittent pneumatic compression Diet: tube feeds Critical care time spent: 45 minutes Quality Stroke Does the patient have a stroke diagnosis?: No VTE Prior VTE?: No VTE Risk Level:: Medical - moderate - high VTE Device Contraindication: Treatment Not Indicated VTE Drug Contraindication: N/A - Med Ordered
--- NOTE | 2021-05-17 11:00 | P.PNCA_ITS ---
Subjective Subjective Date of Service: 05/17/21 Principal diagnosis: COVID, JÚNIOR, CKD Interval history: Patient is sedated on ventilator right now. His temporary pacemaker wire was removed today. Telemetry has been stable. Physical Exam Vital Signs: Last Vital Signs Temp 102.0 F H 05/17/21 10:00 Pulse 104 H 05/17/21 10:00 Resp 24 H 05/17/21 10:00 BP 99/50 L 05/17/21 10:00 Pulse Ox 88 L 05/17/21 10:00 Oxygen Flow Rate 15 04/28/21 21:37 BMI result Body Mass Index 28.8 GENERAL APPEARANCE: Sedated ventilated NECK: Right IJ Cordis catheter. HEART: no murmurs, regular rate and rhythm. LUNGS: clear to auscultation anteriorly. ABDOMEN: Not distended. NEUROLOGIC: Sedated and ventilated. Objective Labs and Meds Result diagrams: 05/17/21 05:35 05/17/21 05:35 Lab results: Laboratory Results - last 24 hr 05/16/21 05/16/21 05/16/21 11:50 17:27 18:25 WBC RBC Hgb Hct MCV MCH MCHC RDW Plt Count MPV Immature Gran % (Auto) Neut % (Auto) Lymph % (Auto) [place] % (Auto) Eos % (Auto) Baso % (Auto) Lymph # (Auto) [place] # (Auto) Eos # (Auto) Baso # (Auto) Abs Immat Gran (auto) Absolute Neuts (auto) Absolute Nucleated RBC Nucleated RBC % (auto) VBG pH VBG pCO2 VBG pO2 VBG HCO3 VBG O2 Saturation VBG Base Excess Sodium 147 H Potassium 5.2 H Chloride 108 Carbon Dioxide 31 H Anion Gap 13 BUN 79 H Creatinine 1.91 H Estim Creat Clear Calc 45.9 Estimated GFR 35 POC Glucose 177 H 196 H Random Glucose 217 H Calcium 8.7 Phosphorus Magnesium Albumin Vancomycin Trough 05/16/21 05/16/21 05/17/21 18:25 23:24 05:29 WBC 12.0 H RBC 3.54 L Hgb 10.2 L Hct 32.9 L MCV 92.9 MCH 28.8 MCHC 31.0 RDW 13.5 Plt Count 105 L MPV 11.4 Immature Gran % (Auto) 1.3 H Neut % (Auto) 86.2 H Lymph % (Auto) 6.0 L [place] % (Auto) 3.6 Eos % (Auto) 2.8 Baso % (Auto) 0.1 Lymph # (Auto) 0.7 L [place] # (Auto) 0.4 Eos # (Auto) 0.3 Baso # (Auto) 0.0 Abs Immat Gran (auto) 0.16 H Absolute Neuts (auto) 10.3 H Absolute Nucleated RBC 0.000 Nucleated RBC % (auto) 0.0 VBG pH VBG pCO2 VBG pO2 VBG HCO3 VBG O2 Saturation VBG Base Excess Sodium Potassium Chloride Carbon Dioxide Anion Gap BUN Creatinine Estim Creat Clear Calc Estimated GFR POC Glucose 131 H 152 H Random Glucose Calcium Phosphorus Magnesium Albumin Vancomycin Trough 05/17/21 05/17/21 05/17/21 05:35 05:35 05:39 WBC 14.1 H RBC 3.57 L Hgb 10.0 L Hct 33.7 L MCV 94.4 MCH 28.0 MCHC 29.7 L RDW 13.7 Plt Count 125 L MPV 12.3 Immature Gran % (Auto) 1.3 H Neut % (Auto) 82.1 H Lymph % (Auto) 9.5 L [place] % (Auto) 3.5 Eos % (Auto) 3.5 Baso % (Auto) 0.1 Lymph # (Auto) 1.3 [place] # (Auto) 0.5 Eos # (Auto) 0.5 H Baso # (Auto) 0.0 Abs Immat Gran (auto) 0.19 H Absolute Neuts (auto) 11.6 H Absolute Nucleated RBC 0.000 Nucleated RBC % (auto) 0.0 VBG pH 7.43 VBG pCO2 54 VBG pO2 46 VBG HCO3 36 H VBG O2 Saturation 78.0 VBG Base Excess 11.0 Sodium 148 H Potassium 5.6 H Chloride 107 Carbon Dioxide 30 H Anion Gap 17 BUN 85 H Creatinine 2.06 H Estim Creat Clear Calc 42.4 Estimated GFR 32 POC Glucose Random Glucose 170 H Calcium 8.6 Phosphorus 3.9 Magnesium 2.1 Albumin 3.0 L Vancomycin Trough 05/17/21 10:12 WBC RBC Hgb Hct MCV MCH MCHC RDW Plt Count MPV Immature Gran % (Auto) Neut % (Auto) Lymph % (Auto) [place] % (Auto) Eos % (Auto) Baso % (Auto) Lymph # (Auto) [place] # (Auto) Eos # (Auto) Baso # (Auto) Abs Immat Gran (auto) Absolute Neuts (auto) Absolute Nucleated RBC Nucleated RBC % (auto) VBG pH VBG pCO2 VBG pO2 VBG HCO3 VBG O2 Saturation VBG Base Excess Sodium Potassium Chloride Carbon Dioxide Anion Gap BUN Creatinine Estim Creat Clear Calc Estimated GFR POC Glucose Random Glucose Calcium Phosphorus Magnesium Albumin Vancomycin Trough 16.7 Imaging Radiologist's impression: Impressions Chest X-Ray 05/17/21 09:30 IMPRESSION: No significant change in diffuse bilateral interstitial and airspace disease. Endotracheal tube tip approximately 5 cm above the sowmya. Progress Note: A&P Assessment and plan (1) ARDS (adult respiratory distress syndrome): Status: Acute (2) AV block: Status: Acute Assessment and Plan: 66 year gentleman with severe COVID-19 infection and pneumonia. He is currently sedated and ventilated. It appears he had Mobitz type 2 block and had temporary pacemaker wire placed by Dr. Morgan. Telemetry has been stable. He has been spiking fevers. We have decided to remove the temporary pacemaker today. He has right internal jugular access in case we need to put the temporary pacemaker wire back. So far he has been stable. Treatment of ARDS as per the ICU team. Thank you for allowing me to participate in the care of your patient. Please feel free to contact me if you have any questions. Fall Risk Details Current Medications: Current Medications Acetaminophen (Acetaminophen Oral Liquid 650 Mg/20.3 Ml Solution) 650 mg PO Q4H PRN PRN Reason: Fever >101 Last Admin: 05/16/21 23:16 Dose: 650 mg Documented by: Albuterol Sulfate (Albuterol Sulfate (0.083%) 2.5 Mg/3 Ml Vial.Neb) 2.5 mg INHALE Q2H PRN PRN Reason: Wheezing Last Admin: 05/17/21 09:22 Dose: 2.5 mg Documented by: Albuterol/Ipratropium (Albuterol/Iprat 2.5/0.5mg 3 Ml Ampul.Neb) 3 ml INHALE RQ6H [place] Last Admin: 05/17/21 05:28 Dose: 3 ml Documented by: Atorvastatin Calcium (Atorvastatin Calcium 20 Mg Tablet) 20 mg PO BEDTIME [place] Last Admin: 05/16/21 19:56 Dose: 20 mg Documented by: Chlorhexidine Gluconate (Chlorhexidine Gluc Oral Rinse 15 Ml Mouthwash) 15 ml BUCCAL TID [facility] Last Admin: 05/17/21 08:14 Dose: 15 ml Documented by: Dextrose (Dextrose 50 % 25 Gm/50 Ml Vial) 25 gm IVPUSH Q15M PRN; Protocol PRN Reason: per Hypoglycemia Standing Ord. Fentanyl (Fentanyl Citrate/Pf 100 Mcg/2 Ml Vial) 50 mcg IVPUSH Q2H PRN; P rotocol PRN Reason: wob Last Admin: 05/15/21 01:48 Dose: 50 mcg Documented by: Propofol (Diprivan) 1,000 mg in 100 mls @ 0 mls/hr IVCONT .Q0M [facility]; Protocol Last Admin: 05/17/21 09:04 Dose: 50 mcg/kg/min, 28.2 mls/hr Documented by: Midazolam HCl (Versed) 50 mg in 50 mls @ 2 mls/hr IVCONT .Q24H [facility] Last Admin: 05/17/21 06:01 Dose: 4 mg/hr, 4 mls/hr Documented by: Norepinephrine Bitartrate (Levophed) 8 mg in 250 mls @ 0 mls/hr IVCONT .Q0M [facility]; Protocol Last Titration: 05/17/21 06:33 Dose: 0.1 mcg/kg/min, 17.63 mls/hr Documented by: Piperacillin Sod/Tazobactam (Sod 3.375 gm/ Sodium Chloride) 50 mls @ 100 mls/hr IV Q6H [facility] Last Infusion: 05/17/21 08:47 Dose: Infused Documented by: Albumin Human (Kedbumin 25 %) 100 mls @ 100 mls/hr IV Q6H [facility] Stop: 05/18/21 02:44 Last Infusion: 05/17/21 09:19 Dose: Infused Documented by: Vancomycin HCl 1,000 mg/ (Sodium Chloride) 270 mls @ 270 mls/hr IV Q24H [facility] Insulin Glargine (Insulin Glargine,Hum.Rec.Anlog 100 Unit/Ml 10 Ml Vial) 24 unit SUBCUT BEDTIME [facility] Last Admin: 05/16/21 21:12 Dose: 24 unit Documented by: Insulin Human Lispro (Insulin Lispro 100 Unit/Ml 3 Ml Vial) 0.1 - 18 unit SUBCUT Q6H [facility]; Protocol Last Admin: 05/17/21 05:35 Dose: 5 unit Documented by: Nystatin (Nystatin Powder 15 Gm Bottle) 1 appl TOPICAL TID [place]; Protocol Last Admin: 05/17/21 08:15 Dose: 1 appl Documented by: Pharmacy Consult (Consult Rx Perform Med Rec) 1 each MISCELLANE ONCE PRN PRN Reason: Consult order Pharmacy Consult (Consult Rx Vancomycin Dosing) 1 each MISCELLANE DAILY PRN PRN Reason: Consult order Rocuronium [place]and[place] (Rocuronium [place]ia 50 Mg/5 Ml Vial) 50 mg IVPUSH 8XD PRN PRN Reason: Ventilator synchrony Last Admin: 05/17/21 09:19 Dose: 50 mg Documented by: Sodium Chloride (0.9 % Sodium Chloride Flush 3 Ml Syringe) 3 ml IVFLUSH QSHIFT [facility] Last Admin: 05/17/21 08:14 Dose: 3 ml Documented by: Time Spent With Patient Time: Total time spent is greater than 50% in coordination of care (as documented) at patient's floor/unit and/or counseling patient: Time with patient: 15 - 24 minutes Progress Note: Quality Stroke Does the patient have a stroke diagnosis?: No Procedures Date of Service Date of Service: 05/17/21
[2021-05-17 11:40] LABS: Glucose, Whole Blood 170 mg/dL (60-115)
[2021-05-17] MEDS: cefTRIAXone sodium 1 GM in 0.9 % Sodium Chloride 50 ML IV (13:49)
[2021-05-17 17:36] LABS: Glucose, Whole Blood 162 mg/dL (60-115)
[2021-05-17] MEDS: Atorvastatin Calcium 20 MG TABLET PO (19:42)
[2021-05-17] MEDS: Insulin Glargine,Hum.rec.anlog 100 UNIT/ML 10 ML VIAL 24 UNIT SUBCUT (19:44)
[2021-05-17 19:50] LABS: Glucose, Whole Blood 110 mg/dL (60-115)
[2021-05-17 20:42] LABS: Anion Gap 18 (12-20); Blood Urea Nitrogen 85 mg/dL (9-16); Calcium 8.5 mg/dL (8.4-10.2); Carbon Dioxide 29 mmol/L (22-29); Chloride 109 mmol/L (96-108); Creatinine Clr Calc Pharmacy 38.7; Estimated Glomerular Filt Rate 29; Glucose Random 108 mg/dL (60-115); Potassium 4.7 mmol/L (3.3-5.1); Sodium 151 mmol/L (135-145)
[2021-05-18] VITALS (35 sets, daily range): BP systolic 82–183; BP diastolic 40–79; PULSE 76–102; RESP 18–26; TEMP 35–39.3; O2SAT 88–95; BMI 29.3
[2021-05-18] MEDS: Albuterol/Iprat 2.5/0.5MG 3 ML AMPUL.NEB INHALE ×5 (00:15→23:33)
[2021-05-18 02:13] LABS: Glucose, Whole Blood 100 mg/dL (60-115)
[2021-05-18] MEDS: Albumin Human 25 % 100 ML IV (02:13)
[2021-05-18] MEDS: propofoL 1,000 MG/100 ML VIAL 28.2 MG IVCONT ×7 (02:14→22:48)
[2021-05-18 05:37] LABS: VBG Base Excess 8.2 mmol/L; VBG HCO3 34 mmol/L (22-26); VBG pCO2 55 mmHg; VBG pH 7.39 (7.32-7.43); VBG pO2 51 mmHg
[2021-05-18 05:43] LABS: Venous Blood Gas Refer to POC result
[2021-05-18 05:46] LABS: MANUAL DIFF FLAG NO
[2021-05-18 05:49] LABS: Basophils Percent Auto 0.1 % (0-2); Eosinophils Absolute Auto 0.4 X10*3/uL (0.0-0.4); Hematocrit 30.1 % (42.0-52.0); Hemoglobin 8.8 g/dl (14.0-18.0); Imm Gran Abs Auto 0.21 X10*3/uL (0.00-0.03); Imm Gran Pct Auto 1.7 % (0.0-0.4); Lymphocytes Absolute Auto 0.7 X10*3/uL (1.2-4.9); Lymphocytes Percent Auto 5.8 % (20-40); Mean Corpuscular HGB Conc 29.2 g/dl (31.0-36.0); Mean Corpuscular Hemoglobin 28.3 pg (27.0-33.0); Mean Corpuscular Volume 96.8 fL (80.0-98.0); Mean Platelet Volume 11.9 fL (9.4-12.4); Monocytes Absolute Auto 0.4 X10*3/uL (0.1-1.2); Monocytes Percent Auto 3.4 % (2-11); Neutrophils Absolute Auto 10.4 x10*3/uL (2.0-8.3); Platelet Count 127 X10*3/uL (160-400); Red Blood Count 3.11 X10*6/uL (4.60-5.80); Red Cell Distribution Width 14.2 % (11.0-16.0); White Blood Count 12.1 X10*3/uL (4.8-10.8)
[2021-05-18 06:08] LABS: Albumin Level 3.7 g/dL (3.5-5.0); Anion Gap 17 (12-20); Blood Urea Nitrogen 86 mg/dL (9-16); Calcium 8.7 mg/dL (8.4-10.2); Carbon Dioxide 30 mmol/L (22-29); Chloride 108 mmol/L (96-108); Creatinine Clr Calc Pharmacy 39.7; Estimated Glomerular Filt Rate 30; Glucose Random 146 mg/dL (60-115); Phosphorus 4.7 mg/dL (2.7-4.5); Potassium 4.9 mmol/L (3.3-5.1); Sodium 150 mmol/L (135-145)
[2021-05-18 07:45] LABS: Glucose, Whole Blood 131 mg/dL (60-115)
[2021-05-18] MEDS: Acetaminophen Oral Liquid 650 MG/20.3 ML SOLUTION PO (08:02)
[2021-05-18] MEDS: Chlorhexidine Gluc Oral Rinse 15 ML MOUTHWASH BUCCAL ×3 (08:02→19:59)
[2021-05-18] MEDS: Nystatin Powder 15 GM BOTTLE 1 APPL TOPICAL ×3 (08:03→19:56)
--- NOTE | 2021-05-18 09:45 | MHC.CM.PN ---
Pt continues in ICU on ventilatory support: Temporary pacer removed on 05/17: pt on pressors and 90% FiO2. Per MD: pt is in a holding pattern as it relates to prognosis. MD has updated pt's spouse - CM will follow for finalization of d/c plans
--- NOTE | 2021-05-18 11:38 | P.PNNP_ITS ---
Subjective Subjective Date of Service: 05/19/21 Principal diagnosis: COVID, JÚNIOR, CKD Interval history: Events noted Remains on Vent Physical Exam Vital Signs: Vital Signs: Last Vital Signs Temp 102.7 F H 05/18/21 08:00 Pulse 87 05/18/21 11:00 Resp 21 H 05/18/21 11:00 BP 130/59 L 05/18/21 11:00 Pulse Ox 93 05/18/21 11:00 Oxygen Flow Rate 15 04/28/21 21:37 BMI result Body Mass Index 29.3 Neck: Neck: Yes supple Chest: Chest palpation & inspection: No rash Cardio: Palpation: no palpable S3 Neuro: Motor exam (neuro): No Asterixis during motor activity present Objective Data Labs CBC & Chem 7: 05/19/21 05:25 05/19/21 05:25 Labs: Laboratory Results - last 24 hr 05/17/21 05/17/21 05/17/21 11:36 17:32 19:45 WBC RBC Hgb Hct MCV MCH MCHC RDW Plt Count MPV Immature Gran % (Auto) Neut % (Auto) Lymph % (Auto) [place] % (Auto) Eos % (Auto) Baso % (Auto) Lymph # (Auto) [place] # (Auto) Eos # (Auto) Baso # (Auto) Abs Immat Gran (auto) Absolute Neuts (auto) Absolute Nucleated RBC Nucleated RBC % (auto) VBG pH VBG pCO2 VBG pO2 VBG HCO3 VBG O2 Saturation VBG Base Excess Sodium Potassium Chloride Carbon Dioxide Anion Gap BUN Creatinine Estim Creat Clear Calc Estimated GFR POC Glucose 170 H 162 H 110 Random Glucose Calcium Phosphorus Magnesium Albumin 05/17/21 05/17/21 05/18/21 20:06 23:36 04:54 WBC RBC Hgb Hct MCV MCH MCHC RDW Plt Count MPV Immature Gran % (Auto) Neut % (Auto) Lymph % (Auto) [place] % (Auto) Eos % (Auto) Baso % (Auto) Lymph # (Auto) [place] # (Auto) Eos # (Auto) Baso # (Auto) Abs Immat Gran (auto) Absolute Neuts (auto) Absolute Nucleated RBC Nucleated RBC % (auto) VBG pH VBG pCO2 VBG pO2 VBG HCO3 VBG O2 Saturation VBG Base Excess Sodium 151 H Potassium 4.7 Chloride 109 H Carbon Dioxide 29 Anion Gap 18 BUN 85 H Creatinine 2.26 H Estim Creat Clear Calc 38.7 Estimated GFR 29 POC Glucose 100 131 H Random Glucose 108 D Calcium 8.5 Phosphorus Magnesium Albumin 05/18/21 05/18/21 05/18/21 05:25 05:25 05:31 WBC 12.1 H RBC 3.11 L Hgb 8.8 L Hct 30.1 L MCV 96.8 MCH 28.3 MCHC 29.2 L RDW 14.2 Plt Count 127 L MPV 11.9 Immature Gran % (Auto) 1.7 H Neut % (Auto) 86.0 H Lymph % (Auto) 5.8 L [place] % (Auto) 3.4 Eos % (Auto) 3.0 Baso % (Auto) 0.1 Lymph # (Auto) 0.7 L [place] # (Auto) 0.4 Eos # (Auto) 0.4 Baso # (Auto) 0.0 Abs Immat Gran (auto) 0.21 H Absolute Neuts (auto) 10.4 H Absolute Nucleated RBC 0.000 Nucleated RBC % (auto) 0.0 VBG pH 7.39 VBG pCO2 55 VBG pO2 51 VBG HCO3 34 H VBG O2 Saturation 81.0 VBG Base Excess 8.2 Sodium 150 H Potassium 4.9 Chloride 108 Carbon Dioxide 30 H Anion Gap 17 BUN 86 H Creatinine 2.22 H Estim Creat Clear Calc 39.7 Estimated GFR 30 POC Glucose Random Glucose 146 H D Calcium 8.7 Phosphorus 4.7 H Magnesium 2.0 Albumin 3.7 D Microbiology Microbiology Results: Microbiology 05/17/21 15:20 Sputum - Suctioned Gram Stain - Final 05/17/21 15:20 Sputum - Suctioned Sputum Culture - Preliminary Culture in progress. 05/15/21 08:25 Blood - Venous Blood Culture - Preliminary No growth after 48 hours. 05/15/21 08:25 Blood - Venous Blood Culture - Preliminary No growth after 48 hours. 05/13/21 Unknown Urine Catheterized - Camacho Catheter Urine Culture - Final Serratia marcescens 04/28/21 22:17 Blood - Venous Blood Culture - Final No growth after 5 days. 04/28/21 22:17 Blood - Venous Blood Culture - Final No growth after 5 days. Procedures Date of Service Date of Service: 05/18/21 Assessment & Plan Assessment and plan (1) JÚNIOR (acute kidney injury): Status: Inactive Assessment and Plan: (1) CKD (chronic kidney disease) stage 3, GFR 30-59 ml/min: ?Status:?Acute (2) SARS-CoV-2 positive: ?Status:?Acute ?Assessment and Plan: JÚNIOR due to compromised kidney perfusion in the setting of SARS COV 2 known CKD 3 due to DM/HTN followed by Dr Feldman Hypernatremia - due to free water deficit REC Add free water or D5W no indication for dialysis today sodium zirconium as needed to correct hyperkalemia follow kidney function and electrolytes Time Spent With Patient Time: Total time spent is greater than 50% in coordination of care (as documented) at patient's floor/unit and/or counseling patient: Progress Note: Quality Stroke Does the patient have a stroke diagnosis?: No
[2021-05-18 12:12] LABS: Glucose, Whole Blood 195 mg/dL (60-115)
[2021-05-18] MEDS: Insulin Lispro 100 UNIT/ML 3 ML VIAL SUBCUT ×3 (12:22→23:32)
[2021-05-18] MEDS: cefTRIAXone sodium 1 GM in 0.9 % Sodium Chloride 50 ML IV (13:07)
--- NOTE | 2021-05-18 13:10 | P.PNCC_ITS ---
Subjective Subjective Date of Service: 05/18/21 Interval History: 66-year-old gentleman with underlying history hypertension congestive heart failure, diabetes mellitus, COVID positive on 04/19/2021, admitted on 04/28/2021 with shortness of breath and hypoxemia. Patient treated with systemic glucocorticoids. hospital course significant for worsening hypoxemia requiring transfer to intensive care unit on 05/09/2021 and intubation on 05/13/2021, progressive acute kidney injury, and development of Mobitz type 2 block requiring placement of temporary pacer on 05/13/2021. Temporary pacer taken out on 05/17/2021. No events overnight. No significant changes in FiO2 requirements. Critical Care Time (minutes): 45 Physical Exam Vital Signs: Vital Signs: Last Vital Signs Temp 101.7 F H 05/18/21 13:00 Pulse 89 05/18/21 13:00 Resp 21 H 05/18/21 13:00 BP 119/59 L 05/18/21 13:00 Pulse Ox 94 05/18/21 13:00 Oxygen Flow Rate 15 04/28/21 21:37 BMI result Body Mass Index 29.3 Const: General: no acute distress and other ( sedated on the vent) Eyes: Sclerae: sclerae normal EOM: EOMs intact bilaterally Neck: Neck: Yes no lymphadenopathy, Yes trachea midline and Yes supple Resp: Auscultation: crackles ( diffuse bilateral) Cardio: Rate: regular rate Rhythm: regular rhythm Heart sounds: no gallops, no murmurs and no rubs GI: Palpation (GI): Soft to palpation and Other GI palpation findings present ( Nontender) Auscultation: normal bowel sounds Extrem: General: Yes no pedal edema, No clubbing and No cyanosis Objective Data Labs CBC & Chem 7: 05/18/21 05:25 05/18/21 05:25 Labs: Laboratory Results - last 24 hr 05/17/21 05/17/21 05/17/21 17:32 19:45 20:06 WBC RBC Hgb Hct MCV MCH MCHC RDW Plt Count MPV Immature Gran % (Auto) Neut % (Auto) Lymph % (Auto) [place] % (Auto) Eos % (Auto) Baso % (Auto) Lymph # (Auto) [place] # (Auto) Eos # (Auto) Baso # (Auto) Abs Immat Gran (auto) Absolute Neuts (auto) Absolute Nucleated RBC Nucleated RBC % (auto) VBG pH VBG pCO2 VBG pO2 VBG HCO3 VBG O2 Saturation VBG Base Excess Sodium 151 H Potassium 4.7 Chloride 109 H Carbon Dioxide 29 Anion Gap 18 BUN 85 H Creatinine 2.26 H Estim Creat Clear Calc 38.7 Estimated GFR 29 POC Glucose 162 H 110 Random Glucose 108 D Calcium 8.5 Phosphorus Magnesium Albumin 05/17/21 05/18/21 05/18/21 23:36 04:54 05:25 WBC 12.1 H RBC 3.11 L Hgb 8.8 L Hct 30.1 L MCV 96.8 MCH 28.3 MCHC 29.2 L RDW 14.2 Plt Count 127 L MPV 11.9 Immature Gran % (Auto) 1.7 H Neut % (Auto) 86.0 H Lymph % (Auto) 5.8 L [place] % (Auto) 3.4 Eos % (Auto) 3.0 Baso % (Auto) 0.1 Lymph # (Auto) 0.7 L [place] # (Auto) 0.4 Eos # (Auto) 0.4 Baso # (Auto) 0.0 Abs Immat Gran (auto) 0.21 H Absolute Neuts (auto) 10.4 H Absolute Nucleated RBC 0.000 Nucleated RBC % (auto) 0.0 VBG pH VBG pCO2 VBG pO2 VBG HCO3 VBG O2 Saturation VBG Base Excess Sodium Potassium Chloride Carbon Dioxide Anion Gap BUN Creatinine Estim Creat Clear Calc Estimated GFR POC Glucose 100 131 H Random Glucose Calcium Phosphorus Magnesium Albumin 05/18/21 05/18/21 05/18/21 05:25 05:31 11:59 WBC RBC Hgb Hct MCV MCH MCHC RDW Plt Count MPV Immature Gran % (Auto) Neut % (Auto) Lymph % (Auto) [place] % (Auto) Eos % (Auto) Baso % (Auto) Lymph # (Auto) [place] # (Auto) Eos # (Auto) Baso # (Auto) Abs Immat Gran (auto) Absolute Neuts (auto) Absolute Nucleated RBC Nucleated RBC % (auto) VBG pH 7.39 VBG pCO2 55 VBG pO2 51 VBG HCO3 34 H VBG O2 Saturation 81.0 VBG Base Excess 8.2 Sodium 150 H Potassium 4.9 Chloride 108 Carbon Dioxide 30 H Anion Gap 17 BUN 86 H Creatinine 2.22 H Estim Creat Clear Calc 39.7 Estimated GFR 30 POC Glucose 195 H Random Glucose 146 H D Calcium 8.7 Phosphorus 4.7 H Magnesium 2.0 Albumin 3.7 D Microbiology Microbiology Results: Microbiology 05/17/21 15:20 Sputum - Suctioned Gram Stain - Final 05/17/21 15:20 Sputum - Suctioned Sputum Culture - Preliminary Culture in progress. 05/15/21 08:25 Blood - Venous Blood Culture - Preliminary No growth after 48 hours. 05/15/21 08:25 Blood - Venous Blood Culture - Preliminary No growth after 48 hours. 05/13/21 Unknown Urine Catheterized - Camacho Catheter Urine Culture - Final Serratia marcescens 04/28/21 22:17 Blood - Venous Blood Culture - Final No growth after 5 days. 04/28/21 22:17 Blood - Venous Blood Culture - Final No growth after 5 days. Progress Note: A&P Assessment and plan (1) CHF (congestive heart failure): Status: Acute (2) Type 2 diabetes mellitus: Status: Acute (3) ARDS (adult respiratory distress syndrome): Status: Acute (4) Acute hypoxemic respiratory failure due to COVID-19: Status: Acute (5) Acute kidney injury superimposed on CKD: Status: Acute (6) AV block: Status: Acute Assessment and Plan: Assessment: 66-year-old gentleman with underlying history of hypertension, CHF, diabetes mellitus admitted with acute hypoxic respiratory failure secondary to COVID-19 ARDS, requiring ventilatory support and further complicated by acute renal failure and chronotropic insufficiency Plan: Neuro: No acute issues. Cardiac: Mobitz type 2 status post temporary pacemaker, a removed 01/27/2021, as patient has not required any pacing for 48 hours prior. Cardiology service care appreciated. Underlying congestive heart failure. Continue with judicious diuresis. Pulmonary: Acute hypoxic respiratory failure secondary to COVID-19 ARDS now requiring ventilatory support. Continue to titrate off ventilatory support as tolerated. Renal: Acute renal failure on the background of chronic kidney disease, likely secondary to COVID-19. Renal function up and down. Nephrology service care appreciated. Continue to monitor electrolytes, renal indices, and urine output. May require dialysis. Endo: No acute issues. GI: No acute issues. ID: COVID-19, initially on systemic glucocorticoids, now held secondary to development of acute blood loss anemia. Serratia UTI, completed 5 days of IV antibiotics. Heme/Onc: No rebleeding. Hemoglobin stabilized. Eliquis, aspirin, and systemic glucocorticoids held. Psych: No acute issues. Miscellaneous: No acute issues. Prophylaxis: Intermittent pneumatic compression , famotidine Diet: tube feeds Critical care time spent: 45 minutes Quality Stroke Does the patient have a stroke diagnosis?: No VTE Prior VTE?: No VTE Risk Level:: Medical - moderate - high VTE Device Contraindication: Treatment Not Indicated VTE Drug Contraindication: N/A - Med Ordered
[2021-05-18] MEDS: Furosemide 40 MG/4 ML VIAL IVPUSH (13:49)
[2021-05-18] MEDS: 0.9 % Sodium Chloride Flush 3 ML SYRINGE IVFLUSH ×2 (16:10→23:23)
[2021-05-18 18:21] LABS: Glucose, Whole Blood 185 mg/dL (60-115)
[2021-05-18 18:48] LABS: Anion Gap 14 (12-20); Blood Urea Nitrogen 91 mg/dL (9-16); Calcium 8.5 mg/dL (8.4-10.2); Carbon Dioxide 31 mmol/L (22-29); Chloride 107 mmol/L (96-108); Creatinine Clr Calc Pharmacy 39.1; Estimated Glomerular Filt Rate 29; Glucose Random 201 mg/dL (60-115); Potassium 4.7 mmol/L (3.3-5.1); Sodium 147 mmol/L (135-145)
[2021-05-18] MEDS: Insulin Glargine,Hum.rec.anlog 100 UNIT/ML 10 ML VIAL 24 UNIT SUBCUT (19:59)
[2021-05-18] MEDS: Atorvastatin Calcium 20 MG TABLET PO (20:00)
[2021-05-18 20:47] LABS: Glucose, Whole Blood 152 mg/dL (60-115)
--- NOTE | 2021-05-18 22:22 | PC.NURSE ---
tmax 102.7, VSS on levophed gtt. Sr with 1st degree on tele. tylenol given per emar with good effect. Sedated on Propofol, versed turned off per MD. Weak cough/gag, pupils reactive. Vent settings remain the same, ls clear, scant inline secretions noted. tube feed at max rate, 240ml water flushes given q4hr. u/o wnl, 3 BMs, rbath given, repo q2hr prevalon mattress used.
[2021-05-19] VITALS (34 sets, daily range): BP systolic 97–155; BP diastolic 46–67; PULSE 58–104; RESP 12–27; TEMP 34.4–39.4; O2SAT 84–96; BMI 29.6
--- NOTE | 2021-05-19 | ECG_ITS ---
Test Reason : rhythm change Blood Pressure : / mmHG Vent. Rate : 073 BPM Atrial Rate : 000 BPM P-R Int : 000 ms QRS Dur : 082 ms QT Int : 424 ms P-R-T Axes : 000 -18 -69 degrees QTc Int : 467 ms Atrial fibrillation T wave abnormality, consider inferior ischemia T wave abnormality, consider anterolateral ischemia Prolonged QT Abnormal ECG When compared to the previous EKG of Afib present Anterolateral T wave inversions Referred By: Misael Munoz Electronically Signed By:Yobani Romero
[2021-05-19 01:09] LABS: Glucose, Whole Blood 175 mg/dL (60-115)
[2021-05-19] MEDS: propofoL 1,000 MG/100 ML VIAL 28.2 MG IVCONT ×6 (01:52→21:49)
[2021-05-19 05:39] LABS: VBG Base Excess 10.2 mmol/L; VBG HCO3 36 mmol/L (22-26); VBG pCO2 56 mmHg; VBG pH 7.41 (7.32-7.43); VBG pO2 54 mmHg
[2021-05-19 05:51] LABS: Glucose, Whole Blood 125 mg/dL (60-115)
[2021-05-19] MEDS: Albuterol/Iprat 2.5/0.5MG 3 ML AMPUL.NEB INHALE ×4 (05:52→23:48)
[2021-05-19 06:02] LABS: MANUAL DIFF FLAG NO
[2021-05-19 06:07] LABS: Basophils Percent Auto 0.1 % (0-2); Eosinophils Absolute Auto 0.5 X10*3/uL (0.0-0.4); Eosinophils Percent Auto 4.7 % (0-4); Hematocrit 29.4 % (42.0-52.0); Hemoglobin 8.7 g/dl (14.0-18.0); Imm Gran Abs Auto 0.11 X10*3/uL (0.00-0.03); Lymphocytes Absolute Auto 0.6 X10*3/uL (1.2-4.9); Lymphocytes Percent Auto 5.5 % (20-40); Mean Corpuscular HGB Conc 29.6 g/dl (31.0-36.0); Mean Corpuscular Hemoglobin 28.3 pg (27.0-33.0); Mean Corpuscular Volume 95.8 fL (80.0-98.0); Mean Platelet Volume 11.7 fL (9.4-12.4); Monocytes Absolute Auto 0.3 X10*3/uL (0.1-1.2); Neutrophils Absolute Auto 9.6 x10*3/uL (2.0-8.3); Neutrophils Percent Auto 85.7 % (45-73); Platelet Count 134 X10*3/uL (160-400); Red Blood Count 3.07 X10*6/uL (4.60-5.80); Red Cell Distribution Width 14.3 % (11.0-16.0); White Blood Count 11.2 X10*3/uL (4.8-10.8)
[2021-05-19] MEDS: Chlorhexidine Gluc Oral Rinse 15 ML MOUTHWASH BUCCAL ×3 (07:31→20:53)
[2021-05-19] MEDS: Furosemide 40 MG/4 ML VIAL IVPUSH ×2 (07:31→18:08)
[2021-05-19] MEDS: 0.9 % Sodium Chloride Flush 3 ML SYRINGE IVFLUSH ×2 (07:31→15:29)
[2021-05-19] MEDS: Famotidine/PF 20 MG/2 ML VIAL IVPUSH (07:31)
[2021-05-19] MEDS: Nystatin Powder 15 GM BOTTLE 1 APPL TOPICAL ×3 (07:31→20:54)
[2021-05-19 07:32] LABS: Albumin Level 3.2 g/dL (3.5-5.0); Anion Gap 15 (12-20); Blood Urea Nitrogen 89 mg/dL (9-16); Calcium 8.6 mg/dL (8.4-10.2); Carbon Dioxide 30 mmol/L (22-29); Chloride 107 mmol/L (96-108); Creatinine Clr Calc Pharmacy 44.5; Estimated Glomerular Filt Rate 34; Glucose Random 129 mg/dL (60-115); Phosphorus 4.8 mg/dL (2.7-4.5); Potassium 4.7 mmol/L (3.3-5.1); Sodium 147 mmol/L (135-145)
[2021-05-19] MEDS: Albumin Human 25 % 100 ML IV ×3 (08:32→19:33)
[2021-05-19 09:22] LABS: Venous Blood Gas Refer to POC result
--- NOTE | 2021-05-19 10:06 | MHC.CLN ---
F/U PT REMAINS INTUBATED AND SEDATED RECEIVING NEPRO AT MAX GOAL RATE 30ML/HR with 240CC FREE WATER Q 4 HRS PROVIDES 1296KCALS (2040KCALS WITH SEDATION; 23KCALS/KG), 58G PROTEIN (.6G/KG), 2382CC TOTAL WATER FROM FORMULA AND FLUSHES (27ML/KG) NA IMPROVED BUT REMAINS SLIGHTLY ELEVATED MONITOR TOLERANCE, RESIDUALS AND LYTES
--- NOTE | 2021-05-19 10:46 | PM.PNNEP ---
Subjective Subjective Date of Service: 06/10/21 Principal diagnosis: COVID, JÚNIOR, CKD Interval history: 66-year-old gentleman with underlying history hypertension congestive heart failure, diabetes mellitus, COVID positive on 04/19/2021, admitted on 04/28/2021 with shortness of breath and hypoxemia. Patient treated with systemic glucocorticoids. hospital course significant for worsening hypoxemia requiring transfer to intensive care unit on 05/09/2021 and intubation on 05/13/2021, progressive acute kidney injury, and development of Mobitz type 2 block requiring placement of temporary pacer on 05/13/2021. Temporary pacer taken out on 05/17/2021. No events overnight. No significant changes in FiO2 requirements. Physical Exam Vital Signs: Vital Signs: Last Vital Signs Temp 100.8 F H 05/19/21 10:00 Pulse 88 05/19/21 10:00 Resp 23 H 05/19/21 10:00 BP 129/46 L 05/19/21 10:00 Pulse Ox 89 L 05/19/21 10:00 Oxygen Flow Rate 15 04/28/21 21:37 BMI result Body Mass Index 29.6 Neck: Neck: Yes supple Chest: Chest palpation & inspection: No rash Cardio: Palpation: no palpable S3 Neuro: Motor exam (neuro): No Asterixis during motor activity present Objective Data Labs CBC & Chem 7: 06/10/21 05:20 06/10/21 05:20 Labs: Laboratory Results - last 24 hr 05/18/21 05/18/21 05/18/21 11:59 18:02 18:08 WBC RBC Hgb Hct MCV MCH MCHC RDW Plt Count MPV Immature Gran % (Auto) Neut % (Auto) Lymph % (Auto) [place] % (Auto) Eos % (Auto) Baso % (Auto) Lymph # (Auto) [place] # (Auto) Eos # (Auto) Baso # (Auto) Abs Immat Gran (auto) Absolute Neuts (auto) Absolute Nucleated RBC Nucleated RBC % (auto) VBG pH VBG pCO2 VBG pO2 VBG HCO3 VBG O2 Saturation VBG Base Excess Sodium 147 H Potassium 4.7 Chloride 107 Carbon Dioxide 31 H Anion Gap 14 BUN 91 H Creatinine 2.25 H Estim Creat Clear Calc 39.1 Estimated GFR 29 POC Glucose 195 H 185 H Random Glucose 201 H D Calcium 8.5 Phosphorus Magnesium Albumin 05/18/21 05/18/21 05/19/21 20:04 23:29 05:25 WBC 11.2 H RBC 3.07 L Hgb 8.7 L Hct 29.4 L MCV 95.8 MCH 28.3 MCHC 29.6 L RDW 14.3 Plt Count 134 L MPV 11.7 Immature Gran % (Auto) 1.0 H Neut % (Auto) 85.7 H Lymph % (Auto) 5.5 L [place] % (Auto) 3.0 Eos % (Auto) 4.7 H Baso % (Auto) 0.1 Lymph # (Auto) 0.6 L [place] # (Auto) 0.3 Eos # (Auto) 0.5 H Baso # (Auto) 0.0 Abs Immat Gran (auto) 0.11 H Absolute Neuts (auto) 9.6 H Absolute Nucleated RBC 0.000 Nucleated RBC % (auto) 0.0 VBG pH VBG pCO2 VBG pO2 VBG HCO3 VBG O2 Saturation VBG Base Excess Sodium Potassium Chloride Carbon Dioxide Anion Gap BUN Creatinine Estim Creat Clear Calc Estimated GFR POC Glucose 152 H 175 H Random Glucose Calcium Phosphorus Magnesium Albumin 05/19/21 05/19/21 05/19/21 05:25 05:32 05:35 WBC RBC Hgb Hct MCV MCH MCHC RDW Plt Count MPV Immature Gran % (Auto) Neut % (Auto) Lymph % (Auto) [place] % (Auto) Eos % (Auto) Baso % (Auto) Lymph # (Auto) [place] # (Auto) Eos # (Auto) Baso # (Auto) Abs Immat Gran (auto) Absolute Neuts (auto) Absolute Nucleated RBC Nucleated RBC % (auto) VBG pH 7.41 VBG pCO2 56 VBG pO2 54 VBG HCO3 36 H VBG O2 Saturation 84.0 VBG Base Excess 10.2 Sodium 147 H Potassium 4.7 Chloride 107 Carbon Dioxide 30 H Anion Gap 15 BUN 89 H Creatinine 1.99 H Estim Creat Clear Calc 44.5 Estimated GFR 34 POC Glucose 125 H Random Glucose 129 H D Calcium 8.6 Phosphorus 4.8 H Magnesium 2.0 Albumin 3.2 L Microbiology Microbiology Results: Microbiology 05/17/21 15:20 Sputum - Suctioned Gram Stain - Final 05/17/21 15:20 Sputum - Suctioned Sputum Culture - Final 05/15/21 08:25 Blood - Venous Blood Culture - Preliminary No growth after 48 hours. 05/15/21 08:25 Blood - Venous Blood Culture - Preliminary No growth after 48 hours. 05/13/21 Unknown Urine Catheterized - Camacho Catheter Urine Culture - Final Serratia marcescens 04/28/21 22:17 Blood - Venous Blood Culture - Final No growth after 5 days. 04/28/21 22:17 Blood - Venous Blood Culture - Final No growth after 5 days. Procedures Date of Service Date of Service: 05/19/21 Assessment & Plan Assessment and plan (1) JÚNIOR (acute kidney injury): Status: Inactive Assessment and Plan: (1) CKD (chronic kidney disease) stage 3, GFR 30-59 ml/min: ?Status:?Acute (2) SARS-CoV-2 positive: ?Status:?Acute ?Assessment and Plan: JÚNIOR due to compromised kidney perfusion in the setting of SARS COV 2 known CKD 3 due to DM/HTN followed by Dr Feldman Hypernatremia - due to free water deficit REC Add free water or D5W no indication for dialysis today sodium zirconium as needed to correct hyperkalemia Concur with current medical management follow kidney function and electrolytes Time Spent With Patient Time: Total time spent is greater than 50% in coordination of care (as documented) at patient's floor/unit and/or counseling patient: Progress Note: Quality Stroke Does the patient have a stroke diagnosis?: No
--- NOTE | 2021-05-19 11:14 | P.PNCC_ITS ---
Subjective Subjective Date of Service: 05/19/21 Interval History: 66-year-old gentleman with underlying history hypertension congestive heart failure, diabetes mellitus, COVID positive on 04/19/2021, admitted on 04/28/2021 with shortness of breath and hypoxemia. Patient treated with systemic glucocorticoids. hospital course significant for worsening hypoxemia requiring transfer to intensive care unit on 05/09/2021 and intubation on 05/13/2021, progressive acute kidney injury, and development of Mobitz type 2 block requiring placement of temporary pacer on 05/13/2021. Temporary pacer taken out on 05/17/2021. No events overnight. Minor fluctuations in kidney function and FiO2 requ irements. Critical Care Time (minutes): 45 Physical Exam Vital Signs: Vital Signs: Last Vital Signs Temp 101.3 F H 05/19/21 11:00 Pulse 84 05/19/21 11:00 Resp 23 H 05/19/21 11:00 BP 134/61 05/19/21 11:00 Pulse Ox 93 05/19/21 11:00 Oxygen Flow Rate 15 04/28/21 21:37 BMI result Body Mass Index 29.6 Const: General: no acute distress and other ( sedated on the vent) Eyes: Sclerae: sclerae normal EOM: EOMs intact bilaterally Neck: Neck: Yes no lymphadenopathy, Yes trachea midline and Yes supple Resp: Auscultation: crackles ( diffuse bilateral) Cardio: Rate: regular rate Rhythm: regular rhythm Heart sounds: no gallops, no murmurs and no rubs GI: Palpation (GI): Soft to palpation and Other GI palpation findings present ( Nontender) Auscultation: normal bowel sounds Extrem: General: No clubbing, No cyanosis and Yes pedal edema ( 1+ bilateral) Objective Data Labs CBC & Chem 7: 05/19/21 05:25 05/19/21 05:25 Labs: Laboratory Results - last 24 hr 05/18/21 05/18/21 05/18/21 11:59 18:02 18:08 WBC RBC Hgb Hct MCV MCH MCHC RDW Plt Count MPV Immature Gran % (Auto) Neut % (Auto) Lymph % (Auto) [place] % (Auto) Eos % (Auto) Baso % (Auto) Lymph # (Auto) [place] # (Auto) Eos # (Auto) Baso # (Auto) Abs Immat Gran (auto) Absolute Neuts (auto) Absolute Nucleated RBC Nucleated RBC % (auto) VBG pH VBG pCO2 VBG pO2 VBG HCO3 VBG O2 Saturation VBG Base Excess Sodium 147 H Potassium 4.7 Chloride 107 Carbon Dioxide 31 H Anion Gap 14 BUN 91 H Creatinine 2.25 H Estim Creat Clear Calc 39.1 Estimated GFR 29 POC Glucose 195 H 185 H Random Glucose 201 H D Calcium 8.5 Phosphorus Magnesium Albumin 05/18/21 05/18/21 05/19/21 20:04 23:29 05:25 WBC 11.2 H RBC 3.07 L Hgb 8.7 L Hct 29.4 L MCV 95.8 MCH 28.3 MCHC 29.6 L RDW 14.3 Plt Count 134 L MPV 11.7 Immature Gran % (Auto) 1.0 H Neut % (Auto) 85.7 H Lymph % (Auto) 5.5 L [place] % (Auto) 3.0 Eos % (Auto) 4.7 H Baso % (Auto) 0.1 Lymph # (Auto) 0.6 L [place] # (Auto) 0.3 Eos # (Auto) 0.5 H Baso # (Auto) 0.0 Abs Immat Gran (auto) 0.11 H Absolute Neuts (auto) 9.6 H Absolute Nucleated RBC 0.000 Nucleated RBC % (auto) 0.0 VBG pH VBG pCO2 VBG pO2 VBG HCO3 VBG O2 Saturation VBG Base Excess Sodium Potassium Chloride Carbon Dioxide Anion Gap BUN Creatinine Estim Creat Clear Calc Estimated GFR POC Glucose 152 H 175 H Random Glucose Calcium Phosphorus Magnesium Albumin 05/19/21 05/19/21 05/19/21 05:25 05:32 05:35 WBC RBC Hgb Hct MCV MCH MCHC RDW Plt Count MPV Immature Gran % (Auto) Neut % (Auto) Lymph % (Auto) [place] % (Auto) Eos % (Auto) Baso % (Auto) Lymph # (Auto) [place] # (Auto) Eos # (Auto) Baso # (Auto) Abs Immat Gran (auto) Absolute Neuts (auto) Absolute Nucleated RBC Nucleated RBC % (auto) VBG pH 7.41 VBG pCO2 56 VBG pO2 54 VBG HCO3 36 H VBG O2 Saturation 84.0 VBG Base Excess 10.2 Sodium 147 H Potassium 4.7 Chloride 107 Carbon Dioxide 30 H Anion Gap 15 BUN 89 H Creatinine 1.99 H Estim Creat Clear Calc 44.5 Estimated GFR 34 POC Glucose 125 H Random Glucose 129 H D Calcium 8.6 Phosphorus 4.8 H Magnesium 2.0 Albumin 3.2 L Microbiology Microbiology Results: Microbiology 05/17/21 15:20 Sputum - Suctioned Gram Stain - Final 05/17/21 15:20 Sputum - Suctioned Sputum Culture - Final 05/15/21 08:25 Blood - Venous Blood Culture - Preliminary No growth after 48 hours. 05/15/21 08:25 Blood - Venous Blood Culture - Preliminary No growth after 48 hours. 05/13/21 Unknown Urine Catheterized - Camacho Catheter Urine Culture - Final Serratia marcescens 04/28/21 22:17 Blood - Venous Blood Culture - Final No growth after 5 days. 04/28/21 22:17 Blood - Venous Blood Culture - Final No growth after 5 days. Progress Note: A&P Assessment and plan (1) AV block: Status: Acute (2) CHF (congestive heart failure): Status: Acute (3) Type 2 diabetes mellitus: Status: Acute (4) JÚNIOR (acute kidney injury): Status: Acute (5) ARDS (adult respiratory distress syndrome): Status: Acute (6) Acute hypoxemic respiratory failure due to COVID-19: Status: Acute (7) CKD (chronic kidney disease) stage 3, GFR 30-59 ml/min: Status: Acute Assessment and Plan: Assessment: 66-year-old gentleman with underlying history of hypertension, CHF, diabetes mellitus admitted with acute hypoxic respiratory failure secondary to COVID-19 ARDS, requiring ventilatory support and further complicated by acute renal failure and chronotropic insufficiency Plan: Neuro: No acute issues. Cardiac: Mobitz type 2 status post temporary pacemaker, a removed 01/27/2021, as patient has not required any pacing for 48 hours prior. Cardiology service care appreciated. Underlying congestive heart failure. Continue with judicious diuresis. Pulmonary: Acute hypoxic respiratory failure secondary to COVID-19 ARDS now requiring ventilatory support. Continue to titrate off ventilatory support as t olerated. Renal: Acute renal failure on the background of chronic kidney disease, likely secondary to COVID-19. Renal function up and down. Nephrology service care appreciated. Continue to monitor electrolytes, renal indices, and urine output. May require dialysis. Endo: No acute issues. GI: No acute issues. ID: COVID-19, initially on systemic glucocorticoids, now held secondary to development of acute blood loss anemia. Serratia UTI, completed 5 days of IV antibiotics. Heme/Onc: No rebleeding. Hemoglobin stabilized. Eliquis, aspirin, and systemic glucocorticoids stopped. Will start on subcutaneous heparin. Psych: No acute issues. Miscellaneous: No acute issues. Prophylaxis: heparin , famotidine Diet: tube feeds Critical care time spent: 45 minutes Quality Stroke Does the patient have a stroke diagnosis?: No VTE Prior VTE?: No VTE Risk Level:: Medical - moderate - high VTE Device Contraindication: Treatment Not Indicated VTE Drug Contraindication: N/A - Med Ordered
[2021-05-19] MEDS: Insulin Lispro 100 UNIT/ML 3 ML VIAL SUBCUT ×2 (11:28→18:08)
[2021-05-19 11:29] LABS: Glucose, Whole Blood 175 mg/dL (60-115)
[2021-05-19] MEDS: Heparin Sodium,Porcine 5,000 UNIT/ML VIAL 5000 UNIT SUBCUT ×2 (13:32→19:33)
[2021-05-19] MEDS: Acetaminophen Oral Liquid 650 MG/20.3 ML SOLUTION PO (13:51)
[2021-05-19] MEDS: propofoL 1,000 MG/100 ML VIAL 22.56 MG IVCONT (15:28)
[2021-05-19 18:03] LABS: Glucose, Whole Blood 187 mg/dL (60-115)
[2021-05-19] MEDS: cefEPime HCl 1 GM in 0.9 % Sodium Chloride 50 ML IV (18:07)
[2021-05-19] MEDS: Insulin Glargine,Hum.rec.anlog 100 UNIT/ML 10 ML VIAL 24 UNIT SUBCUT (20:53)
[2021-05-19] MEDS: Atorvastatin Calcium 20 MG TABLET PO (20:54)
[2021-05-19 23:58] LABS: Glucose, Whole Blood 188 mg/dL (60-115)
[2021-05-20] VITALS (40 sets, daily range): BP systolic 99–149; BP diastolic 48–73; PULSE 53–103; RESP 13–29; TEMP 35–38.6; O2SAT 87–93; BMI 29.2
[2021-05-20] MEDS: Insulin Lispro 100 UNIT/ML 3 ML VIAL SUBCUT ×5 (00:08→23:27)
[2021-05-20] MEDS: 0.9 % Sodium Chloride Flush 3 ML SYRINGE IVFLUSH ×2 (00:08→07:15)
[2021-05-20] MEDS: Acetaminophen Oral Liquid 650 MG/20.3 ML SOLUTION PO (00:14)
[2021-05-20] MEDS: propofoL 1,000 MG/100 ML VIAL 28.2 MG IVCONT ×8 (01:20→23:26)
[2021-05-20] MEDS: Albumin Human 25 % 100 ML IV (01:21)
[2021-05-20] MEDS: Heparin Sodium,Porcine 5,000 UNIT/ML VIAL 5000 UNIT SUBCUT ×3 (02:37→19:50)
[2021-05-20] MEDS: Albuterol/Iprat 2.5/0.5MG 3 ML AMPUL.NEB INHALE ×4 (05:13→23:15)
[2021-05-20 05:30] LABS: VBG Base Excess 4.4 mmol/L; VBG HCO3 30 mmol/L (22-26); VBG pCO2 52 mmHg; VBG pH 7.36 (7.32-7.43); VBG pO2 50 mmHg
[2021-05-20 05:34] LABS: Venous Blood Gas Refer to POC result
[2021-05-20] MEDS: cefEPime HCl 1 GM in 0.9 % Sodium Chloride 50 ML IV ×2 (05:34→17:03)
[2021-05-20 05:42] LABS: MANUAL DIFF FLAG NO
[2021-05-20 05:46] LABS: Basophils Percent Auto 0.1 % (0-2); Eosinophils Absolute Auto 0.4 X10*3/uL (0.0-0.4); Eosinophils Percent Auto 3.4 % (0-4); Hematocrit 27.6 % (42.0-52.0); Hemoglobin 8.2 g/dl (14.0-18.0); Imm Gran Abs Auto 0.15 X10*3/uL (0.00-0.03); Imm Gran Pct Auto 1.4 % (0.0-0.4); Lymphocytes Absolute Auto 0.9 X10*3/uL (1.2-4.9); Lymphocytes Percent Auto 8.7 % (20-40); Mean Corpuscular HGB Conc 29.7 g/dl (31.0-36.0); Mean Corpuscular Hemoglobin 28.4 pg (27.0-33.0); Mean Corpuscular Volume 95.5 fL (80.0-98.0); Mean Platelet Volume 12.3 fL (9.4-12.4); Monocytes Absolute Auto 0.4 X10*3/uL (0.1-1.2); Monocytes Percent Auto 3.3 % (2-11); Neutrophils Absolute Auto 8.9 x10*3/uL (2.0-8.3); Neutrophils Percent Auto 83.1 % (45-73); Platelet Count 167 X10*3/uL (160-400); Red Blood Count 2.89 X10*6/uL (4.60-5.80); Red Cell Distribution Width 14.3 % (11.0-16.0); White Blood Count 10.8 X10*3/uL (4.8-10.8)
[2021-05-20 06:03] LABS: Albumin Level 3.8 g/dL (3.5-5.0); Anion Gap 17 (12-20); Blood Urea Nitrogen 98 mg/dL (9-16); Calcium 8.7 mg/dL (8.4-10.2); Carbon Dioxide 28 mmol/L (22-29); Chloride 104 mmol/L (96-108); Creatinine Clr Calc Pharmacy 35.7; Estimated Glomerular Filt Rate 26; Glucose Random 206 mg/dL (60-115); Magnesium 2.1 mg/dL (1.6-2.6); Phosphorus 4.8 mg/dL (2.7-4.5); Potassium 4.6 mmol/L (3.3-5.1); Sodium 144 mmol/L (135-145)
[2021-05-20 06:04] LABS: Glucose, Whole Blood 181 mg/dL (60-115)
[2021-05-20] MEDS: Famotidine/PF 20 MG/2 ML VIAL IVPUSH (08:27)
[2021-05-20] MEDS: Nystatin Powder 15 GM BOTTLE 1 APPL TOPICAL ×3 (08:27→22:38)
[2021-05-20] MEDS: Chlorhexidine Gluc Oral Rinse 15 ML MOUTHWASH BUCCAL ×3 (08:27→19:51)
[2021-05-20] MEDS: Furosemide 40 MG/4 ML VIAL IVPUSH (08:27)
[2021-05-20] MEDS: Rocuronium Bromide 50 MG/5 ML VIAL IVPUSH ×2 (09:26→16:26)
[2021-05-20] MEDS: Furosemide 200 MG in 0.9 % Sodium Chloride 80 ML IVCONT (09:28)
--- NOTE | 2021-05-20 10:05 | P.PNCC_ITS ---
Subjective Subjective Date of Service: 05/20/21 Interval History: 66-year-old gentleman with underlying history hypertension congestive heart failure, diabetes mellitus, COVID positive on 04/19/2021, admitted on 04/28/2021 with shortness of breath and hypoxemia. Patient treated with systemic glucocorticoids. hospital course significant for worsening hypoxemia requiring transfer to intensive care unit on 05/09/2021 and intubation on 05/13/2021, progressive acute kidney injury, and development of Mobitz type 2 block requiring placement of temporary pacer on 05/13/2021. Temporary pacer taken out on 05/17/2021. No events overnight. Continues to require p.r.n. paralytic boluses for v entilator synchrony. Critical Care Time (minutes): 45 Physical Exam Vital Signs: Vital Signs: Last Vital Signs Temp 101.1 F H 05/20/21 10:00 Pulse 103 H 05/20/21 10:00 Resp 20 05/20/21 10:00 BP 129/68 05/20/21 10:00 Pulse Ox 93 05/20/21 10:00 Oxygen Flow Rate 15 04/28/21 21:37 BMI result Body Mass Index 29.2 Const: General: no acute distress and other (Sedated on the vent) Eyes: Sclerae: sclerae normal EOM: EOMs intact bilaterally Neck: Neck: Yes no lymphadenopathy, Yes trachea midline and Yes supple Resp: Auscultation: crackles (Diffuse bilateral) Cardio: Rate: regular rate Rhythm: regular rhythm Heart sounds: no gallops, no murmurs and no rubs GI: Palpation (GI): Soft to palpation and Other GI palpation findings present ( Nontender) Auscultation: normal bowel sounds Extrem: General: No clubbing, No cyanosis and Yes pedal edema (Trace bilateral) Objective Data Labs CBC & Chem 7: 05/20/21 05:22 05/20/21 05:22 Labs: Laboratory Results - last 24 hr 05/19/21 05/19/21 05/19/21 11:25 17:59 23:53 WBC RBC Hgb Hct MCV MCH MCHC RDW Plt Count MPV Immature Gran % (Auto) Neut % (Auto) Lymph % (Auto) [place] % (Auto) Eos % (Auto) Baso % (Auto) Lymph # (Auto) [place] # (Auto) Eos # (Auto) Baso # (Auto) Abs Immat Gran (auto) Absolute Neuts (auto) Absolute Nucleated RBC Nucleated RBC % (auto) VBG pH VBG pCO2 VBG pO2 VBG HCO3 VBG O2 Saturation VBG Base Excess Sodium Potassium Chloride Carbon Dioxide Anion Gap BUN Creatinine Estim Creat Clear Calc Estimated GFR POC Glucose 175 H 187 H 188 H Random Glucose Calcium Phosphorus Magnesium Albumin 05/20/21 05/20/21 05/20/21 05:22 05:22 05:24 WBC 10.8 RBC 2.89 L Hgb 8.2 L Hct 27.6 L MCV 95.5 MCH 28.4 MCHC 29.7 L RDW 14.3 Plt Count 167 MPV 12.3 Immature Gran % (Auto) 1.4 H Neut % (Auto) 83.1 H Lymph % (Auto) 8.7 L [place] % (Auto) 3.3 Eos % (Auto) 3.4 Baso % (Auto) 0.1 Lymph # (Auto) 0.9 L [place] # (Auto) 0.4 Eos # (Auto) 0.4 Baso # (Auto) 0.0 Abs Immat Gran (auto) 0.15 H Absolute Neuts (auto) 8.9 H Absolute Nucleated RBC 0.000 Nucleated RBC % (auto) 0.0 VBG pH 7.36 VBG pCO2 52 VBG pO2 50 VBG HCO3 30 H VBG O2 Saturation 78.0 VBG Base Excess 4.4 Sodium 144 Potassium 4.6 Chloride 104 Carbon Dioxide 28 Anion Gap 17 BUN 98 H Creatinine 2.48 H Estim Creat Clear Calc 35.7 Estimated GFR 26 POC Glucose Random Glucose 206 H D Calcium 8.7 Phosphorus 4.8 H Magnesium 2.1 Albumin 3.8 05/20/21 05:39 WBC RBC Hgb Hct MCV MCH MCHC RDW Plt Count MPV Immature Gran % (Auto) Neut % (Auto) Lymph % (Auto) [place] % (Auto) Eos % (Auto) Baso % (Auto) Lymph # (Auto) [place] # (Auto) Eos # (Auto) Baso # (Auto) Abs Immat Gran (auto) Absolute Neuts (auto) Absolute Nucleated RBC Nucleated RBC % (auto) VBG pH VBG pCO2 VBG pO2 VBG HCO3 VBG O2 Saturation VBG Base Excess Sodium Potassium Chloride Carbon Dioxide Anion Gap BUN Creatinine Estim Creat Clear Calc Estimated GFR POC Glucose 181 H Random Glucose Calcium Phosphorus Magnesium Albumin Microbiology Microbiology Results: Microbiology 05/17/21 15:20 Sputum - Suctioned Gram Stain - Final 05/17/21 15:20 Sputum - Suctioned Sputum Culture - Final 05/15/21 08:25 Blood - Venous Blood Culture - Preliminary No growth after 48 hours. 05/15/21 08:25 Blood - Venous Blood Culture - Preliminary No growth after 48 hours. 05/13/21 Unknown Urine Catheterized - Camacho Catheter Urine Culture - Final Serratia marcescens 04/28/21 22:17 Blood - Venous Blood Culture - Final No growth after 5 days. 04/28/21 22:17 Blood - Venous Blood Culture - Final No growth after 5 days. Progress Note: A&P Assessment and plan (1) AV block: Status: Acute (2) Type 2 diabetes mellitus: Status: Acute (3) ARDS (adult respiratory distress syndrome): Status: Acute (4) Acute kidney injury superimposed on CKD: Status: Acute (5) CHF (congestive heart failure): Status: Acute (6) Acute hypoxemic respiratory failure due to COVID-19: Status: Acute (7) Diabetes: Status: Acute Assessment and Plan: Assessment: 66-year-old gentleman with underlying history of hypertension, CHF, diabetes mellitus admitted with acute hypoxic respiratory failure secondary to COVID-19 ARDS, requiring ventilatory support and further complicated by acute renal failure and chronotropic insufficiency Plan: Neuro: No acute issues. Cardiac: Mobitz type 2 status post temporary pacemaker, a removed 01/27/2021, as patient has not required any pacing for 48 hours prior. Cardiology service care appreciated. Underlying congestive heart failure. Continue with judicious diuresis. Pulmonary: Acute hypoxic respiratory failure secondary to COVID-19 ARDS now requiring ventilatory support. Continue to titrate off ventilatory support as tolerated. Renal: Acute renal failure on the background of chronic kidney disease, likely secondary to COVID-19. Renal function up and down. Nephrology service care appreciated. Continue to monitor electrolytes, renal indices, and urine output. May require dialysis. Endo: No acute issues. GI: No acute issues. ID: COVID-19, initially on systemic glucocorticoids, now held secondary to development of acute blood loss anemia. Serratia UTI, completed 5 days of IV antibiotics. Heme/Onc: Hemoglobin stabilized. Will restart on aspirin. Psych: No acute issues. Miscellaneous: No acute issues. Prophylaxis: heparin , famotidine Diet: tube feeds Critical care time spent: 45 minutes Quality Stroke Does the patient have a stroke diagnosis?: No VTE Prior VTE?: No VTE Risk Level:: Medical - moderate - high VTE Device Contraindication: Treatment Not Indicated VTE Drug Contraindication: N/A - Med Ordered
--- NOTE | 2021-05-20 10:48 | P.PNNP_ITS ---
Subjective Subjective Date of Service: 06/13/21 Principal diagnosis: COVID, JÚNIOR, CKD Interval history: Events noted Vent dependent Physical Exam Vital Signs: Vital Signs: Last Vital Signs Temp 101.1 F H 05/20/21 10:00 Pulse 103 H 05/20/21 10:00 Resp 20 05/20/21 10:00 BP 129/68 05/20/21 10:00 Pulse Ox 93 05/20/21 10:00 Oxygen Flow Rate 15 04/28/21 21:37 BMI result Body Mass Index 29.2 Neck: Neck: Yes supple Chest: Chest palpation & inspection: No rash Cardio: Palpation: no palpable S3 Neuro: Motor exam (neuro): No Asterixis during motor activity present Objective Data Labs CBC & Chem 7: 06/13/21 05:30 06/13/21 05:30 Labs: Laboratory Results - last 24 hr 05/19/21 05/19/21 05/19/21 11:25 17:59 23:53 WBC RBC Hgb Hct MCV MCH MCHC RDW Plt Count MPV Immature Gran % (Auto) Neut % (Auto) Lymph % (Auto) [place] % (Auto) Eos % (Auto) Baso % (Auto) Lymph # (Auto) [place] # (Auto) Eos # (Auto) Baso # (Auto) Abs Immat Gran (auto) Absolute Neuts (auto) Absolute Nucleated RBC Nucleated RBC % (auto) VBG pH VBG pCO2 VBG pO2 VBG HCO3 VBG O2 Saturation VBG Base Excess Sodium Potassium Chloride Carbon Dioxide Anion Gap BUN Creatinine Estim Creat Clear Calc Estimated GFR POC Glucose 175 H 187 H 188 H Random Glucose Calcium Phosphorus Magnesium Albumin 05/20/21 05/20/21 05/20/21 05:22 05:22 05:24 WBC 10.8 RBC 2.89 L Hgb 8.2 L Hct 27.6 L MCV 95.5 MCH 28.4 MCHC 29.7 L RDW 14.3 Plt Count 167 MPV 12.3 Immature Gran % (Auto) 1.4 H Neut % (Auto) 83.1 H Lymph % (Auto) 8.7 L [place] % (Auto) 3.3 Eos % (Auto) 3.4 Baso % (Auto) 0.1 Lymph # (Auto) 0.9 L [place] # (Auto) 0.4 Eos # (Auto) 0.4 Baso # (Auto) 0.0 Abs Immat Gran (auto) 0.15 H Absolute Neuts (auto) 8.9 H Absolute Nucleated RBC 0.000 Nucleated RBC % (auto) 0.0 VBG pH 7.36 VBG pCO2 52 VBG pO2 50 VBG HCO3 30 H VBG O2 Saturation 78.0 VBG Base Excess 4.4 Sodium 144 Potassium 4.6 Chloride 104 Carbon Dioxide 28 Anion Gap 17 BUN 98 H Creatinine 2.48 H Estim Creat Clear Calc 35.7 Estimated GFR 26 POC Glucose Random Glucose 206 H D Calcium 8.7 Phosphorus 4.8 H Magnesium 2.1 Albumin 3.8 05/20/21 05:39 WBC RBC Hgb Hct MCV MCH MCHC RDW Plt Count MPV Immature Gran % (Auto) Neut % (Auto) Lymph % (Auto) [place] % (Auto) Eos % (Auto) Baso % (Auto) Lymph # (Auto) [place] # (Auto) Eos # (Auto) Baso # (Auto) Abs Immat Gran (auto) Absolute Neuts (auto) Absolute Nucleated RBC Nucleated RBC % (auto) VBG pH VBG pCO2 VBG pO2 VBG HCO3 VBG O2 Saturation VBG Base Excess Sodium Potassium Chloride Carbon Dioxide Anion Gap BUN Creatinine Estim Creat Clear Calc Estimated GFR POC Glucose 181 H Random Glucose Calcium Phosphorus Magnesium Albumin Microbiology Microbiology Results: Microbiology 05/15/21 08:25 Blood - Venous Blood Culture - Final No growth after 5 days. 05/15/21 08:25 Blood - Venous Blood Culture - Final No growth after 5 days. 05/17/21 15:20 Sputum - Suctioned Gram Stain - Final 05/17/21 15:20 Sputum - Suctioned Sputum Culture - Final 05/13/21 Unknown Urine Catheterized - Camacho Catheter Urine Culture - Final Serratia marcescens 04/28/21 22:17 Blood - Venous Blood Culture - Final No growth after 5 days. 04/28/21 22:17 Blood - Venous Blood Culture - Final No growth after 5 days. Procedures Date of Service Date of Service: 05/20/21 Assessment & Plan Assessment and plan (1) JÚNIOR (acute kidney injury): Status: Acute Assessment and Plan: (1) CKD (chronic kidney disease) stage 3, GFR 30-59 ml/min: ?Status:?Acute (2) SARS-CoV-2 positive: ?Status:?Acute ?Assessment and Plan: JÚNIOR due to compromised kidney perfusion in the setting of SARS COV 2 known CKD 3 due to DM/HTN followed by Dr Feldman Hypernatremia - due to free water deficit - corrected REC no indication for dialysis today sodium zirconium as needed to correct hyperkalemia Concur with current medical management follow kidney function and electrolytes Time Spent With Patient Time: Total time spent is greater than 50% in coordination of care (as doc umented) at patient's floor/unit and/or counseling patient: Progress Note: Quality Stroke Does the patient have a stroke diagnosis?: No
[2021-05-20 11:50] LABS: Glucose, Whole Blood 166 mg/dL (60-115)
[2021-05-20] MEDS: methylPREDNISolone Sod Succ 40 MG/ML VIAL IVPUSH (11:54)
[2021-05-20 18:04] LABS: Glucose, Whole Blood 227 mg/dL (60-115)
[2021-05-20] MEDS: Atorvastatin Calcium 20 MG TABLET PO (19:51)
[2021-05-20] MEDS: Insulin Glargine,Hum.rec.anlog 100 UNIT/ML 10 ML VIAL 24 UNIT SUBCUT (21:20)
[2021-05-20 23:25] LABS: Glucose, Whole Blood 244 mg/dL (60-115)
[2021-05-21] VITALS (32 sets, daily range): BP systolic 103–159; BP diastolic 50–73; PULSE 73–96; RESP 16–30; TEMP 35–37.7; O2SAT 88–95; BMI 30.7
[2021-05-21] MEDS: Heparin Sodium,Porcine 5,000 UNIT/ML VIAL 5000 UNIT SUBCUT ×3 (02:37→19:33)
[2021-05-21] MEDS: propofoL 1,000 MG/100 ML VIAL 28.2 MG IVCONT ×3 (02:37→08:53)
[2021-05-21] MEDS: Albuterol/Iprat 2.5/0.5MG 3 ML AMPUL.NEB INHALE ×3 (05:10→18:20)
[2021-05-21] MEDS: Insulin Lispro 100 UNIT/ML 3 ML VIAL SUBCUT ×4 (05:42→22:39)
[2021-05-21 05:44] LABS: VBG Base Excess 4.2 mmol/L; VBG HCO3 30 mmol/L (22-26); VBG pCO2 51 mmHg; VBG pH 7.37 (7.32-7.43); VBG pO2 59 mmHg
[2021-05-21 05:45] LABS: MANUAL DIFF FLAG NO
[2021-05-21 05:50] LABS: Basophils Percent Auto 0.1 % (0-2); Eosinophils Percent Auto 0.1 % (0-4); Hematocrit 25.9 % (42.0-52.0); Hemoglobin 7.9 g/dl (14.0-18.0); Imm Gran Abs Auto 0.19 X10*3/uL (0.00-0.03); Imm Gran Pct Auto 2.1 % (0.0-0.4); Lymphocytes Absolute Auto 0.7 X10*3/uL (1.2-4.9); Lymphocytes Percent Auto 7.1 % (20-40); Mean Corpuscular HGB Conc 30.5 g/dl (31.0-36.0); Mean Corpuscular Hemoglobin 28.1 pg (27.0-33.0); Mean Corpuscular Volume 92.2 fL (80.0-98.0); Mean Platelet Volume 12.3 fL (9.4-12.4); Monocytes Absolute Auto 0.3 X10*3/uL (0.1-1.2); Monocytes Percent Auto 3.2 % (2-11); Neutrophils Percent Auto 87.4 % (45-73); Platelet Count 179 X10*3/uL (160-400); Red Blood Count 2.81 X10*6/uL (4.60-5.80); White Blood Count 9.1 X10*3/uL (4.8-10.8)
[2021-05-21 05:58] LABS: Glucose, Whole Blood 169 mg/dL (60-115)
[2021-05-21 05:59] LABS: Venous Blood Gas Refer to POC result
[2021-05-21 06:06] LABS: Albumin Level 3.4 g/dL (3.5-5.0); Anion Gap 17 (12-20); Blood Urea Nitrogen 117 mg/dL (9-16); Calcium 8.6 mg/dL (8.4-10.2); Carbon Dioxide 27 mmol/L (22-29); Chloride 103 mmol/L (96-108); Creatinine Clr Calc Pharmacy 36.4; Estimated Glomerular Filt Rate 27; Glucose Random 195 mg/dL (60-115); Magnesium 2.2 mg/dL (1.6-2.6); Phosphorus 5.8 mg/dL (2.7-4.5); Potassium 4.5 mmol/L (3.3-5.1); Sodium 142 mmol/L (135-145)
[2021-05-21] MEDS: cefEPime HCl 1 GM in 0.9 % Sodium Chloride 50 ML IV (06:18)
[2021-05-21] MEDS: Chlorhexidine Gluc Oral Rinse 15 ML MOUTHWASH BUCCAL ×3 (08:19→19:32)
[2021-05-21] MEDS: Aspirin 81 MG TAB.CHEW PO (08:19)
[2021-05-21] MEDS: Famotidine/PF 20 MG/2 ML VIAL IVPUSH (08:19)
[2021-05-21] MEDS: Nystatin Powder 15 GM BOTTLE 1 APPL TOPICAL ×3 (08:21→19:34)
[2021-05-21] MEDS: Furosemide 200 MG in 0.9 % Sodium Chloride 80 ML IVCONT (08:52)
--- NOTE | 2021-05-21 09:03 | PM.CCPN ---
Subjective Subjective Date of Service: 05/21/21 Interval History: ICU day 12 for acute hypoxic respiratory failure, COVID-19 ARDS, and JÚNIOR. 66-year-old gentleman with underlying history hypertension congestive heart failure, diabetes mellitus, COVID positive on 04/19/2021, admitted on 04/28/2021 with shortness of breath and hypoxemia. Patient treated with systemic glucocorticoids. hospital course significant for worsening hypoxemia requiring transfer to intensive care unit on 05/09/2021 and intubation on 05/13/2021, progressive acute kidney injury, and development of Mobitz type 2 block requiring placement of temporary pacer on 05/13/2021. Temporary pacer taken out on 05/17/2021. No events overnight. Renal function and FiO2 requirements continue to fluctuate. Critical Care Time (minutes): 45 Physical Exam Vital Signs: Vital Signs: Last Vital Signs Temp 97.3 F 05/21/21 08:00 Pulse 79 05/21/21 08:00 Resp 22 H 05/21/21 08:00 BP 122/59 L 05/21/21 08:00 Pulse Ox 94 05/21/21 08:00 Oxygen Flow Rate 15 04/28/21 21:37 BMI result Body Mass Index 30.7 Const: General: no acute distress and other ( sedated on the vent) Eyes: Sclerae: sclerae normal EOM: EOMs intact bilaterally Neck: Neck: Yes no lymphadenopathy, Yes trachea midline and Yes supple Resp: Auscultation: crackles ( diffuse bilateral) Cardio: Rate: regular rate Rhythm: regular rhythm Heart sounds: no gallops, no murmurs and no rubs GI: Palpation (GI): Soft to palpation and Other GI palpation findings present ( Nontender) Auscultation: normal bowel sounds Extrem: General: No clubbing, No cyanosis and Yes pedal edema ( trace bilateral) Objective Data Labs CBC & Chem 7: 05/21/21 05:38 05/21/21 05:38 Labs: Laboratory Results - last 24 hr 05/20/21 05/20/21 05/20/21 11:46 17:42 23:19 WBC RBC Hgb Hct MCV MCH MCHC RDW Plt Count MPV Immature Gran % (Auto) Neut % (Auto) Lymph % (Auto) [place] % (Auto) Eos % (Auto) Baso % (Auto) Lymph # (Auto) [place] # (Auto) Eos # (Auto) Baso # (Auto) Abs Immat Gran (auto) Absolute Neuts (auto) Absolute Nucleated RBC Nucleated RBC % (auto) VBG pH VBG pCO2 VBG pO2 VBG HCO3 VBG O2 Saturation VBG Base Excess Sodium Potassium Chloride Carbon Dioxide Anion Gap BUN Creatinine Estim Creat Clear Calc Estimated GFR POC Glucose 166 H 227 H 244 H Random Glucose Calcium Phosphorus Magnesium Albumin 05/21/21 05/21/21 05/21/21 05:36 05:38 05:38 WBC 9.1 RBC 2.81 L Hgb 7.9 L Hct 25.9 L MCV 92.2 MCH 28.1 MCHC 30.5 L RDW 14.0 Plt Count 179 MPV 12.3 Immature Gran % (Auto) 2.1 H Neut % (Auto) 87.4 H Lymph % (Auto) 7.1 L [place] % (Auto) 3.2 Eos % (Auto) 0.1 Baso % (Auto) 0.1 Lymph # (Auto) 0.7 L [place] # (Auto) 0.3 Eos # (Auto) 0.0 Baso # (Auto) 0.0 Abs Immat Gran (auto) 0.19 H Absolute Neuts (auto) 8.0 Absolute Nucleated RBC 0.000 Nucleated RBC % (auto) 0.0 VBG pH VBG pCO2 VBG pO2 VBG HCO3 VBG O2 Saturation VBG Base Excess Sodium 142 Potassium 4.5 Chloride 103 Carbon Dioxide 27 Anion Gap 17 BUN 117 H Creatinine 2.42 H Estim Creat Clear Calc 36.4 Estimated GFR 27 POC Glucose 169 H Random Glucose 195 H Calcium 8.6 Phosphorus 5.8 H Magnesium 2.2 Albumin 3.4 L 05/21/21 05:38 WBC RBC Hgb Hct MCV MCH MCHC RDW Plt Count MPV Immature Gran % (Auto) Neut % (Auto) Lymph % (Auto) [place] % (Auto) Eos % (Auto) Baso % (Auto) Lymph # (Auto) [place] # (Auto) Eos # (Auto) Baso # (Auto) Abs Immat Gran (auto) Absolute Neuts (auto) Absolute Nucleated RBC Nucleated RBC % (auto) VBG pH 7.37 VBG pCO2 51 VBG pO2 59 VBG HCO3 30 H VBG O2 Saturation 87.0 VBG Base Excess 4.2 Sodium Potassium Chloride Carbon Dioxide Anion Gap BUN Creatinine Estim Creat Clear Calc Estimated GFR POC Glucose Random Glucose Calcium Phosphorus Magnesium Albumin Microbiology Microbiology Results: Microbiology 05/19/21 16:47 Blood - Venous Blood Culture - Preliminary No growth after 24 hours. 05/19/21 16:49 Blood - Venous Blood Culture - Preliminary No growth after 24 hours. 05/15/21 08:25 Blood - Venous Blood Culture - Final No growth after 5 days. 05/15/21 08:25 Blood - Venous Blood Culture - Final No growth after 5 days. 05/17/21 15:20 Sputum - Suctioned Gram Stain - Final 05/17/21 15:20 Sputum - Suctioned Sputum Culture - Final 05/13/21 Unknown Urine Catheterized - Camacho Catheter Urine Culture - Final Serratia marcescens 04/28/21 22:17 Blood - Venous Blood Culture - Final No growth after 5 days. 04/28/21 22:17 Blood - Venous Blood Culture - Final No growth after 5 days. Progress Note: A&P Assessment and plan (1) CHF (congestive heart failure): Status: Acute (2) Type 2 diabetes mellitus: Status: Acute (3) ARDS (adult respiratory distress syndrome): Status: Acute (4) Acute kidney injury superimposed on CKD: Status: Acute (5) Acute hypoxemic respiratory failure due to COVID-19: Status: Acute Assessment and Plan: Assessment: 66-year-old gentleman with underlying history of hypertension, CHF, diabetes mellitus admitted with acute hypoxic respiratory failure secondary to COVID-19 ARDS, requiring ventilatory support and further complicated by acute renal failure and chronotropic insufficiency Plan: Neuro: No acute issues. Cardiac: Mobitz type 2 status post temporary pacemaker, removed 01/27/2021, as patient has not required any pacing for 48 hours prior. Cardiology service care appreciated. Underlying congestive heart failure. Continue with judicious diuresis. Underlying AFib, Eliquis held secondary to minor GI bleed, now on aspirin. Pulmonary: Acute hypoxic respiratory failure secondary to COVID-19 ARDS now requiring ventilatory support. Continue to titrate off ventilatory support as tolerated. Renal: Acute renal failure on the background of chronic kidney disease, likely secondary to COVID-19. Renal function up and down. Nephrology service care appreciated. Continue to monitor electrolytes, renal indices, and urine output. May require dialysis. Endo: No acute issues. GI: No acute issues. ID: COVID-19, on systemic glucocorticoids. Heme/Onc: No acute issues. Psych: No acute issues. Miscellaneous: No acute issues. Prophylaxis: heparin , famotidine Diet: tube feeds Critical care time spent: 45 minutes Quality Stroke Does the patient have a stroke diagnosis?: No VTE Prior VTE?: No VTE Risk Level:: Medical - moderate - high VTE Device Contraindication: Treatment Not Indicated VTE Drug Contraindication: N/A - Med Ordered
[2021-05-21 11:24] LABS: Glucose, Whole Blood 143 mg/dL (60-115)
[2021-05-21] MEDS: methylPREDNISolone Sod Succ 40 MG/ML VIAL IVPUSH (11:26)
--- NOTE | 2021-05-21 11:39 | PM.PNNEP ---
Subjective Subjective Date of Service: 05/21/21 Principal diagnosis: COVID, JÚNIOR, CKD Interval history: Events noted Chart reviewed Physical Exam Vital Signs: Vital Signs: Last Vital Signs Temp 97.2 F 05/21/21 11:00 Pulse 79 05/21/21 11:33 Resp 21 H 05/21/21 11:33 BP 116/56 L 05/21/21 11:00 Pulse Ox 91 L 05/21/21 11:00 Oxygen Flow Rate 15 04/28/21 21:37 BMI result Body Mass Index 30.7 Neck: Neck: Yes supple Chest: Chest palpation & inspection: No rash Cardio: Palpation: no palpable S3 Neuro: Motor exam (neuro): No Asterixis during motor activity present Objective Data Labs CBC & Chem 7: 05/21/21 05:38 05/21/21 05:38 Labs: Laboratory Results - last 24 hr 05/20/21 05/20/21 05/20/21 11:46 17:42 23:19 WBC RBC Hgb Hct MCV MCH MCHC RDW Plt Count MPV Immature Gran % (Auto) Neut % (Auto) Lymph % (Auto) [place] % (Auto) Eos % (Auto) Baso % (Auto) Lymph # (Auto) [place] # (Auto) Eos # (Auto) Baso # (Auto) Abs Immat Gran (auto) Absolute Neuts (auto) Absolute Nucleated RBC Nucleated RBC % (auto) VBG pH VBG pCO2 VBG pO2 VBG HCO3 VBG O2 Saturation VBG Base Excess Sodium Potassium Chloride Carbon Dioxide Anion Gap BUN Creatinine Estim Creat Clear Calc Estimated GFR POC Glucose 166 H 227 H 244 H Random Glucose Calcium Phosphorus Magnesium Albumin 05/21/21 05/21/21 05/21/21 05:36 05:38 05:38 WBC 9.1 RBC 2.81 L Hgb 7.9 L Hct 25.9 L MCV 92.2 MCH 28.1 MCHC 30.5 L RDW 14.0 Plt Count 179 MPV 12.3 Immature Gran % (Auto) 2.1 H Neut % (Auto) 87.4 H Lymph % (Auto) 7.1 L [place] % (Auto) 3.2 Eos % (Auto) 0.1 Baso % (Auto) 0.1 Lymph # (Auto) 0.7 L [place] # (Auto) 0.3 Eos # (Auto) 0.0 Baso # (Auto) 0.0 Abs Immat Gran (auto) 0.19 H Absolute Neuts (auto) 8.0 Absolute Nucleated RBC 0.000 Nucleated RBC % (auto) 0.0 VBG pH VBG pCO2 VBG pO2 VBG HCO3 VBG O2 Saturation VBG Base Excess Sodium 142 Potassium 4.5 Chloride 103 Carbon Dioxide 27 Anion Gap 17 BUN 117 H Creatinine 2.42 H Estim Creat Clear Calc 36.4 Estimated GFR 27 POC Glucose 169 H Random Glucose 195 H Calcium 8.6 Phosphorus 5.8 H Magnesium 2.2 Albumin 3.4 L 05/21/21 05/21/21 05:38 11:21 WBC RBC Hgb Hct MCV MCH MCHC RDW Plt Count MPV Immature Gran % (Auto) Neut % (Auto) Lymph % (Auto) [place] % (Auto) Eos % (Auto) Baso % (Auto) Lymph # (Auto) [place] # (Auto) Eos # (Auto) Baso # (Auto) Abs Immat Gran (auto) Absolute Neuts (auto) Absolute Nucleated RBC Nucleated RBC % (auto) VBG pH 7.37 VBG pCO2 51 VBG pO2 59 VBG HCO3 30 H VBG O2 Saturation 87.0 VBG Base Excess 4.2 Sodium Potassium Chloride Carbon Dioxide Anion Gap BUN Creatinine Estim Creat Clear Calc Estimated GFR POC Glucose 143 H Random Glucose Calcium Phosphorus Magnesium Albumin Microbiology Microbiology Results: Microbiology 05/19/21 16:47 Blood - Venous Blood Culture - Preliminary No growth after 24 hours. 05/19/21 16:49 Blood - Venous Blood Culture - Preliminary No growth after 24 hours. 05/15/21 08:25 Blood - Venous Blood Culture - Final No growth after 5 days. 05/15/21 08:25 Blood - Venous Blood Culture - Final No growth after 5 days. 05/17/21 15:20 Sputum - Suctioned Gram Stain - Final 05/17/21 15:20 Sputum - Suctioned Sputum Culture - Final 05/13/21 Unknown Urine Catheterized - Camacho Catheter Urine Culture - Final Serratia marcescens 04/28/21 22:17 Blood - Venous Blood Culture - Final No growth after 5 days. 04/28/21 22:17 Blood - Venous Blood Culture - Final No growth after 5 days. Procedures Date of Service Date of Service: 05/21/21 Assessment & Plan Assessment and plan (1) JÚNIOR (acute kidney injury): Status: Inactive Assessment and Plan: (1) CKD (chronic kidney disease) stage 3, GFR 30-59 ml/min: ?Status:?Acute (2) SARS-CoV-2 positive: ?Status:?Acute ?Assessment and Plan: JÚNIOR due to compromised kidney perfusion in the setting of SARS COV 2 known CKD 3 due to DM/HTN followed by Dr Feldman Hypernatremia - due to free water deficit - corrected REC no indication for dialysis today sodium zirconium as needed to correct hyperkalemia Concur with current medical management follow kidney function and electrolytes Time Spent With Patient Time: Total time spent is greater than 50% in coordination of care (as documented) at patient's floor/unit and/or counseling patient: Time with patient: 15 - 24 minutes Progress Note: Quality Stroke Does the patient have a stroke diagnosis?: No
[2021-05-21] MEDS: 0.9 % Sodium Chloride Flush 3 ML SYRINGE IVFLUSH ×2 (15:03)
[2021-05-21] MEDS: propofoL 1,000 MG/100 ML VIAL 11.28 MG IVCONT (16:30)
[2021-05-21 19:04] LABS: Glucose, Whole Blood 243 mg/dL (60-115)
[2021-05-21] MEDS: Atorvastatin Calcium 20 MG TABLET PO (19:32)
[2021-05-21] MEDS: Insulin Glargine,Hum.rec.anlog 100 UNIT/ML 10 ML VIAL 24 UNIT SUBCUT (22:39)
[2021-05-21] MEDS: propofoL 1,000 MG/100 ML VIAL 16.92 MG IVCONT (22:39)
[2021-05-21 22:43] LABS: Glucose, Whole Blood 225 mg/dL (60-115)
[2021-05-22] VITALS (32 sets, daily range): BP systolic 91–130; BP diastolic 47–66; PULSE 70–96; RESP 18–32; TEMP 34.9–37.9; O2SAT 88–98; BMI 31.1
[2021-05-22] MEDS: Albuterol/Iprat 2.5/0.5MG 3 ML AMPUL.NEB INHALE ×2 (00:03→05:42)
[2021-05-22] MEDS: propofoL 1,000 MG/100 ML VIAL 16.92 MG IVCONT ×4 (03:33→19:55)
[2021-05-22] MEDS: Heparin Sodium,Porcine 5,000 UNIT/ML VIAL 5000 UNIT SUBCUT ×3 (03:33→18:09)
[2021-05-22] MEDS: Insulin Lispro 100 UNIT/ML 3 ML VIAL SUBCUT ×4 (05:25→23:45)
[2021-05-22 05:28] LABS: VBG HCO3 31 mmol/L (22-26); VBG pCO2 43 mmHg; VBG pH 7.46 (7.32-7.43); VBG pO2 68 mmHg
[2021-05-22 05:28] LABS: MANUAL DIFF FLAG NO
[2021-05-22 05:30] LABS: Basophils Percent Auto 0.2 % (0-2); Eosinophils Absolute Auto 0.1 X10*3/uL (0.0-0.4); Eosinophils Percent Auto 0.6 % (0-4); Hemoglobin 8.5 g/dl (14.0-18.0); Lymphocytes Absolute Auto 0.8 X10*3/uL (1.2-4.9); Lymphocytes Percent Auto 7.5 % (20-40); Mean Corpuscular HGB Conc 30.4 g/dl (31.0-36.0); Mean Corpuscular Hemoglobin 27.8 pg (27.0-33.0); Mean Corpuscular Volume 91.5 fL (80.0-98.0); Mean Platelet Volume 12.1 fL (9.4-12.4); Monocytes Absolute Auto 0.4 X10*3/uL (0.1-1.2); Monocytes Percent Auto 3.7 % (2-11); NRBC Pct Auto 0.4 /100WBC (0.0-0.2); Neutrophils Absolute Auto 8.7 x10*3/uL (2.0-8.3); Platelet Count 232 X10*3/uL (160-400); Red Blood Count 3.06 X10*6/uL (4.60-5.80); White Blood Count 10.1 X10*3/uL (4.8-10.8)
[2021-05-22 05:35] LABS: Venous Blood Gas Refer to POC result
[2021-05-22 05:44] LABS: Glucose, Whole Blood 156 mg/dL (60-115)
[2021-05-22 06:04] LABS: Albumin Level 3.3 g/dL (3.5-5.0); Anion Gap 16 (12-20); Blood Urea Nitrogen 116 mg/dL (9-16); Calcium 9.2 mg/dL (8.4-10.2); Carbon Dioxide 28 mmol/L (22-29); Chloride 102 mmol/L (96-108); Creatinine Clr Calc Pharmacy 41.1; Estimated Glomerular Filt Rate 30; Glucose Random 172 mg/dL (60-115); Phosphorus 3.3 mg/dL (2.7-4.5); Potassium 3.7 mmol/L (3.3-5.1); Sodium 142 mmol/L (135-145)
[2021-05-22] MEDS: Aspirin 81 MG TAB.CHEW PO (08:38)
[2021-05-22] MEDS: Chlorhexidine Gluc Oral Rinse 15 ML MOUTHWASH BUCCAL ×3 (08:38→21:04)
[2021-05-22] MEDS: Famotidine/PF 20 MG/2 ML VIAL IVPUSH (08:38)
[2021-05-22] MEDS: 0.9 % Sodium Chloride Flush 3 ML SYRINGE IVFLUSH ×2 (08:39→16:47)
[2021-05-22] MEDS: Nystatin Powder 15 GM BOTTLE 1 APPL TOPICAL ×3 (08:39→22:43)
--- NOTE | 2021-05-22 09:16 | MHC.CLN ---
F/U PT REMAINS INTUBATED AND SEDATED RECOMMEND INCREASING NEPRO TO MAX GOAL RATE 35ML/HR with 240CC FREE WATER Q 4 HRS TO PROVIDE 1512KCALS (1959KCALS WITH SEDATION; 23KCALS/KG), 68G PROTEIN (.78G/KG), 2051CC TOTAL WATER FROM FORMULA AND FLUSHES (23ML/KG) MONITOR TOLERANCE, RESIDUALS AND LYTES
--- NOTE | 2021-05-22 09:25 | P.PNCC_ITS ---
Subjective Subjective Date of Service: 05/22/21 Interval History: 66-year-old male unvaccinated with COVID-19 pneumonitis and ARDS in the hospital now on his 4th week intubated for close to 2 weeks and FiO2 finally slightly diminished to 75% with comparable minute ventilatory requirements and low tidal volume probably less than 6 cc/kilos at tidal volume therapy and not febrile and actually with a chest x-ray appearing to be somewhat clearer than previously but sputum surveillance growing Gram-positive cocci with significant polys and there is a pending and MRSA screen but until then 1 dose of vancomycin and 1 dose of caspofungin were administered prophylactically to prevent nosocomial infection today he had high GI residuals so for the 1st time not quite tolerating the feedings so at this point with significant increase in pre renal azotemia from diuretic some stopping the diuretics and cutting back on his overall water volume via his GI tract see of everything falls in to better balance but continue feedings if we can vital signs are stable and all of the lab work appeared to be stable and exam shows preserved cardiac function and patient does awaken and currently appears to be a [place] 3 level of sedation Critical Care Time (minutes): 45 Physical Exam Vital Signs: Vital Signs: Last Vital Signs Temp 100.0 F 05/22/21 09:00 Pulse 90 05/22/21 09:00 Resp 30 H 05/22/21 09:00 BP 109/58 L 05/22/21 09:00 Pulse Ox 94 05/22/21 09:00 Oxygen Flow Rate 15 04/28/21 21:37 BMI result Body Mass Index 31.1 sedated and intubated and synchronous with the ventilator and does move all 4 extremities stable cardiovascular abdomen benign no tenderness no organom egaly lungs with coarse bilateral ventilatory sounds skin is intact Objective Data Labs CBC & Chem 7: 05/22/21 05:20 05/22/21 05:20 Labs: Laboratory Results - last 24 hr 05/21/21 05/21/21 05/21/21 11:21 17:41 22:39 WBC RBC Hgb Hct MCV MCH MCHC RDW Plt Count MPV Immature Gran % (Auto) Neut % (Auto) Lymph % (Auto) [place] % (Auto) Eos % (Auto) Baso % (Auto) Lymph # (Auto) [place] # (Auto) Eos # (Auto) Baso # (Auto) Abs Immat Gran (auto) Absolute Neuts (auto) Absolute Nucleated RBC Nucleated RBC % (auto) VBG pH VBG pCO2 VBG pO2 VBG HCO3 VBG O2 Saturation VBG Base Excess Sodium Potassium Chloride Carbon Dioxide Anion Gap BUN Creatinine Estim Creat Clear Calc Estimated GFR POC Glucose 143 H 243 H 225 H Random Glucose Calcium Phosphorus Magnesium Albumin 05/22/21 05/22/21 05/22/21 05:20 05:20 05:22 WBC 10.1 RBC 3.06 L Hgb 8.5 L Hct 28.0 L MCV 91.5 MCH 27.8 MCHC 30.4 L RDW 14.0 Plt Count 232 D MPV 12.1 Immature Gran % (Auto) 2.0 H Neut % (Auto) 86.0 H Lymph % (Auto) 7.5 L [place] % (Auto) 3.7 Eos % (Auto) 0.6 Baso % (Auto) 0.2 Lymph # (Auto) 0.8 L [place] # (Auto) 0.4 Eos # (Auto) 0.1 Baso # (Auto) 0.0 Abs Immat Gran (auto) 0.20 H Absolute Neuts (auto) 8.7 H Absolute Nucleated RBC 0.040 H Nucleated RBC % (auto) 0.4 H VBG pH 7.46 H VBG pCO2 43 VBG pO2 68 VBG HCO3 31 H VBG O2 Saturation 93.0 VBG Base Excess TNP Sodium 142 Potassium 3.7 Chloride 102 Carbon Dioxide 28 Anion Gap 16 BUN 116 H Creatinine 2.19 H Estim Creat Clear Calc 41.1 Estimated GFR 30 POC Glucose Random Glucose 172 H Calcium 9.2 D Phosphorus 3.3 Magnesium 2.0 Albumin 3.3 L 05/22/21 05:22 WBC RBC Hgb Hct MCV MCH MCHC RDW Plt Count MPV Immature Gran % (Auto) Neut % (Auto) Lymph % (Auto) [place] % (Auto) Eos % (Auto) Baso % (Auto) Lymph # (Auto) [place] # (Auto) Eos # (Auto) Baso # (Auto) Abs Immat Gran (auto) Absolute Neuts (auto) Absolute Nucleated RBC Nucleated RBC % (auto) VBG pH VBG pCO2 VBG pO2 VBG HCO3 VBG O2 Saturation VBG Base Excess Sodium Potassium Chloride Carbon Dioxide Anion Gap BUN Creatinine Estim Creat Clear Calc Estimated GFR POC Glucose 156 H Random Glucose Calcium Phosphorus Magnesium Albumin Microbiology Microbiology Results: Microbiology 05/19/21 16:47 Blood - Venous Blood Culture - Preliminary No growth after 48 hours. 05/19/21 16:49 Blood - Venous Blood Culture - Preliminary No growth after 48 hours. 05/15/21 08:25 Blood - Venous Blood Culture - Final No growth after 5 days. 05/15/21 08:25 Blood - Venous Blood Culture - Final No growth after 5 days. 05/17/21 15:20 Sputum - Suctioned Gram Stain - Final 05/17/21 15:20 Sputum - Suctioned Sputum Culture - Final 05/13/21 Unknown Urine Catheterized - Camacho Catheter Urine Culture - Final Serratia marcescens 04/28/21 22:17 Blood - Venous Blood Culture - Final No growth after 5 days. 04/28/21 22:17 Blood - Venous Blood Culture - Final No growth after 5 days. Progress Note: A&P Assessment and plan (1) Diabetes: Status: Acute (2) AV block: Status: Acute (3) CHF (congestive heart failure): Status: Acute (4) Type 2 diabetes mellitus: Status: Acute (5) JÚNIOR (acute kidney injury): Status: Acute (6) SARS-CoV-2 positive: Status: Acute (7) ARDS (adult respiratory distress syndrome): Status: Acute (8) CKD (chronic kidney disease) stage 3, GFR 30-59 ml/min: Status: Acute (9) COVID-19 determined by clinical diagnostic criteria: Status: Acute (10) Mobitz (type) I (Wenckebach's) atrioventricular block: Status: Acute (11) Elevated troponin: Status: Acute (12) Acute kidney injury superimposed on CKD: Status: Acute Assessment and Plan: so the plan is to stop the Lasix drip and to decrease the the GI burden and terms of volume and in this case because of underlying diabetes and possible associated gastropathy we might consider is something like [place] if his QT interval per minutes and given the the growth of Staph from the sputum we will check for an MRSA surveillance and cover with 1 dose of vancomycin today 1 dose of caspofungin and just continue to follow and if we can continue to wean the FiO2 and once down to 60% I would like to switch him over to a pressure control mode and start to exercise him Quality Stroke Does the patient have a stroke diagnosis?: No VTE Prior VTE?: No VTE Risk Level:: Medical - moderate - high VTE Device Contraindication: Treatment Not Indicated VTE Drug Contraindication: N/A - Med Ordered
--- NOTE | 2021-05-22 09:32 | PHA.PROG ---
Admission Date/Time: April 29, 2021 05:57 Indication: RESP INFECTION Weight in k.3 kg Adjusted body weight in K.28 KG [place] body weight in K.6 KG Obesity Dosing Indication % IBW: Serum Creatinine - Last 168 Hours 05/15/21 05/15/21 05/16/21 12:26 17:59 05:32 Creatinine 2.06 H 2.07 H 1.74 H 05/16/21 05/17/21 05/17/21 18:25 05:35 20:06 Creatinine 1.91 H 2.06 H 2.26 H 05/18/21 05/18/21 05/19/21 05:25 18:08 05:25 Creatinine 2.22 H 2.25 H 1.99 H 05/20/21 05/21/21 05/22/21 05:22 05:38 05:20 Creatinine 2.48 H 2.42 H 2.19 H Estimated CrCl and GFR - Last 168 Hours 05/15/21 05/15/21 05/16/21 12:26 17:59 05:32 Estim Creat Clear Calc 42.8 42.6 50.4 Estimated GFR 32 32 39 05/16/21 05/17/21 05/17/21 18:25 05:35 20:06 Estim Creat Clear Calc 45.9 42.4 38.7 Estimated GFR 35 32 29 05/18/21 05/18/21 05/19/21 05:25 18:08 05:25 Estim Creat Clear Calc 39.7 39.1 44.5 Estimated GFR 30 29 34 05/20/21 05/21/21 05/22/21 05:22 05:38 05:20 Estim Creat Clear Calc 35.7 36.4 41.1 Estimated GFR 26 27 30 Vancomycin Loading Dose: 1000 MG Current Vancomycin Dosing Regimen: 1000 MG Q24H Vancomycin Monitoring using AUC goal of 400 - 600 range with trough as surrogate marker: A REGIMEN OF 1000 MG Q24H ESTIMATES A AUC OF 540 WITH A TROUGH OF 17.7, WILL CONTINUE TO MONITOR THE RENAL FUNCTION. Date and Time for next Vancomycin Level to be drawn: RANDOM TROUGH AT 0730 ON 05/24. Vancomycin Trough 16.7 mcg/mL (10.0-20.0) 05/17/21 10:12 Pharmacist Comments on Vancomycin Plan: Vancomycin dosing will take advantage of [employer] as a clinical decision support tool that uses Bayesian modeling to calculate individual patient's pharmacokinetic parameters and forecast the patient's drug concentration time course with the target goal AUC 24 range of 400 - 600 mg/L/hr.
[2021-05-22] MEDS: predniSONE 5 MG TABLET 35 MG PO (09:51)
[2021-05-22] MEDS: vancomycin HCL 1,000 MG in 0.9 % Sodium Chloride 250 ML 270 MG IV (09:53)
[2021-05-22] MEDS: Midazolam HCl/PF 2 MG/2 ML VIAL IVPUSH (11:04)
--- NOTE | 2021-05-22 11:22 | P.PNNP_ITS ---
Subjective Subjective Date of Service: 05/22/21 Principal diagnosis: COVID, JÚNIOR, CKD Interval history: Events noted. All recent data reviewed Physical Exam Vital Signs: Vital Signs: Last Vital Signs Temp 100.0 F 05/22/21 11:00 Pulse 90 05/22/21 11:00 Resp 32 H 05/22/21 11:00 BP 130/59 L 05/22/21 11:00 Pulse Ox 92 05/22/21 11:00 Oxygen Flow Rate 15 04/28/21 21:37 BMI result Body Mass Index 31.1 Const: General: no acute distress Neck: Neck: Yes supple Resp: Auscultation: diminished lung sounds Cardio: Rate: regular rate GI: Palpation (GI): Soft to palpation Neuro: Other: Sedated Objective Data Labs CBC & Chem 7: 05/22/21 05:20 05/22/21 05:20 Labs: Laboratory Results - last 24 hr 05/21/21 05/21/21 05/21/21 11:21 17:41 22:39 WBC RBC Hgb Hct MCV MCH MCHC RDW Plt Count MPV Immature Gran % (Auto) Neut % (Auto) Lymph % (Auto) [place] % (Auto) Eos % (Auto) Baso % (Auto) Lymph # (Auto) [place] # (Auto) Eos # (Auto) Baso # (Auto) Abs Immat Gran (auto) Absolute Neuts (auto) Absolute Nucleated RBC Nucleated RBC % (auto) VBG pH VBG pCO2 VBG pO2 VBG HCO3 VBG O2 Saturation VBG Base Excess Sodium Potassium Chloride Carbon Dioxide Anion Gap BUN Creatinine Estim Creat Clear Calc Estimated GFR POC Glucose 143 H 243 H 225 H Random Glucose Calcium Phosphorus Magnesium Albumin 05/22/21 05/22/21 05/22/21 05:20 05:20 05:22 WBC 10.1 RBC 3.06 L Hgb 8.5 L Hct 28.0 L MCV 91.5 MCH 27.8 MCHC 30.4 L RDW 14.0 Plt Count 232 D MPV 12.1 Immature Gran % (Auto) 2.0 H Neut % (Auto) 86.0 H Lymph % (Auto) 7.5 L [place] % (Auto) 3.7 Eos % (Auto) 0.6 Baso % (Auto) 0.2 Lymph # (Auto) 0.8 L [place] # (Auto) 0.4 Eos # (Auto) 0.1 Baso # (Auto) 0.0 Abs Immat Gran (auto) 0.20 H Absolute Neuts (auto) 8.7 H Absolute Nucleated RBC 0.040 H Nucleated RBC % (auto) 0.4 H VBG pH 7.46 H VBG pCO2 43 VBG pO2 68 VBG HCO3 31 H VBG O2 Saturation 93.0 VBG Base Excess TNP Sodium 142 Potassium 3.7 Chloride 102 Carbon Dioxide 28 Anion Gap 16 BUN 116 H Creatinine 2.19 H Estim Creat Clear Calc 41.1 Estimated GFR 30 POC Glucose Random Glucose 172 H Calcium 9.2 D Phosphorus 3.3 Magnesium 2.0 Albumin 3.3 L 05/22/21 05:22 WBC RBC Hgb Hct MCV MCH MCHC RDW Plt Count MPV Immature Gran % (Auto) Neut % (Auto) Lymph % (Auto) [place] % (Auto) Eos % (Auto) Baso % (Auto) Lymph # (Auto) [place] # (Auto) Eos # (Auto) Baso # (Auto) Abs Immat Gran (auto) Absolute Neuts (auto) Absolute Nucleated RBC Nucleated RBC % (auto) VBG pH VBG pCO2 VBG pO2 VBG HCO3 VBG O2 Saturation VBG Base Excess Sodium Potassium Chloride Carbon Dioxide Anion Gap BUN Creatinine Estim Creat Clear Calc Estimated GFR POC Glucose 156 H Random Glucose Calcium Phosphorus Magnesium Albumin Microbiology Microbiology Results: Microbiology 05/19/21 16:47 Blood - Venous Blood Culture - Preliminary No growth after 48 hours. 05/19/21 16:49 Blood - Venous Blood Culture - Preliminary No growth after 48 hours. 05/15/21 08:25 Blood - Venous Blood Culture - Final No growth after 5 days. 05/15/21 08:25 Blood - Venous Blood Culture - Final No growth after 5 days. 05/17/21 15:20 Sputum - Suctioned Gram Stain - Final 05/17/21 15:20 Sputum - Suctioned Sputum Culture - Final 05/13/21 Unknown Urine Catheterized - Camacho Catheter Urine Culture - Final Serratia marcescens 04/28/21 22:17 Blood - Venous Blood Culture - Final No growth after 5 days. 04/28/21 22:17 Blood - Venous Blood Culture - Final No growth after 5 days. Procedures Date of Service Date of Service: 05/22/21 Assessment & Plan Assessment and plan (1) Acute kidney injury superimposed on CKD: Status: Acute Assessment and Plan: JÚNIOR due to compromised kidney perfusion in the setting of SARS COV 2 known CKD 3 due to DM/HTN Renal functions relatively stable no indication for dialysis today sodium zirconium as needed to correct hyperkalemia Concur with current medical management Labs AM. Shall closely F/U Time Spent With Patient Time: Total time spent is greater than 50% in coordination of care (as documented) at patient's floor/unit and/or counseling patient: Progress Note: Quality Stroke Does the patient have a stroke diagnosis?: No
[2021-05-22 16:14] LABS: MRSA Nasal PCR POSITIVE (Negative); SA Nasal PCR POSITIVE (Negative)
[2021-05-22 18:09] LABS: Glucose, Whole Blood 291 mg/dL (60-115)
[2021-05-22 18:09] LABS: Glucose, Whole Blood 142 mg/dL (60-115)
[2021-05-22] MEDS: Insulin Glargine,Hum.rec.anlog 100 UNIT/ML 10 ML VIAL 24 UNIT SUBCUT (21:04)
[2021-05-22] MEDS: Atorvastatin Calcium 20 MG TABLET PO (21:04)
[2021-05-22 23:37] LABS: Glucose, Whole Blood 267 mg/dL (60-115)
[2021-05-23] VITALS (31 sets, daily range): BP systolic 102–136; BP diastolic 51–75; PULSE 66–91; RESP 18–28; TEMP 35–37.9; O2SAT 74–95; BMI 30.9
[2021-05-23] MEDS: propofoL 1,000 MG/100 ML VIAL 16.92 MG IVCONT ×5 (00:31→21:31)
[2021-05-23] MEDS: Heparin Sodium,Porcine 5,000 UNIT/ML VIAL 5000 UNIT SUBCUT ×3 (03:57→19:38)
[2021-05-23 05:35] LABS: VBG HCO3 32 mmol/L (22-26); VBG pCO2 52 mmHg; VBG pO2 59 mmHg
[2021-05-23 05:37] LABS: Venous Blood Gas Refer to POC result
[2021-05-23] MEDS: Insulin Lispro 100 UNIT/ML 3 ML VIAL SUBCUT ×3 (05:43→17:23)
[2021-05-23 05:44] LABS: MANUAL DIFF FLAG NO
[2021-05-23 05:48] LABS: Glucose, Whole Blood 209 mg/dL (60-115)
[2021-05-23 05:51] LABS: Basophils Percent Auto 0.1 % (0-2); Eosinophils Absolute Auto 0.1 X10*3/uL (0.0-0.4); Eosinophils Percent Auto 0.7 % (0-4); Hematocrit 27.3 % (42.0-52.0); Hemoglobin 8.4 g/dl (14.0-18.0); Imm Gran Abs Auto 0.37 X10*3/uL (0.00-0.03); Imm Gran Pct Auto 4.4 % (0.0-0.4); Lymphocytes Absolute Auto 0.9 X10*3/uL (1.2-4.9); Lymphocytes Percent Auto 10.2 % (20-40); Mean Corpuscular HGB Conc 30.8 g/dl (31.0-36.0); Mean Platelet Volume 12.3 fL (9.4-12.4); Monocytes Absolute Auto 0.4 X10*3/uL (0.1-1.2); Monocytes Percent Auto 4.7 % (2-11); NRBC Pct Auto 0.6 /100WBC (0.0-0.2); Neutrophils Absolute Auto 6.7 x10*3/uL (2.0-8.3); Neutrophils Percent Auto 79.9 % (45-73); Platelet Count 250 X10*3/uL (160-400); Red Cell Distribution Width 14.1 % (11.0-16.0); White Blood Count 8.4 X10*3/uL (4.8-10.8)
[2021-05-23] MEDS: Rocuronium Bromide 50 MG/5 ML VIAL IVPUSH (06:18)
[2021-05-23 06:26] LABS: Alanine Aminotransferase 62 U/L (0-40); Albumin Level 3.1 g/dL (3.5-5.0); Alkaline Phosphatase 52 U/L (39-117); Anion Gap 16 (12-20); Aspartate Amino Transferase 23 U/L (5-37); Bilirubin Total 0.7 mg/dL (0.0-1.0); Calcium 9.4 mg/dL (8.4-10.2); Carbon Dioxide 28 mmol/L (22-29); Chloride 104 mmol/L (96-108); Creatinine Clr Calc Pharmacy 43.4; Estimated Glomerular Filt Rate 32; Glucose Random 235 mg/dL (60-115); Potassium 3.8 mmol/L (3.3-5.1); Sodium 144 mmol/L (135-145); Total Protein 5.8 g/dL (6.5-8.0)
[2021-05-23 06:36] LABS: Blood Urea Nitrogen 132 mg/dL (9-16)
--- NOTE | 2021-05-23 07:17 | P.PNCC_ITS ---
Subjective Subjective Date of Service: 05/23/21 Interval History: 66-year-old male with COVID-19 pneumonitis and ARDS intubated now for about 11 days and sputum grows Gram-positive cocci with the polys but if anything chest x-ray looks somewhat improved but his MRSA nasal screen was posit robert so I am going to prophylax with linezolid and I might switch to a pressure control mode to allow him to do some exercise in seek his volume and see if allows us to wean his FiO2 a little bit faster Critical Care Time (minutes): 45 Physical Exam Vital Signs: Vital Signs: Last Vital Signs Temp 98.7 F 05/23/21 06:00 Pulse 89 05/23/21 06:00 Resp 28 H 05/23/21 06:00 BP 110/61 05/23/21 06:00 Pulse Ox 90 L 05/23/21 06:00 Oxygen Flow Rate 15 04/28/21 21:37 BMI result Body Mass Index 30.9 he responds through the propofol FiO2 is 65% with saturations of 91 he remains in a sinus mechanism with significant 1st degree AV block and sometimes episodes of [place] 1 second-degree block as well but a comfortable rate pressure is 118/59 urine output is adequate and BUN and creatinine slightly improving now that he is off the Lasix drip Objective Data Labs CBC & Chem 7: 05/23/21 05:18 05/23/21 05:18 Labs: Laboratory Results - last 24 hr 05/22/21 05/22/21 05/22/21 05:22 11:07 13:40 WBC RBC Hgb Hct MCV MCH MCHC RDW Plt Count MPV Immature Gran % (Auto) Neut % (Auto) Lymph % (Auto) [place] % (Auto) Eos % (Auto) Baso % (Auto) Lymph # (Auto) [place] # (Auto) Eos # (Auto) Baso # (Auto) Abs Immat Gran (auto) Absolute Neuts (auto) Absolute Nucleated RBC Nucleated RBC % (auto) VBG pH VBG pCO2 VBG pO2 VBG HCO3 VBG O2 Saturation VBG Base Excess TNP Sodium Potassium Chloride Carbon Dioxide Anion Gap BUN Creatinine Estim Creat Clear Calc Estimated GFR POC Glucose 142 H Random Glucose Calcium Total Bilirubin AST ALT Alkaline Phosphatase Total Protein Albumin Nasal Screen MRSA (PCR) POSITIVE A Nasal S. aureus Screen POSITIVE A Nasal MRSA/S.aureus Interp SEE NOTE 05/22/21 05/22/21 05/23/21 18:05 23:32 05:18 WBC 8.4 RBC 3.00 L Hgb 8.4 L Hct 27.3 L MCV 91.0 MCH 28.0 MCHC 30.8 L RDW 14.1 Plt Count 250 MPV 12.3 Immature Gran % (Auto) 4.4 H Neut % (Auto) 79.9 H Lymph % (Auto) 10.2 L [place] % (Auto) 4.7 Eos % (Auto) 0.7 Baso % (Auto) 0.1 Lymph # (Auto) 0.9 L [place] # (Auto) 0.4 Eos # (Auto) 0.1 Baso # (Auto) 0.0 Abs Immat Gran (auto) 0.37 H Absolute Neuts (auto) 6.7 Absolute Nucleated RBC 0.050 H Nucleated RBC % (auto) 0.6 H VBG pH VBG pCO2 VBG pO2 VBG HCO3 VBG O2 Saturation VBG Base Excess Sodium Potassium Chloride Carbon Dioxide Anion Gap BUN Creatinine Estim Creat Clear Calc Estimated GFR POC Glucose 291 H 267 H Random Glucose Calcium Total Bilirubin AST ALT Alkaline Phosphatase Total Protein Albumin Nasal Screen MRSA (PCR) Nasal S. aureus Screen Nasal MRSA/S.aureus Interp 05/23/21 05/23/21 05/23/21 05:18 05:29 05:41 WBC RBC Hgb Hct MCV MCH MCHC RDW Plt Count MPV Immature Gran % (Auto) Neut % (Auto) Lymph % (Auto) [place] % (Auto) Eos % (Auto) Baso % (Auto) Lymph # (Auto) [place] # (Auto) Eos # (Auto) Baso # (Auto) Abs Immat Gran (auto) Absolute Neuts (auto) Absolute Nucleated RBC Nucleated RBC % (auto) VBG pH 7.40 VBG pCO2 52 VBG pO2 59 VBG HCO3 32 H VBG O2 Saturation 87.0 VBG Base Excess 7.0 Sodium 144 Potassium 3.8 Chloride 104 Carbon Dioxide 28 Anion Gap 16 BUN 132 H Creatinine 2.09 H Estim Creat Clear Calc 43.4 Estimated GFR 32 POC Glucose 209 H Random Glucose 235 H D Calcium 9.4 Total Bilirubin 0.7 AST 23 ALT 62 H Alkaline Phosphatase 52 Total Protein 5.8 L Albumin 3.1 L Nasal Screen MRSA (PCR) Nasal S. aureus Screen Nasal MRSA/S.aureus Interp Microbiology Microbiology Results: Microbiology 05/19/21 16:47 Blood - Venous Blood Culture - Preliminary No growth after 48 hours. 05/19/21 16:49 Blood - Venous Blood Culture - Preliminary No growth after 48 hours. 05/15/21 08:25 Blood - Venous Blood Culture - Final No growth after 5 days. 05/15/21 08:25 Blood - Venous Blood Culture - Final No growth after 5 days. 05/17/21 15:20 Sputum - Suctioned Gram Stain - Final 05/17/21 15:20 Sputum - Suctioned Sputum Culture - Final 05/13/21 Unknown Urine Catheterized - Camacho Catheter Urine Culture - Final Serratia marcescens 04/28/21 22:17 Blood - Venous Blood Culture - Final No growth after 5 days. 04/28/21 22:17 Blood - Venous Blood Culture - Final No growth after 5 days. Progress Note: A&P Assessment and plan (1) Diabetes: Status: Acute (2) CHF (congestive heart failure): Status: Acute (3) Type 2 diabetes mellitus: Status: Acute (4) JÚNIOR (acute kidney injury): Status: Acute (5) SARS-CoV-2 positive: Status: Acute (6) ARDS (adult respiratory distress syndrome): Status: Acute (7) CKD (chronic kidney disease) stage 3, GFR 30-59 ml/min: Status: Acute (8) Mobitz (type) I (Wenckebach's) atrioventricular block: Status: Acute (9) Elevated troponin: Status: Acute (10) Acute kidney injury superimposed on CKD: Status: Acute (11) Elevated troponin: Status: Acute (12) Acute hypoxemic respiratory failure due to COVID-19: Status: Acute (13) Leg swelling: Status: Acute Assessment and Plan: to my plan is to continue with his oral feedings and used as a source of gentle rehydration and switch to pressure control let him see his volume and continue to attempt weaning FiO2 as 0 out and cover with linezolid for sputum that is co nsistent for Gram-positive cocci and polys in the face of a positive MRSA nasal screen Quality Stroke Does the patient have a stroke diagnosis?: No VTE Prior VTE?: No VTE Risk Level:: Medical - moderate - high VTE Device Contraindication: Treatment Not Indicated VTE Drug Contraindication: N/A - Med Ordered
[2021-05-23] MEDS: Aspirin 81 MG TAB.CHEW PO (08:30)
[2021-05-23] MEDS: Nystatin Powder 15 GM BOTTLE 1 APPL TOPICAL ×3 (08:30→21:23)
[2021-05-23] MEDS: Chlorhexidine Gluc Oral Rinse 15 ML MOUTHWASH BUCCAL ×3 (08:30→21:22)
[2021-05-23] MEDS: Famotidine/PF 20 MG/2 ML VIAL IVPUSH (08:30)
[2021-05-23] MEDS: 0.9 % Sodium Chloride Flush 3 ML SYRINGE IVFLUSH ×2 (08:31→15:57)
[2021-05-23] MEDS: predniSONE 5 MG TABLET 35 MG PO (08:36)
[2021-05-23] MEDS: vancomycin HCL 1,000 MG in 0.9 % Sodium Chloride 250 ML 270 MG IV (08:42)
[2021-05-23 11:35] LABS: Glucose, Whole Blood 187 mg/dL (60-115)
--- NOTE | 2021-05-23 12:51 | PM.PNNEP ---
Subjective Subjective Date of Service: 05/23/21 Principal diagnosis: COVID, JÚNIOR, CKD Interval history: Events noted. All recent data reviewed Physical Exam Vital Signs: Vital Signs: Last Vital Signs Temp 99.3 F 05/23/21 12:00 Pulse 89 05/23/21 12:00 Resp 25 H 05/23/21 12:00 BP 118/59 L 05/23/21 12:00 Pulse Ox 93 05/23/21 12:00 Oxygen Flow Rate 15 04/28/21 21:37 BMI result Body Mass Index 30.9 Const: Other: Intubated Resp: Auscultation: diminished lung sounds Cardio: Rate: regular rate GI: Palpation (GI): Soft to palpation Neuro: Other: Sedated Objective Data Labs CBC & Chem 7: 05/23/21 05:18 05/23/21 05:18 Labs: Laboratory Results - last 24 hr 05/22/21 05/22/21 05/22/21 11:07 11:32 13:40 WBC RBC Hgb Hct MCV MCH MCHC RDW Plt Count MPV Immature Gran % (Auto) Neut % (Auto) Lymph % (Auto) [place] % (Auto) Eos % (Auto) Baso % (Auto) Lymph # (Auto) [place] # (Auto) Eos # (Auto) Baso # (Auto) Abs Immat Gran (auto) Absolute Neuts (auto) Absolute Nucleated RBC Nucleated RBC % (auto) VBG pH VBG pCO2 VBG pO2 VBG HCO3 VBG O2 Saturation VBG Base Excess Sodium Potassium Chloride Carbon Dioxide Anion Gap BUN Creatinine Estim Creat Clear Calc Estimated GFR POC Glucose 142 H Random Glucose Calcium Total Bilirubin AST ALT Alkaline Phosphatase Total Protein Albumin Nasal Screen MRSA (PCR) SEE COMMENT POSITIVE A Nasal S. aureus Screen TNP POSITIVE A Nasal MRSA/S.aureus Interp TNP SEE NOTE 05/22/21 05/22/21 05/23/21 18:05 23:32 05:18 WBC 8.4 RBC 3.00 L Hgb 8.4 L Hct 27.3 L MCV 91.0 MCH 28.0 MCHC 30.8 L RDW 14.1 Plt Count 250 MPV 12.3 Immature Gran % (Auto) 4.4 H Neut % (Auto) 79.9 H Lymph % (Auto) 10.2 L [place] % (Auto) 4.7 Eos % (Auto) 0.7 Baso % (Auto) 0.1 Lymph # (Auto) 0.9 L [place] # (Auto) 0.4 Eos # (Auto) 0.1 Baso # (Auto) 0.0 Abs Immat Gran (auto) 0.37 H Absolute Neuts (auto) 6.7 Absolute Nucleated RBC 0.050 H Nucleated RBC % (auto) 0.6 H VBG pH VBG pCO2 VBG pO2 VBG HCO3 VBG O2 Saturation VBG Base Excess Sodium Potassium Chloride Carbon Dioxide Anion Gap BUN Creatinine Estim Creat Clear Calc Estimated GFR POC Glucose 291 H 267 H Random Glucose Calcium Total Bilirubin AST ALT Alkaline Phosphatase Total Protein Albumin Nasal Screen MRSA (PCR) Nasal S. aureus Screen Nasal MRSA/S.aureus Interp 05/23/21 05/23/21 05/23/21 05:18 05:29 05:41 WBC RBC Hgb Hct MCV MCH MCHC RDW Plt Count MPV Immature Gran % (Auto) Neut % (Auto) Lymph % (Auto) [place] % (Auto) Eos % (Auto) Baso % (Auto) Lymph # (Auto) [place] # (Auto) Eos # (Auto) Baso # (Auto) Abs Immat Gran (auto) Absolute Neuts (auto) Absolute Nucleated RBC Nucleated RBC % (auto) VBG pH 7.40 VBG pCO2 52 VBG pO2 59 VBG HCO3 32 H VBG O2 Saturation 87.0 VBG Base Excess 7.0 Sodium 144 Potassium 3.8 Chloride 104 Carbon Dioxide 28 Anion Gap 16 BUN 132 H Creatinine 2.09 H Estim Creat Clear Calc 43.4 Estimated GFR 32 POC Glucose 209 H Random Glucose 235 H D Calcium 9.4 Total Bilirubin 0.7 AST 23 ALT 62 H Alkaline Phosphatase 52 Total Protein 5.8 L Albumin 3.1 L Nasal Screen MRSA (PCR) Nasal S. aureus Screen Nasal MRSA/S.aureus Interp 05/23/21 11:32 WBC RBC Hgb Hct MCV MCH MCHC RDW Plt Count MPV Immature Gran % (Auto) Neut % (Auto) Lymph % (Auto) [place] % (Auto) Eos % (Auto) Baso % (Auto) Lymph # (Auto) [place] # (Auto) Eos # (Auto) Baso # (Auto) Abs Immat Gran (auto) Absolute Neuts (auto) Absolute Nucleated RBC Nucleated RBC % (auto) VBG pH VBG pCO2 VBG pO2 VBG HCO3 VBG O2 Saturation VBG Base Excess Sodium Potassium Chloride Carbon Dioxide Anion Gap BUN Creatinine Estim Creat Clear Calc Estimated GFR POC Glucose 187 H Random Glucose Calcium Total Bilirubin AST ALT Alkaline Phosphatase Total Protein Albumin Nasal Screen MRSA (PCR) Nasal S. aureus Screen Nasal MRSA/S.aureus Interp Microbiology Microbiology Results: Microbiology 05/22/21 15:44 Sputum - Suctioned Gram Stain - Final 05/22/21 15:44 Sputum - Suctioned Sputum Culture - Preliminary Culture in progress. 05/19/21 16:47 Blood - Venous Blood Culture - Preliminary No growth after 48 hours. 05/19/21 16:49 Blood - Venous Blood Culture - Preliminary No growth after 48 hours. 05/15/21 08:25 Blood - Venous Blood Culture - Final No growth after 5 days. 05/15/21 08:25 Blood - Venous Blood Culture - Final No growth after 5 days. 05/17/21 15:20 Sputum - Suctioned Gram Stain - Final 05/17/21 15:20 Sputum - Suctioned Sputum Culture - Final 05/13/21 Unknown Urine Catheterized - Camacho Catheter Urine Culture - Final Serratia marcescens 04/28/21 22:17 Blood - Venous Blood Culture - Final No growth after 5 days. 04/28/21 22:17 Blood - Venous Blood Culture - Final No growth after 5 days. Procedures Date of Service Date of Service: 05/23/21 Assessment & Plan Assessment and plan (1) JÚNIOR (acute kidney injury): Status: Acute Assessment and Plan: JÚNIOR due to compromised kidney perfusion in the setting of SARS COV 2 known CKD 3 due to DM/HTN no indication for dialysis today sodium zirconium as needed to correct hyperkalemia Concur with current medical management Labs AM. Shall closely F/U Time Spent With Patient Time: Total time spent is greater than 50% in coordination of care (as documented) at patient's floor/unit and/or counseling patient: Progress Note: Quality Stroke Does the patient have a stroke diagnosis?: No
[2021-05-23 17:56] LABS: Glucose, Whole Blood 278 mg/dL (60-115)
[2021-05-23] MEDS: Insulin Glargine,Hum.rec.anlog 100 UNIT/ML 10 ML VIAL 24 UNIT SUBCUT (21:22)
[2021-05-23] MEDS: Atorvastatin Calcium 20 MG TABLET PO (21:22)
[2021-05-23 23:09] LABS: Glucose, Whole Blood 230 mg/dL (60-115)
[2021-05-24] VITALS (29 sets, daily range): BP systolic 100–134; BP diastolic 45–64; PULSE 60–90; RESP 18–30; TEMP 33.4–37.5; O2SAT 86–96; BMI 30.8
[2021-05-24] MEDS: Insulin Lispro 100 UNIT/ML 3 ML VIAL SUBCUT ×5 (00:25→23:56)
[2021-05-24] MEDS: propofoL 1,000 MG/100 ML VIAL 16.92 MG IVCONT ×5 (04:00→23:59)
[2021-05-24 05:10] LABS: Glucose, Whole Blood 215 mg/dL (60-115)
[2021-05-24 05:22] LABS: VBG Base Excess 7.7 mmol/L; VBG HCO3 32 mmol/L (22-26); VBG pCO2 49 mmHg; VBG pH 7.43 (7.32-7.43); VBG pO2 47 mmHg
[2021-05-24] MEDS: Heparin Sodium,Porcine 5,000 UNIT/ML VIAL 5000 UNIT SUBCUT ×3 (05:30→20:07)
[2021-05-24 05:44] LABS: Hematocrit 27.4 % (42.0-52.0); Hemoglobin 8.6 g/dl (14.0-18.0); Mean Corpuscular HGB Conc 31.4 g/dl (31.0-36.0); Mean Corpuscular Volume 92.3 fL (80.0-98.0); NRBC Pct Auto 0.4 /100WBC (0.0-0.2); Platelet Count 271 X10*3/uL (160-400); Red Blood Count 2.97 X10*6/uL (4.60-5.80); Red Cell Distribution Width 14.4 % (11.0-16.0); White Blood Count 9.1 X10*3/uL (4.8-10.8)
[2021-05-24 06:37] LABS: Glucose, Whole Blood 231 mg/dL (60-115)
[2021-05-24 06:51] LABS: Alanine Aminotransferase 52 U/L (0-40); Albumin Level 2.9 g/dL (3.5-5.0); Alkaline Phosphatase 48 U/L (39-117); Anion Gap 15 (12-20); Aspartate Amino Transferase 23 U/L (5-37); Bilirubin Total 0.6 mg/dL (0.0-1.0); Calcium 9.4 mg/dL (8.4-10.2); Carbon Dioxide 27 mmol/L (22-29); Chloride 107 mmol/L (96-108); Creatinine Clr Calc Pharmacy 51.8; Estimated Glomerular Filt Rate 39; Glucose Random 250 mg/dL (60-115); Sodium 145 mmol/L (135-145); Total Protein 5.6 g/dL (6.5-8.0)
[2021-05-24 07:20] LABS: Venous Blood Gas Refer to POC result
[2021-05-24] MEDS: Famotidine/PF 20 MG/2 ML VIAL IVPUSH (07:32)
[2021-05-24] MEDS: Aspirin 81 MG TAB.CHEW PO (07:32)
[2021-05-24] MEDS: predniSONE 10 MG TABLET 30 MG PO (07:32)
[2021-05-24] MEDS: 0.9 % Sodium Chloride Flush 3 ML SYRINGE IVFLUSH ×2 (07:33→17:26)
[2021-05-24] MEDS: Chlorhexidine Gluc Oral Rinse 15 ML MOUTHWASH BUCCAL ×3 (07:33→20:05)
[2021-05-24] MEDS: Nystatin Powder 15 GM BOTTLE 1 APPL TOPICAL ×3 (07:33→20:05)
[2021-05-24 07:39] LABS: Blood Urea Nitrogen 133 mg/dL (9-16)
[2021-05-24 08:17] LABS: Vancomycin Random 17.2 mcg/mL (15-20)
[2021-05-24 08:19] LABS: Band Neutrophils Percent 12 % (3-5); Lymphocytes Absolute Manual 0.5 X10*3/uL (1.2-4.9); Lymphocytes Percent Manual 5 % (20-40); Monocytes Absolute Manual 0.5 X10*3/uL (0.1-1.2); Monocytes Percent Manual 5 % (2-11); Neutrophils Absolute Manual 8.2 X10*3/uL (2.0-8.3); Neutrophils Percent Manual 78 % (45-73)
[2021-05-24 08:20] LABS: Hypochromasia 1+ (5-14) /OIF; Macrocytosis 1+ (5-14) /OIF; RBC Morphology NOTED
[2021-05-24 08:21] LABS: Acanthocytes 1+ (0-2) /OIF; Platelet Estimate NORMAL (NORMAL); Platelet Morphology Comment NORMAL
[2021-05-24 08:22] LABS: Ovalocytes 1+ (5-14) /OIF
--- NOTE | 2021-05-24 09:31 | MHC.CLN ---
F/U PT REMAINS INTUBATED AND SEDATED NOTED HIGH RESIDUALS 05/24 PT CURRENTLY RECEIVING NEPRO TO MAX GOAL RATE 30ML/HR with 240CC FREE WATER Q 6 HRS PROVIDES 1296KCALS (1743KCALS WITH SEDATION; 20KCALS/KG), 58G PROTEIN (.66G/KG), 1483CC TOTAL WATER FROM FORMULA AND FLUSHES (17ML/KG) IF TF TOLERATED WITH LOW RESIDUALS; RECOMMEND INCREASING NEPRO TO GOAL RATE 35ML/HR WITH 240CC FREE WATER FLUSHES Q 4 HRS TO PROVIDE 1512KCALS (1959KCALS WITH SEDATION), 68G PROTEIN, 2051CC TOTAL WATER MONITOR TOLERANCE, RESIDUALS AND LYTES
[2021-05-24] MEDS: vancomycin HCL 500 MG in 0.9 % Sodium Chloride 100 ML 110 MG IV (10:17)
[2021-05-24 11:30] LABS: Glucose, Whole Blood 204 mg/dL (60-115)
[2021-05-24] MEDS: levoFLOXacin/D5W 750 MG/150 ML PIGGYBACK 100 MG IV (11:54)
[2021-05-24] MEDS: Sulfamethoxazole/Trimethoprim 320 MG in Dextrose 5 % 500 ML 260 MG IV ×3 (11:54→23:57)
--- NOTE | 2021-05-24 15:05 | P.PNCC_ITS ---
Subjective Subjective Date of Service: 05/24/21 Interval History: 66-year-old diabetic with COVID-19 pneumonitis and ARDS ventilated now for 12 days but in the hospital on high-dose steroids for about a month currently on an FiO2 of 70% with oxygen saturations in the 93-95% range respiratory rates high 20s minute ventilatory requirements 12 L tidal volumes 450 cc on pressure control and stable with improving renal function and unchanged chest x-ray with extensive bilateral reticular and reticulonodular infiltrates no distinct in [place] collection or area of consolidation and after given this extensive thought my concerns with his level of immunosuppression on the organisms that she can see namely a Legionella lower Pneumocystis so instead of vancomycin on going to switch therapy to Bactrim and Levaquin and sputum sample an urine sent off for PCR studies Critical Care Time (minutes): 45 Physical Exam Vital Signs: Vital Signs: Last Vital Signs Temp 97.7 F 05/24/21 14:00 Pulse 79 05/24/21 14:00 Resp 23 H 05/24/21 14:00 BP 112/50 L 05/24/21 14:00 Pulse Ox 95 05/24/21 14:00 Oxygen Flow Rate 15 04/28/21 21:37 BMI result Body Mass Index 30.8 Unchanged still a of [place] a 3 where he is still arousable to the no to voice on propofol tolerating without side effect with good urine output improving renal function normal potassium of 4.0 and largely normal sinus rhythm with compensated cardiac function benign abdomen and tolerating his feedings without residual Objective Data Labs CBC & Chem 7: 05/24/21 05:15 05/24/21 05:15 Labs: Laboratory Results - last 24 hr 05/23/21 05/23/21 05/24/21 17:19 23:03 01:02 WBC RBC Hgb Hct MCV MCH MCHC RDW Plt Count MPV Immature Gran % (Auto) Neut % (Auto) Lymph % (Auto) [place] % (Auto) Eos % (Auto) Baso % (Auto) Lymph # (Auto) [place] # (Auto) Eos # (Auto) Baso # (Auto) Abs Immat Gran (auto) Absolute Neuts (auto) Absolute Nucleated RBC Nucleated RBC % (auto) Neutrophils % (Manual) Band Neutrophils % Lymphocytes % (Manual) Monocytes % (Manual) Abs Neuts (Manual) Lymphocytes # (Manual) Monocytes # (Manual) Platelet Estimate Plt Morphology Comment RBC Morphology Hypochromasia Macrocytosis Ovalocytes Acanthocytes (Spur) VBG pH VBG pCO2 VBG pO2 VBG HCO3 VBG O2 Saturation VBG Base Excess Sodium Potassium Chloride Carbon Dioxide Anion Gap BUN Creatinine Estim Creat Clear Calc Estimated GFR POC Glucose 278 H 230 H 215 H Random Glucose Calcium Total Bilirubin AST ALT Alkaline Phosphatase Total Protein Albumin Random Vancomycin 05/24/21 05/24/21 05/24/21 05:15 05:15 05:15 WBC 9.1 RBC 2.97 L Hgb 8.6 L Hct 27.4 L MCV 92.3 MCH 29.0 MCHC 31.4 RDW 14.4 Plt Count 271 MPV 12.0 Immature Gran % (Auto) Cancelled Neut % (Auto) Cancelled Lymph % (Auto) Cancelled [place] % (Auto) Cancelled Eos % (Auto) Cancelled Baso % (Auto) Cancelled Lymph # (Auto) Cancelled [place] # (Auto) Cancelled Eos # (Auto) Cancelled Baso # (Auto) Cancelled Abs Immat Gran (auto) Cancelled Absolute Neuts (auto) Cancelled Absolute Nucleated RBC 0.040 H Nucleated RBC % (auto) 0.4 H Neutrophils % (Manual) 78 H Band Neutrophils % 12 H Lymphocytes % (Manual) 5 L Monocytes % (Manual) 5 Abs Neuts (Manual) 8.2 Lymphocytes # (Manual) 0.5 L Monocytes # (Manual) 0.5 Platelet Estimate NORMAL Plt Morphology Comment NORMAL RBC Morphology NOTED Hypochromasia 1+ (5-14) Macrocytosis 1+ (5-14) Ovalocytes 1+ (5-14) Acanthocytes (Spur) 1+ (0-2) VBG pH 7.43 VBG pCO2 49 VBG pO2 47 VBG HCO3 32 H VBG O2 Saturation 77.0 VBG Base Excess 7.7 Sodium 145 Potassium 4.0 Chloride 107 Carbon Dioxide 27 Anion Gap 15 BUN 133 H Creatinine 1.74 H Estim Creat Clear Calc 51.8 Estimated GFR 39 POC Glucose Random Glucose 250 H Calcium 9.4 Total Bilirubin 0.6 AST 23 ALT 52 H Alkaline Phosphatase 48 Total Protein 5.6 L Albumin 2.9 L Random Vancomycin 05/24/21 05/24/21 05/24/21 06:29 07:47 11:26 WBC RBC Hgb Hct MCV MCH MCHC RDW Plt Count MPV Immature Gran % (Auto) Neut % (Auto) Lymph % (Auto) [place] % (Auto) Eos % (Auto) Baso % (Auto) Lymph # (Auto) [place] # (Auto) Eos # (Auto) Baso # (Auto) Abs Immat Gran (auto) Absolute Neuts (auto) Absolute Nucleated RBC Nucleated RBC % (auto) Neutrophils % (Manual) Band Neutrophils % Lymphocytes % (Manual) Monocytes % (Manual) Abs Neuts (Manual) Lymphocytes # (Manual) Monocytes # (Manual) Platelet Estimate Plt Morphology Comment RBC Morphology Hypochromasia Macrocytosis Ovalocytes Acanthocytes (Spur) VBG pH VBG pCO2 VBG pO2 VBG HCO3 VBG O2 Saturation VBG Base Excess Sodium Potassium Chloride Carbon Dioxide Anion Gap BUN Creatinine Estim Creat Clear Calc Estimated GFR POC Glucose 231 H 204 H Random Glucose Calcium Total Bilirubin AST ALT Alkaline Phosphatase Total Protein Albumin Random Vancomycin 17.2 Microbiology Microbiology Results: Microbiology 05/22/21 15:44 Sputum - Suctioned Gram Stain - Final 05/22/21 15:44 Sputum - Suctioned Sputum Culture - Final 05/22/21 11:32 Urine Catheterized - Camacho Catheter Urine Culture - Preliminary Gram negative cathy 05/19/21 16:47 Blood - Venous Blood Culture - Preliminary No growth after 48 hours. 05/19/21 16:49 Blood - Venous Blood Culture - Preliminary No growth after 48 hours. 05/15/21 08:25 Blood - Venous Blood Culture - Final No growth after 5 days. 05/15/21 08:25 Blood - Venous Blood Culture - Final No growth after 5 days. 05/17/21 15:20 Sputum - Suctioned Gram Stain - Final 05/17/21 15:20 Sputum - Suctioned Sputum Culture - Final 05/13/21 Unknown Urine Catheterized - Camacho Catheter Urine Culture - Final Serratia marcescens 04/28/21 22:17 Blood - Venous Blood Culture - Final No growth after 5 days. 04/28/21 22:17 Blood - Venous Blood Culture - Final No growth after 5 days. Progress Note: A&P Assessment and plan (1) AV block: Status: Acute (2) CHF (congestive heart failure): Status: Acute (3) Type 2 diabetes mellitus: Status: Acute (4) JÚNIOR (acute kidney injury): Status: Acute (5) SARS-CoV-2 positive: Status: Acute (6) ARDS (adult respiratory distress syndrome): Status: Acute (7) CKD (chronic kidney disease) stage 3, GFR 30-59 ml/min: Status: Acute (8) COVID-19 determined by clinical diagnostic criteria: Status: Acute (9) Mobitz (type) I (Wenckebach's) atrioventricular block: Status: Acute (10) Chronic renal failure: Status: Acute (11) Elevated troponin: Status: Acute (12) Acute kidney injury superimposed on CKD: Status: Acute (13) Elevated troponin: Status: Acute (14) Acute hypoxemic respiratory failure due to COVID-19: Status: Acute (15) Leg swelling: Status: Acute Assessment and Plan: Holding our own at present and empirically covering for secondary bacterial infection while we await further results on the sputum and will follow him radiographically follow renal function closely Quality Stroke Does the patient have a stroke diagnosis?: No VTE Prior VTE?: No VTE Risk Level:: Medical - moderate - high VTE Device Contraindication: Treatment Not Indicated VTE Drug Contraindication: N/A - Med Ordered
--- NOTE | 2021-05-24 16:06 | PM.PNNEP ---
Subjective Subjective Date of Service: 05/24/21 Principal diagnosis: COVID, JÚNIOR, CKD Interval history: Seen this AM. Events noted; D/W ICU Attending Physical Exam Vital Signs: Vital Signs: Last Vital Signs Temp 97.7 F 05/24/21 14:00 Pulse 79 05/24/21 14:00 Resp 23 H 05/24/21 14:00 BP 112/50 L 05/24/21 14:00 Pulse Ox 95 05/24/21 14:00 Oxygen Flow Rate 15 04/28/21 21:37 BMI result Body Mass Index 30.8 Const: Other: Intubated Neck: Neck: Yes supple Resp: Auscultation: diminished lung sounds Cardio: Rate: regular rate GI: Palpation (GI): Soft to palpation Neuro: Other: Sedated Objective Data Labs CBC & Chem 7: 05/24/21 05:15 05/24/21 05:15 Labs: Laboratory Results - last 24 hr 05/23/21 05/23/21 05/24/21 17:19 23:03 01:02 WBC RBC Hgb Hct MCV MCH MCHC RDW Plt Count MPV Immature Gran % (Auto) Neut % (Auto) Lymph % (Auto) [place] % (Auto) Eos % (Auto) Baso % (Auto) Lymph # (Auto) [place] # (Auto) Eos # (Auto) Baso # (Auto) Abs Immat Gran (auto) Absolute Neuts (auto) Absolute Nucleated RBC Nucleated RBC % (auto) Neutrophils % (Manual) Band Neutrophils % Lymphocytes % (Manual) Monocytes % (Manual) Abs Neuts (Manual) Lymphocytes # (Manual) Monocytes # (Manual) Platelet Estimate Plt Morphology Comment RBC Morphology Hypochromasia Macrocytosis Ovalocytes Acanthocytes (Spur) VBG pH VBG pCO2 VBG pO2 VBG HCO3 VBG O2 Saturation VBG Base Excess Sodium Potassium Chloride Carbon Dioxide Anion Gap BUN Creatinine Estim Creat Clear Calc Estimated GFR POC Glucose 278 H 230 H 215 H Random Glucose Calcium Total Bilirubin AST ALT Alkaline Phosphatase Total Protein Albumin Random Vancomycin 05/24/21 05/24/21 05/24/21 05:15 05:15 05:15 WBC 9.1 RBC 2.97 L Hgb 8.6 L Hct 27.4 L MCV 92.3 MCH 29.0 MCHC 31.4 RDW 14.4 Plt Count 271 MPV 12.0 Immature Gran % (Auto) Cancelled Neut % (Auto) Cancelled Lymph % (Auto) Cancelled [place] % (Auto) Cancelled Eos % (Auto) Cancelled Baso % (Auto) Cancelled Lymph # (Auto) Cancelled [place] # (Auto) Cancelled Eos # (Auto) Cancelled Baso # (Auto) Cancelled Abs Immat Gran (auto) Cancelled Absolute Neuts (auto) Cancelled Absolute Nucleated RBC 0.040 H Nucleated RBC % (auto) 0.4 H Neutrophils % (Manual) 78 H Band Neutrophils % 12 H Lymphocytes % (Manual) 5 L Monocytes % (Manual) 5 Abs Neuts (Manual) 8.2 Lymphocytes # (Manual) 0.5 L Monocytes # (Manual) 0.5 Platelet Estimate NORMAL Plt Morphology Comment NORMAL RBC Morphology NOTED Hypochromasia 1+ (5-14) Macrocytosis 1+ (5-14) Ovalocytes 1+ (5-14) Acanthocytes (Spur) 1+ (0-2) VBG pH 7.43 VBG pCO2 49 VBG pO2 47 VBG HCO3 32 H VBG O2 Saturation 77.0 VBG Base Excess 7.7 Sodium 145 Potassium 4.0 Chloride 107 Carbon Dioxide 27 Anion Gap 15 BUN 133 H Creatinine 1.74 H Estim Creat Clear Calc 51.8 Estimated GFR 39 POC Glucose Random Glucose 250 H Calcium 9.4 Total Bilirubin 0.6 AST 23 ALT 52 H Alkaline Phosphatase 48 Total Protein 5.6 L Albumin 2.9 L Random Vancomycin 05/24/21 05/24/21 05/24/21 06:29 07:47 11:26 WBC RBC Hgb Hct MCV MCH MCHC RDW Plt Count MPV Immature Gran % (Auto) Neut % (Auto) Lymph % (Auto) [place] % (Auto) Eos % (Auto) Baso % (Auto) Lymph # (Auto) [place] # (Auto) Eos # (Auto) Baso # (Auto) Abs Immat Gran (auto) Absolute Neuts (auto) Absolute Nucleated RBC Nucleated RBC % (auto) Neutrophils % (Manual) Band Neutrophils % Lymphocytes % (Manual) Monocytes % (Manual) Abs Neuts (Manual) Lymphocytes # (Manual) Monocytes # (Manual) Platelet Estimate Plt Morphology Comment RBC Morphology Hypochromasia Macrocytosis Ovalocytes Acanthocytes (Spur) VBG pH VBG pCO2 VBG pO2 VBG HCO3 VBG O2 Saturation VBG Base Excess Sodium Potassium Chloride Carbon Dioxide Anion Gap BUN Creatinine Estim Creat Clear Calc Estimated GFR POC Glucose 231 H 204 H Random Glucose Calcium Total Bilirubin AST ALT Alkaline Phosphatase Total Protein Albumin Random Vancomycin 17.2 Microbiology Microbiology Results: Microbiology 05/22/21 15:44 Sputum - Suctioned Gram Stain - Final 05/22/21 15:44 Sputum - Suctioned Sputum Culture - Final 05/22/21 11:32 Urine Catheterized - Camacho Catheter Urine Culture - Preliminary Gram negative cathy 05/19/21 16:47 Blood - Venous Blood Culture - Preliminary No growth after 48 hours. 05/19/21 16:49 Blood - Venous Blood Culture - Preliminary No growth after 48 hours. 05/15/21 08:25 Blood - Venous Blood Culture - Final No growth after 5 days. 05/15/21 08:25 Blood - Venous Blood Culture - Final No growth after 5 days. 05/17/21 15:20 Sputum - Suctioned Gram Stain - Final 05/17/21 15:20 Sputum - Suctioned Sputum Culture - Final 05/13/21 Unknown Urine Catheterized - Camacho Catheter Urine Culture - Final Serratia marcescens 04/28/21 22:17 Blood - Venous Blood Culture - Final No growth after 5 days. 04/28/21 22:17 Blood - Venous Blood Culture - Final No growth after 5 days. Procedures Date of Service Date of Service: 05/24/21 Assessment & Plan Assessment and plan (1) JÚNIOR (acute kidney injury): Status: Acute Assessment and Plan: JÚNIOR due to compromised kidney perfusion in the setting of SARS COV 2 known CKD 3 due to DM/HTN no indication for dialysis today Needs to watch creatinine and K given he is started on Bactrim sodium zirconium as needed to correct hyperkalemia Concur with current medical management Labs AM. Shall closely F/U Time Spent With Patient Time: Total time spent is greater than 50% in coordination of care (as documented) at patient's floor/unit and/or counseling patient: Progress Note: Quality Stroke Does the patient have a stroke diagnosis?: No
[2021-05-24 17:56] LABS: Glucose, Whole Blood 269 mg/dL (60-115)
--- NOTE | 2021-05-24 19:44 | PC.NURSE ---
Per SKINNY Knowles, do not reposition this pt. overnight and leave in current position which is side-lying to the right hand side. Give care as necessary, but do not reposition pt. Will provide care to pt.'s backside, including massage and barrier ointments Q1-2hrs to promote circulation and skin integrity while we are unable to reposition pt. from [id number].
[2021-05-24] MEDS: Insulin Glargine,Hum.rec.anlog 100 UNIT/ML 10 ML VIAL 24 UNIT SUBCUT (20:05)
[2021-05-24] MEDS: Atorvastatin Calcium 20 MG TABLET PO (20:07)
[2021-05-24 23:45] LABS: Glucose, Whole Blood 285 mg/dL (60-115)
[2021-05-25] VITALS (30 sets, daily range): BP systolic 101–138; BP diastolic 47–60; PULSE 75–93; RESP 19–27; TEMP 27.4–38.1; O2SAT 90–95; BMI 30.8
[2021-05-25] MEDS: Heparin Sodium,Porcine 5,000 UNIT/ML VIAL 5000 UNIT SUBCUT ×3 (03:22→19:55)
[2021-05-25] MEDS: propofoL 1,000 MG/100 ML VIAL 16.92 MG IVCONT ×4 (04:14→19:55)
[2021-05-25 05:32] LABS: Glucose, Whole Blood 280 mg/dL (60-115)
[2021-05-25 05:34] LABS: VBG Base Excess 3.2 mmol/L; VBG HCO3 28 mmol/L (22-26); VBG pCO2 46 mmHg; VBG pH 7.39 (7.32-7.43); VBG pO2 64 mmHg
[2021-05-25 05:37] LABS: Hematocrit 26.9 % (42.0-52.0); Hemoglobin 8.3 g/dl (14.0-18.0); Mean Corpuscular HGB Conc 30.9 g/dl (31.0-36.0); Mean Corpuscular Hemoglobin 28.3 pg (27.0-33.0); Mean Corpuscular Volume 91.8 fL (80.0-98.0); Mean Platelet Volume 11.7 fL (9.4-12.4); NRBC Pct Auto 0.7 /100WBC (0.0-0.2); Platelet Count 286 X10*3/uL (160-400); Red Blood Count 2.93 X10*6/uL (4.60-5.80); Red Cell Distribution Width 14.7 % (11.0-16.0); White Blood Count 8.8 X10*3/uL (4.8-10.8)
[2021-05-25] MEDS: Insulin Lispro 100 UNIT/ML 3 ML VIAL SUBCUT ×4 (05:38→23:46)
[2021-05-25] MEDS: Sulfamethoxazole/Trimethoprim 320 MG in Dextrose 5 % 500 ML 260 MG IV ×3 (05:39→18:04)
[2021-05-25 06:01] LABS: Band Neutrophils Percent 8 % (3-5); Eosinophils Absolute Manual 0.1 X10*3/uL (0.0-0.4); Eosinophils Percent Manual 1 % (0-4); Lymphocytes Absolute Manual 1.1 X10*3/uL (1.2-4.9); Lymphocytes Percent Manual 13 % (20-40); Metamyelocytes Absolute 0.6 X10*3/uL; Metamyelocytes Percent 7 %; Monocytes Absolute Manual 0.5 X10*3/uL (0.1-1.2); Monocytes Percent Manual 6 % (2-11); Myelocytes Absolute 0.1 X10*/uL; Myelocytes Percent 1 %; Neutrophils Absolute Manual 6.3 X10*3/uL (2.0-8.3); Neutrophils Percent Manual 64 % (45-73)
[2021-05-25 06:02] LABS: Hypochromasia 1+ (5-14) /OIF; Ovalocytes 1+ (5-14) /OIF; Polychromasia 1+ (0-2) /OIF; RBC Morphology NOTED; Schistocytes 1+ (0-2) /OIF
[2021-05-25 06:03] LABS: Alanine Aminotransferase 40 U/L (0-40); Albumin Level 2.9 g/dL (3.5-5.0); Alkaline Phosphatase 47 U/L (39-117); Anion Gap 13 (12-20); Aspartate Amino Transferase 16 U/L (5-37); Bilirubin Total 0.4 mg/dL (0.0-1.0); C Reactive Protein 2.23 mg/dL (< or = 0.50); Calcium 9.3 mg/dL (8.4-10.2); Carbon Dioxide 26 mmol/L (22-29); Chloride 108 mmol/L (96-108); Creatinine Clr Calc Pharmacy 46.7; Estimated Glomerular Filt Rate 35; Glucose Random 320 mg/dL (60-115); Platelet Estimate NORMAL (NORMAL); Platelet Morphology Comment NORMAL; Potassium 4.4 mmol/L (3.3-5.1); Sodium 143 mmol/L (135-145); Total Protein 5.6 g/dL (6.5-8.0)
[2021-05-25 06:11] LABS: Blood Urea Nitrogen 118 mg/dL (9-16)
[2021-05-25 06:14] LABS: Venous Blood Gas Refer to POC result
[2021-05-25] MEDS: Famotidine/PF 20 MG/2 ML VIAL IVPUSH (08:10)
[2021-05-25] MEDS: predniSONE 5 MG TABLET 25 MG PO (08:10)
[2021-05-25] MEDS: Chlorhexidine Gluc Oral Rinse 15 ML MOUTHWASH BUCCAL ×3 (08:10→20:10)
[2021-05-25] MEDS: Aspirin 81 MG TAB.CHEW PO (08:11)
[2021-05-25] MEDS: 0.9 % Sodium Chloride Flush 3 ML SYRINGE IVFLUSH (08:11)
[2021-05-25] MEDS: Nystatin Powder 15 GM BOTTLE 1 APPL TOPICAL ×3 (08:11→20:10)
[2021-05-25] MEDS: levoFLOXacin/D5W 250 MG/50 ML PIGGYBACK 50 MG IV (09:00)
--- NOTE | 2021-05-25 11:43 | P.PNNP_ITS ---
Subjective Subjective Date of Service: 05/25/21 Principal diagnosis: COVID, JÚNIOR, CKD Interval history: Seen this AM. Events noted; D/W ICU Attending Physical Exam Vital Signs: Vital Signs: Last Vital Signs Temp 97.7 F 05/25/21 11:00 Pulse 86 05/25/21 11:00 Resp 26 H 05/25/21 11:00 BP 133/60 05/25/21 11:00 Pulse Ox 90 L 05/25/21 11:00 Oxygen Flow Rate 15 04/28/21 21:37 BMI result Body Mass Index 30.8 Const: General: no acute distress Neck: Neck: Yes supple Resp: Auscultation: diminished lung sounds Cardio: Rate: regular rate GI: Palpation (GI): Soft to palpation Neuro: Other: Sedated Objective Data Labs CBC & Chem 7: 05/25/21 05:25 05/25/21 05:25 Labs: Laboratory Results - last 24 hr 05/24/21 05/24/21 05/25/21 17:39 23:36 05:19 WBC RBC Hgb Hct MCV MCH MCHC RDW Plt Count MPV Immature Gran % (Auto) Neut % (Auto) Lymph % (Auto) [place] % (Auto) Eos % (Auto) Baso % (Auto) Lymph # (Auto) [place] # (Auto) Eos # (Auto) Baso # (Auto) Abs Immat Gran (auto) Absolute Neuts (auto) Absolute Nucleated RBC Nucleated RBC % (auto) Neutrophils % (Manual) Band Neutrophils % Lymphocytes % (Manual) Monocytes % (Manual) Eosinophils % (Manual) Metamyelocytes % Myelocytes % Abs Neuts (Manual) Lymphocytes # (Manual) Monocytes # (Manual) Eosinophils # (Manual) Metamyelocytes # Myelocytes # Platelet Estimate Plt Morphology Comment RBC Morphology Polychromasia Hypochromasia Ovalocytes Schistocytes VBG pH VBG pCO2 VBG pO2 VBG HCO3 VBG O2 Saturation VBG Base Excess Sodium Potassium Chloride Carbon Dioxide Anion Gap BUN Creatinine Estim Creat Clear Calc Estimated GFR POC Glucose 269 H 285 H 280 H Random Glucose Calcium Total Bilirubin AST ALT Alkaline Phosphatase C-Reactive Protein Total Protein Albumin 05/25/21 05/25/21 05/25/21 05:25 05:25 05:27 WBC 8.8 RBC 2.93 L Hgb 8.3 L Hct 26.9 L MCV 91.8 MCH 28.3 MCHC 30.9 L RDW 14.7 Plt Count 286 MPV 11.7 Immature Gran % (Auto) Cancelled Neut % (Auto) Cancelled Lymph % (Auto) Cancelled [place] % (Auto) Cancelled Eos % (Auto) Cancelled Baso % (Auto) Cancelled Lymph # (Auto) Cancelled [place] # (Auto) Cancelled Eos # (Auto) Cancelled Baso # (Auto) Cancelled Abs Immat Gran (auto) Cancelled Absolute Neuts (auto) Cancelled Absolute Nucleated RBC 0.060 H Nucleated RBC % (auto) 0.7 H Neutrophils % (Manual) 64 Band Neutrophils % 8 H Lymphocytes % (Manual) 13 L Monocytes % (Manual) 6 Eosinophils % (Manual) 1 Metamyelocytes % 7 Myelocytes % 1 Abs Neuts (Manual) 6.3 Lymphocytes # (Manual) 1.1 L Monocytes # (Manual) 0.5 Eosinophils # (Manual) 0.1 Metamyelocytes # 0.6 Myelocytes # 0.1 Platelet Estimate NORMAL Plt Morphology Comment NORMAL RBC Morphology NOTED Polychromasia 1+ (0-2) Hypochromasia 1+ (5-14) Ovalocytes 1+ (5-14) Schistocytes 1+ (0-2) VBG pH 7.39 VBG pCO2 46 VBG pO2 64 VBG HCO3 28 H VBG O2 Saturation 89.0 VBG Base Excess 3.2 Sodium 143 Potassium 4.4 Chloride 108 Carbon Dioxide 26 Anion Gap 13 BUN 118 H Creatinine 1.93 H Estim Creat Clear Calc 46.7 Estimated GFR 35 POC Glucose Random Glucose 320 H Calcium 9.3 Total Bilirubin 0.4 AST 16 ALT 40 Alkaline Phosphatase 47 C-Reactive Protein 2.23 H Total Protein 5.6 L Albumin 2.9 L Microbiology Microbiology Results: Microbiology 05/22/21 11:32 Urine Catheterized - Camacho Catheter Urine Culture - Final Serratia marcescens 05/19/21 16:47 Blood - Venous Blood Culture - Final No growth after 5 days. 05/19/21 16:49 Blood - Venous Blood Culture - Final No growth after 5 days. 05/22/21 15:44 Sputum - Suctioned Gram Stain - Final 05/22/21 15:44 Sputum - Suctioned Sputum Culture - Final 05/15/21 08:25 Blood - Venous Blood Culture - Final No growth after 5 days. 05/15/21 08:25 Blood - Venous Blood Culture - Final No growth after 5 days. 05/17/21 15:20 Sputum - Suctioned Gram Stain - Final 05/17/21 15:20 Sputum - Suctioned Sputum Culture - Final 05/13/21 Unknown Urine Catheterized - Camacho Catheter Urine Culture - Final Serratia marcescens 04/28/21 22:17 Blood - Venous Blood Culture - Final No growth after 5 days. 04/28/21 22:17 Blood - Venous Blood Culture - Final No growth after 5 days. Procedures Date of Service Date of Service: 05/25/21 Assessment & Plan Assessment and plan (1) JÚNIOR (acute kidney injury): Status: Acute Assessment and Plan: JÚNIOR due to compromised kidney perfusion in the setting of SARS COV 2 known CKD 3 due to DM/HTN no indication for dialysis Needs to watch creatinine and K given he is started on Bactrim sodium zirconium as needed to correct hyperkalemia Concur with current medical management Labs AM. Shall closely F/U Time Spent With Patient Time: Total time spent is greater than 50% in coordination of care (as documented) at patient's floor/unit and/or counseling patient: Progress Note: Quality Stroke Does the patient have a stroke diagnosis?: No
[2021-05-25 11:57] LABS: Glucose, Whole Blood 274 mg/dL (60-115)
--- NOTE | 2021-05-25 13:32 | MHC.CM.PN ---
Pt continues on ventilatory support in ICU secondary to respiratory failure from COVID: FiO2 has been reduced to 65% and pt is showing very slow signs of clinical improvement. CM will continue to follow for d/c planning
--- NOTE | 2021-05-25 17:05 | PM.CCPN ---
Subjective Subjective Date of Service: 05/25/21 Interval History: 66-year-old male with COVID-19 pneumonitis and hypoxemic respiratory failure from ARDS intubated and now close to 11-12 days in the hospital for a month on tapering steroids at this point and just continue surveillance for secondary infections and now being treated with Levaquin for a Serratia urinary tract infection sputum still showing 4+ polys and predominant Gram-positive cocci but no specific organism but were concerned because of his diabetes and renal insufficiency and steroid use with that degree of immunosuppression we worry about Legionella possible listeria or even Pneumocystis so were covering him with Levaquin and Bactrim initially but intravenously slowly FiO2 is coming down maintaining oxygen saturations in the mid 90s and on pressure control with stable a total airway pressure his volumes are coming up indicating improvement in compliance Critical Care Time (minutes): 45 Physical Exam Vital Signs: Vital Signs: Last Vital Signs Temp 98.1 F 05/25/21 16:00 Pulse 86 05/25/21 16:00 Resp 25 H 05/25/21 16:00 BP 117/54 L 05/25/21 16:00 Pulse Ox 92 05/25/21 16:00 Oxygen Flow Rate 15 04/28/21 21:37 BMI result Body Mass Index 30.8 sedated and intubated and he still does respond sometimes to allow voice so he is a [place] 3 and nonfocal neurologically cardiac exam bedside echo preserved LV function lungs without accessory muscle use or diaphragmatic effort tolerating feedings in abdomen is soft with no hepatomegaly Objective Data Labs CBC & Chem 7: 05/26/21 05:20 05/26/21 05:20 Labs: Laboratory Results - last 24 hr 05/24/21 05/24/21 05/25/21 17:39 23:36 05:19 WBC RBC Hgb Hct MCV MCH MCHC RDW Plt Count MPV Immature Gran % (Auto) Neut % (Auto) Lymph % (Auto) [place] % (Auto) Eos % (Auto) Baso % (Auto) Lymph # (Auto) [place] # (Auto) Eos # (Auto) Baso # (Auto) Abs Immat Gran (auto) Absolute Neuts (auto) Absolute Nucleated RBC Nucleated RBC % (auto) Neutrophils % (Manual) Band Neutrophils % Lymphocytes % (Manual) Monocytes % (Manual) Eosinophils % (Manual) Metamyelocytes % Myelocytes % Abs Neuts (Manual) Lymphocytes # (Manual) Monocytes # (Manual) Eosinophils # (Manual) Metamyelocytes # Myelocytes # Platelet Estimate Plt Morphology Comment RBC Morphology Polychromasia Hypochromasia Ovalocytes Schistocytes VBG pH VBG pCO2 VBG pO2 VBG HCO3 VBG O2 Saturation VBG Base Excess Sodium Potassium Chloride Carbon Dioxide Anion Gap BUN Creatinine Estim Creat Clear Calc Estimated GFR POC Glucose 269 H 285 H 280 H Random Glucose Calcium Total Bilirubin AST ALT Alkaline Phosphatase C-Reactive Protein Total Protein Albumin 05/25/21 05/25/21 05/25/21 05:25 05:25 05:27 WBC 8.8 RBC 2.93 L Hgb 8.3 L Hct 26.9 L MCV 91.8 MCH 28.3 MCHC 30.9 L RDW 14.7 Plt Count 286 MPV 11.7 Immature Gran % (Auto) Cancelled Neut % (Auto) Cancelled Lymph % (Auto) Cancelled [place] % (Auto) Cancelled Eos % (Auto) Cancelled Baso % (Auto) Cancelled Lymph # (Auto) Cancelled [place] # (Auto) Cancelled Eos # (Auto) Cancelled Baso # (Auto) Cancelled Abs Immat Gran (auto) Cancelled Absolute Neuts (auto) Cancelled Absolute Nucleated RBC 0.060 H Nucleated RBC % (auto) 0.7 H Neutrophils % (Manual) 64 Band Neutrophils % 8 H Lymphocytes % (Manual) 13 L Monocytes % (Manual) 6 Eosinophils % (Manual) 1 Metamyelocytes % 7 Myelocytes % 1 Abs Neuts (Manual) 6.3 Lymphocytes # (Manual) 1.1 L Monocytes # (Manual) 0.5 Eosinophils # (Manual) 0.1 Metamyelocytes # 0.6 Myelocytes # 0.1 Platelet Estimate NORMAL Plt Morphology Comment NORMAL RBC Morphology NOTED Polychromasia 1+ (0-2) Hypochromasia 1+ (5-14) Ovalocytes 1+ (5-14) Schistocytes 1+ (0-2) VBG pH 7.39 VBG pCO2 46 VBG pO2 64 VBG HCO3 28 H VBG O2 Saturation 89.0 VBG Base Excess 3.2 Sodium 143 Potassium 4.4 Chloride 108 Carbon Dioxide 26 Anion Gap 13 BUN 118 H Creatinine 1.93 H Estim Creat Clear Calc 46.7 Estimated GFR 35 POC Glucose Random Glucose 320 H Calcium 9.3 Total Bilirubin 0.4 AST 16 ALT 40 Alkaline Phosphatase 47 C-Reactive Protein 2.23 H Total Protein 5.6 L Albumin 2.9 L 05/25/21 11:52 WBC RBC Hgb Hct MCV MCH MCHC RDW Plt Count MPV Immature Gran % (Auto) Neut % (Auto) Lymph % (Auto) [place] % (Auto) Eos % (Auto) Baso % (Auto) Lymph # (Auto) [place] # (Auto) Eos # (Auto) Baso # (Auto) Abs Immat Gran (auto) Absolute Neuts (auto) Absolute Nucleated RBC Nucleated RBC % (auto) Neutrophils % (Manual) Band Neutrophils % Lymphocytes % (Manual) Monocytes % (Manual) Eosinophils % (Manual) Metamyelocytes % Myelocytes % Abs Neuts (Manual) Lymphocytes # (Manual) Monocytes # (Manual) Eosinophils # (Manual) Metamyelocytes # Myelocytes # Platelet Estimate Plt Morphology Comment RBC Morphology Polychromasia Hypochromasia Ovalocytes Schistocytes VBG pH VBG pCO2 VBG pO2 VBG HCO3 VBG O2 Saturation VBG Base Excess Sodium Potassium Chloride Carbon Dioxide Anion Gap BUN Creatinine Estim Creat Clear Calc Estimated GFR POC Glucose 274 H Random Glucose Calcium Total Bilirubin AST ALT Alkaline Phosphatase C-Reactive Protein Total Protein Albumin Microbiology Microbiology Results: Microbiology 05/22/21 11:32 Urine Catheterized - Camacho Catheter Urine Culture - Final Serratia marcescens 05/19/21 16:47 Blood - Venous Blood Culture - Final No growth after 5 days. 05/19/21 16:49 Blood - Venous Blood Culture - Final No growth after 5 days. 05/22/21 15:44 Sputum - Suctioned Gram Stain - Final 05/22/21 15:44 Sputum - Suctioned Sputum Culture - Final 05/15/21 08:25 Blood - Venous Blood Culture - Final No growth after 5 days. 05/15/21 08:25 Blood - Venous Blood Culture - Final No growth after 5 days. 05/17/21 15:20 Sputum - Suctioned Gram Stain - Final 05/17/21 15:20 Sputum - Suctioned Sputum Culture - Final 05/13/21 Unknown Urine Catheterized - Camacho Catheter Urine Culture - Final Serratia marcescens 04/28/21 22:17 Blood - Venous Blood Culture - Final No growth after 5 days. 04/28/21 22:17 Blood - Venous Blood Culture - Final No growth after 5 days. Progress Note: A&P Assessment and plan (1) Diabetes: Status: Acute (2) AV block: Status: Acute (3) CHF (congestive heart failure): Status: Acute (4) Type 2 diabetes mellitus: Status: Acute (5) JÚNIOR (acute kidney injury): Status: Acute (6) SARS-CoV-2 positive: Status: Acute (7) ARDS (adult respiratory distress syndrome): Status: Acute (8) CKD (chronic kidney disease) stage 3, GFR 30-59 ml/min: Status: Acute (9) COVID-19 determined by clinical diagnostic criteria: Status: Acute (10) Mobitz (type) I (Wenckebach's) atrioventricular block: Status: Acute (11) Chronic renal failure: Status: Acute (12) Elevated troponin: Status: Acute (13) Acute kidney injury superimposed on CKD: Status: Acute (14) Elevated troponin: Status: Acute (15) Acute hypoxemic respiratory failure due to COVID-19: Status: Acute (16) Leg swelling: Status: Acute Assessment and Plan: continue to watch for fever spike await the results on our PCR testing as well as surveillance cultures and if we are able to wean his FiO2 into the 50s we might start more sedation holiday and possibly even pressure support trials Quality Stroke Does the patient have a stroke diagnosis?: No VTE Prior VTE?: No VTE Risk Level:: Medical - moderate - high VTE Device Contraindication: Treatment Not Indicated VTE Drug Contraindication: N/A - Med Ordered
[2021-05-25 17:51] LABS: Glucose, Whole Blood 360 mg/dL (60-115)
[2021-05-25] MEDS: Insulin Glargine,Hum.rec.anlog 100 UNIT/ML 10 ML VIAL 24 UNIT SUBCUT (20:10)
[2021-05-25] MEDS: Atorvastatin Calcium 20 MG TABLET PO (20:10)
[2021-05-26] VITALS (30 sets, daily range): BP systolic 95–133; BP diastolic 34–65; PULSE 64–96; RESP 19–30; TEMP 34.8–38.5; O2SAT 89–96; BMI 31.1
[2021-05-26 00:28] LABS: Glucose, Whole Blood 232 mg/dL (60-115)
[2021-05-26] MEDS: Sulfamethoxazole/Trimethoprim 320 MG in Dextrose 5 % 500 ML 260 MG IV ×2 (00:51→05:47)
[2021-05-26] MEDS: propofoL 1,000 MG/100 ML VIAL 16.92 MG IVCONT ×5 (01:38→20:57)
[2021-05-26] MEDS: Heparin Sodium,Porcine 5,000 UNIT/ML VIAL 5000 UNIT SUBCUT ×3 (04:22→19:21)
[2021-05-26 05:25] LABS: Glucose, Whole Blood 224 mg/dL (60-115)
[2021-05-26 05:32] LABS: VBG Base Excess 1.1 mmol/L; VBG HCO3 26 mmol/L (22-26); VBG pCO2 45 mmHg; VBG pH 7.36 (7.32-7.43); VBG pO2 61 mmHg
[2021-05-26 05:50] LABS: Venous Blood Gas Refer to POC result
[2021-05-26] MEDS: levoFLOXacin/D5W 250 MG/50 ML PIGGYBACK 50 MG IV (05:50)
[2021-05-26] MEDS: Insulin Lispro 100 UNIT/ML 3 ML VIAL SUBCUT ×3 (05:51→18:14)
[2021-05-26] MEDS: Acetaminophen Oral Liquid 650 MG/20.3 ML SOLUTION PO (05:51)
[2021-05-26 05:57] LABS: Hematocrit 27.3 % (42.0-52.0); Hemoglobin 8.3 g/dl (14.0-18.0); Mean Corpuscular HGB Conc 30.4 g/dl (31.0-36.0); Mean Corpuscular Hemoglobin 27.9 pg (27.0-33.0); Mean Corpuscular Volume 91.9 fL (80.0-98.0); Mean Platelet Volume 11.9 fL (9.4-12.4); NRBC Pct Auto 0.9 /100WBC (0.0-0.2); Platelet Count 299 X10*3/uL (160-400); Red Blood Count 2.97 X10*6/uL (4.60-5.80); White Blood Count 10.6 X10*3/uL (4.8-10.8)
[2021-05-26 06:18] LABS: Atypical Lymph Absolute Manual 0.1 x10*3/uL; Atypical Lymphs Percent Manual 1 % (0-6); Band Neutrophils Percent 6 % (3-5); Lymphocytes Absolute Manual 0.4 X10*3/uL (1.2-4.9); Lymphocytes Percent Manual 4 % (20-40); Metamyelocytes Absolute 0.3 X10*3/uL; Metamyelocytes Percent 3 %; Monocytes Absolute Manual 0.3 X10*3/uL (0.1-1.2); Monocytes Percent Manual 3 % (2-11); Neutrophils Absolute Manual 9.4 X10*3/uL (2.0-8.3); Neutrophils Percent Manual 83 % (45-73)
[2021-05-26 06:19] LABS: Basophilic Stippling 1+ (0-2) /OIF; Large Platelet PRESENT; Platelet Estimate NORMAL (NORMAL); Platelet Morphology Comment NOTED; Polychromasia 2+ (3-5) /OIF; RBC Morphology NOTED
[2021-05-26 06:34] LABS: Alanine Aminotransferase 39 U/L (0-40); Albumin Level 2.9 g/dL (3.5-5.0); Alkaline Phosphatase 45 U/L (39-117); Anion Gap 15 (12-20); Aspartate Amino Transferase 21 U/L (5-37); Bilirubin Total 0.4 mg/dL (0.0-1.0); Blood Urea Nitrogen 115 mg/dL (9-16); Calcium 9.2 mg/dL (8.4-10.2); Carbon Dioxide 25 mmol/L (22-29); Chloride 106 mmol/L (96-108); Creatinine Clr Calc Pharmacy 40.8; Estimated Glomerular Filt Rate 30; Glucose Random 226 mg/dL (60-115); Potassium 4.7 mmol/L (3.3-5.1); Sodium 141 mmol/L (135-145); Total Protein 5.8 g/dL (6.5-8.0)
[2021-05-26] MEDS: Famotidine/PF 20 MG/2 ML VIAL IVPUSH (08:22)
[2021-05-26] MEDS: 0.9 % Sodium Chloride Flush 3 ML SYRINGE IVFLUSH ×3 (08:22→15:47)
[2021-05-26] MEDS: Chlorhexidine Gluc Oral Rinse 15 ML MOUTHWASH BUCCAL ×3 (08:22→20:57)
[2021-05-26] MEDS: Midazolam HCl/PF 2 MG/2 ML VIAL 3 MG IVPUSH (08:23)
[2021-05-26] MEDS: Nystatin Powder 15 GM BOTTLE 1 APPL TOPICAL ×3 (08:23→21:02)
[2021-05-26] MEDS: metroNIDAZOLE 500 MG TABLET PO ×3 (08:23→21:45)
[2021-05-26] MEDS: predniSONE 20 MG TABLET PO (08:23)
[2021-05-26] MEDS: Aspirin 81 MG TAB.CHEW PO (08:23)
--- NOTE | 2021-05-26 09:05 | MHC.CLN ---
F/U PT REMAINS INTUBATED PT RECEIVING NEPRO TO GOAL RATE 35ML/HR WITH 240CC FREE WATER FLUSHES Q 6 HRS PROVIDES 1512KCALS (1959KCALS WITH SEDATION), 68G PROTEIN, 1571CC TOTAL WATER FROM FORMULA AND FLUSH (18ML/HR) MONITOR TOLERANCE, RESIDUALS AND LYTES
[2021-05-26] MEDS: Sodium Chloride 0.45 % 1,000 ML 80 ML IVCONT ×2 (09:47→20:57)
--- NOTE | 2021-05-26 10:55 | PM.CCPN ---
Subjective Subjective Date of Service: 05/26/21 Interval History: 66-year-old male with continued hypoxemic respiratory failure from COVID-19 pneumonitis and ARDS with acute on chronic renal insufficiency which is stable and on a combination of Bactrim and Levaquin for empiric coverage of a secondary bacterial infection in this immunosuppressed in type 2 diabetic on steroids and today because of a spike in fever to 101 I discontinued the old right-sided central line and put in a fresh 1 on the left side without complication and the repeated blood cultures on him and he is down to an FiO2 of 60% and he has got diminishing minute ventilatory requirements with improving lung compliance and we might even wean his FiO2 to 55% so there is signs of healing and he apparently had very flat internal jugular veins implying diminished effective arterial volume so I am going to supplement with IV fluids to volume replete follow renal function and continued following of his surveillance cultures Critical Care Time (minutes): 45 Physical Exam Vital Signs: Vital Signs: Last Vital Signs Temp 100.6 F H 05/26/21 10:00 Pulse 77 05/26/21 10:00 Resp 20 05/26/21 10:00 BP 99/52 L 05/26/21 10:00 Pulse Ox 93 05/26/21 10:00 Oxygen Flow Rate 15 04/28/21 21:37 BMI result Body Mass Index 31.1 warm well perfused nonfocal neurologically and he does respond through the propofol stable cardiovascular and respiratory tolerating feedings without residuals soft abdomen good no again a megaly Objective Data Labs CBC & Chem 7: 05/26/21 05:20 05/26/21 05:20 Labs: Laboratory Results - last 24 hr 05/25/21 05/25/21 05/25/21 11:52 17:43 23:38 WBC RBC Hgb Hct MCV MCH MCHC RDW Plt Count MPV Immature Gran % (Auto) Neut % (Auto) Lymph % (Auto) [place] % (Auto) Eos % (Auto) Baso % (Auto) Lymph # (Auto) [place] # (Auto) Eos # (Auto) Baso # (Auto) Abs Immat Gran (auto) Absolute Neuts (auto) Absolute Nucleated RBC Nucleated RBC % (auto) Neutrophils % (Manual) Band Neutrophils % Lymphocytes % (Manual) Atypical Lymphs % (Man) Monocytes % (Manual) Metamyelocytes % Abs Neuts (Manual) Lymphocytes # (Manual) Atyp Lymphs # (Manual) Monocytes # (Manual) Metamyelocytes # Platelet Estimate Large Platelets Plt Morphology Comment RBC Morphology Polychromasia Basophilic Stippling VBG pH VBG pCO2 VBG pO2 VBG HCO3 VBG O2 Saturation VBG Base Excess Sodium Potassium Chloride Carbon Dioxide Anion Gap BUN Creatinine Estim Creat Clear Calc Estimated GFR POC Glucose 274 H 360 H* 232 H Random Glucose Calcium Total Bilirubin AST ALT Alkaline Phosphatase Total Protein Albumin 05/26/21 05/26/21 05/26/21 05:15 05:20 05:20 WBC 10.6 RBC 2.97 L Hgb 8.3 L Hct 27.3 L MCV 91.9 MCH 27.9 MCHC 30.4 L RDW 15.0 Plt Count 299 MPV 11.9 Immature Gran % (Auto) Cancelled Neut % (Auto) Cancelled Lymph % (Auto) Cancelled [place] % (Auto) Cancelled Eos % (Auto) Cancelled Baso % (Auto) Cancelled Lymph # (Auto) Cancelled [place] # (Auto) Cancelled Eos # (Auto) Cancelled Baso # (Auto) Cancelled Abs Immat Gran (auto) Cancelled Absolute Neuts (auto) Cancelled Absolute Nucleated RBC 0.100 H Nucleated RBC % (auto) 0.9 H Neutrophils % (Manual) 83 H Band Neutrophils % 6 H Lymphocytes % (Manual) 4 L Atypical Lymphs % (Man) 1 Monocytes % (Manual) 3 Metamyelocytes % 3 Abs Neuts (Manual) 9.4 H Lymphocytes # (Manual) 0.4 L Atyp Lymphs # (Manual) 0.1 Monocytes # (Manual) 0.3 Metamyelocytes # 0.3 Platelet Estimate NORMAL Large Platelets PRESENT Plt Morphology Comment NOTED RBC Morphology NOTED Polychromasia 2+ (3-5) Basophilic Stippling 1+ (0-2) VBG pH VBG pCO2 VBG pO2 VBG HCO3 VBG O2 Saturation VBG Base Excess Sodium 141 Potassium 4.7 Chloride 106 Carbon Dioxide 25 Anion Gap 15 BUN 115 H Creatinine 2.22 H Estim Creat Clear Calc 40.8 Estimated GFR 30 POC Glucose 224 H Random Glucose 226 H Calcium 9.2 Total Bilirubin 0.4 AST 21 ALT 39 Alkaline Phosphatase 45 Total Protein 5.8 L Albumin 2.9 L 05/26/21 05:25 WBC RBC Hgb Hct MCV MCH MCHC RDW Plt Count MPV Immature Gran % (Auto) Neut % (Auto) Lymph % (Auto) [place] % (Auto) Eos % (Auto) Baso % (Auto) Lymph # (Auto) [place] # (Auto) Eos # (Auto) Baso # (Auto) Abs Immat Gran (auto) Absolute Neuts (auto) Absolute Nucleated RBC Nucleated RBC % (auto) Neutrophils % (Manual) Band Neutrophils % Lymphocytes % (Manual) Atypical Lymphs % (Man) Monocytes % (Manual) Metamyelocytes % Abs Neuts (Manual) Lymphocytes # (Manual) Atyp Lymphs # (Manual) Monocytes # (Manual) Metamyelocytes # Platelet Estimate Large Platelets Plt Morphology Comment RBC Morphology Polychromasia Basophilic Stippling VBG pH 7.36 VBG pCO2 45 VBG pO2 61 VBG HCO3 26 VBG O2 Saturation 88.0 VBG Base Excess 1.1 Sodium Potassium Chloride Carbon Dioxide Anion Gap BUN Creatinine Estim Creat Clear Calc Estimated GFR POC Glucose Random Glucose Calcium Total Bilirubin AST ALT Alkaline Phosphatase Total Protein Albumin Microbiology Microbiology Results: Microbiology 05/22/21 11:32 Urine Catheterized - Camacho Catheter Urine Culture - Final Serratia marcescens 05/19/21 16:47 Blood - Venous Blood Culture - Final No growth after 5 days. 05/19/21 16:49 Blood - Venous Blood Culture - Final No growth after 5 days. 05/22/21 15:44 Sputum - Suctioned Gram Stain - Final 05/22/21 15:44 Sputum - Suctioned Sputum Culture - Final 05/15/21 08:25 Blood - Venous Blood Culture - Final No growth after 5 days. 05/15/21 08:25 Blood - Venous Blood Culture - Final No growth after 5 days. 05/17/21 15:20 Sputum - Suctioned Gram Stain - Final 05/17/21 15:20 Sputum - Suctioned Sputum Culture - Final 05/13/21 Unknown Urine Catheterized - Camacho Catheter Urine Culture - Final Serratia marcescens 04/28/21 22:17 Blood - Venous Blood Culture - Final No growth after 5 days. 04/28/21 22:17 Blood - Venous Blood Culture - Final No growth after 5 days. Progress Note: A&P Assessment and plan (1) Diabetes: Status: Acute (2) AV block: Status: Acute (3) CHF (congestive heart failure): Status: Acute (4) Type 2 diabetes mellitus: Status: Acute (5) JÚNIOR (acute kidney injury): Status: Acute (6) SARS-CoV-2 positive: Status: Acute (7) ARDS (adult respiratory distress syndrome): Status: Acute (8) CKD (chronic kidney disease) stage 3, GFR 30-59 ml/min: Status: Acute (9) COVID-19 determined by clinical diagnostic criteria: Status: Acute (10) Mobitz (type) I (Wenckebach's) atrioventricular block: Status: Acute (11) Chronic renal failure: Status: Acute (12) Elevated troponin: Status: Acute (13) Acute kidney injury superimposed on CKD: Status: Acute Assessment and Plan: IV fluids to supplement on him and might attempt an FiO2 of 55% and if tolerated I think a sedation holiday is called for and we might even in addition try pressure support trial as well and maintain antibiotics as above including empiric metronidazole as we await stool studies and PCR results in urinary antigen for Legionella Quality Stroke Does the patient have a stroke diagnosis?: No VTE Prior VTE?: No VTE Risk Level:: Medical - moderate - high VTE Device Contraindication: Treatment Not Indicated VTE Drug Contraindication: N/A - Med Ordered
[2021-05-26 11:00] LABS: Appearance Urine CLEAR; Color Urine YELLOW; Glucose Urine UA NEG (NEG); Leukocyte Esterase Urine NEG (NEG); Nitrite Urine NEG (NEG); PH 5.5 (5.0-8.0); Urine Blood NEG (NEG); Urine Ketones NEG (NEG); Urine Protein NEG (NEG-TRACE)
[2021-05-26 11:15] LABS: Amorphous Sediment Urine 1+ /LPF
[2021-05-26 11:16] LABS: WBC Urine 0-2 /HPF (0-4)
[2021-05-26 11:17] LABS: RBC Urine 0 /HPF (0)
[2021-05-26 11:54] LABS: Glucose, Whole Blood 230 mg/dL (60-115)
[2021-05-26] MEDS: Sulfameth/Trimet 800/160/20 ML 20 ML ORAL.SUSP 40 ML PO ×2 (12:00→18:15)
--- NOTE | 2021-05-26 13:15 | W.PM.CCHP ---
Procedures Date of Service Date of Service: 05/26/21 Central Line Placement Left IJ: Central Line Comments: after sterile preparation and draping and utilizing ultrasound guidance a gained easy access to the left internal jugular vein without complication passing retrograde with Seldinger technique a J tipped guidewire over that a triple-lumen central venous pressure catheter again without complication it was secured chest x-ray showed no pneumothorax no complication no bleeding position of the tip was in the superior vena cava Consent for Procedure: Emergent-no informed consent obtained Time out performed: Yes Sterile Technique Used: Yes Patient placed on monitor/pulse ox: Yes MD prep: mask, gown and gloves Central line prep: Chlorhexidine scrub Local anesthesia used: lidocaine 1% Ultrasound used for placement: Yes Central line lumen inserted: triple Post procedure: sutured in place, good blood return, all ports aspirated, flushed, capped and sterile dressing applied Post procedure x-ray: tip of catheter in good position and no pneumothorax seen Patient tolerated procedure: well and no complications Complications: none
--- NOTE | 2021-05-26 14:16 | PM.PNNEP ---
Subjective Subjective Date of Service: 05/26/21 Principal diagnosis: COVID, JÚNIOR, CKD Interval history: Events noted; All recent data reviewed; D/W ICU Attending Physical Exam Vital Signs: Vital Signs: Last Vital Signs Temp 100.2 F 05/26/21 13:00 Pulse 74 05/26/21 13:00 Resp 20 05/26/21 13:00 BP 114/59 L 05/26/21 13:00 Pulse Ox 89 L 05/26/21 13:00 Oxygen Flow Rate 15 04/28/21 21:37 BMI result Body Mass Index 31.1 Const: Other: Intubated General: no acute distress Resp: Auscultation: diminished lung sounds Cardio: Rate: regular rate GI: Palpation (GI): Soft to palpation Neuro: Other: Sedated Objective Data Labs CBC & Chem 7: 05/26/21 05:20 05/26/21 05:20 Labs: Laboratory Results - last 24 hr 05/25/21 05/25/21 05/26/21 17:43 23:38 05:15 WBC RBC Hgb Hct MCV MCH MCHC RDW Plt Count MPV Immature Gran % (Auto) Neut % (Auto) Lymph % (Auto) [place] % (Auto) Eos % (Auto) Baso % (Auto) Lymph # (Auto) [place] # (Auto) Eos # (Auto) Baso # (Auto) Abs Immat Gran (auto) Absolute Neuts (auto) Absolute Nucleated RBC Nucleated RBC % (auto) Neutrophils % (Manual) Band Neutrophils % Lymphocytes % (Manual) Atypical Lymphs % (Man) Monocytes % (Manual) Metamyelocytes % Abs Neuts (Manual) Lymphocytes # (Manual) Atyp Lymphs # (Manual) Monocytes # (Manual) Metamyelocytes # Platelet Estimate Large Platelets Plt Morphology Comment RBC Morphology Polychromasia Basophilic Stippling VBG pH VBG pCO2 VBG pO2 VBG HCO3 VBG O2 Saturation VBG Base Excess Sodium Potassium Chloride Carbon Dioxide Anion Gap BUN Creatinine Estim Creat Clear Calc Estimated GFR POC Glucose 360 H* 232 H 224 H Random Glucose Calcium Total Bilirubin AST ALT Alkaline Phosphatase Total Protein Albumin Urine Color Urine Appearance Urine pH Ur Specific [place] Urine Protein Urine Glucose (UA) Urine Ketones Urine Blood Urine Nitrite Ur Leukocyte Esterase Urine RBC Urine WBC Ur Squamous Epith Cells Amorphous Sediment Urine Bacteria 05/26/21 05/26/21 05/26/21 05:20 05:20 05:25 WBC 10.6 RBC 2.97 L Hgb 8.3 L Hct 27.3 L MCV 91.9 MCH 27.9 MCHC 30.4 L RDW 15.0 Plt Count 299 MPV 11.9 Immature Gran % (Auto) Cancelled Neut % (Auto) Cancelled Lymph % (Auto) Cancelled [place] % (Auto) Cancelled Eos % (Auto) Cancelled Baso % (Auto) Cancelled Lymph # (Auto) Cancelled [place] # (Auto) Cancelled Eos # (Auto) Cancelled Baso # (Auto) Cancelled Abs Immat Gran (auto) Cancelled Absolute Neuts (auto) Cancelled Absolute Nucleated RBC 0.100 H Nucleated RBC % (auto) 0.9 H Neutrophils % (Manual) 83 H Band Neutrophils % 6 H Lymphocytes % (Manual) 4 L Atypical Lymphs % (Man) 1 Monocytes % (Manual) 3 Metamyelocytes % 3 Abs Neuts (Manual) 9.4 H Lymphocytes # (Manual) 0.4 L Atyp Lymphs # (Manual) 0.1 Monocytes # (Manual) 0.3 Metamyelocytes # 0.3 Platelet Estimate NORMAL Large Platelets PRESENT Plt Morphology Comment NOTED RBC Morphology NOTED Polychromasia 2+ (3-5) Basophilic Stippling 1+ (0-2) VBG pH 7.36 VBG pCO2 45 VBG pO2 61 VBG HCO3 26 VBG O2 Saturation 88.0 VBG Base Excess 1.1 Sodium 141 Potassium 4.7 Chloride 106 Carbon Dioxide 25 Anion Gap 15 BUN 115 H Creatinine 2.22 H Estim Creat Clear Calc 40.8 Estimated GFR 30 POC Glucose Random Glucose 226 H Calcium 9.2 Total Bilirubin 0.4 AST 21 ALT 39 Alkaline Phosphatase 45 Total Protein 5.8 L Albumin 2.9 L Urine Color Urine Appearance Urine pH Ur Specific [place] Urine Protein Urine Glucose (UA) Urine Ketones Urine Blood Urine Nitrite Ur Leukocyte Esterase Urine RBC Urine WBC Ur Squamous Epith Cells Amorphous Sediment Urine Bacteria 05/26/21 05/26/21 10:45 11:50 WBC RBC Hgb Hct MCV MCH MCHC RDW Plt Count MPV Immature Gran % (Auto) Neut % (Auto) Lymph % (Auto) [place] % (Auto) Eos % (Auto) Baso % (Auto) Lymph # (Auto) [place] # (Auto) Eos # (Auto) Baso # (Auto) Abs Immat Gran (auto) Absolute Neuts (auto) Absolute Nucleated RBC Nucleated RBC % (auto) Neutrophils % (Manual) Band Neutrophils % Lymphocytes % (Manual) Atypical Lymphs % (Man) Monocytes % (Manual) Metamyelocytes % Abs Neuts (Manual) Lymphocytes # (Manual) Atyp Lymphs # (Manual) Monocytes # (Manual) Metamyelocytes # Platelet Estimate Large Platelets Plt Morphology Comment RBC Morphology Polychromasia Basophilic Stippling VBG pH VBG pCO2 VBG pO2 VBG HCO3 VBG O2 Saturation VBG Base Excess Sodium Potassium Chloride Carbon Dioxide Anion Gap BUN Creatinine Estim Creat Clear Calc Estimated GFR POC Glucose 230 H Random Glucose Calcium Total Bilirubin AST ALT Alkaline Phosphatase Total Protein Albumin Urine Color YELLOW Urine Appearance CLEAR Urine pH 5.5 Ur Specific [place] 1.020 Urine Protein NEG Urine Glucose (UA) NEG Urine Ketones NEG Urine Blood NEG Urine Nitrite NEG Ur Leukocyte Esterase NEG Urine RBC 0 Urine WBC 0-2 Ur Squamous Epith Cells NONE Amorphous Sediment 1+ Urine Bacteria NONE Microbiology Microbiology Results: Microbiology 05/22/21 11:32 Urine Catheterized - Camacho Catheter Urine Culture - Final Serratia marcescens 05/19/21 16:47 Blood - Venous Blood Culture - Final No growth after 5 days. 05/19/21 16:49 Blood - Venous Blood Culture - Final No growth after 5 days. 05/22/21 15:44 Sputum - Suctioned Gram Stain - Final 05/22/21 15:44 Sputum - Suctioned Sputum Culture - Final 05/15/21 08:25 Blood - Venous Blood Culture - Final No growth after 5 days. 05/15/21 08:25 Blood - Venous Blood Culture - Final No growth after 5 days. 05/17/21 15:20 Sputum - Suctioned Gram Stain - Final 05/17/21 15:20 Sputum - Suctioned Sputum Culture - Final 05/13/21 Unknown Urine Catheterized - Camacho Catheter Urine Culture - Final Serratia marcescens 04/28/21 22:17 Blood - Venous Blood Culture - Final No growth after 5 days. 04/28/21 22:17 Blood - Venous Blood Culture - Final No growth after 5 days. Procedures Date of Service Date of Service: 05/26/21 Assessment & Plan Assessment and plan (1) JÚNIOR (acute kidney injury): Status: Acute Assessment and Plan: JÚNIOR due to compromised kidney perfusion in the setting of SARS COV 2 known CKD 3 due to DM/HTN no indication for dialysis; Shall replae volume today Needs to watch creatinine and K given he is started on Bactrim sodium zirconium as needed to correct hyperkalemia Concur with current medical management Labs AM. Shall closely F/U Time Spent With Patient Time: Total time spent is greater than 50% in coordination of care (as documented) at patient's floor/unit and/or counseling patient: Progress Note: Quality Stroke Does the patient have a stroke diagnosis?: No
[2021-05-26 17:53] LABS: Glucose, Whole Blood 228 mg/dL (60-115)
--- NOTE | 2021-05-26 18:34 | PC.NURSE ---
MD PLACED NEW LEFT TLC. VERSED 3MG IVP ADMINISTERED PRIOR TO PROCEDURE. CORDIS REMOVED BY MD. OCCULSIVE DRESSING APPLIED. URINE SAMPLE COLLECTED. UNABLE TO COLLECT SPUTUM X 2 - NO INLINE SECRETIONS. UNABLE TO COLLECT CDIFF - NO BM AT THIS TIME. TMAX 101.1 AT START OF SHIFT AND TEMP HAS BEEN SLOWLY TRENDING DOWN. WILL CONTINUE TO MONITOR. Q2HR REPO, TOTAL BATH, HAIR SHAMPOOED, FREQUENT ORAL CARE, BARRIER CREAM APPLIED.
[2021-05-26] MEDS: Atorvastatin Calcium 20 MG TABLET PO (20:57)
[2021-05-26] MEDS: Insulin Glargine,Hum.rec.anlog 100 UNIT/ML 10 ML VIAL 24 UNIT SUBCUT (20:58)
[2021-05-26] MEDS: Midazolam HCl/PF 2 MG/2 ML VIAL IVPUSH (21:45)
[2021-05-27] VITALS (30 sets, daily range): BP systolic 90–142; BP diastolic 40–68; PULSE 65–91; RESP 20–35; TEMP 34–37.3; O2SAT 86–97; BMI 30.9
[2021-05-27 00:37] LABS: Glucose, Whole Blood 201 mg/dL (60-115)
[2021-05-27] MEDS: Sulfameth/Trimet 800/160/20 ML 20 ML ORAL.SUSP 40 ML PO ×5 (00:43→23:44)
[2021-05-27] MEDS: Insulin Lispro 100 UNIT/ML 3 ML VIAL SUBCUT ×5 (00:43→23:45)
[2021-05-27] MEDS: Heparin Sodium,Porcine 5,000 UNIT/ML VIAL 5000 UNIT SUBCUT ×3 (02:30→19:56)
[2021-05-27] MEDS: propofoL 1,000 MG/100 ML VIAL 16.92 MG IVCONT ×2 (02:30→05:54)
--- NOTE | 2021-05-27 02:59 | PC.NURSE ---
recieved patient in handoff. pt -4 rass sedation minimally arousable to stimuli. pupils are perrl. pt has slight edema on hands bilaterally and questionable truncal edema (+1). Pt received his medications. After rotating patient at approximately 2200 pt sats dipped into the 80s. Pt took some time but recovered to mid 90s. Pt has had good output in curry 60-70mls/hr. Skin has stage two on buttocks/coccyx which is bandaged with barrier cream around the area. Pt has been weaned down to 50% oxygen over the course of the night and has maintained sats in the mid 90s. Pt is on pressure control with R-16, Pressure- 22, peep of 10, 50% oxygen as of 0300.
[2021-05-27 05:37] LABS: Glucose, Whole Blood 162 mg/dL (60-115)
[2021-05-27 05:44] LABS: VBG Base Excess -1.7 mmol/L; VBG HCO3 23 mmol/L (22-26); VBG pCO2 42 mmHg; VBG pH 7.35 (7.32-7.43); VBG pO2 48 mmHg
[2021-05-27] MEDS: levoFLOXacin 250 MG TABLET PO (05:55)
[2021-05-27] MEDS: metroNIDAZOLE 500 MG TABLET PO ×3 (05:55→21:21)
[2021-05-27 06:21] LABS: Venous Blood Gas Refer to POC result
[2021-05-27 06:37] LABS: Hematocrit 25.5 % (42.0-52.0); Hemoglobin 7.8 g/dl (14.0-18.0); Mean Corpuscular HGB Conc 30.6 g/dl (31.0-36.0); Mean Corpuscular Hemoglobin 28.2 pg (27.0-33.0); Mean Corpuscular Volume 92.1 fL (80.0-98.0); Mean Platelet Volume 11.9 fL (9.4-12.4); NRBC Pct Auto 0.5 /100WBC (0.0-0.2); Platelet Count 252 X10*3/uL (160-400); Red Blood Count 2.77 X10*6/uL (4.60-5.80); Red Cell Distribution Width 15.4 % (11.0-16.0); White Blood Count 11.9 X10*3/uL (4.8-10.8)
[2021-05-27 06:44] LABS: Alanine Aminotransferase 38 U/L (0-40); Albumin Level 2.8 g/dL (3.5-5.0); Alkaline Phosphatase 43 U/L (39-117); Anion Gap 15 (12-20); Aspartate Amino Transferase 19 U/L (5-37); Bilirubin Total 0.4 mg/dL (0.0-1.0); Blood Urea Nitrogen 120 mg/dL (9-16); Calcium 8.4 mg/dL (8.4-10.2); Carbon Dioxide 22 mmol/L (22-29); Chloride 104 mmol/L (96-108); Creatinine Clr Calc Pharmacy 39.1; Estimated Glomerular Filt Rate 28; Glucose Random 166 mg/dL (60-115); Potassium 4.9 mmol/L (3.3-5.1); Sodium 136 mmol/L (135-145); Total Protein 5.5 g/dL (6.5-8.0)
--- NOTE | 2021-05-27 07:16 | PM.CCPN ---
Subjective Subjective Date of Service: 05/27/21 Interval History: 66-year-old male with COVID-19 pneumonitis and ARDS and acute hypoxic respiratory failure spending more than a month now in the hospital 2 weeks on the ventilator and were actually down to an FiO2 of 50% with improving tidal volumes in the face of the same airway pressure all indicating improving lung compliance and he has remained afebrile for the past 24 hours remaining on a come been a garcia of Levaquin and Bactrim cover him still for the possibility of Legionella or Pneumocystis the etc. because of the presence of steroids for greater than a month and and being diabetic with renal insufficiency Creatinine climbed again slightly from 2.2-2.3 nothing major and I doubt if this is an interstitial nephritis related to any of his drugs and apparently he is not making any diarrhea so the C diff still has not been performed but he remains on empiric metronidazole which again if there is no further spike and no diarrhea up probably discontinue in the next 24 hours Under was my exam abdomen is benign my did change his central line of 2 weeks duration to the left side in the face of the fever repeat blood cultures are pending but thus far no need for change and I am entertaining. Holding his propofol and giving him a sedation holiday potentially even with a a pressure supported mechanism Critical Care Time (minutes): 45 Physical Exam Vital Signs: Vital Signs: Last Vital Signs Temp 98.4 F 05/27/21 06:00 Pulse 73 05/27/21 07:00 Resp 30 H 05/27/21 07:00 BP 120/52 L 05/27/21 07:00 Pulse Ox 92 05/27/21 07:00 Oxygen Flow Rate 15 04/28/21 21:37 BMI result Body Mass Index 30.9 And afebrile and nonfocal neurologically Both cardiovascular and lung exam Arb are stable Abdomen is benign and still tolerating his fluids and is no elevation of liver liver function exam Skin intact except for a mild stage II coccyx with no surrounding cellulitis Objective Data Labs CBC & Chem 7: 05/27/21 05:40 05/27/21 05:40 Labs: Laboratory Results - last 24 hr 05/26/21 05/26/21 05/26/21 10:45 11:50 17:47 WBC RBC Hgb Hct MCV MCH MCHC RDW Plt Count MPV Immature Gran % (Auto) Neut % (Auto) Lymph % (Auto) [place] % (Auto) Eos % (Auto) Baso % (Auto) Lymph # (Auto) [place] # (Auto) Eos # (Auto) Baso # (Auto) Abs Immat Gran (auto) Absolute Neuts (auto) Absolute Nucleated RBC Nucleated RBC % (auto) VBG pH VBG pCO2 VBG pO2 VBG HCO3 VBG O2 Saturation VBG Base Excess Sodium Potassium Chloride Carbon Dioxide Anion Gap BUN Creatinine Estim Creat Clear Calc Estimated GFR POC Glucose 230 H 228 H Random Glucose Calcium Total Bilirubin AST ALT Alkaline Phosphatase Total Protein Albumin Urine Color YELLOW Urine Appearance CLEAR Urine pH 5.5 Ur Specific [place] 1.020 Urine Protein NEG Urine Glucose (UA) NEG Urine Ketones NEG Urine Blood NEG Urine Nitrite NEG Ur Leukocyte Esterase NEG Urine RBC 0 Urine WBC 0-2 Ur Squamous Epith Cells NONE Amorphous Sediment 1+ Urine Bacteria NONE 05/27/21 05/27/21 05/27/21 00:31 05:29 05:38 WBC RBC Hgb Hct MCV MCH MCHC RDW Plt Count MPV Immature Gran % (Auto) Neut % (Auto) Lymph % (Auto) [place] % (Auto) Eos % (Auto) Baso % (Auto) Lymph # (Auto) [place] # (Auto) Eos # (Auto) Baso # (Auto) Abs Immat Gran (auto) Absolute Neuts (auto) Absolute Nucleated RBC Nucleated RBC % (auto) VBG pH 7.35 VBG pCO2 42 VBG pO2 48 VBG HCO3 23 VBG O2 Saturation 76.0 VBG Base Excess -1.7 Sodium Potassium Chloride Carbon Dioxide Anion Gap BUN Creatinine Estim Creat Clear Calc Estimated GFR POC Glucose 201 H 162 H Random Glucose Calcium Total Bilirubin AST ALT Alkaline Phosphatase Total Protein Albumin Urine Color Urine Appearance Urine pH Ur Specific [place] Urine Protein Urine Glucose (UA) Urine Ketones Urine Blood Urine Nitrite Ur Leukocyte Esterase Urine RBC Urine WBC Ur Squamous Epith Cells Amorphous Sediment Urine Bacteria 05/27/21 05/27/21 05:40 05:40 WBC 11.9 H RBC 2.77 L Hgb 7.8 L Hct 25.5 L MCV 92.1 MCH 28.2 MCHC 30.6 L RDW 15.4 Plt Count 252 MPV 11.9 Immature Gran % (Auto) Cancelled Neut % (Auto) Cancelled Lymph % (Auto) Cancelled [place] % (Auto) Cancelled Eos % (Auto) Cancelled Baso % (Auto) Cancelled Lymph # (Auto) Cancelled [place] # (Auto) Cancelled Eos # (Auto) Cancelled Baso # (Auto) Cancelled Abs Immat Gran (auto) Cancelled Absolute Neuts (auto) Cancelled Absolute Nucleated RBC 0.060 H Nucleated RBC % (auto) 0.5 H VBG pH VBG pCO2 VBG pO2 VBG HCO3 VBG O2 Saturation VBG Base Excess Sodium 136 Potassium 4.9 Chloride 104 Carbon Dioxide 22 Anion Gap 15 BUN 120 H Creatinine 2.31 H Estim Creat Clear Calc 39.1 Estimated GFR 28 POC Glucose Random Glucose 166 H Calcium 8.4 D Total Bilirubin 0.4 AST 19 ALT 38 Alkaline Phosphatase 43 Total Protein 5.5 L Albumin 2.8 L Urine Color Urine Appearance Urine pH Ur Specific [place] Urine Protein Urine Glucose (UA) Urine Ketones Urine Blood Urine Nitrite Ur Leukocyte Esterase Urine RBC Urine WBC Ur Squamous Epith Cells Amorphous Sediment Urine Bacteria Microbiology Microbiology Results: Microbiology 05/22/21 11:32 Urine Catheterized - Camacho Catheter Urine Culture - Final Serratia marcescens 05/19/21 16:47 Blood - Venous Blood Culture - Final No growth after 5 days. 05/19/21 16:49 Blood - Venous Blood Culture - Final No growth after 5 days. 05/22/21 15:44 Sputum - Suctioned Gram Stain - Final 05/22/21 15:44 Sputum - Suctioned Sputum Culture - Final 05/15/21 08:25 Blood - Venous Blood Culture - Final No growth after 5 days. 05/15/21 08:25 Blood - Venous Blood Culture - Final No growth after 5 days. 05/17/21 15:20 Sputum - Suctioned Gram Stain - Final 05/17/21 15:20 Sputum - Suctioned Sputum Culture - Final 05/13/21 Unknown Urine Catheterized - Camacho Catheter Urine Culture - Final Serratia marcescens 04/28/21 22:17 Blood - Venous Blood Culture - Final No growth after 5 days. 04/28/21 22:17 Blood - Venous Blood Culture - Final No growth after 5 days. Progress Note: A&P Assessment and plan (1) Diabetes: Status: Acute (2) AV block: Status: Acute (3) CHF (congestive heart failure): Status: Acute (4) Type 2 diabetes mellitus: Status: Acute (5) JÚNIOR (acute kidney injury): Status: Acute (6) SARS-CoV-2 positive: Status: Acute (7) ARDS (adult respiratory distress syndrome): Status: Acute (8) CKD (chronic kidney disease) stage 3, GFR 30-59 ml/min: Status: Acute (9) COVID-19 determined by clinical diagnostic criteria: Status: Acute (10) Mobitz (type) I (Wenckebach's) atrioventricular block: Status: Acute (11) Elevated troponin: Status: Acute (12) Acute kidney injury superimposed on CKD: Status: Acute (13) Acute hypoxemic respiratory failure due to COVID-19: Status: Acute (14) Leg swelling: Status: Acute (15) Anemia: Status: Acute Assessment and Plan: So at this point were going to give him a sedation holiday and if cognitive function is appropriate possibly attempt pressure support I do not believe were going to be able to wean today but will start the process keep the antibiotics as above until we have an negative PCR and antibody exam ruling out secondary infection Quality Stroke Does the patient have a stroke diagnosis?: No VTE Prior VTE?: No VTE Risk Level:: Medical - moderate - high VTE Device Contraindication: Treatment Not Indicated VTE Drug Contraindication: N/A - Med Ordered
[2021-05-27] MEDS: predniSONE 20 MG TABLET PO (07:23)
[2021-05-27] MEDS: 0.9 % Sodium Chloride Flush 3 ML SYRINGE IVFLUSH ×6 (07:23→23:45)
[2021-05-27] MEDS: Famotidine/PF 20 MG/2 ML VIAL IVPUSH (07:23)
[2021-05-27] MEDS: Aspirin 81 MG TAB.CHEW PO (07:23)
[2021-05-27] MEDS: Chlorhexidine Gluc Oral Rinse 15 ML MOUTHWASH BUCCAL ×3 (07:24→21:20)
[2021-05-27] MEDS: Nystatin Powder 15 GM BOTTLE 1 APPL TOPICAL ×3 (07:25→20:30)
[2021-05-27 07:26] LABS: Band Neutrophils Percent 10 % (3-5); Basophils Abs Manual 0.2 X10*3/uL (0.0-0.2); Basophils Percent Manual 2 % (0-2); Lymphocytes Absolute Manual 0.4 X10*3/uL (1.2-4.9); Lymphocytes Percent Manual 3 % (20-40); Metamyelocytes Absolute 0.2 X10*3/uL; Metamyelocytes Percent 2 %; Monocytes Absolute Manual 0.4 X10*3/uL (0.1-1.2); Monocytes Percent Manual 3 % (2-11); Neutrophils Absolute Manual 10.7 X10*3/uL (2.0-8.3); Neutrophils Percent Manual 80 % (45-73)
[2021-05-27 07:29] LABS: Acanthocytes 1+ (0-2) /OIF; Basophilic Stippling 1+ (0-2) /OIF; Macrocytosis 1+ (5-14) /OIF; Microcytosis 1+ (5-14) /OIF; Ovalocytes 1+ (5-14) /OIF; RBC Morphology NOTED; Schistocytes 1+ (0-2) /OIF; Tear Drop Cells 1+ (0-2) /OIF
[2021-05-27 07:30] LABS: Platelet Estimate NORMAL (NORMAL); Platelet Morphology Comment NORMAL; Polychromasia 2+ (3-5) /OIF
[2021-05-27] MEDS: Sodium Chloride 0.45 % 1,000 ML 50 ML IVCONT (10:31)
[2021-05-27] MEDS: dexmedeTOMIDidine HCL/NS 400 MCG/100 ML INFUS..BTL 25.9 MCG IVCONT ×3 (10:32→17:11)
--- NOTE | 2021-05-27 10:41 | PC.NURSE ---
Addendum entered by Malu Lanier RN 05/27/21 17:43: GASTRIC CONTENT SENT FOR OCCULT TEST. SCHEDULED REGLAN 5 MG IVP 6 HR - FIRST DOSE ADMINISTERED. TUBE FEEDS REMAIN OFF. NEW SKIN PICTURES OBTAINED AND SENT TO WOUND RN FOR STAGING AND TREATMENT. SEE CHART AND WOUND ASSESSMENT DOCUMENTATION. Addendum entered by Malu Lanier RN 05/27/21 13:04: 0800 TUBE FEED ASSESSMENT RESIDUAL OF 140 ML, DARK BROWN/COFFEE GROUND IN APPEARANCE. MD CALLED BEDSIDE AND NOTIFIED. 1200 TUBE FEED ASSESSMENT RESIDUAL OF 200 ML, REMAINS DARK BROWN/COFFEE GROUND IN APPEARANCE. MD NOTIFIED AND TUBE FEEDS TO BE HELD. Original Note: SEDATION VACATION PER MD. PROPOFOL TURNED OFF AT 0730. PT ATTEMPTING TO OPEN EYES, LIGHT MOVEMENTS TO HANDS. DOES NOT FOLLOW COMMANDS. INCREASED WOB NOTED, RR 30-35, 02 DESAT TO 86% - PER MD VENT SETTINGS ADJUSTED TO AC 16/500/8/50% AT 0935. SEDATION VACATION ENDED AT 1035. PRECEDEX GTT STARTED AT 1035 - RUNNING AT 1 MCG/KG/HR. FI02 INCREASEDTO 55% TO MAINTAIN 02 > 88% PER MD. WILL CONTINUE TO MONITOR.
[2021-05-27 11:59] LABS: Glucose, Whole Blood 206 mg/dL (60-115)
--- NOTE | 2021-05-27 15:53 | PM.PNNEP ---
Subjective Subjective Date of Service: 05/27/21 Principal diagnosis: COVID, JÚNIOR, CKD Interval history: Events noted; All recent data reviewed; D/W ICU Attending Physical Exam Vital Signs: Vital Signs: Last Vital Signs Temp 99.2 F 05/27/21 11:00 Pulse 66 05/27/21 15:00 Resp 24 H 05/27/21 15:00 BP 124/65 05/27/21 15:00 Pulse Ox 95 05/27/21 15:00 Oxygen Flow Rate 15 04/28/21 21:37 BMI result Body Mass Index 30.9 Const: General: comfortable Eyes: EOM: EOMs intact bilaterally Neck: Neck: Yes supple Resp: Auscultation: diminished lung sounds Cardio: Rate: regular rate GI: Palpation (GI): Soft to palpation Neuro: Other: Sedated Objective Data Labs CBC & Chem 7: 05/27/21 05:40 05/27/21 05:40 Labs: Laboratory Results - last 24 hr 05/26/21 05/27/21 05/27/21 17:47 00:31 05:29 WBC RBC Hgb Hct MCV MCH MCHC RDW Plt Count MPV Immature Gran % (Auto) Neut % (Auto) Lymph % (Auto) [place] % (Auto) Eos % (Auto) Baso % (Auto) Lymph # (Auto) [place] # (Auto) Eos # (Auto) Baso # (Auto) Abs Immat Gran (auto) Absolute Neuts (auto) Absolute Nucleated RBC Nucleated RBC % (auto) Neutrophils % (Manual) Band Neutrophils % Lymphocytes % (Manual) Monocytes % (Manual) Basophils % (Manual) Metamyelocytes % Abs Neuts (Manual) Lymphocytes # (Manual) Monocytes # (Manual) Basophils # (Manual) Metamyelocytes # Platelet Estimate Plt Morphology Comment RBC Morphology Polychromasia Basophilic Stippling Microcytosis Macrocytosis Tear Drop Cells Ovalocytes Acanthocytes (Spur) Schistocytes VBG pH VBG pCO2 VBG pO2 VBG HCO3 VBG O2 Saturation VBG Base Excess Sodium Potassium Chloride Carbon Dioxide Anion Gap BUN Creatinine Estim Creat Clear Calc Estimated GFR POC Glucose 228 H 201 H 162 H Random Glucose Calcium Total Bilirubin AST ALT Alkaline Phosphatase Total Protein Albumin 05/27/21 05/27/21 05/27/21 05:38 05:40 05:40 WBC 11.9 H RBC 2.77 L Hgb 7.8 L Hct 25.5 L MCV 92.1 MCH 28.2 MCHC 30.6 L RDW 15.4 Plt Count 252 MPV 11.9 Immature Gran % (Auto) Cancelled Neut % (Auto) Cancelled Lymph % (Auto) Cancelled [place] % (Auto) Cancelled Eos % (Auto) Cancelled Baso % (Auto) Cancelled Lymph # (Auto) Cancelled [place] # (Auto) Cancelled Eos # (Auto) Cancelled Baso # (Auto) Cancelled Abs Immat Gran (auto) Cancelled Absolute Neuts (auto) Cancelled Absolute Nucleated RBC 0.060 H Nucleated RBC % (auto) 0.5 H Neutrophils % (Manual) 80 H Band Neutrophils % 10 H Lymphocytes % (Manual) 3 L Monocytes % (Manual) 3 Basophils % (Manual) 2 Metamyelocytes % 2 Abs Neuts (Manual) 10.7 H Lymphocytes # (Manual) 0.4 L Monocytes # (Manual) 0.4 Basophils # (Manual) 0.2 Metamyelocytes # 0.2 Platelet Estimate NORMAL Plt Morphology Comment NORMAL RBC Morphology NOTED Polychromasia 2+ (3-5) Basophilic Stippling 1+ (0-2) Microcytosis 1+ (5-14) Macrocytosis 1+ (5-14) Tear Drop Cells 1+ (0-2) Ovalocytes 1+ (5-14) Acanthocytes (Spur) 1+ (0-2) Schistocytes 1+ (0-2) VBG pH 7.35 VBG pCO2 42 VBG pO2 48 VBG HCO3 23 VBG O2 Saturation 76.0 VBG Base Excess -1.7 Sodium 136 Potassium 4.9 Chloride 104 Carbon Dioxide 22 Anion Gap 15 BUN 120 H Creatinine 2.31 H Estim Creat Clear Calc 39.1 Estimated GFR 28 POC Glucose Random Glucose 166 H Calcium 8.4 D Total Bilirubin 0.4 AST 19 ALT 38 Alkaline Phosphatase 43 Total Protein 5.5 L Albumin 2.8 L 05/27/21 11:55 WBC RBC Hgb Hct MCV MCH MCHC RDW Plt Count MPV Immature Gran % (Auto) Neut % (Auto) Lymph % (Auto) [place] % (Auto) Eos % (Auto) Baso % (Auto) Lymph # (Auto) [place] # (Auto) Eos # (Auto) Baso # (Auto) Abs Immat Gran (auto) Absolute Neuts (auto) Absolute Nucleated RBC Nucleated RBC % (auto) Neutrophils % (Manual) Band Neutrophils % Lymphocytes % (Manual) Monocytes % (Manual) Basophils % (Manual) Metamyelocytes % Abs Neuts (Manual) Lymphocytes # (Manual) Monocytes # (Manual) Basophils # (Manual) Metamyelocytes # Platelet Estimate Plt Morphology Comment RBC Morphology Polychromasia Basophilic Stippling Microcytosis Macrocytosis Tear Drop Cells Ovalocytes Acanthocytes (Spur) Schistocytes VBG pH VBG pCO2 VBG pO2 VBG HCO3 VBG O2 Saturation VBG Base Excess Sodium Potassium Chloride Carbon Dioxide Anion Gap BUN Creatinine Estim Creat Clear Calc Estimated GFR POC Glucose 206 H Random Glucose Calcium Total Bilirubin AST ALT Alkaline Phosphatase Total Protein Albumin Microbiology Microbiology Results: Microbiology 05/26/21 06:44 Blood - Venous Blood Culture - Preliminary No growth after 24 hours. 05/26/21 06:44 Blood - Venous Blood Culture - Preliminary No growth after 24 hours. 05/22/21 11:32 Urine Catheterized - Camacho Catheter Urine Culture - Final Serratia marcescens 05/19/21 16:47 Blood - Venous Blood Culture - Final No growth after 5 days. 05/19/21 16:49 Blood - Venous Blood Culture - Final No growth after 5 days. 05/22/21 15:44 Sputum - Suctioned Gram Stain - Final 05/22/21 15:44 Sputum - Suctioned Sputum Culture - Final 05/15/21 08:25 Blood - Venous Blood Culture - Final No growth after 5 days. 05/15/21 08:25 Blood - Venous Blood Culture - Final No growth after 5 days. 05/17/21 15:20 Sputum - Suctioned Gram Stain - Final 05/17/21 15:20 Sputum - Suctioned Sputum Culture - Final 05/13/21 Unknown Urine Catheterized - Camacho Catheter Urine Culture - Final Serratia marcescens 04/28/21 22:17 Blood - Venous Blood Culture - Final No growth after 5 days. 04/28/21 22:17 Blood - Venous Blood Culture - Final No growth after 5 days. Procedures Date of Service Date of Service: 05/27/21 Assessment & Plan Assessment and plan (1) Acute kidney injury superimposed on CKD: Status: Acute Assessment and Plan: JÚNIOR due to compromised kidney perfusion in the setting of SARS COV 2 known CKD 3 due to DM/HTN no indication for dialysis Needs to watch creatinine and K given he was started on Bactrim sodium zirconium as needed to correct hyperkalemia Concur with current medical management Labs AM. Shall closely F/U Time Spent With Patient Time: Total time spent is greater than 50% in coordination of care (as documented) at patient's floor/unit and/or counseling patient: Progress Note: Quality Stroke Does the patient have a stroke diagnosis?: No
[2021-05-27] MEDS: Metoclopramide HCl 10 MG/2 ML VIAL 5 MG IVPUSH ×2 (17:10→21:20)
[2021-05-27 17:32] LABS: Glucose, Whole Blood 164 mg/dL (60-115)
[2021-05-27 17:41] LABS: GASOB Int Neg Ctl Valid YES; GASOB Int Pos Ctl Valid YES; Occult Blood Gastric NEG (NEG)
[2021-05-27] MEDS: dexmedeTOMIDidine HCL/NS 400 MCG/100 ML INFUS..BTL 31.08 MCG IVCONT ×2 (19:56→22:59)
[2021-05-27] MEDS: Insulin Glargine,Hum.rec.anlog 100 UNIT/ML 10 ML VIAL 24 UNIT SUBCUT (21:20)
[2021-05-27 22:01] LABS: Glucose, Whole Blood 129 mg/dL (60-115)
[2021-05-27 23:11] LABS: Glucose, Whole Blood 129 mg/dL (60-115)
[2021-05-28] VITALS (33 sets, daily range): BP systolic 84–136; BP diastolic 39–87; PULSE 42–95; RESP 21–30; TEMP 34.9–37.2; O2SAT 89–98; BMI 30.8
[2021-05-28] MEDS: dexmedeTOMIDidine HCL/NS 400 MCG/100 ML INFUS..BTL 25.9 MCG IVCONT ×2 (01:50→19:33)
--- NOTE | 2021-05-28 02:18 | PC.NURSE ---
received patient. upon initial assessment VSS were stable. Pt was rolled to observe skin, wounds are as noted. Skin protectant was applied. Pt LS dim throughout. Pt had high peak pressures in the 40s on the vent. Pt was repositioned and peak pressures dropped into the high 30s. Pt appeared more comfortable. Pt has a 7.5 tube @23cm at the lip. pt Is on AC R-16, V500, O2 50%, Peep of 8. Pt has a first degree block. Pt has pitting edema on hands (+3) with non-pitting edema on the arms, and +1 truncal edema. no edema in the lower ext. GI pt has had high residuals with dark bile, guac-neg. Last residual at 0200 was approximately 340mls. Pt was started on nepro @10mls/hr at roughly 2130 and stopped at midnight due to high residuals per order. Gu pt has a curry with good output (approximately 60-70mls/hr). Neurologically pt is arousable with physical stimuli. Pt did open eyes and blink when being rotated, and checking for residual. Pt does have occasional movements of the hands and head but is otherwise sedated. Pt pupils are PERRL but sluggish and there is some scleredma noted bilaterally. Pt sedated with precedex. Pt has been rotated several times through the night with attention to his O2 sat. Pt has been positionally dependent for O2 sat with it worsening severely in certain positioning.
[2021-05-28] MEDS: Heparin Sodium,Porcine 5,000 UNIT/ML VIAL 5000 UNIT SUBCUT ×3 (03:34→17:57)
[2021-05-28] MEDS: Metoclopramide HCl 10 MG/2 ML VIAL 5 MG IVPUSH ×4 (03:35→21:02)
[2021-05-28] MEDS: dexmedeTOMIDidine HCL/NS 400 MCG/100 ML INFUS..BTL 31.08 MCG IVCONT ×3 (05:04→15:45)
[2021-05-28 05:12] LABS: Glucose, Whole Blood 136 mg/dL (60-115)
[2021-05-28] MEDS: levoFLOXacin 250 MG TABLET PO (05:37)
[2021-05-28] MEDS: Sulfameth/Trimet 800/160/20 ML 20 ML ORAL.SUSP 40 ML PO (05:37)
[2021-05-28] MEDS: Insulin Lispro 100 UNIT/ML 3 ML VIAL SUBCUT ×3 (05:37→17:57)
[2021-05-28] MEDS: Sodium Chloride 0.45 % 1,000 ML 50 ML IVCONT ×2 (05:37→22:54)
[2021-05-28] MEDS: metroNIDAZOLE 500 MG TABLET PO (05:37)
[2021-05-28 05:57] LABS: VBG Base Excess -3.1 mmol/L; VBG HCO3 21 mmol/L (22-26); VBG pCO2 34 mmHg; VBG pH 7.39 (7.32-7.43); VBG pO2 51 mmHg
[2021-05-28 06:37] LABS: Mean Corpuscular HGB Conc 30.8 g/dl (31.0-36.0); Mean Corpuscular Hemoglobin 27.9 pg (27.0-33.0); Mean Corpuscular Volume 90.6 fL (80.0-98.0); Mean Platelet Volume 12.1 fL (9.4-12.4); NRBC Pct Auto 0.3 /100WBC (0.0-0.2); Platelet Count 237 X10*3/uL (160-400); Red Blood Count 2.87 X10*6/uL (4.60-5.80); White Blood Count 10.4 X10*3/uL (4.8-10.8)
[2021-05-28 06:41] LABS: Venous Blood Gas Refer to POC result
[2021-05-28 07:16] LABS: Alanine Aminotransferase 33 U/L (0-40); Albumin Level 2.8 g/dL (3.5-5.0); Alkaline Phosphatase 46 U/L (39-117); Anion Gap 13 (12-20); Aspartate Amino Transferase 20 U/L (5-37); Bilirubin Total 0.4 mg/dL (0.0-1.0); Blood Urea Nitrogen 123 mg/dL (9-16); Calcium 8.3 mg/dL (8.4-10.2); Carbon Dioxide 21 mmol/L (22-29); Chloride 111 mmol/L (96-108); Creatinine Clr Calc Pharmacy 43.8; Estimated Glomerular Filt Rate 32; Glucose Random 138 mg/dL (60-115); Sodium 140 mmol/L (135-145); Total Protein 5.6 g/dL (6.5-8.0)
[2021-05-28 07:18] LABS: Band Neutrophils Percent 11 % (3-5); Lymphocytes Absolute Manual 0.4 X10*3/uL (1.2-4.9); Lymphocytes Percent Manual 4 % (20-40); Metamyelocytes Absolute 0.1 X10*3/uL; Metamyelocytes Percent 1 %; Monocytes Absolute Manual 0.3 X10*3/uL (0.1-1.2); Monocytes Percent Manual 3 % (2-11); Neutrophils Absolute Manual 9.6 X10*3/uL (2.0-8.3); Neutrophils Percent Manual 81 % (45-73)
[2021-05-28 07:20] LABS: Macrocytosis 1+ (5-14) /OIF; Microcytosis 1+ (5-14) /OIF; RBC Morphology NOTED
[2021-05-28 07:21] LABS: Acanthocytes 1+ (0-2) /OIF; Basophilic Stippling 1+ (0-2) /OIF; Hypochromasia 1+ (5-14) /OIF; Ovalocytes 1+ (5-14) /OIF; Platelet Estimate NORMAL (NORMAL); Platelet Morphology Comment NORMAL; Polychromasia 1+ (0-2) /OIF; Schistocytes 1+ (0-2) /OIF; Smudge Cells PRESENT; Tear Drop Cells 1+ (0-2) /OIF
[2021-05-28] MEDS: Famotidine/PF 20 MG/2 ML VIAL IVPUSH (08:29)
[2021-05-28] MEDS: 0.9 % Sodium Chloride Flush 3 ML SYRINGE IVFLUSH ×6 (08:29→23:35)
[2021-05-28] MEDS: Chlorhexidine Gluc Oral Rinse 15 ML MOUTHWASH BUCCAL ×3 (08:29→21:00)
[2021-05-28] MEDS: predniSONE 5 MG TABLET 15 MG PO (08:29)
[2021-05-28] MEDS: Nystatin Powder 15 GM BOTTLE 1 APPL TOPICAL ×3 (08:55→21:00)
--- NOTE | 2021-05-28 09:09 | PC.NURSE ---
Addendum entered by Malu Lanier RN 05/28/21 19:55: ?ETCO2 NUMBERS ON MONITORS. LOW AND FREQUENT FLUCTUATIONS IN NUMBERS 6 - 13. AWARE AND NOT FURTHER ORDERS AT THIS TIME. Addendum entered by Malu Lanier RN 05/28/21 12:56: MD BEDSIDE TO ATTEMPT PSV WITH PT. PT DID NOT TOLERATE VENT CHANGES. INCREASED WOB, ACCESSORY MUSCLES USED, ETCO2 DROPPED LOW 11 WITH MD AND RT BEDSIDE. PER MD END SEDATION VACATION. ADMINISTER VERSED 4MG IVP X 1 AND RESTART PRECEDEX GTT AT 1230. WILL CONTINUE TO MONITOR. PTS CALLED AND UPDATE BY THIS RN. Original Note: SEDATION TURNED OFF PER MD AT 0830. PT AWAKE, RESPONDS TO NAME, TRACKING, FOLLOWING SIMPLE COMMANDS, NODS YES OR NO TO SIMPLE QUESTIONS. DENIES PAIN. SEVERELY WEAK BILATERAL HAND PRINTING MANAGER, WIGGLES TOES. ABLE TO LIFT BILATERAL ARMS SLIGHTLY WITHOUT ASSISTANCE, UNABLE TO LIFT LEGS. MD NOTIFIED. WILL CONTINUE TO MONITOR.
--- NOTE | 2021-05-28 10:18 | P.PNNP_ITS ---
Subjective Subjective Date of Service: 05/28/21 Principal diagnosis: COVID, JÚNIOR, CKD Interval history: Events noted; All recent data reviewed; D/W ICU Attending Physical Exam Vital Signs: Vital Signs: Last Vital Signs Temp 98.8 F 05/28/21 08:00 Pulse 92 05/28/21 10:00 Resp 28 H 05/28/21 10:00 BP 136/60 05/28/21 10:00 Pulse Ox 90 L 05/28/21 10:00 Oxygen Flow Rate 15 04/28/21 21:37 BMI result Body Mass Index 30.8 Const: Other: Intubated Neck: Neck: Yes supple Resp: Auscultation: diminished lung sounds Cardio: Rate: regular rate GI: Palpation (GI): Soft to palpation Neuro: Other: Sedated Objective Data Labs CBC & Chem 7: 05/28/21 05:48 05/28/21 06:47 Labs: Laboratory Results - last 24 hr 05/27/21 05/27/21 05/27/21 11:55 17:22 17:28 WBC RBC Hgb Hct MCV MCH MCHC RDW Plt Count MPV Immature Gran % (Auto) Neut % (Auto) Lymph % (Auto) [place] % (Auto) Eos % (Auto) Baso % (Auto) Lymph # (Auto) [place] # (Auto) Eos # (Auto) Baso # (Auto) Abs Immat Gran (auto) Absolute Neuts (auto) Absolute Nucleated RBC Nucleated RBC % (auto) Neutrophils % (Manual) Band Neutrophils % Lymphocytes % (Manual) Monocytes % (Manual) Metamyelocytes % Abs Neuts (Manual) Lymphocytes # (Manual) Monocytes # (Manual) Metamyelocytes # Smudge Cells Platelet Estimate Plt Morphology Comment RBC Morphology Polychromasia Hypochromasia Basophilic Stippling Microcytosis Macrocytosis Tear Drop Cells Ovalocytes Acanthocytes (Spur) Schistocytes VBG pH VBG pCO2 VBG pO2 VBG HCO3 VBG O2 Saturation VBG Base Excess Sodium Potassium Chloride Carbon Dioxide Anion Gap BUN Creatinine Estim Creat Clear Calc Estimated GFR POC Glucose 206 H 164 H Random Glucose Calcium Total Bilirubin AST ALT Alkaline Phosphatase Total Protein Albumin Gastric Occult Blood NEG 05/27/21 05/27/21 05/28/21 21:37 23:04 05:05 WBC RBC Hgb Hct MCV MCH MCHC RDW Plt Count MPV Immature Gran % (Auto) Neut % (Auto) Lymph % (Auto) [place] % (Auto) Eos % (Auto) Baso % (Auto) Lymph # (Auto) [place] # (Auto) Eos # (Auto) Baso # (Auto) Abs Immat Gran (auto) Absolute Neuts (auto) Absolute Nucleated RBC Nucleated RBC % (auto) Neutrophils % (Manual) Band Neutrophils % Lymphocytes % (Manual) Monocytes % (Manual) Metamyelocytes % Abs Neuts (Manual) Lymphocytes # (Manual) Monocytes # (Manual) Metamyelocytes # [place] Cells Platelet Estimate Plt Morphology Comment RBC Morphology Polychromasia Hypochromasia Basophilic Stippling Microcytosis Macrocytosis Tear Drop Cells Ovalocytes Acanthocytes (Spur) Schistocytes VBG pH VBG pCO2 VBG pO2 VBG HCO3 VBG O2 Saturation VBG Base Excess Sodium Potassium Chloride Carbon Dioxide Anion Gap BUN Creatinine Estim Creat Clear Calc Estimated GFR POC Glucose 129 H 129 H 136 H Random Glucose Calcium Total Bilirubin AST ALT Alkaline Phosphatase Total Protein Albumin Gastric Occult Blood 05/28/21 05/28/21 05/28/21 05:48 05:49 06:47 WBC 10.4 RBC 2.87 L Hgb 8.0 L Hct 26.0 L MCV 90.6 MCH 27.9 MCHC 30.8 L RDW 16.0 Plt Count 237 MPV 12.1 Immature Gran % (Auto) Cancelled Neut % (Auto) Cancelled Lymph % (Auto) Cancelled [place] % (Auto) Cancelled Eos % (Auto) Cancelled Baso % (Auto) Cancelled Lymph # (Auto) Cancelled [place] # (Auto) Cancelled Eos # (Auto) Cancelled Baso # (Auto) Cancelled Abs Immat Gran (auto) Cancelled Absolute Neuts (auto) Cancelled Absolute Nucleated RBC 0.030 H Nucleated RBC % (auto) 0.3 H Neutrophils % (Manual) 81 H Band Neutrophils % 11 H Lymphocytes % (Manual) 4 L Monocytes % (Manual) 3 Metamyelocytes % 1 Abs Neuts (Manual) 9.6 H Lymphocytes # (Manual) 0.4 L Monocytes # (Manual) 0.3 Metamyelocytes # 0.1 Smudge Cells PRESENT Platelet Estimate NORMAL Plt Morphology Comment NORMAL RBC Morphology NOTED Polychromasia 1+ (0-2) Hypochromasia 1+ (5-14) Basophilic Stippling 1+ (0-2) Microcytosis 1+ (5-14) Macrocytosis 1+ (5-14) Tear Drop Cells 1+ (0-2) Ovalocytes 1+ (5-14) Acanthocytes (Spur) 1+ (0-2) Schistocytes 1+ (0-2) VBG pH 7.39 VBG pCO2 34 VBG pO2 51 VBG HCO3 21 L VBG O2 Saturation 79.0 VBG Base Excess -3.1 Sodium 140 Potassium 5.0 Chloride 111 H Carbon Dioxide 21 L Anion Gap 13 BUN 123 H Creatinine 2.06 H Estim Creat Clear Calc 43.8 Estimated GFR 32 POC Glucose Random Glucose 138 H Calcium 8.3 L Total Bilirubin 0.4 AST 20 ALT 33 Alkaline Phosphatase 46 Total Protein 5.6 L Albumin 2.8 L Gastric Occult Blood Microbiology Microbiology Results: Microbiology 05/26/21 06:44 Blood - Venous Blood Culture - Preliminary No growth after 48 hours. 05/26/21 06:44 Blood - Venous Blood Culture - Preliminary No growth after 48 hours. 05/22/21 11:32 Urine Catheterized - Camacho Catheter Urine Culture - Final Serratia marcescens 05/19/21 16:47 Blood - Venous Blood Culture - Final No growth after 5 days. 05/19/21 16:49 Blood - Venous Blood Culture - Final No growth after 5 days. 05/22/21 15:44 Sputum - Suctioned Gram Stain - Final 05/22/21 15:44 Sputum - Suctioned Sputum Culture - Final 05/15/21 08:25 Blood - Venous Blood Culture - Final No growth after 5 days. 05/15/21 08:25 Blood - Venous Blood Culture - Final No growth after 5 days. 05/17/21 15:20 Sputum - Suctioned Gram Stain - Final 05/17/21 15:20 Sputum - Suctioned Sputum Culture - Final 05/13/21 Unknown Urine Catheterized - Camacho Catheter Urine Culture - Final Serratia marcescens 04/28/21 22:17 Blood - Venous Blood Culture - Final No growth after 5 days. 04/28/21 22:17 Blood - Venous Blood Culture - Final No growth after 5 days. Procedures Date of Service Date of Service: 05/28/21 Assessment & Plan Assessment and plan (1) JÚNIOR (acute kidney injury): Status: Acute Assessment and Plan: JÚNIOR due to compromised kidney perfusion in the setting of SARS COV 2 known CKD 3 due to DM/HTN no indication for dialysis Needs to watch creatinine and K given he was started on Bactrim sodium zirconium as needed to correct hyperkalemia Concur with current medical management Labs AM. Shall closely F/U Time Spent With Patient Time: Total time spent is greater than 50% in coordination of care (as docum ented) at patient's floor/unit and/or counseling patient: Progress Note: Quality Stroke Does the patient have a stroke diagnosis?: No
[2021-05-28 12:25] LABS: Glucose, Whole Blood 148 mg/dL (60-115)
[2021-05-28] MEDS: Midazolam HCl/PF 2 MG/2 ML VIAL 4 MG IVPUSH (12:25)
--- NOTE | 2021-05-28 15:19 | PM.CCPN ---
Subjective Subjective Date of Service: 05/28/21 Interval History: this 66-year-old diabetic spent more than a month in the hospital and on steroids with COVID-19 pneumonitis and ARDS and hypoxemic respiratory failure now 15 days intubated and again given a sedation holiday he did awake with cognitive function he nodded that he understood he had a pressure support trial with excellent in tidal volumes but his work of breathing went up tremendously and with that he became increasingly tachycardic and his end-tidal CO2 dropped and had enough that was purely hyperventilatory or if it was just an indication of some compromised cardiac output and I did his bedside echo interestingly LV function RV function looked very normal and appropriately hyperdynamic but is aortic valve I got very good visualization of it whereby the official echo people did not very heavily calcified very reduced opening and I do get a peak jet of about 4 m/sec disc is me an approximate valve area of 1 sq cm which would be in the severe but noncritical range however again indexed against his BSA it comes out the 0.45 cm2 per meter squared and that does fall into the critical range and that may very well be precipitating some of his failure to wean labs look good including slight improvement in his renal insufficiency and he still remains as of this morning on an empiric Bactrim and Levaquin with the Levaquin also cross covering for the Serratia marcescens urinary tract infection eventually I discontinued both apparently did no samples are ever sent in O2 look at the sputum and all the PCR studies in sputum culture etc. all apparently never sent at this point remaining consistently afebrile and with no significant sputum production and with no significant stool production I discontinued all antibiotics except the Levaquin which is there for the Serratia urinary tract infectio n I recent dated him and rested him and on his 55% FiO2 is oxygen saturations did come up to 95% heart rate came down significantly and he still has the evidence of sick sinus in his case it is 1121 conducting there is a profound first-degree block and now increasingly rare episodes of Mobitz 1 second-degree AV block but once he was rested his heart rate came down into the high 50s Critical Care Time (minutes): 45 Physical Exam Vital Signs: Vital Signs: Last Vital Signs Temp 98.3 F 05/28/21 12:00 Pulse 58 05/28/21 15:00 Resp 25 H 05/28/21 15:00 BP 103/55 L 05/28/21 15:00 Pulse Ox 95 05/28/21 15:00 Oxygen Flow Rate 15 04/28/21 21:37 BMI result Body Mass Index 30.8 he regain cognitive function lungs with bilateral diminished breath sounds abdomen soft and nontender no organomegaly bedside cardiac exam shows preserved LV and RV systolic reserve but with heavily calcified potentially bileaflet the aortic valve with a valve area then I measure in in the at least borderline critical range of 0.45 centimeter squared/meter squared Objective Data Labs CBC & Chem 7: 05/28/21 05:48 05/28/21 06:47 Labs: Laboratory Results - last 24 hr 05/27/21 05/27/21 05/27/21 17:22 17:28 21:37 WBC RBC Hgb Hct MCV MCH MCHC RDW Plt Count MPV Immature Gran % (Auto) Neut % (Auto) Lymph % (Auto) Stewart % (Auto) Eos % (Auto) Baso % (Auto) Lymph # (Auto) Stewart # (Auto) Eos # (Auto) Baso # (Auto) Abs Immat Gran (auto) Absolute Neuts (auto) Absolute Nucleated RBC Nucleated RBC % (auto) Neutrophils % (Manual) Band Neutrophils % Lymphocytes % (Manual) Monocytes % (Manual) Metamyelocytes % Abs Neuts (Manual) Lymphocytes # (Manual) Monocytes # (Manual) Metamyelocytes # Smudge Cells Platelet Estimate Plt Morphology Comment RBC Morphology Polychromasia Hypochromasia Basophilic Stippling Microcytosis Macrocytosis Tear Drop Cells Ovalocytes Acanthocytes (Spur) Schistocytes VBG pH VBG pCO2 VBG pO2 VBG HCO3 VBG O2 Saturation VBG Base Excess Sodium Potassium Chloride Carbon Dioxide Anion Gap BUN Creatinine Estim Creat Clear Calc Estimated GFR POC Glucose 164 H 129 H Random Glucose Calcium Total Bilirubin AST ALT Alkaline Phosphatase Total Protein Albumin Gastric Occult Blood NEG 05/27/21 05/28/21 05/28/21 23:04 05:05 05:48 WBC 10.4 RBC 2.87 L Hgb 8.0 L Hct 26.0 L MCV 90.6 MCH 27.9 MCHC 30.8 L RDW 16.0 Plt Count 237 MPV 12.1 Immature Gran % (Auto) Cancelled Neut % (Auto) Cancelled Lymph % (Auto) Cancelled Stewart % (Auto) Cancelled Eos % (Auto) Cancelled Baso % (Auto) Cancelled Lymph # (Auto) Cancelled Stewart # (Auto) Cancelled Eos # (Auto) Cancelled Baso # (Auto) Cancelled Abs Immat Gran (auto) Cancelled Absolute Neuts (auto) Cancelled Absolute Nucleated RBC 0.030 H Nucleated RBC % (auto) 0.3 H Neutrophils % (Manual) 81 H Band Neutrophils % 11 H Lymphocytes % (Manual) 4 L Monocytes % (Manual) 3 Metamyelocytes % 1 Abs Neuts (Manual) 9.6 H Lymphocytes # (Manual) 0.4 L Monocytes # (Manual) 0.3 Metamyelocytes # 0.1 Smudge Cells PRESENT Platelet Estimate NORMAL Plt Morphology Comment NORMAL RBC Morphology NOTED Polychromasia 1+ (0-2) Hypochromasia 1+ (5-14) Basophilic Stippling 1+ (0-2) Microcytosis 1+ (5-14) Macrocytosis 1+ (5-14) Tear Drop Cells 1+ (0-2) Ovalocytes 1+ (5-14) Acanthocytes (Spur) 1+ (0-2) Schistocytes 1+ (0-2) VBG pH VBG pCO2 VBG pO2 VBG HCO3 VBG O2 Saturation VBG Base Excess Sodium Potassium Chloride Carbon Dioxide Anion Gap BUN Creatinine Estim Creat Clear Calc Estimated GFR POC Glucose 129 H 136 H Random Glucose Calcium Total Bilirubin AST ALT Alkaline Phosphatase Total Protein Albumin Gastric Occult Blood 05/28/21 05/28/21 05/28/21 05:49 06:47 12:22 WBC RBC Hgb Hct MCV MCH MCHC RDW Plt Count MPV Immature Gran % (Auto) Neut % (Auto) Lymph % (Auto) Stewart % (Auto) Eos % (Auto) Baso % (Auto) Lymph # (Auto) Stewart # (Auto) Eos # (Auto) Baso # (Auto) Abs Immat Gran (auto) Absolute Neuts (auto) Absolute Nucleated RBC Nucleated RBC % (auto) Neutrophils % (Manual) Band Neutrophils % Lymphocytes % (Manual) Monocytes % (Manual) Metamyelocytes % Abs Neuts (Manual) Lymphocytes # (Manual) Monocytes # (Manual) Metamyelocytes # Smudge Cells Platelet Estimate Plt Morphology Comment RBC Morphology Polychromasia Hypochromasia Basophilic Stippling Microcytosis Macrocytosis Tear Drop Cells Ovalocytes Acanthocytes (Spur) Schistocytes VBG pH 7.39 VBG pCO2 34 VBG pO2 51 VBG HCO3 21 L VBG O2 Saturation 79.0 VBG Base Excess -3.1 Sodium 140 Potassium 5.0 Chloride 111 H Carbon Dioxide 21 L Anion Gap 13 BUN 123 H Creatinine 2.06 H Estim Creat Clear Calc 43.8 Estimated GFR 32 POC Glucose 148 H Random Glucose 138 H Calcium 8.3 L Total Bilirubin 0.4 AST 20 ALT 33 Alkaline Phosphatase 46 Total Protein 5.6 L Albumin 2.8 L Gastric Occult Blood Microbiology Microbiology Results: Microbiology 05/26/21 06:44 Blood - Venous Blood Culture - Preliminary No growth after 48 hours. 05/26/21 06:44 Blood - Venous Blood Culture - Preliminary No growth after 48 hours. 05/22/21 11:32 Urine Catheterized - Camacho Catheter Urine Culture - Final Serratia marcescens 05/19/21 16:47 Blood - Venous Blood Culture - Final No growth after 5 days. 05/19/21 16:49 Blood - Venous Blood Culture - Final No growth after 5 days. 05/22/21 15:44 Sputum - Suctioned Gram Stain - Final 05/22/21 15:44 Sputum - Suctioned Sputum Culture - Final 05/15/21 08:25 Blood - Venous Blood Culture - Final No growth after 5 days. 05/15/21 08:25 Blood - Venous Blood Culture - Final No growth after 5 days. 05/17/21 15:20 Sputum - Suctioned Gram Stain - Final 05/17/21 15:20 Sputum - Suctioned Sputum Culture - Final 05/13/21 Unknown Urine Catheterized - Camacho Catheter Urine Culture - Final Serratia marcescens 04/28/21 22:17 Blood - Venous Blood Culture - Final No growth after 5 days. 04/28/21 22:17 Blood - Venous Blood Culture - Final No growth after 5 days. Progress Note: A&P Assessment and plan (1) Aortic stenosis due to bicuspid aortic valve: Status: Acute (2) Anemia: Status: Acute (3) Diabetes: Status: Acute (4) AV block: Status: Acute (5) CHF (congestive heart failure): Status: Acute (6) Type 2 diabetes mellitus: Status: Acute (7) JÚNIOR (acute kidney injury): Status: Acute (8) SARS-CoV-2 positive: Status: Acute (9) ARDS (adult respiratory distress syndrome): Status: Acute (10) CKD (chronic kidney disease) stage 3, GFR 30-59 ml/min: Status: Acute (11) COVID-19 determined by clinical diagnostic criteria: Status: Acute (12) Chronic renal failure: Status: Acute (13) Elevated troponin: Status: Acute (14) Acute kidney injury superimposed on CKD: Status: Acute (15) CHF exacerbation: Status: Acute (16) Acute hypoxemic respiratory failure due to COVID-19: Status: Acute (17) Leg swelling: Status: Acute Assessment and Plan: plan at this point is to again attempt sedation holiday in the morning and if that works out pressure support weaning trial on the ventilator and now all antibiotics are stopped but I would continue to do intermittent surveillance sputum blood and urine cultures and for this persistent serration infection in the urinary tract following about 6 days of antibiotics i.e. put him on a 2nd course with Levaquin and it is day 3 now and probably would look to keep that for another 3-4 days and then repeat the urine culture Quality Stroke Does the patient have a stroke diagnosis?: No VTE Prior VTE?: No VTE Risk Level:: Medical - moderate - high VTE Device Contraindication: Treatment Not Indicated VTE Drug Contraindication: N/A - Med Ordered
[2021-05-28 15:55] LABS: Pneumocystis jir Ql PCR NOT DETECTED; Pneumocystis jir source SPUTUM
[2021-05-28 18:13] LABS: Glucose, Whole Blood 185 mg/dL (60-115)
[2021-05-28] MEDS: Insulin Glargine,Hum.rec.anlog 100 UNIT/ML 10 ML VIAL 24 UNIT SUBCUT (21:00)
[2021-05-28] MEDS: Midazolam HCl/PF 2 MG/2 ML VIAL IVPUSH ×2 (22:38→23:02)
[2021-05-28] MEDS: dexmedeTOMIDidine HCL/NS 400 MCG/100 ML INFUS..BTL 38.85 MCG IVCONT (22:38)
[2021-05-28 23:13] LABS: Glucose, Whole Blood 149 mg/dL (60-115)
[2021-05-28] MEDS: fentaNYL citrate/NS 1,000 MCG/100 ML PLAST..BAG 10 MCG IVCONT (23:14)
[2021-05-29] VITALS (31 sets, daily range): BP systolic 105–140; BP diastolic 47–70; PULSE 59–78; RESP 12–24; TEMP 34.8–37; O2SAT 4–98; BMI 29.8
[2021-05-29 00:25] LABS: Glucose, Whole Blood 131 mg/dL (60-115)
--- NOTE | 2021-05-29 00:33 | PC.NURSE ---
Assumed care from JOSEPH Toribio at 19:40. Patient sedated on 1.0 of Precedex. Awake, alert, following commands. Mostly calm and ventilating well until 22:00, at which time he started stacking every breath in pairs. PRN versed given, PA notified, precedex increased to 1.5, RT notifed. No inline secretions, accessory muscle use evident about that time, Second dose of versed 2 mg PRn given with little to no effect. Patient still stacking breaths at shift change, oncoming RN in to assess. Patient on ventilator still, #7.5 ETT, 23 cm at the lip; AC settings 16; 500; 8; 55%; RT and oncoming RN in to assess and adjusting settings. Urine output light jeana and about 50-100 cc/hour. No BM. Bowel sounds absent, PA notified, will order abdominal x-rays. Patient on TF at 10 cc/hour, residual only 105 ccs, so 240 H2O flush was given at 18:00. Patient with dressing to buttocks, at the time dressing change is due, patient was incidentally stacking breath, restless and unstable, so dressing change deferred as dressing was intact without staining.
[2021-05-29] MEDS: dexmedeTOMIDidine HCL/NS 400 MCG/100 ML INFUS..BTL 38.85 MCG IVCONT ×5 (01:27→13:33)
[2021-05-29] MEDS: Metoclopramide HCl 10 MG/2 ML VIAL 5 MG IVPUSH ×4 (03:51→20:16)
[2021-05-29] MEDS: Heparin Sodium,Porcine 5,000 UNIT/ML VIAL 5000 UNIT SUBCUT ×3 (03:52→20:16)
[2021-05-29] MEDS: fentaNYL citrate/NS 1,000 MCG/100 ML PLAST..BAG 10 MCG IVCONT (05:35)
[2021-05-29] MEDS: levoFLOXacin 250 MG TABLET PO (05:36)
[2021-05-29 05:52] LABS: VBG Base Excess -6.4 mmol/L; VBG HCO3 19 mmol/L (22-26); VBG pCO2 40 mmHg; VBG pH 7.28 (7.32-7.43); VBG pO2 51 mmHg
[2021-05-29 05:55] LABS: Venous Blood Gas Refer to POC result
[2021-05-29 05:57] LABS: MANUAL DIFF FLAG NO
[2021-05-29 06:07] LABS: Basophils Percent Auto 0.1 % (0-2); Eosinophils Absolute Auto 0.1 X10*3/uL (0.0-0.4); Eosinophils Percent Auto 0.7 % (0-4); Hematocrit 26.2 % (42.0-52.0); Hemoglobin 7.9 g/dl (14.0-18.0); Imm Gran Pct Auto 3.3 % (0.0-0.4); Lymphocytes Absolute Auto 0.8 X10*3/uL (1.2-4.9); Lymphocytes Percent Auto 8.5 % (20-40); Mean Corpuscular HGB Conc 30.2 g/dl (31.0-36.0); Mean Corpuscular Hemoglobin 28.1 pg (27.0-33.0); Mean Corpuscular Volume 93.2 fL (80.0-98.0); Mean Platelet Volume 11.6 fL (9.4-12.4); Monocytes Absolute Auto 0.5 X10*3/uL (0.1-1.2); Monocytes Percent Auto 5.5 % (2-11); NRBC Pct Auto 0.2 /100WBC (0.0-0.2); Neutrophils Absolute Auto 7.4 x10*3/uL (2.0-8.3); Neutrophils Percent Auto 81.9 % (45-73); Platelet Count 201 X10*3/uL (160-400); Red Blood Count 2.81 X10*6/uL (4.60-5.80); Red Cell Distribution Width 16.4 % (11.0-16.0); White Blood Count 9.1 X10*3/uL (4.8-10.8)
[2021-05-29 06:24] LABS: Alanine Aminotransferase 30 U/L (0-40); Albumin Level 2.7 g/dL (3.5-5.0); Alkaline Phosphatase 45 U/L (39-117); Anion Gap 11 (12-20); Aspartate Amino Transferase 18 U/L (5-37); Bilirubin Total 0.5 mg/dL (0.0-1.0); Blood Urea Nitrogen 112 mg/dL (9-16); Calcium 8.4 mg/dL (8.4-10.2); Carbon Dioxide 21 mmol/L (22-29); Chloride 116 mmol/L (96-108); Creatinine Clr Calc Pharmacy 46.5; Estimated Glomerular Filt Rate 35; Glucose Random 136 mg/dL (60-115); Potassium 5.4 mmol/L (3.3-5.1); Sodium 143 mmol/L (135-145); Total Protein 5.5 g/dL (6.5-8.0)
--- NOTE | 2021-05-29 06:47 | PC.NURSE ---
CARE ASSUMED 23;15...MARKED VENT DYSYNCHRONY AT HS...PRECIDEX DRIP 1.5 MCG/KG/H...DECREASED SAO2....ICU PA PRESENT....VENT CHANGED TO AC 16/TV 440 PER PA...FENTANYL DRIPMSTARTED 100 MCG/HR WITH GRADUAL VENT SYNCHRONY...OPENS EYES TO TACTILE STIMULI..WINSLOW...AGITATED WITH CARE THEN GRADUALLY RESTFUL WHEN UNSTIMULATED...TUBE FEEDS 10 CC/HR...>250ML RESIDUAL ASPIRATED...ABDOMINAL X-RAY DONE...TUBE FEEDS HELD PER PA.
[2021-05-29] MEDS: predniSONE 5 MG TABLET 15 MG PO (08:09)
[2021-05-29] MEDS: Famotidine/PF 20 MG/2 ML VIAL IVPUSH (08:09)
[2021-05-29] MEDS: Nystatin Powder 15 GM BOTTLE 1 APPL TOPICAL ×3 (08:09→20:17)
[2021-05-29] MEDS: Chlorhexidine Gluc Oral Rinse 15 ML MOUTHWASH BUCCAL ×3 (08:09→20:15)
--- NOTE | 2021-05-29 09:59 | MHC.CLN ---
F/U PT REMAINS INTUBATED TF ON HOLD R/T HIGH RESIDUALS, BROWN/GREEN BILE AND COFFEE GROUNDS DISCUSSED DURING ROUNDS-POSSIBLE STRESS GASTRITIS MD REQUESTING RE-STARTING TF NEPRO AT 20ML/HR TO PROVIDE 864KCALS, 39G PROTEIN, 349CC WATER FROM FORMULA IF TF TOLERATED WITH LOW RESIDUALS; RECOMMEND INCREASING NEPRO TO GOAL RATE 35ML/HR WITH 240CC FREE WATER FLUSHES Q 6 HRS PROVIDES 1512KCALS, 68G PROTEIN, 1571CC TOTAL WATER FROM FORMULA AND FLUSH (18ML/HR) MONITOR TOLERANCE, RESIDUALS AND LYTES
[2021-05-29 10:19] LABS: Phosphorus 6.1 mg/dL (2.7-4.5)
[2021-05-29 11:44] LABS: Glucose, Whole Blood 129 mg/dL (60-115)
[2021-05-29] MEDS: Insulin Lispro 100 UNIT/ML 3 ML VIAL SUBCUT ×2 (13:34→17:57)
[2021-05-29] MEDS: Sodium Zirconium Cyclosilicate 10 GM POWD.PACK OG-TUBE ×2 (13:35→20:15)
--- NOTE | 2021-05-29 14:22 | PM.CCPN ---
Subjective Subjective Date of Service: 05/29/21 Interval History: Mr. Roberson was transferred to ICU on May 09 bec of progressive hypoxemic respiratory failure secondary to COVID pneumonia. The patient is a 66-year-old male with past medical history of HTN, diabetes, CKD (baseline creatinine about 2.1), and CHF.? He is on furosemide and Kayexalate and insulin at home. HISTORY OF PRESENT ILLNESS:? The patient was diagnosed with COVID on April 19 after few days flu like symptoms.? (My estimation of symptom onset date:? April 17, or earlier.) ?Patient had been feeling fairly well up until April 28, when he developed shortness of breath and his found his oxygen saturation to be in the low 60s.? EMS was called and the patient was BIBA to the ED where sat was 96% on NRBFM oxygen 5.2. In the ED, the patient was febrile to 102 degrees.? Labs were notable for normal WBC, creatinine of 3.2, potassium 5.2, BNP 1098, COVID positive.? Chest CT showed moderate-severe multifocal bilateral ground-glass infiltrates, consistent with COVID.? There was also extensive coronary calcifications and atherosclerotic disease of the thoracic aorta. The patient was started on Decadron and Lasix, and admitted to Medicine.? During his course on medicine, the patient had periods of bradycardia down into the 30s and even 20s. ?His creatinine came down to 1.4. ?Echo May 08 showed fairly normal left and right heart, with RVSP 43mm; aortic valve gradients were 23/14, with a calculated valve area of 2.47 cm2. Oxygenation and work of breathing worsened progressively, and on May 09, the patient was transferred to ICU for BiPAP.? He had periods of Mobitz type 1 second-degree AV block, with up to 7-second pauses.? Echo by Dr. Morgan showed normal left and right heart.? The patient was intubated on May 13.? Chest x-ray showed severe bilateral infiltrates consistent with COVID. ?On that day, a temporary pacing wire was also placed.? The patient had poor ventilator synchrony, requiring intermittent boluses of NMB.? His creatinine kandi to 2.4.? BUN has risen as high as 133. ?On May 15, he had several maroon stools with a 2 g drop in hemoglobin.? Eliquis and dexamethasone were stopped.? There was no further bleeding. On 05/17, the temp pacer wire was removed.? Mult urine cultures grew out a drew-sensitive serratia.? Treated with Levaquin.? Last u/a on 05/26 was negative.? Had a temp spike on 05/26.? Cultures negative.? His RIJ CVL was removed and replaced with a left CVL.? Had been on empiric Bactrim and Levaquin.? The fever resolved. Today, he?s sedated on Precedex at 1.5ug and fent @ 100ug.? Opens eyes, tracks, responds to stimulation and vaguely responds to command. ?Heart rate is 61, blood pressure 122/61.? He is afebrile.? On VC+ 16/440cc/I:E 1:2/55%/+8, RR is 22, Ve 8.7L, PIP 18, ETCO2 16(?), Sat 98%.? CVBG this morning showed 7.28/40/-6.? No JVD at 30 degrees.? Chest is clear to auscultation, with a normal expiratory phase.? Heart tones are very soft, and I heard no murmur with the disposable stethoscope.? Abdomen is benign, and he has no edema. We changed him over to pressure support without incident.? On PSV /+8, RR was 13, Vt 600cc, Ve 7.7L, PIP 21cm, ETCO2 19, Sat 93%.? After we turned the Precedex off, he woke up and was following commands.? But WOB increased.? We put him back on the Precedex and assist control ventilation, we?ll try again tomorrow. LABORATORY DATA:? Below.? Notably, hemoglobin has drifted down to 7.9, BUN/creatinine 112/1.9.? Phosphorus is up to 6.1.? Albumin is 2.7. Last chest x-ray on 05/26 showed stable diffuse bilateral interstitial and airspace disease. IMPRESSION: 1. Bilat pulmonary infiltrates with ARDS, 2? COVID pneumonia.? Symptom onset date Apr 17 or earlier.? I will resend a COVID swab, should be negative by now.? I will changes steroids to Solu-Medrol 40 mg bid, add aspirin, vitamin-D, thiamine, and atorvastatin. ? 2. Hypoxemic respiratory failure.? Secondary to above.? Getting close to extubation, but I don?t want to extubate him in borderline condition. 3. Baseline CKD.? Creat is stable, but BUN is rising, phos rising, K is high.? Will d/w renal. 4. Baseline DM.? On insulin. 5. Baseline CHF.? BNP was 1098 on admission.? He was diuresed and the BNP came down to 106.? Last BNP was 523 on 05/13.? Recheck tomorrow. 6. ? Aortic stenosis.? Need to redo his echo to get a better look at the valve. 7. GI bleed.? No source identified.? The patient is back on DVT prophylaxis.? I have added back aspirin and steroids.? Also added bid PPI. 8. ID.? No evidence of sepsis or other bacterial infection.? No indication for any antibiotics at this time. 9. Metabolic:? Hyperkalemic.? Started on LoKelma. 10. Nutrition:? On goal rate Nepro. Critical care time (including full chart review and hospital course summary): ?2+ hours. Critical Care Time (minutes): 120 Physical Exam Vital Signs: Vital Signs: Last Vital Signs Temp 96.8 F 05/29/21 13:00 Pulse 62 05/29/21 13:00 Resp 18 05/29/21 13:00 BP 130/58 L 05/29/21 13:00 Pulse Ox 98 05/29/21 13:00 Oxygen Flow Rate 15 04/28/21 21:37 BMI result Body Mass Index 29.8 Objective Data Labs CBC & Chem 7: 05/29/21 05:40 05/29/21 05:40 Labs: Laboratory Results - last 24 hr 05/24/21 05/28/21 05/28/21 11:59 17:51 20:57 WBC RBC Hgb Hct MCV MCH MCHC RDW Plt Count MPV Immature Gran % (Auto) Neut % (Auto) Lymph % (Auto) Gonzales % (Auto) Eos % (Auto) Baso % (Auto) Lymph # (Auto) Gonzales # (Auto) Eos # (Auto) Baso # (Auto) Abs Immat Gran (auto) Absolute Neuts (auto) Absolute Nucleated RBC Nucleated RBC % (auto) VBG pH VBG pCO2 VBG pO2 VBG HCO3 VBG O2 Saturation VBG Base Excess Sodium Potassium Chloride Carbon Dioxide Anion Gap BUN Creatinine Estim Creat Clear Calc Estimated GFR POC Glucose 185 H 149 H Random Glucose Calcium Phosphorus Total Bilirubin AST ALT Alkaline Phosphatase Total Protein Albumin Pneumocystis Source SPUTUM Pneumocyst jiroveci PCR NOT DETECTED 05/29/21 05/29/21 05/29/21 00:20 05:40 05:40 WBC 9.1 RBC 2.81 L Hgb 7.9 L Hct 26.2 L MCV 93.2 MCH 28.1 MCHC 30.2 L RDW 16.4 H Plt Count 201 MPV 11.6 Immature Gran % (Auto) 3.3 H Neut % (Auto) 81.9 H Lymph % (Auto) 8.5 L Gonzales % (Auto) 5.5 Eos % (Auto) 0.7 Baso % (Auto) 0.1 Lymph # (Auto) 0.8 L Gonzales # (Auto) 0.5 Eos # (Auto) 0.1 Baso # (Auto) 0.0 Abs Immat Gran (auto) 0.30 H Absolute Neuts (auto) 7.4 Absolute Nucleated RBC 0.020 H Nucleated RBC % (auto) 0.2 VBG pH VBG pCO2 VBG pO2 VBG HCO3 VBG O2 Saturation VBG Base Excess Sodium 143 Potassium 5.4 H Chloride 116 H Carbon Dioxide 21 L Anion Gap 11 L BUN 112 H Creatinine 1.91 H Estim Creat Clear Calc 46.5 Estimated GFR 35 POC Glucose 131 H Random Glucose 136 H Calcium 8.4 Phosphorus 6.1 H Total Bilirubin 0.5 AST 18 ALT 30 Alkaline Phosphatase 45 Total Protein 5.5 L Albumin 2.7 L Pneumocystis Source Pneumocyst jiroveci PCR 05/29/21 05/29/21 05:46 11:40 WBC RBC Hgb Hct MCV MCH MCHC RDW Plt Count MPV Immature Gran % (Auto) Neut % (Auto) Lymph % (Auto) Gonzales % (Auto) Eos % (Auto) Baso % (Auto) Lymph # (Auto) Gonzales # (Auto) Eos # (Auto) Baso # (Auto) Abs Immat Gran (auto) Absolute Neuts (auto) Absolute Nucleated RBC Nucleated RBC % (auto) VBG pH 7.28 L VBG pCO2 40 VBG pO2 51 VBG HCO3 19 L VBG O2 Saturation 69.0 VBG Base Excess -6.4 Sodium Potassium Chloride Carbon Dioxide Anion Gap BUN Creatinine Estim Creat Clear Calc Estimated GFR POC Glucose 129 H Random Glucose Calcium Phosphorus Total Bilirubin AST ALT Alkaline Phosphatase Total Protein Albumin Pneumocystis Source Pneumocyst jiroveci PCR Microbiology Microbiology Results: Microbiology 05/28/21 11:25 Sputum - Suctioned Gram Stain - Final 05/28/21 11:25 Sputum - Suctioned Sputum Culture - Preliminary Culture in progress. 05/26/21 06:44 Blood - Venous Blood Culture - Preliminary No growth after 48 hours. 05/26/21 06:44 Blood - Venous Blood Culture - Preliminary No growth after 48 hours. 05/22/21 11:32 Urine Catheterized - Camacho Catheter Urine Culture - Final Serratia marcescens 05/19/21 16:47 Blood - Venous Blood Culture - Final No growth after 5 days. 05/19/21 16:49 Blood - Venous Blood Culture - Final No growth after 5 days. 05/22/21 15:44 Sputum - Suctioned Gram Stain - Final 05/22/21 15:44 Sputum - Suctioned Sputum Culture - Final 05/15/21 08:25 Blood - Venous Blood Culture - Final No growth after 5 days. 05/15/21 08:25 Blood - Venous Blood Culture - Final No growth after 5 days. 05/17/21 15:20 Sputum - Suctioned Gram Stain - Final 05/17/21 15:20 Sputum - Suctioned Sputum Culture - Final 05/13/21 Unknown Urine Catheterized - Camacho Catheter Urine Culture - Final Serratia marcescens 04/28/21 22:17 Blood - Venous Blood Culture - Final No growth after 5 days. 04/28/21 22:17 Blood - Venous Blood Culture - Final No growth after 5 days. Quality Stroke Does the patient have a stroke diagnosis?: No VTE Prior VTE?: No VTE Risk Level:: Medical - moderate - high VTE Device Contraindication: Treatment Not Indicated VTE Drug Contraindication: N/A - Med Ordered Critical Care Time Critical Care Time (minutes): 120
[2021-05-29] MEDS: fentaNYL citrate/NS 1,000 MCG/100 ML PLAST..BAG 5 MCG IVCONT (14:38)
[2021-05-29 17:45] LABS: Glucose, Whole Blood 130 mg/dL (60-115)
--- NOTE | 2021-05-29 18:31 | PM.PNNEP ---
Subjective Subjective Date of Service: 05/29/21 Principal diagnosis: COVID, JÚNIOR, CKD Interval history: Chart reviewed and case d/w ICU team Physical Exam Vital Signs: Vital Signs: Last Vital Signs Temp 96.8 F 05/29/21 17:00 Pulse 67 05/29/21 18:00 Resp 15 05/29/21 18:00 BP 112/56 L 05/29/21 18:00 Pulse Ox 91 L 05/29/21 18:00 Oxygen Flow Rate 15 04/28/21 21:37 BMI result Body Mass Index 29.8 Const: Other: Intubated General: cooperative, comfortable, no acute distress and ill appearing Orientation/consciousness: patient oriented x3 HENMT: Head: Yes normocephalic and Yes atraumatic Eyes: General: appearance normal, both eyes and all related structures Pupils: Equal, round and reactive pupils present EOM: EOMs intact bilaterally Neck: Neck: Yes supple Chest: Chest palpation & inspection: No rash Resp: Effort & Inspection: normal respiratory effort Auscultation: diminished lung sounds Cardio: Palpation: no palpable S3 Rate: regular rate Rhythm: regular rhythm Heart sounds: S1 normal heart sound present and S2 normal heart sound present GI: Palpation (GI): Soft to palpation and nontender Auscultation: normal bowel sounds Skin: General skin exam: no rashes or lesions noted Neuro: Other: Sedated General: patient oriented x3 Cranial nerves: Yes Equal, round and reactive pupils present Cognition (Neuro): normal cognition Motor exam (neuro): No Asterixis during motor activity present Extrem: General: Yes normal to inspection Objective Data Labs CBC & Chem 7: 05/29/21 05:40 05/29/21 05:40 Labs: Laboratory Results - last 24 hr 05/28/21 05/29/21 05/29/21 20:57 00:20 05:40 WBC 9.1 RBC 2.81 L Hgb 7.9 L Hct 26.2 L MCV 93.2 MCH 28.1 MCHC 30.2 L RDW 16.4 H Plt Count 201 MPV 11.6 Immature Gran % (Auto) 3.3 H Neut % (Auto) 81.9 H Lymph % (Auto) 8.5 L [place] % (Auto) 5.5 Eos % (Auto) 0.7 Baso % (Auto) 0.1 Lymph # (Auto) 0.8 L [place] # (Auto) 0.5 Eos # (Auto) 0.1 Baso # (Auto) 0.0 Abs Immat Gran (auto) 0.30 H Absolute Neuts (auto) 7.4 Absolute Nucleated RBC 0.020 H Nucleated RBC % (auto) 0.2 VBG pH VBG pCO2 VBG pO2 VBG HCO3 VBG O2 Saturation VBG Base Excess Sodium Potassium Chloride Carbon Dioxide Anion Gap BUN Creatinine Estim Creat Clear Calc Estimated GFR POC Glucose 149 H 131 H Random Glucose Calcium Phosphorus Total Bilirubin AST ALT Alkaline Phosphatase Total Protein Albumin 05/29/21 05/29/21 05/29/21 05:40 05:46 11:40 WBC RBC Hgb Hct MCV MCH MCHC RDW Plt Count MPV Immature Gran % (Auto) Neut % (Auto) Lymph % (Auto) [place] % (Auto) Eos % (Auto) Baso % (Auto) Lymph # (Auto) [place] # (Auto) Eos # (Auto) Baso # (Auto) Abs Immat Gran (auto) Absolute Neuts (auto) Absolute Nucleated RBC Nucleated RBC % (auto) VBG pH 7.28 L VBG pCO2 40 VBG pO2 51 VBG HCO3 19 L VBG O2 Saturation 69.0 VBG Base Excess -6.4 Sodium 143 Potassium 5.4 H Chloride 116 H Carbon Dioxide 21 L Anion Gap 11 L BUN 112 H Creatinine 1.91 H Estim Creat Clear Calc 46.5 Estimated GFR 35 POC Glucose 129 H Random Glucose 136 H Calcium 8.4 Phosphorus 6.1 H Total Bilirubin 0.5 AST 18 ALT 30 Alkaline Phosphatase 45 Total Protein 5.5 L Albumin 2.7 L 05/29/21 17:13 WBC RBC Hgb Hct MCV MCH MCHC RDW Plt Count MPV Immature Gran % (Auto) Neut % (Auto) Lymph % (Auto) [place] % (Auto) Eos % (Auto) Baso % (Auto) Lymph # (Auto) [place] # (Auto) Eos # (Auto) Baso # (Auto) Abs Immat Gran (auto) Absolute Neuts (auto) Absolute Nucleated RBC Nucleated RBC % (auto) VBG pH VBG pCO2 VBG pO2 VBG HCO3 VBG O2 Saturation VBG Base Excess Sodium Potassium Chloride Carbon Dioxide Anion Gap BUN Creatinine Estim Creat Clear Calc Estimated GFR POC Glucose 130 H Random Glucose Calcium Phosphorus Total Bilirubin AST ALT Alkaline Phosphatase Total Protein Albumin Microbiology Microbiology Results: Microbiology 05/28/21 11:25 Sputum - Suctioned Gram Stain - Final 05/28/21 11:25 Sputum - Suctioned Sputum Culture - Preliminary Culture in progress. 05/26/21 06:44 Blood - Venous Blood Culture - Preliminary No growth after 48 hours. 05/26/21 06:44 Blood - Venous Blood Culture - Preliminary No growth after 48 hours. 05/22/21 11:32 Urine Catheterized - Camacho Catheter Urine Culture - Final Serratia marcescens 05/19/21 16:47 Blood - Venous Blood Culture - Final No growth after 5 days. 05/19/21 16:49 Blood - Venous Blood Culture - Final No growth after 5 days. 05/22/21 15:44 Sputum - Suctioned Gram Stain - Final 05/22/21 15:44 Sputum - Suctioned Sputum Culture - Final 05/15/21 08:25 Blood - Venous Blood Culture - Final No growth after 5 days. 05/15/21 08:25 Blood - Venous Blood Culture - Final No growth after 5 days. 05/17/21 15:20 Sputum - Suctioned Gram Stain - Final 05/17/21 15:20 Sputum - Suctioned Sputum Culture - Final 05/13/21 Unknown Urine Catheterized - Camacho Catheter Urine Culture - Final Serratia marcescens 04/28/21 22:17 Blood - Venous Blood Culture - Final No growth after 5 days. 04/28/21 22:17 Blood - Venous Blood Culture - Final No growth after 5 days. Procedures Date of Service Date of Service: 05/29/21 Assessment & Plan Assessment and plan (1) JÚNIOR (acute kidney injury): Start date: 05/29/21 Start time: 18:33 Status: Acute Assessment and Plan: 1. JÚNIOR: Scr stab;e 2. CKD 3: bsl SCr 1.5-2.0; seesDr Gaston as outpt 3. Incr Bun/Cr: d/t steroids; IV dry ? 4. COVID Resp failure 5. HyperK: controlled with Lokelma REC: cont to track UOP/renal func; avoidNToxns; track K and use K binders as needed Time Spent With Patient Time: Total time spent is greater than 50% in coordination of care (as documented) at patient's floor/unit and/or counseling patient: Progress Note: Quality Stroke Does the patient have a stroke diagnosis?: No
[2021-05-29] MEDS: dexmedeTOMIDidine HCL/NS 400 MCG/100 ML INFUS..BTL 25.9 MCG IVCONT ×2 (18:41→22:45)
[2021-05-29] MEDS: Atorvastatin Calcium 80 MG TABLET PO (20:14)
[2021-05-29] MEDS: Cholecalciferol (Vitamin D3) 25 MCG TABLET NG-TUBE (20:14)
[2021-05-29] MEDS: Thiamine HCL 200 MG in 0.9 % Sodium Chloride 100 ML 204 MG IV (20:15)
[2021-05-29] MEDS: methylPREDNISolone Sod Succ 40 MG/ML VIAL IVPUSH (20:15)
[2021-05-29] MEDS: 0.9 % Sodium Chloride Flush 3 ML SYRINGE IVFLUSH (20:17)
[2021-05-29] MEDS: Insulin Glargine,Hum.rec.anlog 100 UNIT/ML 10 ML VIAL 24 UNIT SUBCUT (20:18)
[2021-05-29 23:00] LABS: Glucose, Whole Blood 115 mg/dL (60-115)
[2021-05-30] VITALS (31 sets, daily range): BP systolic 76–142; BP diastolic 36–73; PULSE 61–96; RESP 12–22; TEMP 34.8–38.1; O2SAT 87–100; BMI 28.0
[2021-05-30 00:07] LABS: Glucose, Whole Blood 107 mg/dL (60-115)
[2021-05-30 00:14] LABS: Influenza A PCR NEGATIVE (Negative); Influenza B PCR NEGATIVE (Negative); Resp Syncy Virus RNA Qual PCR NEGATIVE (Negative)
[2021-05-30 00:18] LABS: SARS COV2 PCR INHOUSE POSITIVE (Negative)
[2021-05-30] MEDS: dexmedeTOMIDidine HCL/NS 400 MCG/100 ML INFUS..BTL 31.08 MCG IVCONT ×3 (02:10→08:42)
[2021-05-30] MEDS: Heparin Sodium,Porcine 5,000 UNIT/ML VIAL 5000 UNIT SUBCUT ×3 (02:12→20:01)
[2021-05-30] MEDS: Metoclopramide HCl 10 MG/2 ML VIAL 5 MG IVPUSH ×4 (02:12→20:04)
[2021-05-30] MEDS: fentaNYL citrate/NS 1,000 MCG/100 ML PLAST..BAG 10 MCG IVCONT (04:59)
[2021-05-30 05:15] LABS: Glucose, Whole Blood 143 mg/dL (60-115)
[2021-05-30 05:37] LABS: VBG Base Excess -7.4 mmol/L; VBG HCO3 17 mmol/L (22-26); VBG pCO2 32 mmHg; VBG pH 7.33 (7.32-7.43); VBG pO2 44 mmHg
[2021-05-30 05:40] LABS: Venous Blood Gas Refer to POC result
[2021-05-30 05:51] LABS: Hematocrit 28.6 % (42.0-52.0); Hemoglobin 8.6 g/dl (14.0-18.0); Mean Corpuscular HGB Conc 30.1 g/dl (31.0-36.0); Mean Corpuscular Hemoglobin 28.2 pg (27.0-33.0); Mean Corpuscular Volume 93.8 fL (80.0-98.0); Mean Platelet Volume 11.7 fL (9.4-12.4); Platelet Count 210 X10*3/uL (160-400); Red Blood Count 3.05 X10*6/uL (4.60-5.80)
[2021-05-30 06:02] LABS: D Dimer High Sensitivity 2233 NG/ML
[2021-05-30 06:08] LABS: Anion Gap 12 (12-20); Blood Urea Nitrogen 98 mg/dL (9-16); C Reactive Protein 2.42 mg/dL (< or = 0.50); Calcium 8.8 mg/dL (8.4-10.2); Carbon Dioxide 21 mmol/L (22-29); Chloride 120 mmol/L (96-108); Creatinine Clr Calc Pharmacy 58.8; Estimated Glomerular Filt Rate 48; Glucose Random 153 mg/dL (60-115); Magnesium 2.3 mg/dL (1.6-2.6); Phosphorus 4.8 mg/dL (2.7-4.5); Potassium 5.9 mmol/L (3.3-5.1); Sodium 147 mmol/L (135-145)
[2021-05-30 06:12] LABS: B Type Natriuretic Peptide 395 pg/mL (<100)
[2021-05-30 06:29] LABS: Procalcitonin 0.29 ng/mL
[2021-05-30 06:35] LABS: Ferritin 1606 ng/mL (20-250)
[2021-05-30] MEDS: Albuterol Sulfate (0.083%) 2.5 MG/3 ML VIAL.NEB 5 MG INHALE (07:27)
[2021-05-30] MEDS: Aspirin 81 MG TAB.CHEW 324 MG NG-TUBE (08:41)
[2021-05-30] MEDS: Calcium Gluconate/NaCl,Iso-Osm 2 GM/100 ML PLAST..BAG IV (08:41)
[2021-05-30] MEDS: Chlorhexidine Gluc Oral Rinse 15 ML MOUTHWASH BUCCAL ×3 (08:42→20:01)
[2021-05-30] MEDS: Cholecalciferol (Vitamin D3) 25 MCG TABLET 50 MCG NG-TUBE (08:42)
[2021-05-30] MEDS: Famotidine/PF 20 MG/2 ML VIAL IVPUSH (08:42)
[2021-05-30] MEDS: methylPREDNISolone Sod Succ 40 MG/ML VIAL IVPUSH ×2 (08:43→20:02)
[2021-05-30] MEDS: Nystatin Powder 15 GM BOTTLE 1 APPL TOPICAL ×2 (08:43→20:02)
[2021-05-30] MEDS: Thiamine HCL 200 MG in 0.9 % Sodium Chloride 100 ML 204 MG IV ×2 (08:43→20:01)
[2021-05-30] MEDS: Sodium Zirconium Cyclosilicate 10 GM POWD.PACK OG-TUBE ×3 (08:44→20:02)
--- NOTE | 2021-05-30 10:38 | PM.PNNEP ---
Subjective Subjective Date of Service: 05/30/21 Principal diagnosis: COVID, JÚNIOR, CKD Interval history: Seen and examined. K remaons elevated despite lokelma 10 gm q 8 hrs Gparesis and not khushbu GT feeds Physical Exam Vital Signs: Vital Signs: Last Vital Signs Temp 97.9 F 05/30/21 08:00 Pulse 89 05/30/21 10:00 Resp 17 05/30/21 10:00 BP 76/44 L 05/30/21 10:00 Pulse Ox 93 05/30/21 10:00 Oxygen Flow Rate 15 04/28/21 21:37 BMI result Body Mass Index 28.0 Const: Other: Intubated General: cooperative, comfortable, no acute distress and ill appearing Orientation/consciousness: patient oriented x3 HENMT: Head: Yes normocephalic and Yes atraumatic Eyes: General: appearance normal, both eyes and all related structures Pupils: Equal, round and reactive pupils present EOM: EOMs intact bilaterally Neck: Neck: Yes supple Chest: Chest palpation & inspection: No rash Resp: Effort & Inspection: normal respiratory effort Auscultation: diminished lung sounds Cardio: Palpation: no palpable S3 Rate: regular rate Rhythm: regular rhythm Heart sounds: S1 normal heart sound present and S2 normal heart sound present GI: Palpation (GI): Soft to palpation and nontender Auscultation: normal bowel sounds Skin: General skin exam: no rashes or lesions noted Neuro: Other: Sedated General: patient oriented x3 Cranial nerves: Yes Equal, round and reactive pupils present Cognition (Neuro): normal cognition Motor exam (neuro): No Asterixis during motor activity present Extrem: General: Yes normal to inspection Objective Data Labs CBC & Chem 7: 05/30/21 05:30 05/30/21 05:30 Labs: Laboratory Results - last 24 hr 05/29/21 05/29/21 05/29/21 11:40 17:13 20:32 WBC RBC Hgb Hct MCV MCH MCHC RDW Plt Count MPV Absolute Nucleated RBC Nucleated RBC % (auto) D-Dimer High Sensitivty VBG pH VBG pCO2 VBG pO2 VBG HCO3 VBG O2 Saturation VBG Base Excess Sodium Potassium Chloride Carbon Dioxide Anion Gap BUN Creatinine Estim Creat Clear Calc Estimated GFR POC Glucose 129 H 130 H 115 Random Glucose Calcium Phosphorus Magnesium Ferritin C-Reactive Protein B-Natriuretic Peptide Procalcitonin Influenza Type A (PCR) Influenza Type B (PCR) RSV RNA Qual (PCR) SARS-CoV-2 RNA (RT-PCR) 05/29/21 05/30/21 05/30/21 23:25 00:01 05:07 WBC RBC Hgb Hct MCV MCH MCHC RDW Plt Count MPV Absolute Nucleated RBC Nucleated RBC % (auto) D-Dimer High Sensitivty VBG pH VBG pCO2 VBG pO2 VBG HCO3 VBG O2 Saturation VBG Base Excess Sodium Potassium Chloride Carbon Dioxide Anion Gap BUN Creatinine Estim Creat Clear Calc Estimated GFR POC Glucose 107 143 H Random Glucose Calcium Phosphorus Magnesium Ferritin C-Reactive Protein B-Natriuretic Peptide Procalcitonin Influenza Type A (PCR) NEGATIVE Influenza Type B (PCR) NEGATIVE RSV RNA Qual (PCR) NEGATIVE SARS-CoV-2 RNA (RT-PCR) POSITIVE A 05/30/21 05/30/21 05/30/21 05:30 05:30 05:30 WBC 7.0 RBC 3.05 L Hgb 8.6 L Hct 28.6 L MCV 93.8 MCH 28.2 MCHC 30.1 L RDW 17.0 H Plt Count 210 MPV 11.7 Absolute Nucleated RBC 0.000 Nucleated RBC % (auto) 0.0 D-Dimer High Sensitivty 2233 VBG pH VBG pCO2 VBG pO2 VBG HCO3 VBG O2 Saturation VBG Base Excess Sodium 147 H Potassium 5.9 H Chloride 120 H Carbon Dioxide 21 L Anion Gap 12 BUN 98 H Creatinine 1.47 H Estim Creat Clear Calc 58.8 Estimated GFR 48 POC Glucose Random Glucose 153 H Calcium 8.8 Phosphorus 4.8 H Magnesium 2.3 Ferritin 1606 H C-Reactive Protein 2.42 H B-Natriuretic Peptide Procalcitonin Influenza Type A (PCR) Influenza Type B (PCR) RSV RNA Qual (PCR) SARS-CoV-2 RNA (RT-PCR) 05/30/21 05/30/21 05/30/21 05:30 05:30 05:31 WBC RBC Hgb Hct MCV MCH MCHC RDW Plt Count MPV Absolute Nucleated RBC Nucleated RBC % (auto) D-Dimer High Sensitivty VBG pH 7.33 VBG pCO2 32 VBG pO2 44 VBG HCO3 17 L VBG O2 Saturation 70.0 VBG Base Excess -7.4 Sodium Potassium Chloride Carbon Dioxide Anion Gap BUN Creatinine Estim Creat Clear Calc Estimated GFR POC Glucose Random Glucose Calcium Phosphorus Magnesium Ferritin C-Reactive Protein B-Natriuretic Peptide 395 H Procalcitonin 0.29 Influenza Type A (PCR) Influenza Type B (PCR) RSV RNA Qual (PCR) SARS-CoV-2 RNA (RT-PCR) Microbiology Microbiology Results: Microbiology 05/28/21 11:25 Sputum - Suctioned Gram Stain - Final 05/28/21 11:25 Sputum - Suctioned Sputum Culture - Preliminary Culture in progress. 05/26/21 06:44 Blood - Venous Blood Culture - Preliminary No growth after 48 hours. 05/26/21 06:44 Blood - Venous Blood Culture - Preliminary No growth after 48 hours. 05/22/21 11:32 Urine Catheterized - Camacho Catheter Urine Culture - Final Serratia marcescens 05/19/21 16:47 Blood - Venous Blood Culture - Final No growth after 5 days. 05/19/21 16:49 Blood - Venous Blood Culture - Final No growth after 5 days. 05/22/21 15:44 Sputum - Suctioned Gram Stain - Final 05/22/21 15:44 Sputum - Suctioned Sputum Culture - Final 05/15/21 08:25 Blood - Venous Blood Culture - Final No growth after 5 days. 05/15/21 08:25 Blood - Venous Blood Culture - Final No growth after 5 days. 05/17/21 15:20 Sputum - Suctioned Gram Stain - Final 05/17/21 15:20 Sputum - Suctioned Sputum Culture - Final 05/13/21 Unknown Urine Catheterized - Camacho Catheter Urine Culture - Final Serratia marcescens 04/28/21 22:17 Blood - Venous Blood Culture - Final No growth after 5 days. 04/28/21 22:17 Blood - Venous Blood Culture - Final No growth after 5 days. Procedures Date of Service Date of Service: 05/30/21 Assessment & Plan Assessment and plan (1) JÚNIOR (acute kidney injury): Start date: 05/30/21 Start time: 10:41 Status: Acute Assessment and Plan: 1. JÚNIOR: Scr cont decr 2. CKD 3: bsl SCr 1.5-2.0; sees Dr Feldman as outpt 3. Incr Bun/Cr: d/t steroids; IV dry ? 4. COVID Resp failure 5. HyperK: cont high despite Lokelma--ques lab error vs not tolerating lokelma; sq hep can interfere with urine K excretion ( anti-dhruv effect); r/o rhabdo; ques covid effect on K tubular handfling 6. HyperNa: replace FWater REC: repeat K and check plasma K; urine K and osm; cont to track UOP/renal func; avoidNToxns; conisder florinegf if K remains elevated; CPK added to labs Time Spent With Patient Time: Total time spent is greater than 50% in coordination of care (as documented) at patient's floor/unit and/or counseling patient: Progress Note: Quality Stroke Does the patient have a stroke diagnosis?: No
[2021-05-30 11:17] LABS: Potassium Urine Random 15.2 mmol/L
[2021-05-30] MEDS: Insulin Lispro 100 UNIT/ML 3 ML VIAL SUBCUT ×2 (11:27→17:50)
[2021-05-30 11:28] LABS: Glucose, Whole Blood 133 mg/dL (60-115)
[2021-05-30 12:55] LABS: Potassium 5.5 mmol/L (3.3-5.1)
--- NOTE | 2021-05-30 13:32 | P.PNCC_ITS ---
Subjective Subjective Date of Service: 05/30/21 Interval History: Mr. Roberson was transferred to ICU on May 09 bec of progressive hypoxemic respiratory failure secondary to COVID pneumonia. The patient is a 66-year-old male with past medical history of HTN, diabetes, CKD (baseline creatinine about 2.1), and CHF.? He is on furosemide and Kayexalate and insulin at home. HISTORY OF PRESENT ILLNESS:? The patient was diagnosed with COVID on April 19 after few days flu like symptoms.? (My estimation of symptom onset date:? April 17, or earlier.)? Patient had been feeling fairly well up until April 28, when he developed shortness of breath and his found his oxygen saturation to be in the low 60s.? EMS was called and the patient was BIBA to the ED where sat was 96% on NRBFM oxygen 5.2. In the ED, the patient was febrile to 102 degrees.? Labs were notable for normal WBC, creatinine of 3.2, potassium 5.2, BNP 1098, COVID positive.? Chest CT showed moderate-severe multifocal bilateral ground-glass infiltrates, consistent with COVID.? There was also extensive coronary calcifications and atherosclerotic disease of the thoracic aorta. The patient was started on Decadron and Lasix, and admitted to Medicine.? During his course on medicine, the patient had periods of bradycardia down into the 30s and even 20s.? His creatinine came down to 1.4.? Echo May 08 showed fairly normal left and right heart, with RVSP 43mm; aortic valve gradients were 23/14, with a calculated valve area of 2.47 cm2. Oxygenation and work of breathing worsened progressively, and on May 09, the patient was transferred to ICU for BiPAP.? He had periods of Mobitz type 1 second-degree AV block, with up to 7-second pauses.? Echo by Dr. Morgan showed normal left and right heart.? The patient was intubated on May 13.? Chest x-ray showed severe bilateral infiltrates consistent with COVID.? On that day, a temporary pacing wire was also placed.? The patient had poor ventilator synchrony, requiring intermittent boluses of NMB.? His creatinine kandi to 2.4.? BUN has risen as high as 133.? On May 15, he had several maroon stools with a 2 g drop in hemoglobin.? Eliquis and dexamethasone were stopped.? There was no further bleeding. On 05/17, the temp pacer wire was removed.? Mult urine cultures grew out a drew- sensitive serratia.? Treated with Levaquin.? Last u/a on 05/26 was negative.? Had a temp spike on 05/26.? Cultures negative.? His RIJ CVL was removed and replaced with a left CVL.? Had been on empiric Bactrim and Levaquin.? The fever resolved. Yesterday, we were able to get him to do a few hours of pressure support ventilation.? We were also able to turn the Precedex off; after couple of hours, the patient was awake and appropriately interactive, although quite weak and sluggish.? He appeared to fatigue, so after few hours we put him back on the propofol and back on assist-control ventilation and rested overnight. See VBG this morning assist control ventilation showed 7.33/32/7. ?Early this morning we put him back on pressure support ventilation. ?Turned the Precedex off.? He woke up and became sluggishly interactive.? Early on, he tolerated pressure support beautifully well. ?After about 6 hours on pressure support, heart rate was 104 with frequent PACs.? Blood pressure dropped, down to as low as 81/39, for no apparent reason. ?Tmax 100.0?.? On PSV 12/50%/+8, RR is 23, Vt 500cc, Ve up to 10.5L, PIP 22, ETCO2 24, Sat down to 92%.? No JVD at 30 degree s.? Abdomen is benign.? He has 1+ central edema. LABORATORY DATA:? Below.? Morning labs show WBC 7.0, Hb up to 8.6.? Sodium is up to 147, BUN/creatinine are down to 98/1.4 (from 112/1.9), and phosphorus is down to 4.8.? But surprisingly, potassium is up to 5.9. ?Albumin is 2.7.? BNP is down to 395. ?DDimer up to 2233.? Ferritin is down to 1600, CRP is steady at 2.4, PCT is 0.2. A lab recheck after the patient dropped his blood pressure showed a white count up to 14.8, hemoglobin up to 9.5, lactate 1.2.?? The patient was started on Levophed. Covid PCR sent last night was positive.? Influenza negative. Last chest x-ray on 05/26 showed stable diffuse bilateral interstitial and airspace disease. IMPRESSION: 1. COVID pneumonia.? Symptom onset date Apr 17 or earlier.? I?m surprised that his COVID swab is still positive.? Yesterday (May 29) changed steroids to Solu-Medrol 40 mg bid, added aspirin, vitamin-D, thiamine, and atorvastatin. 2. Bilat pulmonary infiltrates with ARDS. ?2? to above. 3. Hypoxemic respiratory failure.? Secondary to above.? Clearly fatigued after about 5 hours today.? Getting close to extubation, but I don?t want to extubate him in borderline condition.? I?ll start him on Provigil tomorrow.? That may give him more energy. 4. Baseline CKD.? BUN/creat dropping nicely.? Phos is dropping.? The rise in his potassium is impossible to understand. 4. Baseline DM.? On insulin. 5. Baseline CHF.? BNP was 1098 on admission.? He was diuresed and the BNP came down to 106.? Last BNP was 523 on 05/13.? Down to 395 today.? Might try diuresis tomorrow. 6. ? Aortic stenosis.? Need to redo his echo to get a better look at the valve. 7. GI bleed.? No source identified.? The patient is back on DVT prophylaxis.? I have added back aspirin and steroids.? Also added bid PPI.? No further evidence of bleeding. 8. Hypotension today.? No clear etiology.? WBC is bumped but no real fever, lactate is normal.? For now I?m OK with using low dose Levophed as opposed to attempting fluid resuscitation. 9. ID.? No clear evidence of sepsis or other bacterial infection.? I?ve sent blood, urine, and sputum cultures.? No indication for antibiotics at this time. 10. Metabolic:? Hyperkalemic.? Started on LoKelma yesterday.? Hard to fathom why his potassium is rising in the face of lower renal indices and lower phos.? Discussed with Renal at length.? Rechecked plasma potassium and it came back at 5.5. 11. Hyperntremia.? Start free water flushes. 11. Nutrition:? On goal rate Nepro. Critical care time (including mult visits to bedside to reassess resp status and reassess neuro status; mult d/w Dr. Ramirez):? 80+ min. Critical Care Time (minutes): 80 Physical Exam Vital Signs: Vital Signs: Last Vital Signs Temp 98.6 F 05/30/21 13:00 Pulse 79 05/30/21 13:00 Resp 18 05/30/21 13:00 BP 135/65 05/30/21 13:00 Pulse Ox 95 05/30/21 13:00 Oxygen Flow Rate 15 04/28/21 21:37 BMI result Body Mass Index 28.0 Objective Data Labs CBC & Chem 7: 05/30/21 14:42 05/30/21 12:21 Labs: Laboratory Results - last 24 hr 05/29/21 05/29/21 05/29/21 17:13 20:32 23:25 WBC RBC Hgb Hct MCV MCH MCHC RDW Plt Count MPV Absolute Nucleated RBC Nucleated RBC % (auto) D-Dimer High Sensitivty VBG pH VBG pCO2 VBG pO2 VBG HCO3 VBG O2 Saturation VBG Base Excess Sodium Potassium Chloride Carbon Dioxide Anion Gap BUN Creatinine Estim Creat Clear Calc Estimated GFR POC Glucose 130 H 115 Random Glucose Calcium Phosphorus Magnesium Ferritin Total Creatine Kinase C-Reactive Protein B-Natriuretic Peptide Procalcitonin Ur Random Sodium Ur Random Potassium Influenza Type A (PCR) NEGATIVE Influenza Type B (PCR) NEGATIVE RSV RNA Qual (PCR) NEGATIVE SARS-CoV-2 RNA (RT-PCR) POSITIVE A 05/30/21 05/30/21 05/30/21 00:01 05:07 05:30 WBC 7.0 RBC 3.05 L Hgb 8.6 L Hct 28.6 L MCV 93.8 MCH 28.2 MCHC 30.1 L RDW 17.0 H Plt Count 210 MPV 11.7 Absolute Nucleated RBC 0.000 Nucleated RBC % (auto) 0.0 D-Dimer High Sensitivty VBG pH VBG pCO2 VBG pO2 VBG HCO3 VBG O2 Saturation VBG Base Excess Sodium Potassium Chloride Carbon Dioxide Anion Gap BUN Creatinine Estim Creat Clear Calc Estimated GFR POC Glucose 107 143 H Random Glucose Calcium Phosphorus Magnesium Ferritin Total Creatine Kinase C-Reactive Protein B-Natriuretic Peptide Procalcitonin Ur Random Sodium Ur Random Potassium Influenza Type A (PCR) Influenza Type B (PCR) RSV RNA Qual (PCR) SARS-CoV-2 RNA (RT-PCR) 05/30/21 05/30/21 05/30/21 05:30 05:30 05:30 WBC RBC Hgb Hct MCV MCH MCHC RDW Plt Count MPV Absolute Nucleated RBC Nucleated RBC % (auto) D-Dimer High Sensitivty 2233 VBG pH VBG pCO2 VBG pO2 VBG HCO3 VBG O2 Saturation VBG Base Excess Sodium 147 H Potassium 5.9 H Chloride 120 H Carbon Dioxide 21 L Anion Gap 12 BUN 98 H Creatinine 1.47 H Estim Creat Clear Calc 58.8 Estimated GFR 48 POC Glucose Random Glucose 153 H Calcium 8.8 Phosphorus 4.8 H Magnesium 2.3 Ferritin 1606 H Total Creatine Kinase 87 D C-Reactive Protein 2.42 H B-Natriuretic Peptide 395 H Procalcitonin Ur Random Sodium Ur Random Potassium Influenza Type A (PCR) Influenza Type B (PCR) RSV RNA Qual (PCR) SARS-CoV-2 RNA (RT-PCR) 05/30/21 05/30/21 05/30/21 05:30 05:31 10:55 WBC RBC Hgb Hct MCV MCH MCHC RDW Plt Count MPV Absolute Nucleated RBC Nucleated RBC % (auto) D-Dimer High Sensitivty VBG pH 7.33 VBG pCO2 32 VBG pO2 44 VBG HCO3 17 L VBG O2 Saturation 70.0 VBG Base Excess -7.4 Sodium Potassium Chloride Carbon Dioxide Anion Gap BUN Creatinine Estim Creat Clear Calc Estimated GFR POC Glucose Random Glucose Calcium Phosphorus Magnesium Ferritin Total Creatine Kinase C-Reactive Protein B-Natriuretic Peptide Procalcitonin 0.29 Ur Random Sodium 59.0 Ur Random Potassium 15.2 Influenza Type A (PCR) Influenza Type B (PCR) RSV RNA Qual (PCR) SARS-CoV-2 RNA (RT-PCR) 05/30/21 05/30/21 11:24 12:21 WBC RBC Hgb Hct MCV MCH MCHC RDW Plt Count MPV Absolute Nucleated RBC Nucleated RBC % (auto) D-Dimer High Sensitivty VBG pH VBG pCO2 VBG pO2 VBG HCO3 VBG O2 Saturation VBG Base Excess Sodium Potassium 5.5 H Chloride Carbon Dioxide Anion Gap BUN Creatinine Estim Creat Clear Calc Estimated GFR POC Glucose 133 H Random Glucose Calcium Phosphorus Magnesium Ferritin Total Creatine Kinase C-Reactive Protein B-Natriuretic Peptide Procalcitonin Ur Random Sodium Ur Random Potassium Influenza Type A (PCR) Influenza Type B (PCR) RSV RNA Qual (PCR) SARS-CoV-2 RNA (RT-PCR) Microbiology Microbiology Results: Microbiology 05/28/21 11:25 Sputum - Suctioned Gram Stain - Final 05/28/21 11:25 Sputum - Suctioned Sputum Culture - Final 05/26/21 06:44 Blood - Venous Blood Culture - Preliminary No growth after 48 hours. 05/26/21 06:44 Blood - Venous Blood Culture - Preliminary No growth after 48 hours. 05/22/21 11:32 Urine Catheterized - Camacho Catheter Urine Culture - Final Serratia marcescens 05/19/21 16:47 Blood - Venous Blood Culture - Final No growth after 5 days. 05/19/21 16:49 Blood - Venous Blood Culture - Final No growth after 5 days. 05/22/21 15:44 Sputum - Suctioned Gram Stain - Final 05/22/21 15:44 Sputum - Suctioned Sputum Culture - Final 05/15/21 08:25 Blood - Venous Blood Culture - Final No growth after 5 days. 05/15/21 08:25 Blood - Venous Blood Culture - Final No growth after 5 days. 05/17/21 15:20 Sputum - Suctioned Gram Stain - Final 05/17/21 15:20 Sputum - Suctioned Sputum Culture - Final 05/13/21 Unknown Urine Catheterized - Camacho Catheter Urine Culture - Final Serratia marcescens 04/28/21 22:17 Blood - Venous Blood Culture - Final No growth after 5 days. 04/28/21 22:17 Blood - Venous Blood Culture - Final No growth after 5 days. Quality Stroke Does the patient have a stroke diagnosis?: No VTE Prior VTE?: No VTE Risk Level:: Medical - moderate - high VTE Device Contraindication: Treatment Not Indicated VTE Drug Contraindication: N/A - Med Ordered Critical Care Time Critical Care Time (minutes): 90
[2021-05-30] MEDS: fentaNYL citrate/NS 1,000 MCG/100 ML PLAST..BAG 5 MCG IVCONT (14:48)
[2021-05-30 15:19] LABS: Hemoglobin 9.5 g/dl (14.0-18.0); Mean Corpuscular HGB Conc 29.7 g/dl (31.0-36.0); Mean Corpuscular Hemoglobin 28.4 pg (27.0-33.0); Mean Corpuscular Volume 95.5 fL (80.0-98.0); Mean Platelet Volume 11.7 fL (9.4-12.4); NRBC Pct Auto 0.3 /100WBC (0.0-0.2); Platelet Count 349 X10*3/uL (160-400); Red Blood Count 3.35 X10*6/uL (4.60-5.80); Red Cell Distribution Width 17.3 % (11.0-16.0); White Blood Count 14.8 X10*3/uL (4.8-10.8)
[2021-05-30 15:30] LABS: Lactic Acid 1.2 mmol/L (0.5-2.0)
[2021-05-30] MEDS: dexmedeTOMIDidine HCL/NS 400 MCG/100 ML INFUS..BTL 25.9 MCG IVCONT ×2 (17:29→21:06)
[2021-05-30] MEDS: Atorvastatin Calcium 80 MG TABLET PO (20:01)
[2021-05-30] MEDS: Insulin Glargine,Hum.rec.anlog 100 UNIT/ML 10 ML VIAL 24 UNIT SUBCUT (20:02)
[2021-05-30 20:23] LABS: Glucose, Whole Blood 122 mg/dL (60-115)
[2021-05-30 20:23] LABS: Glucose, Whole Blood 152 mg/dL (60-115)
[2021-05-30 21:40] LABS: Osmolality Urine 417 mosm/kg (373-1093)
[2021-05-30 21:57] LABS: Legionella Pneumophila Ab IgM <1:256 TITER
[2021-05-31] VITALS (38 sets, daily range): BP systolic 85–148; BP diastolic 39–78; PULSE 47–134; RESP 15–29; TEMP 34.7–38.3; O2SAT 83–98; BMI 29.2
[2021-05-31] MEDS: Insulin Lispro 100 UNIT/ML 3 ML VIAL SUBCUT ×3 (00:40→18:25)
[2021-05-31 00:41] LABS: Glucose, Whole Blood 166 mg/dL (60-115)
[2021-05-31] MEDS: dexmedeTOMIDidine HCL/NS 400 MCG/100 ML INFUS..BTL 25.9 MCG IVCONT ×4 (00:41→12:14)
[2021-05-31 01:07] LABS: Appearance Urine CLEAR; Color Urine YELLOW; Glucose Urine UA NEG (NEG); Leukocyte Esterase Urine NEG (NEG); Nitrite Urine NEG (NEG); PH 5.5 (5.0-8.0); Urine Blood 2+ (NEG); Urine Ketones NEG (NEG); Urine Protein 1+ MG/DL (NEG-TRACE)
[2021-05-31 01:40] LABS: Mucus Urine TRACE /LPF; Squamous Epithelial Cell Urine TRACE /LPF; WBC Urine 0-2 /HPF (0-4)
[2021-05-31 01:41] LABS: Amorphous Sediment Urine 1+ /LPF; Hyaline Casts Urine 0-2 /LPF
[2021-05-31] MEDS: Heparin Sodium,Porcine 5,000 UNIT/ML VIAL 5000 UNIT SUBCUT ×3 (02:37→20:12)
[2021-05-31] MEDS: Metoclopramide HCl 10 MG/2 ML VIAL 5 MG IVPUSH ×4 (02:37→20:15)
[2021-05-31 05:39] LABS: VBG Base Excess -6.6 mmol/L; VBG HCO3 17 mmol/L (22-26); VBG pCO2 28 mmHg; VBG pH 7.38 (7.32-7.43); VBG pO2 43 mmHg
[2021-05-31 05:41] LABS: Venous Blood Gas Refer to POC result
[2021-05-31 05:42] LABS: Hematocrit 27.4 % (42.0-52.0); Hemoglobin 8.3 g/dl (14.0-18.0); Mean Corpuscular HGB Conc 30.3 g/dl (31.0-36.0); Mean Corpuscular Hemoglobin 28.4 pg (27.0-33.0); Mean Corpuscular Volume 93.8 fL (80.0-98.0); Mean Platelet Volume 11.5 fL (9.4-12.4); NRBC Pct Auto 0.3 /100WBC (0.0-0.2); Platelet Count 227 X10*3/uL (160-400); Red Blood Count 2.92 X10*6/uL (4.60-5.80); Red Cell Distribution Width 17.4 % (11.0-16.0); White Blood Count 9.1 X10*3/uL (4.8-10.8)
[2021-05-31 05:56] LABS: Anion Gap 11 (12-20); Blood Urea Nitrogen 106 mg/dL (9-16); Calcium 8.8 mg/dL (8.4-10.2); Carbon Dioxide 21 mmol/L (22-29); Chloride 122 mmol/L (96-108); Estimated Glomerular Filt Rate 43; Glucose Random 164 mg/dL (60-115); Magnesium 2.3 mg/dL (1.6-2.6); Phosphorus 3.8 mg/dL (2.7-4.5); Potassium 5.4 mmol/L (3.3-5.1); Sodium 149 mmol/L (135-145)
--- NOTE | 2021-05-31 06:06 | ECG_ITS ---
Test Reason : ? complete HB Blood Pressure : / mmHG Vent. Rate : 051 BPM Atrial Rate : 102 BPM P-R Int : 368 ms QRS Dur : 070 ms QT Int : 404 ms P-R-T Axes : 015 -14 002 degrees QTc Int : 372 ms Normal sinus rhythm with intermittent second degree heart block When compared with ECG of 19-MAY-2021 19:39, rhythm change Referred By: Delicia Levine Electronically Signed By:JULIANNE LOWE
--- NOTE | 2021-05-31 06:20 | ECG_ITS ---
Test Reason : ? complete HB Blood Pressure : / mmHG Vent. Rate : 044 BPM Atrial Rate : 058 BPM P-R Int : 368 ms QRS Dur : 074 ms QT Int : 414 ms P-R-T Axes : 036 -18 -12 degrees QTc Int : 353 ms Sinus rhythm with second degree HB Abnormal ECG When compared with ECG of 31-MAY-2021 06:17, No significant changes seen Referred By: Delicia Levine Electronically Signed By:JULIANNE LOWE
--- NOTE | 2021-05-31 06:21 | ECG_ITS ---
Test Reason : ? complete HB Blood Pressure : / mmHG Vent. Rate : 042 BPM Atrial Rate : 102 BPM P-R Int : 000 ms QRS Dur : 072 ms QT Int : 416 ms P-R-T Axes : 058 -14 -09 degrees QTc Int : 347 ms Normal sinus rhythm with second degree HB Abnormal ECG When compared with ECG of 31-MAY-2021 06:18, No significant changes seen Referred By: Delicia Levine Electronically Signed By:JULIANNE LOWE
--- NOTE | 2021-05-31 06:23 | ECG_ITS ---
Test Reason : ? complete HB Blood Pressure : / mmHG Vent. Rate : 055 BPM Atrial Rate : 000 BPM P-R Int : 000 ms QRS Dur : 072 ms QT Int : 414 ms P-R-T Axes : 000 -14 -11 degrees QTc Int : 396 ms Normal sinus rhythm with second degree HB Premature ventricular complexes Abnormal ECG When compared with ECG of 31-MAY-2021 06:21, No significant changes seen Referred By: Delicia Levine Electronically Signed By:JULIANNE LOWE
--- NOTE | 2021-05-31 06:25 | ECG_ITS ---
Test Reason : ? complete HB Blood Pressure : / mmHG Vent. Rate : 050 BPM Atrial Rate : 102 BPM P-R Int : 000 ms QRS Dur : 082 ms QT Int : 412 ms P-R-T Axes : 000 -17 -15 degrees QTc Int : 375 ms Sinus tachycardia with second degree HB Abnormal ECG When compared with ECG of 31-MAY-2021 06:16, No significant changes seen Referred By: Delicia Levine Electronically Signed By:JULIANNE LOWE
--- NOTE | 2021-05-31 07:30 | MHC.PIE ---
P: monitor appears to show complete heart block and going in between CBH and mobitz 2. HR goes as low as 40's, with occ PVC's. Sustaining more in 50's to 60's. Monitor through night had been showing SR w/ large 1st deg hB. I: EKG done - pacer pads done. Annie BABB made aware and viewed monitor strips & EKG. No new orders at this time. Titrated levo back up r/t BP dropping to 80's systolic, map <65. e: Patient tolerating vent - BP stabilized with low dose levo.
[2021-05-31] MEDS: modafiniL 100 MG TABLET 200 MG PO (08:28)
[2021-05-31] MEDS: Aspirin 81 MG TAB.CHEW 324 MG NG-TUBE (08:28)
[2021-05-31] MEDS: Cholecalciferol (Vitamin D3) 25 MCG TABLET 50 MCG NG-TUBE (08:28)
[2021-05-31] MEDS: 0.9 % Sodium Chloride Flush 3 ML SYRINGE IVFLUSH ×6 (08:28→23:44)
[2021-05-31] MEDS: Chlorhexidine Gluc Oral Rinse 15 ML MOUTHWASH BUCCAL ×3 (08:28→20:14)
[2021-05-31] MEDS: methylPREDNISolone Sod Succ 40 MG/ML VIAL IVPUSH ×2 (08:29→20:14)
[2021-05-31] MEDS: Famotidine/PF 20 MG/2 ML VIAL IVPUSH (08:29)
[2021-05-31] MEDS: Thiamine HCL 200 MG in 0.9 % Sodium Chloride 100 ML 204 MG IV ×2 (08:29→20:15)
[2021-05-31] MEDS: Calcium Gluconate/NaCl,Iso-Osm 2 GM/100 ML PLAST..BAG IV (08:30)
[2021-05-31] MEDS: fentaNYL citrate/NS 1,000 MCG/100 ML PLAST..BAG 5 MCG IVCONT (08:48)
[2021-05-31] MEDS: Nystatin Powder 15 GM BOTTLE 1 APPL TOPICAL ×3 (08:51→20:15)
--- NOTE | 2021-05-31 09:42 | MHC.CLN ---
F/U TUBE FEEDING AT GOAL RATE: NEPRO 35ML/HR WITH 240CC FREE WATER FLUSHES Q 6 HRS PROVIDES 1512KCALS, 68G PROTEIN, 1571CC TOTAL WATER FROM FORMULA AND FLUSH (18ML/HR). FAIR TOLERANCE REPORTED. MONITOR TOLERANCE, RESIDUALS AND LYTES. .
[2021-05-31 11:48] LABS: Glucose, Whole Blood 109 mg/dL (60-115)
--- NOTE | 2021-05-31 13:15 | PC.NURSE ---
Addendum entered by Malu Lanier RN 05/31/21 19:15: ?ETT OCCLUSION. HIGH PEAK PRESSURES NOTED. MD AWARE. DECISION MADE TO CHANGE ETT BY MD. SEDATED WITH PROPOFOL 30 MG IVP, KETAMINE 50 MG IVP AND ROCURONIUM 30 MG IVP AT 1823. ETT CHANGED WITH ASSISTANCE FROM THIS RN AND RT. NEW ETT 8.0/24 AT LIP. CXR OBTAINED. PER MD ADVANCE ETT 1 CM. RT ADVANCED TO 25 AT THE LIP. VENT SETTINGS ADJUSTED TO AC 14/500/8/40%. TOLERATING WELL. WILL CONTINUE TO MONITOR. Addendum entered by Malu Lanier RN 05/31/21 14:17: 02 DROPPED TO 82-83% AND SUSTAINING. FI02 INCREASED TO 50%. MD NOTIFIED. WILL CONTINUE TO MONITOR. Addendum entered by Malu Lanier RN 05/31/21 13:33: HR REMAINS IN 130S WITH INCREASED WOB. SEDATION RESTARTED AT 1332. WILL CONTINUE TO MONITOR. Original Note: SEDATION VACATION STARTED AT 1247. RT BEDSIDE TO CHANGE VENT TO PSV 12/8 ON 40% AT 1300. AT 1305 PTS HR 130S, INCREASED WOB, RR 30-35. VENT SETTING CHANGED BACK TO AC 18/500/8/40%. WILL CONTINUE TO MONITOR.
--- NOTE | 2021-05-31 14:20 | PM.PNNEP ---
Subjective Subjective Date of Service: 05/31/21 Principal diagnosis: COVID, JÚNIOR, CKD Interval history: Chart reviewed and case d/w ICU team and in particular re: hyperKalemia causes and management Physical Exam Vital Signs: Vital Signs: Last Vital Signs Temp 99.7 F 05/31/21 13:00 Pulse 88 05/31/21 14:00 Resp 19 05/31/21 14:00 BP 126/47 L 05/31/21 14:00 Pulse Ox 83 L 05/31/21 14:07 Oxygen Flow Rate 15 04/28/21 21:37 BMI result Body Mass Index 29.2 Const: Other: Intubated General: cooperative, comfortable, no acute distress and ill appearing Orientation/consciousness: patient oriented x3 HENMT: Head: Yes normocephalic and Yes atraumatic Eyes: General: appearance normal, both eyes and all related structures Pupils: Equal, round and reactive pupils present EOM: EOMs intact bilaterally Neck: Neck: Yes supple Chest: Chest palpation & inspection: No rash Resp: Effort & Inspection: normal respiratory effort Auscultation: diminished lung sounds Cardio: Palpation: no palpable S3 Rate: regular rate Rhythm: regular rhythm Heart sounds: S1 normal heart sound present and S2 normal heart sound present GI: Palpation (GI): Soft to palpation and nontender Auscultation: normal bowel sounds Skin: General skin exam: no rashes or lesions noted Neuro: Other: Sedated General: patient oriented x3 Cranial nerves: Yes Equal, round and reactive pupils present Cognition (Neuro): normal cognition Motor exam (neuro): No Asterixis during motor activity present Extrem: General: Yes normal to inspection Objective Data Labs CBC & Chem 7: 05/31/21 05:25 05/31/21 05:25 Labs: Laboratory Results - last 24 hr 05/24/21 05/30/21 05/30/21 09:30 10:55 14:42 WBC 14.8 H RBC 3.35 L Hgb 9.5 L Hct 32.0 L MCV 95.5 MCH 28.4 MCHC 29.7 L RDW 17.3 H Plt Count 349 D MPV 11.7 Absolute Nucleated RBC 0.040 H Nucleated RBC % (auto) 0.3 H VBG pH VBG pCO2 VBG pO2 VBG HCO3 VBG O2 Saturation VBG Base Excess Sodium Potassium Chloride Carbon Dioxide Anion Gap BUN Creatinine Estim Creat Clear Calc Estimated GFR POC Glucose Random Glucose Lactic Acid Calcium Phosphorus Magnesium Urine Color Urine Appearance Urine pH Ur Specific [place] Urine Protein Urine Glucose (UA) Urine Ketones Urine Blood Urine Nitrite Ur Leukocyte Esterase Urine RBC Urine WBC Ur Squamous Epith Cells Amorphous Sediment Urine Bacteria Hyaline Casts Urine Mucus Urine Osmolality 417 L.pneumophila IgM Ab <1:256 05/30/21 05/30/21 05/30/21 14:42 17:37 20:18 WBC RBC Hgb Hct MCV MCH MCHC RDW Plt Count MPV Absolute Nucleated RBC Nucleated RBC % (auto) VBG pH VBG pCO2 VBG pO2 VBG HCO3 VBG O2 Saturation VBG Base Excess Sodium Potassium Chloride Carbon Dioxide Anion Gap BUN Creatinine Estim Creat Clear Calc Estimated GFR POC Glucose 152 H 122 H Random Glucose Lactic Acid 1.2 Calcium Phosphorus Magnesium Urine Color Urine Appearance Urine pH Ur Specific [place] Urine Protein Urine Glucose (UA) Urine Ketones Urine Blood Urine Nitrite Ur Leukocyte Esterase Urine RBC Urine WBC Ur Squamous Epith Cells Amorphous Sediment Urine Bacteria Hyaline Casts Urine Mucus Urine Osmolality L.pneumophila IgM Ab 05/31/21 05/31/21 05/31/21 00:36 00:50 05:25 WBC 9.1 RBC 2.92 L Hgb 8.3 L Hct 27.4 L MCV 93.8 MCH 28.4 MCHC 30.3 L RDW 17.4 H Plt Count 227 D MPV 11.5 Absolute Nucleated RBC 0.030 H Nucleated RBC % (auto) 0.3 H VBG pH VBG pCO2 VBG pO2 VBG HCO3 VBG O2 Saturation VBG Base Excess Sodium Potassium Chloride Carbon Dioxide Anion Gap BUN Creatinine Estim Creat Clear Calc Estimated GFR POC Glucose 166 H Random Glucose Lactic Acid Calcium Phosphorus Magnesium Urine Color YELLOW Urine Appearance CLEAR Urine pH 5.5 Ur Specific [place] 1.020 Urine Protein 1+ H Urine Glucose (UA) NEG Urine Ketones NEG Urine Blood 2+ H Urine Nitrite NEG Ur Leukocyte Esterase NEG Urine RBC 1-4 Urine WBC 0-2 Ur Squamous Epith Cells TRACE Amorphous Sediment 1+ Urine Bacteria NONE Hyaline Casts 0-2 Urine Mucus TRACE Urine Osmolality L.pneumophila IgM Ab 05/31/21 05/31/21 05/31/21 05:25 05:29 11:44 WBC RBC Hgb Hct MCV MCH MCHC RDW Plt Count MPV Absolute Nucleated RBC Nucleated RBC % (auto) VBG pH 7.38 VBG pCO2 28 VBG pO2 43 VBG HCO3 17 L VBG O2 Saturation 73.0 VBG Base Excess -6.6 Sodium 149 H Potassium 5.4 H Chloride 122 H Carbon Dioxide 21 L Anion Gap 11 L BUN 106 H Creatinine 1.60 H Estim Creat Clear Calc 55.0 Estimated GFR 43 POC Glucose 109 Random Glucose 164 H Lactic Acid Calcium 8.8 Phosphorus 3.8 Magnesium 2.3 Urine Color Urine Appearance Urine pH Ur Specific [place] Urine Protein Urine Glucose (UA) Urine Ketones Urine Blood Urine Nitrite Ur Leukocyte Esterase Urine RBC Urine WBC Ur Squamous Epith Cells Amorphous Sediment Urine Bacteria Hyaline Casts Urine Mucus Urine Osmolality L.pneumophila IgM Ab Microbiology Microbiology Results: Microbiology 05/26/21 06:44 Blood - Venous Blood Culture - Final No growth after 5 days. 05/26/21 06:44 Blood - Venous Blood Culture - Final No growth after 5 days. 05/28/21 11:25 Sputum - Suctioned Gram Stain - Final 05/28/21 11:25 Sputum - Suctioned Sputum Culture - Final 05/22/21 11:32 Urine Catheterized - Camacho Catheter Urine Culture - Final Serratia marcescens 05/19/21 16:47 Blood - Venous Blood Culture - Final No growth after 5 days. 05/19/21 16:49 Blood - Venous Blood Culture - Final No growth after 5 days. 05/22/21 15:44 Sputum - Suctioned Gram Stain - Final 05/22/21 15:44 Sputum - Suctioned Sputum Culture - Final 05/15/21 08:25 Blood - Venous Blood Culture - Final No growth after 5 days. 05/15/21 08:25 Blood - Venous Blood Culture - Final No growth after 5 days. 05/17/21 15:20 Sputum - Suctioned Gram Stain - Final 05/17/21 15:20 Sputum - Suctioned Sputum Culture - Final 05/13/21 Unknown Urine Catheterized - Camacho Catheter Urine Culture - Final Serratia marcescens 04/28/21 22:17 Blood - Venous Blood Culture - Final No growth after 5 days. 04/28/21 22:17 Blood - Venous Blood Culture - Final No growth after 5 days. Procedures Date of Service Date of Service: 05/31/21 Assessment & Plan Assessment and plan (1) JÚNIOR (acute kidney injury): Status: Acute Assessment and Plan: 1. JÚNIOR: Scr cont decr 2. CKD 3: bsl SCr 1.5-2.0; sees Dr Feldman as outpt 3. Incr Bun/Cr: d/t steroids; IV dry ? 4. COVID Resp failure 5. HyperK: cont high despite Lokelma w/u including urine TTK( masure of tubular K handling was 2.5 which is inappr low andc/w relative hypoaldo state) and c/w Heparin interference with dhruv active;in google search re: K handling and COVID there are more assoc with hypoK then hyperK ( notincluding JÚNIOR cases) so it does not appear that COVID is likely the direct oreven indirect cause of hyperK but rather the Heparin 6. HyperNa: contto replace FWater REC: cont to use lokelma and track K level; rec switch to lovenoxas less prone to cause hyperK; addflorinef 0.1 bid to help incrurineK excretion and/or iv lasix if BP/intravasc vol can tolerate Will follow with team Time Spent With Patient Time: Total time spent is greater than 50% in coordination of care (as documented) at patient's floor/unit and/or counseling patient: Progress Note: Quality Stroke Does the patient have a stroke diagnosis?: No
--- NOTE | 2021-05-31 15:28 | MHC.CM.PN ---
Pt remains intubated in ICU secondary to COVID : renal following - no plans to extubate at this time. CM will follow for finalization of d/c plans which may involve placement
[2021-05-31] MEDS: dexmedeTOMIDidine HCL/NS 400 MCG/100 ML INFUS..BTL 31.08 MCG IVCONT ×3 (16:54→23:43)
--- NOTE | 2021-05-31 17:08 | PM.CCPN ---
Subjective Subjective Date of Service: 05/31/21 Interval History: Mr. Roberson was transferred to ICU on May 09 bec of progressive hypoxemic respiratory failure secondary to COVID pneumonia. The patient is a 66-year-old male with past medical history of HTN, diabetes, CKD (baseline creatinine about 2.1), and CHF.? He is on furosemide and Kayexalate and insulin at home. HISTORY OF PRESENT ILLNESS:? The patient was diagnosed with COVID on April 19 after few days flu like symptoms.? (My estimation of symptom onset date:? April 17, or earlier.)? Patient had been feeling fairly well up until April 28, when he developed shortness of breath and his found his oxygen saturation to be in the low 60s.? EMS was called and the patient was BIBA to the ED where sat was 96% on NRBFM oxygen 5.2. In the ED, the patient was febrile to 102 degrees.? Labs were notable for normal WBC, creatinine of 3.2, potassium 5.2, BNP 1098, COVID positive.? Chest CT showed moderate-severe multifocal bilateral ground-glass infiltrates, consistent with COVID.? There was also extensive coronary calcifications and atherosclerotic disease of the thoracic aorta. The patient was started on Decadron and Lasix, and admitted to Medicine.? During his course on medicine, the patient had periods of bradycardia down into the 30s and even 20s.? His creatinine came down to 1.4.? Echo May 08 showed fairly normal left and right heart, with RVSP 43mm; aortic valve gradients were 23/14, with a calculated valve area of 2.47 cm2. Oxygenation and work of breathing worsened progressively, and on May 09, the patient was transferred to ICU for BiPAP.? He had periods of Mobitz type 1 second-degree AV block, with up to 7-second pauses.? Echo by Dr. Morgan showed normal left and right heart.? The patient was intubated on May 13.? Chest x-ray showed severe bilateral infiltrates consistent with COVID.? On that day, a temporary pacing wire was also placed.? The patient had poor ventilator synchrony, requiring intermittent boluses of NMB.? His creatinine kandi to 2.4.? BUN has risen as high as 133.? On May 15, he had several maroon stools with a 2 g drop in hemoglobin.? Eliquis and dexamethasone were stopped.? There was no further bleeding. On 05/17, the temp pacer wire was removed.? Mult urine cultures grew out a drew-sensitive serratia.? Treated with Levaquin. ?Last u/a on 05/26 was negative.? Had a temp spike on 05/26.? Cultures negative.? His RIJ CVL was removed and replaced with a left CVL.? Had been on empiric Bactrim and Levaquin.? The fever resolved. On May 29, he did a few hours of pressure support ventilation.? We were also able to turn the Precedex off, and the patient awoke and was appropriately interactive, although quite weak and sluggish.? Yesterday, he did 5-6 hours of PSV.? At the end, he fatigued, became tachycardic, and his minute volume kandi to > 10 L.? We rested him overnight on assist control. Early this morning, the patient started having mult nonconducted P waves, with Mobitz type 1 block.? HR didn?t slow very much though, and his BP was maintained.? I discussed the situation with Dr. Morgan.? Nothing to do.? Eventually will need a PPM. Central venous blood gas this morning showed 7.38/28/-6.? We dropped his AC rate down to 14.? We started him on Provigil this morning. ?We attempted a PSV trial at about noon and he failed rapidly, with tachypnea, tachycardia, and hypertension.? We went back on the Precedex and AC ventilation.? It was noticed that his peak airway pressures were into the high 40s, with plateau pressures in the high 20s.? The suction catheter passed easily through the endotracheal tube, but bag ventilation was more difficult than expected.? It was assumed that his endotracheal tube was becoming clogged.? Therefore I changed the endotracheal tube to a size 8.0 (separate procedure).? Peak inspiratory pressures dropped to the 30 range. Tmax 100.9.? Heart rate 87, sinus rhythm.? Blood pressure 148/76 off Levophed.? On AC 18/5 100/50%/+8, RR was 18, Ve 9L, ETCO2 27, sat 99%.? Still no JVD.? Normal exp phase.? Abdomen benign.? 1+ edema. LABORATORY DATA:? Below.? Notably, WBC down to 7.0, Hb down to 8.3.? Sodium is up to 149, BUN/creatinine are up to 106/1.6 (from 98/1.4 yesterday), and phosphorus is down to 3.8. ?Potassium is down sl to 5.4. Covid PCR sent 05/29 ?was still positive. Last chest x-ray on 05/26 showed stable diffuse bilateral interstitial and airspace disease. IMPRESSION: 1. COVID pneumonia.? Symptom onset date Apr 17 or earlier.? I?m surprised that his COVID swab is still positive.? May 29 we changed steroids to Solu-Medrol 40 mg bid, added aspirin, vitamin-D, thiamine, and atorvastatin. 2. Bilat pulmonary infiltrates with ARDS.? 2? to above. 3. Hypoxemic respiratory failure.? Secondary to above.? He looks like he?ll survive, the question is whether he?ll get away without a tracheostomy.? Provigil did not do anything today.? If he rapidly fails PSV trial tomorrow, would call for the tracheostomy. 4. Baseline CKD.? BUN/creat may have nadired.? Phos is still dropping.? Continuing the Lokelma.? (He was on Kayexelate at home.) 4. Baseline DM.? On insulin. 5. Baseline CHF.? BNP was 1098 on admission.? He was diuresed and the BNP came down to 106.? Last BNP was 523 on 05/13.? Down to 395 today.? Might try diuresis tomorrow. 6. ? Aortic stenosis.? Need to redo his echo to get a better look at the valve. 7. GI bleed.? No source identified.? The patient is back on DVT prophylaxis.? I have added back aspirin and steroids.? Also added bid PPI.? No further evidence of bleeding. 8. ID.? No clear evidence of sepsis or other bacterial infection.? All repeat cultures were negative.? No indication for antibiotics at this time. 9. Metabolic:? Hyperkalemic.? As above. 11. Hyperntremia.? Free water flushes not enough.? Need to start him on D5W. 12. Nutrition:? On goal rate Nepro. Critical care time (excluding procedures): ?60 min. Critical Care Time (minutes): 60 Physical Exam Vital Signs: Vital Signs: Last Vital Signs Temp 100 F 05/31/21 16:00 Pulse 87 05/31/21 16:00 Resp 20 05/31/21 16:00 BP 135/56 L 05/31/21 16:00 Pulse Ox 97 05/31/21 16:00 Oxygen Flow Rate 15 04/28/21 21:37 BMI result Body Mass Index 29.2 Objective Data Labs CBC & Chem 7: 05/31/21 05:25 05/31/21 05:25 Labs: Laboratory Results - last 24 hr 05/24/21 05/30/21 05/30/21 09:30 10:55 17:37 WBC RBC Hgb Hct MCV MCH MCHC RDW Plt Count MPV Absolute Nucleated RBC Nucleated RBC % (auto) VBG pH VBG pCO2 VBG pO2 VBG HCO3 VBG O2 Saturation VBG Base Excess Sodium Potassium Chloride Carbon Dioxide Anion Gap BUN Creatinine Estim Creat Clear Calc Estimated GFR POC Glucose 152 H Random Glucose Calcium Phosphorus Magnesium Urine Color Urine Appearance Urine pH Ur Specific [place] Urine Protein Urine Glucose (UA) Urine Ketones Urine Blood Urine Nitrite Ur Leukocyte Esterase Urine RBC Urine WBC Ur Squamous Epith Cells Amorphous Sediment Urine Bacteria Hyaline Casts Urine Mucus Urine Osmolality 417 L.pneumophila IgM Ab <1:256 05/30/21 05/31/21 05/31/21 20:18 00:36 00:50 WBC RBC Hgb Hct MCV MCH MCHC RDW Plt Count MPV Absolute Nucleated RBC Nucleated RBC % (auto) VBG pH VBG pCO2 VBG pO2 VBG HCO3 VBG O2 Saturation VBG Base Excess Sodium Potassium Chloride Carbon Dioxide Anion Gap BUN Creatinine Estim Creat Clear Calc Estimated GFR POC Glucose 122 H 166 H Random Glucose Calcium Phosphorus Magnesium Urine Color YELLOW Urine Appearance CLEAR Urine pH 5.5 Ur Specific [place] 1.020 Urine Protein 1+ H Urine Glucose (UA) NEG Urine Ketones NEG Urine Blood 2+ H Urine Nitrite NEG Ur Leukocyte Esterase NEG Urine RBC 1-4 Urine WBC 0-2 Ur Squamous Epith Cells TRACE Amorphous Sediment 1+ Urine Bacteria NONE Hyaline Casts 0-2 Urine Mucus TRACE Urine Osmolality L.pneumophila IgM Ab 05/31/21 05/31/21 05/31/21 05:25 05:25 05:29 WBC 9.1 RBC 2.92 L Hgb 8.3 L Hct 27.4 L MCV 93.8 MCH 28.4 MCHC 30.3 L RDW 17.4 H Plt Count 227 D MPV 11.5 Absolute Nucleated RBC 0.030 H Nucleated RBC % (auto) 0.3 H VBG pH 7.38 VBG pCO2 28 VBG pO2 43 VBG HCO3 17 L VBG O2 Saturation 73.0 VBG Base Excess -6.6 Sodium 149 H Potassium 5.4 H Chloride 122 H Carbon Dioxide 21 L Anion Gap 11 L BUN 106 H Creatinine 1.60 H Estim Creat Clear Calc 55.0 Estimated GFR 43 POC Glucose Random Glucose 164 H Calcium 8.8 Phosphorus 3.8 Magnesium 2.3 Urine Color Urine Appearance Urine pH Ur Specific [place] Urine Protein Urine Glucose (UA) Urine Ketones Urine Blood Urine Nitrite Ur Leukocyte Esterase Urine RBC Urine WBC Ur Squamous Epith Cells Amorphous Sediment Urine Bacteria Hyaline Casts Urine Mucus Urine Osmolality L.pneumophila IgM Ab 05/31/21 11:44 WBC RBC Hgb Hct MCV MCH MCHC RDW Plt Count MPV Absolute Nucleated RBC Nucleated RBC % (auto) VBG pH VBG pCO2 VBG pO2 VBG HCO3 VBG O2 Saturation VBG Base Excess Sodium Potassium Chloride Carbon Dioxide Anion Gap BUN Creatinine Estim Creat Clear Calc Estimated GFR POC Glucose 109 Random Glucose Calcium Phosphorus Magnesium Urine Color Urine Appearance Urine pH Ur Specific [place] Urine Protein Urine Glucose (UA) Urine Ketones Urine Blood Urine Nitrite Ur Leukocyte Esterase Urine RBC Urine WBC Ur Squamous Epith Cells Amorphous Sediment Urine Bacteria Hyaline Casts Urine Mucus Urine Osmolality L.pneumophila IgM Ab Microbiology Microbiology Results: Microbiology 05/26/21 06:44 Blood - Venous Blood Culture - Final No growth after 5 days. 05/26/21 06:44 Blood - Venous Blood Culture - Final No growth after 5 days. 05/28/21 11:25 Sputum - Suctioned Gram Stain - Final 05/28/21 11:25 Sputum - Suctioned Sputum Culture - Final 05/22/21 11:32 Urine Catheterized - Camacho Catheter Urine Culture - Final Serratia marcescens 05/19/21 16:47 Blood - Venous Blood Culture - Final No growth after 5 days. 05/19/21 16:49 Blood - Venous Blood Culture - Final No growth after 5 days. 05/22/21 15:44 Sputum - Suctioned Gram Stain - Final 05/22/21 15:44 Sputum - Suctioned Sputum Culture - Final 05/15/21 08:25 Blood - Venous Blood Culture - Final No growth after 5 days. 05/15/21 08:25 Blood - Venous Blood Culture - Final No growth after 5 days. 05/17/21 15:20 Sputum - Suctioned Gram Stain - Final 05/17/21 15:20 Sputum - Suctioned Sputum Culture - Final 05/13/21 Unknown Urine Catheterized - Camacho Catheter Urine Culture - Final Serratia marcescens 04/28/21 22:17 Blood - Venous Blood Culture - Final No growth after 5 days. 04/28/21 22:17 Blood - Venous Blood Culture - Final No growth after 5 days. Quality Stroke Does the patient have a stroke diagnosis?: No VTE Prior VTE?: No VTE Risk Level:: Medical - moderate - high VTE Device Contraindication: Treatment Not Indicated VTE Drug Contraindication: N/A - Med Ordered Critical Care Time Critical Care Time (minutes): 60
[2021-05-31 18:00] LABS: Glucose, Whole Blood 165 mg/dL (60-115)
[2021-05-31] MEDS: Ketamine HCl/NS 50 MG/5 ML SYRINGE IVPUSH (18:23)
[2021-05-31] MEDS: propofoL 200 MG/20 ML VIAL 30 MG IVPUSH (18:23)
[2021-05-31] MEDS: Rocuronium Bromide 50 MG/5 ML VIAL 30 MG IVPUSH (18:23)
--- NOTE | 2021-05-31 18:47 | W.PM.CCHP ---
Procedures Date of Service Date of Service: 05/31/21 Intubation Intubation Comments: PROCEDURE: Tracheal re-intubation. INDICATION: Endotracheal tube obstruction secondary to retained secretions. ANESTHESIA: General intravenous anesthesia with ketamine, propofol, and rocuronium. PROCEDURE: The patient was preoxygenated with 90% FiO2 on the ventilator. After induction of anesthesia with the above agents, the ventilator circuit was disconnected and a tube changer/Eschmann stylette was advanced into the trachea through the in-situ endotracheal tube. The in-situ tube was removed and the new 8.0 endotracheal tube was advanced over the tube changer into the trachea under direct laryngoscopy vision via a Damon 3 blade. The endotracheal tube was secured at 24 cm at the upper lip. Postprocedure chest x-ray showed the tube significantly above the cariina. Therefore the endotracheal tube was advanced 1 cm. The patient tolerated the procedure well without complications. Consent for Procedure: Emergent-no informed consent obtained
[2021-05-31] MEDS: Atorvastatin Calcium 80 MG TABLET PO (20:14)
[2021-05-31] MEDS: Insulin Glargine,Hum.rec.anlog 100 UNIT/ML 10 ML VIAL 24 UNIT SUBCUT (20:14)
[2021-05-31 22:02] LABS: Legionella Ag Urine Not Detected (Not Detected)
[2021-05-31 23:23] LABS: Glucose, Whole Blood 118 mg/dL (60-115)
[2021-06-01] VITALS (30 sets, daily range): BP systolic 95–159; BP diastolic 51–102; PULSE 54–107; RESP 14–26; TEMP 34.9–37; O2SAT 6–99; BMI 29.6
[2021-06-01] MEDS: dexmedeTOMIDidine HCL/NS 400 MCG/100 ML INFUS..BTL 31.08 MCG IVCONT ×5 (02:48→15:07)
[2021-06-01] MEDS: fentaNYL citrate/NS 1,000 MCG/100 ML PLAST..BAG 5 MCG IVCONT ×2 (02:48→21:16)
[2021-06-01] MEDS: Metoclopramide HCl 10 MG/2 ML VIAL 5 MG IVPUSH ×4 (04:21→21:23)
[2021-06-01] MEDS: Heparin Sodium,Porcine 5,000 UNIT/ML VIAL 5000 UNIT SUBCUT ×3 (04:21→21:16)
[2021-06-01 05:45] LABS: Venous Blood Gas Refer to POC result
[2021-06-01 05:45] LABS: VBG Base Excess -2.9 mmol/L; VBG HCO3 21 mmol/L (22-26); VBG pCO2 37 mmHg; VBG pH 7.36 (7.32-7.43); VBG pO2 84 mmHg
[2021-06-01 05:58] LABS: Hemoglobin 8.6 g/dl (14.0-18.0); Mean Corpuscular HGB Conc 30.7 g/dl (31.0-36.0); Mean Corpuscular Volume 94.3 fL (80.0-98.0); Mean Platelet Volume 11.8 fL (9.4-12.4); NRBC Pct Auto 0.3 /100WBC (0.0-0.2); Platelet Count 201 X10*3/uL (160-400); Red Blood Count 2.97 X10*6/uL (4.60-5.80); Red Cell Distribution Width 18.1 % (11.0-16.0)
[2021-06-01 06:11] LABS: Anion Gap 12 (12-20); Blood Urea Nitrogen 92 mg/dL (9-16); Calcium 9.2 mg/dL (8.4-10.2); Carbon Dioxide 22 mmol/L (22-29); Chloride 122 mmol/L (96-108); Creatinine Clr Calc Pharmacy 71.6; Estimated Glomerular Filt Rate 59; Glucose Random 216 mg/dL (60-115); Phosphorus 3.7 mg/dL (2.7-4.5); Potassium 5.1 mmol/L (3.3-5.1); Sodium 151 mmol/L (135-145)
[2021-06-01] MEDS: Insulin Lispro 100 UNIT/ML 3 ML VIAL SUBCUT ×3 (06:21→18:15)
[2021-06-01] MEDS: Dextrose 5 % 1,000 ML 100 ML IVCONT ×2 (06:22→15:24)
[2021-06-01 06:57] LABS: Glucose, Whole Blood 186 mg/dL (60-115)
[2021-06-01] MEDS: 0.9 % Sodium Chloride Flush 3 ML SYRINGE IVFLUSH ×2 (08:30→15:12)
[2021-06-01] MEDS: methylPREDNISolone Sod Succ 40 MG/ML VIAL IVPUSH ×2 (08:30→21:20)
[2021-06-01] MEDS: Famotidine/PF 20 MG/2 ML VIAL IVPUSH (08:32)
[2021-06-01] MEDS: Aspirin 81 MG TAB.CHEW 324 MG NG-TUBE (08:32)
[2021-06-01] MEDS: modafiniL 100 MG TABLET 200 MG PO (08:33)
[2021-06-01] MEDS: Chlorhexidine Gluc Oral Rinse 15 ML MOUTHWASH BUCCAL ×3 (08:33→21:16)
[2021-06-01] MEDS: Nystatin Powder 15 GM BOTTLE 1 APPL TOPICAL ×3 (08:33→21:21)
[2021-06-01] MEDS: Cholecalciferol (Vitamin D3) 25 MCG TABLET 50 MCG NG-TUBE (08:33)
[2021-06-01] MEDS: Thiamine HCL 200 MG in 0.9 % Sodium Chloride 100 ML 204 MG IV (08:36)
--- NOTE | 2021-06-01 09:49 | PM.CCPN ---
Subjective Subjective Date of Service: 06/01/21 Interval History: Mr. Roberson was transferred to ICU on May 09 bec of progressive hypoxemic respiratory failure secondary to COVID pneumonia. The patient is a 66-year-old male with past medical history of HTN, diabetes, CKD (baseline creatinine about 2.1), and CHF.? He is on furosemide and Kayexalate and insulin at home. HISTORY OF PRESENT ILLNESS:? The patient was diagnosed with COVID on April 19 after few days flu like symptoms.? (My estimation of symptom onset date:? April 17, or earlier.)? Patient had been feeling fairly well up until April 28, when he developed shortness of breath and his found his oxygen saturation to be in the low 60s.? EMS was called and the patient was BIBA to the ED where sat was 96% on NRBFM oxygen 5.2. See yesterday?s note for full hospital course details. Last three days we?ve been doing PSV trials.? On May 30 he lasted 5-6 hours, but yesterday he failed early.? When we turn the Precedex sedation off, he wakes up and becomes more less interactive but he is very sluggish and very weak.? Yesterday I started him on Provigil, with no discernible affect.? Yesterday we had to change his endotracheal tube because of secretion concretions. Heart rhythm this morning is sinus with frequent PACs. ?Central venous blood gas this morning showed 7.36/37/-2.? He is on Precedex 1.2 mics and fentanyl 50 mics. ?Heart rate 67, blood pressure 124/69. ?He is afebrile.? On AC 14/500/35%/+8, RR was 20, Ve 11L, PIP 26 (down from high 40s), ETCO2 23, sat 89%.? Still no JVD.? Normal exp phase.? Abdomen benign.? Trace edema. We turned his Precedex off.? Patient woke up and followed commands very very weakly.? Motor function is symmetrical on both sides, but very weak, can barely squeeze my hand.? On pressure support with PSV 20 cm, respiratory rate was about 20, minute volume was 11 L. LABORATORY DATA:? Below.? Notably, Sodium is up to 151, BUN/creatinine are down, potassium is down, and phosphorus is down. Covid PCR sent 05/29 ?was still positive. Last chest x-ray done yesterday after the tracheal tube change shows stable diffuse bilateral interstitial and airspace disease, unchanged from the previous film. IMPRESSION: 1. COVID pneumonia.? Symptom onset date Apr 17 or earlier.? I?m surprised that his COVID swab is still positive.? May 29 we changed steroids to Solu-Medrol 40 mg bid, added aspirin, vitamin-D, thiamine, and atorvastatin. 2. Bilat pulmonary infiltrates with ARDS.? 2? to above. 3. Hypoxemic respiratory failure.? Secondary to above.? Oxygenation is definitely improving.? He looks like he?ll survive, the question was whether he?ll get away without a tracheostomy.? Provigil hasn?t done anything.? He?s just too weak.? I?ve called Dr. Patel to schedule a tracheostomy.? That will be sometime next week.? I?ll call the patient?s . 4. Baseline CKD.? BUN/creat are going down further and potassium is now coming down.? Continuing the Lokelma.? (He was on Kayexelate at home.) 4. Baseline DM.? On insulin. 5. Baseline CHF.? BNP was 1098 on admission.? He was diuresed and the BNP came down to 106.? Last BNP was 523 on 05/13.? Down to 395 today.? No indication to trial diuresis. 6. ? Aortic stenosis.? Need to redo his echo to get a better look at the valve. 7. GI bleed.? No source identified.? The patient is back on DVT prophylaxis.? I have added back aspirin and steroids.? Also added bid PPI.? No further evidence of bleeding. 8. ID.? No clear evidence of sepsis or other bacterial infection.? All repeat cultures were negative.? No indication for antibiotics at this time. 9. Metabolic:? Hyperkalemic.? As above. 11. Hyperntremia.? Free water flushes not enough.? Started him on D5W. 12. Nutrition:? On goal rate Nepro. Critical care time: ?50+ min. Critical Care Time (minutes): 50 Physical Exam Vital Signs: Vital Signs: Last Vital Signs Temp 98.4 F 06/01/21 08:00 Pulse 68 06/01/21 09:00 Resp 14 06/01/21 09:00 BP 111/82 06/01/21 09:00 Pulse Ox 90 L 06/01/21 09:00 Oxygen Flow Rate 15 04/28/21 21:37 BMI result Body Mass Index 29.6 Objective Data Labs CBC & Chem 7: 06/01/21 05:22 06/01/21 05:22 Labs: Laboratory Results - last 24 hr 05/24/21 05/31/21 05/31/21 11:59 11:44 17:57 WBC RBC Hgb Hct MCV MCH MCHC RDW Plt Count MPV Absolute Nucleated RBC Nucleated RBC % (auto) VBG pH VBG pCO2 VBG pO2 VBG HCO3 VBG O2 Saturation VBG Base Excess Sodium Potassium Chloride Carbon Dioxide Anion Gap BUN Creatinine Estim Creat Clear Calc Estimated GFR POC Glucose 109 165 H Random Glucose Calcium Phosphorus Ur L.pneumophila Ag Not Detected 05/31/21 06/01/21 06/01/21 23:19 05:22 05:22 WBC 8.0 RBC 2.97 L Hgb 8.6 L Hct 28.0 L MCV 94.3 MCH 29.0 MCHC 30.7 L RDW 18.1 H Plt Count 201 MPV 11.8 Absolute Nucleated RBC 0.020 H Nucleated RBC % (auto) 0.3 H VBG pH VBG pCO2 VBG pO2 VBG HCO3 VBG O2 Saturation VBG Base Excess Sodium 151 H Potassium 5.1 Chloride 122 H Carbon Dioxide 22 Anion Gap 12 BUN 92 H Creatinine 1.23 Estim Creat Clear Calc 71.6 Estimated GFR 59 POC Glucose 118 H Random Glucose 216 H Calcium 9.2 Phosphorus 3.7 Ur L.pneumophila Ag 06/01/21 06/01/21 05:38 06:16 WBC RBC Hgb Hct MCV MCH MCHC RDW Plt Count MPV Absolute Nucleated RBC Nucleated RBC % (auto) VBG pH 7.36 VBG pCO2 37 VBG pO2 84 VBG HCO3 21 L VBG O2 Saturation 96.0 VBG Base Excess -2.9 Sodium Potassium Chloride Carbon Dioxide Anion Gap BUN Creatinine Estim Creat Clear Calc Estimated GFR POC Glucose 186 H Random Glucose Calcium Phosphorus Ur L.pneumophila Ag Microbiology Microbiology Results: Microbiology 05/30/21 16:15 Blood - Venous Blood Culture - Preliminary No growth after 24 hours. 05/30/21 16:15 Blood - Venous Blood Culture - Preliminary No growth after 24 hours. 05/26/21 06:44 Blood - Venous Blood Culture - Final No growth after 5 days. 05/26/21 06:44 Blood - Venous Blood Culture - Final No growth after 5 days. 05/28/21 11:25 Sputum - Suctioned Gram Stain - Final 05/28/21 11:25 Sputum - Suctioned Sputum Culture - Final 05/22/21 11:32 Urine Catheterized - Camacho Catheter Urine Culture - Final Serratia marcescens 05/19/21 16:47 Blood - Venous Blood Culture - Final No growth after 5 days. 05/19/21 16:49 Blood - Venous Blood Culture - Final No growth after 5 days. 05/22/21 15:44 Sputum - Suctioned Gram Stain - Final 05/22/21 15:44 Sputum - Suctioned Sputum Culture - Final 05/15/21 08:25 Blood - Venous Blood Culture - Final No growth after 5 days. 05/15/21 08:25 Blood - Venous Blood Culture - Final No growth after 5 days. 05/17/21 15:20 Sputum - Suctioned Gram Stain - Final 05/17/21 15:20 Sputum - Suctioned Sputum Culture - Final 05/13/21 Unknown Urine Catheterized - Camacho Catheter Urine Culture - Final Serratia marcescens 04/28/21 22:17 Blood - Venous Blood Culture - Final No growth after 5 days. 04/28/21 22:17 Blood - Venous Blood Culture - Final No growth after 5 days. Quality Stroke Does the patient have a stroke diagnosis?: No VTE Prior VTE?: No VTE Risk Level:: Medical - moderate - high VTE Device Contraindication: Treatment Not Indicated VTE Drug Contraindication: N/A - Med Ordered Critical Care Time Critical Care Time (minutes): 60
--- NOTE | 2021-06-01 11:17 | MHC.CLN ---
F/U NEPRO TUBE FEEDING RUNNING AT 30 ML/HOUR. MAX GOAL RATE IS 35 ML/HOUR. PATIENT TOLERATING CURRENT TUBE FEEDING.
[2021-06-01 11:39] LABS: Glucose, Whole Blood 223 mg/dL (60-115)
--- NOTE | 2021-06-01 11:50 | PM.PNNEP ---
Subjective Subjective Date of Service: 06/01/21 Principal diagnosis: COVID, JÚNIOR, CKD Interval history: Seen and examiend, case d/w ICU team Physical Exam Vital Signs: Vital Signs: Last Vital Signs Temp 98.4 F 06/01/21 08:00 Pulse 67 06/01/21 11:00 Resp 19 06/01/21 11:00 BP 103/55 L 06/01/21 11:00 Pulse Ox 94 06/01/21 11:00 Oxygen Flow Rate 15 04/28/21 21:37 BMI result Body Mass Index 29.6 Const: Other: Intubated General: cooperative, comfortable, no acute distress and ill appearing Orientation/consciousness: patient oriented x3 HENMT: Head: Yes normocephalic and Yes atraumatic Eyes: General: appearance normal, both eyes and all related structures Pupils: Equal, round and reactive pupils present EOM: EOMs intact bilaterally Neck: Neck: Yes supple Chest: Chest palpation & inspection: No rash Resp: Effort & Inspection: normal respiratory effort Auscultation: diminished lung sounds Cardio: Palpation: no palpable S3 Rate: regular rate Rhythm: regular rhythm Heart sounds: S1 normal heart sound present and S2 normal heart sound present GI: Palpation (GI): Soft to palpation and nontender Auscultation: normal bowel sounds Skin: General skin exam: no rashes or lesions noted Neuro: Other: Sedated General: patient oriented x3 Cranial nerves: Yes Equal, round and reactive pupils present Cognition (Neuro): normal cognition Motor exam (neuro): No Asterixis during motor activity present Extrem: General: Yes normal to inspection Objective Data Labs CBC & Chem 7: 06/01/21 05:22 06/01/21 05:22 Labs: Laboratory Results - last 24 hr 05/24/21 05/31/21 05/31/21 11:59 17:57 23:19 WBC RBC Hgb Hct MCV MCH MCHC RDW Plt Count MPV Absolute Nucleated RBC Nucleated RBC % (auto) VBG pH VBG pCO2 VBG pO2 VBG HCO3 VBG O2 Saturation VBG Base Excess Sodium Potassium Chloride Carbon Dioxide Anion Gap BUN Creatinine Estim Creat Clear Calc Estimated GFR POC Glucose 165 H 118 H Random Glucose Calcium Phosphorus Ur L.pneumophila Ag Not Detected 06/01/21 06/01/21 06/01/21 05:22 05:22 05:38 WBC 8.0 RBC 2.97 L Hgb 8.6 L Hct 28.0 L MCV 94.3 MCH 29.0 MCHC 30.7 L RDW 18.1 H Plt Count 201 MPV 11.8 Absolute Nucleated RBC 0.020 H Nucleated RBC % (auto) 0.3 H VBG pH 7.36 VBG pCO2 37 VBG pO2 84 VBG HCO3 21 L VBG O2 Saturation 96.0 VBG Base Excess -2.9 Sodium 151 H Potassium 5.1 Chloride 122 H Carbon Dioxide 22 Anion Gap 12 BUN 92 H Creatinine 1.23 Estim Creat Clear Calc 71.6 Estimated GFR 59 POC Glucose Random Glucose 216 H Calcium 9.2 Phosphorus 3.7 Ur L.pneumophila Ag 06/01/21 06/01/21 06:16 11:36 WBC RBC Hgb Hct MCV MCH MCHC RDW Plt Count MPV Absolute Nucleated RBC Nucleated RBC % (auto) VBG pH VBG pCO2 VBG pO2 VBG HCO3 VBG O2 Saturation VBG Base Excess Sodium Potassium Chloride Carbon Dioxide Anion Gap BUN Creatinine Estim Creat Clear Calc Estimated GFR POC Glucose 186 H 223 H Random Glucose Calcium Phosphorus Ur L.pneumophila Ag Microbiology Microbiology Results: Microbiology 05/31/21 00:50 Urine Catheterized - Camacho Catheter Urine Culture - Preliminary Culture in progress. 05/30/21 16:15 Blood - Venous Blood Culture - Preliminary No growth after 24 hours. 05/30/21 16:15 Blood - Venous Blood Culture - Preliminary No growth after 24 hours. 05/26/21 06:44 Blood - Venous Blood Culture - Final No growth after 5 days. 05/26/21 06:44 Blood - Venous Blood Culture - Final No growth after 5 days. 05/28/21 11:25 Sputum - Suctioned Gram Stain - Final 05/28/21 11:25 Sputum - Suctioned Sputum Culture - Final 05/22/21 11:32 Urine Catheterized - Camacho Catheter Urine Culture - Final Serratia marcescens 05/19/21 16:47 Blood - Venous Blood Culture - Final No growth after 5 days. 05/19/21 16:49 Blood - Venous Blood Culture - Final No growth after 5 days. 05/22/21 15:44 Sputum - Suctioned Gram Stain - Final 05/22/21 15:44 Sputum - Suctioned Sputum Culture - Final 05/15/21 08:25 Blood - Venous Blood Culture - Final No growth after 5 days. 05/15/21 08:25 Blood - Venous Blood Culture - Final No growth after 5 days. 05/17/21 15:20 Sputum - Suctioned Gram Stain - Final 05/17/21 15:20 Sputum - Suctioned Sputum Culture - Final 05/13/21 Unknown Urine Catheterized - Camacho Catheter Urine Culture - Final Serratia marcescens 04/28/21 22:17 Blood - Venous Blood Culture - Final No growth after 5 days. 04/28/21 22:17 Blood - Venous Blood Culture - Final No growth after 5 days. Procedures Date of Service Date of Service: 06/01/21 Assessment & Plan Assessment and plan (1) JÚNIOR (acute kidney injury): Status: Acute Assessment and Plan: 1. JÚNIOR: Scr cont decr 2. CKD 3: bsl SCr 1.5-2.0; sees Dr Feldman as outpt 3. Incr Bun/Cr: d/t steroids; IV dry ? 4. COVID Resp failure 5. HyperK: controlled on Lokelma 6. HyperNa; FWD getting Fwater replacement REC: cont to use lokelma and track K level; rec switch to lovenox as less prone to cause hyperK if hyperK becomes a problem again; also consider add florinef 0.1 bid to help incr urine K excretion and/or iv lasix if BP/intravasc vol can tolerate and hyperK becomes a problem again Will follow with team Time Spent With Patient Time: Total time spent is greater than 50% in coordination of care (as documented) at patient's floor/unit and/or counseling patient: Progress Note: Quality Stroke Does the patient have a stroke diagnosis?: No
[2021-06-01 12:43] LABS: D Dimer High Sensitivity 2978 NG/ML
--- NOTE | 2021-06-01 15:50 | MHC.CM.ED ---
Patient remains in tubated/vented in ICU. Per Dr Flores, weaning trials will be attempted today. If unsuccessful, patient will need a trach. Continue to monitor for d/c needs.
[2021-06-01 18:11] LABS: Glucose, Whole Blood 303 mg/dL (60-115)
--- NOTE | 2021-06-01 18:43 | PC.NURSE ---
vss, afebrile, SR with 1 degree on tele. Pt sedated with precedex and fentanyl, nods yes/no, able to follow simple commands- severe weakness. Precedex turned of at 1525 to attempt pressure support- pt tiring easy, returned to origional vent settings. Pt remains of precedex, awakening easy, nods yes when asked if comfortable. u/0 WNL, pt repo q2hr, dsg changed on buttocks. Tube feed increased to max rate of 35, tolerated well, minimal residuals. 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
[2021-06-01] MEDS: Thiamine HCL 200 MG in 0.9 % Sodium Chloride 100 ML 100 MG IV (21:17)
[2021-06-01] MEDS: Insulin Glargine,Hum.rec.anlog 100 UNIT/ML 10 ML VIAL 24 UNIT SUBCUT (21:20)
[2021-06-01] MEDS: Atorvastatin Calcium 80 MG TABLET PO (21:21)
[2021-06-02] VITALS (34 sets, daily range): BP systolic 63–179; BP diastolic 6–77; PULSE 38–97; RESP 12–28; TEMP 34.7–37.2; O2SAT 82–100; BMI 29.9
[2021-06-02] MEDS: Insulin Lispro 100 UNIT/ML 3 ML VIAL SUBCUT ×5 (00:23→23:35)
[2021-06-02 00:36] LABS: Glucose, Whole Blood 252 mg/dL (60-115)
[2021-06-02] MEDS: Dextrose 5 % 1,000 ML 100 ML IVCONT (01:46)
[2021-06-02] MEDS: dexmedeTOMIDidine HCL/NS 400 MCG/100 ML INFUS..BTL 25.9 MCG IVCONT (01:46)
[2021-06-02] MEDS: Metoclopramide HCl 10 MG/2 ML VIAL 5 MG IVPUSH ×4 (02:55→22:15)
[2021-06-02] MEDS: Heparin Sodium,Porcine 5,000 UNIT/ML VIAL 5000 UNIT SUBCUT ×3 (02:55→19:29)
[2021-06-02] MEDS: fentaNYL citrate/NS 1,000 MCG/100 ML PLAST..BAG 10 MCG IVCONT (04:42)
[2021-06-02 05:39] LABS: VBG Base Excess -2.3 mmol/L; VBG HCO3 22 mmol/L (22-26); VBG pCO2 39 mmHg; VBG pH 7.36 (7.32-7.43); VBG pO2 48 mmHg
[2021-06-02 05:58] LABS: Glucose, Whole Blood 240 mg/dL (60-115)
[2021-06-02 06:07] LABS: Hematocrit 26.8 % (42.0-52.0); Mean Corpuscular HGB Conc 29.9 g/dl (31.0-36.0); Mean Corpuscular Hemoglobin 28.4 pg (27.0-33.0); Mean Platelet Volume 11.4 fL (9.4-12.4); NRBC Pct Auto 0.2 /100WBC (0.0-0.2); Platelet Count 190 X10*3/uL (160-400); Red Blood Count 2.82 X10*6/uL (4.60-5.80); Red Cell Distribution Width 17.5 % (11.0-16.0); White Blood Count 9.1 X10*3/uL (4.8-10.8)
[2021-06-02 06:31] LABS: Anion Gap 9 (12-20); Blood Urea Nitrogen 78 mg/dL (9-16); Calcium 8.8 mg/dL (8.4-10.2); Carbon Dioxide 24 mmol/L (22-29); Chloride 115 mmol/L (96-108); Creatinine Clr Calc Pharmacy 89.1; Estimated Glomerular Filt Rate > 60; Glucose Random 282 mg/dL (60-115); Magnesium 1.8 mg/dL (1.6-2.6); Phosphorus 3.5 mg/dL (2.7-4.5); Potassium 4.8 mmol/L (3.3-5.1); Sodium 143 mmol/L (135-145)
[2021-06-02] MEDS: propofoL 200 MG/20 ML VIAL 40 MG IVPUSH (07:15)
[2021-06-02] MEDS: propofoL 1,000 MG/100 ML VIAL 15.06 MG IVCONT (07:15)
[2021-06-02 08:53] LABS: Venous Blood Gas Refer to POC result
--- NOTE | 2021-06-02 09:01 | PM.PNNEP ---
Subjective Subjective Date of Service: 06/02/21 Principal diagnosis: COVID, JÚNIOR, CKD Interval history: seen and examined vented Physical Exam Vital Signs: Vital Signs: Last Vital Signs Temp 98.6 F 06/02/21 08:00 Pulse 47 L 06/02/21 08:00 Resp 12 06/02/21 07:00 BP 160/61 H 06/02/21 08:34 Pulse Ox 99 06/02/21 08:00 Oxygen Flow Rate 15 04/28/21 21:37 BMI result Body Mass Index 29.9 Const: General: ill appearing HENMT: Head: Yes normocephalic and Yes atraumatic Neck: Neck: Yes supple Resp: Auscultation: diminished lung sounds Cardio: Heart sounds: S1 normal heart sound present and S2 normal heart sound present GI: Palpation (GI): Soft to palpation and nontender Extrem: General: Yes normal to inspection Objective Data Labs CBC & Chem 7: 06/02/21 05:30 06/02/21 05:30 Labs: Laboratory Results - last 24 hr 06/01/21 06/01/21 06/01/21 11:36 12:24 18:07 WBC RBC Hgb Hct MCV MCH MCHC RDW Plt Count MPV Absolute Nucleated RBC Nucleated RBC % (auto) D-Dimer High Sensitivty 2978 VBG pH VBG pCO2 VBG pO2 VBG HCO3 VBG O2 Saturation VBG Base Excess Sodium Potassium Chloride Carbon Dioxide Anion Gap BUN Creatinine Estim Creat Clear Calc Estimated GFR POC Glucose 223 H 303 H Random Glucose Calcium Phosphorus Magnesium 06/02/21 06/02/21 06/02/21 00:19 05:30 05:30 WBC 9.1 RBC 2.82 L Hgb 8.0 L Hct 26.8 L MCV 95.0 MCH 28.4 MCHC 29.9 L RDW 17.5 H Plt Count 190 MPV 11.4 Absolute Nucleated RBC 0.020 H Nucleated RBC % (auto) 0.2 D-Dimer High Sensitivty VBG pH VBG pCO2 VBG pO2 VBG HCO3 VBG O2 Saturation VBG Base Excess Sodium 143 Potassium 4.8 Chloride 115 H Carbon Dioxide 24 Anion Gap 9 L BUN 78 H Creatinine 1.00 Estim Creat Clear Calc 89.1 Estimated GFR > 60 POC Glucose 252 H Random Glucose 282 H Calcium 8.8 Phosphorus 3.5 Magnesium 1.8 06/02/21 06/02/21 05:32 05:33 WBC RBC Hgb Hct MCV MCH MCHC RDW Plt Count MPV Absolute Nucleated RBC Nucleated RBC % (auto) D-Dimer High Sensitivty VBG pH 7.36 VBG pCO2 39 VBG pO2 48 VBG HCO3 22 VBG O2 Saturation 73.0 VBG Base Excess -2.3 Sodium Potassium Chloride Carbon Dioxide Anion Gap BUN Creatinine Estim Creat Clear Calc Estimated GFR POC Glucose 240 H Random Glucose Calcium Phosphorus Magnesium Microbiology Microbiology Results: Microbiology 05/30/21 16:15 Blood - Venous Blood Culture - Preliminary No growth after 48 hours. 05/30/21 16:15 Blood - Venous Blood Culture - Preliminary No growth after 48 hours. 05/31/21 00:50 Urine Catheterized - Camacho Catheter Urine Culture - Preliminary Culture in progress. 05/26/21 06:44 Blood - Venous Blood Culture - Final No growth after 5 days. 05/26/21 06:44 Blood - Venous Blood Culture - Final No growth after 5 days. 05/28/21 11:25 Sputum - Suctioned Gram Stain - Final 05/28/21 11:25 Sputum - Suctioned Sputum Culture - Final 05/22/21 11:32 Urine Catheterized - Camacho Catheter Urine Culture - Final Serratia marcescens 05/19/21 16:47 Blood - Venous Blood Culture - Final No growth after 5 days. 05/19/21 16:49 Blood - Venous Blood Culture - Final No growth after 5 days. 05/22/21 15:44 Sputum - Suctioned Gram Stain - Final 05/22/21 15:44 Sputum - Suctioned Sputum Culture - Final 05/15/21 08:25 Blood - Venous Blood Culture - Final No growth after 5 days. 05/15/21 08:25 Blood - Venous Blood Culture - Final No growth after 5 days. 05/17/21 15:20 Sputum - Suctioned Gram Stain - Final 05/17/21 15:20 Sputum - Suctioned Sputum Culture - Final 05/13/21 Unknown Urine Catheterized - Camacho Catheter Urine Culture - Final Serratia marcescens 04/28/21 22:17 Blood - Venous Blood Culture - Final No growth after 5 days. 04/28/21 22:17 Blood - Venous Blood Culture - Final No growth after 5 days. Procedures Date of Service Date of Service: 06/02/21 Assessment & Plan Assessment and plan (1) CKD (chronic kidney disease) stage 3, GFR 30-59 ml/min: Status: Acute (2) SARS-CoV-2 positive: Status: Acute Assessment and Plan: kidney function stable JÚNIOR due to compromised kidney perfusion in the setting of SARS COV 2 resolved known CKD 3 due to DM/HTN followed by Dr Gaston MORENO sodium zirconium as needed follow kidney function and electrolytes Time Spent With Patient Time: Total time spent is greater than 50% in coordination of care (as documented) at patient's floor/unit and/or counseling patient: Progress Note: Quality Stroke Does the patient have a stroke diagnosis?: No
--- NOTE | 2021-06-02 09:53 | MHC.CLN ---
F/U TUBE FEEDING RUNNING AT [facility] 35 ML PER HOUR, MAX GOAL RATE. PATIENT TOLERATING TUBE FEEDING. FOLLOWING WITH TEAM.
[2021-06-02] MEDS: methylPREDNISolone Sod Succ 40 MG/ML VIAL IVPUSH ×2 (09:54→19:29)
[2021-06-02] MEDS: Chlorhexidine Gluc Oral Rinse 15 ML MOUTHWASH BUCCAL ×3 (09:54→19:29)
[2021-06-02] MEDS: Aspirin 81 MG TAB.CHEW 324 MG NG-TUBE (09:54)
[2021-06-02] MEDS: Famotidine/PF 20 MG/2 ML VIAL IVPUSH (09:54)
[2021-06-02] MEDS: Cholecalciferol (Vitamin D3) 25 MCG TABLET 50 MCG NG-TUBE (09:54)
[2021-06-02] MEDS: Nystatin Powder 15 GM BOTTLE 1 APPL TOPICAL (09:55)
[2021-06-02] MEDS: 0.9 % Sodium Chloride Flush 3 ML SYRINGE IVFLUSH ×3 (09:55→23:29)
[2021-06-02] MEDS: Thiamine HCL 200 MG in 0.9 % Sodium Chloride 100 ML 204 MG IV (09:55)
[2021-06-02] MEDS: propofoL 1,000 MG/100 ML VIAL 24.1 MG IVCONT ×3 (10:58→18:01)
[2021-06-02] MEDS: Dextrose 5 % 1,000 ML 50 ML IVCONT (11:21)
[2021-06-02 11:22] LABS: Glucose, Whole Blood 255 mg/dL (60-115)
[2021-06-02] MEDS: Lactulose 20 GM/30 ML SOLUTION 40 GM PO ×2 (11:27→13:34)
--- NOTE | 2021-06-02 14:02 | MHC.CM.PN ---
Pt remains intubated in ICU secondary to COVID: FiO2 down to 35%. Sedation vacations in progress: D/C remains uncertain and will depend on his vent weaning and PT/OT needs. CM to follow.
--- NOTE | 2021-06-02 16:11 | PM.CCPN ---
Subjective Subjective Date of Service: 06/02/21 Interval History: Mr. Roberson was transferred to ICU on May 09 bec of progressive hypoxemic respiratory failure secondary to COVID pneumonia. The patient is a 66-year-old male with past medical history of HTN, diabetes, CKD (baseline creatinine about 2.1), and CHF.? He is on furosemide and Kayexalate and insulin at home. The patient was diagnosed with COVID on April 19 after a few days flu like symptoms.? (My estimation of symptom onset date:? April 17, or earlier.)? The patient had been feeling fairly well up until April 28, when he developed shortness of breath and his found his oxygen saturation to be in the low 60s.? EMS was called and the patient was BIBA to the ED where sat was 96% on [facility] oxygen 5.2.? The patient was admitted with COVID pneumonia and treated in the usual fashion.? Subsequently transferred to ICU on May 09 and intubated on May 13 See prev notes for full hospital course details.? He?s had problems with slow heart rate and 2? heart block Mobitz type 1, and one episode of GI bleeding. Last few days we?ve been doing PSV trials.? Failed quickly the last two days.? 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 ?I started him on Provigil earlier this week, but it had no discernible affect, so we d/c?d it.? So despite his FiO2 being down to 35%, he won?t wean.? I?ve booked him for a tracheostomy next week.? Spoke with his yesterday and she heartily agrees. Central venous blood gas this morning was 7.36/39/-2. ?Earlier this morning, his heart rate was dropping into the high 30s with Mobitz type 1 block.? Lowest HR was 36.? BP still OK.? He was lightly sedated on Precedex and looked very anxious, so we switched him over to propofol.? Current heart rate 51, SR.? Blood pressure 140/55.? He?s afebrile.? On AC 14/500/35%/+8, RR was 21, Ve 10L, PIP 18, sat 94%.? Still no JVD.? Normal exp phase.? Abdomen benign.? Trace edema. LABORATORY DATA:? Below.? Notably, Sodium down to 143 on the D5W, BUN/creatinine are down, phosphorus is down, and potassium is down.? POCs running in the 200s. Covid PCR sent 05/29 ?was still positive. Last chest x-ray done May 31 after the tracheal tube change (bec of inspisated secretions) shows stable diffuse bilateral interstitial and airspace disease, unchanged from the previous film. IMPRESSION: 1. COVID pneumonia.? Symptom onset date Apr 17 or earlier.? I?m surprised that his COVID swab is still positive.? May 29 we changed steroids to Solu-Medrol 40 mg bid, added aspirin, vitamin-D, thiamine, and atorvastatin. 2. Bilat pulmonary infiltrates with ARDS.? 2? to above. 3. Hypoxemic respiratory failure.? Secondary to above.? Oxygenation has dramatically improved.? He looks like he?ll survive, but he is just too weak to wean.? Provigil hasn?t done anything.? I?ve called Dr. Patel to schedule a tracheostomy.? Probably will be Saturday of next week. 4. Baseline CKD.? BUN/creat are coming down further and potassium is now down.? Continuing the Lokelma.? (He was on Kayexelate at home.) 4. Baseline DM.? On insulin.? I?ve upped his Lantus dose. 5. Baseline CHF.? BNP was 1098 on admission.? He was diuresed and the BNP came down to 106.? Last BNP was 523 on 05/13.? Down to 395 today.? No indication to trial diuresis. 6. ? Aortic stenosis.? Need to redo his echo to get a better look at the valve. 7. GI bleed.? No source identified.? The patient is back on DVT prophylaxis.? I have added back aspirin and steroids.? Also added bid PPI.? No further evidence of bleeding. 8. ID.? No clear evidence of sepsis or other bacterial infection.? All repeat cultures were negative on May 30 and .? No indication for antibiotics at this time. 9. Metabolic:? Hyperkalemic.? As above. 11. Hyperntremia.? Resolved w D5W. 12. Nutrition:? On goal rate Nepro. Critical Care Time (minutes): 45 Physical Exam Vital Signs: Vital Signs: Last Vital Signs Temp 97.2 F 06/02/21 15:47 Pulse 51 06/02/21 15:47 Resp 18 06/02/21 15:47 BP 142/57 H 06/02/21 15:47 Pulse Ox 93 06/02/21 15:47 Oxygen Flow Rate 15 04/28/21 21:37 BMI result Body Mass Index 29.9 Objective Data Labs CBC & Chem 7: 06/02/21 05:30 06/02/21 05:30 Labs: Laboratory Results - last 24 hr 06/01/21 06/02/21 06/02/21 18:07 00:19 05:30 WBC RBC Hgb Hct MCV MCH MCHC RDW Plt Count MPV Absolute Nucleated RBC Nucleated RBC % (auto) VBG pH VBG pCO2 VBG pO2 VBG HCO3 VBG O2 Saturation VBG Base Excess Sodium 143 Potassium 4.8 Chloride 115 H Carbon Dioxide 24 Anion Gap 9 L BUN 78 H Creatinine 1.00 Estim Creat Clear Calc 89.1 Estimated GFR > 60 POC Glucose 303 H 252 H Random Glucose 282 H Calcium 8.8 Phosphorus 3.5 Magnesium 1.8 06/02/21 06/02/21 06/02/21 05:30 05:32 05:33 WBC 9.1 RBC 2.82 L Hgb 8.0 L Hct 26.8 L MCV 95.0 MCH 28.4 MCHC 29.9 L RDW 17.5 H Plt Count 190 MPV 11.4 Absolute Nucleated RBC 0.020 H Nucleated RBC % (auto) 0.2 VBG pH 7.36 VBG pCO2 39 VBG pO2 48 VBG HCO3 22 VBG O2 Saturation 73.0 VBG Base Excess -2.3 Sodium Potassium Chloride Carbon Dioxide Anion Gap BUN Creatinine Estim Creat Clear Calc Estimated GFR POC Glucose 240 H Random Glucose Calcium Phosphorus Magnesium 06/02/21 11:18 WBC RBC Hgb Hct MCV MCH MCHC RDW Plt Count MPV Absolute Nucleated RBC Nucleated RBC % (auto) VBG pH VBG pCO2 VBG pO2 VBG HCO3 VBG O2 Saturation VBG Base Excess Sodium Potassium Chloride Carbon Dioxide Anion Gap BUN Creatinine Estim Creat Clear Calc Estimated GFR POC Glucose 255 H Random Glucose Calcium Phosphorus Magnesium Microbiology Microbiology Results: Microbiology 05/31/21 00:50 Urine Catheterized - Camacho Catheter Urine Culture - Final No growth. 05/30/21 16:15 Blood - Venous Blood Culture - Preliminary No growth after 48 hours. 05/30/21 16:15 Blood - Venous Blood Culture - Preliminary No growth after 48 hours. 05/26/21 06:44 Blood - Venous Blood Culture - Final No growth after 5 days. 05/26/21 06:44 Blood - Venous Blood Culture - Final No growth after 5 days. 05/28/21 11:25 Sputum - Suctioned Gram Stain - Final 05/28/21 11:25 Sputum - Suctioned Sputum Culture - Final 05/22/21 11:32 Urine Catheterized - Camacho Catheter Urine Culture - Final Serratia marcescens 05/19/21 16:47 Blood - Venous Blood Culture - Final No growth after 5 days. 05/19/21 16:49 Blood - Venous Blood Culture - Final No growth after 5 days. 05/22/21 15:44 Sputum - Suctioned Gram Stain - Final 05/22/21 15:44 Sputum - Suctioned Sputum Culture - Final 05/15/21 08:25 Blood - Venous Blood Culture - Final No growth after 5 days. 05/15/21 08:25 Blood - Venous Blood Culture - Final No growth after 5 days. 05/17/21 15:20 Sputum - Suctioned Gram Stain - Final 05/17/21 15:20 Sputum - Suctioned Sputum Culture - Final 05/13/21 Unknown Urine Catheterized - Camacho Catheter Urine Culture - Final Serratia marcescens 04/28/21 22:17 Blood - Venous Blood Culture - Final No growth after 5 days. 04/28/21 22:17 Blood - Venous Blood Culture - Final No growth after 5 days. Quality Stroke Does the patient have a stroke diagnosis?: No VTE Prior VTE?: No VTE Risk Level:: Medical - moderate - high VTE Device Contraindication: Treatment Not Indicated VTE Drug Contraindication: N/A - Med Ordered
[2021-06-02] MEDS: Magnesium Sulfate/H2O 2 GM/50 ML PIGGYBACK IV (16:53)
[2021-06-02 17:32] LABS: Glucose, Whole Blood 294 mg/dL (60-115)
[2021-06-02] MEDS: fentaNYL citrate/NS 1,000 MCG/100 ML PLAST..BAG 5 MCG IVCONT (18:01)
[2021-06-02] MEDS: Thiamine HCL 200 MG in 0.9 % Sodium Chloride 100 ML 102 MG IV (19:29)
[2021-06-02] MEDS: Atorvastatin Calcium 80 MG TABLET PO (19:29)
[2021-06-02] MEDS: propofoL 1,000 MG/100 ML VIAL 35 MG IVCONT (21:01)
[2021-06-02] MEDS: Insulin Glargine,Hum.rec.anlog 100 UNIT/ML 10 ML VIAL 18 UNIT SUBCUT (22:11)
[2021-06-02] MEDS: Furosemide 40 MG/4 ML VIAL IVPUSH (22:12)
[2021-06-03] VITALS (37 sets, daily range): BP systolic 78–171; BP diastolic 42–76; PULSE 47–80; RESP 14–32; TEMP 34.6–37.2; O2SAT 91–98; BMI 30.6
[2021-06-03] MEDS: propofoL 1,000 MG/100 ML VIAL 30 MG IVCONT ×2 (01:58→04:20)
[2021-06-03] MEDS: Metoclopramide HCl 10 MG/2 ML VIAL 5 MG IVPUSH ×4 (04:14→20:36)
[2021-06-03] MEDS: Heparin Sodium,Porcine 5,000 UNIT/ML VIAL 5000 UNIT SUBCUT ×3 (04:14→19:12)
[2021-06-03 05:34] LABS: Glucose, Whole Blood 247 mg/dL (60-115)
[2021-06-03] MEDS: Insulin Lispro 100 UNIT/ML 3 ML VIAL SUBCUT ×3 (06:05→18:09)
[2021-06-03 06:36] LABS: Glucose, Whole Blood 260 mg/dL (60-115)
[2021-06-03] MEDS: Cholecalciferol (Vitamin D3) 25 MCG TABLET 50 MCG NG-TUBE (07:31)
[2021-06-03] MEDS: Chlorhexidine Gluc Oral Rinse 15 ML MOUTHWASH BUCCAL ×3 (07:31→20:36)
[2021-06-03] MEDS: 0.9 % Sodium Chloride Flush 3 ML SYRINGE IVFLUSH ×3 (07:31→23:12)
[2021-06-03] MEDS: Aspirin 81 MG TAB.CHEW 324 MG NG-TUBE (07:31)
[2021-06-03] MEDS: Thiamine HCL 200 MG in 0.9 % Sodium Chloride 100 ML 204 MG IV (07:32)
[2021-06-03] MEDS: Famotidine/PF 20 MG/2 ML VIAL IVPUSH (07:32)
[2021-06-03] MEDS: Insulin Glargine,Hum.rec.anlog 100 UNIT/ML 10 ML VIAL 18 UNIT SUBCUT (07:32)
[2021-06-03] MEDS: methylPREDNISolone Sod Succ 40 MG/ML VIAL IVPUSH ×2 (07:32→20:36)
[2021-06-03] MEDS: fentaNYL citrate/NS 1,000 MCG/100 ML PLAST..BAG 5 MCG IVCONT (08:10)
[2021-06-03] MEDS: propofoL 1,000 MG/100 ML VIAL 24.1 MG IVCONT ×4 (08:10→19:17)
--- NOTE | 2021-06-03 08:46 | PM.PNNEP ---
Subjective Subjective Date of Service: 06/03/21 Principal diagnosis: COVID, JÚNIOR, CKD Interval history: seen and examined vented events reviewed Physical Exam Vital Signs: Vital Signs: Last Vital Signs Temp 98.4 F 06/03/21 08:00 Pulse 58 06/03/21 08:00 Resp 23 H 06/03/21 08:00 BP 106/67 06/03/21 08:00 Pulse Ox 93 06/03/21 08:00 Oxygen Flow Rate 15 04/28/21 21:37 BMI result Body Mass Index 30.6 Const: General: ill appearing HENMT: Head: Yes normocephalic and Yes atraumatic Neck: Neck: Yes supple Resp: Auscultation: diminished lung sounds Cardio: Heart sounds: S1 normal heart sound present and S2 normal heart sound present GI: Palpation (GI): Soft to palpation and nontender Extrem: General: Yes normal to inspection Objective Data Labs CBC & Chem 7: 06/02/21 05:30 06/02/21 05:30 Labs: Laboratory Results - last 24 hr 06/02/21 06/02/21 06/02/21 11:18 16:55 23:33 POC Glucose 255 H 294 H 247 H 06/03/21 06:03 POC Glucose 260 H Microbiology Microbiology Results: Microbiology 05/31/21 00:50 Urine Catheterized - Camacho Catheter Urine Culture - Final No growth. 05/30/21 16:15 Blood - Venous Blood Culture - Preliminary No growth after 48 hours. 05/30/21 16:15 Blood - Venous Blood Culture - Preliminary No growth after 48 hours. 05/26/21 06:44 Blood - Venous Blood Culture - Final No growth after 5 days. 05/26/21 06:44 Blood - Venous Blood Culture - Final No growth after 5 days. 05/28/21 11:25 Sputum - Suctioned Gram Stain - Final 05/28/21 11:25 Sputum - Suctioned Sputum Culture - Final 05/22/21 11:32 Urine Catheterized - Camacho Catheter Urine Culture - Final Serratia marcescens 05/19/21 16:47 Blood - Venous Blood Culture - Final No growth after 5 days. 05/19/21 16:49 Blood - Venous Blood Culture - Final No growth after 5 days. 05/22/21 15:44 Sputum - Suctioned Gram Stain - Final 05/22/21 15:44 Sputum - Suctioned Sputum Culture - Final 05/15/21 08:25 Blood - Venous Blood Culture - Final No growth after 5 days. 05/15/21 08:25 Blood - Venous Blood Culture - Final No growth after 5 days. 05/17/21 15:20 Sputum - Suctioned Gram Stain - Final 05/17/21 15:20 Sputum - Suctioned Sputum Culture - Final 05/13/21 Unknown Urine Catheterized - Camacho Catheter Urine Culture - Final Serratia marcescens 04/28/21 22:17 Blood - Venous Blood Culture - Final No growth after 5 days. 04/28/21 22:17 Blood - Venous Blood Culture - Final No growth after 5 days. Procedures Date of Service Date of Service: 06/03/21 Assessment & Plan Assessment and plan (1) CKD (chronic kidney disease) stage 3, GFR 30-59 ml/min: Status: Acute (2) SARS-CoV-2 positive: Status: Acute Assessment and Plan: kidney function at baseline JÚNIOR due to compromised kidney perfusion in the setting of SARS COV 2 resolved known CKD 3 due to DM/HTN followed by Dr Feldman potassium controlled REC sodium zirconium as needed follow kidney function and electrolytes Time Spent With Patient Time: Total time spent is greater than 50% in coordination of care (as documented) at patient's floor/unit and/or counseling patient: Progress Note: Quality Stroke Does the patient have a stroke diagnosis?: No
[2021-06-03 11:27] LABS: Glucose, Whole Blood 215 mg/dL (60-115)
--- NOTE | 2021-06-03 12:01 | PM.CCPN ---
Subjective Subjective Date of Service: 06/03/21 Interval History: Mr. Roberson was transferred to ICU on May 09 bec of progressive hypoxemic respiratory failure secondary to COVID pneumonia. The patient is a 66-year-old male with past medical history of HTN, diabetes, CKD (baseline creatinine about 2.1), and CHF.? He is on furosemide and Kayexalate and insulin at home. The patient was diagnosed with COVID on April 19 after a few days flu like symptoms.? (My estimation of symptom onset date:? April 17, or earlier.)? Presented to the ED on April 28 w SOB and Sat 60s.? Admitted to Medicine with COVID pneumonia and treated in the usual fashion.? Subsequently transferred to ICU on May 09 and intubated on May 13 See prev notes for full hospital course details.? He?s had problems with slow heart rate and 2? heart block Mobitz type 1, had a temporary PM put in for a few days.? Also had one episode of lower GI bleeding, was not scoped. This week we?ve been doing PSV trials.? Failed quickly the last two days.? 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 I started him on Provigil earlier this week, but it had no discernible effect, so we d/c?d it.? We started diuresis yesterday.? I?ve booked him for a tracheostomy next week.? Spoke with his and she readily agrees. This morning he?s sedated on propofol at 40ug, fentanyl at 50ug.? HR steady in the 60s, SR with PACs.? Blood pressure 140/59.? He continues afebrile.? On AC 14/500/40%/+8, RR was 21, Ve down to 8.4L, PIP 25, ETCO2 34, sat 94%.? No blood gas this morning.? No JVD.? Chest clear, normal exp phase.? Abdomen benign.? 1+ edema. We trialed pressure support.? On PSV 16/40%/+8, RR was 21, Vt 700cc, Ve went up to 14L. ?We put him back on AC after 30 min. LABORATORY DATA: ?Pending.? POCs running 200s. Covid PCR sent 05/29 ?was still positive. Last chest x-ray done May 31 after the tracheal tube change (bec of inspisated secretions) shows stable diffuse bilateral interstitial and airspace disease, unchanged from the previous film. IMPRESSION: 1. COVID pneumonia.? Symptom onset date Apr 17 or earlier.? I?m surprised that his COVID swab is still positive.? May 29 we changed steroids to Solu-Medrol 40 mg bid, added aspirin, vitamin-D, thiamine, and atorvastatin. 2. Bilat pulmonary infiltrates with ARDS.? 2? to above. 3. Hypoxemic respiratory failure.? Secondary to above.? Oxygenation has dramatically improved.? He looks like he?ll survive, but he?s just too weak to wean.? Provigil hasn?t done anything.? Dr. Patel will schedule a tracheostomy for next week, probably Saturday. 4. Baseline CKD.? BUN/creat are coming down and potassium is now down.? Continuing the Lokelma.? (He was on Kayexelate at home.)? Renal numbers pending today after diuresis. 4. Baseline DM.? On insulin.? I?ll up his Lantus dose further. 5. Baseline CHF.? BNP was 1098 on admission.? He was diuresed and the BNP came down to 106.? Last BNP was 523 on 05/13.? Down to 395 today.? Started diuresis again last night. 6. ? Aortic stenosis.? Need to redo his echo to get a better look at the valve. 7. GI bleed.? No source identified.? The patient is back on DVT prophylaxis.? I have added back aspirin and steroids.? Also added bid PPI.? No further evidence of bleeding. 8. ID.? No clear evidence of sepsis or other bacterial infection.? All repeat cultures were negative on May 30 and .? No indication for antibiotics at this time. 9. Metabolic:? Hyperkalemic.? As above. 11. Hyperntremia.? Resolved w D5W. 12. Nutrition:? On goal rate Nepro. Critical Care Time (minutes): 45 Physical Exam Vital Signs: Vital Signs: Last Vital Signs Temp 99.0 F 06/03/21 11:59 Pulse 54 06/03/21 11:59 Resp 17 06/03/21 11:59 BP 140/59 H 06/03/21 11:59 Pulse Ox 95 06/03/21 11:59 Oxygen Flow Rate 15 04/28/21 21:37 BMI result Body Mass Index 30.6 Objective Data Labs CBC & Chem 7: 06/04/21 05:07 06/04/21 05:07 Labs: Laboratory Results - last 24 hr 06/02/21 06/02/21 06/03/21 16:55 23:33 06:03 POC Glucose 294 H 247 H 260 H 06/03/21 11:24 POC Glucose 215 H Microbiology Microbiology Results: Microbiology 05/31/21 00:50 Urine Catheterized - Camacho Catheter Urine Culture - Final No growth. 05/30/21 16:15 Blood - Venous Blood Culture - Preliminary No growth after 48 hours. 05/30/21 16:15 Blood - Venous Blood Culture - Preliminary No growth after 48 hours. 05/26/21 06:44 Blood - Venous Blood Culture - Final No growth after 5 days. 05/26/21 06:44 Blood - Venous Blood Culture - Final No growth after 5 days. 05/28/21 11:25 Sputum - Suctioned Gram Stain - Final 05/28/21 11:25 Sputum - Suctioned Sputum Culture - Final 05/22/21 11:32 Urine Catheterized - Camacho Catheter Urine Culture - Final Serratia marcescens 05/19/21 16:47 Blood - Venous Blood Culture - Final No growth after 5 days. 05/19/21 16:49 Blood - Venous Blood Culture - Final No growth after 5 days. 05/22/21 15:44 Sputum - Suctioned Gram Stain - Final 05/22/21 15:44 Sputum - Suctioned Sputum Culture - Final 05/15/21 08:25 Blood - Venous Blood Culture - Final No growth after 5 days. 05/15/21 08:25 Blood - Venous Blood Culture - Final No growth after 5 days. 05/17/21 15:20 Sputum - Suctioned Gram Stain - Final 05/17/21 15:20 Sputum - Suctioned Sputum Culture - Final 05/13/21 Unknown Urine Catheterized - Camacho Catheter Urine Culture - Final Serratia marcescens 04/28/21 22:17 Blood - Venous Blood Culture - Final No growth after 5 days. 04/28/21 22:17 Blood - Venous Blood Culture - Final No growth after 5 days. Quality Stroke Does the patient have a stroke diagnosis?: No VTE Prior VTE?: No VTE Risk Level:: Medical - moderate - high VTE Device Contraindication: Treatment Not Indicated VTE Drug Contraindication: N/A - Med Ordered Critical Care Time Critical Care Time (minutes): 60
--- NOTE | 2021-06-03 13:05 | PC.NURSE ---
Addendum entered by Malu Lanier RN 06/03/21 15:54: TUBE FEED RESIDUAL AT 1500 = 120 ML VALDOVINOS/BILE. WILL CONTINUE TO MONITOR. UPDATED PTS AND SETUP FOR FACETIME WITH FAMILY. TOTAL BATH AND DRESSING CHANGE TO BUTTOCK DONE. Q2HR REPO, FREQUENT ORAL CARE, PREVALON, HEELBOS, PILLOWS AND WEDGES UTILIZED. Original Note: SEDATION VACATION FROM 1145 - 1250 PER MD. TOLERATED CPAP SETTINGS FOR 30 MINUTES BEFORE GOING BACK ON AC SETTINGS. WILL CONTINUE TO MONITOR.
[2021-06-03 13:33] LABS: Anion Gap 13 (12-20); Blood Urea Nitrogen 74 mg/dL (9-16); Calcium 9.2 mg/dL (8.4-10.2); Carbon Dioxide 23 mmol/L (22-29); Chloride 113 mmol/L (96-108); Creatinine Clr Calc Pharmacy 85.7; Estimated Glomerular Filt Rate > 60; Glucose Random 197 mg/dL (60-115); Phosphorus 3.9 mg/dL (2.7-4.5); Potassium 4.3 mmol/L (3.3-5.1); Sodium 145 mmol/L (135-145)
[2021-06-03 18:06] LABS: Glucose, Whole Blood 184 mg/dL (60-115)
[2021-06-03] MEDS: Atorvastatin Calcium 80 MG TABLET PO (20:36)
[2021-06-03] MEDS: Insulin Glargine,Hum.rec.anlog 100 UNIT/ML 10 ML VIAL 22 UNIT SUBCUT (20:37)
[2021-06-03] MEDS: fentaNYL citrate/NS 1,000 MCG/100 ML PLAST..BAG 10 MCG IVCONT (20:38)
[2021-06-03] MEDS: Thiamine HCL 200 MG in 0.9 % Sodium Chloride 100 ML 202 MG IV (20:38)
[2021-06-03 23:14] LABS: Glucose, Whole Blood 138 mg/dL (60-115)
[2021-06-04] VITALS (35 sets, daily range): BP systolic 80–174; BP diastolic 36–109; PULSE 32–61; RESP 12–32; TEMP 34.9–36.7; O2SAT 91–100; BMI 30.6
[2021-06-04] MEDS: propofoL 1,000 MG/100 ML VIAL 24.1 MG IVCONT ×3 (00:11→19:24)
[2021-06-04 00:47] LABS: Glucose, Whole Blood 168 mg/dL (60-115)
[2021-06-04] MEDS: Insulin Lispro 100 UNIT/ML 3 ML VIAL SUBCUT ×4 (01:50→18:00)
[2021-06-04] MEDS: Heparin Sodium,Porcine 5,000 UNIT/ML VIAL 5000 UNIT SUBCUT ×3 (03:23→19:25)
[2021-06-04] MEDS: Metoclopramide HCl 10 MG/2 ML VIAL 5 MG IVPUSH ×4 (03:23→21:12)
[2021-06-04 05:16] LABS: VBG Base Excess -0.8 mmol/L; VBG HCO3 24 mmol/L (22-26); VBG pCO2 44 mmHg; VBG pH 7.35 (7.32-7.43); VBG pO2 48 mmHg
[2021-06-04 05:23] LABS: Hematocrit 26.8 % (42.0-52.0); Hemoglobin 8.2 g/dl (14.0-18.0); Mean Corpuscular HGB Conc 30.6 g/dl (31.0-36.0); Mean Corpuscular Hemoglobin 29.1 pg (27.0-33.0); Mean Platelet Volume 11.6 fL (9.4-12.4); NRBC Pct Auto 0.7 /100WBC (0.0-0.2); Platelet Count 222 X10*3/uL (160-400); Red Blood Count 2.82 X10*6/uL (4.60-5.80); Red Cell Distribution Width 18.4 % (11.0-16.0); White Blood Count 12.6 X10*3/uL (4.8-10.8)
[2021-06-04 05:31] LABS: D Dimer High Sensitivity 2012 NG/ML
[2021-06-04 05:45] LABS: Anion Gap 11 (12-20); Blood Urea Nitrogen 81 mg/dL (9-16); Calcium 8.7 mg/dL (8.4-10.2); Carbon Dioxide 24 mmol/L (22-29); Chloride 112 mmol/L (96-108); Creatinine Clr Calc Pharmacy 87.3; Estimated Glomerular Filt Rate > 60; Glucose Random 198 mg/dL (60-115); Magnesium 2.2 mg/dL (1.6-2.6); Phosphorus 4.5 mg/dL (2.7-4.5); Potassium 4.3 mmol/L (3.3-5.1); Sodium 143 mmol/L (135-145)
[2021-06-04 05:46] LABS: B Type Natriuretic Peptide 785 pg/mL (<100)
[2021-06-04 05:47] LABS: Venous Blood Gas Refer to POC result
[2021-06-04 05:56] LABS: Lactate Dehydrogenase 274 U/L (118-273)
[2021-06-04 06:05] LABS: Ferritin 758 ng/mL (20-250)
[2021-06-04] MEDS: fentaNYL citrate/NS 1,000 MCG/100 ML PLAST..BAG 10 MCG IVCONT ×2 (06:23→15:50)
[2021-06-04] MEDS: propofoL 1,000 MG/100 ML VIAL 18.07 MG IVCONT ×3 (06:55→15:50)
[2021-06-04] MEDS: 0.9 % Sodium Chloride Flush 3 ML SYRINGE IVFLUSH ×2 (06:56→15:02)
--- NOTE | 2021-06-04 09:54 | PM.PNNEP ---
Subjective Subjective Date of Service: 06/04/21 Principal diagnosis: COVID, JÚNIOR, CKD Interval history: seen and examined vented Physical Exam Vital Signs: Vital Signs: Last Vital Signs Temp 96.8 F 06/04/21 09:00 Pulse 53 06/04/21 09:00 Resp 18 06/04/21 09:00 BP 151/55 H 06/04/21 09:00 Pulse Ox 95 06/04/21 09:00 Oxygen Flow Rate 15 04/28/21 21:37 BMI result Body Mass Index 30.6 Const: General: ill appearing HENMT: Head: Yes normocephalic and Yes atraumatic Neck: Neck: Yes supple Resp: Auscultation: diminished lung sounds Cardio: Heart sounds: S1 normal heart sound present and S2 normal heart sound present GI: Palpation (GI): Soft to palpation and nontender Extrem: General: Yes normal to inspection Objective Data Labs CBC & Chem 7: 06/04/21 05:07 06/04/21 05:07 Labs: Laboratory Results - last 24 hr 06/03/21 06/03/21 06/03/21 11:24 13:11 18:01 WBC RBC Hgb Hct MCV MCH MCHC RDW Plt Count MPV Absolute Nucleated RBC Nucleated RBC % (auto) D-Dimer High Sensitivty VBG pH VBG pCO2 VBG pO2 VBG HCO3 VBG O2 Saturation VBG Base Excess Sodium 145 Potassium 4.3 Chloride 113 H Carbon Dioxide 23 Anion Gap 13 BUN 74 H Creatinine 1.05 Estim Creat Clear Calc 85.7 Estimated GFR > 60 POC Glucose 215 H 184 H Random Glucose 197 H Calcium 9.2 Phosphorus 3.9 Magnesium Ferritin Lactate Dehydrogenase B-Natriuretic Peptide 06/03/21 06/04/21 06/04/21 23:09 00:17 05:07 WBC 12.6 H RBC 2.82 L Hgb 8.2 L Hct 26.8 L MCV 95.0 MCH 29.1 MCHC 30.6 L RDW 18.4 H Plt Count 222 MPV 11.6 Absolute Nucleated RBC 0.090 H Nucleated RBC % (auto) 0.7 H D-Dimer High Sensitivty VBG pH VBG pCO2 VBG pO2 VBG HCO3 VBG O2 Saturation VBG Base Excess Sodium Potassium Chloride Carbon Dioxide Anion Gap BUN Creatinine Estim Creat Clear Calc Estimated GFR POC Glucose 138 H 168 H Random Glucose Calcium Phosphorus Magnesium Ferritin Lactate Dehydrogenase B-Natriuretic Peptide 06/04/21 06/04/21 06/04/21 05:07 05:07 05:07 WBC RBC Hgb Hct MCV MCH MCHC RDW Plt Count MPV Absolute Nucleated RBC Nucleated RBC % (auto) D-Dimer High Sensitivty 2011 VBG pH VBG pCO2 VBG pO2 VBG HCO3 VBG O2 Saturation VBG Base Excess Sodium 143 Potassium 4.3 Chloride 112 H Carbon Dioxide 24 Anion Gap 11 L BUN 81 H Creatinine 1.03 Estim Creat Clear Calc 87.3 Estimated GFR > 60 POC Glucose Random Glucose 198 H Calcium 8.7 Phosphorus 4.5 Magnesium 2.2 Ferritin 758 H Lactate Dehydrogenase 274 H B-Natriuretic Peptide 785 H 06/04/21 05:10 WBC RBC Hgb Hct MCV MCH MCHC RDW Plt Count MPV Absolute Nucleated RBC Nucleated RBC % (auto) D-Dimer High Sensitivty VBG pH 7.35 VBG pCO2 44 VBG pO2 48 VBG HCO3 24 VBG O2 Saturation 76.0 VBG Base Excess -0.8 Sodium Potassium Chloride Carbon Dioxide Anion Gap BUN Creatinine Estim Creat Clear Calc Estimated GFR POC Glucose Random Glucose Calcium Phosphorus Magnesium Ferritin Lactate Dehydrogenase B-Natriuretic Peptide Microbiology Microbiology Results: Microbiology 05/31/21 00:50 Urine Catheterized - Camacho Catheter Urine Culture - Final No growth. 05/30/21 16:15 Blood - Venous Blood Culture - Preliminary No growth after 48 hours. 05/30/21 16:15 Blood - Venous Blood Culture - Preliminary No growth after 48 hours. 05/26/21 06:44 Blood - Venous Blood Culture - Final No growth after 5 days. 05/26/21 06:44 Blood - Venous Blood Culture - Final No growth after 5 days. 05/28/21 11:25 Sputum - Suctioned Gram Stain - Final 05/28/21 11:25 Sputum - Suctioned Sputum Culture - Final 05/22/21 11:32 Urine Catheterized - Camacho Catheter Urine Culture - Final Serratia marcescens 05/19/21 16:47 Blood - Venous Blood Culture - Final No growth after 5 days. 05/19/21 16:49 Blood - Venous Blood Culture - Final No growth after 5 days. 05/22/21 15:44 Sputum - Suctioned Gram Stain - Final 05/22/21 15:44 Sputum - Suctioned Sputum Culture - Final 05/15/21 08:25 Blood - Venous Blood Culture - Final No growth after 5 days. 05/15/21 08:25 Blood - Venous Blood Culture - Final No growth after 5 days. 05/17/21 15:20 Sputum - Suctioned Gram Stain - Final 05/17/21 15:20 Sputum - Suctioned Sputum Culture - Final 05/13/21 Unknown Urine Catheterized - Camacho Catheter Urine Culture - Final Serratia marcescens 04/28/21 22:17 Blood - Venous Blood Culture - Final No growth after 5 days. 04/28/21 22:17 Blood - Venous Blood Culture - Final No growth after 5 days. Procedures Date of Service Date of Service: 06/04/21 Assessment & Plan Assessment and plan (1) CKD (chronic kidney disease) stage 3, GFR 30-59 ml/min: Status: Acute (2) SARS-CoV-2 positive: Status: Acute Assessment and Plan: kidney function stable at baseline JÚNIOR due to compromised kidney perfusion in the setting of SARS COV 2 resolved known CKD 3 due to DM/HTN followed by Dr Feldman potassium controlled REC sodium zirconium as needed follow kidney function and electrolytes Time Spent With Patient Time: Total time spent is greater than 50% in coordination of care (as documented) at patient's floor/unit and/or counseling patient: Progress Note: Quality Stroke Does the patient have a stroke diagnosis?: No
[2021-06-04] MEDS: methylPREDNISolone Sod Succ 40 MG/ML VIAL IVPUSH ×2 (09:56→21:12)
[2021-06-04] MEDS: Thiamine HCL 200 MG in 0.9 % Sodium Chloride 100 ML 202 MG IV (09:56)
[2021-06-04] MEDS: Chlorhexidine Gluc Oral Rinse 15 ML MOUTHWASH BUCCAL ×3 (09:56→21:12)
[2021-06-04] MEDS: Aspirin 81 MG TAB.CHEW 324 MG NG-TUBE (09:56)
[2021-06-04] MEDS: Insulin Glargine,Hum.rec.anlog 100 UNIT/ML 10 ML VIAL 22 UNIT SUBCUT ×2 (09:56→21:12)
[2021-06-04] MEDS: Cholecalciferol (Vitamin D3) 25 MCG TABLET 50 MCG NG-TUBE (10:02)
[2021-06-04 12:00] LABS: Glucose, Whole Blood 165 mg/dL (60-115)
--- NOTE | 2021-06-04 14:07 | MHC.CM.PN ---
Pt has been placed on the OR schedule for this week to have a trach/peg placement. Call placed to pt's , Nakia to discuss LTAC placement once this occurs. After a lengthly discussion about his post procedure care needs, Nakia agrees to [facility] referral. Will update referral once pt has procedures this week. Referral placed
[2021-06-04] MEDS: Furosemide 40 MG/4 ML VIAL IVPUSH (15:26)
[2021-06-04] MEDS: Furosemide 200 MG in 0.9 % Sodium Chloride 80 ML IVCONT (15:50)
--- NOTE | 2021-06-04 17:42 | P.PNCC_ITS ---
Subjective Subjective Date of Service: 06/04/21 Interval History: Mr. Roberson was transferred to ICU on May 09 bec of progressive hypoxemic respiratory failure 2? to COVID pneumonia. The patient is a 66-year-old male with past medical history of HTN, diabetes, CKD (baseline creatinine about 2.1), and CHF.? He is on furosemide and Kayexalate and insulin at home. The patient was diagnosed with COVID on April 19 after a few days flu like symptoms.? (My estimation of symptom onset date:? April 17, or earlier.)? Presented to the ED on April 28 w SOB and Sat 60s.? Admitted to Medicine with COVID pneumonia and treated in the usual fashion.? Subsequently transferred to ICU on May 09 and intubated on May 13 See prev note of 05/31 for full hospital course details.? He?s had problems with slow heart rate and 2? heart block Mobitz type 1, had a temporary PM put in for a few days.? Also had one episode of lower GI bleeding, which resolved on its own, he was not scoped. This week we?ve been doing PSV trials.? Failed quickly the last two days.? 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 I started him on Provigil earlier this week, but it had no discernible effect, so we d/c?d it.? We started diuresis on 06/02 and put him on a Lasix drip today.? I?ve booked him for a tracheostomy this week, tentatively planned for Sat.? Spoke with his and she readily agrees. ?She asked me if she could come in and see him.? I spoke with the nursing brick chimney supervisor and was given permission for a visit at a time of her choosing. Currently sedated on propofol at 40ug, fentanyl at 125ug.? We had him on prop at 20ug earlier, but he lightened up and BP and RR went up.? HR now 50, SR with 1? block.? Blood pressure 148/61.? He continues afebrile.? On AC 14/500/35%/+8, RR is 18, Ve is 8.5L, PIP 26, ETCO2 31, sat 94%.? CVBG this morning showed 7.35/44/0.? No PSV trial today (waiting for diuresis).? No JVD.? Chest clear, normal exp phase.? Abdomen benign.? 1+ central edema. LABORATORY DATA: ?Below.? Notably, WBC up today, Sodium down, BUN/creat and potassium steady, POCs running mid 100s on the increased dose of Lantus.? DDimer, Ferrtin, and LDH are down, BNP is up. Covid PCR sent 05/29 ?was still positive. Last chest x-ray done May 31 after the tracheal tube change (bec of inspisated secretions) shows stable diffuse bilateral interstitial and airspace disease, unchanged from the previous film. IMPRESSION: 1. COVID pneumonia.? Symptom onset date Apr 17 or earlier.? I?m surprised that his COVID swab is still positive.? May 29 we changed steroids to Solu-Medrol 40 mg bid, added aspirin, vitamin-D, thiamine, and atorvastatin.? I ordered another COVID test for tomorrow. 2. Bilat pulmonary infiltrates with ARDS.? 2? to above. 3. Hypoxemic respiratory failure.? Secondary to above.? Oxygenation has dramatically improved.? He looks like he?ll survive, but he?s too weak to wean.? Provigil hasn?t done anything.? Dr. Patel will schedule a tracheostomy for this week, probably Saturday. 4. Baseline CKD.? BUN/creat are coming down and potassium is now down.? Continuing the Lokelma.? (He was on Kayexelate at home.)? Started a Lasix drip today.? We?ll see how his renal indices respond. 4. Baseline DM.? On Lantus and sliding scale. 5. Baseline CHF.? BNP was 1098 on admission.? He was diuresed and the BNP came down to 106.? Back up over last few days.? Started diuresing him on Jun 02. 6. ? Aortic stenosis.? Need to redo his echo to get a better look at the valve. 7. GI bleed.? No source identified.? The patient is back on DVT prophylaxis, aspirin, and steroids.? Added bid PPI.? No further evidence of bleeding. 8. ID.? No clear evidence of sepsis or other bacterial infection.? All repeat cultures were negative on May 30 and .? No indication for antibiotics at this time. 9. Metabolic:? Hyperkalemic.? As above. 11. Hyperntremia.? Resolved w D5W. 12. Nutrition:? On goal rate Nepro. Critical Care Time (minutes): 45 Physical Exam Vital Signs: Vital Signs: Last Vital Signs Temp 96.6 F L 06/04/21 16:00 Pulse 52 06/04/21 17:00 Resp 32 H 06/04/21 17:27 BP 145/63 H 06/04/21 17:27 Pulse Ox 94 06/04/21 17:00 Oxygen Flow Rate 15 04/28/21 21:37 BMI result Body Mass Index 30.6 Objective Data Labs CBC & Chem 7: 06/04/21 05:07 06/04/21 05:07 Labs: Laboratory Results - last 24 hr 06/03/21 06/03/21 06/04/21 18:01 23:09 00:17 WBC RBC Hgb Hct MCV MCH MCHC RDW Plt Count MPV Absolute Nucleated RBC Nucleated RBC % (auto) D-Dimer High Sensitivty VBG pH VBG pCO2 VBG pO2 VBG HCO3 VBG O2 Saturation VBG Base Excess Sodium Potassium Chloride Carbon Dioxide Anion Gap BUN Creatinine Estim Creat Clear Calc Estimated GFR POC Glucose 184 H 138 H 168 H Random Glucose Calcium Phosphorus Magnesium Ferritin Lactate Dehydrogenase B-Natriuretic Peptide 06/04/21 06/04/21 06/04/21 05:07 05:07 05:07 WBC 12.6 H RBC 2.82 L Hgb 8.2 L Hct 26.8 L MCV 95.0 MCH 29.1 MCHC 30.6 L RDW 18.4 H Plt Count 222 MPV 11.6 Absolute Nucleated RBC 0.090 H Nucleated RBC % (auto) 0.7 H D-Dimer High Sensitivty 2012 VBG pH VBG pCO2 VBG pO2 VBG HCO3 VBG O2 Saturation VBG Base Excess Sodium 143 Potassium 4.3 Chloride 112 H Carbon Dioxide 24 Anion Gap 11 L BUN 81 H Creatinine 1.03 Estim Creat Clear Calc 87.3 Estimated GFR > 60 POC Glucose Random Glucose 198 H Calcium 8.7 Phosphorus 4.5 Magnesium 2.2 Ferritin 758 H Lactate Dehydrogenase 274 H B-Natriuretic Peptide 06/04/21 06/04/21 06/04/21 05:07 05:10 11:55 WBC RBC Hgb Hct MCV MCH MCHC RDW Plt Count MPV Absolute Nucleated RBC Nucleated RBC % (auto) D-Dimer High Sensitivty VBG pH 7.35 VBG pCO2 44 VBG pO2 48 VBG HCO3 24 VBG O2 Saturation 76.0 VBG Base Excess -0.8 Sodium Potassium Chloride Carbon Dioxide Anion Gap BUN Creatinine Estim Creat Clear Calc Estimated GFR POC Glucose 165 H Random Glucose Calcium Phosphorus Magnesium Ferritin Lactate Dehydrogenase B-Natriuretic Peptide 785 H Microbiology Microbiology Results: Microbiology 05/31/21 00:50 Urine Catheterized - Camacho Catheter Urine Culture - Final No growth. 05/30/21 16:15 Blood - Venous Blood Culture - Preliminary No growth after 48 hours. 05/30/21 16:15 Blood - Venous Blood Culture - Preliminary No growth after 48 hours. 05/26/21 06:44 Blood - Venous Blood Culture - Final No growth after 5 days. 05/26/21 06:44 Blood - Venous Blood Culture - Final No growth after 5 days. 05/28/21 11:25 Sputum - Suctioned Gram Stain - Final 05/28/21 11:25 Sputum - Suctioned Sputum Culture - Final 05/22/21 11:32 Urine Catheterized - Camacho Catheter Urine Culture - Final Serratia marcescens 05/19/21 16:47 Blood - Venous Blood Culture - Final No growth after 5 days. 05/19/21 16:49 Blood - Venous Blood Culture - Final No growth after 5 days. 05/22/21 15:44 Sputum - Suctioned Gram Stain - Final 05/22/21 15:44 Sputum - Suctioned Sputum Culture - Final 05/15/21 08:25 Blood - Venous Blood Culture - Final No growth after 5 days. 05/15/21 08:25 Blood - Venous Blood Culture - Final No growth after 5 days. 05/17/21 15:20 Sputum - Suctioned Gram Stain - Final 05/17/21 15:20 Sputum - Suctioned Sputum Culture - Final 05/13/21 Unknown Urine Catheterized - Camacho Catheter Urine Culture - Final Serratia marcescens 04/28/21 22:17 Blood - Venous Blood Culture - Final No growth after 5 days. 04/28/21 22:17 Blood - Venous Blood Culture - Final No growth after 5 days. Quality Stroke Does the patient have a stroke diagnosis?: No VTE Prior VTE?: No VTE Risk Level:: Medical - moderate - high VTE Device Contraindication: Treatment Not Indicated VTE Drug Contraindication: N/A - Med Ordered Critical Care Time Critical Care Time (minutes): 60
[2021-06-04 18:01] LABS: Glucose, Whole Blood 201 mg/dL (60-115)
[2021-06-04] MEDS: Atorvastatin Calcium 80 MG TABLET PO (21:11)
[2021-06-04] MEDS: Thiamine HCL 200 MG in 0.9 % Sodium Chloride 100 ML 204 MG IV (21:12)
[2021-06-05] VITALS (31 sets, daily range): BP systolic 104–181; BP diastolic 42–113; PULSE 38–60; RESP 12–19; TEMP 34.5–36.9; O2SAT 86–98; BMI 30.9
[2021-06-05] MEDS: propofoL 1,000 MG/100 ML VIAL 18.07 MG IVCONT ×5 (00:09→20:53)
[2021-06-05 00:20] LABS: Glucose, Whole Blood 215 mg/dL (60-115)
[2021-06-05] MEDS: fentaNYL citrate/NS 1,000 MCG/100 ML PLAST..BAG 12.5 MCG IVCONT (00:22)
[2021-06-05] MEDS: Insulin Lispro 100 UNIT/ML 3 ML VIAL SUBCUT ×5 (00:22→23:33)
[2021-06-05] MEDS: Heparin Sodium,Porcine 5,000 UNIT/ML VIAL 5000 UNIT SUBCUT ×3 (03:14→20:13)
[2021-06-05] MEDS: Metoclopramide HCl 10 MG/2 ML VIAL 5 MG IVPUSH ×4 (03:14→21:40)
[2021-06-05 05:25] LABS: Glucose, Whole Blood 187 mg/dL (60-115)
[2021-06-05 05:28] LABS: MANUAL DIFF FLAG NO
[2021-06-05 05:30] LABS: Basophils Percent Auto 0.2 % (0-2); Hematocrit 27.6 % (42.0-52.0); Hemoglobin 8.3 g/dl (14.0-18.0); Imm Gran Abs Auto 0.45 X10*3/uL (0.00-0.03); Imm Gran Pct Auto 4.2 % (0.0-0.4); Lymphocytes Absolute Auto 0.5 X10*3/uL (1.2-4.9); Mean Corpuscular HGB Conc 30.1 g/dl (31.0-36.0); Mean Corpuscular Hemoglobin 28.6 pg (27.0-33.0); Mean Corpuscular Volume 95.2 fL (80.0-98.0); Monocytes Absolute Auto 0.6 X10*3/uL (0.1-1.2); Monocytes Percent Auto 5.8 % (2-11); NRBC Pct Auto 1.3 /100WBC (0.0-0.2); Neutrophils Percent Auto 84.8 % (45-73); Platelet Count 179 X10*3/uL (160-400); Red Cell Distribution Width 18.4 % (11.0-16.0); White Blood Count 10.7 X10*3/uL (4.8-10.8)
[2021-06-05 05:30] LABS: VBG Base Excess 2.9 mmol/L; VBG HCO3 28 mmol/L (22-26); VBG pCO2 46 mmHg; VBG pH 7.38 (7.32-7.43); VBG pO2 53 mmHg
[2021-06-05 05:56] LABS: Alanine Aminotransferase 27 U/L (0-40); Albumin Level 2.7 g/dL (3.5-5.0); Alkaline Phosphatase 49 U/L (39-117); Anion Gap 12 (12-20); Aspartate Amino Transferase 18 U/L (5-37); Bilirubin Total 0.6 mg/dL (0.0-1.0); Blood Urea Nitrogen 80 mg/dL (9-16); Calcium 8.9 mg/dL (8.4-10.2); Carbon Dioxide 26 mmol/L (22-29); Chloride 111 mmol/L (96-108); Creatinine Clr Calc Pharmacy 98.8; Estimated Glomerular Filt Rate > 60; Glucose Random 220 mg/dL (60-115); Magnesium 2.1 mg/dL (1.6-2.6); Phosphorus 4.3 mg/dL (2.7-4.5); Potassium 4.2 mmol/L (3.3-5.1); Sodium 145 mmol/L (135-145); Total Protein 5.2 g/dL (6.5-8.0)
[2021-06-05 06:03] LABS: Venous Blood Gas Refer to POC result
[2021-06-05] MEDS: Aspirin 81 MG TAB.CHEW 324 MG NG-TUBE (08:30)
[2021-06-05] MEDS: methylPREDNISolone Sod Succ 40 MG/ML VIAL IVPUSH (08:38)
[2021-06-05] MEDS: Thiamine HCL 200 MG in 0.9 % Sodium Chloride 100 ML 204 MG IV (08:38)
[2021-06-05] MEDS: 0.9 % Sodium Chloride Flush 3 ML SYRINGE IVFLUSH ×3 (08:38→23:33)
[2021-06-05] MEDS: Chlorhexidine Gluc Oral Rinse 15 ML MOUTHWASH BUCCAL ×3 (08:38→20:13)
[2021-06-05] MEDS: Cholecalciferol (Vitamin D3) 25 MCG TABLET 50 MCG NG-TUBE (08:40)
[2021-06-05] MEDS: Insulin Glargine,Hum.rec.anlog 100 UNIT/ML 10 ML VIAL 22 UNIT SUBCUT ×2 (08:40→20:13)
[2021-06-05] MEDS: Albumin Human 25 % 100 ML IV ×3 (08:47→20:10)
[2021-06-05] MEDS: fentaNYL citrate/NS 1,000 MCG/100 ML PLAST..BAG 15 MCG IVCONT ×3 (08:52→21:39)
--- NOTE | 2021-06-05 10:06 | P.PNNP_ITS ---
Subjective Subjective Date of Service: 06/05/21 Principal diagnosis: COVID, JÚNIOR, CKD Interval history: Mr. Roberson was transferred to ICU on May 09 bec of progressive hypoxemic respiratory failure 2? to COVID pneumonia. The patient is a 66-year-old male with past medical history of HTN, diabetes, CKD (baseline creatinine about 2.1), and CHF.? He is on furosemide and Kayexalate and insulin at home. The patient was diagnosed with COVID on April 19 after a few days flu like symptoms.? (My estimation of symptom onset date:? April 17, or earlier.)? Presented to the ED on April 28 w SOB and Sat 60s.? Admitted to Medicine with COVID pneumonia and treated in the usual fashion.? Subsequently transferred to ICU on May 09 and intubated on May 13 See prev note of 05/31 for full hospital course details.? He?s had problems with slow heart rate and 2? heart block Mobitz type 1, had a temporary PM put in for a few days.? Also had one episode of lower GI bleeding, which resolved on its own, he was not scoped. This week we?ve been doing PSV trials.? Failed quickly the last two days.? 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 I started him on Provigil earlier this week, but it had no discernible effect, so we d/c?d it.? We started diuresis on 06/02 and put him on a Lasix drip today.? I?ve booked him for a tracheostomy this week, tentatively planned for Sat.? Spoke with his and she readily agrees. ?She asked me if she could come in and see him.? I spoke with the nursing casino floor supervisor and was given permission for a visit at a time of her choosing. Currently sedated on propofol at 40ug, fentanyl at 125ug.? We had him on prop at 20ug earlier, but he lightened up and BP and RR went up.? HR now 50, SR with 1? block.? Blood pressure 148/61.? He continues afebrile.? On AC 14/500/35%/+8, RR is 18, Ve is 8.5L, PIP 26, ETCO2 31, sat 94%.? CVBG this morning showed 7.35/44/0.? No PSV trial today (waiting for diuresis).? No JVD.? Chest clear, normal exp phase.? Abdomen benign.? 1+ central edema. LABORATORY DATA: ?Below.? Notably, WBC up today, Sodium down, BUN/creat and pota ssium steady, POCs running mid 100s on the increased dose of Lantus.? DDimer, Ferrtin, and LDH are down, BNP is up. Covid PCR sent 05/29 ?was still positive. Last chest x-ray done May 31 after the tracheal tube change (bec of inspisated secretions) shows stable diffuse bilateral interstitial and airspace disease, unchanged from the previous film. IMPRESSION: 1. COVID pneumonia.? Symptom onset date Apr 17 or earlier.? I?m surprised that his COVID swab is still positive.? May 29 we changed steroids to Solu-Medrol 40 mg bid, added aspirin, vitamin-D, thiamine, and atorvastatin.? I ordered another COVID test for tomorrow. 2. Bilat pulmonary infiltrates with ARDS.? 2? to above. 3. Hypoxemic respiratory failure.? Secondary to above.? Oxygenation has dramatically improved.? He looks like he?ll survive, but he?s too weak to wean.? Provigil hasn?t done anything.? Dr. Patel will schedule a tracheostomy for this week, probably Saturday. 4. Baseline CKD.? BUN/creat are coming down and potassium is now down.? Continuing the Lokelma.? (He was on Kayexelate at home.)? Started a Lasix drip today.? We?ll see how his renal indices respond. 4. Baseline DM.? On Lantus and sliding scale. 5. Baseline CHF.? BNP was 1098 on admission.? He was diuresed and the BNP came down to 106.? Back up over last few days.? Started diuresing him on Jun 02. 6. ? Aortic stenosis.? Need to redo his echo to get a better look at the valve. 7. GI bleed.? No source identified.? The patient is back on DVT prophylaxis, aspirin, and steroids.? Added bid PPI.? No further evidence of bleeding. 8. ID.? No clear evidence of sepsis or other bacterial infection.? All repeat cultures were negative on May 30 and .? No indication for antibiotics at this time. 9. Metabolic:? Hyperkalemic.? As above. 11. Hyperntremia.? Resolved w D5W. 12. Nutrition:? On goal rate Nepro. Physical Exam Vital Signs: Vital Signs: Last Vital Signs Temp 96.3 F L 06/05/21 08:00 Pulse 56 06/05/21 09:00 Resp 12 06/05/21 09:00 BP 166/67 H 06/05/21 09:00 Pulse Ox 93 06/05/21 09:00 Oxygen Flow Rate 15 04/28/21 21:37 BMI result Body Mass Index 30.9 Const: Other: Intubated General: cooperative, comfortable, no acute distress, ill appearing and other ( sedated on the vent) Orientation/consciousness: patient oriented x3 HENMT: Other: Unremarkable Head: Yes normal to inspection, Yes normocephalic and Yes atraumatic Mouth: Normal oral and palatal mucosa present Eyes: General: appearance normal, both eyes and all related structures Sclerae: sclerae normal Pupils: Equal, round and reactive pupils present EOM: EOMs intact bilaterally Neck: Neck: Yes normal visual inspection, Yes no lymphadenopathy, Yes trachea midline and Yes supple Chest: Chest palpation & inspection: normal inspection of the chest and No rash Resp: Effort & Inspection: normal respiratory effort, able to speak in complete sentences, audible wheezes, labored and no respiratory distress Auscultation: crackles ( diffuse bilateral) and diminished lung sounds Cardio: Jugular venous distension: no JVD Palpation: normal PMI and no palpable S3 Rate: regular rate and tachycardic Rhythm: regular rhythm Heart sounds: S1 normal heart sound present, S2 normal heart sound present, no gallops, no murmurs and no rubs GI: Palpation (GI): Soft to palpation, nontender and Other GI palpation findings present ( Nontender) Auscultation: normal bowel sounds Back/Spine/Pelvis: Other: unremarkable Skin: General skin exam: no rashes or lesions noted Neuro: Other: Sedated General: patient oriented x3 Cranial nerves: Yes Equal, round and reactive pupils present and Yes Other cranial nerve findings present Cognition (Neuro): normal cognition Motor exam (neuro): No Asterixis during motor activity present Extrem: General: Yes normal to inspection, Yes no clubbing, cyanosis or edema, Yes no pedal edema, No clubbing, No cyanosis and Yes pedal edema ( trace bilat eral) Psych: Mental Status: other Objective Data Labs CBC & Chem 7: 06/05/21 05:20 06/05/21 05:20 Labs: Laboratory Results - last 24 hr 06/04/21 06/04/21 06/05/21 11:55 17:57 00:14 WBC RBC Hgb Hct MCV MCH MCHC RDW Plt Count MPV Immature Gran % (Auto) Neut % (Auto) Lymph % (Auto) [place] % (Auto) Eos % (Auto) Baso % (Auto) Lymph # (Auto) [place] # (Auto) Eos # (Auto) Baso # (Auto) Abs Immat Gran (auto) Absolute Neuts (auto) Absolute Nucleated RBC Nucleated RBC % (auto) VBG pH VBG pCO2 VBG pO2 VBG HCO3 VBG O2 Saturation VBG Base Excess Sodium Potassium Chloride Carbon Dioxide Anion Gap BUN Creatinine Estim Creat Clear Calc Estimated GFR POC Glucose 165 H 201 H 215 H Random Glucose Calcium Phosphorus Magnesium Total Bilirubin AST ALT Alkaline Phosphatase Total Protein Albumin 06/05/21 06/05/21 06/05/21 05:17 05:20 05:20 WBC 10.7 RBC 2.90 L Hgb 8.3 L Hct 27.6 L MCV 95.2 MCH 28.6 MCHC 30.1 L RDW 18.4 H Plt Count 179 MPV 11.0 Immature Gran % (Auto) 4.2 H Neut % (Auto) 84.8 H Lymph % (Auto) 5.0 L [place] % (Auto) 5.8 Eos % (Auto) 0.0 Baso % (Auto) 0.2 Lymph # (Auto) 0.5 L [place] # (Auto) 0.6 Eos # (Auto) 0.0 Baso # (Auto) 0.0 Abs Immat Gran (auto) 0.45 H Absolute Neuts (auto) 9.0 H Absolute Nucleated RBC 0.140 H Nucleated RBC % (auto) 1.3 H VBG pH VBG pCO2 VBG pO2 VBG HCO3 VBG O2 Saturation VBG Base Excess Sodium 145 Potassium 4.2 Chloride 111 H Carbon Dioxide 26 Anion Gap 12 BUN 80 H Creatinine 0.91 Estim Creat Clear Calc 98.8 Estimated GFR > 60 POC Glucose 187 H Random Glucose 220 H Calcium 8.9 Phosphorus 4.3 Magnesium 2.1 Total Bilirubin 0.6 AST 18 ALT 27 Alkaline Phosphatase 49 Total Protein 5.2 L Albumin 2.7 L 06/05/21 05:23 WBC RBC Hgb Hct MCV MCH MCHC RDW Plt Count MPV Immature Gran % (Auto) Neut % (Auto) Lymph % (Auto) [place] % (Auto) Eos % (Auto) Baso % (Auto) Lymph # (Auto) [place] # (Auto) Eos # (Auto) Baso # (Auto) Abs Immat Gran (auto) Absolute Neuts (auto) Absolute Nucleated RBC Nucleated RBC % (auto) VBG pH 7.38 VBG pCO2 46 VBG pO2 53 VBG HCO3 28 H VBG O2 Saturation 82.0 VBG Base Excess 2.9 Sodium Potassium Chloride Carbon Dioxide Anion Gap BUN Creatinine Estim Creat Clear Calc Estimated GFR POC Glucose Random Glucose Calcium Phosphorus Magnesium Total Bilirubin AST ALT Alkaline Phosphatase Total Protein Albumin Microbiology Microbiology Results: Microbiology 05/30/21 16:15 Blood - Venous Blood Culture - Final No growth after 5 days. 05/30/21 16:15 Blood - Venous Blood Culture - Final No growth after 5 days. 05/31/21 00:50 Urine Catheterized - Camacho Catheter Urine Culture - Final No growth. 05/26/21 06:44 Blood - Venous Blood Culture - Final No growth after 5 days. 05/26/21 06:44 Blood - Venous Blood Culture - Final No growth after 5 days. 05/28/21 11:25 Sputum - Suctioned Gram Stain - Final 05/28/21 11:25 Sputum - Suctioned Sputum Culture - Final 05/22/21 11:32 Urine Catheterized - Camacho Catheter Urine Culture - Final Serratia marcescens 05/19/21 16:47 Blood - Venous Blood Culture - Final No growth after 5 days. 05/19/21 16:49 Blood - Venous Blood Culture - Final No growth after 5 days. 05/22/21 15:44 Sputum - Suctioned Gram Stain - Final 05/22/21 15:44 Sputum - Suctioned Sputum Culture - Final 05/15/21 08:25 Blood - Venous Blood Culture - Final No growth after 5 days. 05/15/21 08:25 Blood - Venous Blood Culture - Final No growth after 5 days. 05/17/21 15:20 Sputum - Suctioned Gram Stain - Final 05/17/21 15:20 Sputum - Suctioned Sputum Culture - Final 05/13/21 Unknown Urine Catheterized - Camacho Catheter Urine Culture - Final Serratia marcescens 04/28/21 22:17 Blood - Venous Blood Culture - Final No growth after 5 days. 04/28/21 22:17 Blood - Venous Blood Culture - Final No growth after 5 days. Procedures Date of Service Date of Service: 06/05/21 Assessment & Plan Assessment and plan (1) CKD (chronic kidney disease) stage 3, GFR 30-59 ml/min: Status: Acute (2) SARS-CoV-2 positive: Status: Acute Assessment and Plan: kidney function stable at baseline JÚNIOR due to compromised kidney perfusion in the setting of SARS COV 2 resolved known CKD 3 due to DM/HTN followed by Dr Feldman potassium controlled REC sodium zirconium as needed follow kidney function and electrolytes i will sign off please call for ? Time Spent With Patient Time: Total time spent is greater than 50% in coordination of care (as documented) at patient's floor/unit and/or counseling patient: Progress Note: Quality Stroke Does the patient have a stroke diagnosis?: No
--- NOTE | 2021-06-05 10:24 | MHC.CLN ---
F/U TUBE FEEDING RUNNING AT MAX GOAL RATE NEPRO 35 ML PER HOUR AND FLUSH 120 ML WATER Q 8 HOURS. TUBE FEEDING PROVIDES 2037 KCAL WITH SEDATION (23.4 KCALS/KG CMW); 68 G PROTEIN (.78 G/KG CMW); FORMULA PLUS FLUSH 971 ML WATER (11.1 ML/KG CMW).TOLERATING TUBE FEEDING. PLAN FOR TRACH PLACEMENT 06/07. FOLLOWING WITH TEAM.
--- NOTE | 2021-06-05 11:07 | P.PNCC_ITS ---
Subjective Subjective Date of Service: 06/05/21 Interval History: 66-year-old gentleman with underlying history hypertension congestive heart failure, diabetes mellitus, COVID positive on 04/19/2021, admitted on 04/28/2021 with shortness of breath and hypoxemia. Patient treated with systemic glucocorticoids. hospital course significant for worsening hypoxemia requiring transfer to intensive care unit on 05/09/2021 and intubation on 05/13/2021, progressive acute kidney injury, and development of Mobitz type 2 block requiring placement of temporary pacer on 05/13/2021. Temporary pacer taken out on 05/17/2021.With slowly improving oxygenation, however recovery further complicated by ICU myopathy, planned for tracheostomy. No events overnight. Critical Care Time (minutes): 30 Physical Exam Vital Signs: Vital Signs: Last Vital Signs Temp 96.3 F L 06/05/21 08:00 Pulse 55 06/05/21 10:00 Resp 15 06/05/21 10:00 BP 181/113 H 06/05/21 10:00 Pulse Ox 94 06/05/21 10:00 Oxygen Flow Rate 15 04/28/21 21:37 BMI result Body Mass Index 30.9 Const: General: no acute distress and other ( Sedated on the vent, arousable with sedation vacation) Eyes: Sclerae: sclerae normal EOM: EOMs intact bilaterally Neck: Neck: Yes no lymphadenopathy, Yes trachea midline and Yes supple Resp: Auscultation: clear to auscultation bilaterally Cardio: Rate: regular rate Rhythm: regular rhythm Heart sounds: no berman ps, no murmurs and no rubs GI: Palpation (GI): Soft to palpation and Other GI palpation findings present ( Nontender) Auscultation: normal bowel sounds Extrem: General: No clubbing, No cyanosis and Yes edema ( 1+ bilateral) Objective Data Labs CBC & Chem 7: 06/05/21 05:20 06/05/21 05:20 Labs: Laboratory Results - last 24 hr 06/04/21 06/04/21 06/05/21 11:55 17:57 00:14 WBC RBC Hgb Hct MCV MCH MCHC RDW Plt Count MPV Immature Gran % (Auto) Neut % (Auto) Lymph % (Auto) [place] % (Auto) Eos % (Auto) Baso % (Auto) Lymph # (Auto) [place] # (Auto) Eos # (Auto) Baso # (Auto) Abs Immat Gran (auto) Absolute Neuts (auto) Absolute Nucleated RBC Nucleated RBC % (auto) VBG pH VBG pCO2 VBG pO2 VBG HCO3 VBG O2 Saturation VBG Base Excess Sodium Potassium Chloride Carbon Dioxide Anion Gap BUN Creatinine Estim Creat Clear Calc Estimated GFR POC Glucose 165 H 201 H 215 H Random Glucose Calcium Phosphorus Magnesium Total Bilirubin AST ALT Alkaline Phosphatase Total Protein Albumin 06/05/21 06/05/21 06/05/21 05:17 05:20 05:20 WBC 10.7 RBC 2.90 L Hgb 8.3 L Hct 27.6 L MCV 95.2 MCH 28.6 MCHC 30.1 L RDW 18.4 H Plt Count 179 MPV 11.0 Immature Gran % (Auto) 4.2 H Neut % (Auto) 84.8 H Lymph % (Auto) 5.0 L [place] % (Auto) 5.8 Eos % (Auto) 0.0 Baso % (Auto) 0.2 Lymph # (Auto) 0.5 L [place] # (Auto) 0.6 Eos # (Auto) 0.0 Baso # (Auto) 0.0 Abs Immat Gran (auto) 0.45 H Absolute Neuts (auto) 9.0 H Absolute Nucleated RBC 0.140 H Nucleated RBC % (auto) 1.3 H VBG pH VBG pCO2 VBG pO2 VBG HCO3 VBG O2 Saturation VBG Base Excess Sodium 145 Potassium 4.2 Chloride 111 H Carbon Dioxide 26 Anion Gap 12 BUN 80 H Creatinine 0.91 Estim Creat Clear Calc 98.8 Estimated GFR > 60 POC Glucose 187 H Random Glucose 220 H Calcium 8.9 Phosphorus 4.3 Magnesium 2.1 Total Bilirubin 0.6 AST 18 ALT 27 Alkaline Phosphatase 49 Total Protein 5.2 L Albumin 2.7 L 06/05/21 05:23 WBC RBC Hgb Hct MCV MCH MCHC RDW Plt Count MPV Immature Gran % (Auto) Neut % (Auto) Lymph % (Auto) [place] % (Auto) Eos % (Auto) Baso % (Auto) Lymph # (Auto) [place] # (Auto) Eos # (Auto) Baso # (Auto) Abs Immat Gran (auto) Absolute Neuts (auto) Absolute Nucleated RBC Nucleated RBC % (auto) VBG pH 7.38 VBG pCO2 46 VBG pO2 53 VBG HCO3 28 H VBG O2 Saturation 82.0 VBG Base Excess 2.9 Sodium Potassium Chloride Carbon Dioxide Anion Gap BUN Creatinine Estim Creat Clear Calc Estimated GFR POC Glucose Random Glucose Calcium Phosphorus Magnesium Total Bilirubin AST ALT Alkaline Phosphatase Total Protein Albumin Microbiology Microbiology Results: Microbiology 05/30/21 16:15 Blood - Venous Blood Culture - Final No growth after 5 days. 05/30/21 16:15 Blood - Venous Blood Culture - Final No growth after 5 days. 05/31/21 00:50 Urine Catheterized - Camacho Catheter Urine Culture - Final No growth. 05/26/21 06:44 Blood - Venous Blood Culture - Final No growth after 5 days. 05/26/21 06:44 Blood - Venous Blood Culture - Final No growth after 5 days. 05/28/21 11:25 Sputum - Suctioned Gram Stain - Final 05/28/21 11:25 Sputum - Suctioned Sputum Culture - Final 05/22/21 11:32 Urine Catheterized - Camacho Catheter Urine Culture - Final Serratia marcescens 05/19/21 16:47 Blood - Venous Blood Culture - Final No growth after 5 days. 05/19/21 16:49 Blood - Venous Blood Culture - Final No growth after 5 days. 05/22/21 15:44 Sputum - Suctioned Gram Stain - Final 05/22/21 15:44 Sputum - Suctioned Sputum Culture - Final 05/15/21 08:25 Blood - Venous Blood Culture - Final No growth after 5 days. 05/15/21 08:25 Blood - Venous Blood Culture - Final No growth after 5 days. 05/17/21 15:20 Sputum - Suctioned Gram Stain - Final 05/17/21 15:20 Sputum - Suctioned Sputum Culture - Final 05/13/21 Unknown Urine Catheterized - Camacho Catheter Urine Culture - Final Serratia marcescens 04/28/21 22:17 Blood - Venous Blood Culture - Final No growth after 5 days. 04/28/21 22:17 Blood - Venous Blood Culture - Final No growth after 5 days. Progress Note: A&P Assessment and plan (1) Diabetes: Status: Acute (2) CHF (congestive heart failure): Status: Acute (3) Type 2 diabetes mellitus: Status: Acute (4) SARS-CoV-2 positive: Status: Acute (5) CKD (chronic kidney disease) stage 3, GFR 30-59 ml/min: Status: Acute (6) Acute hypoxemic respiratory failure due to COVID-19: Status: Acute Assessment and Plan: Assessment: 66-year-old gentleman with underlying history of hypertension, CHF, diabetes mellitus admitted with acute hypoxic respiratory failure secondary to COVID-19 ARDS, requiring ventilatory support and further complicated by slow recovery, ventilator dependence, ICU myopathy Plan: Neuro: ICU myopathy, start aggressive physical therapy. Cardiac: Mobitz type 2 status post temporary pacemaker, removed 01/27/2021, as patient has not required any pacing for 48 hours prior. Cardiology service care appreciated. Underlying congestive heart failure. Continue with judicious diuresis. Underlying AFib, Eliquis held secondary to minor GI bleed, now on aspirin. Pulmonary: Acute hypoxic respiratory failure secondary to COVID-19 ARDS now requiring ventilatory support. FiO2 requirements improved significantly. Continues to fail pressure support trials. Planned for tracheostomy. Renal: Acute renal failure on the background of chronic kidney disease, likely secondary to COVID-19 , resolved. Renal function improved. Nephrology service care appreciated. Continue to monitor electrolytes, renal indices, and urine output. Endo: No acute issues. GI: No acute issues. ID: COVID-19, on systemic glucocorticoids. Heme/Onc: No acute issues. Psych: No acute issues. Miscellaneous: No acute issues. Prophylaxis: heparin , omeprazole Diet: tube feeds Critical care time spent: 30 minutes Quality Stroke Does the patient have a stroke diagnosis?: No VTE Prior VTE?: No VTE Risk Level:: Medical - moderate - high VTE Device Contraindication: Treatment Not Indicated VTE Drug Contraindication: N/A - Med Ordered
[2021-06-05 12:46] LABS: Glucose, Whole Blood 231 mg/dL (60-115)
[2021-06-05] MEDS: Furosemide 200 MG in 0.9 % Sodium Chloride 80 ML IVCONT (16:04)
--- NOTE | 2021-06-05 16:44 | PC.NURSE ---
RECTAL TUBE REMOVED.
[2021-06-05 18:16] LABS: Glucose, Whole Blood 214 mg/dL (60-115)
[2021-06-05] MEDS: Atorvastatin Calcium 80 MG TABLET PO (20:13)
[2021-06-05 23:38] LABS: Glucose, Whole Blood 151 mg/dL (60-115)
[2021-06-06] VITALS (31 sets, daily range): BP systolic 93–193; BP diastolic 41–78; PULSE 41–68; RESP 11–18; TEMP 34.9–37.2; O2SAT 91–99; BMI 30.9
[2021-06-06] MEDS: propofoL 1,000 MG/100 ML VIAL 24.1 MG IVCONT ×5 (01:14→17:10)
[2021-06-06] MEDS: Albumin Human 25 % 100 ML IV (03:10)
[2021-06-06] MEDS: Metoclopramide HCl 10 MG/2 ML VIAL 5 MG IVPUSH ×4 (03:13→22:00)
[2021-06-06] MEDS: Heparin Sodium,Porcine 5,000 UNIT/ML VIAL 5000 UNIT SUBCUT ×2 (03:14→09:07)
[2021-06-06] MEDS: fentaNYL citrate/NS 1,000 MCG/100 ML PLAST..BAG 15 MCG IVCONT ×4 (04:20→22:00)
--- NOTE | 2021-06-06 05:35 | PC.NURSE ---
CARE ASSUMED 23:15...REMAINS TUBED/VENT...VCV/AC MODE..OPENS EYES--WEAKLY [place]--DOES NOT FOLLOW COMMANDS..PROPOFOL/FENTANYL/LASIX DRIPS PER AUG...COOK MARK-YELLOW URINE...BP STABLE..MONITOR MOBITZ 1 2:1 CONDUCTION VS MOBITZ 2...HR 48...AFEBRILE...TOLERATING TUBE FEEDS...PER REPORT ?PLAN FOR TRACH/PEG SATURDAY (06/07)
[2021-06-06 05:40] LABS: Glucose, Whole Blood 94 mg/dL (60-115)
[2021-06-06 05:41] LABS: MANUAL DIFF FLAG NO
[2021-06-06 05:41] LABS: VBG HCO3 31 mmol/L (22-26); VBG pCO2 51 mmHg; VBG pH 7.39 (7.32-7.43); VBG pO2 47 mmHg
[2021-06-06 05:44] LABS: Venous Blood Gas Refer to POC result
[2021-06-06 05:46] LABS: Basophils Percent Auto 0.1 % (0-2); Eosinophils Percent Auto 0.4 % (0-4); Hematocrit 24.5 % (42.0-52.0); Hemoglobin 7.3 g/dl (14.0-18.0); Imm Gran Abs Auto 0.35 X10*3/uL (0.00-0.03); Imm Gran Pct Auto 3.5 % (0.0-0.4); Lymphocytes Absolute Auto 1.1 X10*3/uL (1.2-4.9); Lymphocytes Percent Auto 11.5 % (20-40); Mean Corpuscular HGB Conc 29.8 g/dl (31.0-36.0); Mean Corpuscular Hemoglobin 29.1 pg (27.0-33.0); Mean Corpuscular Volume 97.6 fL (80.0-98.0); Mean Platelet Volume 11.1 fL (9.4-12.4); Monocytes Percent Auto 9.8 % (2-11); NRBC Pct Auto 1.5 /100WBC (0.0-0.2); Neutrophils Absolute Auto 7.4 x10*3/uL (2.0-8.3); Neutrophils Percent Auto 74.7 % (45-73); Platelet Count 153 X10*3/uL (160-400); Red Blood Count 2.51 X10*6/uL (4.60-5.80); Red Cell Distribution Width 19.3 % (11.0-16.0); White Blood Count 9.9 X10*3/uL (4.8-10.8)
[2021-06-06 06:09] LABS: Carbon Dioxide 30 mmol/L (22-29); Chloride 112 mmol/L (96-108); Potassium 3.5 mmol/L (3.3-5.1); Sodium 150 mmol/L (135-145)
[2021-06-06 06:10] LABS: Anion Gap 12 (12-20); Blood Urea Nitrogen 89 mg/dL (9-16); Calcium 9.4 mg/dL (8.4-10.2); Creatinine Clr Calc Pharmacy 99.2; Estimated Glomerular Filt Rate > 60; Glucose Random 98 mg/dL (60-115); Magnesium 2.1 mg/dL (1.6-2.6); Phosphorus 3.7 mg/dL (2.7-4.5)
[2021-06-06 06:11] LABS: Albumin Level 3.5 g/dL (3.5-5.0)
[2021-06-06] MEDS: Chlorhexidine Gluc Oral Rinse 15 ML MOUTHWASH BUCCAL ×3 (09:07→20:20)
[2021-06-06] MEDS: methylPREDNISolone Sod Succ 40 MG/ML VIAL IVPUSH (09:07)
[2021-06-06] MEDS: Aspirin 81 MG TAB.CHEW 324 MG NG-TUBE (09:08)
[2021-06-06] MEDS: Potassium Chloride/H20 40 MEQ/100 ML PIGGYBACK 50 MEQ IV (09:08)
[2021-06-06] MEDS: 0.9 % Sodium Chloride Flush 3 ML SYRINGE IVFLUSH ×2 (09:08→16:03)
[2021-06-06] MEDS: Insulin Glargine,Hum.rec.anlog 100 UNIT/ML 10 ML VIAL 22 UNIT SUBCUT ×2 (09:09→20:23)
--- NOTE | 2021-06-06 10:30 | PC.NURSE ---
Skin/Wound assessment compl;eted today. Patient has Stage 2 pressure ulcers to buttocks and coccyx. Triad applied around wounds and silver alginate applied to wound beds covered with ABD pad and tape. No other skin issues noted at this time. Patient was unstable for a few days last week and couyld not be repositioned which contributed to the ulcers worsening now patient is stable and is being repositioned every 2 hours.
--- NOTE | 2021-06-06 10:48 | P.PNCC_ITS ---
Subjective Subjective Date of Service: 06/06/21 Interval History: 66-year-old gentleman with underlying history hypertension congestive heart failure, diabetes mellitus, COVID positive on 04/19/2021, admitted on 04/28/2021 with shortness of breath and hypoxemia. Patient treated with systemic glucocorticoids. hospital course significant for worsening hypoxemia requiring transfer to intensive care unit on 05/09/2021 and intubation on 05/13/2021, progressive acute kidney injury, and development of Mobitz type 2 block requiring placement of temporary pacer on 05/13/2021. Temporary pacer taken out on 05/17/2021.With slowly improving oxygenation, however recovery further complicated by ICU myopathy, planned for tracheostomy on 06/07/2021. No events overnight. Critical Care Time (minutes): 30 Physical Exam Vital Signs: Vital Signs: Last Vital Signs Temp 98.2 F 06/06/21 10:00 Pulse 63 06/06/21 10:00 Resp 18 06/06/21 10:00 BP 140/44 H 06/06/21 10:00 Pulse Ox 91 L 06/06/21 10:00 Oxygen Flow Rate 15 04/28/21 21:37 BMI result Body Mass Index 30.9 Const: General: no acute distress and other (Sedated on the vent, follows commands with sedation vacation) Eyes: Sclerae: sclerae normal EOM: EOMs intact bilaterally Neck: Neck: Yes no lymphadenopathy, Yes trachea midline and Yes supple Resp: Auscultation: clear to auscultation bilaterally Cardio: Rate: regular rate Rhythm: regular rhythm Heart sounds: no gallops, no murmurs and no rubs GI: Palpation (GI): Soft to palpation and Other GI palpation findings present ( Nontender) Auscultation: normal bowel sounds Extrem: General: No clubbing, No cyanosis and Yes pedal edema (Trace bilateral) Objective Data Labs CBC & Chem 7: 06/06/21 05:35 06/06/21 05:35 Labs: Laboratory Results - last 24 hr 06/05/21 06/05/21 06/05/21 12:40 18:11 23:25 WBC RBC Hgb Hct MCV MCH MCHC RDW Plt Count MPV Immature Gran % (Auto) Neut % (Auto) Lymph % (Auto) [place] % (Auto) Eos % (Auto) Baso % (Auto) Lymph # (Auto) [place] # (Auto) Eos # (Auto) Baso # (Auto) Abs Immat Gran (auto) Absolute Neuts (auto) Absolute Nucleated RBC Nucleated RBC % (auto) VBG pH VBG pCO2 VBG pO2 VBG HCO3 VBG O2 Saturation VBG Base Excess Sodium Potassium Chloride Carbon Dioxide Anion Gap BUN Creatinine Estim Creat Clear Calc Estimated GFR POC Glucose 231 H 214 H 151 H Random Glucose Calcium Phosphorus Magnesium Albumin Blood Type Antibody Screen 06/06/21 06/06/21 06/06/21 05:32 05:34 05:35 WBC 9.9 RBC 2.51 L Hgb 7.3 L Hct 24.5 L MCV 97.6 MCH 29.1 MCHC 29.8 L RDW 19.3 H Plt Count 153 L MPV 11.1 Immature Gran % (Auto) 3.5 H Neut % (Auto) 74.7 H Lymph % (Auto) 11.5 L [place] % (Auto) 9.8 Eos % (Auto) 0.4 Baso % (Auto) 0.1 Lymph # (Auto) 1.1 L [place] # (Auto) 1.0 Eos # (Auto) 0.0 Baso # (Auto) 0.0 Abs Immat Gran (auto) 0.35 H Absolute Neuts (auto) 7.4 Absolute Nucleated RBC 0.150 H Nucleated RBC % (auto) 1.5 H VBG pH 7.39 VBG pCO2 51 VBG pO2 47 VBG HCO3 31 H VBG O2 Saturation 76.0 VBG Base Excess 6.0 Sodium Potassium Chloride Carbon Dioxide Anion Gap BUN Creatinine Estim Creat Clear Calc Estimated GFR POC Glucose 94 Random Glucose Calcium Phosphorus Magnesium Albumin Blood Type Antibody Screen 06/06/21 06/06/21 05:35 09:46 WBC RBC Hgb Hct MCV MCH MCHC RDW Plt Count MPV Immature Gran % (Auto) Neut % (Auto) Lymph % (Auto) [place] % (Auto) Eos % (Auto) Baso % (Auto) Lymph # (Auto) [place] # (Auto) Eos # (Auto) Baso # (Auto) Abs Immat Gran (auto) Absolute Neuts (auto) Absolute Nucleated RBC Nucleated RBC % (auto) VBG pH VBG pCO2 VBG pO2 VBG HCO3 VBG O2 Saturation VBG Base Excess Sodium 150 H Potassium 3.5 Chloride 112 H Carbon Dioxide 30 H Anion Gap 12 BUN 89 H Creatinine 0.91 Estim Creat Clear Calc 99.2 Estimated GFR > 60 POC Glucose Random Glucose 98 D Calcium 9.4 Phosphorus 3.7 Magnesium 2.1 Albumin 3.5 D Blood Type A Negative Antibody Screen NEGATIVE Microbiology Microbiology Results: Microbiology 05/30/21 16:15 Blood - Venous Blood Culture - Final No growth after 5 days. 05/30/21 16:15 Blood - Venous Blood Culture - Final No growth after 5 days. 05/31/21 00:50 Urine Catheterized - Camacho Catheter Urine Culture - Final No growth. 05/26/21 06:44 Blood - Venous Blood Culture - Final No growth after 5 days. 05/26/21 06:44 Blood - Venous Blood Culture - Final No growth after 5 days. 05/28/21 11:25 Sputum - Suctioned Gram Stain - Final 05/28/21 11:25 Sputum - Suctioned Sputum Culture - Final 05/22/21 11:32 Urine Catheterized - Camacho Catheter Urine Culture - Final Serratia marcescens 05/19/21 16:47 Blood - Venous Blood Culture - Final No growth after 5 days. 05/19/21 16:49 Blood - Venous Blood Culture - Final No growth after 5 days. 05/22/21 15:44 Sputum - Suctioned Gram Stain - Final 05/22/21 15:44 Sputum - Suctioned Sputum Culture - Final 05/15/21 08:25 Blood - Venous Blood Culture - Final No growth after 5 days. 05/15/21 08:25 Blood - Venous Blood Culture - Final No growth after 5 days. 05/17/21 15:20 Sputum - Suctioned Gram Stain - Final 05/17/21 15:20 Sputum - Suctioned Sputum Culture - Final 05/13/21 Unknown Urine Catheterized - Camacho Catheter Urine Culture - Final Serratia marcescens 04/28/21 22:17 Blood - Venous Blood Culture - Final No growth after 5 days. 04/28/21 22:17 Blood - Venous Blood Culture - Final No growth after 5 days. Progress Note: A&P Assessment and plan (1) Diabetes: Status: Acute (2) Aortic stenosis due to bicuspid aortic valve: Status: Acute (3) AV block: Status: Acute (4) Type 2 diabetes mellitus: Status: Acute (5) Acute hypoxemic respiratory failure due to COVID-19: Status: Acute (6) ARDS (adult respiratory distress syndrome): Status: Acute (7) Chronic renal failure: Status: Acute (8) Myopathy: Status: Acute Assessment and Plan: Assessment: 66-year-old gentleman with underlying history of hypertension, CHF, diabetes mellitus admitted with acute hypoxic respiratory failure secondary to COVID-19 ARDS, requiring ventilatory support and further complicated by slow recovery, ventilator dependence, and ICU myopathy Plan: Neuro: ICU myopathy, continue aggressive physical therapy. Cardiac: Mobitz type 2 status post temporary pacemaker, removed 01/27/2021, as patient has not required any pacing for 48 hours prior. Cardiology service care appreciated. Underlying congestive heart failure. Continue with judicious diuresis. Underlying AFib, Eliquis held secondary to minor GI bleed, now on aspirin. Pulmonary: Acute hypoxic respiratory failure secondary to COVID-19 ARDS now requiring ventilatory support. FiO2 requirements improved significantly. Continues to fail pressure support trials. Planned for tracheostomy. Renal: Acute renal failure on the background of chronic kidney disease, likely secondary to COVID-19 , resolved. Renal function improved. Nephrology service care appreciated. Continue to monitor electrolytes, renal indices, and urine output. Endo: No acute issues. GI: No acute issues. ID: COVID-19, on systemic glucocorticoids. Heme/Onc: No acute issues. Psych: No acute issues. Miscellaneous: No acute issues. Prophylaxis: heparin , omeprazole Diet: tube feeds Critical care time spent: 30 minutes Quality Stroke Does the patient have a stroke diagnosis?: No VTE Prior VTE?: No VTE Risk Level:: Medical - moderate - high VTE Device Contraindication: Treatment Not Indicated VTE Drug Contraindication: N/A - Med Ordered
[2021-06-06 12:45] LABS: Glucose, Whole Blood 120 mg/dL (60-115)
[2021-06-06] MEDS: Insulin Lispro 100 UNIT/ML 3 ML VIAL SUBCUT ×2 (13:16→18:28)
[2021-06-06 17:34] LABS: COVID-19 Test Positive (Negative)
[2021-06-06 18:17] LABS: Glucose, Whole Blood 168 mg/dL (60-115)
[2021-06-06] MEDS: Atorvastatin Calcium 80 MG TABLET PO (20:23)
[2021-06-06] MEDS: propofoL 1,000 MG/100 ML VIAL 18.07 MG IVCONT (22:00)
[2021-06-07] VITALS (32 sets, daily range): BP systolic 98–153; BP diastolic 41–92; PULSE 39–64; RESP 14–23; TEMP 33.6–38; O2SAT 90–98; BMI 31.4
[2021-06-07 00:25] LABS: Glucose, Whole Blood 152 mg/dL (60-115)
[2021-06-07] MEDS: Metoclopramide HCl 10 MG/2 ML VIAL 5 MG IVPUSH ×2 (03:38→22:35)
[2021-06-07] MEDS: DOPamine HCL/D5W 400 MG/250 ML PLAST..BAG 11.63 MG IVCONT (03:38)
[2021-06-07] MEDS: propofoL 1,000 MG/100 ML VIAL 15.06 MG IVCONT (03:38)
[2021-06-07 05:27] LABS: VBG Base Excess 6.4 mmol/L; VBG HCO3 31 mmol/L (22-26); VBG pCO2 45 mmHg; VBG pH 7.44 (7.32-7.43); VBG pO2 43 mmHg
[2021-06-07 05:37] LABS: MANUAL DIFF FLAG NO
[2021-06-07 05:42] LABS: Basophils Percent Auto 0.1 % (0-2); Eosinophils Absolute Auto 0.1 X10*3/uL (0.0-0.4); Eosinophils Percent Auto 0.4 % (0-4); Hematocrit 28.3 % (42.0-52.0); Hemoglobin 8.3 g/dl (14.0-18.0); Imm Gran Abs Auto 0.26 X10*3/uL (0.00-0.03); Lymphocytes Absolute Auto 1.4 X10*3/uL (1.2-4.9); Lymphocytes Percent Auto 10.5 % (20-40); Mean Corpuscular HGB Conc 29.3 g/dl (31.0-36.0); Mean Corpuscular Hemoglobin 28.6 pg (27.0-33.0); Mean Corpuscular Volume 97.6 fL (80.0-98.0); Mean Platelet Volume 12.2 fL (9.4-12.4); Monocytes Absolute Auto 0.9 X10*3/uL (0.1-1.2); Monocytes Percent Auto 7.1 % (2-11); Neutrophils Absolute Auto 10.5 x10*3/uL (2.0-8.3); Neutrophils Percent Auto 79.9 % (45-73); Platelet Count 150 X10*3/uL (160-400); Red Cell Distribution Width 19.9 % (11.0-16.0); White Blood Count 13.2 X10*3/uL (4.8-10.8)
[2021-06-07 05:43] LABS: NRBC Pct Auto 1.1 /100WBC (0.0-0.2)
[2021-06-07 06:13] LABS: Albumin Level 3.4 g/dL (3.5-5.0); Anion Gap 10 (12-20); Blood Urea Nitrogen 90 mg/dL (9-16); Calcium 9.5 mg/dL (8.4-10.2); Carbon Dioxide 31 mmol/L (22-29); Chloride 113 mmol/L (96-108); Creatinine Clr Calc Pharmacy 112.3; Estimated Glomerular Filt Rate > 60; Glucose Random 121 mg/dL (60-115); Magnesium 2.1 mg/dL (1.6-2.6); Phosphorus 3.1 mg/dL (2.7-4.5); Potassium 3.8 mmol/L (3.3-5.1); Sodium 150 mmol/L (135-145)
[2021-06-07] MEDS: fentaNYL citrate/NS 1,000 MCG/100 ML PLAST..BAG 10 MCG IVCONT ×2 (06:13→16:24)
[2021-06-07 06:14] LABS: Glucose, Whole Blood 111 mg/dL (60-115)
--- NOTE | 2021-06-07 06:21 | PC.NURSE ---
recieved patient. Pt sedated with propofol (30) and fentanyl (150). Pt is intubated with a 7.5 23cm at the lip AC R 14, V-500, 40% o2, peep-5. LS were adventitious throughout but after suctioning became clearer and dim. Pt neuros- pt did open eyes spontaneously but did not track. Pt would blink and occasionally bite the tube or suctioning equipment. Pt Pupils are perrl but sluggish. Pt did not follow commands. Pt was tosha in with a 1st degree block in the 30's and 40's. Dopamine was started at approximately 0330 with good effect. PT was started on a rate of 3mcg for HR control with good effect bringing the pt HR into the 50's-60's. Pt does have bilateral upper extremity +3 ptting edema. Pt has truncal edema that is non-pitting. GI- Pt was on OG tube feeds (nepro) at 35ml an hour. PT had minimal residuals. Residual at approximately 0400 was 0. Pt tube feeds were paused at midnight in anticipation of a procedure during the next day Pt does have lower abd bruising from heparin shots with the last injection site bleeding at initial assessment. Site had moderate amount of blood, site was bandaged and TRAVEL FREIGHT AND PASSENGER AGENT was notified. Heparin shots were held over night due to bleeding and anticipation of procedure during the day, maintenance service technician aware. - pt has curry catheter with output 100-150ml/hr clear yellow. Pt is generally weak. Pt skin has a stage 2 on right buttock that is bandaged with abd pad and it is clean dry intact. There is a skin tear on coccyx. Pt did desat into the mid and low 80's at approximately 0400. Pt was repositioned suctioned, and o2 was increase to 50% for approximately 20min with good effect bringing the o2 back into the mid 90's. O2 was the put back to 40% and sats were maintained. Pt was repositioned through the night with attention to o2 sat.
[2021-06-07 06:52] LABS: Venous Blood Gas Refer to POC result
[2021-06-07] MEDS: 0.9 % Sodium Chloride Flush 3 ML SYRINGE IVFLUSH ×2 (07:59→16:25)
[2021-06-07] MEDS: propofoL 1,000 MG/100 ML VIAL 21.08 MG IVCONT (07:59)
[2021-06-07] MEDS: Insulin Glargine,Hum.rec.anlog 100 UNIT/ML 10 ML VIAL 22 UNIT SUBCUT (07:59)
[2021-06-07] MEDS: methylPREDNISolone Sod Succ 40 MG/ML VIAL IVPUSH (07:59)
[2021-06-07] MEDS: Chlorhexidine Gluc Oral Rinse 15 ML MOUTHWASH BUCCAL ×3 (07:59→19:37)
[2021-06-07 09:02] LABS: Prothrombin Time 11.1 SEC (9.9-13.0)
[2021-06-07] MEDS: Dextrose 5 % 1,000 ML 50 ML IVCONT (09:30)
--- NOTE | 2021-06-07 09:50 | MHC.CLN ---
Addendum entered by Chiquis Garcias, CANDY 06/07/21 10:17: WOUNDS: STAGE II TO BUTTOCKS, STAGE II TO COCCYX. Original Note: F/U PLAN FOR TRACHEOSTOMY AND PEG PLACEMENT TODAY. WHEN ABLE, RECOMMEND TUBE FEEDING MAX GOAL RATE NEPRO 40 ML PER HOUR AND FLUSH 120 ML WATER Q 8 HOURS. TUBE FEEDING PROVIDES 1728 KCAL (21.4 KCALS/KG IBW); 77.8 G PROTEIN (.96 G/KG IBW); FORMULA PLUS FLUSH 1058 ML WATER (13.1 ML/KG IBW). FOLLOW FOR PEG PLACEMENT AND TUBE FEEDING. FOLLOWING WITH TEAM.
--- NOTE | 2021-06-07 11:05 | P.PNCC_ITS ---
Subjective Subjective Date of Service: 06/07/21 Interval History: 66-year-old gentleman with underlying history hypertension congestive heart failure, diabetes mellitus, COVID positive on 04/19/2021, admitted on 04/28/2021 with shortness of breath and hypoxemia. Patient treated with systemic glucocorticoids. hospital course significant for worsening hypoxemia requiring transfer to intensive care unit on 05/09/2021 and intubation on 05/13/2021, progressive acute kidney injury, and development of Mobitz type 2 block requiring placement of temporary pacer on 05/13/2021. Temporary pacer taken out on 05/17/2021.With slowly improving oxygenation, however recovery further complicated by ICU myopathy, planned for tracheostomy on 06/07/2021. Overnight with episodes of bradycardia down to 30s requiring initiation dopamine drip and also with development of AFlutter. Critical Care Time (minutes): 45 Physical Exam Vital Signs: Vital Signs: Last Vital Signs Temp 100.4 F 06/07/21 10:00 Pulse 61 06/07/21 10:00 Resp 15 06/07/21 10:00 BP 131/56 L 06/07/21 10:00 Pulse Ox 94 06/07/21 10:00 Oxygen Flow Rate 15 04/28/21 21:37 BMI result Body Mass Index 31.4 Const: General: no acute distress and other ( Sedated on the vent, follows commands with sedation vacation) Eyes: Sclerae: sclerae normal EOM: EOMs intact bilaterally Neck: Neck: Yes no lymphadenopathy, Yes trachea midline and Yes supple Resp: Auscultation: clear to auscultation bilaterally Cardio: Rate: bradycardic Rhythm: abnormal rhythm regularly irregular Heart sounds: no gallops, no murmurs and no rubs GI: Palpation (GI): Soft to palpation and Other GI palpation findings present ( Nontender) Auscultation: normal bowel sounds Extrem: General: No clubbing, No cyanosis and Yes pedal edema ( 1+ bilateral) Objective Data Labs CBC & Chem 7: 06/07/21 05:18 06/07/21 05:18 Labs: Laboratory Results - last 24 hr 06/06/21 06/06/21 06/06/21 12:13 16:46 18:10 WBC RBC Hgb Hct MCV MCH MCHC RDW Plt Count MPV Immature Gran % (Auto) Neut % (Auto) Lymph % (Auto) [place] % (Auto) Eos % (Auto) Baso % (Auto) Lymph # (Auto) [place] # (Auto) Eos # (Auto) Baso # (Auto) Abs Immat Gran (auto) Absolute Neuts (auto) Absolute Nucleated RBC Nucleated RBC % (auto) Smear Path Review PT INR VBG pH VBG pCO2 VBG pO2 VBG HCO3 VBG O2 Saturation VBG Base Excess Sodium Potassium Chloride Carbon Dioxide Anion Gap BUN Creatinine Estim Creat Clear Calc Estimated GFR POC Glucose 120 H 168 H Random Glucose Calcium Phosphorus Magnesium Albumin COVID-19 (MARISA) Positive A [employer] See Note 06/06/21 06/07/21 06/07/21 23:28 05:18 05:18 WBC 13.2 H RBC 2.90 L Hgb 8.3 L Hct 28.3 L MCV 97.6 MCH 28.6 MCHC 29.3 L RDW 19.9 H Plt Count 150 L MPV 12.2 Immature Gran % (Auto) 2.0 H Neut % (Auto) 79.9 H Lymph % (Auto) 10.5 L [place] % (Auto) 7.1 Eos % (Auto) 0.4 Baso % (Auto) 0.1 Lymph # (Auto) 1.4 [place] # (Auto) 0.9 Eos # (Auto) 0.1 Baso # (Auto) 0.0 Abs Immat Gran (auto) 0.26 H Absolute Neuts (auto) 10.5 H Absolute Nucleated RBC 0.140 H Nucleated RBC % (auto) 1.1 H Smear Path Review SEE NOTE PT INR VBG pH VBG pCO2 VBG pO2 VBG HCO3 VBG O2 Saturation VBG Base Excess Sodium 150 H Potassium 3.8 Chloride 113 H Carbon Dioxide 31 H Anion Gap 10 L BUN 90 H Creatinine 0.81 Estim Creat Clear Calc 112.3 Estimated GFR > 60 POC Glucose 152 H Random Glucose 121 H Calcium 9.5 Phosphorus 3.1 Magnesium 2.1 Albumin 3.4 L COVID-19 (MARISA) COVID-[employer] 06/07/21 06/07/21 06/07/21 05:21 06:10 08:34 WBC RBC Hgb Hct MCV MCH MCHC RDW Plt Count MPV Immature Gran % (Auto) Neut % (Auto) Lymph % (Auto) [place] % (Auto) Eos % (Auto) Baso % (Auto) Lymph # (Auto) [place] # (Auto) Eos # (Auto) Baso # (Auto) Abs Immat Gran (auto) Absolute Neuts (auto) Absolute Nucleated RBC Nucleated RBC % (auto) Smear Path Review PT 11.1 INR 1.0 VBG pH 7.44 H VBG pCO2 45 VBG pO2 43 VBG HCO3 31 H VBG O2 Saturation 71.0 VBG Base Excess 6.4 Sodium Potassium Chloride Carbon Dioxide Anion Gap BUN Creatinine Estim Creat Clear Calc Estimated GFR POC Glucose 111 Random Glucose Calcium Phosphorus Magnesium Albumin COVID-19 (MARISA) COVID-19 Clin Com Microbiology Microbiology Results: Microbiology 05/30/21 16:15 Blood - Venous Blood Culture - Final No growth after 5 days. 05/30/21 16:15 Blood - Venous Blood Culture - Final No growth after 5 days. 05/31/21 00:50 Urine Catheterized - Camacho Catheter Urine Culture - Final No growth. 05/26/21 06:44 Blood - Venous Blood Culture - Final No growth after 5 days. 05/26/21 06:44 Blood - Venous Blood Culture - Final No growth after 5 days. 05/28/21 11:25 Sputum - Suctioned Gram Stain - Final 05/28/21 11:25 Sputum - Suctioned Sputum Culture - Final 05/22/21 11:32 Urine Catheterized - Camacho Catheter Urine Culture - Final Serratia marcescens 05/19/21 16:47 Blood - Venous Blood Culture - Final No growth after 5 days. 05/19/21 16:49 Blood - Venous Blood Culture - Final No growth after 5 days. 05/22/21 15:44 Sputum - Suctioned Gram Stain - Final 05/22/21 15:44 Sputum - Suctioned Sputum Culture - Final 05/15/21 08:25 Blood - Venous Blood Culture - Final No growth after 5 days. 05/15/21 08:25 Blood - Venous Blood Culture - Final No growth after 5 days. 05/17/21 15:20 Sputum - Suctioned Gram Stain - Final 05/17/21 15:20 Sputum - Suctioned Sputum Culture - Final 05/13/21 Unknown Urine Catheterized - Camacho Catheter Urine Culture - Final Serratia marcescens 04/28/21 22:17 Blood - Venous Blood Culture - Final No growth after 5 days. 04/28/21 22:17 Blood - Venous Blood Culture - Final No growth after 5 days. Progress Note: A&P Assessment and plan (1) Myopathy: Status: Acute (2) Aortic stenosis due to bicuspid aortic valve: Status: Acute (3) Diabetes: Status: Acute (4) AV block: Status: Acute (5) Atrial flutter: Status: Acute (6) Type 2 diabetes mellitus: Status: Acute (7) CHF (congestive heart failure): Status: Acute (8) CKD (chronic kidney disease) stage 3, GFR 30-59 ml/min: Status: Acute (9) Acute hypoxemic respiratory failure due to COVID-19: Status: Acute (10) Failure to wean from mechanical ventilation: Status: Acute Assessment and Plan: Assessment: 66-year-old gentleman with underlying history of hypertension, CHF, diabetes mellitus admitted with acute hypoxic respiratory failure secondary to COVID-19 ARDS, requiring ventilatory support and further complicated by slow recovery, ventilator dependence, and ICU myopathy Plan: Neuro: ICU myopathy, continue aggressive physical therapy. Cardiac: Mobitz type 2 status post temporary pacemaker, removed 01/27/2021. now with development of a flutter and episodes of bradycardia requiring dopamine support. May require ppm placement. Underlying congestive heart failure. Continue with judicious diuresis. Underlying AFib, Eliquis held secondary to minor GI bleed, now on aspirin. Pulmonary: Acute hypoxic respiratory failure secondary to COVID-19 ARDS now with failure to wean from ventilatory support. FiO2 requirements improved significantly. Continues to fail pressure support trials. Planned for tracheostomy and gastrostomy today. Renal: Acute renal failure on the background of chronic kidney disease, likely secondary to COVID-19 , resolved. Renal function improved. Nephrology service care appreciated. Continue to monitor electrolytes, renal indices, and urine output. Endo: No acute issues. GI: No acute issues. ID: COVID-19, on systemic glucocorticoids. Heme/Onc: No acute issues. Psych: No acute issues. Miscellaneous: No acute issues. Prophylaxis: heparin , omeprazole Diet: held for procedure Critical care time spent: 45 minutes Quality Stroke Does the patient have a stroke diagnosis?: No VTE Prior VTE?: No VTE Risk Level:: Medical - moderate - high VTE Device Contraindication: Treatment Not Indicated VTE Drug Contraindication: N/A - Med Ordered
[2021-06-07 11:47] LABS: Glucose, Whole Blood 118 mg/dL (60-115)
[2021-06-07] MEDS: propofoL 1,000 MG/100 ML VIAL 24.1 MG IVCONT ×4 (11:59→22:35)
[2021-06-07 14:01] LABS: Glucose, Whole Blood 142 mg/dL (60-115)
--- NOTE | 2021-06-07 14:49 | MHC.SHP ---
Pre-Procedural Eval Section A Date of Service: 06/07/21 The patient is an INPATIENT: Yes Section B Chief Complaint: covid + w/ symptoms (low O2 sat) Allergies: Allergies Allergy/AdvReac Type Severity Reaction Status Date / Time No Known Allergies Allergy Verified 03/06/21 10:38 [No Known Allergies*] Plan I have reviewed the history and physical and performed a pertinent physical examination on my patient. No changes have occurred unless specified. Plan for tracheostomy and PEG tube placement today.
--- NOTE | 2021-06-07 14:50 | P.CONAN_ITS ---
FORM[facility], [facility] Active Problems Active Problems: All Active Problems (Updated 06/07/21 @ 11:13 by Tono Barker MD) Failure to wean from mechanical ventilation (Acute) Atrial flutter (Acute) Myopathy (Acute) Aortic stenosis due to bicuspid aortic valve (Acute) Anemia (Acute) Diabetes (Acute) AV block (Acute) CHF (congestive heart failure) (Acute) Type 2 diabetes mellitus (Acute) JÚNIOR (acute kidney injury) (Acute) SARS-CoV-2 positive (Acute) ARDS (adult respiratory distress syndrome) (Acute) CKD (chronic kidney disease) stage 3, GFR 30-59 ml/min (Acute) COVID-19 determined by clinical diagnostic criteria (Acute) Mobitz (type) I (Wenckebach's) atrioventricular block (Acute) Complete heart block (Acute) Chronic renal failure (Acute) Elevated troponin (Acute) Acute kidney injury superimposed on CKD (Acute) Elevated troponin (Acute) CHF exacerbation (Acute) Acute hypoxemic respiratory failure due to COVID-19 (Acute) Leg swelling (Acute) Past Medical History Medical History (Updated 06/07/21 @ 11:13 by Tono Barker MD) Anemia CHF (congestive heart failure) Chronic renal failure Diabetes Hypertension Type 2 diabetes mellitus Family History Family history of problems with anesthesia: No Surgical History Surgical History (Updated 04/29/21 @ 06:42 by Kina Arredondo MD) No pertinent past surgical history History of Problems with Anesthesia: No Social History Social History Household Members: Significant Other Housing: House Do you presently have visiting nurse or other home services: No Alcohol intake: unknown Patient Tobacco Use Status: Never used Tobacco e-Cigarette/Vaping Use: Never Used service: No Current occupational status: employed Current occupational exposures/hazards: No Meds Allergies Allergy/AdvReac Type Severity Reaction Status Date / Time No Known Allergies Allergy Verified 03/06/21 10:38 [No Known Allergies*] Active Medications: Current Medications Aspirin (Aspirin 81 Mg Tab.Chew) 324 mg NG-TUBE DAILY [facility] Last Admin: 06/07/21 08:55 Dose: Not Given Documented by: Atorvastatin Calcium (Atorvastatin Calcium 80 Mg Tablet) 80 mg PO BEDTIME [facility] Last Admin: 06/06/21 20:23 Dose: 80 mg Documented by: Chlorhexidine Gluconate (Chlorhexidine Gluc Oral Rinse 15 Ml Mouthwash) 15 ml BUCCAL TID [facility] Last Admin: 06/07/21 07:59 Dose: 15 ml Documented by: Heparin Sodium (Porcine) (Heparin Sodium,Porcine 5,000 Unit/Ml Vial) 5,000 unit SUBCUT Q8H [facility] Last Admin: 06/07/21 11:59 Dose: Not Given Documented by: Norepinephrine Bitartrate (Levophed) 8 mg in 250 mls @ 0 mls/hr IVCONT .Q0M [facility]; Protocol Last Titration: 06/06/21 03:43 Dose: 0 mcg/kg/min, 0 mls/hr Documented by: Propofol (Diprivan) 1,000 mg in 100 mls @ 0 mls/hr IVCONT .Q0M [facility]; Protocol Last Admin: 06/07/21 11:59 Dose: 40 mcg/kg/min, 24.1 mls/hr Documented by: Fentanyl (Sublimaze/Ns) 1,000 mcg in 100 mls @ 0 mls/hr IVCONT .Q0M [facility]; Protocol Last Admin: 06/07/21 06:13 Dose: 100 mcg/hr, 10 mls/hr Documented by: Dopamine HCl/Dextrose () 400 mg in 250 mls @ 0 mls/hr IVCONT .Q0M [facility]; Protocol Last Admin: 06/07/21 03:38 Dose: 3 mcg/kg/min, 11.63 mls/hr Documented by: Dextrose (D5w) 1,000 mls @ 50 mls/hr IVCONT .Q20H [facility] Last Admin: 06/07/21 09:30 Dose: 50 mls/hr Documented by: Insulin Glargine (Insulin Glargine,Hum.Rec.Anlog 100 Unit/Ml 10 Ml Vial) 22 unit SUBCUT BID [facility] Last Admin: 06/07/21 07:59 Dose: 22 unit Documented by: Insulin Human Lispro (Insulin Lispro 100 Unit/Ml 3 Ml Vial) 0.1 - 18 unit SUBCUT Q6H [facility]; Protocol Last Admin: 06/07/21 13:05 Dose: Not Given Documented by: Methylprednisolone Sodium Succinate (Methylprednisolone Sod Succ 40 Mg/Ml Vial) 40 mg IVPUSH DAILY [facility] Last Admin: 06/07/21 07:59 Dose: 40 mg Documented by: Metoclopramide HCl (Metoclopramide Hcl 10 Mg/2 Ml Vial) 5 mg IVPUSH Q6H [facility] Last Admin: 06/07/21 11:33 Dose: Not Given Documented by: Naloxone HCl (Naloxone Hcl 0.4 Mg/Ml Vial) 0.2 mg IVPUSH Q2M PRN PRN Reason: Excessive sedation or RR < 8 Omeprazole (Omeprazole 20 Mg/10 Ml Susp.Recon) 40 mg OG-TUBE BID@0630,1630 [facility] Last Admin: 06/07/21 05:28 Dose: Not Given Documented by: Sodium Chloride (0.9 % Sodium Chloride Flush 3 Ml Syringe) 3 ml IVFLUSH QSHIFT [facility] Last Admin: 06/07/21 07:59 Dose: 3 ml Documented by: Home Medications Medication Instructions Recorded Confirmed Last Taken Type isosorbide mononitrate 60 mg 60 mg PO DAILY 03/06/21 04/28/21 04/27/21 History tablet,extended release 24 hr sodium polystyrene sulfonate 30 g PO 2XW 03/06/21 04/28/21 04/27/21 History furosemide 40 mg tablet 40 mg PO Q2D 04/28/21 04/28/21 04/27/21 History furosemide 40 mg tablet 80 mg PO Q2D 04/28/21 04/28/21 04/26/21 History insulin glargine 100 unit/mL (3 18 unit SUBCUT QPM 04/28/21 04/28/21 04/27/21 History mL) subcutaneous pen (Basaglar KwikPen U-100 Insulin) Exam Exam Date and Time: June 07, 2021 1450 Height,Weight and Vital Signs: Height 6 ft Weight 104.9 kg Last Vital Signs Temp 99.7 F 06/07/21 14:00 Pulse 55 06/07/21 14:00 Resp 14 06/07/21 14:00 BP 118/57 L 06/07/21 14:00 Pulse Ox 96 06/07/21 14:00 Oxygen Flow Rate 15 04/28/21 21:37 Pertinent Lab Results Pertinent Lab Results: Laboratory Tests 04/28/21 04/28/21 04/28/21 22:17 22:17 22:17 WBC 8.0 RBC 5.04 Hgb 14.6 Hct 44.6 MCV 88.5 MCH 29.0 MCHC 32.7 RDW 13.2 Plt Count 186 MPV 11.1 Immature Gran % (Auto) 0.9 H Neut % (Auto) 85.1 H Lymph % (Auto) 7.4 L [place] % (Auto) 6.5 Eos % (Auto) 0.0 Baso % (Auto) 0.1 Lymph # (Auto) 0.6 L [place] # (Auto) 0.5 Eos # (Auto) 0.0 Baso # (Auto) 0.0 Abs Immat Gran (auto) 0.07 H Absolute Neuts (auto) 6.8 Absolute Nucleated RBC 0.000 Nucleated RBC % (auto) 0.0 Neutrophils % (Manual) Band Neutrophils % Lymphocytes % (Manual) Atypical Lymphs % (Man) Monocytes % (Manual) Eosinophils % (Manual) Basophils % (Manual) Metamyelocytes % Myelocytes % Abs Neuts (Manual) Lymphocytes # (Manual) Atyp Lymphs # (Manual) Monocytes # (Manual) Eosinophils # (Manual) Basophils # (Manual) Metamyelocytes # Myelocytes # Smudge Cells Platelet Estimate Large Platelets Plt Morphology Comment RBC Morphology Polychromasia Hypochromasia Basophilic Stippling Microcytosis Macrocytosis Tear Drop Cells Ovalocytes Acanthocytes (Spur) Schistocytes Smear Tech's Comments Smear Path Review PT INR D-Dimer High Sensitivty Hep-Ind Thrombocytop Com VBG pH VBG pCO2 VBG pO2 VBG HCO3 VBG O2 Saturation VBG Base Excess Sodium 134 L Potassium 5.2 H Chloride 105 Carbon Dioxide 18 L Anion Gap 16 BUN 104 H* Creatinine 3.29 H Estim Creat Clear Calc 27.2 Estimated GFR 19 POC Glucose Random Glucose 180 H Fasting Glucose Estimat Average Glucose Hemoglobin A1c % Lactic Acid Calcium 7.7 L D Phosphorus Magnesium Ferritin Total Bilirubin 0.7 Direct Bilirubin 0.4 AST 61 H ALT 35 Alkaline Phosphatase 55 Lactate Dehydrogenase Total Creatine Kinase Troponin I High Sens 78.6 H* C-Reactive Protein B-Natriuretic Peptide 1098 H Total Protein 5.9 L D Albumin 3.1 L D Procalcitonin Urine Color Urine Appearance Urine pH Ur Specific [place] Urine Protein Urine Glucose (UA) Urine Ketones Urine Blood Urine Nitrite Ur Leukocyte Esterase Urine RBC Urine WBC Ur Squamous Epith Cells Amorphous Sediment Urine Bacteria Hyaline Casts Urine Mucus Urine Osmolality Ur Random Sodium Ur Random Potassium Urine Creatinine Urine Microalbumin Microalb/Creat Ratio Nasal Screen MRSA (PCR) Nasal S. aureus Screen Nasal MRSA/S.aureus Interp Gastric Occult Blood Stool Occult Blood Vancomycin Trough Random Vancomycin Heparin Dep Plt Ab OD Hep-Induced Plt Ab [place] COVID-19 ([facility]) COVID-19 Clin Com Influenza Type A (PCR) Influenza Type B (PCR) L.pneumophila IgM Ab Ur L.pneumophila Ag Pneumocystis Source Pneumocyst jiroveci PCR RSV RNA Qual (PCR) SARS-CoV-2 RNA (RT-PCR) Blood Type Antibody Screen 04/28/21 04/28/21 04/28/21 22:17 22:17 22:17 WBC RBC Hgb Hct MCV MCH MCHC RDW Plt Count MPV Immature Gran % (Auto) Neut % (Auto) Lymph % (Auto) [place] % (Auto) Eos % (Auto) Baso % (Auto) Lymph # (Auto) [place] # (Auto) Eos # (Auto) Baso # (Auto) Abs Immat Gran (auto) Absolute Neuts (auto) Absolute Nucleated RBC Nucleated RBC % (auto) Neutrophils % (Manual) Band Neutrophils % Lymphocytes % (Manual) Atypical Lymphs % (Man) Monocytes % (Manual) Eosinophils % (Manual) Basophils % (Manual) Metamyelocytes % Myelocytes % Abs Neuts (Manual) Lymphocytes # (Manual) Atyp Lymphs # (Manual) Monocytes # (Manual) Eosinophils # (Manual) Basophils # (Manual) Metamyelocytes # Myelocytes # Smudge Cells Platelet Estimate Large Platelets Plt Morphology Comment RBC Morphology Polychromasia Hypochromasia Basophilic Stippling Microcytosis Macrocytosis Tear Drop Cells Ovalocytes Acanthocytes (Spur) Schistocytes Smear Tech's Comments Smear Path Review PT INR D-Dimer High Sensitivty 964 Hep-Ind Thrombocytop Com VBG pH VBG pCO2 VBG pO2 VBG HCO3 VBG O2 Saturation VBG Base Excess Sodium Potassium Chloride Carbon Dioxide Anion Gap BUN Creatinine Estim Creat Clear Calc Estimated GFR POC Glucose Random Glucose Fasting Glucose Estimat Average Glucose Hemoglobin A1c % Lactic Acid 1.5 Calcium Phosphorus Magnesium Ferritin Total Bilirubin Direct Bilirubin AST ALT Alkaline Phosphatase Lactate Dehydrogenase Total Creatine Kinase Troponin I High Sens C-Reactive Protein B-Natriuretic Peptide Total Protein Albumin Procalcitonin Urine Color Urine Appearance Urine pH Ur Specific [place] Urine Protein Urine Glucose (UA) Urine Ketones Urine Blood Urine Nitrite Ur Leukocyte Esterase Urine RBC Urine WBC Ur Squamous Epith Cells Amorphous Sediment Urine Bacteria Hyaline Casts Urine Mucus Urine Osmolality Ur Random Sodium Ur Random Potassium Urine Creatinine Urine Microalbumin Microalb/Creat Ratio Nasal Screen MRSA (PCR) Nasal S. aureus Screen Nasal MRSA/S.aureus Interp Gastric Occult Blood Stool Occult Blood Vancomycin Trough Random Vancomycin Heparin Dep Plt Ab OD Hep-Induced Plt Ab [place] COVID-19 ([facility]) Positive A COVID-19 Clin Com See Note Influenza Type A (PCR) Influenza Type B (PCR) L.pneumophila IgM Ab Ur L.pneumophila Ag Pneumocystis Source Pneumocyst jiroveci PCR RSV RNA Qual (PCR) SARS-CoV-2 RNA (RT-PCR) Blood Type Antibody Screen 04/29/21 04/29/21 04/29/21 07:59 09:44 09:44 WBC RBC Hgb Hct MCV MCH MCHC RDW Plt Count MPV Immature Gran % (Auto) Neut % (Auto) Lymph % (Auto) [place] % (Auto) Eos % (Auto) Baso % (Auto) Lymph # (Auto) [place] # (Auto) Eos # (Auto) Baso # (Auto) Abs Immat Gran (auto) Absolute Neuts (auto) Absolute Nucleated RBC Nucleated RBC % (auto) Neutrophils % (Manual) Band Neutrophils % Lymphocytes % (Manual) Atypical Lymphs % (Man) Monocytes % (Manual) Eosinophils % (Manual) Basophils % (Manual) Metamyelocytes % Myelocytes % Abs Neuts (Manual) Lymphocytes # (Manual) Atyp Lymphs # (Manual) Monocytes # (Manual) Eosinophils # (Manual) Basophils # (Manual) Metamyelocytes # Myelocytes # Smudge Cells Platelet Estimate Large Platelets Plt Morphology Comment RBC Morphology Polychromasia Hypochromasia Basophilic Stippling Microcytosis Macrocytosis Tear Drop Cells Ovalocytes Acanthocytes (Spur) Schistocytes Smear Tech's Comments Smear Path Review PT INR D-Dimer High Sensitivty Hep-Ind Thrombocytop Com VBG pH VBG pCO2 VBG pO2 VBG HCO3 VBG O2 Saturation VBG Base Excess Sodium Potassium Chloride Carbon Dioxide Anion Gap BUN Creatinine Estim Creat Clear Calc Estimated GFR POC Glucose Random Glucose Fasting Glucose Estimat Average Glucose Hemoglobin A1c % Lactic Acid Calcium Phosphorus Magnesium Ferritin Total Bilirubin Direct Bilirubin AST ALT Alkaline Phosphatase Lactate Dehydrogenase Total Creatine Kinase Troponin I High Sens 55.5 H* C-Reactive Protein B-Natriuretic Peptide Total Protein Albumin Procalcitonin Urine Color Urine Appearance Urine pH Ur Specific [place] Urine Protein Urine Glucose (UA) Urine Ketones Urine Blood Urine Nitrite Ur Leukocyte Esterase Urine RBC Urine WBC Ur Squamous Epith Cells Amorphous Sediment Urine Bacteria Hyaline Casts Urine Mucus Urine Osmolality 380 Ur Random Sodium 66.0 Ur Random Potassium Urine Creatinine 57.09 Urine Microalbumin 1089.0 Microalb/Creat Ratio 1907.5 Nasal Screen MRSA (PCR) Nasal S. aureus Screen Nasal MRSA/S.aureus Interp Gastric Occult Blood Stool Occult Blood Vancomycin Trough Random Vancomycin Heparin Dep Plt Ab OD Hep-Induced Plt Ab [place] COVID-19 ([facility]) COVID-19 Clin Com Influenza Type A (PCR) Influenza Type B (PCR) L.pneumophila IgM Ab Ur L.pneumophila Ag Pneumocystis Source Pneumocyst jiroveci PCR RSV RNA Qual (PCR) SARS-CoV-2 RNA (RT-PCR) Blood Type Antibody Screen 04/29/21 04/29/21 04/29/21 11:06 12:28 17:36 WBC RBC Hgb Hct MCV MCH MCHC RDW Plt Count MPV Immature Gran % (Auto) Neut % (Auto) Lymph % (Auto) [place] % (Auto) Eos % (Auto) Baso % (Auto) Lymph # (Auto) [place] # (Auto) Eos # (Auto) Baso # (Auto) Abs Immat Gran (auto) Absolute Neuts (auto) Absolute Nucleated RBC Nucleated RBC % (auto) Neutrophils % (Manual) Band Neutrophils % Lymphocytes % (Manual) Atypical Lymphs % (Man) Monocytes % (Manual) Eosinophils % (Manual) Basophils % (Manual) Metamyelocytes % Myelocytes % Abs Neuts (Manual) Lymphocytes # (Manual) Atyp Lymphs # (Manual) Monocytes # (Manual) Eosinophils # (Manual) Basophils # (Manual) Metamyelocytes # Myelocytes # Smudge Cells Platelet Estimate Large Platelets Plt Morphology Comment RBC Morphology Polychromasia Hypochromasia Basophilic Stippling Microcytosis Macrocytosis Tear Drop Cells Ovalocytes Acanthocytes (Spur) Schistocytes Smear Tech's Comments Smear Path Review PT INR D-Dimer High Sensitivty Hep-Ind Thrombocytop Com VBG pH VBG pCO2 VBG pO2 VBG HCO3 VBG O2 Saturation VBG Base Excess Sodium Potassium Chloride Carbon Dioxide Anion Gap BUN Creatinine Estim Creat Clear Calc Estimated GFR POC Glucose 218 H 197 H 332 H Random Glucose Fasting Glucose Estimat Average Glucose Hemoglobin A1c % Lactic Acid Calcium Phosphorus Magnesium Ferritin Total Bilirubin Direct Bilirubin AST ALT Alkaline Phosphatase Lactate Dehydrogenase Total Creatine Kinase Troponin I High Sens C-Reactive Protein B-Natriuretic Peptide Total Protein Albumin Procalcitonin Urine Color Urine Appearance Urine pH Ur Specific [place] Urine Protein Urine Glucose (UA) Urine Ketones Urine Blood Urine Nitrite Ur Leukocyte Esterase Urine RBC Urine WBC Ur Squamous Epith Cells Amorphous Sediment Urine Bacteria Hyaline Casts Urine Mucus Urine Osmolality Ur Random Sodium Ur Random Potassium Urine Creatinine Urine Microalbumin Microalb/Creat Ratio Nasal Screen MRSA (PCR) Nasal S. aureus Screen Nasal MRSA/S.aureus Interp Gastric Occult Blood Stool Occult Blood Vancomycin Trough Random Vancomycin Heparin Dep Plt Ab OD Hep-Induced Plt Ab [place] COVID-19 ([facility]) COVID-19 Clin Com Influenza Type A (PCR) Influenza Type B (PCR) L.pneumophila IgM Ab Ur L.pneumophila Ag Pneumocystis Source Pneumocyst jiroveci PCR RSV RNA Qual (PCR) SARS-CoV-2 RNA (RT-PCR) Blood Type Antibody Screen 04/29/21 04/30/21 04/30/21 20:42 05:17 05:17 WBC 10.4 RBC 5.19 Hgb 14.8 Hct 44.9 MCV 86.5 MCH 28.5 MCHC 33.0 RDW 13.2 Plt Count 273 D MPV 10.7 Immature Gran % (Auto) 1.1 H Neut % (Auto) 88.4 H Lymph % (Auto) 6.1 L [place] % (Auto) 4.4 Eos % (Auto) 0.0 Baso % (Auto) 0.0 Lymph # (Auto) 0.6 L [place] # (Auto) 0.5 Eos # (Auto) 0.0 Baso # (Auto) 0.0 Abs Immat Gran (auto) 0.11 H Absolute Neuts (auto) 9.2 H Absolute Nucleated RBC 0.000 Nucleated RBC % (auto) 0.0 Neutrophils % (Manual) Band Neutrophils % Lymphocytes % (Manual) Atypical Lymphs % (Man) Monocytes % (Manual) Eosinophils % (Manual) Basophils % (Manual) Metamyelocytes % Myelocytes % Abs Neuts (Manual) Lymphocytes # (Manual) Atyp Lymphs # (Manual) Monocytes # (Manual) Eosinophils # (Manual) Basophils # (Manual) Metamyelocytes # Myelocytes # Smudge Cells Platelet Estimate Large Platelets Plt Morphology Comment RBC Morphology Polychromasia Hypochromasia Basophilic Stippling Microcytosis Macrocytosis Tear Drop Cells Ovalocytes Acanthocytes (Spur) Schistocytes Smear Tech's Comments Smear Path Review PT INR D-Dimer High Sensitivty Hep-Ind Thrombocytop Com VBG pH VBG pCO2 VBG pO2 VBG HCO3 VBG O2 Saturation VBG Base Excess Sodium 140 Potassium 5.2 H Chloride 111 H Carbon Dioxide 18 L Anion Gap 16 BUN 97 H* Creatinine 2.24 H Estim Creat Clear Calc 40.0 Estimated GFR 29 POC Glucose 290 H Random Glucose 225 H Fasting Glucose Estimat Average Glucose Hemoglobin A1c % Lactic Acid Calcium 7.9 L Phosphorus Magnesium Ferritin Total Bilirubin Direct Bilirubin AST ALT Alkaline Phosphatase Lactate Dehydrogenase Total Creatine Kinase Troponin I High Sens C-Reactive Protein 5.86 H B-Natriuretic Peptide Total Protein Albumin Procalcitonin Urine Color Urine Appearance Urine pH Ur Specific [place] Urine Protein Urine Glucose (UA) Urine Ketones Urine Blood Urine Nitrite Ur Leukocyte Esterase Urine RBC Urine WBC Ur Squamous Epith Cells Amorphous Sediment Urine Bacteria Hyaline Casts Urine Mucus Urine Osmolality Ur Random Sodium Ur Random Potassium Urine Creatinine Urine Microalbumin Microalb/Creat Ratio Nasal Screen MRSA (PCR) Nasal S. aureus Screen Nasal MRSA/S.aureus Interp Gastric Occult Blood Stool Occult Blood Vancomycin Trough Random Vancomycin Heparin Dep Plt Ab OD Hep-Induced Plt Ab [place] COVID-19 ([facility]) COVID-19 Clin Com Influenza Type A (PCR) Influenza Type B (PCR) L.pneumophila IgM Ab Ur L.pneumophila Ag Pneumocystis Source Pneumocyst jiroveci PCR RSV RNA Qual (PCR) SARS-CoV-2 RNA (RT-PCR) Blood Type Antibody Screen 04/30/21 04/30/21 04/30/21 05:17 05:17 05:17 WBC RBC Hgb Hct MCV MCH MCHC RDW Plt Count MPV Immature Gran % (Auto) Neut % (Auto) Lymph % (Auto) [place] % (Auto) Eos % (Auto) Baso % (Auto) Lymph # (Auto) [place] # (Auto) Eos # (Auto) Baso # (Auto) Abs Immat Gran (auto) Absolute Neuts (auto) Absolute Nucleated RBC Nucleated RBC % (auto) Neutrophils % (Manual) Band Neutrophils % Lymphocytes % (Manual) Atypical Lymphs % (Man) Monocytes % (Manual) Eosinophils % (Manual) Basophils % (Manual) Metamyelocytes % Myelocytes % Abs Neuts (Manual) Lymphocytes # (Manual) Atyp Lymphs # (Manual) Monocytes # (Manual) Eosinophils # (Manual) Basophils # (Manual) Metamyelocytes # Myelocytes # Smudge Cells Platelet Estimate Large Platelets Plt Morphology Comment RBC Morphology Polychromasia Hypochromasia Basophilic Stippling Microcytosis Macrocytosis Tear Drop Cells Ovalocytes Acanthocytes (Spur) Schistocytes Smear Tech's Comments Smear Path Review PT INR D-Dimer High Sensitivty Hep-Ind Thrombocytop Com VBG pH VBG pCO2 VBG pO2 VBG HCO3 VBG O2 Saturation VBG Base Excess Sodium Potassium Chloride Carbon Dioxide Anion Gap BUN Creatinine Estim Creat Clear Calc Estimated GFR POC Glucose Random Glucose Fasting Glucose Estimat Average Glucose 174 Hemoglobin A1c % 7.7 Lactic Acid Calcium Phosphorus Magnesium Ferritin Total Bilirubin Direct Bilirubin AST ALT Alkaline Phosphatase Lactate Dehydrogenase Total Creatine Kinase Troponin I High Sens C-Reactive Protein B-Natriuretic Peptide 130 H Total Protein Albumin Procalcitonin 0.23 Urine Color Urine Appearance Urine pH Ur Specific [place] Urine Protein Urine Glucose (UA) Urine Ketones Urine Blood Urine Nitrite Ur Leukocyte Esterase Urine RBC Urine WBC Ur Squamous Epith Cells Amorphous Sediment Urine Bacteria Hyaline Casts Urine Mucus Urine Osmolality Ur Random Sodium Ur Random Potassium Urine Creatinine Urine Microalbumin Microalb/Creat Ratio Nasal Screen MRSA (PCR) Nasal S. aureus Screen Nasal MRSA/S.aureus Interp Gastric Occult Blood Stool Occult Blood Vancomycin Trough Random Vancomycin Heparin Dep Plt Ab OD Hep-Induced Plt Ab [place] COVID-19 ([facility]) COVID-19 Clin Com Influenza Type A (PCR) Influenza Type B (PCR) L.pneumophila IgM Ab Ur L.pneumophila Ag Pneumocystis Source Pneumocyst jiroveci PCR RSV RNA Qual (PCR) SARS-CoV-2 RNA (RT-PCR) Blood Type Antibody Screen 04/30/21 04/30/21 04/30/21 07:44 11:27 16:13 WBC RBC Hgb Hct MCV MCH MCHC RDW Plt Count MPV Immature Gran % (Auto) Neut % (Auto) Lymph % (Auto) [place] % (Auto) Eos % (Auto) Baso % (Auto) Lymph # (Auto) [place] # (Auto) Eos # (Auto) Baso # (Auto) Abs Immat Gran (auto) Absolute Neuts (auto) Absolute Nucleated RBC Nucleated RBC % (auto) Neutrophils % (Manual) Band Neutrophils % Lymphocytes % (Manual) Atypical Lymphs % (Man) Monocytes % (Manual) Eosinophils % (Manual) Basophils % (Manual) Metamyelocytes % Myelocytes % Abs Neuts (Manual) Lymphocytes # (Manual) Atyp Lymphs # (Manual) Monocytes # (Manual) Eosinophils # (Manual) Basophils # (Manual) Metamyelocytes # Myelocytes # Smudge Cells Platelet Estimate Large Platelets Plt Morphology Comment RBC Morphology Polychromasia Hypochromasia Basophilic Stippling Microcytosis Macrocytosis Tear Drop Cells Ovalocytes Acanthocytes (Spur) Schistocytes Smear Tech's Comments Smear Path Review PT INR D-Dimer High Sensitivty Hep-Ind Thrombocytop Com VBG pH VBG pCO2 VBG pO2 VBG HCO3 VBG O2 Saturation VBG Base Excess Sodium Potassium Chloride Carbon Dioxide Anion Gap BUN Creatinine Estim Creat Clear Calc Estimated GFR POC Glucose 211 H 314 H 328 H Random Glucose Fasting Glucose Estimat Average Glucose Hemoglobin A1c % Lactic Acid Calcium Phosphorus Magnesium Ferritin Total Bilirubin Direct Bilirubin AST ALT Alkaline Phosphatase Lactate Dehydrogenase Total Creatine Kinase Troponin I High Sens C-Reactive Protein B-Natriuretic Peptide Total Protein Albumin Procalcitonin Urine Color Urine Appearance Urine pH Ur Specific [place] Urine Protein Urine Glucose (UA) Urine Ketones Urine Blood Urine Nitrite Ur Leukocyte Esterase Urine RBC Urine WBC Ur Squamous Epith Cells Amorphous Sediment Urine Bacteria Hyaline Casts Urine Mucus Urine Osmolality Ur Random Sodium Ur Random Potassium Urine Creatinine Urine Microalbumin Microalb/Creat Ratio Nasal Screen MRSA (PCR) Nasal S. aureus Screen Nasal MRSA/S.aureus Interp Gastric Occult Blood Stool Occult Blood Vancomycin Trough Random Vancomycin Heparin Dep Plt Ab OD Hep-Induced Plt Ab [place] COVID-19 ([facility]) COVID-19 Clin Com Influenza Type A (PCR) Influenza Type B (PCR) L.pneumophila IgM Ab Ur L.pneumophila Ag Pneumocystis Source Pneumocyst jiroveci PCR RSV RNA Qual (PCR) SARS-CoV-2 RNA (RT-PCR) Blood Type Antibody Screen 04/30/21 05/01/21 05/01/21 20:11 06:57 06:57 WBC RBC Hgb Hct MCV MCH MCHC RDW Plt Count MPV Immature Gran % (Auto) Neut % (Auto) Lymph % (Auto) [place] % (Auto) Eos % (Auto) Baso % (Auto) Lymph # (Auto) [place] # (Auto) Eos # (Auto) Baso # (Auto) Abs Immat Gran (auto) Absolute Neuts (auto) Absolute Nucleated RBC Nucleated RBC % (auto) Neutrophils % (Manual) Band Neutrophils % Lymphocytes % (Manual) Atypical Lymphs % (Man) Monocytes % (Manual) Eosinophils % (Manual) Basophils % (Manual) Metamyelocytes % Myelocytes % Abs Neuts (Manual) Lymphocytes # (Manual) Atyp Lymphs # (Manual) Monocytes # (Manual) Eosinophils # (Manual) Basophils # (Manual) Metamyelocytes # Myelocytes # Smudge Cells Platelet Estimate Large Platelets Plt Morphology Comment RBC Morphology Polychromasia Hypochromasia Basophilic Stippling Microcytosis Macrocytosis Tear Drop Cells Ovalocytes Acanthocytes (Spur) Schistocytes Smear Tech's Comments Smear Path Review PT INR D-Dimer High Sensitivty Hep-Ind Thrombocytop Com VBG pH VBG pCO2 VBG pO2 VBG HCO3 VBG O2 Saturation VBG Base Excess Sodium 139 Potassium 5.6 H Chloride 111 H Carbon Dioxide 19 L Anion Gap 15 BUN 99 H* Creatinine 1.90 H Estim Creat Clear Calc 46.4 Estimated GFR 36 POC Glucose 347 H Random Glucose 264 H Fasting Glucose Estimat Average Glucose Hemoglobin A1c % Lactic Acid Calcium 8.1 L Phosphorus Magnesium Ferritin Total Bilirubin 0.7 Direct Bilirubin 0.4 AST 26 D ALT 23 Alkaline Phosphatase 61 Lactate Dehydrogenase Total Creatine Kinase Troponin I High Sens C-Reactive Protein B-Natriuretic Peptide 106 H Total Protein 5.6 L Albumin 2.8 L Procalcitonin Urine Color Urine Appearance Urine pH Ur Specific [place] Urine Protein Urine Glucose (UA) Urine Ketones Urine Blood Urine Nitrite Ur Leukocyte Esterase Urine RBC Urine WBC Ur Squamous Epith Cells Amorphous Sediment Urine Bacteria Hyaline Casts Urine Mucus Urine Osmolality Ur Random Sodium Ur Random Potassium Urine Creatinine Urine Microalbumin Microalb/Creat Ratio Nasal Screen MRSA (PCR) Nasal S. aureus Screen Nasal MRSA/S.aureus Interp Gastric Occult Blood Stool Occult Blood Vancomycin Trough Random Vancomycin Heparin Dep Plt Ab OD Hep-Induced Plt Ab [place] COVID-19 ([facility]) COVID-19 Clin Com Influenza Type A (PCR) Influenza Type B (PCR) L.pneumophila IgM Ab Ur L.pneumophila Ag Pneumocystis Source Pneumocyst jiroveci PCR RSV RNA Qual (PCR) SARS-CoV-2 RNA (RT-PCR) Blood Type Antibody Screen 05/01/21 05/01/21 05/01/21 06:57 06:57 07:30 WBC 9.8 RBC 5.14 Hgb 14.7 Hct 44.9 MCV 87.4 MCH 28.6 MCHC 32.7 RDW 13.3 Plt Count 302 MPV 10.5 Immature Gran % (Auto) Neut % (Auto) Lymph % (Auto) [place] % (Auto) Eos % (Auto) Baso % (Auto) Lymph # (Auto) [place] # (Auto) Eos # (Auto) Baso # (Auto) Abs Immat Gran (auto) Absolute Neuts (auto) Absolute Nucleated RBC 0.000 Nucleated RBC % (auto) 0.0 Neutrophils % (Manual) Band Neutrophils % Lymphocytes % (Manual) Atypical Lymphs % (Man) Monocytes % (Manual) Eosinophils % (Manual) Basophils % (Manual) Metamyelocytes % Myelocytes % Abs Neuts (Manual) Lymphocytes # (Manual) Atyp Lymphs # (Manual) Monocytes # (Manual) Eosinophils # (Manual) Basophils # (Manual) Metamyelocytes # Myelocytes # Smudge Cells Platelet Estimate Large Platelets Plt Morphology Comment RBC Morphology Polychromasia Hypochromasia Basophilic Stippling Microcytosis Macrocytosis Tear Drop Cells Ovalocytes Acanthocytes (Spur) Schistocytes Smear Tech's Comments Smear Path Review PT INR D-Dimer High Sensitivty 1137 Hep-Ind Thrombocytop Com VBG pH VBG pCO2 VBG pO2 VBG HCO3 VBG O2 Saturation VBG Base Excess Sodium Potassium Chloride Carbon Dioxide Anion Gap BUN Creatinine Estim Creat Clear Calc Estimated GFR POC Glucose 214 H Random Glucose Fasting Glucose Estimat Average Glucose Hemoglobin A1c % Lactic Acid Calcium Phosphorus Magnesium Ferritin Total Bilirubin Direct Bilirubin AST ALT Alkaline Phosphatase Lactate Dehydrogenase Total Creatine Kinase Troponin I High Sens C-Reactive Protein B-Natriuretic Peptide Total Protein Albumin Procalcitonin Urine Color Urine Appearance Urine pH Ur Specific [place] Urine Protein Urine Glucose (UA) Urine Ketones Urine Blood Urine Nitrite Ur Leukocyte Esterase Urine RBC Urine WBC Ur Squamous Epith Cells Amorphous Sediment Urine Bacteria Hyaline Casts Urine Mucus Urine Osmolality Ur Random Sodium Ur Random Potassium Urine Creatinine Urine Microalbumin Microalb/Creat Ratio Nasal Screen MRSA (PCR) Nasal S. aureus Screen Nasal MRSA/S.aureus Interp Gastric Occult Blood Stool Occult Blood Vancomycin Trough Random Vancomycin Heparin Dep Plt Ab OD Hep-Induced Plt Ab [place] COVID-19 ([facility]) COVID-19 Clin Com Influenza Type A (PCR) Influenza Type B (PCR) L.pneumophila IgM Ab Ur L.pneumophila Ag Pneumocystis Source Pneumocyst jiroveci PCR RSV RNA Qual (PCR) SARS-CoV-2 RNA (RT-PCR) Blood Type Antibody Screen 05/01/21 05/01/21 05/01/21 11:08 16:33 20:26 WBC RBC Hgb Hct MCV MCH MCHC RDW Plt Count MPV Immature Gran % (Auto) Neut % (Auto) Lymph % (Auto) [place] % (Auto) Eos % (Auto) Baso % (Auto) Lymph # (Auto) [place] # (Auto) Eos # (Auto) Baso # (Auto) Abs Immat Gran (auto) Absolute Neuts (auto) Absolute Nucleated RBC Nucleated RBC % (auto) Neutrophils % (Manual) Band Neutrophils % Lymphocytes % (Manual) Atypical Lymphs % (Man) Monocytes % (Manual) Eosinophils % (Manual) Basophils % (Manual) Metamyelocytes % Myelocytes % Abs Neuts (Manual) Lymphocytes # (Manual) Atyp Lymphs # (Manual) Monocytes # (Manual) Eosinophils # (Manual) Basophils # (Manual) Metamyelocytes # Myelocytes # Smudge Cells Platelet Estimate Large Platelets Plt Morphology Comment RBC Morphology Polychromasia Hypochromasia Basophilic Stippling Microcytosis Macrocytosis Tear Drop Cells Ovalocytes Acanthocytes (Spur) Schistocytes Smear Tech's Comments Smear Path Review PT INR D-Dimer High Sensitivty Hep-Ind Thrombocytop Com VBG pH VBG pCO2 VBG pO2 VBG HCO3 VBG O2 Saturation VBG Base Excess Sodium Potassium Chloride Carbon Dioxide Anion Gap BUN Creatinine Estim Creat Clear Calc Estimated GFR POC Glucose 354 H* 317 H 324 H Random Glucose Fasting Glucose Estimat Average Glucose Hemoglobin A1c % Lactic Acid Calcium Phosphorus Magnesium Ferritin Total Bilirubin Direct Bilirubin AST ALT Alkaline Phosphatase Lactate Dehydrogenase Total Creatine Kinase Troponin I High Sens C-Reactive Protein B-Natriuretic Peptide Total Protein Albumin Procalcitonin Urine Color Urine Appearance Urine pH Ur Specific [place] Urine Protein Urine Glucose (UA) Urine Ketones Urine Blood Urine Nitrite Ur Leukocyte Esterase Urine RBC Urine WBC Ur Squamous Epith Cells Amorphous Sediment Urine Bacteria Hyaline Casts Urine Mucus Urine Osmolality Ur Random Sodium Ur Random Potassium Urine Creatinine Urine Microalbumin Microalb/Creat Ratio Nasal Screen MRSA (PCR) Nasal S. aureus Screen Nasal MRSA/S.aureus Interp Gastric Occult Blood Stool Occult Blood Vancomycin Trough Random Vancomycin Heparin Dep Plt Ab OD Hep-Induced Plt Ab [place] COVID-19 ([facility]) COVID-19 Clin Com Influenza Type A (PCR) Influenza Type B (PCR) L.pneumophila IgM Ab Ur L.pneumophila Ag Pneumocystis Source Pneumocyst jiroveci PCR RSV RNA Qual (PCR) SARS-CoV-2 RNA (RT-PCR) Blood Type Antibody Screen 05/02/21 05/02/21 05/02/21 06:33 06:33 07:44 WBC RBC Hgb Hct MCV MCH MCHC RDW Plt Count MPV Immature Gran % (Auto) Neut % (Auto) Lymph % (Auto) [place] % (Auto) Eos % (Auto) Baso % (Auto) Lymph # (Auto) [place] # (Auto) Eos # (Auto) Baso # (Auto) Abs Immat Gran (auto) Absolute Neuts (auto) Absolute Nucleated RBC Nucleated RBC % (auto) Neutrophils % (Manual) Band Neutrophils % Lymphocytes % (Manual) Atypical Lymphs % (Man) Monocytes % (Manual) Eosinophils % (Manual) Basophils % (Manual) Metamyelocytes % Myelocytes % Abs Neuts (Manual) Lymphocytes # (Manual) Atyp Lymphs # (Manual) Monocytes # (Manual) Eosinophils # (Manual) Basophils # (Manual) Metamyelocytes # Myelocytes # Smudge Cells Platelet Estimate Large Platelets Plt Morphology Comment RBC Morphology Polychromasia Hypochromasia Basophilic Stippling Microcytosis Macrocytosis Tear Drop Cells Ovalocytes Acanthocytes (Spur) Schistocytes Smear Tech's Comments Smear Path Review PT INR D-Dimer High Sensitivty Hep-Ind Thrombocytop Com VBG pH VBG pCO2 VBG pO2 VBG HCO3 VBG O2 Saturation VBG Base Excess Sodium 139 Potassium 5.4 H Chloride 109 H Carbon Dioxide 21 L Anion Gap 14 BUN 90 H* Creatinine 1.61 H Estim Creat Clear Calc 54.7 Estimated GFR 43 POC Glucose 181 H Random Glucose 186 H Fasting Glucose Estimat Average Glucose Hemoglobin A1c % Lactic Acid Calcium 8.4 Phosphorus Magnesium Ferritin Total Bilirubin Direct Bilirubin AST ALT Alkaline Phosphatase Lactate Dehydrogenase Total Creatine Kinase Troponin I High Sens C-Reactive Protein 1.29 H B-Natriuretic Peptide Total Protein Albumin Procalcitonin 0.08 Urine Color Urine Appearance Urine pH Ur Specific [place] Urine Protein Urine Glucose (UA) Urine Ketones Urine Blood Urine Nitrite Ur Leukocyte Esterase Urine RBC Urine WBC Ur Squamous Epith Cells Amorphous Sediment Urine Bacteria Hyaline Casts Urine Mucus Urine Osmolality Ur Random Sodium Ur Random Potassium Urine Creatinine Urine Microalbumin Microalb/Creat Ratio Nasal Screen MRSA (PCR) Nasal S. aureus Screen Nasal MRSA/S.aureus Interp Gastric Occult Blood Stool Occult Blood Vancomycin Trough Random Vancomycin Heparin Dep Plt Ab OD Hep-Induced Plt Ab [place] COVID-19 ([facility]) COVID-19 Clin Com Influenza Type A (PCR) Influenza Type B (PCR) L.pneumophila IgM Ab Ur L.pneumophila Ag Pneumocystis Source Pneumocyst jiroveci PCR RSV RNA Qual (PCR) SARS-CoV-2 RNA (RT-PCR) Blood Type Antibody Screen 05/02/21 05/02/21 05/02/21 11:38 16:26 20:13 WBC RBC Hgb Hct MCV MCH MCHC RDW Plt Count MPV Immature Gran % (Auto) Neut % (Auto) Lymph % (Auto) [place] % (Auto) Eos % (Auto) Baso % (Auto) Lymph # (Auto) [place] # (Auto) Eos # (Auto) Baso # (Auto) Abs Immat Gran (auto) Absolute Neuts (auto) Absolute Nucleated RBC Nucleated RBC % (auto) Neutrophils % (Manual) Band Neutrophils % Lymphocytes % (Manual) Atypical Lymphs % (Man) Monocytes % (Manual) Eosinophils % (Manual) Basophils % (Manual) Metamyelocytes % Myelocytes % Abs Neuts (Manual) Lymphocytes # (Manual) Atyp Lymphs # (Manual) Monocytes # (Manual) Eosinophils # (Manual) Basophils # (Manual) Metamyelocytes # Myelocytes # Smudge Cells Platelet Estimate Large Platelets Plt Morphology Comment RBC Morphology Polychromasia Hypochromasia Basophilic Stippling Microcytosis Macrocytosis Tear Drop Cells Ovalocytes Acanthocytes (Spur) Schistocytes Smear Tech's Comments Smear Path Review PT INR D-Dimer High Sensitivty Hep-Ind Thrombocytop Com VBG pH VBG pCO2 VBG pO2 VBG HCO3 VBG O2 Saturation VBG Base Excess Sodium Potassium Chloride Carbon Dioxide Anion Gap BUN Creatinine Estim Creat Clear Calc Estimated GFR POC Glucose 326 H 329 H 308 H Random Glucose Fasting Glucose Estimat Average Glucose Hemoglobin A1c % Lactic Acid Calcium Phosphorus Magnesium Ferritin Total Bilirubin Direct Bilirubin AST ALT Alkaline Phosphatase Lactate Dehydrogenase Total Creatine Kinase Troponin I High Sens C-Reactive Protein B-Natriuretic Peptide Total Protein Albumin Procalcitonin Urine Color Urine Appearance Urine pH Ur Specific [place] Urine Protein Urine Glucose (UA) Urine Ketones Urine Blood Urine Nitrite Ur Leukocyte Esterase Urine RBC Urine WBC Ur Squamous Epith Cells Amorphous Sediment Urine Bacteria Hyaline Casts Urine Mucus Urine Osmolality Ur Random Sodium Ur Random Potassium Urine Creatinine Urine Microalbumin Microalb/Creat Ratio Nasal Screen MRSA (PCR) Nasal S. aureus Screen Nasal MRSA/S.aureus Interp Gastric Occult Blood Stool Occult Blood Vancomycin Trough Random Vancomycin Heparin Dep Plt Ab OD Hep-Induced Plt Ab [place] COVID-19 ([facility]) COVID-19 Clin Com Influenza Type A (PCR) Influenza Type B (PCR) L.pneumophila IgM Ab Ur L.pneumophila Ag Pneumocystis Source Pneumocyst jiroveci PCR RSV RNA Qual (PCR) SARS-CoV-2 RNA (RT-PCR) Blood Type Antibody Screen 05/03/21 05/03/21 05/03/21 06:17 06:17 06:17 WBC 7.8 RBC 5.04 Hgb 14.4 Hct 43.6 MCV 86.5 MCH 28.6 MCHC 33.0 RDW 13.2 Plt Count 289 MPV 10.6 Immature Gran % (Auto) Neut % (Auto) Lymph % (Auto) [place] % (Auto) Eos % (Auto) Baso % (Auto) Lymph # (Auto) [place] # (Auto) Eos # (Auto) Baso # (Auto) Abs Immat Gran (auto) Absolute Neuts (auto) Absolute Nucleated RBC 0.000 Nucleated RBC % (auto) 0.0 Neutrophils % (Manual) Band Neutrophils % Lymphocytes % (Manual) Atypical Lymphs % (Man) Monocytes % (Manual) Eosinophils % (Manual) Basophils % (Manual) Metamyelocytes % Myelocytes % Abs Neuts (Manual) Lymphocytes # (Manual) Atyp Lymphs # (Manual) Monocytes # (Manual) Eosinophils # (Manual) Basophils # (Manual) Metamyelocytes # Myelocytes # Smudge Cells Platelet Estimate Large Platelets Plt Morphology Comment RBC Morphology Polychromasia Hypochromasia Basophilic Stippling Microcytosis Macrocytosis Tear Drop Cells Ovalocytes Acanthocytes (Spur) Schistocytes Smear Tech's Comments Smear Path Review PT INR D-Dimer High Sensitivty 4311 Hep-Ind Thrombocytop Com VBG pH VBG pCO2 VBG pO2 VBG HCO3 VBG O2 Saturation VBG Base Excess Sodium 139 Potassium 5.0 Chloride 109 H Carbon Dioxide 22 Anion Gap 13 BUN 81 H* Creatinine 1.46 H Estim Creat Clear Calc 60.3 Estimated GFR 48 POC Glucose Random Glucose 133 H Fasting Glucose Estimat Average Glucose Hemoglobin A1c % Lactic Acid Calcium 8.2 L Phosphorus Magnesium Ferritin Total Bilirubin Direct Bilirubin AST ALT Alkaline Phosphatase Lactate Dehydrogenase Total Creatine Kinase Troponin I High Sens C-Reactive Protein B-Natriuretic Peptide Total Protein Albumin Procalcitonin Urine Color Urine Appearance Urine pH Ur Specific [place] Urine Protein Urine Glucose (UA) Urine Ketones Urine Blood Urine Nitrite Ur Leukocyte Esterase Urine RBC Urine WBC Ur Squamous Epith Cells Amorphous Sediment Urine Bacteria Hyaline Casts Urine Mucus Urine Osmolality Ur Random Sodium Ur Random Potassium Urine Creatinine Urine Microalbumin Microalb/Creat Ratio Nasal Screen MRSA (PCR) Nasal S. aureus Screen Nasal MRSA/S.aureus Interp Gastric Occult Blood Stool Occult Blood Vancomycin Trough Random Vancomycin Heparin Dep Plt Ab OD Hep-Induced Plt Ab [place] COVID-19 ([facility]) COVID-19 Clin Com Influenza Type A (PCR) Influenza Type B (PCR) L.pneumophila IgM Ab Ur L.pneumophila Ag Pneumocystis Source Pneumocyst jiroveci PCR RSV RNA Qual (PCR) SARS-CoV-2 RNA (RT-PCR) Blood Type Antibody Screen 05/03/21 05/03/21 05/03/21 07:19 11:18 15:58 WBC RBC Hgb Hct MCV MCH MCHC RDW Plt Count MPV Immature Gran % (Auto) Neut % (Auto) Lymph % (Auto) [place] % (Auto) Eos % (Auto) Baso % (Auto) Lymph # (Auto) [place] # (Auto) Eos # (Auto) Baso # (Auto) Abs Immat Gran (auto) Absolute Neuts (auto) Absolute Nucleated RBC Nucleated RBC % (auto) Neutrophils % (Manual) Band Neutrophils % Lymphocytes % (Manual) Atypical Lymphs % (Man) Monocytes % (Manual) Eosinophils % (Manual) Basophils % (Manual) Metamyelocytes % Myelocytes % Abs Neuts (Manual) Lymphocytes # (Manual) Atyp Lymphs # (Manual) Monocytes # (Manual) Eosinophils # (Manual) Basophils # (Manual) Metamyelocytes # Myelocytes # Smudge Cells Platelet Estimate Large Platelets Plt Morphology Comment RBC Morphology Polychromasia Hypochromasia Basophilic Stippling Microcytosis Macrocytosis Tear Drop Cells Ovalocytes Acanthocytes (Spur) Schistocytes Smear Tech's Comments Smear Path Review PT INR D-Dimer High Sensitivty Hep-Ind Thrombocytop Com VBG pH VBG pCO2 VBG pO2 VBG HCO3 VBG O2 Saturation VBG Base Excess Sodium Potassium Chloride Carbon Dioxide Anion Gap BUN Creatinine Estim Creat Clear Calc Estimated GFR POC Glucose 153 H 296 H 277 H Random Glucose Fasting Glucose Estimat Average Glucose Hemoglobin A1c % Lactic Acid Calcium Phosphorus Magnesium Ferritin Total Bilirubin Direct Bilirubin AST ALT Alkaline Phosphatase Lactate Dehydrogenase Total Creatine Kinase Troponin I High Sens C-Reactive Protein B-Natriuretic Peptide Total Protein Albumin Procalcitonin Urine Color Urine Appearance Urine pH Ur Specific [place] Urine Protein Urine Glucose (UA) Urine Ketones Urine Blood Urine Nitrite Ur Leukocyte Esterase Urine RBC Urine WBC Ur Squamous Epith Cells Amorphous Sediment Urine Bacteria Hyaline Casts Urine Mucus Urine Osmolality Ur Random Sodium Ur Random Potassium Urine Creatinine Urine Microalbumin Microalb/Creat Ratio Nasal Screen MRSA (PCR) Nasal S. aureus Screen Nasal MRSA/S.aureus Interp Gastric Occult Blood Stool Occult Blood Vancomycin Trough Random Vancomycin Heparin Dep Plt Ab OD Hep-Induced Plt Ab [place] COVID-19 ([facility]) COVID-19 Clin Com Influenza Type A (PCR) Influenza Type B (PCR) L.pneumophila IgM Ab Ur L.pneumophila Ag Pneumocystis Source Pneumocyst jiroveci PCR RSV RNA Qual (PCR) SARS-CoV-2 RNA (RT-PCR) Blood Type Antibody Screen 05/03/21 05/04/21 05/04/21 19:55 06:53 06:53 WBC 6.4 RBC 5.43 Hgb 15.3 Hct 46.9 MCV 86.4 MCH 28.2 MCHC 32.6 RDW 13.1 Plt Count 279 MPV 10.7 Immature Gran % (Auto) Neut % (Auto) Lymph % (Auto) [place] % (Auto) Eos % (Auto) Baso % (Auto) Lymph # (Auto) [place] # (Auto) Eos # (Auto) Baso # (Auto) Abs Immat Gran (auto) Absolute Neuts (auto) Absolute Nucleated RBC 0.000 Nucleated RBC % (auto) 0.0 Neutrophils % (Manual) Band Neutrophils % Lymphocytes % (Manual) Atypical Lymphs % (Man) Monocytes % (Manual) Eosinophils % (Manual) Basophils % (Manual) Metamyelocytes % Myelocytes % Abs Neuts (Manual) Lymphocytes # (Manual) Atyp Lymphs # (Manual) Monocytes # (Manual) Eosinophils # (Manual) Basophils # (Manual) Metamyelocytes # Myelocytes # Smudge Cells Platelet Estimate Large Platelets Plt Morphology Comment RBC Morphology Polychromasia Hypochromasia Basophilic Stippling Microcytosis Macrocytosis Tear Drop Cells Ovalocytes Acanthocytes (Spur) Schistocytes Smear Tech's Comments Smear Path Review PT INR D-Dimer High Sensitivty 8003 Hep-Ind Thrombocytop Com VBG pH VBG pCO2 VBG pO2 VBG HCO3 VBG O2 Saturation VBG Base Excess Sodium Potassium Chloride Carbon Dioxide Anion Gap BUN Creatinine Estim Creat Clear Calc Estimated GFR POC Glucose 307 H Random Glucose Fasting Glucose Estimat Average Glucose Hemoglobin A1c % Lactic Acid Calcium Phosphorus Magnesium Ferritin Total Bilirubin Direct Bilirubin AST ALT Alkaline Phosphatase Lactate Dehydrogenase Total Creatine Kinase Troponin I High Sens C-Reactive Protein B-Natriuretic Peptide Total Protein Albumin Procalcitonin Urine Color Urine Appearance Urine pH Ur Specific [place] Urine Protein Urine Glucose (UA) Urine Ketones Urine Blood Urine Nitrite Ur Leukocyte Esterase Urine RBC Urine WBC Ur Squamous Epith Cells Amorphous Sediment Urine Bacteria Hyaline Casts Urine Mucus Urine Osmolality Ur Random Sodium Ur Random Potassium Urine Creatinine Urine Microalbumin Microalb/Creat Ratio Nasal Screen MRSA (PCR) Nasal S. aureus Screen Nasal MRSA/S.aureus Interp Gastric Occult Blood Stool Occult Blood Vancomycin Trough Random Vancomycin Heparin Dep Plt Ab OD Hep-Induced Plt Ab [place] COVID-19 ([facility]) COVID-19 Clin Com Influenza Type A (PCR) Influenza Type B (PCR) L.pneumophila IgM Ab Ur L.pneumophila Ag Pneumocystis Source Pneumocyst jiroveci PCR RSV RNA Qual (PCR) SARS-CoV-2 RNA (RT-PCR) Blood Type Antibody Screen 05/04/21 05/04/21 05/04/21 06:53 07:29 11:16 WBC RBC Hgb Hct MCV MCH MCHC RDW Plt Count MPV Immature Gran % (Auto) Neut % (Auto) Lymph % (Auto) [place] % (Auto) Eos % (Auto) Baso % (Auto) Lymph # (Auto) [place] # (Auto) Eos # (Auto) Baso # (Auto) Abs Immat Gran (auto) Absolute Neuts (auto) Absolute Nucleated RBC Nucleated RBC % (auto) Neutrophils % (Manual) Band Neutrophils % Lymphocytes % (Manual) Atypical Lymphs % (Man) Monocytes % (Manual) Eosinophils % (Manual) Basophils % (Manual) Metamyelocytes % Myelocytes % Abs Neuts (Manual) Lymphocytes # (Manual) Atyp Lymphs # (Manual) Monocytes # (Manual) Eosinophils # (Manual) Basophils # (Manual) Metamyelocytes # Myelocytes # Smudge Cells Platelet Estimate Large Platelets Plt Morphology Comment RBC Morphology Polychromasia Hypochromasia Basophilic Stippling Microcytosis Macrocytosis Tear Drop Cells Ovalocytes Acanthocytes (Spur) Schistocytes Smear Tech's Comments Smear Path Review PT INR D-Dimer High Sensitivty Hep-Ind Thrombocytop Com VBG pH VBG pCO2 VBG pO2 VBG HCO3 VBG O2 Saturation VBG Base Excess Sodium 138 Potassium 5.3 H Chloride 108 Carbon Dioxide 20 L Anion Gap 15 BUN 81 H* Creatinine 1.47 H Estim Creat Clear Calc 59.9 Estimated GFR 48 POC Glucose 158 H 209 H Random Glucose Fasting Glucose 156 H Estimat Average Glucose Hemoglobin A1c % Lactic Acid Calcium 8.4 Phosphorus Magnesium Ferritin Total Bilirubin 0.8 Direct Bilirubin 0.5 AST 29 ALT 23 Alkaline Phosphatase 59 Lactate Dehydrogenase Total Creatine Kinase Troponin I High Sens C-Reactive Protein 4.82 H B-Natriuretic Peptide Total Protein 6.2 L Albumin 2.7 L Procalcitonin Urine Color Urine Appearance Urine pH Ur Specific [place] Urine Protein Urine Glucose (UA) Urine Ketones Urine Blood Urine Nitrite Ur Leukocyte Esterase Urine RBC Urine WBC Ur Squamous Epith Cells Amorphous Sediment Urine Bacteria Hyaline Casts Urine Mucus Urine Osmolality Ur Random Sodium Ur Random Potassium Urine Creatinine Urine Microalbumin Microalb/Creat Ratio Nasal Screen MRSA (PCR) Nasal S. aureus Screen Nasal MRSA/S.aureus Interp Gastric Occult Blood Stool Occult Blood Vancomycin Trough Random Vancomycin Heparin Dep Plt Ab OD Hep-Induced Plt Ab [place] COVID-19 ([facility]) COVID-19 Clin Com Influenza Type A (PCR) Influenza Type B (PCR) L.pneumophila IgM Ab Ur L.pneumophila Ag Pneumocystis Source Pneumocyst jiroveci PCR RSV RNA Qual (PCR) SARS-CoV-2 RNA (RT-PCR) Blood Type Antibody Screen 05/04/21 05/04/21 05/05/21 16:07 19:52 06:26 WBC 5.1 RBC 5.08 Hgb 14.8 Hct 44.3 MCV 87.2 MCH 29.1 MCHC 33.4 RDW 13.2 Plt Count 263 MPV 10.9 Immature Gran % (Auto) Neut % (Auto) Lymph % (Auto) [place] % (Auto) Eos % (Auto) Baso % (Auto) Lymph # (Auto) [place] # (Auto) Eos # (Auto) Baso # (Auto) Abs Immat Gran (auto) Absolute Neuts (auto) Absolute Nucleated RBC 0.000 Nucleated RBC % (auto) 0.0 Neutrophils % (Manual) Band Neutrophils % Lymphocytes % (Manual) Atypical Lymphs % (Man) Monocytes % (Manual) Eosinophils % (Manual) Basophils % (Manual) Metamyelocytes % Myelocytes % Abs Neuts (Manual) Lymphocytes # (Manual) Atyp Lymphs # (Manual) Monocytes # (Manual) Eosinophils # (Manual) Basophils # (Manual) Metamyelocytes # Myelocytes # Smudge Cells Platelet Estimate Large Platelets Plt Morphology Comment RBC Morphology Polychromasia Hypochromasia Basophilic Stippling Microcytosis Macrocytosis Tear Drop Cells Ovalocytes Acanthocytes (Spur) Schistocytes Smear Tech's Comments Smear Path Review PT INR D-Dimer High Sensitivty Hep-Ind Thrombocytop Com VBG pH VBG pCO2 VBG pO2 VBG HCO3 VBG O2 Saturation VBG Base Excess Sodium Potassium Chloride Carbon Dioxide Anion Gap BUN Creatinine Estim Creat Clear Calc Estimated GFR POC Glucose 213 H 251 H Random Glucose Fasting Glucose Estimat Average Glucose Hemoglobin A1c % Lactic Acid Calcium Phosphorus Magnesium Ferritin Total Bilirubin Direct Bilirubin AST ALT Alkaline Phosphatase Lactate Dehydrogenase Total Creatine Kinase Troponin I High Sens C-Reactive Protein B-Natriuretic Peptide Total Protein Albumin Procalcitonin Urine Color Urine Appearance Urine pH Ur Specific [place] Urine Protein Urine Glucose (UA) Urine Ketones Urine Blood Urine Nitrite Ur Leukocyte Esterase Urine RBC Urine WBC Ur Squamous Epith Cells Amorphous Sediment Urine Bacteria Hyaline Casts Urine Mucus Urine Osmolality Ur Random Sodium Ur Random Potassium Urine Creatinine Urine Microalbumin Microalb/Creat Ratio Nasal Screen MRSA (PCR) Nasal S. aureus Screen Nasal MRSA/S.aureus Interp Gastric Occult Blood Stool Occult Blood Vancomycin Trough Random Vancomycin Heparin Dep Plt Ab OD Hep-Induced Plt Ab [place] COVID-19 ([facility]) COVID-19 Clin Com Influenza Type A (PCR) Influenza Type B (PCR) L.pneumophila IgM Ab Ur L.pneumophila Ag Pneumocystis Source Pneumocyst jiroveci PCR RSV RNA Qual (PCR) SARS-CoV-2 RNA (RT-PCR) Blood Type Antibody Screen 05/05/21 05/05/21 05/05/21 06:26 07:48 11:03 WBC RBC Hgb Hct MCV MCH MCHC RDW Plt Count MPV Immature Gran % (Auto) Neut % (Auto) Lymph % (Auto) [place] % (Auto) Eos % (Auto) Baso % (Auto) Lymph # (Auto) [place] # (Auto) Eos # (Auto) Baso # (Auto) Abs Immat Gran (auto) Absolute Neuts (auto) Absolute Nucleated RBC Nucleated RBC % (auto) Neutrophils % (Manual) Band Neutrophils % Lymphocytes % (Manual) Atypical Lymphs % (Man) Monocytes % (Manual) Eosinophils % (Manual) Basophils % (Manual) Metamyelocytes % Myelocytes % Abs Neuts (Manual) Lymphocytes # (Manual) Atyp Lymphs # (Manual) Monocytes # (Manual) Eosinophils # (Manual) Basophils # (Manual) Metamyelocytes # Myelocytes # Smudge Cells Platelet Estimate Large Platelets Plt Morphology Comment RBC Morphology Polychromasia Hypochromasia Basophilic Stippling Microcytosis Macrocytosis Tear Drop Cells Ovalocytes Acanthocytes (Spur) Schistocytes Smear Tech's Comments Smear Path Review PT INR D-Dimer High Sensitivty Hep-Ind Thrombocytop Com VBG pH VBG pCO2 VBG pO2 VBG HCO3 VBG O2 Saturation VBG Base Excess Sodium 134 L Potassium 5.7 H Chloride 105 Carbon Dioxide 21 L Anion Gap 14 BUN 89 H* Creatinine 1.54 H Estim Creat Clear Calc 57.2 Estimated GFR 45 POC Glucose 133 H 277 H Random Glucose Fasting Glucose 115 H Estimat Average Glucose Hemoglobin A1c % Lactic Acid Calcium 8.4 Phosphorus Magnesium Ferritin Total Bilirubin Direct Bilirubin AST ALT Alkaline Phosphatase Lactate Dehydrogenase Total Creatine Kinase Troponin I High Sens C-Reactive Protein B-Natriuretic Peptide Total Protein Albumin Procalcitonin Urine Color Urine Appearance Urine pH Ur Specific [place] Urine Protein Urine Glucose (UA) Urine Ketones Urine Blood Urine Nitrite Ur Leukocyte Esterase Urine RBC Urine WBC Ur Squamous Epith Cells Amorphous Sediment Urine Bacteria Hyaline Casts Urine Mucus Urine Osmolality Ur Random Sodium Ur Random Potassium Urine Creatinine Urine Microalbumin Microalb/Creat Ratio Nasal Screen MRSA (PCR) Nasal S. aureus Screen Nasal MRSA/S.aureus Interp Gastric Occult Blood Stool Occult Blood Vancomycin Trough Random Vancomycin Heparin Dep Plt Ab OD Hep-Induced Plt Ab [place] COVID-19 ([facility]) COVID-19 Clin Com Influenza Type A (PCR) Influenza Type B (PCR) L.pneumophila IgM Ab Ur L.pneumophila Ag Pneumocystis Source Pneumocyst jiroveci PCR RSV RNA Qual (PCR) SARS-CoV-2 RNA (RT-PCR) Blood Type Antibody Screen 05/05/21 05/05/21 05/06/21 16:13 19:33 05:22 WBC 6.1 RBC 5.22 Hgb 14.8 Hct 45.5 MCV 87.2 MCH 28.4 MCHC 32.5 RDW 12.9 Plt Count 271 MPV 11.3 Immature Gran % (Auto) Neut % (Auto) Lymph % (Auto) [place] % (Auto) Eos % (Auto) Baso % (Auto) Lymph # (Auto) [place] # (Auto) Eos # (Auto) Baso # (Auto) Abs Immat Gran (auto) Absolute Neuts (auto) Absolute Nucleated RBC 0.000 Nucleated RBC % (auto) 0.0 Neutrophils % (Manual) Band Neutrophils % Lymphocytes % (Manual) Atypical Lymphs % (Man) Monocytes % (Manual) Eosinophils % (Manual) Basophils % (Manual) Metamyelocytes % Myelocytes % Abs Neuts (Manual) Lymphocytes # (Manual) Atyp Lymphs # (Manual) Monocytes # (Manual) Eosinophils # (Manual) Basophils # (Manual) Metamyelocytes # Myelocytes # Smudge Cells Platelet Estimate Large Platelets Plt Morphology Comment RBC Morphology Polychromasia Hypochromasia Basophilic Stippling Microcytosis Macrocytosis Tear Drop Cells Ovalocytes Acanthocytes (Spur) Schistocytes Smear Tech's Comments Smear Path Review PT INR D-Dimer High Sensitivty Hep-Ind Thrombocytop Com VBG pH VBG pCO2 VBG pO2 VBG HCO3 VBG O2 Saturation VBG Base Excess Sodium Potassium Chloride Carbon Dioxide Anion Gap BUN Creatinine Estim Creat Clear Calc Estimated GFR POC Glucose 380 H* 315 H Random Glucose Fasting Glucose Estimat Average Glucose Hemoglobin A1c % Lactic Acid Calcium Phosphorus Magnesium Ferritin Total Bilirubin Direct Bilirubin AST ALT Alkaline Phosphatase Lactate Dehydrogenase Total Creatine Kinase Troponin I High Sens C-Reactive Protein B-Natriuretic Peptide Total Protein Albumin Procalcitonin Urine Color Urine Appearance Urine pH Ur Specific [place] Urine Protein Urine Glucose (UA) Urine Ketones Urine Blood Urine Nitrite Ur Leukocyte Esterase Urine RBC Urine WBC Ur Squamous Epith Cells Amorphous Sediment Urine Bacteria Hyaline Casts Urine Mucus Urine Osmolality Ur Random Sodium Ur Random Potassium Urine Creatinine Urine Microalbumin Microalb/Creat Ratio Nasal Screen MRSA (PCR) Nasal S. aureus Screen Nasal MRSA/S.aureus Interp Gastric Occult Blood Stool Occult Blood Vancomycin Trough Random Vancomycin Heparin Dep Plt Ab OD Hep-Induced Plt Ab [place] COVID-19 ([facility]) COVID-19 Clin Com Influenza Type A (PCR) Influenza Type B (PCR) L.pneumophila IgM Ab Ur L.pneumophila Ag Pneumocystis Source Pneumocyst jiroveci PCR RSV RNA Qual (PCR) SARS-CoV-2 RNA (RT-PCR) Blood Type Antibody Screen 05/06/21 05/06/21 05/06/21 05:22 05:22 07:41 WBC RBC Hgb Hct MCV MCH MCHC RDW Plt Count MPV Immature Gran % (Auto) Neut % (Auto) Lymph % (Auto) [place] % (Auto) Eos % (Auto) Baso % (Auto) Lymph # (Auto) [place] # (Auto) Eos # (Auto) Baso # (Auto) Abs Immat Gran (auto) Absolute Neuts (auto) Absolute Nucleated RBC Nucleated RBC % (auto) Neutrophils % (Manual) Band Neutrophils % Lymphocytes % (Manual) Atypical Lymphs % (Man) Monocytes % (Manual) Eosinophils % (Manual) Basophils % (Manual) Metamyelocytes % Myelocytes % Abs Neuts (Manual) Lymphocytes # (Manual) Atyp Lymphs # (Manual) Monocytes # (Manual) Eosinophils # (Manual) Basophils # (Manual) Metamyelocytes # Myelocytes # Smudge Cells Platelet Estimate Large Platelets Plt Morphology Comment RBC Morphology Polychromasia Hypochromasia Basophilic Stippling Microcytosis Macrocytosis Tear Drop Cells Ovalocytes Acanthocytes (Spur) Schistocytes Smear Tech's Comments Smear Path Review PT INR D-Dimer High Sensitivty 4044 Hep-Ind Thrombocytop Com VBG pH VBG pCO2 VBG pO2 VBG HCO3 VBG O2 Saturation VBG Base Excess Sodium 133 L Potassium 5.6 H Chloride 104 Carbon Dioxide 18 L Anion Gap 17 BUN 99 H* Creatinine 1.71 H Estim Creat Clear Calc 51.6 Estimated GFR 40 POC Glucose 133 H Random Glucose Fasting Glucose 120 H Estimat Average Glucose Hemoglobin A1c % Lactic Acid Calcium 8.3 L Phosphorus Magnesium Ferritin Total Bilirubin Direct Bilirubin AST ALT Alkaline Phosphatase Lactate Dehydrogenase 494 H Total Creatine Kinase Troponin I High Sens C-Reactive Protein 6.36 H B-Natriuretic Peptide Total Protein Albumin Procalcitonin Urine Color Urine Appearance Urine pH Ur Specific [place] Urine Protein Urine Glucose (UA) Urine Ketones Urine Blood Urine Nitrite Ur Leukocyte Esterase Urine RBC Urine WBC Ur Squamous Epith Cells Amorphous Sediment Urine Bacteria Hyaline Casts Urine Mucus Urine Osmolality Ur Random Sodium Ur Random Potassium Urine Creatinine Urine Microalbumin Microalb/Creat Ratio Nasal Screen MRSA (PCR) Nasal S. aureus Screen Nasal MRSA/S.aureus Interp Gastric Occult Blood Stool Occult Blood Vancomycin Trough Random Vancomycin Heparin Dep Plt Ab OD Hep-Induced Plt Ab [place] COVID-19 ([facility]) COVID-19 Clin Com Influenza Type A (PCR) Influenza Type B (PCR) L.pneumophila IgM Ab Ur L.pneumophila Ag Pneumocystis Source Pneumocyst jiroveci PCR RSV RNA Qual (PCR) SARS-CoV-2 RNA (RT-PCR) Blood Type Antibody Screen 05/06/21 05/06/21 05/06/21 11:18 16:14 19:40 WBC RBC Hgb Hct MCV MCH MCHC RDW Plt Count MPV Immature Gran % (Auto) Neut % (Auto) Lymph % (Auto) [place] % (Auto) Eos % (Auto) Baso % (Auto) Lymph # (Auto) [place] # (Auto) Eos # (Auto) Baso # (Auto) Abs Immat Gran (auto) Absolute Neuts (auto) Absolute Nucleated RBC Nucleated RBC % (auto) Neutrophils % (Manual) Band Neutrophils % Lymphocytes % (Manual) Atypical Lymphs % (Man) Monocytes % (Manual) Eosinophils % (Manual) Basophils % (Manual) Metamyelocytes % Myelocytes % Abs Neuts (Manual) Lymphocytes # (Manual) Atyp Lymphs # (Manual) Monocytes # (Manual) Eosinophils # (Manual) Basophils # (Manual) Metamyelocytes # Myelocytes # Smudge Cells Platelet Estimate Large Platelets Plt Morphology Comment RBC Morphology Polychromasia Hypochromasia Basophilic Stippling Microcytosis Macrocytosis Tear Drop Cells Ovalocytes Acanthocytes (Spur) Schistocytes Smear Tech's Comments Smear Path Review PT INR D-Dimer High Sensitivty Hep-Ind Thrombocytop Com VBG pH VBG pCO2 VBG pO2 VBG HCO3 VBG O2 Saturation VBG Base Excess Sodium Potassium Chloride Carbon Dioxide Anion Gap BUN Creatinine Estim Creat Clear Calc Estimated GFR POC Glucose 186 H 297 H 300 H Random Glucose Fasting Glucose Estimat Average Glucose Hemoglobin A1c % Lactic Acid Calcium Phosphorus Magnesium Ferritin Total Bilirubin Direct Bilirubin AST ALT Alkaline Phosphatase Lactate Dehydrogenase Total Creatine Kinase Troponin I High Sens C-Reactive Protein B-Natriuretic Peptide Total Protein Albumin Procalcitonin Urine Color Urine Appearance Urine pH Ur Specific [place] Urine Protein Urine Glucose (UA) Urine Ketones Urine Blood Urine Nitrite Ur Leukocyte Esterase Urine RBC Urine WBC Ur Squamous Epith Cells Amorphous Sediment Urine Bacteria Hyaline Casts Urine Mucus Urine Osmolality Ur Random Sodium Ur Random Potassium Urine Creatinine Urine Microalbumin Microalb/Creat Ratio Nasal Screen MRSA (PCR) Nasal S. aureus Screen Nasal MRSA/S.aureus Interp Gastric Occult Blood Stool Occult Blood Vancomycin Trough Random Vancomycin Heparin Dep Plt Ab OD Hep-Induced Plt Ab [place] COVID-19 ([facility]) COVID-19 Clin Com Influenza Type A (PCR) Influenza Type B (PCR) L.pneumophila IgM Ab Ur L.pneumophila Ag Pneumocystis Source Pneumocyst jiroveci PCR RSV RNA Qual (PCR) SARS-CoV-2 RNA (RT-PCR) Blood Type Antibody Screen 11/28/21 11/28/21 11/28/21 06:48 06:48 08:00 WBC 8.6 RBC 5.56 Hgb 15.6 Hct 49.2 MCV 88.5 MCH 28.1 MCHC 31.7 RDW 12.9 Plt Count 257 MPV 12.2 Immature Gran % (Auto) Neut % (Auto) Lymph % (Auto) [place] % (Auto) Eos % (Auto) Baso % (Auto) Lymph # (Auto) [place] # (Auto) Eos # (Auto) Baso # (Auto) Abs Immat Gran (auto) Absolute Neuts (auto) Absolute Nucleated RBC 0.000 Nucleated RBC % (auto) 0.0 Neutrophils % (Manual) Band Neutrophils % Lymphocytes % (Manual) Atypical Lymphs % (Man) Monocytes % (Manual) Eosinophils % (Manual) Basophils % (Manual) Metamyelocytes % Myelocytes % Abs Neuts (Manual) Lymphocytes # (Manual) Atyp Lymphs # (Manual) Monocytes # (Manual) Eosinophils # (Manual) Basophils # (Manual) Metamyelocytes # Myelocytes # Smudge Cells Platelet Estimate Large Platelets Plt Morphology Comment RBC Morphology Polychromasia Hypochromasia Basophilic Stippling Microcytosis Macrocytosis Tear Drop Cells Ovalocytes Acanthocytes (Spur) Schistocytes Smear Tech's Comments Smear Path Review PT INR D-Dimer High Sensitivty Hep-Ind Thrombocytop Com VBG pH VBG pCO2 VBG pO2 VBG HCO3 VBG O2 Saturation VBG Base Excess Sodium 136 Potassium 5.7 H Chloride 105 Carbon Dioxide 20 L Anion Gap 17 BUN 112 H* Creatinine 1.74 H Estim Creat Clear Calc 51.0 Estimated GFR 39 POC Glucose 104 Random Glucose Fasting Glucose 119 H Estimat Average Glucose Hemoglobin A1c % Lactic Acid Calcium 8.7 Phosphorus Magnesium Ferritin Total Bilirubin Direct Bilirubin AST ALT Alkaline Phosphatase Lactate Dehydrogenase Total Creatine Kinase Troponin I High Sens C-Reactive Protein B-Natriuretic Peptide Total Protein Albumin Procalcitonin Urine Color Urine Appearance Urine pH Ur Specific [place] Urine Protein Urine Glucose (UA) Urine Ketones Urine Blood Urine Nitrite Ur Leukocyte Esterase Urine RBC Urine WBC Ur Squamous Epith Cells Amorphous Sediment Urine Bacteria Hyaline Casts Urine Mucus Urine Osmolality Ur Random Sodium Ur Random Potassium Urine Creatinine Urine Microalbumin Microalb/Creat Ratio Nasal Screen MRSA (PCR) Nasal S. aureus Screen Nasal MRSA/S.aureus Interp Gastric Occult Blood Stool Occult Blood Vancomycin Trough Random Vancomycin Heparin Dep Plt Ab OD Hep-Induced Plt Ab [place] COVID-19 ([facility]) COVID-19 Clin Com Influenza Type A (PCR) Influenza Type B (PCR) L.pneumophila IgM Ab Ur L.pneumophila Ag Pneumocystis Source Pneumocyst jiroveci PCR RSV RNA Qual (PCR) SARS-CoV-2 RNA (RT-PCR) Blood Type Antibody Screen 05/07/21 05/07/21 05/07/21 11:38 16:26 20:26 WBC RBC Hgb Hct MCV MCH MCHC RDW Plt Count MPV Immature Gran % (Auto) Neut % (Auto) Lymph % (Auto) [place] % (Auto) Eos % (Auto) Baso % (Auto) Lymph # (Auto) [place] # (Auto) Eos # (Auto) Baso # (Auto) Abs Immat Gran (auto) Absolute Neuts (auto) Absolute Nucleated RBC Nucleated RBC % (auto) Neutrophils % (Manual) Band Neutrophils % Lymphocytes % (Manual) Atypical Lymphs % (Man) Monocytes % (Manual) Eosinophils % (Manual) Basophils % (Manual) Metamyelocytes % Myelocytes % Abs Neuts (Manual) Lymphocytes # (Manual) Atyp Lymphs # (Manual) Monocytes # (Manual) Eosinophils # (Manual) Basophils # (Manual) Metamyelocytes # Myelocytes # Smudge Cells Platelet Estimate Large Platelets Plt Morphology Comment RBC Morphology Polychromasia Hypochromasia Basophilic Stippling Microcytosis Macrocytosis Tear Drop Cells Ovalocytes Acanthocytes (Spur) Schistocytes Smear Tech's Comments Smear Path Review PT INR D-Dimer High Sensitivty Hep-Ind Thrombocytop Com VBG pH VBG pCO2 VBG pO2 VBG HCO3 VBG O2 Saturation VBG Base Excess Sodium Potassium Chloride Carbon Dioxide Anion Gap BUN Creatinine Estim Creat Clear Calc Estimated GFR POC Glucose 126 H 217 H 245 H Random Glucose Fasting Glucose Estimat Average Glucose Hemoglobin A1c % Lactic Acid Calcium Phosphorus Magnesium Ferritin Total Bilirubin Direct Bilirubin AST ALT Alkaline Phosphatase Lactate Dehydrogenase Total Creatine Kinase Troponin I High Sens C-Reactive Protein B-Natriuretic Peptide Total Protein Albumin Procalcitonin Urine Color Urine Appearance Urine pH Ur Specific [place] Urine Protein Urine Glucose (UA) Urine Ketones Urine Blood Urine Nitrite Ur Leukocyte Esterase Urine RBC Urine WBC Ur Squamous Epith Cells Amorphous Sediment Urine Bacteria Hyaline Casts Urine Mucus Urine Osmolality Ur Random Sodium Ur Random Potassium Urine Creatinine Urine Microalbumin Microalb/Creat Ratio Nasal Screen MRSA (PCR) Nasal S. aureus Screen Nasal MRSA/S.aureus Interp Gastric Occult Blood Stool Occult Blood Vancomycin Trough Random Vancomycin Heparin Dep Plt Ab OD Hep-Induced Plt Ab [place] COVID-19 ([facility]) COVID-19 Clin Com Influenza Type A (PCR) Influenza Type B (PCR) L.pneumophila IgM Ab Ur L.pneumophila Ag Pneumocystis Source Pneumocyst jiroveci PCR RSV RNA Qual (PCR) SARS-CoV-2 RNA (RT-PCR) Blood Type Antibody Screen 05/08/21 05/08/21 05/08/21 05:52 05:52 07:37 WBC 13.1 H RBC 5.14 Hgb 15.3 Hct 50.4 MCV 98.1 H D MCH 29.8 MCHC 30.4 L RDW 13.6 Plt Count 207 MPV 10.9 Immature Gran % (Auto) Neut % (Auto) Lymph % (Auto) [place] % (Auto) Eos % (Auto) Baso % (Auto) Lymph # (Auto) [place] # (Auto) Eos # (Auto) Baso # (Auto) Abs Immat Gran (auto) Absolute Neuts (auto) Absolute Nucleated RBC 0.000 Nucleated RBC % (auto) 0.0 Neutrophils % (Manual) Band Neutrophils % Lymphocytes % (Manual) Atypical Lymphs % (Man) Monocytes % (Manual) Eosinophils % (Manual) Basophils % (Manual) Metamyelocytes % Myelocytes % Abs Neuts (Manual) Lymphocytes # (Manual) Atyp Lymphs # (Manual) Monocytes # (Manual) Eosinophils # (Manual) Basophils # (Manual) Metamyelocytes # Myelocytes # Smudge Cells Platelet Estimate Large Platelets Plt Morphology Comment RBC Morphology Polychromasia Hypochromasia Basophilic Stippling Microcytosis Macrocytosis Tear Drop Cells Ovalocytes Acanthocytes (Spur) Schistocytes Smear Tech's Comments Smear Path Review PT INR D-Dimer High Sensitivty 3906 Hep-Ind Thrombocytop Com VBG pH VBG pCO2 VBG pO2 VBG HCO3 VBG O2 Saturation VBG Base Excess Sodium Potassium Chloride Carbon Dioxide Anion Gap BUN Creatinine Estim Creat Clear Calc Estimated GFR POC Glucose 81 Random Glucose Fasting Glucose Estimat Average Glucose Hemoglobin A1c % Lactic Acid Calcium Phosphorus Magnesium Ferritin Total Bilirubin Direct Bilirubin AST ALT Alkaline Phosphatase Lactate Dehydrogenase Total Creatine Kinase Troponin I High Sens C-Reactive Protein B-Natriuretic Peptide Total Protein Albumin Procalcitonin Urine Color Urine Appearance Urine pH Ur Specific [place] Urine Protein Urine Glucose (UA) Urine Ketones Urine Blood Urine Nitrite Ur Leukocyte Esterase Urine RBC Urine WBC Ur Squamous Epith Cells Amorphous Sediment Urine Bacteria Hyaline Casts Urine Mucus Urine Osmolality Ur Random Sodium Ur Random Potassium Urine Creatinine Urine Microalbumin Microalb/Creat Ratio Nasal Screen MRSA (PCR) Nasal S. aureus Screen Nasal MRSA/S.aureus Interp Gastric Occult Blood Stool Occult Blood Vancomycin Trough Random Vancomycin Heparin Dep Plt Ab OD Hep-Induced Plt Ab [place] COVID-19 ([facility]) COVID-19 Clin Com Influenza Type A (PCR) Influenza Type B (PCR) L.pneumophila IgM Ab Ur L.pneumophila Ag Pneumocystis Source Pneumocyst jiroveci PCR RSV RNA Qual (PCR) SARS-CoV-2 RNA (RT-PCR) Blood Type Antibody Screen 05/08/21 05/08/21 05/08/21 08:00 11:15 16:01 WBC RBC Hgb Hct MCV MCH MCHC RDW Plt Count MPV Immature Gran % (Auto) Neut % (Auto) Lymph % (Auto) [place] % (Auto) Eos % (Auto) Baso % (Auto) Lymph # (Auto) [place] # (Auto) Eos # (Auto) Baso # (Auto) Abs Immat Gran (auto) Absolute Neuts (auto) Absolute Nucleated RBC Nucleated RBC % (auto) Neutrophils % (Manual) Band Neutrophils % Lymphocytes % (Manual) Atypical Lymphs % (Man) Monocytes % (Manual) Eosinophils % (Manual) Basophils % (Manual) Metamyelocytes % Myelocytes % Abs Neuts (Manual) Lymphocytes # (Manual) Atyp Lymphs # (Manual) Monocytes # (Manual) Eosinophils # (Manual) Basophils # (Manual) Metamyelocytes # Myelocytes # Smudge Cells Platelet Estimate Large Platelets Plt Morphology Comment RBC Morphology Polychromasia Hypochromasia Basophilic Stippling Microcytosis Macrocytosis Tear Drop Cells Ovalocytes Acanthocytes (Spur) Schistocytes Smear Tech's Comments Smear Path Review PT INR D-Dimer High Sensitivty Hep-Ind Thrombocytop Com VBG pH VBG pCO2 VBG pO2 VBG HCO3 VBG O2 Saturation VBG Base Excess Sodium 138 Potassium 5.4 H Chloride 107 Carbon Dioxide 20 L Anion Gap 16 BUN 115 H* Creatinine 1.65 H Estim Creat Clear Calc 53.4 Estimated GFR 42 POC Glucose 87 141 H Random Glucose Fasting Glucose 74 D Estimat Average Glucose Hemoglobin A1c % Lactic Acid Calcium 8.6 Phosphorus Magnesium Ferritin Total Bilirubin Direct Bilirubin AST ALT Alkaline Phosphatase Lactate Dehydrogenase 432 H Total Creatine Kinase Troponin I High Sens C-Reactive Protein 5.42 H B-Natriuretic Peptide Total Protein Albumin Procalcitonin Urine Color Urine Appearance Urine pH Ur Specific [place] Urine Protein Urine Glucose (UA) Urine Ketones Urine Blood Urine Nitrite Ur Leukocyte Esterase Urine RBC Urine WBC Ur Squamous Epith Cells Amorphous Sediment Urine Bacteria Hyaline Casts Urine Mucus Urine Osmolality Ur Random Sodium Ur Random Potassium Urine Creatinine Urine Microalbumin Microalb/Creat Ratio Nasal Screen MRSA (PCR) Nasal S. aureus Screen Nasal MRSA/S.aureus Interp Gastric Occult Blood Stool Occult Blood Vancomycin Trough Random Vancomycin Heparin Dep Plt Ab OD Hep-Induced Plt Ab [place] COVID-19 ([facility]) COVID-19 Clin Com Influenza Type A (PCR) Influenza Type B (PCR) L.pneumophila IgM Ab Ur L.pneumophila Ag Pneumocystis Source Pneumocyst jiroveci PCR RSV RNA Qual (PCR) SARS-CoV-2 RNA (RT-PCR) Blood Type Antibody Screen 05/08/21 05/09/21 05/09/21 20:01 06:19 06:19 WBC 11.8 H RBC 4.96 Hgb 14.3 Hct 43.4 MCV 87.5 D MCH 28.8 MCHC 32.9 RDW 13.1 Plt Count 250 MPV 11.2 Immature Gran % (Auto) Neut % (Auto) Lymph % (Auto) [place] % (Auto) Eos % (Auto) Baso % (Auto) Lymph # (Auto) [place] # (Auto) Eos # (Auto) Baso # (Auto) Abs Immat Gran (auto) Absolute Neuts (auto) Absolute Nucleated RBC 0.000 Nucleated RBC % (auto) 0.0 Neutrophils % (Manual) Band Neutrophils % Lymphocytes % (Manual) Atypical Lymphs % (Man) Monocytes % (Manual) Eosinophils % (Manual) Basophils % (Manual) Metamyelocytes % Myelocytes % Abs Neuts (Manual) Lymphocytes # (Manual) Atyp Lymphs # (Manual) Monocytes # (Manual) Eosinophils # (Manual) Basophils # (Manual) Metamyelocytes # Myelocytes # Smudge Cells Platelet Estimate Large Platelets Plt Morphology Comment RBC Morphology Polychromasia Hypochromasia Basophilic Stippling Microcytosis Macrocytosis Tear Drop Cells Ovalocytes Acanthocytes (Spur) Schistocytes Smear Tech's Comments Smear Path Review PT INR D-Dimer High Sensitivty Hep-Ind Thrombocytop Com VBG pH VBG pCO2 VBG pO2 VBG HCO3 VBG O2 Saturation VBG Base Excess Sodium 134 L Potassium 5.2 H Chloride 105 Carbon Dioxide 20 L Anion Gap 14 BUN 119 H* Creatinine 1.72 H Estim Creat Clear Calc 51.2 Estimated GFR 40 POC Glucose 205 H Random Glucose Fasting Glucose 69 Estimat Average Glucose Hemoglobin A1c % Lactic Acid Calcium 8.5 Phosphorus Magnesium Ferritin Total Bilirubin Direct Bilirubin AST ALT Alkaline Phosphatase Lactate Dehydrogenase Total Creatine Kinase Troponin I High Sens C-Reactive Protein B-Natriuretic Peptide Total Protein Albumin Procalcitonin Urine Color Urine Appearance Urine pH Ur Specific [place] Urine Protein Urine Glucose (UA) Urine Ketones Urine Blood Urine Nitrite Ur Leukocyte Esterase Urine RBC Urine WBC Ur Squamous Epith Cells Amorphous Sediment Urine Bacteria Hyaline Casts Urine Mucus Urine Osmolality Ur Random Sodium Ur Random Potassium Urine Creatinine Urine Microalbumin Microalb/Creat Ratio Nasal Screen MRSA (PCR) Nasal S. aureus Screen Nasal MRSA/S.aureus Interp Gastric Occult Blood Stool Occult Blood Vancomycin Trough Random Vancomycin Heparin Dep Plt Ab OD Hep-Induced Plt Ab [place] COVID-19 ([facility]) COVID-19 Clin Com Influenza Type A (PCR) Influenza Type B (PCR) L.pneumophila IgM Ab Ur L.pneumophila Ag Pneumocystis Source Pneumocyst jiroveci PCR RSV RNA Qual (PCR) SARS-CoV-2 RNA (RT-PCR) Blood Type Antibody Screen 05/09/21 05/09/21 05/09/21 07:46 10:17 11:14 WBC RBC Hgb Hct MCV MCH MCHC RDW Plt Count MPV Immature Gran % (Auto) Neut % (Auto) Lymph % (Auto) [place] % (Auto) Eos % (Auto) Baso % (Auto) Lymph # (Auto) [place] # (Auto) Eos # (Auto) Baso # (Auto) Abs Immat Gran (auto) Absolute Neuts (auto) Absolute Nucleated RBC Nucleated RBC % (auto) Neutrophils % (Manual) Band Neutrophils % Lymphocytes % (Manual) Atypical Lymphs % (Man) Monocytes % (Manual) Eosinophils % (Manual) Basophils % (Manual) Metamyelocytes % Myelocytes % Abs Neuts (Manual) Lymphocytes # (Manual) Atyp Lymphs # (Manual) Monocytes # (Manual) Eosinophils # (Manual) Basophils # (Manual) Metamyelocytes # Myelocytes # Smudge Cells Platelet Estimate Large Platelets Plt Morphology Comment RBC Morphology Polychromasia Hypochromasia Basophilic Stippling Microcytosis Macrocytosis Tear Drop Cells Ovalocytes Acanthocytes (Spur) Schistocytes Smear Tech's Comments Smear Path Review PT INR D-Dimer High Sensitivty Hep-Ind Thrombocytop Com VBG pH VBG pCO2 VBG pO2 VBG HCO3 VBG O2 Saturation VBG Base Excess Sodium Potassium Chloride Carbon Dioxide Anion Gap BUN Creatinine Estim Creat Clear Calc Estimated GFR POC Glucose 66 181 H 181 H Random Glucose Fasting Glucose Estimat Average Glucose Hemoglobin A1c % Lactic Acid Calcium Phosphorus Magnesium Ferritin Total Bilirubin Direct Bilirubin AST ALT Alkaline Phosphatase Lactate Dehydrogenase Total Creatine Kinase Troponin I High Sens C-Reactive Protein B-Natriuretic Peptide Total Protein Albumin Procalcitonin Urine Color Urine Appearance Urine pH Ur Specific [place] Urine Protein Urine Glucose (UA) Urine Ketones Urine Blood Urine Nitrite Ur Leukocyte Esterase Urine RBC Urine WBC Ur Squamous Epith Cells Amorphous Sediment Urine Bacteria Hyaline Casts Urine Mucus Urine Osmolality Ur Random Sodium Ur Random Potassium Urine Creatinine Urine Microalbumin Microalb/Creat Ratio Nasal Screen MRSA (PCR) Nasal S. aureus Screen Nasal MRSA/S.aureus Interp Gastric Occult Blood Stool Occult Blood Vancomycin Trough Random Vancomycin Heparin Dep Plt Ab OD Hep-Induced Plt Ab [place] COVID-19 ([facility]) COVID-19 Clin Com Influenza Type A (PCR) Influenza Type B (PCR) L.pneumophila IgM Ab Ur L.pneumophila Ag Pneumocystis Source Pneumocyst jiroveci PCR RSV RNA Qual (PCR) SARS-CoV-2 RNA (RT-PCR) Blood Type Antibody Screen 05/09/21 05/09/21 05/09/21 15:30 20:17 21:17 WBC RBC Hgb Hct MCV MCH MCHC RDW Plt Count MPV Immature Gran % (Auto) Neut % (Auto) Lymph % (Auto) [place] % (Auto) Eos % (Auto) Baso % (Auto) Lymph # (Auto) [place] # (Auto) Eos # (Auto) Baso # (Auto) Abs Immat Gran (auto) Absolute Neuts (auto) Absolute Nucleated RBC Nucleated RBC % (auto) Neutrophils % (Manual) Band Neutrophils % Lymphocytes % (Manual) Atypical Lymphs % (Man) Monocytes % (Manual) Eosinophils % (Manual) Basophils % (Manual) Metamyelocytes % Myelocytes % Abs Neuts (Manual) Lymphocytes # (Manual) Atyp Lymphs # (Manual) Monocytes # (Manual) Eosinophils # (Manual) Basophils # (Manual) Metamyelocytes # Myelocytes # Smudge Cells Platelet Estimate Large Platelets Plt Morphology Comment RBC Morphology Polychromasia Hypochromasia Basophilic Stippling Microcytosis Macrocytosis Tear Drop Cells Ovalocytes Acanthocytes (Spur) Schistocytes Smear Tech's Comments Smear Path Review PT INR D-Dimer High Sensitivty Hep-Ind Thrombocytop Com VBG pH VBG pCO2 VBG pO2 VBG HCO3 VBG O2 Saturation VBG Base Excess Sodium Potassium Chloride Carbon Dioxide Anion Gap BUN Creatinine Estim Creat Clear Calc Estimated GFR POC Glucose 190 H 277 H 294 H Random Glucose Fasting Glucose Estimat Average Glucose Hemoglobin A1c % Lactic Acid Calcium Phosphorus Magnesium Ferritin Total Bilirubin Direct Bilirubin AST ALT Alkaline Phosphatase Lactate Dehydrogenase Total Creatine Kinase Troponin I High Sens C-Reactive Protein B-Natriuretic Peptide Total Protein Albumin Procalcitonin Urine Color Urine Appearance Urine pH Ur Specific [place] Urine Protein Urine Glucose (UA) Urine Ketones Urine Blood Urine Nitrite Ur Leukocyte Esterase Urine RBC Urine WBC Ur Squamous Epith Cells Amorphous Sediment Urine Bacteria Hyaline Casts Urine Mucus Urine Osmolality Ur Random Sodium Ur Random Potassium Urine Creatinine Urine Microalbumin Microalb/Creat Ratio Nasal Screen MRSA (PCR) Nasal S. aureus Screen Nasal MRSA/S.aureus Interp Gastric Occult Blood Stool Occult Blood Vancomycin Trough Random Vancomycin Heparin Dep Plt Ab OD Hep-Induced Plt Ab [place] COVID-19 ([facility]) COVID-19 Clin Com Influenza Type A (PCR) Influenza Type B (PCR) L.pneumophila IgM Ab Ur L.pneumophila Ag Pneumocystis Source Pneumocyst jiroveci PCR RSV RNA Qual (PCR) SARS-CoV-2 RNA (RT-PCR) Blood Type Antibody Screen 05/10/21 05/10/21 05/10/21 05:47 05:47 05:47 WBC 14.4 H RBC 5.01 Hgb 14.3 Hct 43.6 MCV 87.0 MCH 28.5 MCHC 32.8 RDW 12.9 Plt Count 243 MPV 11.5 Immature Gran % (Auto) Neut % (Auto) Lymph % (Auto) [place] % (Auto) Eos % (Auto) Baso % (Auto) Lymph # (Auto) [place] # (Auto) Eos # (Auto) Baso # (Auto) Abs Immat Gran (auto) Absolute Neuts (auto) Absolute Nucleated RBC 0.000 Nucleated RBC % (auto) 0.0 Neutrophils % (Manual) Band Neutrophils % Lymphocytes % (Manual) Atypical Lymphs % (Man) Monocytes % (Manual) Eosinophils % (Manual) Basophils % (Manual) Metamyelocytes % Myelocytes % Abs Neuts (Manual) Lymphocytes # (Manual) Atyp Lymphs # (Manual) Monocytes # (Manual) Eosinophils # (Manual) Basophils # (Manual) Metamyelocytes # Myelocytes # Smudge Cells Platelet Estimate Large Platelets Plt Morphology Comment RBC Morphology Polychromasia Hypochromasia Basophilic Stippling Microcytosis Macrocytosis Tear Drop Cells Ovalocytes Acanthocytes (Spur) Schistocytes Smear Tech's Comments Smear Path Review PT INR D-Dimer High Sensitivty 2599 Hep-Ind Thrombocytop Com VBG pH VBG pCO2 VBG pO2 VBG HCO3 VBG O2 Saturation VBG Base Excess Sodium 138 Potassium 5.6 H Chloride 110 H Carbon Dioxide 18 L Anion Gap 16 BUN 122 H Creatinine 1.78 H Estim Creat Clear Calc 49.5 Estimated GFR 38 POC Glucose Random Glucose Fasting Glucose 94 D Estimat Average Glucose Hemoglobin A1c % Lactic Acid Calcium 8.4 Phosphorus Magnesium 2.5 Ferritin Total Bilirubin 0.6 Direct Bilirubin 0.4 AST 25 ALT 17 Alkaline Phosphatase 64 Lactate Dehydrogenase 480 H Total Creatine Kinase Troponin I High Sens C-Reactive Protein 8.92 H B-Natriuretic Peptide Total Protein 5.5 L Albumin 2.2 L Procalcitonin Urine Color Urine Appearance Urine pH Ur Specific [place] Urine Protein Urine Glucose (UA) Urine Ketones Urine Blood Urine Nitrite Ur Leukocyte Esterase Urine RBC Urine WBC Ur Squamous Epith Cells Amorphous Sediment Urine Bacteria Hyaline Casts Urine Mucus Urine Osmolality Ur Random Sodium Ur Random Potassium Urine Creatinine Urine Microalbumin Microalb/Creat Ratio Nasal Screen MRSA (PCR) Nasal S. aureus Screen Nasal MRSA/S.aureus Interp Gastric Occult Blood Stool Occult Blood Vancomycin Trough Random Vancomycin Heparin Dep Plt Ab OD Hep-Induced Plt Ab [place] COVID-19 ([facility]) COVID-19 Clin Com Influenza Type A (PCR) Influenza Type B (PCR) L.pneumophila IgM Ab Ur L.pneumophila Ag Pneumocystis Source Pneumocyst jiroveci PCR RSV RNA Qual (PCR) SARS-CoV-2 RNA (RT-PCR) Blood Type Antibody Screen 05/10/21 05/10/21 05/10/21 05:47 07:15 11:15 WBC RBC Hgb Hct MCV MCH MCHC RDW Plt Count MPV Immature Gran % (Auto) Neut % (Auto) Lymph % (Auto) [place] % (Auto) Eos % (Auto) Baso % (Auto) Lymph # (Auto) [place] # (Auto) Eos # (Auto) Baso # (Auto) Abs Immat Gran (auto) Absolute Neuts (auto) Absolute Nucleated RBC Nucleated RBC % (auto) Neutrophils % (Manual) Band Neutrophils % Lymphocytes % (Manual) Atypical Lymphs % (Man) Monocytes % (Manual) Eosinophils % (Manual) Basophils % (Manual) Metamyelocytes % Myelocytes % Abs Neuts (Manual) Lymphocytes # (Manual) Atyp Lymphs # (Manual) Monocytes # (Manual) Eosinophils # (Manual) Basophils # (Manual) Metamyelocytes # Myelocytes # Smudge Cells Platelet Estimate Large Platelets Plt Morphology Comment RBC Morphology Polychromasia Hypochromasia Basophilic Stippling Microcytosis Macrocytosis Tear Drop Cells Ovalocytes Acanthocytes (Spur) Schistocytes Smear Tech's Comments Smear Path Review PT INR D-Dimer High Sensitivty Hep-Ind Thrombocytop Com VBG pH 7.42 VBG pCO2 31 VBG pO2 83 VBG HCO3 20 L VBG O2 Saturation 95.0 VBG Base Excess -2.8 Sodium Potassium Chloride Carbon Dioxide Anion Gap BUN Creatinine Estim Creat Clear Calc Estimated GFR POC Glucose 87 119 H Random Glucose Fasting Glucose Estimat Average Glucose Hemoglobin A1c % Lactic Acid Calcium Phosphorus Magnesium Ferritin Total Bilirubin Direct Bilirubin AST ALT Alkaline Phosphatase Lactate Dehydrogenase Total Creatine Kinase Troponin I High Sens C-Reactive Protein B-Natriuretic Peptide Total Protein Albumin Procalcitonin Urine Color Urine Appearance Urine pH Ur Specific [place] Urine Protein Urine Glucose (UA) Urine Ketones Urine Blood Urine Nitrite Ur Leukocyte Esterase Urine RBC Urine WBC Ur Squamous Epith Cells Amorphous Sediment Urine Bacteria Hyaline Casts Urine Mucus Urine Osmolality Ur Random Sodium Ur Random Potassium Urine Creatinine Urine Microalbumin Microalb/Creat Ratio Nasal Screen MRSA (PCR) Nasal S. aureus Screen Nasal MRSA/S.aureus Interp Gastric Occult Blood Stool Occult Blood Vancomycin Trough Random Vancomycin Heparin Dep Plt Ab OD Hep-Induced Plt Ab [place] COVID-19 ([facility]) COVID-19 Clin Com Influenza Type A (PCR) Influenza Type B (PCR) L.pneumophila IgM Ab Ur L.pneumophila Ag Pneumocystis Source Pneumocyst jiroveci PCR RSV RNA Qual (PCR) SARS-CoV-2 RNA (RT-PCR) Blood Type Antibody Screen 05/10/21 05/10/21 05/11/21 16:25 20:13 07:20 WBC 13.5 H RBC 4.93 Hgb 13.8 L Hct 42.8 MCV 86.8 MCH 28.0 MCHC 32.2 RDW 13.2 Plt Count 205 MPV 11.4 Immature Gran % (Auto) 0.4 Neut % (Auto) 94.3 H Lymph % (Auto) 2.3 L [place] % (Auto) 2.8 Eos % (Auto) 0.1 Baso % (Auto) 0.1 Lymph # (Auto) 0.3 L [place] # (Auto) 0.4 Eos # (Auto) 0.0 Baso # (Auto) 0.0 Abs Immat Gran (auto) 0.06 H Absolute Neuts (auto) 12.7 H Absolute Nucleated RBC 0.000 Nucleated RBC % (auto) 0.0 Neutrophils % (Manual) Band Neutrophils % Lymphocytes % (Manual) Atypical Lymphs % (Man) Monocytes % (Manual) Eosinophils % (Manual) Basophils % (Manual) Metamyelocytes % Myelocytes % Abs Neuts (Manual) Lymphocytes # (Manual) Atyp Lymphs # (Manual) Monocytes # (Manual) Eosinophils # (Manual) Basophils # (Manual) Metamyelocytes # Myelocytes # Smudge Cells Platelet Estimate Large Platelets Plt Morphology Comment RBC Morphology Polychromasia Hypochromasia Basophilic Stippling Microcytosis Macrocytosis Tear Drop Cells Ovalocytes Acanthocytes (Spur) Schistocytes Smear Tech's Comments VERIFIED Smear Path Review PT INR D-Dimer High Sensitivty Hep-Ind Thrombocytop Com VBG pH VBG pCO2 VBG pO2 VBG HCO3 VBG O2 Saturation VBG Base Excess Sodium Potassium Chloride Carbon Dioxide Anion Gap BUN Creatinine Estim Creat Clear Calc Estimated GFR POC Glucose 180 H 273 H Random Glucose Fasting Glucose Estimat Average Glucose Hemoglobin A1c % Lactic Acid Calcium Phosphorus Magnesium Ferritin Total Bilirubin Direct Bilirubin AST ALT Alkaline Phosphatase Lactate Dehydrogenase Total Creatine Kinase Troponin I High Sens C-Reactive Protein B-Natriuretic Peptide Total Protein Albumin Procalcitonin Urine Color Urine Appearance Urine pH Ur Specific [place] Urine Protein Urine Glucose (UA) Urine Ketones Urine Blood Urine Nitrite Ur Leukocyte Esterase Urine RBC Urine WBC Ur Squamous Epith Cells Amorphous Sediment Urine Bacteria Hyaline Casts Urine Mucus Urine Osmolality Ur Random Sodium Ur Random Potassium Urine Creatinine Urine Microalbumin Microalb/Creat Ratio Nasal Screen MRSA (PCR) Nasal S. aureus Screen Nasal MRSA/S.aureus Interp Gastric Occult Blood Stool Occult Blood Vancomycin Trough Random Vancomycin Heparin Dep Plt Ab OD Hep-Induced Plt Ab [place] COVID-19 ([facility]) COVID-19 Clin Com Influenza Type A (PCR) Influenza Type B (PCR) L.pneumophila IgM Ab Ur L.pneumophila Ag Pneumocystis Source Pneumocyst jiroveci PCR RSV RNA Qual (PCR) SARS-CoV-2 RNA (RT-PCR) Blood Type Antibody Screen 05/11/21 05/11/21 05/11/21 07:20 07:20 07:22 WBC RBC Hgb Hct MCV MCH MCHC RDW Plt Count MPV Immature Gran % (Auto) Neut % (Auto) Lymph % (Auto) [place] % (Auto) Eos % (Auto) Baso % (Auto) Lymph # (Auto) [place] # (Auto) Eos # (Auto) Baso # (Auto) Abs Immat Gran (auto) Absolute Neuts (auto) Absolute Nucleated RBC Nucleated RBC % (auto) Neutrophils % (Manual) Band Neutrophils % Lymphocytes % (Manual) Atypical Lymphs % (Man) Monocytes % (Manual) Eosinophils % (Manual) Basophils % (Manual) Metamyelocytes % Myelocytes % Abs Neuts (Manual) Lymphocytes # (Manual) Atyp Lymphs # (Manual) Monocytes # (Manual) Eosinophils # (Manual) Basophils # (Manual) Metamyelocytes # Myelocytes # Smudge Cells Platelet Estimate Large Platelets Plt Morphology Comment RBC Morphology Polychromasia Hypochromasia Basophilic Stippling Microcytosis Macrocytosis Tear Drop Cells Ovalocytes Acanthocytes (Spur) Schistocytes Smear Tech's Comments Smear Path Review PT INR D-Dimer High Sensitivty 2269 Hep-Ind Thrombocytop Com VBG pH VBG pCO2 VBG pO2 VBG HCO3 VBG O2 Saturation VBG Base Excess Sodium 138 Potassium 5.6 H Chloride 105 Carbon Dioxide 26 Anion Gap 13 BUN 101 H Creatinine 1.48 H Estim Creat Clear Calc 59.1 Estimated GFR 48 POC Glucose 199 H Random Glucose 211 H D Fasting Glucose Estimat Average Glucose Hemoglobin A1c % Lactic Acid Calcium 8.4 Phosphorus Magnesium Ferritin 2662 H Total Bilirubin Direct Bilirubin AST ALT Alkaline Phosphatase Lactate Dehydrogenase 431 H Total Creatine Kinase Troponin I High Sens C-Reactive Protein B-Natriuretic Peptide Total Protein Albumin Procalcitonin Urine Color Urine Appearance Urine pH Ur Specific [place] Urine Protein Urine Glucose (UA) Urine Ketones Urine Blood Urine Nitrite Ur Leukocyte Esterase Urine RBC Urine WBC Ur Squamous Epith Cells Amorphous Sediment Urine Bacteria Hyaline Casts Urine Mucus Urine Osmolality Ur Random Sodium Ur Random Potassium Urine Creatinine Urine Microalbumin Microalb/Creat Ratio Nasal Screen MRSA (PCR) Nasal S. aureus Screen Nasal MRSA/S.aureus Interp Gastric Occult Blood Stool Occult Blood Vancomycin Trough Random Vancomycin Heparin Dep Plt Ab OD Hep-Induced Plt Ab [place] COVID-19 ([facility]) COVID-19 Clin Com Influenza Type A (PCR) Influenza Type B (PCR) L.pneumophila IgM Ab Ur L.pneumophila Ag Pneumocystis Source Pneumocyst jiroveci PCR RSV RNA Qual (PCR) SARS-CoV-2 RNA (RT-PCR) Blood Type Antibody Screen 05/11/21 05/11/21 05/11/21 07:26 11:16 16:45 WBC RBC Hgb Hct MCV MCH MCHC RDW Plt Count MPV Immature Gran % (Auto) Neut % (Auto) Lymph % (Auto) [place] % (Auto) Eos % (Auto) Baso % (Auto) Lymph # (Auto) [place] # (Auto) Eos # (Auto) Baso # (Auto) Abs Immat Gran (auto) Absolute Neuts (auto) Absolute Nucleated RBC Nucleated RBC % (auto) Neutrophils % (Manual) Band Neutrophils % Lymphocytes % (Manual) Atypical Lymphs % (Man) Monocytes % (Manual) Eosinophils % (Manual) Basophils % (Manual) Metamyelocytes % Myelocytes % Abs Neuts (Manual) Lymphocytes # (Manual) Atyp Lymphs # (Manual) Monocytes # (Manual) Eosinophils # (Manual) Basophils # (Manual) Metamyelocytes # Myelocytes # Smudge Cells Platelet Estimate Large Platelets Plt Morphology Comment RBC Morphology Polychromasia Hypochromasia Basophilic Stippling Microcytosis Macrocytosis Tear Drop Cells Ovalocytes Acanthocytes (Spur) Schistocytes Smear Tech's Comments Smear Path Review PT INR D-Dimer High Sensitivty Hep-Ind Thrombocytop Com VBG pH 7.46 H VBG pCO2 38 VBG pO2 56 VBG HCO3 27 H VBG O2 Saturation 86.0 VBG Base Excess 4.0 Sodium Potassium Chloride Carbon Dioxide Anion Gap BUN Creatinine Estim Creat Clear Calc Estimated GFR POC Glucose 218 H 250 H Random Glucose Fasting Glucose Estimat Average Glucose Hemoglobin A1c % Lactic Acid Calcium Phosphorus Magnesium Ferritin Total Bilirubin Direct Bilirubin AST ALT Alkaline Phosphatase Lactate Dehydrogenase Total Creatine Kinase Troponin I High Sens C-Reactive Protein B-Natriuretic Peptide Total Protein Albumin Procalcitonin Urine Color Urine Appearance Urine pH Ur Specific [place] Urine Protein Urine Glucose (UA) Urine Ketones Urine Blood Urine Nitrite Ur Leukocyte Esterase Urine RBC Urine WBC Ur Squamous Epith Cells Amorphous Sediment Urine Bacteria Hyaline Casts Urine Mucus Urine Osmolality Ur Random Sodium Ur Random Potassium Urine Creatinine Urine Microalbumin Microalb/Creat Ratio Nasal Screen MRSA (PCR) Nasal S. aureus Screen Nasal MRSA/S.aureus Interp Gastric Occult Blood Stool Occult Blood Vancomycin Trough Random Vancomycin Heparin Dep Plt Ab OD Hep-Induced Plt Ab [place] COVID-19 ([facility]) COVID-19 Clin Com Influenza Type A (PCR) Influenza Type B (PCR) L.pneumophila IgM Ab Ur L.pneumophila Ag Pneumocystis Source Pneumocyst jiroveci PCR RSV RNA Qual (PCR) SARS-CoV-2 RNA (RT-PCR) Blood Type Antibody Screen 05/11/21 05/11/21 05/11/21 20:22 20:23 20:33 WBC RBC Hgb Hct MCV MCH MCHC RDW Plt Count MPV Immature Gran % (Auto) Neut % (Auto) Lymph % (Auto) [place] % (Auto) Eos % (Auto) Baso % (Auto) Lymph # (Auto) [place] # (Auto) Eos # (Auto) Baso # (Auto) Abs Immat Gran (auto) Absolute Neuts (auto) Absolute Nucleated RBC Nucleated RBC % (auto) Neutrophils % (Manual) Band Neutrophils % Lymphocytes % (Manual) Atypical Lymphs % (Man) Monocytes % (Manual) Eosinophils % (Manual) Basophils % (Manual) Metamyelocytes % Myelocytes % Abs Neuts (Manual) Lymphocytes # (Manual) Atyp Lymphs # (Manual) Monocytes # (Manual) Eosinophils # (Manual) Basophils # (Manual) Metamyelocytes # Myelocytes # Smudge Cells Platelet Estimate Large Platelets Plt Morphology Comment RBC Morphology Polychromasia Hypochromasia Basophilic Stippling Microcytosis Macrocytosis Tear Drop Cells Ovalocytes Acanthocytes (Spur) Schistocytes Smear Tech's Comments Smear Path Review PT INR D-Dimer High Sensitivty 2379 Hep-Ind Thrombocytop Com VBG pH VBG pCO2 VBG pO2 VBG HCO3 VBG O2 Saturation VBG Base Excess Sodium Potassium Chloride Carbon Dioxide Anion Gap BUN Creatinine Estim Creat Clear Calc Estimated GFR POC Glucose 196 H Random Glucose Fasting Glucose Estimat Average Glucose Hemoglobin A1c % Lactic Acid Calcium Phosphorus Magnesium Ferritin 2848 H Total Bilirubin Direct Bilirubin AST ALT Alkaline Phosphatase Lactate Dehydrogenase Total Creatine Kinase Troponin I High Sens C-Reactive Protein 6.41 H B-Natriuretic Peptide Total Protein Albumin Procalcitonin Urine Color Urine Appearance Urine pH Ur Specific [place] Urine Protein Urine Glucose (UA) Urine Ketones Urine Blood Urine Nitrite Ur Leukocyte Esterase Urine RBC Urine WBC Ur Squamous Epith Cells Amorphous Sediment Urine Bacteria Hyaline Casts Urine Mucus Urine Osmolality Ur Random Sodium Ur Random Potassium Urine Creatinine Urine Microalbumin Microalb/Creat Ratio Nasal Screen MRSA (PCR) Nasal S. aureus Screen Nasal MRSA/S.aureus Interp Gastric Occult Blood Stool Occult Blood Vancomycin Trough Random Vancomycin Heparin Dep Plt Ab OD Hep-Induced Plt Ab [place] COVID-19 ([facility]) COVID-19 Clin Com Influenza Type A (PCR) Influenza Type B (PCR) L.pneumophila IgM Ab Ur L.pneumophila Ag Pneumocystis Source Pneumocyst jiroveci PCR RSV RNA Qual (PCR) SARS-CoV-2 RNA (RT-PCR) Blood Type Antibody Screen 05/12/21 05/12/21 05/12/21 05:41 05:44 05:44 WBC 12.8 H RBC 4.67 Hgb 13.2 L Hct 40.7 L MCV 87.2 MCH 28.3 MCHC 32.4 RDW 13.1 Plt Count 163 MPV 11.0 Immature Gran % (Auto) 0.5 H Neut % (Auto) 92.9 H Lymph % (Auto) 3.4 L [place] % (Auto) 3.0 Eos % (Auto) 0.1 Baso % (Auto) 0.1 Lymph # (Auto) 0.4 L [place] # (Auto) 0.4 Eos # (Auto) 0.0 Baso # (Auto) 0.0 Abs Immat Gran (auto) 0.07 H Absolute Neuts (auto) 11.9 H Absolute Nucleated RBC 0.000 Nucleated RBC % (auto) 0.0 Neutrophils % (Manual) Band Neutrophils % Lymphocytes % (Manual) Atypical Lymphs % (Man) Monocytes % (Manual) Eosinophils % (Manual) Basophils % (Manual) Metamyelocytes % Myelocytes % Abs Neuts (Manual) Lymphocytes # (Manual) Atyp Lymphs # (Manual) Monocytes # (Manual) Eosinophils # (Manual) Basophils # (Manual) Metamyelocytes # Myelocytes # Smudge Cells Platelet Estimate Large Platelets Plt Morphology Comment RBC Morphology Polychromasia Hypochromasia Basophilic Stippling Microcytosis Macrocytosis Tear Drop Cells Ovalocytes Acanthocytes (Spur) Schistocytes Smear Tech's Comments VERIFIED Smear Path Review PT INR D-Dimer High Sensitivty Hep-Ind Thrombocytop Com VBG pH 7.50 H VBG pCO2 43 VBG pO2 44 VBG HCO3 34 H VBG O2 Saturation 72.0 VBG Base Excess 10.3 Sodium 141 Potassium 5.3 H Chloride 102 Carbon Dioxide 28 Anion Gap 16 BUN 94 H Creatinine 1.40 Estim Creat Clear Calc 62.4 Estimated GFR 51 POC Glucose Random Glucose 98 D Fasting Glucose Estimat Average Glucose Hemoglobin A1c % Lactic Acid Calcium 8.9 Phosphorus 3.9 Magnesium 2.2 Ferritin Total Bilirubin Direct Bilirubin AST ALT Alkaline Phosphatase Lactate Dehydrogenase 482 H Total Creatine Kinase Troponin I High Sens C-Reactive Protein 5.00 H B-Natriuretic Peptide Total Protein Albumin Procalcitonin Urine Color Urine Appearance Urine pH Ur Specific [place] Urine Protein Urine Glucose (UA) Urine Ketones Urine Blood Urine Nitrite Ur Leukocyte Esterase Urine RBC Urine WBC Ur Squamous Epith Cells Amorphous Sediment Urine Bacteria Hyaline Casts Urine Mucus Urine Osmolality Ur Random Sodium Ur Random Potassium Urine Creatinine Urine Microalbumin Microalb/Creat Ratio Nasal Screen MRSA (PCR) Nasal S. aureus Screen Nasal MRSA/S.aureus Interp Gastric Occult Blood Stool Occult Blood Vancomycin Trough Random Vancomycin Heparin Dep Plt Ab OD Hep-Induced Plt Ab [place] COVID-19 ([facility]) COVID-19 Clin Com Influenza Type A (PCR) Influenza Type B (PCR) L.pneumophila IgM Ab Ur L.pneumophila Ag Pneumocystis Source Pneumocyst jiroveci PCR RSV RNA Qual (PCR) SARS-CoV-2 RNA (RT-PCR) Blood Type Antibody Screen 05/12/21 05/12/21 05/12/21 05:44 07:34 11:52 WBC RBC Hgb Hct MCV MCH MCHC RDW Plt Count MPV Immature Gran % (Auto) Neut % (Auto) Lymph % (Auto) [place] % (Auto) Eos % (Auto) Baso % (Auto) Lymph # (Auto) [place] # (Auto) Eos # (Auto) Baso # (Auto) Abs Immat Gran (auto) Absolute Neuts (auto) Absolute Nucleated RBC Nucleated RBC % (auto) Neutrophils % (Manual) Band Neutrophils % Lymphocytes % (Manual) Atypical Lymphs % (Man) Monocytes % (Manual) Eosinophils % (Manual) Basophils % (Manual) Metamyelocytes % Myelocytes % Abs Neuts (Manual) Lymphocytes # (Manual) Atyp Lymphs # (Manual) Monocytes # (Manual) Eosinophils # (Manual) Basophils # (Manual) Metamyelocytes # Myelocytes # Smudge Cells Platelet Estimate Large Platelets Plt Morphology Comment RBC Morphology Polychromasia Hypochromasia Basophilic Stippling Microcytosis Macrocytosis Tear Drop Cells Ovalocytes Acanthocytes (Spur) Schistocytes Smear Tech's Comments Smear Path Review PT INR D-Dimer High Sensitivty Hep-Ind Thrombocytop Com VBG pH VBG pCO2 VBG pO2 VBG HCO3 VBG O2 Saturation VBG Base Excess Sodium Potassium Chloride Carbon Dioxide Anion Gap BUN Creatinine Estim Creat Clear Calc Estimated GFR POC Glucose 116 H 109 Random Glucose Fasting Glucose Estimat Average Glucose Hemoglobin A1c % Lactic Acid Calcium Phosphorus Magnesium Ferritin Total Bilirubin Direct Bilirubin AST ALT Alkaline Phosphatase Lactate Dehydrogenase Total Creatine Kinase Troponin I High Sens C-Reactive Protein B-Natriuretic Peptide Total Protein Albumin 2.9 L D Procalcitonin Urine Color Urine Appearance Urine pH Ur Specific [place] Urine Protein Urine Glucose (UA) Urine Ketones Urine Blood Urine Nitrite Ur Leukocyte Esterase Urine RBC Urine WBC Ur Squamous Epith Cells Amorphous Sediment Urine Bacteria Hyaline Casts Urine Mucus Urine Osmolality Ur Random Sodium Ur Random Potassium Urine Creatinine Urine Microalbumin Microalb/Creat Ratio Nasal Screen MRSA (PCR) Nasal S. aureus Screen Nasal MRSA/S.aureus Interp Gastric Occult Blood Stool Occult Blood Vancomycin Trough Random Vancomycin Heparin Dep Plt Ab OD Hep-Induced Plt Ab [place] COVID-19 ([facility]) COVID-19 Clin Com Influenza Type A (PCR) Influenza Type B (PCR) L.pneumophila IgM Ab Ur L.pneumophila Ag Pneumocystis Source Pneumocyst jiroveci PCR RSV RNA Qual (PCR) SARS-CoV-2 RNA (RT-PCR) Blood Type Antibody Screen 05/12/21 05/12/21 05/12/21 17:02 20:06 20:06 WBC RBC Hgb Hct MCV MCH MCHC RDW Plt Count MPV Immature Gran % (Auto) Neut % (Auto) Lymph % (Auto) [place] % (Auto) Eos % (Auto) Baso % (Auto) Lymph # (Auto) [place] # (Auto) Eos # (Auto) Baso # (Auto) Abs Immat Gran (auto) Absolute Neuts (auto) Absolute Nucleated RBC Nucleated RBC % (auto) Neutrophils % (Manual) Band Neutrophils % Lymphocytes % (Manual) Atypical Lymphs % (Man) Monocytes % (Manual) Eosinophils % (Manual) Basophils % (Manual) Metamyelocytes % Myelocytes % Abs Neuts (Manual) Lymphocytes # (Manual) Atyp Lymphs # (Manual) Monocytes # (Manual) Eosinophils # (Manual) Basophils # (Manual) Metamyelocytes # Myelocytes # Smudge Cells Platelet Estimate Large Platelets Plt Morphology Comment RBC Morphology Polychromasia Hypochromasia Basophilic Stippling Microcytosis Macrocytosis Tear Drop Cells Ovalocytes Acanthocytes (Spur) Schistocytes Smear Tech's Comments Smear Path Review PT INR D-Dimer High Sensitivty 3008 Hep-Ind Thrombocytop Com VBG pH VBG pCO2 VBG pO2 VBG HCO3 VBG O2 Saturation VBG Base Excess Sodium Potassium Chloride Carbon Dioxide Anion Gap BUN Creatinine Estim Creat Clear Calc Estimated GFR POC Glucose 163 H Random Glucose Fasting Glucose Estimat Average Glucose Hemoglobin A1c % Lactic Acid Calcium Phosphorus Magnesium Ferritin 2869 H Total Bilirubin Direct Bilirubin AST ALT Alkaline Phosphatase Lactate Dehydrogenase Total Creatine Kinase Troponin I High Sens C-Reactive Protein B-Natriuretic Peptide Total Protein Albumin Procalcitonin Urine Color Urine Appearance Urine pH Ur Specific [place] Urine Protein Urine Glucose (UA) Urine Ketones Urine Blood Urine Nitrite Ur Leukocyte Esterase Urine RBC Urine WBC Ur Squamous Epith Cells Amorphous Sediment Urine Bacteria Hyaline Casts Urine Mucus Urine Osmolality Ur Random Sodium Ur Random Potassium Urine Creatinine Urine Microalbumin Microalb/Creat Ratio Nasal Screen MRSA (PCR) Nasal S. aureus Screen Nasal MRSA/S.aureus Interp Gastric Occult Blood Stool Occult Blood Vancomycin Trough Random Vancomycin Heparin Dep Plt Ab OD Hep-Induced Plt Ab [place] COVID-19 ([facility]) COVID-19 Clin Com Influenza Type A (PCR) Influenza Type B (PCR) L.pneumophila IgM Ab Ur L.pneumophila Ag Pneumocystis Source Pneumocyst jiroveci PCR RSV RNA Qual (PCR) SARS-CoV-2 RNA (RT-PCR) Blood Type Antibody Screen 05/12/21 05/13/21 05/13/21 20:40 04:39 05:45 WBC RBC Hgb Hct MCV MCH MCHC RDW Plt Count MPV Immature Gran % (Auto) Neut % (Auto) Lymph % (Auto) [place] % (Auto) Eos % (Auto) Baso % (Auto) Lymph # (Auto) [place] # (Auto) Eos # (Auto) Baso # (Auto) Abs Immat Gran (auto) Absolute Neuts (auto) Absolute Nucleated RBC Nucleated RBC % (auto) Neutrophils % (Manual) Band Neutrophils % Lymphocytes % (Manual) Atypical Lymphs % (Man) Monocytes % (Manual) Eosinophils % (Manual) Basophils % (Manual) Metamyelocytes % Myelocytes % Abs Neuts (Manual) Lymphocytes # (Manual) Atyp Lymphs # (Manual) Monocytes # (Manual) Eosinophils # (Manual) Basophils # (Manual) Metamyelocytes # Myelocytes # Smudge Cells Platelet Estimate Large Platelets Plt Morphology Comment RBC Morphology Polychromasia Hypochromasia Basophilic Stippling Microcytosis Macrocytosis Tear Drop Cells Ovalocytes Acanthocytes (Spur) Schistocytes Smear Tech's Comments Smear Path Review PT INR D-Dimer High Sensitivty Hep-Ind Thrombocytop Com VBG pH 7.50 H VBG pCO2 54 VBG pO2 42 VBG HCO3 42 H VBG O2 Saturation 70.0 VBG Base Excess 16.4 Sodium Potassium Chloride Carbon Dioxide Anion Gap BUN Creatinine Estim Creat Clear Calc Estimated GFR POC Glucose 134 H Random Glucose Fasting Glucose Estimat Average Glucose Hemoglobin A1c % Lactic Acid Calcium Phosphorus Magnesium Ferritin Total Bilirubin Direct Bilirubin AST ALT Alkaline Phosphatase Lactate Dehydrogenase Total Creatine Kinase Troponin I High Sens C-Reactive Protein B-Natriuretic Peptide Total Protein Albumin Procalcitonin Urine Color YELLOW Urine Appearance CLOUDY Urine pH 7.0 Ur Specific [place] 1.015 Urine Protein 2+ H Urine Glucose (UA) NEG Urine Ketones NEG Urine Blood 2+ H Urine Nitrite NEG Ur Leukocyte Esterase 3+ H Urine RBC 5-9 H Urine WBC 30-49 H Ur Squamous Epith Cells 1+ Amorphous Sediment Urine Bacteria 2+ Hyaline Casts Urine Mucus 2+ Urine Osmolality Ur Random Sodium Ur Random Potassium Urine Creatinine Urine Microalbumin Microalb/Creat Ratio Nasal Screen MRSA (PCR) Nasal S. aureus Screen Nasal MRSA/S.aureus Interp Gastric Occult Blood Stool Occult Blood Vancomycin Trough Random Vancomycin Heparin Dep Plt Ab OD Hep-Induced Plt Ab [place] COVID-19 ([facility]) COVID-19 Clin Com Influenza Type A (PCR) Influenza Type B (PCR) L.pneumophila IgM Ab Ur L.pneumophila Ag Pneumocystis Source Pneumocyst jiroveci PCR RSV RNA Qual (PCR) SARS-CoV-2 RNA (RT-PCR) Blood Type Antibody Screen 05/13/21 05/13/21 05/13/21 06:02 06:02 06:02 WBC 12.5 H RBC 4.50 L Hgb 12.7 L Hct 40.1 L MCV 89.1 MCH 28.2 MCHC 31.7 RDW 12.9 Plt Count 143 L MPV 11.5 Immature Gran % (Auto) 0.5 H Neut % (Auto) 88.3 H Lymph % (Auto) 8.2 L [place] % (Auto) 2.7 Eos % (Auto) 0.2 Baso % (Auto) 0.1 Lymph # (Auto) 1.0 L [place] # (Auto) 0.3 Eos # (Auto) 0.0 Baso # (Auto) 0.0 Abs Immat Gran (auto) 0.06 H Absolute Neuts (auto) 11.0 H Absolute Nucleated RBC 0.000 Nucleated RBC % (auto) 0.0 Neutrophils % (Manual) Band Neutrophils % Lymphocytes % (Manual) Atypical Lymphs % (Man) Monocytes % (Manual) Eosinophils % (Manual) Basophils % (Manual) Metamyelocytes % Myelocytes % Abs Neuts (Manual) Lymphocytes # (Manual) Atyp Lymphs # (Manual) Monocytes # (Manual) Eosinophils # (Manual) Basophils # (Manual) Metamyelocytes # Myelocytes # Smudge Cells Platelet Estimate Large Platelets Plt Morphology Comment RBC Morphology Polychromasia Hypochromasia Basophilic Stippling Microcytosis Macrocytosis Tear Drop Cells Ovalocytes Acanthocytes (Spur) Schistocytes Smear Tech's Comments Smear Path Review PT INR D-Dimer High Sensitivty Hep-Ind Thrombocytop Com VBG pH VBG pCO2 VBG pO2 VBG HCO3 VBG O2 Saturation VBG Base Excess Sodium 144 Potassium 4.9 Chloride 98 Carbon Dioxide 34 H Anion Gap 17 BUN 79 H Creatinine 1.41 H Estim Creat Clear Calc 62.2 Estimated GFR 50 POC Glucose Random Glucose 85 Fasting Glucose Estimat Average Glucose Hemoglobin A1c % Lactic Acid Calcium 8.8 Phosphorus 4.1 Magnesium 2.1 Ferritin Total Bilirubin Direct Bilirubin AST ALT Alkaline Phosphatase Lactate Dehydrogenase 546 H Total Creatine Kinase Troponin I High Sens C-Reactive Protein 11.54 H B-Natriuretic Peptide 523 H Total Protein Albumin 3.3 L Procalcitonin Urine Color Urine Appearance Urine pH Ur Specific [place] Urine Protein Urine Glucose (UA) Urine Ketones Urine Blood Urine Nitrite Ur Leukocyte Esterase Urine RBC Urine WBC Ur Squamous Epith Cells Amorphous Sediment Urine Bacteria Hyaline Casts Urine Mucus Urine Osmolality Ur Random Sodium Ur Random Potassium Urine Creatinine Urine Microalbumin Microalb/Creat Ratio Nasal Screen MRSA (PCR) Nasal S. aureus Screen Nasal MRSA/S.aureus Interp Gastric Occult Blood Stool Occult Blood Vancomycin Trough Random Vancomycin Heparin Dep Plt Ab OD Hep-Induced Plt Ab [place] COVID-19 ([facility]) COVID-19 Clin Com Influenza Type A (PCR) Influenza Type B (PCR) L.pneumophila IgM Ab Ur L.pneumophila Ag Pneumocystis Source Pneumocyst jiroveci PCR RSV RNA Qual (PCR) SARS-CoV-2 RNA (RT-PCR) Blood Type Antibody Screen 05/13/21 05/13/21 05/13/21 07:26 13:50 16:26 WBC RBC Hgb Hct MCV MCH MCHC RDW Plt Count MPV Immature Gran % (Auto) Neut % (Auto) Lymph % (Auto) [place] % (Auto) Eos % (Auto) Baso % (Auto) Lymph # (Auto) [place] # (Auto) Eos # (Auto) Baso # (Auto) Abs Immat Gran (auto) Absolute Neuts (auto) Absolute Nucleated RBC Nucleated RBC % (auto) Neutrophils % (Manual) Band Neutrophils % Lymphocytes % (Manual) Atypical Lymphs % (Man) Monocytes % (Manual) Eosinophils % (Manual) Basophils % (Manual) Metamyelocytes % Myelocytes % Abs Neuts (Manual) Lymphocytes # (Manual) Atyp Lymphs # (Manual) Monocytes # (Manual) Eosinophils # (Manual) Basophils # (Manual) Metamyelocytes # Myelocytes # Smudge Cells Platelet Estimate Large Platelets Plt Morphology Comment RBC Morphology Polychromasia Hypochromasia Basophilic Stippling Microcytosis Macrocytosis Tear Drop Cells Ovalocytes Acanthocytes (Spur) Schistocytes Smear Tech's Comments Smear Path Review PT INR D-Dimer High Sensitivty Hep-Ind Thrombocytop Com VBG pH VBG pCO2 VBG pO2 VBG HCO3 VBG O2 Saturation VBG Base Excess Sodium Potassium Chloride Carbon Dioxide Anion Gap BUN Creatinine Estim Creat Clear Calc Estimated GFR POC Glucose 112 135 H 159 H Random Glucose Fasting Glucose Estimat Average Glucose Hemoglobin A1c % Lactic Acid Calcium Phosphorus Magnesium Ferritin Total Bilirubin Direct Bilirubin AST ALT Alkaline Phosphatase Lactate Dehydrogenase Total Creatine Kinase Troponin I High Sens C-Reactive Protein B-Natriuretic Peptide Total Protein Albumin Procalcitonin Urine Color Urine Appearance Urine pH Ur Specific [place] Urine Protein Urine Glucose (UA) Urine Ketones Urine Blood Urine Nitrite Ur Leukocyte Esterase Urine RBC Urine WBC Ur Squamous Epith Cells Amorphous Sediment Urine Bacteria Hyaline Casts Urine Mucus Urine Osmolality Ur Random Sodium Ur Random Potassium Urine Creatinine Urine Microalbumin Microalb/Creat Ratio Nasal Screen MRSA (PCR) Nasal S. aureus Screen Nasal MRSA/S.aureus Interp Gastric Occult Blood Stool Occult Blood Vancomycin Trough Random Vancomycin Heparin Dep Plt Ab OD Hep-Induced Plt Ab [place] COVID-19 ([facility]) COVID-19 Clin Com Influenza Type A (PCR) Influenza Type B (PCR) L.pneumophila IgM Ab Ur L.pneumophila Ag Pneumocystis Source Pneumocyst jiroveci PCR RSV RNA Qual (PCR) SARS-CoV-2 RNA (RT-PCR) Blood Type Antibody Screen 05/13/21 05/13/21 05/13/21 20:27 20:27 20:28 WBC RBC Hgb Hct MCV MCH MCHC RDW Plt Count MPV Immature Gran % (Auto) Neut % (Auto) Lymph % (Auto) [place] % (Auto) Eos % (Auto) Baso % (Auto) Lymph # (Auto) [place] # (Auto) Eos # (Auto) Baso # (Auto) Abs Immat Gran (auto) Absolute Neuts (auto) Absolute Nucleated RBC Nucleated RBC % (auto) Neutrophils % (Manual) Band Neutrophils % Lymphocytes % (Manual) Atypical Lymphs % (Man) Monocytes % (Manual) Eosinophils % (Manual) Basophils % (Manual) Metamyelocytes % Myelocytes % Abs Neuts (Manual) Lymphocytes # (Manual) Atyp Lymphs # (Manual) Monocytes # (Manual) Eosinophils # (Manual) Basophils # (Manual) Metamyelocytes # Myelocytes # Smudge Cells Platelet Estimate Large Platelets Plt Morphology Comment RBC Morphology Polychromasia Hypochromasia Basophilic Stippling Microcytosis Macrocytosis Tear Drop Cells Ovalocytes Acanthocytes (Spur) Schistocytes Smear Tech's Comments Smear Path Review PT INR D-Dimer High Sensitivty 2165 Hep-Ind Thrombocytop Com VBG pH VBG pCO2 VBG pO2 VBG HCO3 VBG O2 Saturation VBG Base Excess Sodium Potassium Chloride Carbon Dioxide Anion Gap BUN Creatinine Estim Creat Clear Calc Estimated GFR POC Glucose 131 H Random Glucose Fasting Glucose Estimat Average Glucose Hemoglobin A1c % Lactic Acid Calcium Phosphorus Magnesium Ferritin 2689 H Total Bilirubin Direct Bilirubin AST ALT Alkaline Phosphatase Lactate Dehydrogenase Total Creatine Kinase Troponin I High Sens C-Reactive Protein B-Natriuretic Peptide Total Protein Albumin Procalcitonin Urine Color Urine Appearance Urine pH Ur Specific [place] Urine Protein Urine Glucose (UA) Urine Ketones Urine Blood Urine Nitrite Ur Leukocyte Esterase Urine RBC Urine WBC Ur Squamous Epith Cells Amorphous Sediment Urine Bacteria Hyaline Casts Urine Mucus Urine Osmolality Ur Random Sodium Ur Random Potassium Urine Creatinine Urine Microalbumin Microalb/Creat Ratio Nasal Screen MRSA (PCR) Nasal S. aureus Screen Nasal MRSA/S.aureus Interp Gastric Occult Blood Stool Occult Blood Vancomycin Trough Random Vancomycin Heparin Dep Plt Ab OD Hep-Induced Plt Ab [place] COVID-19 ([facility]) COVID-19 Clin Com Influenza Type A (PCR) Influenza Type B (PCR) L.pneumophila IgM Ab Ur L.pneumophila Ag Pneumocystis Source Pneumocyst jiroveci PCR RSV RNA Qual (PCR) SARS-CoV-2 RNA (RT-PCR) Blood Type Antibody Screen 05/13/21 05/14/21 05/14/21 20:37 01:20 05:22 WBC 10.3 RBC 3.73 L Hgb 10.7 L Hct 33.9 L MCV 90.9 MCH 28.7 MCHC 31.6 RDW 13.1 Plt Count 104 L D MPV 11.8 Immature Gran % (Auto) 0.7 H Neut % (Auto) 91.4 H Lymph % (Auto) 4.0 L [place] % (Auto) 3.5 Eos % (Auto) 0.3 Baso % (Auto) 0.1 Lymph # (Auto) 0.4 L [place] # (Auto) 0.4 Eos # (Auto) 0.0 Baso # (Auto) 0.0 Abs Immat Gran (auto) 0.07 H Absolute Neuts (auto) 9.4 H Absolute Nucleated RBC 0.000 Nucleated RBC % (auto) 0.0 Neutrophils % (Manual) Band Neutrophils % Lymphocytes % (Manual) Atypical Lymphs % (Man) Monocytes % (Manual) Eosinophils % (Manual) Basophils % (Manual) Metamyelocytes % Myelocytes % Abs Neuts (Manual) Lymphocytes # (Manual) Atyp Lymphs # (Manual) Monocytes # (Manual) Eosinophils # (Manual) Basophils # (Manual) Metamyelocytes # Myelocytes # Smudge Cells Platelet Estimate Large Platelets Plt Morphology Comment RBC Morphology Polychromasia Hypochromasia Basophilic Stippling Microcytosis Macrocytosis Tear Drop Cells Ovalocytes Acanthocytes (Spur) Schistocytes Smear Tech's Comments VERIFIED Smear Path Review PT INR D-Dimer High Sensitivty Hep-Ind Thrombocytop Com VBG pH 7.46 H VBG pCO2 55 VBG pO2 65 VBG HCO3 39 H VBG O2 Saturation 90.0 VBG Base Excess 13.8 Sodium Potassium Chloride Carbon Dioxide Anion Gap BUN Creatinine Estim Creat Clear Calc Estimated GFR POC Glucose 116 H Random Glucose Fasting Glucose Estimat Average Glucose Hemoglobin A1c % Lactic Acid Calcium Phosphorus Magnesium Ferritin Total Bilirubin Direct Bilirubin AST ALT Alkaline Phosphatase Lactate Dehydrogenase Total Creatine Kinase Troponin I High Sens C-Reactive Protein B-Natriuretic Peptide Total Protein Albumin Procalcitonin Urine Color Urine Appearance Urine pH Ur Specific [place] Urine Protein Urine Glucose (UA) Urine Ketones Urine Blood Urine Nitrite Ur Leukocyte Esterase Urine RBC Urine WBC Ur Squamous Epith Cells Amorphous Sediment Urine Bacteria Hyaline Casts Urine Mucus Urine Osmolality Ur Random Sodium Ur Random Potassium Urine Creatinine Urine Microalbumin Microalb/Creat Ratio Nasal Screen MRSA (PCR) Nasal S. aureus Screen Nasal MRSA/S.aureus Interp Gastric Occult Blood Stool Occult Blood Vancomycin Trough Random Vancomycin Heparin Dep Plt Ab OD Hep-Induced Plt Ab [place] COVID-19 ([facility]) COVID-19 Clin Com Influenza Type A (PCR) Influenza Type B (PCR) L.pneumophila IgM Ab Ur L.pneumophila Ag Pneumocystis Source Pneumocyst jiroveci PCR RSV RNA Qual (PCR) SARS-CoV-2 RNA (RT-PCR) Blood Type Antibody Screen 05/14/21 05/14/21 05/14/21 05:22 05:22 05:27 WBC RBC Hgb Hct MCV MCH MCHC RDW Plt Count MPV Immature Gran % (Auto) Neut % (Auto) Lymph % (Auto) [place] % (Auto) Eos % (Auto) Baso % (Auto) Lymph # (Auto) [place] # (Auto) Eos # (Auto) Baso # (Auto) Abs Immat Gran (auto) Absolute Neuts (auto) Absolute Nucleated RBC Nucleated RBC % (auto) Neutrophils % (Manual) Band Neutrophils % Lymphocytes % (Manual) Atypical Lymphs % (Man) Monocytes % (Manual) Eosinophils % (Manual) Basophils % (Manual) Metamyelocytes % Myelocytes % Abs Neuts (Manual) Lymphocytes # (Manual) Atyp Lymphs # (Manual) Monocytes # (Manual) Eosinophils # (Manual) Basophils # (Manual) Metamyelocytes # Myelocytes # Smudge Cells Platelet Estimate Large Platelets Plt Morphology Comment RBC Morphology Polychromasia Hypochromasia Basophilic Stippling Microcytosis Macrocytosis Tear Drop Cells Ovalocytes Acanthocytes (Spur) Schistocytes Smear Tech's Comments Smear Path Review PT INR D-Dimer High Sensitivty Hep-Ind Thrombocytop Com VBG pH 7.51 H VBG pCO2 53 VBG pO2 58 VBG HCO3 42 H VBG O2 Saturation 88.0 VBG Base Excess 17.4 Sodium 143 Potassium 4.9 Chloride 102 Carbon Dioxide 33 H Anion Gap 13 BUN 78 H Creatinine 1.32 Estim Creat Clear Calc 65.5 Estimated GFR 54 POC Glucose Random Glucose 119 H D Fasting Glucose Estimat Average Glucose Hemoglobin A1c % Lactic Acid Calcium 8.6 Phosphorus 4.1 Magnesium 2.2 Ferritin Total Bilirubin Direct Bilirubin AST ALT Alkaline Phosphatase Lactate Dehydrogenase 368 H Total Creatine Kinase Troponin I High Sens C-Reactive Protein 11.08 H B-Natriuretic Peptide Total Protein Albumin 2.3 L D Procalcitonin Urine Color Urine Appearance Urine pH Ur Specific [place] Urine Protein Urine Glucose (UA) Urine Ketones Urine Blood Urine Nitrite Ur Leukocyte Esterase Urine RBC Urine WBC Ur Squamous Epith Cells Amorphous Sediment Urine Bacteria Hyaline Casts Urine Mucus Urine Osmolality Ur Random Sodium Ur Random Potassium Urine Creatinine Urine Microalbumin Microalb/Creat Ratio Nasal Screen MRSA (PCR) Nasal S. aureus Screen Nasal MRSA/S.aureus Interp Gastric Occult Blood Stool Occult Blood Vancomycin Trough Random Vancomycin Heparin Dep Plt Ab OD Hep-Induced Plt Ab [place] COVID-19 ([facility]) COVID-19 Clin Com Influenza Type A (PCR) Influenza Type B (PCR) L.pneumophila IgM Ab Ur L.pneumophila Ag Pneumocystis Source Pneumocyst jiroveci PCR RSV RNA Qual (PCR) SARS-CoV-2 RNA (RT-PCR) Blood Type Antibody Screen 05/14/21 05/14/21 05/14/21 05:29 08:16 12:10 WBC RBC Hgb Hct MCV MCH MCHC RDW Plt Count MPV Immature Gran % (Auto) Neut % (Auto) Lymph % (Auto) [place] % (Auto) Eos % (Auto) Baso % (Auto) Lymph # (Auto) [place] # (Auto) Eos # (Auto) Baso # (Auto) Abs Immat Gran (auto) Absolute Neuts (auto) Absolute Nucleated RBC Nucleated RBC % (auto) Neutrophils % (Manual) Band Neutrophils % Lymphocytes % (Manual) Atypical Lymphs % (Man) Monocytes % (Manual) Eosinophils % (Manual) Basophils % (Manual) Metamyelocytes % Myelocytes % Abs Neuts (Manual) Lymphocytes # (Manual) Atyp Lymphs # (Manual) Monocytes # (Manual) Eosinophils # (Manual) Basophils # (Manual) Metamyelocytes # Myelocytes # Smudge Cells Platelet Estimate Large Platelets Plt Morphology Comment RBC Morphology Polychromasia Hypochromasia Basophilic Stippling Microcytosis Macrocytosis Tear Drop Cells Ovalocytes Acanthocytes (Spur) Schistocytes Smear Tech's Comments Smear Path Review PT INR D-Dimer High Sensitivty Hep-Ind Thrombocytop Com See Below VBG pH VBG pCO2 VBG pO2 VBG HCO3 VBG O2 Saturation VBG Base Excess Sodium Potassium Chloride Carbon Dioxide Anion Gap BUN Creatinine Estim Creat Clear Calc Estimated GFR POC Glucose 110 176 H Random Glucose Fasting Glucose Estimat Average Glucose Hemoglobin A1c % Lactic Acid Calcium Phosphorus Magnesium Ferritin Total Bilirubin Direct Bilirubin AST ALT Alkaline Phosphatase Lactate Dehydrogenase Total Creatine Kinase Troponin I High Sens C-Reactive Protein B-Natriuretic Peptide Total Protein Albumin Procalcitonin Urine Color Urine Appearance Urine pH Ur Specific [place] Urine Protein Urine Glucose (UA) Urine Ketones Urine Blood Urine Nitrite Ur Leukocyte Esterase Urine RBC Urine WBC Ur Squamous Epith Cells Amorphous Sediment Urine Bacteria Hyaline Casts Urine Mucus Urine Osmolality Ur Random Sodium Ur Random Potassium Urine Creatinine Urine Microalbumin Microalb/Creat Ratio Nasal Screen MRSA (PCR) Nasal S. aureus Screen Nasal MRSA/S.aureus Interp Gastric Occult Blood Stool Occult Blood Vancomycin Trough Random Vancomycin Heparin Dep Plt Ab OD 0.084 Hep-Induced Plt Ab [place] NEGATIVE COVID-19 ([facility]) COVID-19 Clin Com Influenza Type A (PCR) Influenza Type B (PCR) L.pneumophila IgM Ab Ur L.pneumophila Ag Pneumocystis Source Pneumocyst jiroveci PCR RSV RNA Qual (PCR) SARS-CoV-2 RNA (RT-PCR) Blood Type Antibody Screen 05/14/21 05/14/21 05/14/21 17:36 20:09 20:09 WBC RBC Hgb Hct MCV MCH MCHC RDW Plt Count MPV Immature Gran % (Auto) Neut % (Auto) Lymph % (Auto) [place] % (Auto) Eos % (Auto) Baso % (Auto) Lymph # (Auto) [place] # (Auto) Eos # (Auto) Baso # (Auto) Abs Immat Gran (auto) Absolute Neuts (auto) Absolute Nucleated RBC Nucleated RBC % (auto) Neutrophils % (Manual) Band Neutrophils % Lymphocytes % (Manual) Atypical Lymphs % (Man) Monocytes % (Manual) Eosinophils % (Manual) Basophils % (Manual) Metamyelocytes % Myelocytes % Abs Neuts (Manual) Lymphocytes # (Manual) Atyp Lymphs # (Manual) Monocytes # (Manual) Eosinophils # (Manual) Basophils # (Manual) Metamyelocytes # Myelocytes # Smudge Cells Platelet Estimate Large Platelets Plt Morphology Comment RBC Morphology Polychromasia Hypochromasia Basophilic Stippling Microcytosis Macrocytosis Tear Drop Cells Ovalocytes Acanthocytes (Spur) Schistocytes Smear Tech's Comments Smear Path Review PT INR D-Dimer High Sensitivty 1855 Hep-Ind Thrombocytop Com VBG pH VBG pCO2 VBG pO2 VBG HCO3 VBG O2 Saturation VBG Base Excess Sodium Potassium Chloride Carbon Dioxide Anion Gap BUN Creatinine Estim Creat Clear Calc Estimated GFR POC Glucose 206 H Random Glucose Fasting Glucose Estimat Average Glucose Hemoglobin A1c % Lactic Acid Calcium Phosphorus Magnesium Ferritin 2320 H Total Bilirubin Direct Bilirubin AST ALT Alkaline Phosphatase Lactate Dehydrogenase Total Creatine Kinase Troponin I High Sens C-Reactive Protein B-Natriuretic Peptide Total Protein Albumin Procalcitonin Urine Color Urine Appearance Urine pH Ur Specific [place] Urine Protein Urine Glucose (UA) Urine Ketones Urine Blood Urine Nitrite Ur Leukocyte Esterase Urine RBC Urine WBC Ur Squamous Epith Cells Amorphous Sediment Urine Bacteria Hyaline Casts Urine Mucus Urine Osmolality Ur Random Sodium Ur Random Potassium Urine Creatinine Urine Microalbumin Microalb/Creat Ratio Nasal Screen MRSA (PCR) Nasal S. aureus Screen Nasal MRSA/S.aureus Interp Gastric Occult Blood Stool Occult Blood Vancomycin Trough Random Vancomycin Heparin Dep Plt Ab OD Hep-Induced Plt Ab [place] COVID-19 ([facility]) COVID-19 Clin Com Influenza Type A (PCR) Influenza Type B (PCR) L.pneumophila IgM Ab Ur L.pneumophila Ag Pneumocystis Source Pneumocyst jiroveci PCR RSV RNA Qual (PCR) SARS-CoV-2 RNA (RT-PCR) Blood Type Antibody Screen 05/14/21 05/15/21 05/15/21 21:05 05:07 05:07 WBC 14.8 H RBC 4.10 L Hgb 11.7 L Hct 37.5 L MCV 91.5 MCH 28.5 MCHC 31.2 RDW 13.2 Plt Count 135 L D MPV 11.9 Immature Gran % (Auto) 1.4 H Neut % (Auto) 89.9 H Lymph % (Auto) 3.6 L [place] % (Auto) 4.5 Eos % (Auto) 0.5 Baso % (Auto) 0.1 Lymph # (Auto) 0.5 L [place] # (Auto) 0.7 Eos # (Auto) 0.1 Baso # (Auto) 0.0 Abs Immat Gran (auto) 0.20 H Absolute Neuts (auto) 13.3 H Absolute Nucleated RBC 0.000 Nucleated RBC % (auto) 0.0 Neutrophils % (Manual) Band Neutrophils % Lymphocytes % (Manual) Atypical Lymphs % (Man) Monocytes % (Manual) Eosinophils % (Manual) Basophils % (Manual) Metamyelocytes % Myelocytes % Abs Neuts (Manual) Lymphocytes # (Manual) Atyp Lymphs # (Manual) Monocytes # (Manual) Eosinophils # (Manual) Basophils # (Manual) Metamyelocytes # Myelocytes # Smudge Cells Platelet Estimate Large Platelets Plt Morphology Comment RBC Morphology Polychromasia Hypochromasia Basophilic Stippling Microcytosis Macrocytosis Tear Drop Cells Ovalocytes Acanthocytes (Spur) Schistocytes Smear Tech's Comments Smear Path Review PT INR D-Dimer High Sensitivty Hep-Ind Thrombocytop Com VBG pH VBG pCO2 VBG pO2 VBG HCO3 VBG O2 Saturation VBG Base Excess Sodium 141 Potassium 5.7 H Chloride 100 Carbon Dioxide 32 H Anion Gap 15 BUN 80 H Creatinine 1.72 H Estim Creat Clear Calc 51.3 Estimated GFR 40 POC Glucose 234 H Random Glucose 257 H D Fasting Glucose Estimat Average Glucose Hemoglobin A1c % Lactic Acid Calcium 8.8 Phosphorus 4.1 Magnesium 2.2 Ferritin Total Bilirubin Direct Bilirubin AST ALT Alkaline Phosphatase Lactate Dehydrogenase 436 H Total Creatine Kinase Troponin I High Sens C-Reactive Protein B-Natriuretic Peptide Total Protein Albumin 3.1 L D Procalcitonin Urine Color Urine Appearance Urine pH Ur Specific [place] Urine Protein Urine Glucose (UA) Urine Ketones Urine Blood Urine Nitrite Ur Leukocyte Esterase Urine RBC Urine WBC Ur Squamous Epith Cells Amorphous Sediment Urine Bacteria Hyaline Casts Urine Mucus Urine Osmolality Ur Random Sodium Ur Random Potassium Urine Creatinine Urine Microalbumin Microalb/Creat Ratio Nasal Screen MRSA (PCR) Nasal S. aureus Screen Nasal MRSA/S.aureus Interp Gastric Occult Blood Stool Occult Blood Vancomycin Trough Random Vancomycin Heparin Dep Plt Ab OD Hep-Induced Plt Ab [place] COVID-19 ([facility]) COVID-19 Clin Com Influenza Type A (PCR) Influenza Type B (PCR) L.pneumophila IgM Ab Ur L.pneumophila Ag Pneumocystis Source Pneumocyst jiroveci PCR RSV RNA Qual (PCR) SARS-CoV-2 RNA (RT-PCR) Blood Type Antibody Screen 05/15/21 05/15/21 05/15/21 05:07 05:07 05:17 WBC RBC Hgb Hct MCV MCH MCHC RDW Plt Count MPV Immature Gran % (Auto) Neut % (Auto) Lymph % (Auto) [place] % (Auto) Eos % (Auto) Baso % (Auto) Lymph # (Auto) [place] # (Auto) Eos # (Auto) Baso # (Auto) Abs Immat Gran (auto) Absolute Neuts (auto) Absolute Nucleated RBC Nucleated RBC % (auto) Neutrophils % (Manual) Band Neutrophils % Lymphocytes % (Manual) Atypical Lymphs % (Man) Monocytes % (Manual) Eosinophils % (Manual) Basophils % (Manual) Metamyelocytes % Myelocytes % Abs Neuts (Manual) Lymphocytes # (Manual) Atyp Lymphs # (Manual) Monocytes # (Manual) Eosinophils # (Manual) Basophils # (Manual) Metamyelocytes # Myelocytes # Smudge Cells Platelet Estimate Large Platelets Plt Morphology Comment RBC Morphology Polychromasia Hypochromasia Basophilic Stippling Microcytosis Macrocytosis Tear Drop Cells Ovalocytes Acanthocytes (Spur) Schistocytes Smear Tech's Comments Smear Path Review PT INR D-Dimer High Sensitivty Hep-Ind Thrombocytop Com VBG pH 7.42 VBG pCO2 55 VBG pO2 58 VBG HCO3 36 H VBG O2 Saturation 86.0 VBG Base Excess 10.6 Sodium Potassium Chloride Carbon Dioxide Anion Gap BUN Creatinine Estim Creat Clear Calc Estimated GFR POC Glucose Random Glucose Fasting Glucose Estimat Average Glucose Hemoglobin A1c % Lactic Acid Calcium Phosphorus Magnesium Ferritin Total Bilirubin Direct Bilirubin AST ALT Alkaline Phosphatase Lactate Dehydrogenase Total Creatine Kinase Troponin I High Sens 149.4 H* C-Reactive Protein B-Natriuretic Peptide Total Protein Albumin Cancelled Procalcitonin Urine Color Urine Appearance Urine pH Ur Specific [place] Urine Protein Urine Glucose (UA) Urine Ketones Urine Blood Urine Nitrite Ur Leukocyte Esterase Urine RBC Urine WBC Ur Squamous Epith Cells Amorphous Sediment Urine Bacteria Hyaline Casts Urine Mucus Urine Osmolality Ur Random Sodium Ur Random Potassium Urine Creatinine Urine Microalbumin Microalb/Creat Ratio Nasal Screen MRSA (PCR) Nasal S. aureus Screen Nasal MRSA/S.aureus Interp Gastric Occult Blood Stool Occult Blood Vancomycin Trough Random Vancomycin Heparin Dep Plt Ab OD Hep-Induced Plt Ab [place] COVID-19 ([facility]) COVID-19 Clin Com Influenza Type A (PCR) Influenza Type B (PCR) L.pneumophila IgM Ab Ur L.pneumophila Ag Pneumocystis Source Pneumocyst jiroveci PCR RSV RNA Qual (PCR) SARS-CoV-2 RNA (RT-PCR) Blood Type Antibody Screen 05/15/21 05/15/21 05/15/21 05:59 11:45 12:26 WBC RBC Hgb Hct MCV MCH MCHC RDW Plt Count MPV Immature Gran % (Auto) Neut % (Auto) Lymph % (Auto) [place] % (Auto) Eos % (Auto) Baso % (Auto) Lymph # (Auto) [place] # (Auto) Eos # (Auto) Baso # (Auto) Abs Immat Gran (auto) Absolute Neuts (auto) Absolute Nucleated RBC Nucleated RBC % (auto) Neutrophils % (Manual) Band Neutrophils % Lymphocytes % (Manual) Atypical Lymphs % (Man) Monocytes % (Manual) Eosinophils % (Manual) Basophils % (Manual) Metamyelocytes % Myelocytes % Abs Neuts (Manual) Lymphocytes # (Manual) Atyp Lymphs # (Manual) Monocytes # (Manual) Eosinophils # (Manual) Basophils # (Manual) Metamyelocytes # Myelocytes # Smudge Cells Platelet Estimate Large Platelets Plt Morphology Comment RBC Morphology Polychromasia Hypochromasia Basophilic Stippling Microcytosis Macrocytosis Tear Drop Cells Ovalocytes Acanthocytes (Spur) Schistocytes Smear Tech's Comments Smear Path Review PT INR D-Dimer High Sensitivty Hep-Ind Thrombocytop Com VBG pH VBG pCO2 VBG pO2 VBG HCO3 VBG O2 Saturation VBG Base Excess Sodium 141 Potassium 5.7 H Chloride 101 Carbon Dioxide 28 Anion Gap 18 BUN 84 H Creatinine 2.06 H Estim Creat Clear Calc 42.8 Estimated GFR 32 POC Glucose 241 H 237 H Random Glucose 251 H Fasting Glucose Estimat Average Glucose Hemoglobin A1c % Lactic Acid Calcium 8.8 Phosphorus Magnesium Ferritin Total Bilirubin Direct Bilirubin AST ALT Alkaline Phosphatase Lactate Dehydrogenase Total Creatine Kinase Troponin I High Sens C-Reactive Protein B-Natriuretic Peptide Total Protein Albumin Procalcitonin Urine Color Urine Appearance Urine pH Ur Specific [place] Urine Protein Urine Glucose (UA) Urine Ketones Urine Blood Urine Nitrite Ur Leukocyte Esterase Urine RBC Urine WBC Ur Squamous Epith Cells Amorphous Sediment Urine Bacteria Hyaline Casts Urine Mucus Urine Osmolality Ur Random Sodium Ur Random Potassium Urine Creatinine Urine Microalbumin Microalb/Creat Ratio Nasal Screen MRSA (PCR) Nasal S. aureus Screen Nasal MRSA/S.aureus Interp Gastric Occult Blood Stool Occult Blood Vancomycin Trough Random Vancomycin Heparin Dep Plt Ab OD Hep-Induced Plt Ab [place] COVID-19 ([facility]) COVID-19 Clin Com Influenza Type A (PCR) Influenza Type B (PCR) L.pneumophila IgM Ab Ur L.pneumophila Ag Pneumocystis Source Pneumocyst jiroveci PCR RSV RNA Qual (PCR) SARS-CoV-2 RNA (RT-PCR) Blood Type Antibody Screen 05/15/21 05/15/21 05/16/21 17:51 17:59 00:13 WBC RBC Hgb Hct MCV MCH MCHC RDW Plt Count MPV Immature Gran % (Auto) Neut % (Auto) Lymph % (Auto) [place] % (Auto) Eos % (Auto) Baso % (Auto) Lymph # (Auto) [place] # (Auto) Eos # (Auto) Baso # (Auto) Abs Immat Gran (auto) Absolute Neuts (auto) Absolute Nucleated RBC Nucleated RBC % (auto) Neutrophils % (Manual) Band Neutrophils % Lymphocytes % (Manual) Atypical Lymphs % (Man) Monocytes % (Manual) Eosinophils % (Manual) Basophils % (Manual) Metamyelocytes % Myelocytes % Abs Neuts (Manual) Lymphocytes # (Manual) Atyp Lymphs # (Manual) Monocytes # (Manual) Eosinophils # (Manual) Basophils # (Manual) Metamyelocytes # Myelocytes # Smudge Cells Platelet Estimate Large Platelets Plt Morphology Comment RBC Morphology Polychromasia Hypochromasia Basophilic Stippling Microcytosis Macrocytosis Tear Drop Cells Ovalocytes Acanthocytes (Spur) Schistocytes Smear Tech's Comments Smear Path Review PT INR D-Dimer High Sensitivty Hep-Ind Thrombocytop Com VBG pH VBG pCO2 VBG pO2 VBG HCO3 VBG O2 Saturation VBG Base Excess Sodium 143 Potassium 5.6 H Chloride 104 Carbon Dioxide 30 H Anion Gap 15 BUN 83 H Creatinine 2.07 H Estim Creat Clear Calc 42.6 Estimated GFR 32 POC Glucose 308 H 163 H Random Glucose 311 H Fasting Glucose Estimat Average Glucose Hemoglobin A1c % Lactic Acid Calcium 8.8 Phosphorus Magnesium Ferritin Total Bilirubin Direct Bilirubin AST ALT Alkaline Phosphatase Lactate Dehydrogenase Total Creatine Kinase Troponin I High Sens C-Reactive Protein B-Natriuretic Peptide Total Protein Albumin Procalcitonin Urine Color Urine Appearance Urine pH Ur Specific [place] Urine Protein Urine Glucose (UA) Urine Ketones Urine Blood Urine Nitrite Ur Leukocyte Esterase Urine RBC Urine WBC Ur Squamous Epith Cells Amorphous Sediment Urine Bacteria Hyaline Casts Urine Mucus Urine Osmolality Ur Random Sodium Ur Random Potassium Urine Creatinine Urine Microalbumin Microalb/Creat Ratio Nasal Screen MRSA (PCR) Nasal S. aureus Screen Nasal MRSA/S.aureus Interp Gastric Occult Blood Stool Occult Blood Vancomycin Trough Random Vancomycin Heparin Dep Plt Ab OD Hep-Induced Plt Ab [place] COVID-19 ([facility]) COVID-19 Clin Com Influenza Type A (PCR) Influenza Type B (PCR) L.pneumophila IgM Ab Ur L.pneumophila Ag Pneumocystis Source Pneumocyst jiroveci PCR RSV RNA Qual (PCR) SARS-CoV-2 RNA (RT-PCR) Blood Type Antibody Screen 05/16/21 05/16/21 05/16/21 05:31 05:32 05:32 WBC 11.9 H RBC 3.40 L Hgb 9.6 L Hct 31.2 L MCV 91.8 MCH 28.2 MCHC 30.8 L RDW 13.4 Plt Count 103 L MPV 12.0 Immature Gran % (Auto) 1.2 H Neut % (Auto) 85.6 H Lymph % (Auto) 7.5 L [place] % (Auto) 4.0 Eos % (Auto) 1.6 Baso % (Auto) 0.1 Lymph # (Auto) 0.9 L [place] # (Auto) 0.5 Eos # (Auto) 0.2 Baso # (Auto) 0.0 Abs Immat Gran (auto) 0.14 H Absolute Neuts (auto) 10.2 H Absolute Nucleated RBC 0.000 Nucleated RBC % (auto) 0.0 Neutrophils % (Manual) Band Neutrophils % Lymphocytes % (Manual) Atypical Lymphs % (Man) Monocytes % (Manual) Eosinophils % (Manual) Basophils % (Manual) Metamyelocytes % Myelocytes % Abs Neuts (Manual) Lymphocytes # (Manual) Atyp Lymphs # (Manual) Monocytes # (Manual) Eosinophils # (Manual) Basophils # (Manual) Metamyelocytes # Myelocytes # Smudge Cells Platelet Estimate Large Platelets Plt Morphology Comment RBC Morphology Polychromasia Hypochromasia Basophilic Stippling Microcytosis Macrocytosis Tear Drop Cells Ovalocytes Acanthocytes (Spur) Schistocytes Smear Tech's Comments Smear Path Review PT INR D-Dimer High Sensitivty Hep-Ind Thrombocytop Com VBG pH VBG pCO2 VBG pO2 VBG HCO3 VBG O2 Saturation VBG Base Excess Sodium 147 H Potassium 5.0 Chloride 105 Carbon Dioxide 33 H Anion Gap 14 BUN 75 H Creatinine 1.74 H Estim Creat Clear Calc 50.4 Estimated GFR 39 POC Glucose 158 H Random Glucose 166 H D Fasting Glucose Estimat Average Glucose Hemoglobin A1c % Lactic Acid Calcium 8.9 Phosphorus 3.7 Magnesium 2.1 Ferritin Total Bilirubin 1.2 H Direct Bilirubin AST 27 ALT 18 Alkaline Phosphatase 47 D Lactate Dehydrogenase Total Creatine Kinase Troponin I High Sens C-Reactive Protein B-Natriuretic Peptide Total Protein 5.6 L Albumin 3.5 Procalcitonin Urine Color Urine Appearance Urine pH Ur Specific [place] Urine Protein Urine Glucose (UA) Urine Ketones Urine Blood Urine Nitrite Ur Leukocyte Esterase Urine RBC Urine WBC Ur Squamous Epith Cells Amorphous Sediment Urine Bacteria Hyaline Casts Urine Mucus Urine Osmolality Ur Random Sodium Ur Random Potassium Urine Creatinine Urine Microalbumin Microalb/Creat Ratio Nasal Screen MRSA (PCR) Nasal S. aureus Screen Nasal MRSA/S.aureus Interp Gastric Occult Blood Stool Occult Blood Vancomycin Trough Random Vancomycin Heparin Dep Plt Ab OD Hep-Induced Plt Ab [place] COVID-19 ([facility]) COVID-19 Clin Com Influenza Type A (PCR) Influenza Type B (PCR) L.pneumophila IgM Ab Ur L.pneumophila Ag Pneumocystis Source Pneumocyst jiroveci PCR RSV RNA Qual (PCR) SARS-CoV-2 RNA (RT-PCR) Blood Type Antibody Screen 05/16/21 05/16/21 05/16/21 05:36 06:00 11:50 WBC RBC Hgb Hct MCV MCH MCHC RDW Plt Count MPV Immature Gran % (Auto) Neut % (Auto) Lymph % (Auto) [place] % (Auto) Eos % (Auto) Baso % (Auto) Lymph # (Auto) [place] # (Auto) Eos # (Auto) Baso # (Auto) Abs Immat Gran (auto) Absolute Neuts (auto) Absolute Nucleated RBC Nucleated RBC % (auto) Neutrophils % (Manual) Band Neutrophils % Lymphocytes % (Manual) Atypical Lymphs % (Man) Monocytes % (Manual) Eosinophils % (Manual) Basophils % (Manual) Metamyelocytes % Myelocytes % Abs Neuts (Manual) Lymphocytes # (Manual) Atyp Lymphs # (Manual) Monocytes # (Manual) Eosinophils # (Manual) Basophils # (Manual) Metamyelocytes # Myelocytes # Smudge Cells Platelet Estimate Large Platelets Plt Morphology Comment RBC Morphology Polychromasia Hypochromasia Basophilic Stippling Microcytosis Macrocytosis Tear Drop Cells Ovalocytes Acanthocytes (Spur) Schistocytes Smear Tech's Comments Smear Path Review PT INR D-Dimer High Sensitivty Hep-Ind Thrombocytop Com VBG pH 7.46 H VBG pCO2 54 VBG pO2 67 VBG HCO3 38 H VBG O2 Saturation 91.0 VBG Base Excess 13.0 Sodium Potassium Chloride Carbon Dioxide Anion Gap BUN Creatinine Estim Creat Clear Calc Estimated GFR POC Glucose 177 H Random Glucose Fasting Glucose Estimat Average Glucose Hemoglobin A1c % Lactic Acid Calcium Phosphorus Magnesium Ferritin Total Bilirubin Direct Bilirubin AST ALT Alkaline Phosphatase Lactate Dehydrogenase Total Creatine Kinase Troponin I High Sens C-Reactive Protein B-Natriuretic Peptide Total Protein Albumin Procalcitonin Urine Color Urine Appearance Urine pH Ur Specific [place] Urine Protein Urine Glucose (UA) Urine Ketones Urine Blood Urine Nitrite Ur Leukocyte Esterase Urine RBC Urine WBC Ur Squamous Epith Cells Amorphous Sediment Urine Bacteria Hyaline Casts Urine Mucus Urine Osmolality Ur Random Sodium Ur Random Potassium Urine Creatinine Urine Microalbumin Microalb/Creat Ratio Nasal Screen MRSA (PCR) Nasal S. aureus Screen Nasal MRSA/S.aureus Interp Gastric Occult Blood Stool Occult Blood POSITIVE Vancomycin Trough Random Vancomycin Heparin Dep Plt Ab OD Hep-Induced Plt Ab [place] COVID-19 ([facility]) COVID-19 Clin Com Influenza Type A (PCR) Influenza Type B (PCR) L.pneumophila IgM Ab Ur L.pneumophila Ag Pneumocystis Source Pneumocyst jiroveci PCR RSV RNA Qual (PCR) SARS-CoV-2 RNA (RT-PCR) Blood Type Antibody Screen 05/16/21 05/16/21 05/16/21 17:27 18:25 18:25 WBC 12.0 H RBC 3.54 L Hgb 10.2 L Hct 32.9 L MCV 92.9 MCH 28.8 MCHC 31.0 RDW 13.5 Plt Count 105 L MPV 11.4 Immature Gran % (Auto) 1.3 H Neut % (Auto) 86.2 H Lymph % (Auto) 6.0 L [place] % (Auto) 3.6 Eos % (Auto) 2.8 Baso % (Auto) 0.1 Lymph # (Auto) 0.7 L [place] # (Auto) 0.4 Eos # (Auto) 0.3 Baso # (Auto) 0.0 Abs Immat Gran (auto) 0.16 H Absolute Neuts (auto) 10.3 H Absolute Nucleated RBC 0.000 Nucleated RBC % (auto) 0.0 Neutrophils % (Manual) Band Neutrophils % Lymphocytes % (Manual) Atypical Lymphs % (Man) Monocytes % (Manual) Eosinophils % (Manual) Basophils % (Manual) Metamyelocytes % Myelocytes % Abs Neuts (Manual) Lymphocytes # (Manual) Atyp Lymphs # (Manual) Monocytes # (Manual) Eosinophils # (Manual) Basophils # (Manual) Metamyelocytes # Myelocytes # Smudge Cells Platelet Estimate Large Platelets Plt Morphology Comment RBC Morphology Polychromasia Hypochromasia Basophilic Stippling Microcytosis Macrocytosis Tear Drop Cells Ovalocytes Acanthocytes (Spur) Schistocytes Smear Tech's Comments Smear Path Review PT INR D-Dimer High Sensitivty Hep-Ind Thrombocytop Com VBG pH VBG pCO2 VBG pO2 VBG HCO3 VBG O2 Saturation VBG Base Excess Sodium 147 H Potassium 5.2 H Chloride 108 Carbon Dioxide 31 H Anion Gap 13 BUN 79 H Creatinine 1.91 H Estim Creat Clear Calc 45.9 Estimated GFR 35 POC Glucose 196 H Random Glucose 217 H Fasting Glucose Estimat Average Glucose Hemoglobin A1c % Lactic Acid Calcium 8.7 Phosphorus Magnesium Ferritin Total Bilirubin Direct Bilirubin AST ALT Alkaline Phosphatase Lactate Dehydrogenase Total Creatine Kinase Troponin I High Sens C-Reactive Protein B-Natriuretic Peptide Total Protein Albumin Procalcitonin Urine Color Urine Appearance Urine pH Ur Specific [place] Urine Protein Urine Glucose (UA) Urine Ketones Urine Blood Urine Nitrite Ur Leukocyte Esterase Urine RBC Urine WBC Ur Squamous Epith Cells Amorphous Sediment Urine Bacteria Hyaline Casts Urine Mucus Urine Osmolality Ur Random Sodium Ur Random Potassium Urine Creatinine Urine Microalbumin Microalb/Creat Ratio Nasal Screen MRSA (PCR) Nasal S. aureus Screen Nasal MRSA/S.aureus Interp Gastric Occult Blood Stool Occult Blood Vancomycin Trough Random Vancomycin Heparin Dep Plt Ab OD Hep-Induced Plt Ab [place] COVID-19 ([facility]) COVID-19 Clin Com Influenza Type A (PCR) Influenza Type B (PCR) L.pneumophila IgM Ab Ur L.pneumophila Ag Pneumocystis Source Pneumocyst jiroveci PCR RSV RNA Qual (PCR) SARS-CoV-2 RNA (RT-PCR) Blood Type Antibody Screen 05/16/21 05/17/21 05/17/21 23:24 05:29 05:35 WBC 14.1 H RBC 3.57 L Hgb 10.0 L Hct 33.7 L MCV 94.4 MCH 28.0 MCHC 29.7 L RDW 13.7 Plt Count 125 L MPV 12.3 Immature Gran % (Auto) 1.3 H Neut % (Auto) 82.1 H Lymph % (Auto) 9.5 L [place] % (Auto) 3.5 Eos % (Auto) 3.5 Baso % (Auto) 0.1 Lymph # (Auto) 1.3 [place] # (Auto) 0.5 Eos # (Auto) 0.5 H Baso # (Auto) 0.0 Abs Immat Gran (auto) 0.19 H Absolute Neuts (auto) 11.6 H Absolute Nucleated RBC 0.000 Nucleated RBC % (auto) 0.0 Neutrophils % (Manual) Band Neutrophils % Lymphocytes % (Manual) Atypical Lymphs % (Man) Monocytes % (Manual) Eosinophils % (Manual) Basophils % (Manual) Metamyelocytes % Myelocytes % Abs Neuts (Manual) Lymphocytes # (Manual) Atyp Lymphs # (Manual) Monocytes # (Manual) Eosinophils # (Manual) Basophils # (Manual) Metamyelocytes # Myelocytes # Smudge Cells Platelet Estimate Large Platelets Plt Morphology Comment RBC Morphology Polychromasia Hypochromasia Basophilic Stippling Microcytosis Macrocytosis Tear Drop Cells Ovalocytes Acanthocytes (Spur) Schistocytes Smear Tech's Comments Smear Path Review PT INR D-Dimer High Sensitivty Hep-Ind Thrombocytop Com VBG pH VBG pCO2 VBG pO2 VBG HCO3 VBG O2 Saturation VBG Base Excess Sodium Potassium Chloride Carbon Dioxide Anion Gap BUN Creatinine Estim Creat Clear Calc Estimated GFR POC Glucose 131 H 152 H Random Glucose Fasting Glucose Estimat Average Glucose Hemoglobin A1c % Lactic Acid Calcium Phosphorus Magnesium Ferritin Total Bilirubin Direct Bilirubin AST ALT Alkaline Phosphatase Lactate Dehydrogenase Total Creatine Kinase Troponin I High Sens C-Reactive Protein B-Natriuretic Peptide Total Protein Albumin Procalcitonin Urine Color Urine Appearance Urine pH Ur Specific [place] Urine Protein Urine Glucose (UA) Urine Ketones Urine Blood Urine Nitrite Ur Leukocyte Esterase Urine RBC Urine WBC Ur Squamous Epith Cells Amorphous Sediment Urine Bacteria Hyaline Casts Urine Mucus Urine Osmolality Ur Random Sodium Ur Random Potassium Urine Creatinine Urine Microalbumin Microalb/Creat Ratio Nasal Screen MRSA (PCR) Nasal S. aureus Screen Nasal MRSA/S.aureus Interp Gastric Occult Blood Stool Occult Blood Vancomycin Trough Random Vancomycin Heparin Dep Plt Ab OD Hep-Induced Plt Ab [place] COVID-19 ([facility]) COVID-19 Clin Com Influenza Type A (PCR) Influenza Type B (PCR) L.pneumophila IgM Ab Ur L.pneumophila Ag Pneumocystis Source Pneumocyst jiroveci PCR RSV RNA Qual (PCR) SARS-CoV-2 RNA (RT-PCR) Blood Type Antibody Screen 05/17/21 05/17/21 05/17/21 05:35 05:39 10:12 WBC RBC Hgb Hct MCV MCH MCHC RDW Plt Count MPV Immature Gran % (Auto) Neut % (Auto) Lymph % (Auto) [place] % (Auto) Eos % (Auto) Baso % (Auto) Lymph # (Auto) [place] # (Auto) Eos # (Auto) Baso # (Auto) Abs Immat Gran (auto) Absolute Neuts (auto) Absolute Nucleated RBC Nucleated RBC % (auto) Neutrophils % (Manual) Band Neutrophils % Lymphocytes % (Manual) Atypical Lymphs % (Man) Monocytes % (Manual) Eosinophils % (Manual) Basophils % (Manual) Metamyelocytes % Myelocytes % Abs Neuts (Manual) Lymphocytes # (Manual) Atyp Lymphs # (Manual) Monocytes # (Manual) Eosinophils # (Manual) Basophils # (Manual) Metamyelocytes # Myelocytes # Smudge Cells Platelet Estimate Large Platelets Plt Morphology Comment RBC Morphology Polychromasia Hypochromasia Basophilic Stippling Microcytosis Macrocytosis Tear Drop Cells Ovalocytes Acanthocytes (Spur) Schistocytes Smear Tech's Comments Smear Path Review PT INR D-Dimer High Sensitivty Hep-Ind Thrombocytop Com VBG pH 7.43 VBG pCO2 54 VBG pO2 46 VBG HCO3 36 H VBG O2 Saturation 78.0 VBG Base Excess 11.0 Sodium 148 H Potassium 5.6 H Chloride 107 Carbon Dioxide 30 H Anion Gap 17 BUN 85 H Creatinine 2.06 H Estim Creat Clear Calc 42.4 Estimated GFR 32 POC Glucose Random Glucose 170 H Fasting Glucose Estimat Average Glucose Hemoglobin A1c % Lactic Acid Calcium 8.6 Phosphorus 3.9 Magnesium 2.1 Ferritin Total Bilirubin Direct Bilirubin AST ALT Alkaline Phosphatase Lactate Dehydrogenase Total Creatine Kinase Troponin I High Sens C-Reactive Protein B-Natriuretic Peptide Total Protein Albumin 3.0 L Procalcitonin Urine Color Urine Appearance Urine pH Ur Specific [place] Urine Protein Urine Glucose (UA) Urine Ketones Urine Blood Urine Nitrite Ur Leukocyte Esterase Urine RBC Urine WBC Ur Squamous Epith Cells Amorphous Sediment Urine Bacteria Hyaline Casts Urine Mucus Urine Osmolality Ur Random Sodium Ur Random Potassium Urine Creatinine Urine Microalbumin Microalb/Creat Ratio Nasal Screen MRSA (PCR) Nasal S. aureus Screen Nasal MRSA/S.aureus Interp Gastric Occult Blood Stool Occult Blood Vancomycin Trough 16.7 Random Vancomycin Heparin Dep Plt Ab OD Hep-Induced Plt Ab [place] COVID-19 ([facility]) COVID-19 Clin Com Influenza Type A (PCR) Influenza Type B (PCR) L.pneumophila IgM Ab Ur L.pneumophila Ag Pneumocystis Source Pneumocyst jiroveci PCR RSV RNA Qual (PCR) SARS-CoV-2 RNA (RT-PCR) Blood Type Antibody Screen 05/17/21 05/17/21 05/17/21 11:36 17:32 19:45 WBC RBC Hgb Hct MCV MCH MCHC RDW Plt Count MPV Immature Gran % (Auto) Neut % (Auto) Lymph % (Auto) [place] % (Auto) Eos % (Auto) Baso % (Auto) Lymph # (Auto) [place] # (Auto) Eos # (Auto) Baso # (Auto) Abs Immat Gran (auto) Absolute Neuts (auto) Absolute Nucleated RBC Nucleated RBC % (auto) Neutrophils % (Manual) Band Neutrophils % Lymphocytes % (Manual) Atypical Lymphs % (Man) Monocytes % (Manual) Eosinophils % (Manual) Basophils % (Manual) Metamyelocytes % Myelocytes % Abs Neuts (Manual) Lymphocytes # (Manual) Atyp Lymphs # (Manual) Monocytes # (Manual) Eosinophils # (Manual) Basophils # (Manual) Metamyelocytes # Myelocytes # Smudge Cells Platelet Estimate Large Platelets Plt Morphology Comment RBC Morphology Polychromasia Hypochromasia Basophilic Stippling Microcytosis Macrocytosis Tear Drop Cells Ovalocytes Acanthocytes (Spur) Schistocytes Smear Tech's Comments Smear Path Review PT INR D-Dimer High Sensitivty Hep-Ind Thrombocytop Com VBG pH VBG pCO2 VBG pO2 VBG HCO3 VBG O2 Saturation VBG Base Excess Sodium Potassium Chloride Carbon Dioxide Anion Gap BUN Creatinine Estim Creat Clear Calc Estimated GFR POC Glucose 170 H 162 H 110 Random Glucose Fasting Glucose Estimat Average Glucose Hemoglobin A1c % Lactic Acid Calcium Phosphorus Magnesium Ferritin Total Bilirubin Direct Bilirubin AST ALT Alkaline Phosphatase Lactate Dehydrogenase Total Creatine Kinase Troponin I High Sens C-Reactive Protein B-Natriuretic Peptide Total Protein Albumin Procalcitonin Urine Color Urine Appearance Urine pH Ur Specific [place] Urine Protein Urine Glucose (UA) Urine Ketones Urine Blood Urine Nitrite Ur Leukocyte Esterase Urine RBC Urine WBC Ur Squamous Epith Cells Amorphous Sediment Urine Bacteria Hyaline Casts Urine Mucus Urine Osmolality Ur Random Sodium Ur Random Potassium Urine Creatinine Urine Microalbumin Microalb/Creat Ratio Nasal Screen MRSA (PCR) Nasal S. aureus Screen Nasal MRSA/S.aureus Interp Gastric Occult Blood Stool Occult Blood Vancomycin Trough Random Vancomycin Heparin Dep Plt Ab OD Hep-Induced Plt Ab [place] COVID-19 ([facility]) COVID-19 Clin Com Influenza Type A (PCR) Influenza Type B (PCR) L.pneumophila IgM Ab Ur L.pneumophila Ag Pneumocystis Source Pneumocyst jiroveci PCR RSV RNA Qual (PCR) SARS-CoV-2 RNA (RT-PCR) Blood Type Antibody Screen 05/17/21 05/17/21 05/18/21 20:06 23:36 04:54 WBC RBC Hgb Hct MCV MCH MCHC RDW Plt Count MPV Immature Gran % (Auto) Neut % (Auto) Lymph % (Auto) [place] % (Auto) Eos % (Auto) Baso % (Auto) Lymph # (Auto) [place] # (Auto) Eos # (Auto) Baso # (Auto) Abs Immat Gran (auto) Absolute Neuts (auto) Absolute Nucleated RBC Nucleated RBC % (auto) Neutrophils % (Manual) Band Neutrophils % Lymphocytes % (Manual) Atypical Lymphs % (Man) Monocytes % (Manual) Eosinophils % (Manual) Basophils % (Manual) Metamyelocytes % Myelocytes % Abs Neuts (Manual) Lymphocytes # (Manual) Atyp Lymphs # (Manual) Monocytes # (Manual) Eosinophils # (Manual) Basophils # (Manual) Metamyelocytes # Myelocytes # Smudge Cells Platelet Estimate Large Platelets Plt Morphology Comment RBC Morphology Polychromasia Hypochromasia Basophilic Stippling Microcytosis Macrocytosis Tear Drop Cells Ovalocytes Acanthocytes (Spur) Schistocytes Smear Tech's Comments Smear Path Review PT INR D-Dimer High Sensitivty Hep-Ind Thrombocytop Com VBG pH VBG pCO2 VBG pO2 VBG HCO3 VBG O2 Saturation VBG Base Excess Sodium 151 H Potassium 4.7 Chloride 109 H Carbon Dioxide 29 Anion Gap 18 BUN 85 H Creatinine 2.26 H Estim Creat Clear Calc 38.7 Estimated GFR 29 POC Glucose 100 131 H Random Glucose 108 D Fasting Glucose Estimat Average Glucose Hemoglobin A1c % Lactic Acid Calcium 8.5 Phosphorus Magnesium Ferritin Total Bilirubin Direct Bilirubin AST ALT Alkaline Phosphatase Lactate Dehydrogenase Total Creatine Kinase Troponin I High Sens C-Reactive Protein B-Natriuretic Peptide Total Protein Albumin Procalcitonin Urine Color Urine Appearance Urine pH Ur Specific [place] Urine Protein Urine Glucose (UA) Urine Ketones Urine Blood Urine Nitrite Ur Leukocyte Esterase Urine RBC Urine WBC Ur Squamous Epith Cells Amorphous Sediment Urine Bacteria Hyaline Casts Urine Mucus Urine Osmolality Ur Random Sodium Ur Random Potassium Urine Creatinine Urine Microalbumin Microalb/Creat Ratio Nasal Screen MRSA (PCR) Nasal S. aureus Screen Nasal MRSA/S.aureus Interp Gastric Occult Blood Stool Occult Blood Vancomycin Trough Random Vancomycin Heparin Dep Plt Ab OD Hep-Induced Plt Ab [place] COVID-19 ([facility]) COVID-19 Clin Com Influenza Type A (PCR) Influenza Type B (PCR) L.pneumophila IgM Ab Ur L.pneumophila Ag Pneumocystis Source Pneumocyst jiroveci PCR RSV RNA Qual (PCR) SARS-CoV-2 RNA (RT-PCR) Blood Type Antibody Screen 05/18/21 05/18/21 05/18/21 05:25 05:25 05:31 WBC 12.1 H RBC 3.11 L Hgb 8.8 L Hct 30.1 L MCV 96.8 MCH 28.3 MCHC 29.2 L RDW 14.2 Plt Count 127 L MPV 11.9 Immature Gran % (Auto) 1.7 H Neut % (Auto) 86.0 H Lymph % (Auto) 5.8 L [place] % (Auto) 3.4 Eos % (Auto) 3.0 Baso % (Auto) 0.1 Lymph # (Auto) 0.7 L [place] # (Auto) 0.4 Eos # (Auto) 0.4 Baso # (Auto) 0.0 Abs Immat Gran (auto) 0.21 H Absolute Neuts (auto) 10.4 H Absolute Nucleated RBC 0.000 Nucleated RBC % (auto) 0.0 Neutrophils % (Manual) Band Neutrophils % Lymphocytes % (Manual) Atypical Lymphs % (Man) Monocytes % (Manual) Eosinophils % (Manual) Basophils % (Manual) Metamyelocytes % Myelocytes % Abs Neuts (Manual) Lymphocytes # (Manual) Atyp Lymphs # (Manual) Monocytes # (Manual) Eosinophils # (Manual) Basophils # (Manual) Metamyelocytes # Myelocytes # Smudge Cells Platelet Estimate Large Platelets Plt Morphology Comment RBC Morphology Polychromasia Hypochromasia Basophilic Stippling Microcytosis Macrocytosis Tear Drop Cells Ovalocytes Acanthocytes (Spur) Schistocytes Smear Tech's Comments Smear Path Review PT INR D-Dimer High Sensitivty Hep-Ind Thrombocytop Com VBG pH 7.39 VBG pCO2 55 VBG pO2 51 VBG HCO3 34 H VBG O2 Saturation 81.0 VBG Base Excess 8.2 Sodium 150 H Potassium 4.9 Chloride 108 Carbon Dioxide 30 H Anion Gap 17 BUN 86 H Creatinine 2.22 H Estim Creat Clear Calc 39.7 Estimated GFR 30 POC Glucose Random Glucose 146 H D Fasting Glucose Estimat Average Glucose Hemoglobin A1c % Lactic Acid Calcium 8.7 Phosphorus 4.7 H Magnesium 2.0 Ferritin Total Bilirubin Direct Bilirubin AST ALT Alkaline Phosphatase Lactate Dehydrogenase Total Creatine Kinase Troponin I High Sens C-Reactive Protein B-Natriuretic Peptide Total Protein Albumin 3.7 D Procalcitonin Urine Color Urine Appearance Urine pH Ur Specific [place] Urine Protein Urine Glucose (UA) Urine Ketones Urine Blood Urine Nitrite Ur Leukocyte Esterase Urine RBC Urine WBC Ur Squamous Epith Cells Amorphous Sediment Urine Bacteria Hyaline Casts Urine Mucus Urine Osmolality Ur Random Sodium Ur Random Potassium Urine Creatinine Urine Microalbumin Microalb/Creat Ratio Nasal Screen MRSA (PCR) Nasal S. aureus Screen Nasal MRSA/S.aureus Interp Gastric Occult Blood Stool Occult Blood Vancomycin Trough Random Vancomycin Heparin Dep Plt Ab OD Hep-Induced Plt Ab [place] COVID-19 ([facility]) COVID-19 Clin Com Influenza Type A (PCR) Influenza Type B (PCR) L.pneumophila IgM Ab Ur L.pneumophila Ag Pneumocystis Source Pneumocyst jiroveci PCR RSV RNA Qual (PCR) SARS-CoV-2 RNA (RT-PCR) Blood Type Antibody Screen 05/18/21 05/18/21 05/18/21 11:59 18:02 18:08 WBC RBC Hgb Hct MCV MCH MCHC RDW Plt Count MPV Immature Gran % (Auto) Neut % (Auto) Lymph % (Auto) [place] % (Auto) Eos % (Auto) Baso % (Auto) Lymph # (Auto) [place] # (Auto) Eos # (Auto) Baso # (Auto) Abs Immat Gran (auto) Absolute Neuts (auto) Absolute Nucleated RBC Nucleated RBC % (auto) Neutrophils % (Manual) Band Neutrophils % Lymphocytes % (Manual) Atypical Lymphs % (Man) Monocytes % (Manual) Eosinophils % (Manual) Basophils % (Manual) Metamyelocytes % Myelocytes % Abs Neuts (Manual) Lymphocytes # (Manual) Atyp Lymphs # (Manual) Monocytes # (Manual) Eosinophils # (Manual) Basophils # (Manual) Metamyelocytes # Myelocytes # Smudge Cells Platelet Estimate Large Platelets Plt Morphology Comment RBC Morphology Polychromasia Hypochromasia Basophilic Stippling Microcytosis Macrocytosis Tear Drop Cells Ovalocytes Acanthocytes (Spur) Schistocytes Smear Tech's Comments Smear Path Review PT INR D-Dimer High Sensitivty Hep-Ind Thrombocytop Com VBG pH VBG pCO2 VBG pO2 VBG HCO3 VBG O2 Saturation VBG Base Excess Sodium 147 H Potassium 4.7 Chloride 107 Carbon Dioxide 31 H Anion Gap 14 BUN 91 H Creatinine 2.25 H Estim Creat Clear Calc 39.1 Estimated GFR 29 POC Glucose 195 H 185 H Random Glucose 201 H D Fasting Glucose Estimat Average Glucose Hemoglobin A1c % Lactic Acid Calcium 8.5 Phosphorus Magnesium Ferritin Total Bilirubin Direct Bilirubin AST ALT Alkaline Phosphatase Lactate Dehydrogenase Total Creatine Kinase Troponin I High Sens C-Reactive Protein B-Natriuretic Peptide Total Protein Albumin Procalcitonin Urine Color Urine Appearance Urine pH Ur Specific [place] Urine Protein Urine Glucose (UA) Urine Ketones Urine Blood Urine Nitrite Ur Leukocyte Esterase Urine RBC Urine WBC Ur Squamous Epith Cells Amorphous Sediment Urine Bacteria Hyaline Casts Urine Mucus Urine Osmolality Ur Random Sodium Ur Random Potassium Urine Creatinine Urine Microalbumin Microalb/Creat Ratio Nasal Screen MRSA (PCR) Nasal S. aureus Screen Nasal MRSA/S.aureus Interp Gastric Occult Blood Stool Occult Blood Vancomycin Trough Random Vancomycin Heparin Dep Plt Ab OD Hep-Induced Plt Ab [place] COVID-19 ([facility]) COVID-19 Clin Com Influenza Type A (PCR) Influenza Type B (PCR) L.pneumophila IgM Ab Ur L.pneumophila Ag Pneumocystis Source Pneumocyst jiroveci PCR RSV RNA Qual (PCR) SARS-CoV-2 RNA (RT-PCR) Blood Type Antibody Screen 05/18/21 05/18/21 05/19/21 20:04 23:29 05:25 WBC 11.2 H RBC 3.07 L Hgb 8.7 L Hct 29.4 L MCV 95.8 MCH 28.3 MCHC 29.6 L RDW 14.3 Plt Count 134 L MPV 11.7 Immature Gran % (Auto) 1.0 H Neut % (Auto) 85.7 H Lymph % (Auto) 5.5 L [place] % (Auto) 3.0 Eos % (Auto) 4.7 H Baso % (Auto) 0.1 Lymph # (Auto) 0.6 L [place] # (Auto) 0.3 Eos # (Auto) 0.5 H Baso # (Auto) 0.0 Abs Immat Gran (auto) 0.11 H Absolute Neuts (auto) 9.6 H Absolute Nucleated RBC 0.000 Nucleated RBC % (auto) 0.0 Neutrophils % (Manual) Band Neutrophils % Lymphocytes % (Manual) Atypical Lymphs % (Man) Monocytes % (Manual) Eosinophils % (Manual) Basophils % (Manual) Metamyelocytes % Myelocytes % Abs Neuts (Manual) Lymphocytes # (Manual) Atyp Lymphs # (Manual) Monocytes # (Manual) Eosinophils # (Manual) Basophils # (Manual) Metamyelocytes # Myelocytes # Smudge Cells Platelet Estimate Large Platelets Plt Morphology Comment RBC Morphology Polychromasia Hypochromasia Basophilic Stippling Microcytosis Macrocytosis Tear Drop Cells Ovalocytes Acanthocytes (Spur) Schistocytes Smear Tech's Comments Smear Path Review PT INR D-Dimer High Sensitivty Hep-Ind Thrombocytop Com VBG pH VBG pCO2 VBG pO2 VBG HCO3 VBG O2 Saturation VBG Base Excess Sodium Potassium Chloride Carbon Dioxide Anion Gap BUN Creatinine Estim Creat Clear Calc Estimated GFR POC Glucose 152 H 175 H Random Glucose Fasting Glucose Estimat Average Glucose Hemoglobin A1c % Lactic Acid Calcium Phosphorus Magnesium Ferritin Total Bilirubin Direct Bilirubin AST ALT Alkaline Phosphatase Lactate Dehydrogenase Total Creatine Kinase Troponin I High Sens C-Reactive Protein B-Natriuretic Peptide Total Protein Albumin Procalcitonin Urine Color Urine Appearance Urine pH Ur Specific [place] Urine Protein Urine Glucose (UA) Urine Ketones Urine Blood Urine Nitrite Ur Leukocyte Esterase Urine RBC Urine WBC Ur Squamous Epith Cells Amorphous Sediment Urine Bacteria Hyaline Casts Urine Mucus Urine Osmolality Ur Random Sodium Ur Random Potassium Urine Creatinine Urine Microalbumin Microalb/Creat Ratio Nasal Screen MRSA (PCR) Nasal S. aureus Screen Nasal MRSA/S.aureus Interp Gastric Occult Blood Stool Occult Blood Vancomycin Trough Random Vancomycin Heparin Dep Plt Ab OD Hep-Induced Plt Ab [place] COVID-19 ([facility]) COVID-19 Clin Com Influenza Type A (PCR) Influenza Type B (PCR) L.pneumophila IgM Ab Ur L.pneumophila Ag Pneumocystis Source Pneumocyst jiroveci PCR RSV RNA Qual (PCR) SARS-CoV-2 RNA (RT-PCR) Blood Type Antibody Screen 05/19/21 05/19/21 05/19/21 05:25 05:32 05:35 WBC RBC Hgb Hct MCV MCH MCHC RDW Plt Count MPV Immature Gran % (Auto) Neut % (Auto) Lymph % (Auto) [place] % (Auto) Eos % (Auto) Baso % (Auto) Lymph # (Auto) [place] # (Auto) Eos # (Auto) Baso # (Auto) Abs Immat Gran (auto) Absolute Neuts (auto) Absolute Nucleated RBC Nucleated RBC % (auto) Neutrophils % (Manual) Band Neutrophils % Lymphocytes % (Manual) Atypical Lymphs % (Man) Monocytes % (Manual) Eosinophils % (Manual) Basophils % (Manual) Metamyelocytes % Myelocytes % Abs Neuts (Manual) Lymphocytes # (Manual) Atyp Lymphs # (Manual) Monocytes # (Manual) Eosinophils # (Manual) Basophils # (Manual) Metamyelocytes # Myelocytes # Smudge Cells Platelet Estimate Large Platelets Plt Morphology Comment RBC Morphology Polychromasia Hypochromasia Basophilic Stippling Microcytosis Macrocytosis Tear Drop Cells Ovalocytes Acanthocytes (Spur) Schistocytes Smear Tech's Comments Smear Path Review PT INR D-Dimer High Sensitivty Hep-Ind Thrombocytop Com VBG pH 7.41 VBG pCO2 56 VBG pO2 54 VBG HCO3 36 H VBG O2 Saturation 84.0 VBG Base Excess 10.2 Sodium 147 H Potassium 4.7 Chloride 107 Carbon Dioxide 30 H Anion Gap 15 BUN 89 H Creatinine 1.99 H Estim Creat Clear Calc 44.5 Estimated GFR 34 POC Glucose 125 H Random Glucose 129 H D Fasting Glucose Estimat Average Glucose Hemoglobin A1c % Lactic Acid Calcium 8.6 Phosphorus 4.8 H Magnesium 2.0 Ferritin Total Bilirubin Direct Bilirubin AST ALT Alkaline Phosphatase Lactate Dehydrogenase Total Creatine Kinase Troponin I High Sens C-Reactive Protein B-Natriuretic Peptide Total Protein Albumin 3.2 L Procalcitonin Urine Color Urine Appearance Urine pH Ur Specific [place] Urine Protein Urine Glucose (UA) Urine Ketones Urine Blood Urine Nitrite Ur Leukocyte Esterase Urine RBC Urine WBC Ur Squamous Epith Cells Amorphous Sediment Urine Bacteria Hyaline Casts Urine Mucus Urine Osmolality Ur Random Sodium Ur Random Potassium Urine Creatinine Urine Microalbumin Microalb/Creat Ratio Nasal Screen MRSA (PCR) Nasal S. aureus Screen Nasal MRSA/S.aureus Interp Gastric Occult Blood Stool Occult Blood Vancomycin Trough Random Vancomycin Heparin Dep Plt Ab OD Hep-Induced Plt Ab [place] COVID-19 ([facility]) COVID-19 Clin Com Influenza Type A (PCR) Influenza Type B (PCR) L.pneumophila IgM Ab Ur L.pneumophila Ag Pneumocystis Source Pneumocyst jiroveci PCR RSV RNA Qual (PCR) SARS-CoV-2 RNA (RT-PCR) Blood Type Antibody Screen 05/19/21 05/19/21 05/19/21 11:25 17:59 23:53 WBC RBC Hgb Hct MCV MCH MCHC RDW Plt Count MPV Immature Gran % (Auto) Neut % (Auto) Lymph % (Auto) [place] % (Auto) Eos % (Auto) Baso % (Auto) Lymph # (Auto) [place] # (Auto) Eos # (Auto) Baso # (Auto) Abs Immat Gran (auto) Absolute Neuts (auto) Absolute Nucleated RBC Nucleated RBC % (auto) Neutrophils % (Manual) Band Neutrophils % Lymphocytes % (Manual) Atypical Lymphs % (Man) Monocytes % (Manual) Eosinophils % (Manual) Basophils % (Manual) Metamyelocytes % Myelocytes % Abs Neuts (Manual) Lymphocytes # (Manual) Atyp Lymphs # (Manual) Monocytes # (Manual) Eosinophils # (Manual) Basophils # (Manual) Metamyelocytes # Myelocytes # Smudge Cells Platelet Estimate Large Platelets Plt Morphology Comment RBC Morphology Polychromasia Hypochromasia Basophilic Stippling Microcytosis Macrocytosis Tear Drop Cells Ovalocytes Acanthocytes (Spur) Schistocytes Smear Tech's Comments Smear Path Review PT INR D-Dimer High Sensitivty Hep-Ind Thrombocytop Com VBG pH VBG pCO2 VBG pO2 VBG HCO3 VBG O2 Saturation VBG Base Excess Sodium Potassium Chloride Carbon Dioxide Anion Gap BUN Creatinine Estim Creat Clear Calc Estimated GFR POC Glucose 175 H 187 H 188 H Random Glucose Fasting Glucose Estimat Average Glucose Hemoglobin A1c % Lactic Acid Calcium Phosphorus Magnesium Ferritin Total Bilirubin Direct Bilirubin AST ALT Alkaline Phosphatase Lactate Dehydrogenase Total Creatine Kinase Troponin I High Sens C-Reactive Protein B-Natriuretic Peptide Total Protein Albumin Procalcitonin Urine Color Urine Appearance Urine pH Ur Specific [place] Urine Protein Urine Glucose (UA) Urine Ketones Urine Blood Urine Nitrite Ur Leukocyte Esterase Urine RBC Urine WBC Ur Squamous Epith Cells Amorphous Sediment Urine Bacteria Hyaline Casts Urine Mucus Urine Osmolality Ur Random Sodium Ur Random Potassium Urine Creatinine Urine Microalbumin Microalb/Creat Ratio Nasal Screen MRSA (PCR) Nasal S. aureus Screen Nasal MRSA/S.aureus Interp Gastric Occult Blood Stool Occult Blood Vancomycin Trough Random Vancomycin Heparin Dep Plt Ab OD Hep-Induced Plt Ab [place] COVID-19 ([facility]) COVID-19 Clin Com Influenza Type A (PCR) Influenza Type B (PCR) L.pneumophila IgM Ab Ur L.pneumophila Ag Pneumocystis Source Pneumocyst jiroveci PCR RSV RNA Qual (PCR) SARS-CoV-2 RNA (RT-PCR) Blood Type Antibody Screen 05/20/21 05/20/21 05/20/21 05:22 05:22 05:24 WBC 10.8 RBC 2.89 L Hgb 8.2 L Hct 27.6 L MCV 95.5 MCH 28.4 MCHC 29.7 L RDW 14.3 Plt Count 167 MPV 12.3 Immature Gran % (Auto) 1.4 H Neut % (Auto) 83.1 H Lymph % (Auto) 8.7 L [place] % (Auto) 3.3 Eos % (Auto) 3.4 Baso % (Auto) 0.1 Lymph # (Auto) 0.9 L [place] # (Auto) 0.4 Eos # (Auto) 0.4 Baso # (Auto) 0.0 Abs Immat Gran (auto) 0.15 H Absolute Neuts (auto) 8.9 H Absolute Nucleated RBC 0.000 Nucleated RBC % (auto) 0.0 Neutrophils % (Manual) Band Neutrophils % Lymphocytes % (Manual) Atypical Lymphs % (Man) Monocytes % (Manual) Eosinophils % (Manual) Basophils % (Manual) Metamyelocytes % Myelocytes % Abs Neuts (Manual) Lymphocytes # (Manual) Atyp Lymphs # (Manual) Monocytes # (Manual) Eosinophils # (Manual) Basophils # (Manual) Metamyelocytes # Myelocytes # Smudge Cells Platelet Estimate Large Platelets Plt Morphology Comment RBC Morphology Polychromasia Hypochromasia Basophilic Stippling Microcytosis Macrocytosis Tear Drop Cells Ovalocytes Acanthocytes (Spur) Schistocytes Smear Tech's Comments Smear Path Review PT INR D-Dimer High Sensitivty Hep-Ind Thrombocytop Com VBG pH 7.36 VBG pCO2 52 VBG pO2 50 VBG HCO3 30 H VBG O2 Saturation 78.0 VBG Base Excess 4.4 Sodium 144 Potassium 4.6 Chloride 104 Carbon Dioxide 28 Anion Gap 17 BUN 98 H Creatinine 2.48 H Estim Creat Clear Calc 35.7 Estimated GFR 26 POC Glucose Random Glucose 206 H D Fasting Glucose Estimat Average Glucose Hemoglobin A1c % Lactic Acid Calcium 8.7 Phosphorus 4.8 H Magnesium 2.1 Ferritin Total Bilirubin Direct Bilirubin AST ALT Alkaline Phosphatase Lactate Dehydrogenase Total Creatine Kinase Troponin I High Sens C-Reactive Protein B-Natriuretic Peptide Total Protein Albumin 3.8 Procalcitonin Urine Color Urine Appearance Urine pH Ur Specific [place] Urine Protein Urine Glucose (UA) Urine Ketones Urine Blood Urine Nitrite Ur Leukocyte Esterase Urine RBC Urine WBC Ur Squamous Epith Cells Amorphous Sediment Urine Bacteria Hyaline Casts Urine Mucus Urine Osmolality Ur Random Sodium Ur Random Potassium Urine Creatinine Urine Microalbumin Microalb/Creat Ratio Nasal Screen MRSA (PCR) Nasal S. aureus Screen Nasal MRSA/S.aureus Interp Gastric Occult Blood Stool Occult Blood Vancomycin Trough Random Vancomycin Heparin Dep Plt Ab OD Hep-Induced Plt Ab [place] COVID-19 ([facility]) COVID-19 Clin Com Influenza Type A (PCR) Influenza Type B (PCR) L.pneumophila IgM Ab Ur L.pneumophila Ag Pneumocystis Source Pneumocyst jiroveci PCR RSV RNA Qual (PCR) SARS-CoV-2 RNA (RT-PCR) Blood Type Antibody Screen 05/20/21 05/20/21 05/20/21 05:39 11:46 17:42 WBC RBC Hgb Hct MCV MCH MCHC RDW Plt Count MPV Immature Gran % (Auto) Neut % (Auto) Lymph % (Auto) [place] % (Auto) Eos % (Auto) Baso % (Auto) Lymph # (Auto) [place] # (Auto) Eos # (Auto) Baso # (Auto) Abs Immat Gran (auto) Absolute Neuts (auto) Absolute Nucleated RBC Nucleated RBC % (auto) Neutrophils % (Manual) Band Neutrophils % Lymphocytes % (Manual) Atypical Lymphs % (Man) Monocytes % (Manual) Eosinophils % (Manual) Basophils % (Manual) Metamyelocytes % Myelocytes % Abs Neuts (Manual) Lymphocytes # (Manual) Atyp Lymphs # (Manual) Monocytes # (Manual) Eosinophils # (Manual) Basophils # (Manual) Metamyelocytes # Myelocytes # Smudge Cells Platelet Estimate Large Platelets Plt Morphology Comment RBC Morphology Polychromasia Hypochromasia Basophilic Stippling Microcytosis Macrocytosis Tear Drop Cells Ovalocytes Acanthocytes (Spur) Schistocytes Smear Tech's Comments Smear Path Review PT INR D-Dimer High Sensitivty Hep-Ind Thrombocytop Com VBG pH VBG pCO2 VBG pO2 VBG HCO3 VBG O2 Saturation VBG Base Excess Sodium Potassium Chloride Carbon Dioxide Anion Gap BUN Creatinine Estim Creat Clear Calc Estimated GFR POC Glucose 181 H 166 H 227 H Random Glucose Fasting Glucose Estimat Average Glucose Hemoglobin A1c % Lactic Acid Calcium Phosphorus Magnesium Ferritin Total Bilirubin Direct Bilirubin AST ALT Alkaline Phosphatase Lactate Dehydrogenase Total Creatine Kinase Troponin I High Sens C-Reactive Protein B-Natriuretic Peptide Total Protein Albumin Procalcitonin Urine Color Urine Appearance Urine pH Ur Specific [place] Urine Protein Urine Glucose (UA) Urine Ketones Urine Blood Urine Nitrite Ur Leukocyte Esterase Urine RBC Urine WBC Ur Squamous Epith Cells Amorphous Sediment Urine Bacteria Hyaline Casts Urine Mucus Urine Osmolality Ur Random Sodium Ur Random Potassium Urine Creatinine Urine Microalbumin Microalb/Creat Ratio Nasal Screen MRSA (PCR) Nasal S. aureus Screen Nasal MRSA/S.aureus Interp Gastric Occult Blood Stool Occult Blood Vancomycin Trough Random Vancomycin Heparin Dep Plt Ab OD Hep-Induced Plt Ab [place] COVID-19 ([facility]) COVID-19 Clin Com Influenza Type A (PCR) Influenza Type B (PCR) L.pneumophila IgM Ab Ur L.pneumophila Ag Pneumocystis Source Pneumocyst jiroveci PCR RSV RNA Qual (PCR) SARS-CoV-2 RNA (RT-PCR) Blood Type Antibody Screen 05/20/21 05/21/21 05/21/21 23:19 05:36 05:38 WBC 9.1 RBC 2.81 L Hgb 7.9 L Hct 25.9 L MCV 92.2 MCH 28.1 MCHC 30.5 L RDW 14.0 Plt Count 179 MPV 12.3 Immature Gran % (Auto) 2.1 H Neut % (Auto) 87.4 H Lymph % (Auto) 7.1 L [place] % (Auto) 3.2 Eos % (Auto) 0.1 Baso % (Auto) 0.1 Lymph # (Auto) 0.7 L [place] # (Auto) 0.3 Eos # (Auto) 0.0 Baso # (Auto) 0.0 Abs Immat Gran (auto) 0.19 H Absolute Neuts (auto) 8.0 Absolute Nucleated RBC 0.000 Nucleated RBC % (auto) 0.0 Neutrophils % (Manual) Band Neutrophils % Lymphocytes % (Manual) Atypical Lymphs % (Man) Monocytes % (Manual) Eosinophils % (Manual) Basophils % (Manual) Metamyelocytes % Myelocytes % Abs Neuts (Manual) Lymphocytes # (Manual) Atyp Lymphs # (Manual) Monocytes # (Manual) Eosinophils # (Manual) Basophils # (Manual) Metamyelocytes # Myelocytes # Smudge Cells Platelet Estimate Large Platelets Plt Morphology Comment RBC Morphology Polychromasia Hypochromasia Basophilic Stippling Microcytosis Macrocytosis Tear Drop Cells Ovalocytes Acanthocytes (Spur) Schistocytes Smear Tech's Comments Smear Path Review PT INR D-Dimer High Sensitivty Hep-Ind Thrombocytop Com VBG pH VBG pCO2 VBG pO2 VBG HCO3 VBG O2 Saturation VBG Base Excess Sodium Potassium Chloride Carbon Dioxide Anion Gap BUN Creatinine Estim Creat Clear Calc Estimated GFR POC Glucose 244 H 169 H Random Glucose Fasting Glucose Estimat Average Glucose Hemoglobin A1c % Lactic Acid Calcium Phosphorus Magnesium Ferritin Total Bilirubin Direct Bilirubin AST ALT Alkaline Phosphatase Lactate Dehydrogenase Total Creatine Kinase Troponin I High Sens C-Reactive Protein B-Natriuretic Peptide Total Protein Albumin Procalcitonin Urine Color Urine Appearance Urine pH Ur Specific [place] Urine Protein Urine Glucose (UA) Urine Ketones Urine Blood Urine Nitrite Ur Leukocyte Esterase Urine RBC Urine WBC Ur Squamous Epith Cells Amorphous Sediment Urine Bacteria Hyaline Casts Urine Mucus Urine Osmolality Ur Random Sodium Ur Random Potassium Urine Creatinine Urine Microalbumin Microalb/Creat Ratio Nasal Screen MRSA (PCR) Nasal S. aureus Screen Nasal MRSA/S.aureus Interp Gastric Occult Blood Stool Occult Blood Vancomycin Trough Random Vancomycin Heparin Dep Plt Ab OD Hep-Induced Plt Ab [place] COVID-19 ([facility]) COVID-19 Clin Com Influenza Type A (PCR) Influenza Type B (PCR) L.pneumophila IgM Ab Ur L.pneumophila Ag Pneumocystis Source Pneumocyst jiroveci PCR RSV RNA Qual (PCR) SARS-CoV-2 RNA (RT-PCR) Blood Type Antibody Screen 05/21/21 05/21/21 05/21/21 05:38 05:38 11:21 WBC RBC Hgb Hct MCV MCH MCHC RDW Plt Count MPV Immature Gran % (Auto) Neut % (Auto) Lymph % (Auto) [place] % (Auto) Eos % (Auto) Baso % (Auto) Lymph # (Auto) [place] # (Auto) Eos # (Auto) Baso # (Auto) Abs Immat Gran (auto) Absolute Neuts (auto) Absolute Nucleated RBC Nucleated RBC % (auto) Neutrophils % (Manual) Band Neutrophils % Lymphocytes % (Manual) Atypical Lymphs % (Man) Monocytes % (Manual) Eosinophils % (Manual) Basophils % (Manual) Metamyelocytes % Myelocytes % Abs Neuts (Manual) Lymphocytes # (Manual) Atyp Lymphs # (Manual) Monocytes # (Manual) Eosinophils # (Manual) Basophils # (Manual) Metamyelocytes # Myelocytes # Smudge Cells Platelet Estimate Large Platelets Plt Morphology Comment RBC Morphology Polychromasia Hypochromasia Basophilic Stippling Microcytosis Macrocytosis Tear Drop Cells Ovalocytes Acanthocytes (Spur) Schistocytes Smear Tech's Comments Smear Path Review PT INR D-Dimer High Sensitivty Hep-Ind Thrombocytop Com VBG pH 7.37 VBG pCO2 51 VBG pO2 59 VBG HCO3 30 H VBG O2 Saturation 87.0 VBG Base Excess 4.2 Sodium 142 Potassium 4.5 Chloride 103 Carbon Dioxide 27 Anion Gap 17 BUN 117 H Creatinine 2.42 H Estim Creat Clear Calc 36.4 Estimated GFR 27 POC Glucose 143 H Random Glucose 195 H Fasting Glucose Estimat Average Glucose Hemoglobin A1c % Lactic Acid Calcium 8.6 Phosphorus 5.8 H Magnesium 2.2 Ferritin Total Bilirubin Direct Bilirubin AST ALT Alkaline Phosphatase Lactate Dehydrogenase Total Creatine Kinase Troponin I High Sens C-Reactive Protein B-Natriuretic Peptide Total Protein Albumin 3.4 L Procalcitonin Urine Color Urine Appearance Urine pH Ur Specific [place] Urine Protein Urine Glucose (UA) Urine Ketones Urine Blood Urine Nitrite Ur Leukocyte Esterase Urine RBC Urine WBC Ur Squamous Epith Cells Amorphous Sediment Urine Bacteria Hyaline Casts Urine Mucus Urine Osmolality Ur Random Sodium Ur Random Potassium Urine Creatinine Urine Microalbumin Microalb/Creat Ratio Nasal Screen MRSA (PCR) Nasal S. aureus Screen Nasal MRSA/S.aureus Interp Gastric Occult Blood Stool Occult Blood Vancomycin Trough Random Vancomycin Heparin Dep Plt Ab OD Hep-Induced Plt Ab [place] COVID-19 ([facility]) COVID-19 Clin Com Influenza Type A (PCR) Influenza Type B (PCR) L.pneumophila IgM Ab Ur L.pneumophila Ag Pneumocystis Source Pneumocyst jiroveci PCR RSV RNA Qual (PCR) SARS-CoV-2 RNA (RT-PCR) Blood Type Antibody Screen 05/21/21 05/21/21 05/22/21 17:41 22:39 05:20 WBC 10.1 RBC 3.06 L Hgb 8.5 L Hct 28.0 L MCV 91.5 MCH 27.8 MCHC 30.4 L RDW 14.0 Plt Count 232 D MPV 12.1 Immature Gran % (Auto) 2.0 H Neut % (Auto) 86.0 H Lymph % (Auto) 7.5 L [place] % (Auto) 3.7 Eos % (Auto) 0.6 Baso % (Auto) 0.2 Lymph # (Auto) 0.8 L [place] # (Auto) 0.4 Eos # (Auto) 0.1 Baso # (Auto) 0.0 Abs Immat Gran (auto) 0.20 H Absolute Neuts (auto) 8.7 H Absolute Nucleated RBC 0.040 H Nucleated RBC % (auto) 0.4 H Neutrophils % (Manual) Band Neutrophils % Lymphocytes % (Manual) Atypical Lymphs % (Man) Monocytes % (Manual) Eosinophils % (Manual) Basophils % (Manual) Metamyelocytes % Myelocytes % Abs Neuts (Manual) Lymphocytes # (Manual) Atyp Lymphs # (Manual) Monocytes # (Manual) Eosinophils # (Manual) Basophils # (Manual) Metamyelocytes # Myelocytes # Smudge Cells Platelet Estimate Large Platelets Plt Morphology Comment RBC Morphology Polychromasia Hypochromasia Basophilic Stippling Microcytosis Macrocytosis Tear Drop Cells Ovalocytes Acanthocytes (Spur) Schistocytes Smear Tech's Comments Smear Path Review PT INR D-Dimer High Sensitivty Hep-Ind Thrombocytop Com VBG pH VBG pCO2 VBG pO2 VBG HCO3 VBG O2 Saturation VBG Base Excess Sodium Potassium Chloride Carbon Dioxide Anion Gap BUN Creatinine Estim Creat Clear Calc Estimated GFR POC Glucose 243 H 225 H Random Glucose Fasting Glucose Estimat Average Glucose Hemoglobin A1c % Lactic Acid Calcium Phosphorus Magnesium Ferritin Total Bilirubin Direct Bilirubin AST ALT Alkaline Phosphatase Lactate Dehydrogenase Total Creatine Kinase Troponin I High Sens C-Reactive Protein B-Natriuretic Peptide Total Protein Albumin Procalcitonin Urine Color Urine Appearance Urine pH Ur Specific [place] Urine Protein Urine Glucose (UA) Urine Ketones Urine Blood Urine Nitrite Ur Leukocyte Esterase Urine RBC Urine WBC Ur Squamous Epith Cells Amorphous Sediment Urine Bacteria Hyaline Casts Urine Mucus Urine Osmolality Ur Random Sodium Ur Random Potassium Urine Creatinine Urine Microalbumin Microalb/Creat Ratio Nasal Screen MRSA (PCR) Nasal S. aureus Screen Nasal MRSA/S.aureus Interp Gastric Occult Blood Stool Occult Blood Vancomycin Trough Random Vancomycin Heparin Dep Plt Ab OD Hep-Induced Plt Ab [place] COVID-19 ([facility]) COVID-19 Clin Com Influenza Type A (PCR) Influenza Type B (PCR) L.pneumophila IgM Ab Ur L.pneumophila Ag Pneumocystis Source Pneumocyst jiroveci PCR RSV RNA Qual (PCR) SARS-CoV-2 RNA (RT-PCR) Blood Type Antibody Screen 05/22/21 05/22/21 05/22/21 05:20 05:22 05:22 WBC RBC Hgb Hct MCV MCH MCHC RDW Plt Count MPV Immature Gran % (Auto) Neut % (Auto) Lymph % (Auto) [place] % (Auto) Eos % (Auto) Baso % (Auto) Lymph # (Auto) [place] # (Auto) Eos # (Auto) Baso # (Auto) Abs Immat Gran (auto) Absolute Neuts (auto) Absolute Nucleated RBC Nucleated RBC % (auto) Neutrophils % (Manual) Band Neutrophils % Lymphocytes % (Manual) Atypical Lymphs % (Man) Monocytes % (Manual) Eosinophils % (Manual) Basophils % (Manual) Metamyelocytes % Myelocytes % Abs Neuts (Manual) Lymphocytes # (Manual) Atyp Lymphs # (Manual) Monocytes # (Manual) Eosinophils # (Manual) Basophils # (Manual) Metamyelocytes # Myelocytes # Smudge Cells Platelet Estimate Large Platelets Plt Morphology Comment RBC Morphology Polychromasia Hypochromasia Basophilic Stippling Microcytosis Macrocytosis Tear Drop Cells Ovalocytes Acanthocytes (Spur) Schistocytes Smear Tech's Comments Smear Path Review PT INR D-Dimer High Sensitivty Hep-Ind Thrombocytop Com VBG pH 7.46 H VBG pCO2 43 VBG pO2 68 VBG HCO3 31 H VBG O2 Saturation 93.0 VBG Base Excess TNP Sodium 142 Potassium 3.7 Chloride 102 Carbon Dioxide 28 Anion Gap 16 BUN 116 H Creatinine 2.19 H Estim Creat Clear Calc 41.1 Estimated GFR 30 POC Glucose 156 H Random Glucose 172 H Fasting Glucose Estimat Average Glucose Hemoglobin A1c % Lactic Acid Calcium 9.2 D Phosphorus 3.3 Magnesium 2.0 Ferritin Total Bilirubin Direct Bilirubin AST ALT Alkaline Phosphatase Lactate Dehydrogenase Total Creatine Kinase Troponin I High Sens C-Reactive Protein B-Natriuretic Peptide Total Protein Albumin 3.3 L Procalcitonin Urine Color Urine Appearance Urine pH Ur Specific [place] Urine Protein Urine Glucose (UA) Urine Ketones Urine Blood Urine Nitrite Ur Leukocyte Esterase Urine RBC Urine WBC Ur Squamous Epith Cells Amorphous Sediment Urine Bacteria Hyaline Casts Urine Mucus Urine Osmolality Ur Random Sodium Ur Random Potassium Urine Creatinine Urine Microalbumin Microalb/Creat Ratio Nasal Screen MRSA (PCR) Nasal S. aureus Screen Nasal MRSA/S.aureus Interp Gastric Occult Blood Stool Occult Blood Vancomycin Trough Random Vancomycin Heparin Dep Plt Ab OD Hep-Induced Plt Ab [place] COVID-19 ([facility]) COVID-19 Clin Com Influenza Type A (PCR) Influenza Type B (PCR) L.pneumophila IgM Ab Ur L.pneumophila Ag Pneumocystis Source Pneumocyst jiroveci PCR RSV RNA Qual (PCR) SARS-CoV-2 RNA (RT-PCR) Blood Type Antibody Screen 05/22/21 05/22/21 05/22/21 11:07 11:32 13:40 WBC RBC Hgb Hct MCV MCH MCHC RDW Plt Count MPV Immature Gran % (Auto) Neut % (Auto) Lymph % (Auto) [place] % (Auto) Eos % (Auto) Baso % (Auto) Lymph # (Auto) [place] # (Auto) Eos # (Auto) Baso # (Auto) Abs Immat Gran (auto) Absolute Neuts (auto) Absolute Nucleated RBC Nucleated RBC % (auto) Neutrophils % (Manual) Band Neutrophils % Lymphocytes % (Manual) Atypical Lymphs % (Man) Monocytes % (Manual) Eosinophils % (Manual) Basophils % (Manual) Metamyelocytes % Myelocytes % Abs Neuts (Manual) Lymphocytes # (Manual) Atyp Lymphs # (Manual) Monocytes # (Manual) Eosinophils # (Manual) Basophils # (Manual) Metamyelocytes # Myelocytes # Smudge Cells Platelet Estimate Large Platelets Plt Morphology Comment RBC Morphology Polychromasia Hypochromasia Basophilic Stippling Microcytosis Macrocytosis Tear Drop Cells Ovalocytes Acanthocytes (Spur) Schistocytes Smear Tech's Comments Smear Path Review PT INR D-Dimer High Sensitivty Hep-Ind Thrombocytop Com VBG pH VBG pCO2 VBG pO2 VBG HCO3 VBG O2 Saturation VBG Base Excess Sodium Potassium Chloride Carbon Dioxide Anion Gap BUN Creatinine Estim Creat Clear Calc Estimated GFR POC Glucose 142 H Random Glucose Fasting Glucose Estimat Average Glucose Hemoglobin A1c % Lactic Acid Calcium Phosphorus Magnesium Ferritin Total Bilirubin Direct Bilirubin AST ALT Alkaline Phosphatase Lactate Dehydrogenase Total Creatine Kinase Troponin I High Sens C-Reactive Protein B-Natriuretic Peptide Total Protein Albumin Procalcitonin Urine Color Urine Appearance Urine pH Ur Specific [place] Urine Protein Urine Glucose (UA) Urine Ketones Urine Blood Urine Nitrite Ur Leukocyte Esterase Urine RBC Urine WBC Ur Squamous Epith Cells Amorphous Sediment Urine Bacteria Hyaline Casts Urine Mucus Urine Osmolality Ur Random Sodium Ur Random Potassium Urine Creatinine Urine Microalbumin Microalb/Creat Ratio Nasal Screen MRSA (PCR) SEE COMMENT POSITIVE A Nasal S. aureus Screen TNP POSITIVE A Nasal MRSA/S.aureus Interp TNP SEE NOTE Gastric Occult Blood Stool Occult Blood Vancomycin Trough Random Vancomycin Heparin Dep Plt Ab OD Hep-Induced Plt Ab [place] COVID-19 ([facility]) COVID-19 Clin Com Influenza Type A (PCR) Influenza Type B (PCR) L.pneumophila IgM Ab Ur L.pneumophila Ag Pneumocystis Source Pneumocyst jiroveci PCR RSV RNA Qual (PCR) SARS-CoV-2 RNA (RT-PCR) Blood Type Antibody Screen 05/22/21 05/22/21 05/23/21 18:05 23:32 05:18 WBC 8.4 RBC 3.00 L Hgb 8.4 L Hct 27.3 L MCV 91.0 MCH 28.0 MCHC 30.8 L RDW 14.1 Plt Count 250 MPV 12.3 Immature Gran % (Auto) 4.4 H Neut % (Auto) 79.9 H Lymph % (Auto) 10.2 L [place] % (Auto) 4.7 Eos % (Auto) 0.7 Baso % (Auto) 0.1 Lymph # (Auto) 0.9 L [place] # (Auto) 0.4 Eos # (Auto) 0.1 Baso # (Auto) 0.0 Abs Immat Gran (auto) 0.37 H Absolute Neuts (auto) 6.7 Absolute Nucleated RBC 0.050 H Nucleated RBC % (auto) 0.6 H Neutrophils % (Manual) Band Neutrophils % Lymphocytes % (Manual) Atypical Lymphs % (Man) Monocytes % (Manual) Eosinophils % (Manual) Basophils % (Manual) Metamyelocytes % Myelocytes % Abs Neuts (Manual) Lymphocytes # (Manual) Atyp Lymphs # (Manual) Monocytes # (Manual) Eosinophils # (Manual) Basophils # (Manual) Metamyelocytes # Myelocytes # Smudge Cells Platelet Estimate Large Platelets Plt Morphology Comment RBC Morphology Polychromasia Hypochromasia Basophilic Stippling Microcytosis Macrocytosis Tear Drop Cells Ovalocytes Acanthocytes (Spur) Schistocytes Smear Tech's Comments Smear Path Review PT INR D-Dimer High Sensitivty Hep-Ind Thrombocytop Com VBG pH VBG pCO2 VBG pO2 VBG HCO3 VBG O2 Saturation VBG Base Excess Sodium Potassium Chloride Carbon Dioxide Anion Gap BUN Creatinine Estim Creat Clear Calc Estimated GFR POC Glucose 291 H 267 H Random Glucose Fasting Glucose Estimat Average Glucose Hemoglobin A1c % Lactic Acid Calcium Phosphorus Magnesium Ferritin Total Bilirubin Direct Bilirubin AST ALT Alkaline Phosphatase Lactate Dehydrogenase Total Creatine Kinase Troponin I High Sens C-Reactive Protein B-Natriuretic Peptide Total Protein Albumin Procalcitonin Urine Color Urine Appearance Urine pH Ur Specific [place] Urine Protein Urine Glucose (UA) Urine Ketones Urine Blood Urine Nitrite Ur Leukocyte Esterase Urine RBC Urine WBC Ur Squamous Epith Cells Amorphous Sediment Urine Bacteria Hyaline Casts Urine Mucus Urine Osmolality Ur Random Sodium Ur Random Potassium Urine Creatinine Urine Microalbumin Microalb/Creat Ratio Nasal Screen MRSA (PCR) Nasal S. aureus Screen Nasal MRSA/S.aureus Interp Gastric Occult Blood Stool Occult Blood Vancomycin Trough Random Vancomycin Heparin Dep Plt Ab OD Hep-Induced Plt Ab [place] COVID-19 ([facility]) COVID-19 Clin Com Influenza Type A (PCR) Influenza Type B (PCR) L.pneumophila IgM Ab Ur L.pneumophila Ag Pneumocystis Source Pneumocyst jiroveci PCR RSV RNA Qual (PCR) SARS-CoV-2 RNA (RT-PCR) Blood Type Antibody Screen 05/23/21 05/23/21 05/23/21 05:18 05:29 05:41 WBC RBC Hgb Hct MCV MCH MCHC RDW Plt Count MPV Immature Gran % (Auto) Neut % (Auto) Lymph % (Auto) [place] % (Auto) Eos % (Auto) Baso % (Auto) Lymph # (Auto) [place] # (Auto) Eos # (Auto) Baso # (Auto) Abs Immat Gran (auto) Absolute Neuts (auto) Absolute Nucleated RBC Nucleated RBC % (auto) Neutrophils % (Manual) Band Neutrophils % Lymphocytes % (Manual) Atypical Lymphs % (Man) Monocytes % (Manual) Eosinophils % (Manual) Basophils % (Manual) Metamyelocytes % Myelocytes % Abs Neuts (Manual) Lymphocytes # (Manual) Atyp Lymphs # (Manual) Monocytes # (Manual) Eosinophils # (Manual) Basophils # (Manual) Metamyelocytes # Myelocytes # Smudge Cells Platelet Estimate Large Platelets Plt Morphology Comment RBC Morphology Polychromasia Hypochromasia Basophilic Stippling Microcytosis Macrocytosis Tear Drop Cells Ovalocytes Acanthocytes (Spur) Schistocytes Smear Tech's Comments Smear Path Review PT INR D-Dimer High Sensitivty Hep-Ind Thrombocytop Com VBG pH 7.40 VBG pCO2 52 VBG pO2 59 VBG HCO3 32 H VBG O2 Saturation 87.0 VBG Base Excess 7.0 Sodium 144 Potassium 3.8 Chloride 104 Carbon Dioxide 28 Anion Gap 16 BUN 132 H Creatinine 2.09 H Estim Creat Clear Calc 43.4 Estimated GFR 32 POC Glucose 209 H Random Glucose 235 H D Fasting Glucose Estimat Average Glucose Hemoglobin A1c % Lactic Acid Calcium 9.4 Phosphorus Magnesium Ferritin Total Bilirubin 0.7 Direct Bilirubin AST 23 ALT 62 H Alkaline Phosphatase 52 Lactate Dehydrogenase Total Creatine Kinase Troponin I High Sens C-Reactive Protein B-Natriuretic Peptide Total Protein 5.8 L Albumin 3.1 L Procalcitonin Urine Color Urine Appearance Urine pH Ur Specific [place] Urine Protein Urine Glucose (UA) Urine Ketones Urine Blood Urine Nitrite Ur Leukocyte Esterase Urine RBC Urine WBC Ur Squamous Epith Cells Amorphous Sediment Urine Bacteria Hyaline Casts Urine Mucus Urine Osmolality Ur Random Sodium Ur Random Potassium Urine Creatinine Urine Microalbumin Microalb/Creat Ratio Nasal Screen MRSA (PCR) Nasal S. aureus Screen Nasal MRSA/S.aureus Interp Gastric Occult Blood Stool Occult Blood Vancomycin Trough Random Vancomycin Heparin Dep Plt Ab OD Hep-Induced Plt Ab [place] COVID-19 ([facility]) COVID-19 Clin Com Influenza Type A (PCR) Influenza Type B (PCR) L.pneumophila IgM Ab Ur L.pneumophila Ag Pneumocystis Source Pneumocyst jiroveci PCR RSV RNA Qual (PCR) SARS-CoV-2 RNA (RT-PCR) Blood Type Antibody Screen 05/23/21 05/23/21 05/23/21 11:32 17:19 23:03 WBC RBC Hgb Hct MCV MCH MCHC RDW Plt Count MPV Immature Gran % (Auto) Neut % (Auto) Lymph % (Auto) [place] % (Auto) Eos % (Auto) Baso % (Auto) Lymph # (Auto) [place] # (Auto) Eos # (Auto) Baso # (Auto) Abs Immat Gran (auto) Absolute Neuts (auto) Absolute Nucleated RBC Nucleated RBC % (auto) Neutrophils % (Manual) Band Neutrophils % Lymphocytes % (Manual) Atypical Lymphs % (Man) Monocytes % (Manual) Eosinophils % (Manual) Basophils % (Manual) Metamyelocytes % Myelocytes % Abs Neuts (Manual) Lymphocytes # (Manual) Atyp Lymphs # (Manual) Monocytes # (Manual) Eosinophils # (Manual) Basophils # (Manual) Metamyelocytes # Myelocytes # Smudge Cells Platelet Estimate Large Platelets Plt Morphology Comment RBC Morphology Polychromasia Hypochromasia Basophilic Stippling Microcytosis Macrocytosis Tear Drop Cells Ovalocytes Acanthocytes (Spur) Schistocytes Smear Tech's Comments Smear Path Review PT INR D-Dimer High Sensitivty Hep-Ind Thrombocytop Com VBG pH VBG pCO2 VBG pO2 VBG HCO3 VBG O2 Saturation VBG Base Excess Sodium Potassium Chloride Carbon Dioxide Anion Gap BUN Creatinine Estim Creat Clear Calc Estimated GFR POC Glucose 187 H 278 H 230 H Random Glucose Fasting Glucose Estimat Average Glucose Hemoglobin A1c % Lactic Acid Calcium Phosphorus Magnesium Ferritin Total Bilirubin Direct Bilirubin AST ALT Alkaline Phosphatase Lactate Dehydrogenase Total Creatine Kinase Troponin I High Sens C-Reactive Protein B-Natriuretic Peptide Total Protein Albumin Procalcitonin Urine Color Urine Appearance Urine pH Ur Specific [place] Urine Protein Urine Glucose (UA) Urine Ketones Urine Blood Urine Nitrite Ur Leukocyte Esterase Urine RBC Urine WBC Ur Squamous Epith Cells Amorphous Sediment Urine Bacteria Hyaline Casts Urine Mucus Urine Osmolality Ur Random Sodium Ur Random Potassium Urine Creatinine Urine Microalbumin Microalb/Creat Ratio Nasal Screen MRSA (PCR) Nasal S. aureus Screen Nasal MRSA/S.aureus Interp Gastric Occult Blood Stool Occult Blood Vancomycin Trough Random Vancomycin Heparin Dep Plt Ab OD Hep-Induced Plt Ab [place] COVID-19 ([facility]) COVID-19 Clin Com Influenza Type A (PCR) Influenza Type B (PCR) L.pneumophila IgM Ab Ur L.pneumophila Ag Pneumocystis Source Pneumocyst jiroveci PCR RSV RNA Qual (PCR) SARS-CoV-2 RNA (RT-PCR) Blood Type Antibody Screen 05/24/21 05/24/21 05/24/21 01:02 05:15 05:15 WBC 9.1 RBC 2.97 L Hgb 8.6 L Hct 27.4 L MCV 92.3 MCH 29.0 MCHC 31.4 RDW 14.4 Plt Count 271 MPV 12.0 Immature Gran % (Auto) Cancelled Neut % (Auto) Cancelled Lymph % (Auto) Cancelled [place] % (Auto) Cancelled Eos % (Auto) Cancelled Baso % (Auto) Cancelled Lymph # (Auto) Cancelled [place] # (Auto) Cancelled Eos # (Auto) Cancelled Baso # (Auto) Cancelled Abs Immat Gran (auto) Cancelled Absolute Neuts (auto) Cancelled Absolute Nucleated RBC 0.040 H Nucleated RBC % (auto) 0.4 H Neutrophils % (Manual) 78 H Band Neutrophils % 12 H Lymphocytes % (Manual) 5 L Atypical Lymphs % (Man) Monocytes % (Manual) 5 Eosinophils % (Manual) Basophils % (Manual) Metamyelocytes % Myelocytes % Abs Neuts (Manual) 8.2 Lymphocytes # (Manual) 0.5 L Atyp Lymphs # (Manual) Monocytes # (Manual) 0.5 Eosinophils # (Manual) Basophils # (Manual) Metamyelocytes # Myelocytes # Smudge Cells Platelet Estimate NORMAL Large Platelets Plt Morphology Comment NORMAL RBC Morphology NOTED Polychromasia Hypochromasia 1+ (5-14) Basophilic Stippling Microcytosis Macrocytosis 1+ (5-14) Tear Drop Cells Ovalocytes 1+ (5-14) Acanthocytes (Spur) 1+ (0-2) Schistocytes Smear Tech's Comments Smear Path Review PT INR D-Dimer High Sensitivty Hep-Ind Thrombocytop Com VBG pH VBG pCO2 VBG pO2 VBG HCO3 VBG O2 Saturation VBG Base Excess Sodium 145 Potassium 4.0 Chloride 107 Carbon Dioxide 27 Anion Gap 15 BUN 133 H Creatinine 1.74 H Estim Creat Clear Calc 51.8 Estimated GFR 39 POC Glucose 215 H Random Glucose 250 H Fasting Glucose Estimat Average Glucose Hemoglobin A1c % Lactic Acid Calcium 9.4 Phosphorus Magnesium Ferritin Total Bilirubin 0.6 Direct Bilirubin AST 23 ALT 52 H Alkaline Phosphatase 48 Lactate Dehydrogenase Total Creatine Kinase Troponin I High Sens C-Reactive Protein B-Natriuretic Peptide Total Protein 5.6 L Albumin 2.9 L Procalcitonin Urine Color Urine Appearance Urine pH Ur Specific [place] Urine Protein Urine Glucose (UA) Urine Ketones Urine Blood Urine Nitrite Ur Leukocyte Esterase Urine RBC Urine WBC Ur Squamous Epith Cells Amorphous Sediment Urine Bacteria Hyaline Casts Urine Mucus Urine Osmolality Ur Random Sodium Ur Random Potassium Urine Creatinine Urine Microalbumin Microalb/Creat Ratio Nasal Screen MRSA (PCR) Nasal S. aureus Screen Nasal MRSA/S.aureus Interp Gastric Occult Blood Stool Occult Blood Vancomycin Trough Random Vancomycin Heparin Dep Plt Ab OD Hep-Induced Plt Ab [place] COVID-19 ([facility]) COVID-19 Clin Com Influenza Type A (PCR) Influenza Type B (PCR) L.pneumophila IgM Ab Ur L.pneumophila Ag Pneumocystis Source Pneumocyst jiroveci PCR RSV RNA Qual (PCR) SARS-CoV-2 RNA (RT-PCR) Blood Type Antibody Screen 05/24/21 05/24/21 05/24/21 05:15 06:29 07:47 WBC RBC Hgb Hct MCV MCH MCHC RDW Plt Count MPV Immature Gran % (Auto) Neut % (Auto) Lymph % (Auto) [place] % (Auto) Eos % (Auto) Baso % (Auto) Lymph # (Auto) [place] # (Auto) Eos # (Auto) Baso # (Auto) Abs Immat Gran (auto) Absolute Neuts (auto) Absolute Nucleated RBC Nucleated RBC % (auto) Neutrophils % (Manual) Band Neutrophils % Lymphocytes % (Manual) Atypical Lymphs % (Man) Monocytes % (Manual) Eosinophils % (Manual) Basophils % (Manual) Metamyelocytes % Myelocytes % Abs Neuts (Manual) Lymphocytes # (Manual) Atyp Lymphs # (Manual) Monocytes # (Manual) Eosinophils # (Manual) Basophils # (Manual) Metamyelocytes # Myelocytes # Smudge Cells Platelet Estimate Large Platelets Plt Morphology Comment RBC Morphology Polychromasia Hypochromasia Basophilic Stippling Microcytosis Macrocytosis Tear Drop Cells Ovalocytes Acanthocytes (Spur) Schistocytes Smear Tech's Comments Smear Path Review PT INR D-Dimer High Sensitivty Hep-Ind Thrombocytop Com VBG pH 7.43 VBG pCO2 49 VBG pO2 47 VBG HCO3 32 H VBG O2 Saturation 77.0 VBG Base Excess 7.7 Sodium Potassium Chloride Carbon Dioxide Anion Gap BUN Creatinine Estim Creat Clear Calc Estimated GFR POC Glucose 231 H Random Glucose Fasting Glucose Estimat Average Glucose Hemoglobin A1c % Lactic Acid Calcium Phosphorus Magnesium Ferritin Total Bilirubin Direct Bilirubin AST ALT Alkaline Phosphatase Lactate Dehydrogenase Total Creatine Kinase Troponin I High Sens C-Reactive Protein B-Natriuretic Peptide Total Protein Albumin Procalcitonin Urine Color Urine Appearance Urine pH Ur Specific [place] Urine Protein Urine Glucose (UA) Urine Ketones Urine Blood Urine Nitrite Ur Leukocyte Esterase Urine RBC Urine WBC Ur Squamous Epith Cells Amorphous Sediment Urine Bacteria Hyaline Casts Urine Mucus Urine Osmolality Ur Random Sodium Ur Random Potassium Urine Creatinine Urine Microalbumin Microalb/Creat Ratio Nasal Screen MRSA (PCR) Nasal S. aureus Screen Nasal MRSA/S.aureus Interp Gastric Occult Blood Stool Occult Blood Vancomycin Trough Random Vancomycin 17.2 Heparin Dep Plt Ab OD Hep-Induced Plt Ab [place] COVID-19 ([facility]) COVID-19 Clin Com Influenza Type A (PCR) Influenza Type B (PCR) L.pneumophila IgM Ab Ur L.pneumophila Ag Pneumocystis Source Pneumocyst jiroveci PCR RSV RNA Qual (PCR) SARS-CoV-2 RNA (RT-PCR) Blood Type Antibody Screen 05/24/21 05/24/21 05/24/21 09:30 11:26 11:59 WBC RBC Hgb Hct MCV MCH MCHC RDW Plt Count MPV Immature Gran % (Auto) Neut % (Auto) Lymph % (Auto) [place] % (Auto) Eos % (Auto) Baso % (Auto) Lymph # (Auto) [place] # (Auto) Eos # (Auto) Baso # (Auto) Abs Immat Gran (auto) Absolute Neuts (auto) Absolute Nucleated RBC Nucleated RBC % (auto) Neutrophils % (Manual) Band Neutrophils % Lymphocytes % (Manual) Atypical Lymphs % (Man) Monocytes % (Manual) Eosinophils % (Manual) Basophils % (Manual) Metamyelocytes % Myelocytes % Abs Neuts (Manual) Lymphocytes # (Manual) Atyp Lymphs # (Manual) Monocytes # (Manual) Eosinophils # (Manual) Basophils # (Manual) Metamyelocytes # Myelocytes # Smudge Cells Platelet Estimate Large Platelets Plt Morphology Comment RBC Morphology Polychromasia Hypochromasia Basophilic Stippling Microcytosis Macrocytosis Tear Drop Cells Ovalocytes Acanthocytes (Spur) Schistocytes Smear Tech's Comments Smear Path Review PT INR D-Dimer High Sensitivty Hep-Ind Thrombocytop Com VBG pH VBG pCO2 VBG pO2 VBG HCO3 VBG O2 Saturation VBG Base Excess Sodium Potassium Chloride Carbon Dioxide Anion Gap BUN Creatinine Estim Creat Clear Calc Estimated GFR POC Glucose 204 H Random Glucose Fasting Glucose Estimat Average Glucose Hemoglobin A1c % Lactic Acid Calcium Phosphorus Magnesium Ferritin Total Bilirubin Direct Bilirubin AST ALT Alkaline Phosphatase Lactate Dehydrogenase Total Creatine Kinase Troponin I High Sens C-Reactive Protein B-Natriuretic Peptide Total Protein Albumin Procalcitonin Urine Color Urine Appearance Urine pH Ur Specific [place] Urine Protein Urine Glucose (UA) Urine Ketones Urine Blood Urine Nitrite Ur Leukocyte Esterase Urine RBC Urine WBC Ur Squamous Epith Cells Amorphous Sediment Urine Bacteria Hyaline Casts Urine Mucus Urine Osmolality Ur Random Sodium Ur Random Potassium Urine Creatinine Urine Microalbumin Microalb/Creat Ratio Nasal Screen MRSA (PCR) Nasal S. aureus Screen Nasal MRSA/S.aureus Interp Gastric Occult Blood Stool Occult Blood Vancomycin Trough Random Vancomycin Heparin Dep Plt Ab OD Hep-Induced Plt Ab [place] COVID-19 ([facility]) COVID-19 Clin Com Influenza Type A (PCR) Influenza Type B (PCR) L.pneumophila IgM Ab <1:256 Ur L.pneumophila Ag Pneumocystis Source SPUTUM Pneumocyst jiroveci PCR NOT DETECTED RSV RNA Qual (PCR) SARS-CoV-2 RNA (RT-PCR) Blood Type Antibody Screen 05/24/21 05/24/21 05/24/21 11:59 17:39 23:36 WBC RBC Hgb Hct MCV MCH MCHC RDW Plt Count MPV Immature Gran % (Auto) Neut % (Auto) Lymph % (Auto) [place] % (Auto) Eos % (Auto) Baso % (Auto) Lymph # (Auto) [place] # (Auto) Eos # (Auto) Baso # (Auto) Abs Immat Gran (auto) Absolute Neuts (auto) Absolute Nucleated RBC Nucleated RBC % (auto) Neutrophils % (Manual) Band Neutrophils % Lymphocytes % (Manual) Atypical Lymphs % (Man) Monocytes % (Manual) Eosinophils % (Manual) Basophils % (Manual) Metamyelocytes % Myelocytes % Abs Neuts (Manual) Lymphocytes # (Manual) Atyp Lymphs # (Manual) Monocytes # (Manual) Eosinophils # (Manual) Basophils # (Manual) Metamyelocytes # Myelocytes # Smudge Cells Platelet Estimate Large Platelets Plt Morphology Comment RBC Morphology Polychromasia Hypochromasia Basophilic Stippling Microcytosis Macrocytosis Tear Drop Cells Ovalocytes Acanthocytes (Spur) Schistocytes Smear Tech's Comments Smear Path Review PT INR D-Dimer High Sensitivty Hep-Ind Thrombocytop Com VBG pH VBG pCO2 VBG pO2 VBG HCO3 VBG O2 Saturation VBG Base Excess Sodium Potassium Chloride Carbon Dioxide Anion Gap BUN Creatinine Estim Creat Clear Calc Estimated GFR POC Glucose 269 H 285 H Random Glucose Fasting Glucose Estimat Average Glucose Hemoglobin A1c % Lactic Acid Calcium Phosphorus Magnesium Ferritin Total Bilirubin Direct Bilirubin AST ALT Alkaline Phosphatase Lactate Dehydrogenase Total Creatine Kinase Troponin I High Sens C-Reactive Protein B-Natriuretic Peptide Total Protein Albumin Procalcitonin Urine Color Urine Appearance Urine pH Ur Specific [place] Urine Protein Urine Glucose (UA) Urine Ketones Urine Blood Urine Nitrite Ur Leukocyte Esterase Urine RBC Urine WBC Ur Squamous Epith Cells Amorphous Sediment Urine Bacteria Hyaline Casts Urine Mucus Urine Osmolality Ur Random Sodium Ur Random Potassium Urine Creatinine Urine Microalbumin Microalb/Creat Ratio Nasal Screen MRSA (PCR) Nasal S. aureus Screen Nasal MRSA/S.aureus Interp Gastric Occult Blood Stool Occult Blood Vancomycin Trough Random Vancomycin Heparin Dep Plt Ab OD Hep-Induced Plt Ab [place] COVID-19 ([facility]) COVID-19 Clin Com Influenza Type A (PCR) Influenza Type B (PCR) L.pneumophila IgM Ab Ur L.pneumophila Ag Not Detected Pneumocystis Source Pneumocyst jiroveci PCR RSV RNA Qual (PCR) SARS-CoV-2 RNA (RT-PCR) Blood Type Antibody Screen 05/25/21 05/25/21 05/25/21 05:19 05:25 05:25 WBC 8.8 RBC 2.93 L Hgb 8.3 L Hct 26.9 L MCV 91.8 MCH 28.3 MCHC 30.9 L RDW 14.7 Plt Count 286 MPV 11.7 Immature Gran % (Auto) Cancelled Neut % (Auto) Cancelled Lymph % (Auto) Cancelled [place] % (Auto) Cancelled Eos % (Auto) Cancelled Baso % (Auto) Cancelled Lymph # (Auto) Cancelled [place] # (Auto) Cancelled Eos # (Auto) Cancelled Baso # (Auto) Cancelled Abs Immat Gran (auto) Cancelled Absolute Neuts (auto) Cancelled Absolute Nucleated RBC 0.060 H Nucleated RBC % (auto) 0.7 H Neutrophils % (Manual) 64 Band Neutrophils % 8 H Lymphocytes % (Manual) 13 L Atypical Lymphs % (Man) Monocytes % (Manual) 6 Eosinophils % (Manual) 1 Basophils % (Manual) Metamyelocytes % 7 Myelocytes % 1 Abs Neuts (Manual) 6.3 Lymphocytes # (Manual) 1.1 L Atyp Lymphs # (Manual) Monocytes # (Manual) 0.5 Eosinophils # (Manual) 0.1 Basophils # (Manual) Metamyelocytes # 0.6 Myelocytes # 0.1 Smudge Cells Platelet Estimate NORMAL Large Platelets Plt Morphology Comment NORMAL RBC Morphology NOTED Polychromasia 1+ (0-2) Hypochromasia 1+ (5-14) Basophilic Stippling Microcytosis Macrocytosis Tear Drop Cells Ovalocytes 1+ (5-14) Acanthocytes (Spur) Schistocytes 1+ (0-2) Smear Tech's Comments Smear Path Review PT INR D-Dimer High Sensitivty Hep-Ind Thrombocytop Com VBG pH VBG pCO2 VBG pO2 VBG HCO3 VBG O2 Saturation VBG Base Excess Sodium 143 Potassium 4.4 Chloride 108 Carbon Dioxide 26 Anion Gap 13 BUN 118 H Creatinine 1.93 H Estim Creat Clear Calc 46.7 Estimated GFR 35 POC Glucose 280 H Random Glucose 320 H Fasting Glucose Estimat Average Glucose Hemoglobin A1c % Lactic Acid Calcium 9.3 Phosphorus Magnesium Ferritin Total Bilirubin 0.4 Direct Bilirubin AST 16 ALT 40 Alkaline Phosphatase 47 Lactate Dehydrogenase Total Creatine Kinase Troponin I High Sens C-Reactive Protein 2.23 H B-Natriuretic Peptide Total Protein 5.6 L Albumin 2.9 L Procalcitonin Urine Color Urine Appearance Urine pH Ur Specific [place] Urine Protein Urine Glucose (UA) Urine Ketones Urine Blood Urine Nitrite Ur Leukocyte Esterase Urine RBC Urine WBC Ur Squamous Epith Cells Amorphous Sediment Urine Bacteria Hyaline Casts Urine Mucus Urine Osmolality Ur Random Sodium Ur Random Potassium Urine Creatinine Urine Microalbumin Microalb/Creat Ratio Nasal Screen MRSA (PCR) Nasal S. aureus Screen Nasal MRSA/S.aureus Interp Gastric Occult Blood Stool Occult Blood Vancomycin Trough Random Vancomycin Heparin Dep Plt Ab OD Hep-Induced Plt Ab [place] COVID-19 ([facility]) COVID-19 Clin Com Influenza Type A (PCR) Influenza Type B (PCR) L.pneumophila IgM Ab Ur L.pneumophila Ag Pneumocystis Source Pneumocyst jiroveci PCR RSV RNA Qual (PCR) SARS-CoV-2 RNA (RT-PCR) Blood Type Antibody Screen 05/25/21 05/25/21 05/25/21 05:27 11:52 17:43 WBC RBC Hgb Hct MCV MCH MCHC RDW Plt Count MPV Immature Gran % (Auto) Neut % (Auto) Lymph % (Auto) [place] % (Auto) Eos % (Auto) Baso % (Auto) Lymph # (Auto) [place] # (Auto) Eos # (Auto) Baso # (Auto) Abs Immat Gran (auto) Absolute Neuts (auto) Absolute Nucleated RBC Nucleated RBC % (auto) Neutrophils % (Manual) Band Neutrophils % Lymphocytes % (Manual) Atypical Lymphs % (Man) Monocytes % (Manual) Eosinophils % (Manual) Basophils % (Manual) Metamyelocytes % Myelocytes % Abs Neuts (Manual) Lymphocytes # (Manual) Atyp Lymphs # (Manual) Monocytes # (Manual) Eosinophils # (Manual) Basophils # (Manual) Metamyelocytes # Myelocytes # Smudge Cells Platelet Estimate Large Platelets Plt Morphology Comment RBC Morphology Polychromasia Hypochromasia Basophilic Stippling Microcytosis Macrocytosis Tear Drop Cells Ovalocytes Acanthocytes (Spur) Schistocytes Smear Tech's Comments Smear Path Review PT INR D-Dimer High Sensitivty Hep-Ind Thrombocytop Com VBG pH 7.39 VBG pCO2 46 VBG pO2 64 VBG HCO3 28 H VBG O2 Saturation 89.0 VBG Base Excess 3.2 Sodium Potassium Chloride Carbon Dioxide Anion Gap BUN Creatinine Estim Creat Clear Calc Estimated GFR POC Glucose 274 H 360 H* Random Glucose Fasting Glucose Estimat Average Glucose Hemoglobin A1c % Lactic Acid Calcium Phosphorus Magnesium Ferritin Total Bilirubin Direct Bilirubin AST ALT Alkaline Phosphatase Lactate Dehydrogenase Total Creatine Kinase Troponin I High Sens C-Reactive Protein B-Natriuretic Peptide Total Protein Albumin Procalcitonin Urine Color Urine Appearance Urine pH Ur Specific [place] Urine Protein Urine Glucose (UA) Urine Ketones Urine Blood Urine Nitrite Ur Leukocyte Esterase Urine RBC Urine WBC Ur Squamous Epith Cells Amorphous Sediment Urine Bacteria Hyaline Casts Urine Mucus Urine Osmolality Ur Random Sodium Ur Random Potassium Urine Creatinine Urine Microalbumin Microalb/Creat Ratio Nasal Screen MRSA (PCR) Nasal S. aureus Screen Nasal MRSA/S.aureus Interp Gastric Occult Blood Stool Occult Blood Vancomycin Trough Random Vancomycin Heparin Dep Plt Ab OD Hep-Induced Plt Ab [place] COVID-19 ([facility]) COVID-19 Clin Com Influenza Type A (PCR) Influenza Type B (PCR) L.pneumophila IgM Ab Ur L.pneumophila Ag Pneumocystis Source Pneumocyst jiroveci PCR RSV RNA Qual (PCR) SARS-CoV-2 RNA (RT-PCR) Blood Type Antibody Screen 05/25/21 05/26/21 05/26/21 23:38 05:15 05:20 WBC 10.6 RBC 2.97 L Hgb 8.3 L Hct 27.3 L MCV 91.9 MCH 27.9 MCHC 30.4 L RDW 15.0 Plt Count 299 MPV 11.9 Immature Gran % (Auto) Cancelled Neut % (Auto) Cancelled Lymph % (Auto) Cancelled [place] % (Auto) Cancelled Eos % (Auto) Cancelled Baso % (Auto) Cancelled Lymph # (Auto) Cancelled [place] # (Auto) Cancelled Eos # (Auto) Cancelled Baso # (Auto) Cancelled Abs Immat Gran (auto) Cancelled Absolute Neuts (auto) Cancelled Absolute Nucleated RBC 0.100 H Nucleated RBC % (auto) 0.9 H Neutrophils % (Manual) 83 H Band Neutrophils % 6 H Lymphocytes % (Manual) 4 L Atypical Lymphs % (Man) 1 Monocytes % (Manual) 3 Eosinophils % (Manual) Basophils % (Manual) Metamyelocytes % 3 Myelocytes % Abs Neuts (Manual) 9.4 H Lymphocytes # (Manual) 0.4 L Atyp Lymphs # (Manual) 0.1 Monocytes # (Manual) 0.3 Eosinophils # (Manual) Basophils # (Manual) Metamyelocytes # 0.3 Myelocytes # Smudge Cells Platelet Estimate NORMAL Large Platelets PRESENT Plt Morphology Comment NOTED RBC Morphology NOTED Polychromasia 2+ (3-5) Hypochromasia Basophilic Stippling 1+ (0-2) Microcytosis Macrocytosis Tear Drop Cells Ovalocytes Acanthocytes (Spur) Schistocytes Smear Tech's Comments Smear Path Review PT INR D-Dimer High Sensitivty Hep-Ind Thrombocytop Com VBG pH VBG pCO2 VBG pO2 VBG HCO3 VBG O2 Saturation VBG Base Excess Sodium Potassium Chloride Carbon Dioxide Anion Gap BUN Creatinine Estim Creat Clear Calc Estimated GFR POC Glucose 232 H 224 H Random Glucose Fasting Glucose Estimat Average Glucose Hemoglobin A1c % Lactic Acid Calcium Phosphorus Magnesium Ferritin Total Bilirubin Direct Bilirubin AST ALT Alkaline Phosphatase Lactate Dehydrogenase Total Creatine Kinase Troponin I High Sens C-Reactive Protein B-Natriuretic Peptide Total Protein Albumin Procalcitonin Urine Color Urine Appearance Urine pH Ur Specific [place] Urine Protein Urine Glucose (UA) Urine Ketones Urine Blood Urine Nitrite Ur Leukocyte Esterase Urine RBC Urine WBC Ur Squamous Epith Cells Amorphous Sediment Urine Bacteria Hyaline Casts Urine Mucus Urine Osmolality Ur Random Sodium Ur Random Potassium Urine Creatinine Urine Microalbumin Microalb/Creat Ratio Nasal Screen MRSA (PCR) Nasal S. aureus Screen Nasal MRSA/S.aureus Interp Gastric Occult Blood Stool Occult Blood Vancomycin Trough Random Vancomycin Heparin Dep Plt Ab OD Hep-Induced Plt Ab [place] COVID-19 ([facility]) COVID-19 Clin Com Influenza Type A (PCR) Influenza Type B (PCR) L.pneumophila IgM Ab Ur L.pneumophila Ag Pneumocystis Source Pneumocyst jiroveci PCR RSV RNA Qual (PCR) SARS-CoV-2 RNA (RT-PCR) Blood Type Antibody Screen 05/26/21 05/26/21 05/26/21 05:20 05:25 10:45 WBC RBC Hgb Hct MCV MCH MCHC RDW Plt Count MPV Immature Gran % (Auto) Neut % (Auto) Lymph % (Auto) [place] % (Auto) Eos % (Auto) Baso % (Auto) Lymph # (Auto) [place] # (Auto) Eos # (Auto) Baso # (Auto) Abs Immat Gran (auto) Absolute Neuts (auto) Absolute Nucleated RBC Nucleated RBC % (auto) Neutrophils % (Manual) Band Neutrophils % Lymphocytes % (Manual) Atypical Lymphs % (Man) Monocytes % (Manual) Eosinophils % (Manual) Basophils % (Manual) Metamyelocytes % Myelocytes % Abs Neuts (Manual) Lymphocytes # (Manual) Atyp Lymphs # (Manual) Monocytes # (Manual) Eosinophils # (Manual) Basophils # (Manual) Metamyelocytes # Myelocytes # Smudge Cells Platelet Estimate Large Platelets Plt Morphology Comment RBC Morphology Polychromasia Hypochromasia Basophilic Stippling Microcytosis Macrocytosis Tear Drop Cells Ovalocytes Acanthocytes (Spur) Schistocytes Smear Tech's Comments Smear Path Review PT INR D-Dimer High Sensitivty Hep-Ind Thrombocytop Com VBG pH 7.36 VBG pCO2 45 VBG pO2 61 VBG HCO3 26 VBG O2 Saturation 88.0 VBG Base Excess 1.1 Sodium 141 Potassium 4.7 Chloride 106 Carbon Dioxide 25 Anion Gap 15 BUN 115 H Creatinine 2.22 H Estim Creat Clear Calc 40.8 Estimated GFR 30 POC Glucose Random Glucose 226 H Fasting Glucose Estimat Average Glucose Hemoglobin A1c % Lactic Acid Calcium 9.2 Phosphorus Magnesium Ferritin Total Bilirubin 0.4 Direct Bilirubin AST 21 ALT 39 Alkaline Phosphatase 45 Lactate Dehydrogenase Total Creatine Kinase Troponin I High Sens C-Reactive Protein B-Natriuretic Peptide Total Protein 5.8 L Albumin 2.9 L Procalcitonin Urine Color YELLOW Urine Appearance CLEAR Urine pH 5.5 Ur Specific [place] 1.020 Urine Protein NEG Urine Glucose (UA) NEG Urine Ketones NEG Urine Blood NEG Urine Nitrite NEG Ur Leukocyte Esterase NEG Urine RBC 0 Urine WBC 0-2 Ur Squamous Epith Cells NONE Amorphous Sediment 1+ Urine Bacteria NONE Hyaline Casts Urine Mucus Urine Osmolality Ur Random Sodium Ur Random Potassium Urine Creatinine Urine Microalbumin Microalb/Creat Ratio Nasal Screen MRSA (PCR) Nasal S. aureus Screen Nasal MRSA/S.aureus Interp Gastric Occult Blood Stool Occult Blood Vancomycin Trough Random Vancomycin Heparin Dep Plt Ab OD Hep-Induced Plt Ab [place] COVID-19 ([facility]) COVID-19 Clin Com Influenza Type A (PCR) Influenza Type B (PCR) L.pneumophila IgM Ab Ur L.pneumophila Ag Pneumocystis Source Pneumocyst jiroveci PCR RSV RNA Qual (PCR) SARS-CoV-2 RNA (RT-PCR) Blood Type Antibody Screen 05/26/21 05/26/21 05/27/21 11:50 17:47 00:31 WBC RBC Hgb Hct MCV MCH MCHC RDW Plt Count MPV Immature Gran % (Auto) Neut % (Auto) Lymph % (Auto) [place] % (Auto) Eos % (Auto) Baso % (Auto) Lymph # (Auto) [place] # (Auto) Eos # (Auto) Baso # (Auto) Abs Immat Gran (auto) Absolute Neuts (auto) Absolute Nucleated RBC Nucleated RBC % (auto) Neutrophils % (Manual) Band Neutrophils % Lymphocytes % (Manual) Atypical Lymphs % (Man) Monocytes % (Manual) Eosinophils % (Manual) Basophils % (Manual) Metamyelocytes % Myelocytes % Abs Neuts (Manual) Lymphocytes # (Manual) Atyp Lymphs # (Manual) Monocytes # (Manual) Eosinophils # (Manual) Basophils # (Manual) Metamyelocytes # Myelocytes # Smudge Cells Platelet Estimate Large Platelets Plt Morphology Comment RBC Morphology Polychromasia Hypochromasia Basophilic Stippling Microcytosis Macrocytosis Tear Drop Cells Ovalocytes Acanthocytes (Spur) Schistocytes Smear Tech's Comments Smear Path Review PT INR D-Dimer High Sensitivty Hep-Ind Thrombocytop Com VBG pH VBG pCO2 VBG pO2 VBG HCO3 VBG O2 Saturation VBG Base Excess Sodium Potassium Chloride Carbon Dioxide Anion Gap BUN Creatinine Estim Creat Clear Calc Estimated GFR POC Glucose 230 H 228 H 201 H Random Glucose Fasting Glucose Estimat Average Glucose Hemoglobin A1c % Lactic Acid Calcium Phosphorus Magnesium Ferritin Total Bilirubin Direct Bilirubin AST ALT Alkaline Phosphatase Lactate Dehydrogenase Total Creatine Kinase Troponin I High Sens C-Reactive Protein B-Natriuretic Peptide Total Protein Albumin Procalcitonin Urine Color Urine Appearance Urine pH Ur Specific [place] Urine Protein Urine Glucose (UA) Urine Ketones Urine Blood Urine Nitrite Ur Leukocyte Esterase Urine RBC Urine WBC Ur Squamous Epith Cells Amorphous Sediment Urine Bacteria Hyaline Casts Urine Mucus Urine Osmolality Ur Random Sodium Ur Random Potassium Urine Creatinine Urine Microalbumin Microalb/Creat Ratio Nasal Screen MRSA (PCR) Nasal S. aureus Screen Nasal MRSA/S.aureus Interp Gastric Occult Blood Stool Occult Blood Vancomycin Trough Random Vancomycin Heparin Dep Plt Ab OD Hep-Induced Plt Ab [place] COVID-19 ([facility]) COVID-19 Clin Com Influenza Type A (PCR) Influenza Type B (PCR) L.pneumophila IgM Ab Ur L.pneumophila Ag Pneumocystis Source Pneumocyst jiroveci PCR RSV RNA Qual (PCR) SARS-CoV-2 RNA (RT-PCR) Blood Type Antibody Screen 05/27/21 05/27/21 05/27/21 05:29 05:38 05:40 WBC 11.9 H RBC 2.77 L Hgb 7.8 L Hct 25.5 L MCV 92.1 MCH 28.2 MCHC 30.6 L RDW 15.4 Plt Count 252 MPV 11.9 Immature Gran % (Auto) Cancelled Neut % (Auto) Cancelled Lymph % (Auto) Cancelled [place] % (Auto) Cancelled Eos % (Auto) Cancelled Baso % (Auto) Cancelled Lymph # (Auto) Cancelled [place] # (Auto) Cancelled Eos # (Auto) Cancelled Baso # (Auto) Cancelled Abs Immat Gran (auto) Cancelled Absolute Neuts (auto) Cancelled Absolute Nucleated RBC 0.060 H Nucleated RBC % (auto) 0.5 H Neutrophils % (Manual) 80 H Band Neutrophils % 10 H Lymphocytes % (Manual) 3 L Atypical Lymphs % (Man) Monocytes % (Manual) 3 Eosinophils % (Manual) Basophils % (Manual) 2 Metamyelocytes % 2 Myelocytes % Abs Neuts (Manual) 10.7 H Lymphocytes # (Manual) 0.4 L Atyp Lymphs # (Manual) Monocytes # (Manual) 0.4 Eosinophils # (Manual) Basophils # (Manual) 0.2 Metamyelocytes # 0.2 Myelocytes # Smudge Cells Platelet Estimate NORMAL Large Platelets Plt Morphology Comment NORMAL RBC Morphology NOTED Polychromasia 2+ (3-5) Hypochromasia Basophilic Stippling 1+ (0-2) Microcytosis 1+ (5-14) Macrocytosis 1+ (5-14) Tear Drop Cells 1+ (0-2) Ovalocytes 1+ (5-14) Acanthocytes (Spur) 1+ (0-2) Schistocytes 1+ (0-2) Smear Tech's Comments Smear Path Review PT INR D-Dimer High Sensitivty Hep-Ind Thrombocytop Com VBG pH 7.35 VBG pCO2 42 VBG pO2 48 VBG HCO3 23 VBG O2 Saturation 76.0 VBG Base Excess -1.7 Sodium Potassium Chloride Carbon Dioxide Anion Gap BUN Creatinine Estim Creat Clear Calc Estimated GFR POC Glucose 162 H Random Glucose Fasting Glucose Estimat Average Glucose Hemoglobin A1c % Lactic Acid Calcium Phosphorus Magnesium Ferritin Total Bilirubin Direct Bilirubin AST ALT Alkaline Phosphatase Lactate Dehydrogenase Total Creatine Kinase Troponin I High Sens C-Reactive Protein B-Natriuretic Peptide Total Protein Albumin Procalcitonin Urine Color Urine Appearance Urine pH Ur Specific [place] Urine Protein Urine Glucose (UA) Urine Ketones Urine Blood Urine Nitrite Ur Leukocyte Esterase Urine RBC Urine WBC Ur Squamous Epith Cells Amorphous Sediment Urine Bacteria Hyaline Casts Urine Mucus Urine Osmolality Ur Random Sodium Ur Random Potassium Urine Creatinine Urine Microalbumin Microalb/Creat Ratio Nasal Screen MRSA (PCR) Nasal S. aureus Screen Nasal MRSA/S.aureus Interp Gastric Occult Blood Stool Occult Blood Vancomycin Trough Random Vancomycin Heparin Dep Plt Ab OD Hep-Induced Plt Ab [place] COVID-19 ([facility]) COVID-19 Clin Com Influenza Type A (PCR) Influenza Type B (PCR) L.pneumophila IgM Ab Ur L.pneumophila Ag Pneumocystis Source Pneumocyst jiroveci PCR RSV RNA Qual (PCR) SARS-CoV-2 RNA (RT-PCR) Blood Type Antibody Screen 05/27/21 05/27/21 05/27/21 05:40 11:55 17:22 WBC RBC Hgb Hct MCV MCH MCHC RDW Plt Count MPV Immature Gran % (Auto) Neut % (Auto) Lymph % (Auto) [place] % (Auto) Eos % (Auto) Baso % (Auto) Lymph # (Auto) [place] # (Auto) Eos # (Auto) Baso # (Auto) Abs Immat Gran (auto) Absolute Neuts (auto) Absolute Nucleated RBC Nucleated RBC % (auto) Neutrophils % (Manual) Band Neutrophils % Lymphocytes % (Manual) Atypical Lymphs % (Man) Monocytes % (Manual) Eosinophils % (Manual) Basophils % (Manual) Metamyelocytes % Myelocytes % Abs Neuts (Manual) Lymphocytes # (Manual) Atyp Lymphs # (Manual) Monocytes # (Manual) Eosinophils # (Manual) Basophils # (Manual) Metamyelocytes # Myelocytes # Smudge Cells Platelet Estimate Large Platelets Plt Morphology Comment RBC Morphology Polychromasia Hypochromasia Basophilic Stippling Microcytosis Macrocytosis Tear Drop Cells Ovalocytes Acanthocytes (Spur) Schistocytes Smear Tech's Comments Smear Path Review PT INR D-Dimer High Sensitivty Hep-Ind Thrombocytop Com VBG pH VBG pCO2 VBG pO2 VBG HCO3 VBG O2 Saturation VBG Base Excess Sodium 136 Potassium 4.9 Chloride 104 Carbon Dioxide 22 Anion Gap 15 BUN 120 H Creatinine 2.31 H Estim Creat Clear Calc 39.1 Estimated GFR 28 POC Glucose 206 H Random Glucose 166 H Fasting Glucose Estimat Average Glucose Hemoglobin A1c % Lactic Acid Calcium 8.4 D Phosphorus Magnesium Ferritin Total Bilirubin 0.4 Direct Bilirubin AST 19 ALT 38 Alkaline Phosphatase 43 Lactate Dehydrogenase Total Creatine Kinase Troponin I High Sens C-Reactive Protein B-Natriuretic Peptide Total Protein 5.5 L Albumin 2.8 L Procalcitonin Urine Color Urine Appearance Urine pH Ur Specific [place] Urine Protein Urine Glucose (UA) Urine Ketones Urine Blood Urine Nitrite Ur Leukocyte Esterase Urine RBC Urine WBC Ur Squamous Epith Cells Amorphous Sediment Urine Bacteria Hyaline Casts Urine Mucus Urine Osmolality Ur Random Sodium Ur Random Potassium Urine Creatinine Urine Microalbumin Microalb/Creat Ratio Nasal Screen MRSA (PCR) Nasal S. aureus Screen Nasal MRSA/S.aureus Interp Gastric Occult Blood NEG Stool Occult Blood Vancomycin Trough Random Vancomycin Heparin Dep Plt Ab OD Hep-Induced Plt Ab [place] COVID-19 ([facility]) COVID-19 Clin Com Influenza Type A (PCR) Influenza Type B (PCR) L.pneumophila IgM Ab Ur L.pneumophila Ag Pneumocystis Source Pneumocyst jiroveci PCR RSV RNA Qual (PCR) SARS-CoV-2 RNA (RT-PCR) Blood Type Antibody Screen 05/27/21 05/27/21 05/27/21 17:28 21:37 23:04 WBC RBC Hgb Hct MCV MCH MCHC RDW Plt Count MPV Immature Gran % (Auto) Neut % (Auto) Lymph % (Auto) [place] % (Auto) Eos % (Auto) Baso % (Auto) Lymph # (Auto) [place] # (Auto) Eos # (Auto) Baso # (Auto) Abs Immat Gran (auto) Absolute Neuts (auto) Absolute Nucleated RBC Nucleated RBC % (auto) Neutrophils % (Manual) Band Neutrophils % Lymphocytes % (Manual) Atypical Lymphs % (Man) Monocytes % (Manual) Eosinophils % (Manual) Basophils % (Manual) Metamyelocytes % Myelocytes % Abs Neuts (Manual) Lymphocytes # (Manual) Atyp Lymphs # (Manual) Monocytes # (Manual) Eosinophils # (Manual) Basophils # (Manual) Metamyelocytes # Myelocytes # Smudge Cells Platelet Estimate Large Platelets Plt Morphology Comment RBC Morphology Polychromasia Hypochromasia Basophilic Stippling Microcytosis Macrocytosis Tear Drop Cells Ovalocytes Acanthocytes (Spur) Schistocytes Smear Tech's Comments Smear Path Review PT INR D-Dimer High Sensitivty Hep-Ind Thrombocytop Com VBG pH VBG pCO2 VBG pO2 VBG HCO3 VBG O2 Saturation VBG Base Excess Sodium Potassium Chloride Carbon Dioxide Anion Gap BUN Creatinine Estim Creat Clear Calc Estimated GFR POC Glucose 164 H 129 H 129 H Random Glucose Fasting Glucose Estimat Average Glucose Hemoglobin A1c % Lactic Acid Calcium Phosphorus Magnesium Ferritin Total Bilirubin Direct Bilirubin AST ALT Alkaline Phosphatase Lactate Dehydrogenase Total Creatine Kinase Troponin I High Sens C-Reactive Protein B-Natriuretic Peptide Total Protein Albumin Procalcitonin Urine Color Urine Appearance Urine pH Ur Specific [place] Urine Protein Urine Glucose (UA) Urine Ketones Urine Blood Urine Nitrite Ur Leukocyte Esterase Urine RBC Urine WBC Ur Squamous Epith Cells Amorphous Sediment Urine Bacteria Hyaline Casts Urine Mucus Urine Osmolality Ur Random Sodium Ur Random Potassium Urine Creatinine Urine Microalbumin Microalb/Creat Ratio Nasal Screen MRSA (PCR) Nasal S. aureus Screen Nasal MRSA/S.aureus Interp Gastric Occult Blood Stool Occult Blood Vancomycin Trough Random Vancomycin Heparin Dep Plt Ab OD Hep-Induced Plt Ab [place] COVID-19 ([facility]) COVID-19 Clin Com Influenza Type A (PCR) Influenza Type B (PCR) L.pneumophila IgM Ab Ur L.pneumophila Ag Pneumocystis Source Pneumocyst jiroveci PCR RSV RNA Qual (PCR) SARS-CoV-2 RNA (RT-PCR) Blood Type Antibody Screen 05/28/21 05/28/21 05/28/21 05:05 05:48 05:49 WBC 10.4 RBC 2.87 L Hgb 8.0 L Hct 26.0 L MCV 90.6 MCH 27.9 MCHC 30.8 L RDW 16.0 Plt Count 237 MPV 12.1 Immature Gran % (Auto) Cancelled Neut % (Auto) Cancelled Lymph % (Auto) Cancelled [place] % (Auto) Cancelled Eos % (Auto) Cancelled Baso % (Auto) Cancelled Lymph # (Auto) Cancelled [place] # (Auto) Cancelled Eos # (Auto) Cancelled Baso # (Auto) Cancelled Abs Immat Gran (auto) Cancelled Absolute Neuts (auto) Cancelled Absolute Nucleated RBC 0.030 H Nucleated RBC % (auto) 0.3 H Neutrophils % (Manual) 81 H Band Neutrophils % 11 H Lymphocytes % (Manual) 4 L Atypical Lymphs % (Man) Monocytes % (Manual) 3 Eosinophils % (Manual) Basophils % (Manual) Metamyelocytes % 1 Myelocytes % Abs Neuts (Manual) 9.6 H Lymphocytes # (Manual) 0.4 L Atyp Lymphs # (Manual) Monocytes # (Manual) 0.3 Eosinophils # (Manual) Basophils # (Manual) Metamyelocytes # 0.1 Myelocytes # Smudge Cells PRESENT Platelet Estimate NORMAL Large Platelets Plt Morphology Comment NORMAL RBC Morphology NOTED Polychromasia 1+ (0-2) Hypochromasia 1+ (5-14) Basophilic Stippling 1+ (0-2) Microcytosis 1+ (5-14) Macrocytosis 1+ (5-14) Tear Drop Cells 1+ (0-2) Ovalocytes 1+ (5-14) Acanthocytes (Spur) 1+ (0-2) Schistocytes 1+ (0-2) Smear Tech's Comments Smear Path Review PT INR D-Dimer High Sensitivty Hep-Ind Thrombocytop Com VBG pH 7.39 VBG pCO2 34 VBG pO2 51 VBG HCO3 21 L VBG O2 Saturation 79.0 VBG Base Excess -3.1 Sodium Potassium Chloride Carbon Dioxide Anion Gap BUN Creatinine Estim Creat Clear Calc Estimated GFR POC Glucose 136 H Random Glucose Fasting Glucose Estimat Average Glucose Hemoglobin A1c % Lactic Acid Calcium Phosphorus Magnesium Ferritin Total Bilirubin Direct Bilirubin AST ALT Alkaline Phosphatase Lactate Dehydrogenase Total Creatine Kinase Troponin I High Sens C-Reactive Protein B-Natriuretic Peptide Total Protein Albumin Procalcitonin Urine Color Urine Appearance Urine pH Ur Specific [place] Urine Protein Urine Glucose (UA) Urine Ketones Urine Blood Urine Nitrite Ur Leukocyte Esterase Urine RBC Urine WBC Ur Squamous Epith Cells Amorphous Sediment Urine Bacteria Hyaline Casts Urine Mucus Urine Osmolality Ur Random Sodium Ur Random Potassium Urine Creatinine Urine Microalbumin Microalb/Creat Ratio Nasal Screen MRSA (PCR) Nasal S. aureus Screen Nasal MRSA/S.aureus Interp Gastric Occult Blood Stool Occult Blood Vancomycin Trough Random Vancomycin Heparin Dep Plt Ab OD Hep-Induced Plt Ab [place] COVID-19 ([facility]) COVID-19 Clin Com Influenza Type A (PCR) Influenza Type B (PCR) L.pneumophila IgM Ab Ur L.pneumophila Ag Pneumocystis Source Pneumocyst jiroveci PCR RSV RNA Qual (PCR) SARS-CoV-2 RNA (RT-PCR) Blood Type Antibody Screen 05/28/21 05/28/21 05/28/21 06:47 12:22 17:51 WBC RBC Hgb Hct MCV MCH MCHC RDW Plt Count MPV Immature Gran % (Auto) Neut % (Auto) Lymph % (Auto) [place] % (Auto) Eos % (Auto) Baso % (Auto) Lymph # (Auto) [place] # (Auto) Eos # (Auto) Baso # (Auto) Abs Immat Gran (auto) Absolute Neuts (auto) Absolute Nucleated RBC Nucleated RBC % (auto) Neutrophils % (Manual) Band Neutrophils % Lymphocytes % (Manual) Atypical Lymphs % (Man) Monocytes % (Manual) Eosinophils % (Manual) Basophils % (Manual) Metamyelocytes % Myelocytes % Abs Neuts (Manual) Lymphocytes # (Manual) Atyp Lymphs # (Manual) Monocytes # (Manual) Eosinophils # (Manual) Basophils # (Manual) Metamyelocytes # Myelocytes # Smudge Cells Platelet Estimate Large Platelets Plt Morphology Comment RBC Morphology Polychromasia Hypochromasia Basophilic Stippling Microcytosis Macrocytosis Tear Drop Cells Ovalocytes Acanthocytes (Spur) Schistocytes Smear Tech's Comments Smear Path Review PT INR D-Dimer High Sensitivty Hep-Ind Thrombocytop Com VBG pH VBG pCO2 VBG pO2 VBG HCO3 VBG O2 Saturation VBG Base Excess Sodium 140 Potassium 5.0 Chloride 111 H Carbon Dioxide 21 L Anion Gap 13 BUN 123 H Creatinine 2.06 H Estim Creat Clear Calc 43.8 Estimated GFR 32 POC Glucose 148 H 185 H Random Glucose 138 H Fasting Glucose Estimat Average Glucose Hemoglobin A1c % Lactic Acid Calcium 8.3 L Phosphorus Magnesium Ferritin Total Bilirubin 0.4 Direct Bilirubin AST 20 ALT 33 Alkaline Phosphatase 46 Lactate Dehydrogenase Total Creatine Kinase Troponin I High Sens C-Reactive Protein B-Natriuretic Peptide Total Protein 5.6 L Albumin 2.8 L Procalcitonin Urine Color Urine Appearance Urine pH Ur Specific [place] Urine Protein Urine Glucose (UA) Urine Ketones Urine Blood Urine Nitrite Ur Leukocyte Esterase Urine RBC Urine WBC Ur Squamous Epith Cells Amorphous Sediment Urine Bacteria Hyaline Casts Urine Mucus Urine Osmolality Ur Random Sodium Ur Random Potassium Urine Creatinine Urine Microalbumin Microalb/Creat Ratio Nasal Screen MRSA (PCR) Nasal S. aureus Screen Nasal MRSA/S.aureus Interp Gastric Occult Blood Stool Occult Blood Vancomycin Trough Random Vancomycin Heparin Dep Plt Ab OD Hep-Induced Plt Ab [place] COVID-19 ([facility]) COVID-19 Clin Com Influenza Type A (PCR) Influenza Type B (PCR) L.pneumophila IgM Ab Ur L.pneumophila Ag Pneumocystis Source Pneumocyst jiroveci PCR RSV RNA Qual (PCR) SARS-CoV-2 RNA (RT-PCR) Blood Type Antibody Screen 05/28/21 05/29/21 05/29/21 20:57 00:20 05:40 WBC 9.1 RBC 2.81 L Hgb 7.9 L Hct 26.2 L MCV 93.2 MCH 28.1 MCHC 30.2 L RDW 16.4 H Plt Count 201 MPV 11.6 Immature Gran % (Auto) 3.3 H Neut % (Auto) 81.9 H Lymph % (Auto) 8.5 L [place] % (Auto) 5.5 Eos % (Auto) 0.7 Baso % (Auto) 0.1 Lymph # (Auto) 0.8 L [place] # (Auto) 0.5 Eos # (Auto) 0.1 Baso # (Auto) 0.0 Abs Immat Gran (auto) 0.30 H Absolute Neuts (auto) 7.4 Absolute Nucleated RBC 0.020 H Nucleated RBC % (auto) 0.2 Neutrophils % (Manual) Band Neutrophils % Lymphocytes % (Manual) Atypical Lymphs % (Man) Monocytes % (Manual) Eosinophils % (Manual) Basophils % (Manual) Metamyelocytes % Myelocytes % Abs Neuts (Manual) Lymphocytes # (Manual) Atyp Lymphs # (Manual) Monocytes # (Manual) Eosinophils # (Manual) Basophils # (Manual) Metamyelocytes # Myelocytes # Smudge Cells Platelet Estimate Large Platelets Plt Morphology Comment RBC Morphology Polychromasia Hypochromasia Basophilic Stippling Microcytosis Macrocytosis Tear Drop Cells Ovalocytes Acanthocytes (Spur) Schistocytes Smear Tech's Comments Smear Path Review PT INR D-Dimer High Sensitivty Hep-Ind Thrombocytop Com VBG pH VBG pCO2 VBG pO2 VBG HCO3 VBG O2 Saturation VBG Base Excess Sodium Potassium Chloride Carbon Dioxide Anion Gap BUN Creatinine Estim Creat Clear Calc Estimated GFR POC Glucose 149 H 131 H Random Glucose Fasting Glucose Estimat Average Glucose Hemoglobin A1c % Lactic Acid Calcium Phosphorus Magnesium Ferritin Total Bilirubin Direct Bilirubin AST ALT Alkaline Phosphatase Lactate Dehydrogenase Total Creatine Kinase Troponin I High Sens C-Reactive Protein B-Natriuretic Peptide Total Protein Albumin Procalcitonin Urine Color Urine Appearance Urine pH Ur Specific [place] Urine Protein Urine Glucose (UA) Urine Ketones Urine Blood Urine Nitrite Ur Leukocyte Esterase Urine RBC Urine WBC Ur Squamous Epith Cells Amorphous Sediment Urine Bacteria Hyaline Casts Urine Mucus Urine Osmolality Ur Random Sodium Ur Random Potassium Urine Creatinine Urine Microalbumin Microalb/Creat Ratio Nasal Screen MRSA (PCR) Nasal S. aureus Screen Nasal MRSA/S.aureus Interp Gastric Occult Blood Stool Occult Blood Vancomycin Trough Random Vancomycin Heparin Dep Plt Ab OD Hep-Induced Plt Ab [place] COVID-19 ([facility]) COVID-19 Clin Com Influenza Type A (PCR) Influenza Type B (PCR) L.pneumophila IgM Ab Ur L.pneumophila Ag Pneumocystis Source Pneumocyst jiroveci PCR RSV RNA Qual (PCR) SARS-CoV-2 RNA (RT-PCR) Blood Type Antibody Screen 05/29/21 05/29/21 05/29/21 05:40 05:46 11:40 WBC RBC Hgb Hct MCV MCH MCHC RDW Plt Count MPV Immature Gran % (Auto) Neut % (Auto) Lymph % (Auto) [place] % (Auto) Eos % (Auto) Baso % (Auto) Lymph # (Auto) [place] # (Auto) Eos # (Auto) Baso # (Auto) Abs Immat Gran (auto) Absolute Neuts (auto) Absolute Nucleated RBC Nucleated RBC % (auto) Neutrophils % (Manual) Band Neutrophils % Lymphocytes % (Manual) Atypical Lymphs % (Man) Monocytes % (Manual) Eosinophils % (Manual) Basophils % (Manual) Metamyelocytes % Myelocytes % Abs Neuts (Manual) Lymphocytes # (Manual) Atyp Lymphs # (Manual) Monocytes # (Manual) Eosinophils # (Manual) Basophils # (Manual) Metamyelocytes # Myelocytes # Smudge Cells Platelet Estimate Large Platelets Plt Morphology Comment RBC Morphology Polychromasia Hypochromasia Basophilic Stippling Microcytosis Macrocytosis Tear Drop Cells Ovalocytes Acanthocytes (Spur) Schistocytes Smear Tech's Comments Smear Path Review PT INR D-Dimer High Sensitivty Hep-Ind Thrombocytop Com VBG pH 7.28 L VBG pCO2 40 VBG pO2 51 VBG HCO3 19 L VBG O2 Saturation 69.0 VBG Base Excess -6.4 Sodium 143 Potassium 5.4 H Chloride 116 H Carbon Dioxide 21 L Anion Gap 11 L BUN 112 H Creatinine 1.91 H Estim Creat Clear Calc 46.5 Estimated GFR 35 POC Glucose 129 H Random Glucose 136 H Fasting Glucose Estimat Average Glucose Hemoglobin A1c % Lactic Acid Calcium 8.4 Phosphorus 6.1 H Magnesium Ferritin Total Bilirubin 0.5 Direct Bilirubin AST 18 ALT 30 Alkaline Phosphatase 45 Lactate Dehydrogenase Total Creatine Kinase Troponin I High Sens C-Reactive Protein B-Natriuretic Peptide Total Protein 5.5 L Albumin 2.7 L Procalcitonin Urine Color Urine Appearance Urine pH Ur Specific [place] Urine Protein Urine Glucose (UA) Urine Ketones Urine Blood Urine Nitrite Ur Leukocyte Esterase Urine RBC Urine WBC Ur Squamous Epith Cells Amorphous Sediment Urine Bacteria Hyaline Casts Urine Mucus Urine Osmolality Ur Random Sodium Ur Random Potassium Urine Creatinine Urine Microalbumin Microalb/Creat Ratio Nasal Screen MRSA (PCR) Nasal S. aureus Screen Nasal MRSA/S.aureus Interp Gastric Occult Blood Stool Occult Blood Vancomycin Trough Random Vancomycin Heparin Dep Plt Ab OD Hep-Induced Plt Ab [place] COVID-19 ([facility]) COVID-19 Clin Com Influenza Type A (PCR) Influenza Type B (PCR) L.pneumophila IgM Ab Ur L.pneumophila Ag Pneumocystis Source Pneumocyst jiroveci PCR RSV RNA Qual (PCR) SARS-CoV-2 RNA (RT-PCR) Blood Type Antibody Screen 05/29/21 05/29/21 05/29/21 17:13 20:32 23:25 WBC RBC Hgb Hct MCV MCH MCHC RDW Plt Count MPV Immature Gran % (Auto) Neut % (Auto) Lymph % (Auto) [place] % (Auto) Eos % (Auto) Baso % (Auto) Lymph # (Auto) [place] # (Auto) Eos # (Auto) Baso # (Auto) Abs Immat Gran (auto) Absolute Neuts (auto) Absolute Nucleated RBC Nucleated RBC % (auto) Neutrophils % (Manual) Band Neutrophils % Lymphocytes % (Manual) Atypical Lymphs % (Man) Monocytes % (Manual) Eosinophils % (Manual) Basophils % (Manual) Metamyelocytes % Myelocytes % Abs Neuts (Manual) Lymphocytes # (Manual) Atyp Lymphs # (Manual) Monocytes # (Manual) Eosinophils # (Manual) Basophils # (Manual) Metamyelocytes # Myelocytes # Smudge Cells Platelet Estimate Large Platelets Plt Morphology Comment RBC Morphology Polychromasia Hypochromasia Basophilic Stippling Microcytosis Macrocytosis Tear Drop Cells Ovalocytes Acanthocytes (Spur) Schistocytes Smear Tech's Comments Smear Path Review PT INR D-Dimer High Sensitivty Hep-Ind Thrombocytop Com VBG pH VBG pCO2 VBG pO2 VBG HCO3 VBG O2 Saturation VBG Base Excess Sodium Potassium Chloride Carbon Dioxide Anion Gap BUN Creatinine Estim Creat Clear Calc Estimated GFR POC Glucose 130 H 115 Random Glucose Fasting Glucose Estimat Average Glucose Hemoglobin A1c % Lactic Acid Calcium Phosphorus Magnesium Ferritin Total Bilirubin Direct Bilirubin AST ALT Alkaline Phosphatase Lactate Dehydrogenase Total Creatine Kinase Troponin I High Sens C-Reactive Protein B-Natriuretic Peptide Total Protein Albumin Procalcitonin Urine Color Urine Appearance Urine pH Ur Specific [place] Urine Protein Urine Glucose (UA) Urine Ketones Urine Blood Urine Nitrite Ur Leukocyte Esterase Urine RBC Urine WBC Ur Squamous Epith Cells Amorphous Sediment Urine Bacteria Hyaline Casts Urine Mucus Urine Osmolality Ur Random Sodium Ur Random Potassium Urine Creatinine Urine Microalbumin Microalb/Creat Ratio Nasal Screen MRSA (PCR) Nasal S. aureus Screen Nasal MRSA/S.aureus Interp Gastric Occult Blood Stool Occult Blood Vancomycin Trough Random Vancomycin Heparin Dep Plt Ab OD Hep-Induced Plt Ab [place] COVID-19 ([facility]) COVID-19 Clin Com Influenza Type A (PCR) NEGATIVE Influenza Type B (PCR) NEGATIVE L.pneumophila IgM Ab Ur L.pneumophila Ag Pneumocystis Source Pneumocyst jiroveci PCR RSV RNA Qual (PCR) NEGATIVE SARS-CoV-2 RNA (RT-PCR) POSITIVE A Blood Type Antibody Screen 05/30/21 05/30/21 05/30/21 00:01 05:07 05:30 WBC 7.0 RBC 3.05 L Hgb 8.6 L Hct 28.6 L MCV 93.8 MCH 28.2 MCHC 30.1 L RDW 17.0 H Plt Count 210 MPV 11.7 Immature Gran % (Auto) Neut % (Auto) Lymph % (Auto) [place] % (Auto) Eos % (Auto) Baso % (Auto) Lymph # (Auto) [place] # (Auto) Eos # (Auto) Baso # (Auto) Abs Immat Gran (auto) Absolute Neuts (auto) Absolute Nucleated RBC 0.000 Nucleated RBC % (auto) 0.0 Neutrophils % (Manual) Band Neutrophils % Lymphocytes % (Manual) Atypical Lymphs % (Man) Monocytes % (Manual) Eosinophils % (Manual) Basophils % (Manual) Metamyelocytes % Myelocytes % Abs Neuts (Manual) Lymphocytes # (Manual) Atyp Lymphs # (Manual) Monocytes # (Manual) Eosinophils # (Manual) Basophils # (Manual) Metamyelocytes # Myelocytes # Smudge Cells Platelet Estimate Large Platelets Plt Morphology Comment RBC Morphology Polychromasia Hypochromasia Basophilic Stippling Microcytosis Macrocytosis Tear Drop Cells Ovalocytes Acanthocytes (Spur) Schistocytes Smear Tech's Comments Smear Path Review PT INR D-Dimer High Sensitivty Hep-Ind Thrombocytop Com VBG pH VBG pCO2 VBG pO2 VBG HCO3 VBG O2 Saturation VBG Base Excess Sodium Potassium Chloride Carbon Dioxide Anion Gap BUN Creatinine Estim Creat Clear Calc Estimated GFR POC Glucose 107 143 H Random Glucose Fasting Glucose Estimat Average Glucose Hemoglobin A1c % Lactic Acid Calcium Phosphorus Magnesium Ferritin Total Bilirubin Direct Bilirubin AST ALT Alkaline Phosphatase Lactate Dehydrogenase Total Creatine Kinase Troponin I High Sens C-Reactive Protein B-Natriuretic Peptide Total Protein Albumin Procalcitonin Urine Color Urine Appearance Urine pH Ur Specific [place] Urine Protein Urine Glucose (UA) Urine Ketones Urine Blood Urine Nitrite Ur Leukocyte Esterase Urine RBC Urine WBC Ur Squamous Epith Cells Amorphous Sediment Urine Bacteria Hyaline Casts Urine Mucus Urine Osmolality Ur Random Sodium Ur Random Potassium Urine Creatinine Urine Microalbumin Microalb/Creat Ratio Nasal Screen MRSA (PCR) Nasal S. aureus Screen Nasal MRSA/S.aureus Interp Gastric Occult Blood Stool Occult Blood Vancomycin Trough Random Vancomycin Heparin Dep Plt Ab OD Hep-Induced Plt Ab [place] COVID-19 ([facility]) COVID-19 Clin Com Influenza Type A (PCR) Influenza Type B (PCR) L.pneumophila IgM Ab Ur L.pneumophila Ag Pneumocystis Source Pneumocyst jiroveci PCR RSV RNA Qual (PCR) SARS-CoV-2 RNA (RT-PCR) Blood Type Antibody Screen 05/30/21 05/30/21 05/30/21 05:30 05:30 05:30 WBC RBC Hgb Hct MCV MCH MCHC RDW Plt Count MPV Immature Gran % (Auto) Neut % (Auto) Lymph % (Auto) [place] % (Auto) Eos % (Auto) Baso % (Auto) Lymph # (Auto) [place] # (Auto) Eos # (Auto) Baso # (Auto) Abs Immat Gran (auto) Absolute Neuts (auto) Absolute Nucleated RBC Nucleated RBC % (auto) Neutrophils % (Manual) Band Neutrophils % Lymphocytes % (Manual) Atypical Lymphs % (Man) Monocytes % (Manual) Eosinophils % (Manual) Basophils % (Manual) Metamyelocytes % Myelocytes % Abs Neuts (Manual) Lymphocytes # (Manual) Atyp Lymphs # (Manual) Monocytes # (Manual) Eosinophils # (Manual) Basophils # (Manual) Metamyelocytes # Myelocytes # Smudge Cells Platelet Estimate Large Platelets Plt Morphology Comment RBC Morphology Polychromasia Hypochromasia Basophilic Stippling Microcytosis Macrocytosis Tear Drop Cells Ovalocytes Acanthocytes (Spur) Schistocytes Smear Tech's Comments Smear Path Review PT INR D-Dimer High Sensitivty 2233 Hep-Ind Thrombocytop Com VBG pH VBG pCO2 VBG pO2 VBG HCO3 VBG O2 Saturation VBG Base Excess Sodium 147 H Potassium 5.9 H Chloride 120 H Carbon Dioxide 21 L Anion Gap 12 BUN 98 H Creatinine 1.47 H Estim Creat Clear Calc 58.8 Estimated GFR 48 POC Glucose Random Glucose 153 H Fasting Glucose Estimat Average Glucose Hemoglobin A1c % Lactic Acid Calcium 8.8 Phosphorus 4.8 H Magnesium 2.3 Ferritin 1606 H Total Bilirubin Direct Bilirubin AST ALT Alkaline Phosphatase Lactate Dehydrogenase Total Creatine Kinase 87 D Troponin I High Sens C-Reactive Protein 2.42 H B-Natriuretic Peptide 395 H Total Protein Albumin Procalcitonin Urine Color Urine Appearance Urine pH Ur Specific [place] Urine Protein Urine Glucose (UA) Urine Ketones Urine Blood Urine Nitrite Ur Leukocyte Esterase Urine RBC Urine WBC Ur Squamous Epith Cells Amorphous Sediment Urine Bacteria Hyaline Casts Urine Mucus Urine Osmolality Ur Random Sodium Ur Random Potassium Urine Creatinine Urine Microalbumin Microalb/Creat Ratio Nasal Screen MRSA (PCR) Nasal S. aureus Screen Nasal MRSA/S.aureus Interp Gastric Occult Blood Stool Occult Blood Vancomycin Trough Random Vancomycin Heparin Dep Plt Ab OD Hep-Induced Plt Ab [place] COVID-19 ([facility]) COVID-19 Clin Com Influenza Type A (PCR) Influenza Type B (PCR) L.pneumophila IgM Ab Ur L.pneumophila Ag Pneumocystis Source Pneumocyst jiroveci PCR RSV RNA Qual (PCR) SARS-CoV-2 RNA (RT-PCR) Blood Type Antibody Screen 05/30/21 05/30/21 05/30/21 05:30 05:31 10:55 WBC RBC Hgb Hct MCV MCH MCHC RDW Plt Count MPV Immature Gran % (Auto) Neut % (Auto) Lymph % (Auto) [place] % (Auto) Eos % (Auto) Baso % (Auto) Lymph # (Auto) [place] # (Auto) Eos # (Auto) Baso # (Auto) Abs Immat Gran (auto) Absolute Neuts (auto) Absolute Nucleated RBC Nucleated RBC % (auto) Neutrophils % (Manual) Band Neutrophils % Lymphocytes % (Manual) Atypical Lymphs % (Man) Monocytes % (Manual) Eosinophils % (Manual) Basophils % (Manual) Metamyelocytes % Myelocytes % Abs Neuts (Manual) Lymphocytes # (Manual) Atyp Lymphs # (Manual) Monocytes # (Manual) Eosinophils # (Manual) Basophils # (Manual) Metamyelocytes # Myelocytes # Smudge Cells Platelet Estimate Large Platelets Plt Morphology Comment RBC Morphology Polychromasia Hypochromasia Basophilic Stippling Microcytosis Macrocytosis Tear Drop Cells Ovalocytes Acanthocytes (Spur) Schistocytes Smear Tech's Comments Smear Path Review PT INR D-Dimer High Sensitivty Hep-Ind Thrombocytop Com VBG pH 7.33 VBG pCO2 32 VBG pO2 44 VBG HCO3 17 L VBG O2 Saturation 70.0 VBG Base Excess -7.4 Sodium Potassium Chloride Carbon Dioxide Anion Gap BUN Creatinine Estim Creat Clear Calc Estimated GFR POC Glucose Random Glucose Fasting Glucose Estimat Average Glucose Hemoglobin A1c % Lactic Acid Calcium Phosphorus Magnesium Ferritin Total Bilirubin Direct Bilirubin AST ALT Alkaline Phosphatase Lactate Dehydrogenase Total Creatine Kinase Troponin I High Sens C-Reactive Protein B-Natriuretic Peptide Total Protein Albumin Procalcitonin 0.29 Urine Color Urine Appearance Urine pH Ur Specific [place] Urine Protein Urine Glucose (UA) Urine Ketones Urine Blood Urine Nitrite Ur Leukocyte Esterase Urine RBC Urine WBC Ur Squamous Epith Cells Amorphous Sediment Urine Bacteria Hyaline Casts Urine Mucus Urine Osmolality 417 Ur Random Sodium Ur Random Potassium Urine Creatinine Urine Microalbumin Microalb/Creat Ratio Nasal Screen MRSA (PCR) Nasal S. aureus Screen Nasal MRSA/S.aureus Interp Gastric Occult Blood Stool Occult Blood Vancomycin Trough Random Vancomycin Heparin Dep Plt Ab OD Hep-Induced Plt Ab [place] COVID-19 ([facility]) COVID-19 Clin Com Influenza Type A (PCR) Influenza Type B (PCR) L.pneumophila IgM Ab Ur L.pneumophila Ag Pneumocystis Source Pneumocyst jiroveci PCR RSV RNA Qual (PCR) SARS-CoV-2 RNA (RT-PCR) Blood Type Antibody Screen 05/30/21 05/30/21 05/30/21 10:55 11:24 12:21 WBC RBC Hgb Hct MCV MCH MCHC RDW Plt Count MPV Immature Gran % (Auto) Neut % (Auto) Lymph % (Auto) [place] % (Auto) Eos % (Auto) Baso % (Auto) Lymph # (Auto) [place] # (Auto) Eos # (Auto) Baso # (Auto) Abs Immat Gran (auto) Absolute Neuts (auto) Absolute Nucleated RBC Nucleated RBC % (auto) Neutrophils % (Manual) Band Neutrophils % Lymphocytes % (Manual) Atypical Lymphs % (Man) Monocytes % (Manual) Eosinophils % (Manual) Basophils % (Manual) Metamyelocytes % Myelocytes % Abs Neuts (Manual) Lymphocytes # (Manual) Atyp Lymphs # (Manual) Monocytes # (Manual) Eosinophils # (Manual) Basophils # (Manual) Metamyelocytes # Myelocytes # Smudge Cells Platelet Estimate Large Platelets Plt Morphology Comment RBC Morphology Polychromasia Hypochromasia Basophilic Stippling Microcytosis Macrocytosis Tear Drop Cells Ovalocytes Acanthocytes (Spur) Schistocytes Smear Tech's Comments Smear Path Review PT INR D-Dimer High Sensitivty Hep-Ind Thrombocytop Com VBG pH VBG pCO2 VBG pO2 VBG HCO3 VBG O2 Saturation VBG Base Excess Sodium Potassium 5.5 H Chloride Carbon Dioxide Anion Gap BUN Creatinine Estim Creat Clear Calc Estimated GFR POC Glucose 133 H Random Glucose Fasting Glucose Estimat Average Glucose Hemoglobin A1c % Lactic Acid Calcium Phosphorus Magnesium Ferritin Total Bilirubin Direct Bilirubin AST ALT Alkaline Phosphatase Lactate Dehydrogenase Total Creatine Kinase Troponin I High Sens C-Reactive Protein B-Natriuretic Peptide Total Protein Albumin Procalcitonin Urine Color Urine Appearance Urine pH Ur Specific [place] Urine Protein Urine Glucose (UA) Urine Ketones Urine Blood Urine Nitrite Ur Leukocyte Esterase Urine RBC Urine WBC Ur Squamous Epith Cells Amorphous Sediment Urine Bacteria Hyaline Casts Urine Mucus Urine Osmolality Ur Random Sodium 59.0 Ur Random Potassium 15.2 Urine Creatinine Urine Microalbumin Microalb/Creat Ratio Nasal Screen MRSA (PCR) Nasal S. aureus Screen Nasal MRSA/S.aureus Interp Gastric Occult Blood Stool Occult Blood Vancomycin Trough Random Vancomycin Heparin Dep Plt Ab OD Hep-Induced Plt Ab [place] COVID-19 ([facility]) COVID-19 Clin Com Influenza Type A (PCR) Influenza Type B (PCR) L.pneumophila IgM Ab Ur L.pneumophila Ag Pneumocystis Source Pneumocyst jiroveci PCR RSV RNA Qual (PCR) SARS-CoV-2 RNA (RT-PCR) Blood Type Antibody Screen 05/30/21 05/30/21 05/30/21 14:42 14:42 17:37 WBC 14.8 H RBC 3.35 L Hgb 9.5 L Hct 32.0 L MCV 95.5 MCH 28.4 MCHC 29.7 L RDW 17.3 H Plt Count 349 D MPV 11.7 Immature Gran % (Auto) Neut % (Auto) Lymph % (Auto) [place] % (Auto) Eos % (Auto) Baso % (Auto) Lymph # (Auto) [place] # (Auto) Eos # (Auto) Baso # (Auto) Abs Immat Gran (auto) Absolute Neuts (auto) Absolute Nucleated RBC 0.040 H Nucleated RBC % (auto) 0.3 H Neutrophils % (Manual) Band Neutrophils % Lymphocytes % (Manual) Atypical Lymphs % (Man) Monocytes % (Manual) Eosinophils % (Manual) Basophils % (Manual) Metamyelocytes % Myelocytes % Abs Neuts (Manual) Lymphocytes # (Manual) Atyp Lymphs # (Manual) Monocytes # (Manual) Eosinophils # (Manual) Basophils # (Manual) Metamyelocytes # Myelocytes # Smudge Cells Platelet Estimate Large Platelets Plt Morphology Comment RBC Morphology Polychromasia Hypochromasia Basophilic Stippling Microcytosis Macrocytosis Tear Drop Cells Ovalocytes Acanthocytes (Spur) Schistocytes Smear Tech's Comments Smear Path Review PT INR D-Dimer High Sensitivty Hep-Ind Thrombocytop Com VBG pH VBG pCO2 VBG pO2 VBG HCO3 VBG O2 Saturation VBG Base Excess Sodium Potassium Chloride Carbon Dioxide Anion Gap BUN Creatinine Estim Creat Clear Calc Estimated GFR POC Glucose 152 H Random Glucose Fasting Glucose Estimat Average Glucose Hemoglobin A1c % Lactic Acid 1.2 Calcium Phosphorus Magnesium Ferritin Total Bilirubin Direct Bilirubin AST ALT Alkaline Phosphatase Lactate Dehydrogenase Total Creatine Kinase Troponin I High Sens C-Reactive Protein B-Natriuretic Peptide Total Protein Albumin Procalcitonin Urine Color Urine Appearance Urine pH Ur Specific [place] Urine Protein Urine Glucose (UA) Urine Ketones Urine Blood Urine Nitrite Ur Leukocyte Esterase Urine RBC Urine WBC Ur Squamous Epith Cells Amorphous Sediment Urine Bacteria Hyaline Casts Urine Mucus Urine Osmolality Ur Random Sodium Ur Random Potassium Urine Creatinine Urine Microalbumin Microalb/Creat Ratio Nasal Screen MRSA (PCR) Nasal S. aureus Screen Nasal MRSA/S.aureus Interp Gastric Occult Blood Stool Occult Blood Vancomycin Trough Random Vancomycin Heparin Dep Plt Ab OD Hep-Induced Plt Ab [place] COVID-19 ([facility]) COVID-19 Clin Com Influenza Type A (PCR) Influenza Type B (PCR) L.pneumophila IgM Ab Ur L.pneumophila Ag Pneumocystis Source Pneumocyst jiroveci PCR RSV RNA Qual (PCR) SARS-CoV-2 RNA (RT-PCR) Blood Type Antibody Screen 05/30/21 05/31/21 05/31/21 20:18 00:36 00:50 WBC RBC Hgb Hct MCV MCH MCHC RDW Plt Count MPV Immature Gran % (Auto) Neut % (Auto) Lymph % (Auto) [place] % (Auto) Eos % (Auto) Baso % (Auto) Lymph # (Auto) [place] # (Auto) Eos # (Auto) Baso # (Auto) Abs Immat Gran (auto) Absolute Neuts (auto) Absolute Nucleated RBC Nucleated RBC % (auto) Neutrophils % (Manual) Band Neutrophils % Lymphocytes % (Manual) Atypical Lymphs % (Man) Monocytes % (Manual) Eosinophils % (Manual) Basophils % (Manual) Metamyelocytes % Myelocytes % Abs Neuts (Manual) Lymphocytes # (Manual) Atyp Lymphs # (Manual) Monocytes # (Manual) Eosinophils # (Manual) Basophils # (Manual) Metamyelocytes # Myelocytes # Smudge Cells Platelet Estimate Large Platelets Plt Morphology Comment RBC Morphology Polychromasia Hypochromasia Basophilic Stippling Microcytosis Macrocytosis Tear Drop Cells Ovalocytes Acanthocytes (Spur) Schistocytes Smear Tech's Comments Smear Path Review PT INR D-Dimer High Sensitivty Hep-Ind Thrombocytop Com VBG pH VBG pCO2 VBG pO2 VBG HCO3 VBG O2 Saturation VBG Base Excess Sodium Potassium Chloride Carbon Dioxide Anion Gap BUN Creatinine Estim Creat Clear Calc Estimated GFR POC Glucose 122 H 166 H Random Glucose Fasting Glucose Estimat Average Glucose Hemoglobin A1c % Lactic Acid Calcium Phosphorus Magnesium Ferritin Total Bilirubin Direct Bilirubin AST ALT Alkaline Phosphatase Lactate Dehydrogenase Total Creatine Kinase Troponin I High Sens C-Reactive Protein B-Natriuretic Peptide Total Protein Albumin Procalcitonin Urine Color YELLOW Urine Appearance CLEAR Urine pH 5.5 Ur Specific [place] 1.020 Urine Protein 1+ H Urine Glucose (UA) NEG Urine Ketones NEG Urine Blood 2+ H Urine Nitrite NEG Ur Leukocyte Esterase NEG Urine RBC 1-4 Urine WBC 0-2 Ur Squamous Epith Cells TRACE Amorphous Sediment 1+ Urine Bacteria NONE Hyaline Casts 0-2 Urine Mucus TRACE Urine Osmolality Ur Random Sodium Ur Random Potassium Urine Creatinine Urine Microalbumin Microalb/Creat Ratio Nasal Screen MRSA (PCR) Nasal S. aureus Screen Nasal MRSA/S.aureus Interp Gastric Occult Blood Stool Occult Blood Vancomycin Trough Random Vancomycin Heparin Dep Plt Ab OD Hep-Induced Plt Ab [place] COVID-19 ([facility]) COVID-19 Clin Com Influenza Type A (PCR) Influenza Type B (PCR) L.pneumophila IgM Ab Ur L.pneumophila Ag Pneumocystis Source Pneumocyst jiroveci PCR RSV RNA Qual (PCR) SARS-CoV-2 RNA (RT-PCR) Blood Type Antibody Screen 05/31/21 05/31/21 05/31/21 05:25 05:25 05:29 WBC 9.1 RBC 2.92 L Hgb 8.3 L Hct 27.4 L MCV 93.8 MCH 28.4 MCHC 30.3 L RDW 17.4 H Plt Count 227 D MPV 11.5 Immature Gran % (Auto) Neut % (Auto) Lymph % (Auto) [place] % (Auto) Eos % (Auto) Baso % (Auto) Lymph # (Auto) [place] # (Auto) Eos # (Auto) Baso # (Auto) Abs Immat Gran (auto) Absolute Neuts (auto) Absolute Nucleated RBC 0.030 H Nucleated RBC % (auto) 0.3 H Neutrophils % (Manual) Band Neutrophils % Lymphocytes % (Manual) Atypical Lymphs % (Man) Monocytes % (Manual) Eosinophils % (Manual) Basophils % (Manual) Metamyelocytes % Myelocytes % Abs Neuts (Manual) Lymphocytes # (Manual) Atyp Lymphs # (Manual) Monocytes # (Manual) Eosinophils # (Manual) Basophils # (Manual) Metamyelocytes # Myelocytes # Smudge Cells Platelet Estimate Large Platelets Plt Morphology Comment RBC Morphology Polychromasia Hypochromasia Basophilic Stippling Microcytosis Macrocytosis Tear Drop Cells Ovalocytes Acanthocytes (Spur) Schistocytes Smear Tech's Comments Smear Path Review PT INR D-Dimer High Sensitivty Hep-Ind Thrombocytop Com VBG pH 7.38 VBG pCO2 28 VBG pO2 43 VBG HCO3 17 L VBG O2 Saturation 73.0 VBG Base Excess -6.6 Sodium 149 H Potassium 5.4 H Chloride 122 H Carbon Dioxide 21 L Anion Gap 11 L BUN 106 H Creatinine 1.60 H Estim Creat Clear Calc 55.0 Estimated GFR 43 POC Glucose Random Glucose 164 H Fasting Glucose Estimat Average Glucose Hemoglobin A1c % Lactic Acid Calcium 8.8 Phosphorus 3.8 Magnesium 2.3 Ferritin Total Bilirubin Direct Bilirubin AST ALT Alkaline Phosphatase Lactate Dehydrogenase Total Creatine Kinase Troponin I High Sens C-Reactive Protein B-Natriuretic Peptide Total Protein Albumin Procalcitonin Urine Color Urine Appearance Urine pH Ur Specific [place] Urine Protein Urine Glucose (UA) Urine Ketones Urine Blood Urine Nitrite Ur Leukocyte Esterase Urine RBC Urine WBC Ur Squamous Epith Cells Amorphous Sediment Urine Bacteria Hyaline Casts Urine Mucus Urine Osmolality Ur Random Sodium Ur Random Potassium Urine Creatinine Urine Microalbumin Microalb/Creat Ratio Nasal Screen MRSA (PCR) Nasal S. aureus Screen Nasal MRSA/S.aureus Interp Gastric Occult Blood Stool Occult Blood Vancomycin Trough Random Vancomycin Heparin Dep Plt Ab OD Hep-Induced Plt Ab [place] COVID-19 ([facility]) COVID-19 Clin Com Influenza Type A (PCR) Influenza Type B (PCR) L.pneumophila IgM Ab Ur L.pneumophila Ag Pneumocystis Source Pneumocyst jiroveci PCR RSV RNA Qual (PCR) SARS-CoV-2 RNA (RT-PCR) Blood Type Antibody Screen 05/31/21 05/31/21 05/31/21 11:44 17:57 23:19 WBC RBC Hgb Hct MCV MCH MCHC RDW Plt Count MPV Immature Gran % (Auto) Neut % (Auto) Lymph % (Auto) [place] % (Auto) Eos % (Auto) Baso % (Auto) Lymph # (Auto) [place] # (Auto) Eos # (Auto) Baso # (Auto) Abs Immat Gran (auto) Absolute Neuts (auto) Absolute Nucleated RBC Nucleated RBC % (auto) Neutrophils % (Manual) Band Neutrophils % Lymphocytes % (Manual) Atypical Lymphs % (Man) Monocytes % (Manual) Eosinophils % (Manual) Basophils % (Manual) Metamyelocytes % Myelocytes % Abs Neuts (Manual) Lymphocytes # (Manual) Atyp Lymphs # (Manual) Monocytes # (Manual) Eosinophils # (Manual) Basophils # (Manual) Metamyelocytes # Myelocytes # Smudge Cells Platelet Estimate Large Platelets Plt Morphology Comment RBC Morphology Polychromasia Hypochromasia Basophilic Stippling Microcytosis Macrocytosis Tear Drop Cells Ovalocytes Acanthocytes (Spur) Schistocytes Smear Tech's Comments Smear Path Review PT INR D-Dimer High Sensitivty Hep-Ind Thrombocytop Com VBG pH VBG pCO2 VBG pO2 VBG HCO3 VBG O2 Saturation VBG Base Excess Sodium Potassium Chloride Carbon Dioxide Anion Gap BUN Creatinine Estim Creat Clear Calc Estimated GFR POC Glucose 109 165 H 118 H Random Glucose Fasting Glucose Estimat Average Glucose Hemoglobin A1c % Lactic Acid Calcium Phosphorus Magnesium Ferritin Total Bilirubin Direct Bilirubin AST ALT Alkaline Phosphatase Lactate Dehydrogenase Total Creatine Kinase Troponin I High Sens C-Reactive Protein B-Natriuretic Peptide Total Protein Albumin Procalcitonin Urine Color Urine Appearance Urine pH Ur Specific [place] Urine Protein Urine Glucose (UA) Urine Ketones Urine Blood Urine Nitrite Ur Leukocyte Esterase Urine RBC Urine WBC Ur Squamous Epith Cells Amorphous Sediment Urine Bacteria Hyaline Casts Urine Mucus Urine Osmolality Ur Random Sodium Ur Random Potassium Urine Creatinine Urine Microalbumin Microalb/Creat Ratio Nasal Screen MRSA (PCR) Nasal S. aureus Screen Nasal MRSA/S.aureus Interp Gastric Occult Blood Stool Occult Blood Vancomycin Trough Random Vancomycin Heparin Dep Plt Ab OD Hep-Induced Plt Ab [place] COVID-19 ([facility]) COVID-19 Clin Com Influenza Type A (PCR) Influenza Type B (PCR) L.pneumophila IgM Ab Ur L.pneumophila Ag Pneumocystis Source Pneumocyst jiroveci PCR RSV RNA Qual (PCR) SARS-CoV-2 RNA (RT-PCR) Blood Type Antibody Screen 06/01/21 06/01/21 06/01/21 05:22 05:22 05:38 WBC 8.0 RBC 2.97 L Hgb 8.6 L Hct 28.0 L MCV 94.3 MCH 29.0 MCHC 30.7 L RDW 18.1 H Plt Count 201 MPV 11.8 Immature Gran % (Auto) Neut % (Auto) Lymph % (Auto) [place] % (Auto) Eos % (Auto) Baso % (Auto) Lymph # (Auto) [place] # (Auto) Eos # (Auto) Baso # (Auto) Abs Immat Gran (auto) Absolute Neuts (auto) Absolute Nucleated RBC 0.020 H Nucleated RBC % (auto) 0.3 H Neutrophils % (Manual) Band Neutrophils % Lymphocytes % (Manual) Atypical Lymphs % (Man) Monocytes % (Manual) Eosinophils % (Manual) Basophils % (Manual) Metamyelocytes % Myelocytes % Abs Neuts (Manual) Lymphocytes # (Manual) Atyp Lymphs # (Manual) Monocytes # (Manual) Eosinophils # (Manual) Basophils # (Manual) Metamyelocytes # Myelocytes # Smudge Cells Platelet Estimate Large Platelets Plt Morphology Comment RBC Morphology Polychromasia Hypochromasia Basophilic Stippling Microcytosis Macrocytosis Tear Drop Cells Ovalocytes Acanthocytes (Spur) Schistocytes Smear Tech's Comments Smear Path Review PT INR D-Dimer High Sensitivty Hep-Ind Thrombocytop Com VBG pH 7.36 VBG pCO2 37 VBG pO2 84 VBG HCO3 21 L VBG O2 Saturation 96.0 VBG Base Excess -2.9 Sodium 151 H Potassium 5.1 Chloride 122 H Carbon Dioxide 22 Anion Gap 12 BUN 92 H Creatinine 1.23 Estim Creat Clear Calc 71.6 Estimated GFR 59 POC Glucose Random Glucose 216 H Fasting Glucose Estimat Average Glucose Hemoglobin A1c % Lactic Acid Calcium 9.2 Phosphorus 3.7 Magnesium Ferritin Total Bilirubin Direct Bilirubin AST ALT Alkaline Phosphatase Lactate Dehydrogenase Total Creatine Kinase Troponin I High Sens C-Reactive Protein B-Natriuretic Peptide Total Protein Albumin Procalcitonin Urine Color Urine Appearance Urine pH Ur Specific [place] Urine Protein Urine Glucose (UA) Urine Ketones Urine Blood Urine Nitrite Ur Leukocyte Esterase Urine RBC Urine WBC Ur Squamous Epith Cells Amorphous Sediment Urine Bacteria Hyaline Casts Urine Mucus Urine Osmolality Ur Random Sodium Ur Random Potassium Urine Creatinine Urine Microalbumin Microalb/Creat Ratio Nasal Screen MRSA (PCR) Nasal S. aureus Screen Nasal MRSA/S.aureus Interp Gastric Occult Blood Stool Occult Blood Vancomycin Trough Random Vancomycin Heparin Dep Plt Ab OD Hep-Induced Plt Ab [place] COVID-19 ([facility]) COVID-19 Clin Com Influenza Type A (PCR) Influenza Type B (PCR) L.pneumophila IgM Ab Ur L.pneumophila Ag Pneumocystis Source Pneumocyst jiroveci PCR RSV RNA Qual (PCR) SARS-CoV-2 RNA (RT-PCR) Blood Type Antibody Screen 06/01/21 06/01/21 06/01/21 06:16 11:36 12:24 WBC RBC Hgb Hct MCV MCH MCHC RDW Plt Count MPV Immature Gran % (Auto) Neut % (Auto) Lymph % (Auto) [place] % (Auto) Eos % (Auto) Baso % (Auto) Lymph # (Auto) [place] # (Auto) Eos # (Auto) Baso # (Auto) Abs Immat Gran (auto) Absolute Neuts (auto) Absolute Nucleated RBC Nucleated RBC % (auto) Neutrophils % (Manual) Band Neutrophils % Lymphocytes % (Manual) Atypical Lymphs % (Man) Monocytes % (Manual) Eosinophils % (Manual) Basophils % (Manual) Metamyelocytes % Myelocytes % Abs Neuts (Manual) Lymphocytes # (Manual) Atyp Lymphs # (Manual) Monocytes # (Manual) Eosinophils # (Manual) Basophils # (Manual) Metamyelocytes # Myelocytes # Smudge Cells Platelet Estimate Large Platelets Plt Morphology Comment RBC Morphology Polychromasia Hypochromasia Basophilic Stippling Microcytosis Macrocytosis Tear Drop Cells Ovalocytes Acanthocytes (Spur) Schistocytes Smear Tech's Comments Smear Path Review PT INR D-Dimer High Sensitivty 2978 Hep-Ind Thrombocytop Com VBG pH VBG pCO2 VBG pO2 VBG HCO3 VBG O2 Saturation VBG Base Excess Sodium Potassium Chloride Carbon Dioxide Anion Gap BUN Creatinine Estim Creat Clear Calc Estimated GFR POC Glucose 186 H 223 H Random Glucose Fasting Glucose Estimat Average Glucose Hemoglobin A1c % Lactic Acid Calcium Phosphorus Magnesium Ferritin Total Bilirubin Direct Bilirubin AST ALT Alkaline Phosphatase Lactate Dehydrogenase Total Creatine Kinase Troponin I High Sens C-Reactive Protein B-Natriuretic Peptide Total Protein Albumin Procalcitonin Urine Color Urine Appearance Urine pH Ur Specific [place] Urine Protein Urine Glucose (UA) Urine Ketones Urine Blood Urine Nitrite Ur Leukocyte Esterase Urine RBC Urine WBC Ur Squamous Epith Cells Amorphous Sediment Urine Bacteria Hyaline Casts Urine Mucus Urine Osmolality Ur Random Sodium Ur Random Potassium Urine Creatinine Urine Microalbumin Microalb/Creat Ratio Nasal Screen MRSA (PCR) Nasal S. aureus Screen Nasal MRSA/S.aureus Interp Gastric Occult Blood Stool Occult Blood Vancomycin Trough Random Vancomycin Heparin Dep Plt Ab OD Hep-Induced Plt Ab [place] COVID-19 ([facility]) COVID-19 Clin Com Influenza Type A (PCR) Influenza Type B (PCR) L.pneumophila IgM Ab Ur L.pneumophila Ag Pneumocystis Source Pneumocyst jiroveci PCR RSV RNA Qual (PCR) SARS-CoV-2 RNA (RT-PCR) Blood Type Antibody Screen 06/01/21 06/02/21 06/02/21 18:07 00:19 05:30 WBC RBC Hgb Hct MCV MCH MCHC RDW Plt Count MPV Immature Gran % (Auto) Neut % (Auto) Lymph % (Auto) [place] % (Auto) Eos % (Auto) Baso % (Auto) Lymph # (Auto) [place] # (Auto) Eos # (Auto) Baso # (Auto) Abs Immat Gran (auto) Absolute Neuts (auto) Absolute Nucleated RBC Nucleated RBC % (auto) Neutrophils % (Manual) Band Neutrophils % Lymphocytes % (Manual) Atypical Lymphs % (Man) Monocytes % (Manual) Eosinophils % (Manual) Basophils % (Manual) Metamyelocytes % Myelocytes % Abs Neuts (Manual) Lymphocytes # (Manual) Atyp Lymphs # (Manual) Monocytes # (Manual) Eosinophils # (Manual) Basophils # (Manual) Metamyelocytes # Myelocytes # Smudge Cells Platelet Estimate Large Platelets Plt Morphology Comment RBC Morphology Polychromasia Hypochromasia Basophilic Stippling Microcytosis Macrocytosis Tear Drop Cells Ovalocytes Acanthocytes (Spur) Schistocytes Smear Tech's Comments Smear Path Review PT INR D-Dimer High Sensitivty Hep-Ind Thrombocytop Com VBG pH VBG pCO2 VBG pO2 VBG HCO3 VBG O2 Saturation VBG Base Excess Sodium 143 Potassium 4.8 Chloride 115 H Carbon Dioxide 24 Anion Gap 9 L BUN 78 H Creatinine 1.00 Estim Creat Clear Calc 89.1 Estimated GFR > 60 POC Glucose 303 H 252 H Random Glucose 282 H Fasting Glucose Estimat Average Glucose Hemoglobin A1c % Lactic Acid Calcium 8.8 Phosphorus 3.5 Magnesium 1.8 Ferritin Total Bilirubin Direct Bilirubin AST ALT Alkaline Phosphatase Lactate Dehydrogenase Total Creatine Kinase Troponin I High Sens C-Reactive Protein B-Natriuretic Peptide Total Protein Albumin Procalcitonin Urine Color Urine Appearance Urine pH Ur Specific [place] Urine Protein Urine Glucose (UA) Urine Ketones Urine Blood Urine Nitrite Ur Leukocyte Esterase Urine RBC Urine WBC Ur Squamous Epith Cells Amorphous Sediment Urine Bacteria Hyaline Casts Urine Mucus Urine Osmolality Ur Random Sodium Ur Random Potassium Urine Creatinine Urine Microalbumin Microalb/Creat Ratio Nasal Screen MRSA (PCR) Nasal S. aureus Screen Nasal MRSA/S.aureus Interp Gastric Occult Blood Stool Occult Blood Vancomycin Trough Random Vancomycin Heparin Dep Plt Ab OD Hep-Induced Plt Ab [place] COVID-19 ([facility]) COVID-19 Clin Com Influenza Type A (PCR) Influenza Type B (PCR) L.pneumophila IgM Ab Ur L.pneumophila Ag Pneumocystis Source Pneumocyst jiroveci PCR RSV RNA Qual (PCR) SARS-CoV-2 RNA (RT-PCR) Blood Type Antibody Screen 06/02/21 06/02/21 06/02/21 05:30 05:32 05:33 WBC 9.1 RBC 2.82 L Hgb 8.0 L Hct 26.8 L MCV 95.0 MCH 28.4 MCHC 29.9 L RDW 17.5 H Plt Count 190 MPV 11.4 Immature Gran % (Auto) Neut % (Auto) Lymph % (Auto) [place] % (Auto) Eos % (Auto) Baso % (Auto) Lymph # (Auto) [place] # (Auto) Eos # (Auto) Baso # (Auto) Abs Immat Gran (auto) Absolute Neuts (auto) Absolute Nucleated RBC 0.020 H Nucleated RBC % (auto) 0.2 Neutrophils % (Manual) Band Neutrophils % Lymphocytes % (Manual) Atypical Lymphs % (Man) Monocytes % (Manual) Eosinophils % (Manual) Basophils % (Manual) Metamyelocytes % Myelocytes % Abs Neuts (Manual) Lymphocytes # (Manual) Atyp Lymphs # (Manual) Monocytes # (Manual) Eosinophils # (Manual) Basophils # (Manual) Metamyelocytes # Myelocytes # Smudge Cells Platelet Estimate Large Platelets Plt Morphology Comment RBC Morphology Polychromasia Hypochromasia Basophilic Stippling Microcytosis Macrocytosis Tear Drop Cells Ovalocytes Acanthocytes (Spur) Schistocytes Smear Tech's Comments Smear Path Review PT INR D-Dimer High Sensitivty Hep-Ind Thrombocytop Com VBG pH 7.36 VBG pCO2 39 VBG pO2 48 VBG HCO3 22 VBG O2 Saturation 73.0 VBG Base Excess -2.3 Sodium Potassium Chloride Carbon Dioxide Anion Gap BUN Creatinine Estim Creat Clear Calc Estimated GFR POC Glucose 240 H Random Glucose Fasting Glucose Estimat Average Glucose Hemoglobin A1c % Lactic Acid Calcium Phosphorus Magnesium Ferritin Total Bilirubin Direct Bilirubin AST ALT Alkaline Phosphatase Lactate Dehydrogenase Total Creatine Kinase Troponin I High Sens C-Reactive Protein B-Natriuretic Peptide Total Protein Albumin Procalcitonin Urine Color Urine Appearance Urine pH Ur Specific [place] Urine Protein Urine Glucose (UA) Urine Ketones Urine Blood Urine Nitrite Ur Leukocyte Esterase Urine RBC Urine WBC Ur Squamous Epith Cells Amorphous Sediment Urine Bacteria Hyaline Casts Urine Mucus Urine Osmolality Ur Random Sodium Ur Random Potassium Urine Creatinine Urine Microalbumin Microalb/Creat Ratio Nasal Screen MRSA (PCR) Nasal S. aureus Screen Nasal MRSA/S.aureus Interp Gastric Occult Blood Stool Occult Blood Vancomycin Trough Random Vancomycin Heparin Dep Plt Ab OD Hep-Induced Plt Ab [place] COVID-19 ([facility]) COVID-19 Clin Com Influenza Type A (PCR) Influenza Type B (PCR) L.pneumophila IgM Ab Ur L.pneumophila Ag Pneumocystis Source Pneumocyst jiroveci PCR RSV RNA Qual (PCR) SARS-CoV-2 RNA (RT-PCR) Blood Type Antibody Screen 06/02/21 06/02/21 06/02/21 11:18 16:55 23:33 WBC RBC Hgb Hct MCV MCH MCHC RDW Plt Count MPV Immature Gran % (Auto) Neut % (Auto) Lymph % (Auto) [place] % (Auto) Eos % (Auto) Baso % (Auto) Lymph # (Auto) [place] # (Auto) Eos # (Auto) Baso # (Auto) Abs Immat Gran (auto) Absolute Neuts (auto) Absolute Nucleated RBC Nucleated RBC % (auto) Neutrophils % (Manual) Band Neutrophils % Lymphocytes % (Manual) Atypical Lymphs % (Man) Monocytes % (Manual) Eosinophils % (Manual) Basophils % (Manual) Metamyelocytes % Myelocytes % Abs Neuts (Manual) Lymphocytes # (Manual) Atyp Lymphs # (Manual) Monocytes # (Manual) Eosinophils # (Manual) Basophils # (Manual) Metamyelocytes # Myelocytes # Smudge Cells Platelet Estimate Large Platelets Plt Morphology Comment RBC Morphology Polychromasia Hypochromasia Basophilic Stippling Microcytosis Macrocytosis Tear Drop Cells Ovalocytes Acanthocytes (Spur) Schistocytes Smear Tech's Comments Smear Path Review PT INR D-Dimer High Sensitivty Hep-Ind Thrombocytop Com VBG pH VBG pCO2 VBG pO2 VBG HCO3 VBG O2 Saturation VBG Base Excess Sodium Potassium Chloride Carbon Dioxide Anion Gap BUN Creatinine Estim Creat Clear Calc Estimated GFR POC Glucose 255 H 294 H 247 H Random Glucose Fasting Glucose Estimat Average Glucose Hemoglobin A1c % Lactic Acid Calcium Phosphorus Magnesium Ferritin Total Bilirubin Direct Bilirubin AST ALT Alkaline Phosphatase Lactate Dehydrogenase Total Creatine Kinase Troponin I High Sens C-Reactive Protein B-Natriuretic Peptide Total Protein Albumin Procalcitonin Urine Color Urine Appearance Urine pH Ur Specific [place] Urine Protein Urine Glucose (UA) Urine Ketones Urine Blood Urine Nitrite Ur Leukocyte Esterase Urine RBC Urine WBC Ur Squamous Epith Cells Amorphous Sediment Urine Bacteria Hyaline Casts Urine Mucus Urine Osmolality Ur Random Sodium Ur Random Potassium Urine Creatinine Urine Microalbumin Microalb/Creat Ratio Nasal Screen MRSA (PCR) Nasal S. aureus Screen Nasal MRSA/S.aureus Interp Gastric Occult Blood Stool Occult Blood Vancomycin Trough Random Vancomycin Heparin Dep Plt Ab OD Hep-Induced Plt Ab [place] COVID-19 ([facility]) COVID-19 Clin Com Influenza Type A (PCR) Influenza Type B (PCR) L.pneumophila IgM Ab Ur L.pneumophila Ag Pneumocystis Source Pneumocyst jiroveci PCR RSV RNA Qual (PCR) SARS-CoV-2 RNA (RT-PCR) Blood Type Antibody Screen 06/03/21 06/03/21 06/03/21 06:03 11:24 13:11 WBC RBC Hgb Hct MCV MCH MCHC RDW Plt Count MPV Immature Gran % (Auto) Neut % (Auto) Lymph % (Auto) [place] % (Auto) Eos % (Auto) Baso % (Auto) Lymph # (Auto) [place] # (Auto) Eos # (Auto) Baso # (Auto) Abs Immat Gran (auto) Absolute Neuts (auto) Absolute Nucleated RBC Nucleated RBC % (auto) Neutrophils % (Manual) Band Neutrophils % Lymphocytes % (Manual) Atypical Lymphs % (Man) Monocytes % (Manual) Eosinophils % (Manual) Basophils % (Manual) Metamyelocytes % Myelocytes % Abs Neuts (Manual) Lymphocytes # (Manual) Atyp Lymphs # (Manual) Monocytes # (Manual) Eosinophils # (Manual) Basophils # (Manual) Metamyelocytes # Myelocytes # Smudge Cells Platelet Estimate Large Platelets Plt Morphology Comment RBC Morphology Polychromasia Hypochromasia Basophilic Stippling Microcytosis Macrocytosis Tear Drop Cells Ovalocytes Acanthocytes (Spur) Schistocytes Smear Tech's Comments Smear Path Review PT INR D-Dimer High Sensitivty Hep-Ind Thrombocytop Com VBG pH VBG pCO2 VBG pO2 VBG HCO3 VBG O2 Saturation VBG Base Excess Sodium 145 Potassium 4.3 Chloride 113 H Carbon Dioxide 23 Anion Gap 13 BUN 74 H Creatinine 1.05 Estim Creat Clear Calc 85.7 Estimated GFR > 60 POC Glucose 260 H 215 H Random Glucose 197 H Fasting Glucose Estimat Average Glucose Hemoglobin A1c % Lactic Acid Calcium 9.2 Phosphorus 3.9 Magnesium Ferritin Total Bilirubin Direct Bilirubin AST ALT Alkaline Phosphatase Lactate Dehydrogenase Total Creatine Kinase Troponin I High Sens C-Reactive Protein B-Natriuretic Peptide Total Protein Albumin Procalcitonin Urine Color Urine Appearance Urine pH Ur Specific [place] Urine Protein Urine Glucose (UA) Urine Ketones Urine Blood Urine Nitrite Ur Leukocyte Esterase Urine RBC Urine WBC Ur Squamous Epith Cells Amorphous Sediment Urine Bacteria Hyaline Casts Urine Mucus Urine Osmolality Ur Random Sodium Ur Random Potassium Urine Creatinine Urine Microalbumin Microalb/Creat Ratio Nasal Screen MRSA (PCR) Nasal S. aureus Screen Nasal MRSA/S.aureus Interp Gastric Occult Blood Stool Occult Blood Vancomycin Trough Random Vancomycin Heparin Dep Plt Ab OD Hep-Induced Plt Ab [place] COVID-19 ([facility]) COVID-19 Clin Com Influenza Type A (PCR) Influenza Type B (PCR) L.pneumophila IgM Ab Ur L.pneumophila Ag Pneumocystis Source Pneumocyst jiroveci PCR RSV RNA Qual (PCR) SARS-CoV-2 RNA (RT-PCR) Blood Type Antibody Screen 06/03/21 06/03/21 06/04/21 18:01 23:09 00:17 WBC RBC Hgb Hct MCV MCH MCHC RDW Plt Count MPV Immature Gran % (Auto) Neut % (Auto) Lymph % (Auto) [place] % (Auto) Eos % (Auto) Baso % (Auto) Lymph # (Auto) [place] # (Auto) Eos # (Auto) Baso # (Auto) Abs Immat Gran (auto) Absolute Neuts (auto) Absolute Nucleated RBC Nucleated RBC % (auto) Neutrophils % (Manual) Band Neutrophils % Lymphocytes % (Manual) Atypical Lymphs % (Man) Monocytes % (Manual) Eosinophils % (Manual) Basophils % (Manual) Metamyelocytes % Myelocytes % Abs Neuts (Manual) Lymphocytes # (Manual) Atyp Lymphs # (Manual) Monocytes # (Manual) Eosinophils # (Manual) Basophils # (Manual) Metamyelocytes # Myelocytes # Smudge Cells Platelet Estimate Large Platelets Plt Morphology Comment RBC Morphology Polychromasia Hypochromasia Basophilic Stippling Microcytosis Macrocytosis Tear Drop Cells Ovalocytes Acanthocytes (Spur) Schistocytes Smear Tech's Comments Smear Path Review PT INR D-Dimer High Sensitivty Hep-Ind Thrombocytop Com VBG pH VBG pCO2 VBG pO2 VBG HCO3 VBG O2 Saturation VBG Base Excess Sodium Potassium Chloride Carbon Dioxide Anion Gap BUN Creatinine Estim Creat Clear Calc Estimated GFR POC Glucose 184 H 138 H 168 H Random Glucose Fasting Glucose Estimat Average Glucose Hemoglobin A1c % Lactic Acid Calcium Phosphorus Magnesium Ferritin Total Bilirubin Direct Bilirubin AST ALT Alkaline Phosphatase Lactate Dehydrogenase Total Creatine Kinase Troponin I High Sens C-Reactive Protein B-Natriuretic Peptide Total Protein Albumin Procalcitonin Urine Color Urine Appearance Urine pH Ur Specific [place] Urine Protein Urine Glucose (UA) Urine Ketones Urine Blood Urine Nitrite Ur Leukocyte Esterase Urine RBC Urine WBC Ur Squamous Epith Cells Amorphous Sediment Urine Bacteria Hyaline Casts Urine Mucus Urine Osmolality Ur Random Sodium Ur Random Potassium Urine Creatinine Urine Microalbumin Microalb/Creat Ratio Nasal Screen MRSA (PCR) Nasal S. aureus Screen Nasal MRSA/S.aureus Interp Gastric Occult Blood Stool Occult Blood Vancomycin Trough Random Vancomycin Heparin Dep Plt Ab OD Hep-Induced Plt Ab [place] COVID-19 ([facility]) COVID-19 Clin Com Influenza Type A (PCR) Influenza Type B (PCR) L.pneumophila IgM Ab Ur L.pneumophila Ag Pneumocystis Source Pneumocyst jiroveci PCR RSV RNA Qual (PCR) SARS-CoV-2 RNA (RT-PCR) Blood Type Antibody Screen 06/04/21 06/04/21 06/04/21 05:07 05:07 05:07 WBC 12.6 H RBC 2.82 L Hgb 8.2 L Hct 26.8 L MCV 95.0 MCH 29.1 MCHC 30.6 L RDW 18.4 H Plt Count 222 MPV 11.6 Immature Gran % (Auto) Neut % (Auto) Lymph % (Auto) [place] % (Auto) Eos % (Auto) Baso % (Auto) Lymph # (Auto) [place] # (Auto) Eos # (Auto) Baso # (Auto) Abs Immat Gran (auto) Absolute Neuts (auto) Absolute Nucleated RBC 0.090 H Nucleated RBC % (auto) 0.7 H Neutrophils % (Manual) Band Neutrophils % Lymphocytes % (Manual) Atypical Lymphs % (Man) Monocytes % (Manual) Eosinophils % (Manual) Basophils % (Manual) Metamyelocytes % Myelocytes % Abs Neuts (Manual) Lymphocytes # (Manual) Atyp Lymphs # (Manual) Monocytes # (Manual) Eosinophils # (Manual) Basophils # (Manual) Metamyelocytes # Myelocytes # Smudge Cells Platelet Estimate Large Platelets Plt Morphology Comment RBC Morphology Polychromasia Hypochromasia Basophilic Stippling Microcytosis Macrocytosis Tear Drop Cells Ovalocytes Acanthocytes (Spur) Schistocytes Smear Tech's Comments Smear Path Review PT INR D-Dimer High Sensitivty 2011 Hep-Ind Thrombocytop Com VBG pH VBG pCO2 VBG pO2 VBG HCO3 VBG O2 Saturation VBG Base Excess Sodium 143 Potassium 4.3 Chloride 112 H Carbon Dioxide 24 Anion Gap 11 L BUN 81 H Creatinine 1.03 Estim Creat Clear Calc 87.3 Estimated GFR > 60 POC Glucose Random Glucose 198 H Fasting Glucose Estimat Average Glucose Hemoglobin A1c % Lactic Acid Calcium 8.7 Phosphorus 4.5 Magnesium 2.2 Ferritin 758 H Total Bilirubin Direct Bilirubin AST ALT Alkaline Phosphatase Lactate Dehydrogenase 274 H Total Creatine Kinase Troponin I High Sens C-Reactive Protein B-Natriuretic Peptide Total Protein Albumin Procalcitonin Urine Color Urine Appearance Urine pH Ur Specific [place] Urine Protein Urine Glucose (UA) Urine Ketones Urine Blood Urine Nitrite Ur Leukocyte Esterase Urine RBC Urine WBC Ur Squamous Epith Cells Amorphous Sediment Urine Bacteria Hyaline Casts Urine Mucus Urine Osmolality Ur Random Sodium Ur Random Potassium Urine Creatinine Urine Microalbumin Microalb/Creat Ratio Nasal Screen MRSA (PCR) Nasal S. aureus Screen Nasal MRSA/S.aureus Interp Gastric Occult Blood Stool Occult Blood Vancomycin Trough Random Vancomycin Heparin Dep Plt Ab OD Hep-Induced Plt Ab [place] COVID-19 ([facility]) COVID-19 Clin Com Influenza Type A (PCR) Influenza Type B (PCR) L.pneumophila IgM Ab Ur L.pneumophila Ag Pneumocystis Source Pneumocyst jiroveci PCR RSV RNA Qual (PCR) SARS-CoV-2 RNA (RT-PCR) Blood Type Antibody Screen 06/04/21 06/04/21 06/04/21 05:07 05:10 11:55 WBC RBC Hgb Hct MCV MCH MCHC RDW Plt Count MPV Immature Gran % (Auto) Neut % (Auto) Lymph % (Auto) [place] % (Auto) Eos % (Auto) Baso % (Auto) Lymph # (Auto) [place] # (Auto) Eos # (Auto) Baso # (Auto) Abs Immat Gran (auto) Absolute Neuts (auto) Absolute Nucleated RBC Nucleated RBC % (auto) Neutrophils % (Manual) Band Neutrophils % Lymphocytes % (Manual) Atypical Lymphs % (Man) Monocytes % (Manual) Eosinophils % (Manual) Basophils % (Manual) Metamyelocytes % Myelocytes % Abs Neuts (Manual) Lymphocytes # (Manual) Atyp Lymphs # (Manual) Monocytes # (Manual) Eosinophils # (Manual) Basophils # (Manual) Metamyelocytes # Myelocytes # Smudge Cells Platelet Estimate Large Platelets Plt Morphology Comment RBC Morphology Polychromasia Hypochromasia Basophilic Stippling Microcytosis Macrocytosis Tear Drop Cells Ovalocytes Acanthocytes (Spur) Schistocytes Smear Tech's Comments Smear Path Review PT INR D-Dimer High Sensitivty Hep-Ind Thrombocytop Com VBG pH 7.35 VBG pCO2 44 VBG pO2 48 VBG HCO3 24 VBG O2 Saturation 76.0 VBG Base Excess -0.8 Sodium Potassium Chloride Carbon Dioxide Anion Gap BUN Creatinine Estim Creat Clear Calc Estimated GFR POC Glucose 165 H Random Glucose Fasting Glucose Estimat Average Glucose Hemoglobin A1c % Lactic Acid Calcium Phosphorus Magnesium Ferritin Total Bilirubin Direct Bilirubin AST ALT Alkaline Phosphatase Lactate Dehydrogenase Total Creatine Kinase Troponin I High Sens C-Reactive Protein B-Natriuretic Peptide 785 H Total Protein Albumin Procalcitonin Urine Color Urine Appearance Urine pH Ur Specific [place] Urine Protein Urine Glucose (UA) Urine Ketones Urine Blood Urine Nitrite Ur Leukocyte Esterase Urine RBC Urine WBC Ur Squamous Epith Cells Amorphous Sediment Urine Bacteria Hyaline Casts Urine Mucus Urine Osmolality Ur Random Sodium Ur Random Potassium Urine Creatinine Urine Microalbumin Microalb/Creat Ratio Nasal Screen MRSA (PCR) Nasal S. aureus Screen Nasal MRSA/S.aureus Interp Gastric Occult Blood Stool Occult Blood Vancomycin Trough Random Vancomycin Heparin Dep Plt Ab OD Hep-Induced Plt Ab [place] COVID-19 ([facility]) COVID-19 Clin Com Influenza Type A (PCR) Influenza Type B (PCR) L.pneumophila IgM Ab Ur L.pneumophila Ag Pneumocystis Source Pneumocyst jiroveci PCR RSV RNA Qual (PCR) SARS-CoV-2 RNA (RT-PCR) Blood Type Antibody Screen 06/04/21 06/05/21 06/05/21 17:57 00:14 05:17 WBC RBC Hgb Hct MCV MCH MCHC RDW Plt Count MPV Immature Gran % (Auto) Neut % (Auto) Lymph % (Auto) [place] % (Auto) Eos % (Auto) Baso % (Auto) Lymph # (Auto) [place] # (Auto) Eos # (Auto) Baso # (Auto) Abs Immat Gran (auto) Absolute Neuts (auto) Absolute Nucleated RBC Nucleated RBC % (auto) Neutrophils % (Manual) Band Neutrophils % Lymphocytes % (Manual) Atypical Lymphs % (Man) Monocytes % (Manual) Eosinophils % (Manual) Basophils % (Manual) Metamyelocytes % Myelocytes % Abs Neuts (Manual) Lymphocytes # (Manual) Atyp Lymphs # (Manual) Monocytes # (Manual) Eosinophils # (Manual) Basophils # (Manual) Metamyelocytes # Myelocytes # Smudge Cells Platelet Estimate Large Platelets Plt Morphology Comment RBC Morphology Polychromasia Hypochromasia Basophilic Stippling Microcytosis Macrocytosis Tear Drop Cells Ovalocytes Acanthocytes (Spur) Schistocytes Smear Tech's Comments Smear Path Review PT INR D-Dimer High Sensitivty Hep-Ind Thrombocytop Com VBG pH VBG pCO2 VBG pO2 VBG HCO3 VBG O2 Saturation VBG Base Excess Sodium Potassium Chloride Carbon Dioxide Anion Gap BUN Creatinine Estim Creat Clear Calc Estimated GFR POC Glucose 201 H 215 H 187 H Random Glucose Fasting Glucose Estimat Average Glucose Hemoglobin A1c % Lactic Acid Calcium Phosphorus Magnesium Ferritin Total Bilirubin Direct Bilirubin AST ALT Alkaline Phosphatase Lactate Dehydrogenase Total Creatine Kinase Troponin I High Sens C-Reactive Protein B-Natriuretic Peptide Total Protein Albumin Procalcitonin Urine Color Urine Appearance Urine pH Ur Specific [place] Urine Protein Urine Glucose (UA) Urine Ketones Urine Blood Urine Nitrite Ur Leukocyte Esterase Urine RBC Urine WBC Ur Squamous Epith Cells Amorphous Sediment Urine Bacteria Hyaline Casts Urine Mucus Urine Osmolality Ur Random Sodium Ur Random Potassium Urine Creatinine Urine Microalbumin Microalb/Creat Ratio Nasal Screen MRSA (PCR) Nasal S. aureus Screen Nasal MRSA/S.aureus Interp Gastric Occult Blood Stool Occult Blood Vancomycin Trough Random Vancomycin Heparin Dep Plt Ab OD Hep-Induced Plt Ab [place] COVID-19 ([facility]) COVID-19 Clin Com Influenza Type A (PCR) Influenza Type B (PCR) L.pneumophila IgM Ab Ur L.pneumophila Ag Pneumocystis Source Pneumocyst jiroveci PCR RSV RNA Qual (PCR) SARS-CoV-2 RNA (RT-PCR) Blood Type Antibody Screen 06/05/21 06/05/21 06/05/21 05:20 05:20 05:23 WBC 10.7 RBC 2.90 L Hgb 8.3 L Hct 27.6 L MCV 95.2 MCH 28.6 MCHC 30.1 L RDW 18.4 H Plt Count 179 MPV 11.0 Immature Gran % (Auto) 4.2 H Neut % (Auto) 84.8 H Lymph % (Auto) 5.0 L [place] % (Auto) 5.8 Eos % (Auto) 0.0 Baso % (Auto) 0.2 Lymph # (Auto) 0.5 L [place] # (Auto) 0.6 Eos # (Auto) 0.0 Baso # (Auto) 0.0 Abs Immat Gran (auto) 0.45 H Absolute Neuts (auto) 9.0 H Absolute Nucleated RBC 0.140 H Nucleated RBC % (auto) 1.3 H Neutrophils % (Manual) Band Neutrophils % Lymphocytes % (Manual) Atypical Lymphs % (Man) Monocytes % (Manual) Eosinophils % (Manual) Basophils % (Manual) Metamyelocytes % Myelocytes % Abs Neuts (Manual) Lymphocytes # (Manual) Atyp Lymphs # (Manual) Monocytes # (Manual) Eosinophils # (Manual) Basophils # (Manual) Metamyelocytes # Myelocytes # Smudge Cells Platelet Estimate Large Platelets Plt Morphology Comment RBC Morphology Polychromasia Hypochromasia Basophilic Stippling Microcytosis Macrocytosis Tear Drop Cells Ovalocytes Acanthocytes (Spur) Schistocytes Smear Tech's Comments Smear Path Review PT INR D-Dimer High Sensitivty Hep-Ind Thrombocytop Com VBG pH 7.38 VBG pCO2 46 VBG pO2 53 VBG HCO3 28 H VBG O2 Saturation 82.0 VBG Base Excess 2.9 Sodium 145 Potassium 4.2 Chloride 111 H Carbon Dioxide 26 Anion Gap 12 BUN 80 H Creatinine 0.91 Estim Creat Clear Calc 98.8 Estimated GFR > 60 POC Glucose Random Glucose 220 H Fasting Glucose Estimat Average Glucose Hemoglobin A1c % Lactic Acid Calcium 8.9 Phosphorus 4.3 Magnesium 2.1 Ferritin Total Bilirubin 0.6 Direct Bilirubin AST 18 ALT 27 Alkaline Phosphatase 49 Lactate Dehydrogenase Total Creatine Kinase Troponin I High Sens C-Reactive Protein B-Natriuretic Peptide Total Protein 5.2 L Albumin 2.7 L Procalcitonin Urine Color Urine Appearance Urine pH Ur Specific [place] Urine Protein Urine Glucose (UA) Urine Ketones Urine Blood Urine Nitrite Ur Leukocyte Esterase Urine RBC Urine WBC Ur Squamous Epith Cells Amorphous Sediment Urine Bacteria Hyaline Casts Urine Mucus Urine Osmolality Ur Random Sodium Ur Random Potassium Urine Creatinine Urine Microalbumin Microalb/Creat Ratio Nasal Screen MRSA (PCR) Nasal S. aureus Screen Nasal MRSA/S.aureus Interp Gastric Occult Blood Stool Occult Blood Vancomycin Trough Random Vancomycin Heparin Dep Plt Ab OD Hep-Induced Plt Ab [place] COVID-19 ([facility]) COVID-19 Clin Com Influenza Type A (PCR) Influenza Type B (PCR) L.pneumophila IgM Ab Ur L.pneumophila Ag Pneumocystis Source Pneumocyst jiroveci PCR RSV RNA Qual (PCR) SARS-CoV-2 RNA (RT-PCR) Blood Type Antibody Screen 06/05/21 06/05/21 06/05/21 12:40 18:11 23:25 WBC RBC Hgb Hct MCV MCH MCHC RDW Plt Count MPV Immature Gran % (Auto) Neut % (Auto) Lymph % (Auto) [place] % (Auto) Eos % (Auto) Baso % (Auto) Lymph # (Auto) [place] # (Auto) Eos # (Auto) Baso # (Auto) Abs Immat Gran (auto) Absolute Neuts (auto) Absolute Nucleated RBC Nucleated RBC % (auto) Neutrophils % (Manual) Band Neutrophils % Lymphocytes % (Manual) Atypical Lymphs % (Man) Monocytes % (Manual) Eosinophils % (Manual) Basophils % (Manual) Metamyelocytes % Myelocytes % Abs Neuts (Manual) Lymphocytes # (Manual) Atyp Lymphs # (Manual) Monocytes # (Manual) Eosinophils # (Manual) Basophils # (Manual) Metamyelocytes # Myelocytes # Smudge Cells Platelet Estimate Large Platelets Plt Morphology Comment RBC Morphology Polychromasia Hypochromasia Basophilic Stippling Microcytosis Macrocytosis Tear Drop Cells Ovalocytes Acanthocytes (Spur) Schistocytes Smear Tech's Comments Smear Path Review PT INR D-Dimer High Sensitivty Hep-Ind Thrombocytop Com VBG pH VBG pCO2 VBG pO2 VBG HCO3 VBG O2 Saturation VBG Base Excess Sodium Potassium Chloride Carbon Dioxide Anion Gap BUN Creatinine Estim Creat Clear Calc Estimated GFR POC Glucose 231 H 214 H 151 H Random Glucose Fasting Glucose Estimat Average Glucose Hemoglobin A1c % Lactic Acid Calcium Phosphorus Magnesium Ferritin Total Bilirubin Direct Bilirubin AST ALT Alkaline Phosphatase Lactate Dehydrogenase Total Creatine Kinase Troponin I High Sens C-Reactive Protein B-Natriuretic Peptide Total Protein Albumin Procalcitonin Urine Color Urine Appearance Urine pH Ur Specific [place] Urine Protein Urine Glucose (UA) Urine Ketones Urine Blood Urine Nitrite Ur Leukocyte Esterase Urine RBC Urine WBC Ur Squamous Epith Cells Amorphous Sediment Urine Bacteria Hyaline Casts Urine Mucus Urine Osmolality Ur Random Sodium Ur Random Potassium Urine Creatinine Urine Microalbumin Microalb/Creat Ratio Nasal Screen MRSA (PCR) Nasal S. aureus Screen Nasal MRSA/S.aureus Interp Gastric Occult Blood Stool Occult Blood Vancomycin Trough Random Vancomycin Heparin Dep Plt Ab OD Hep-Induced Plt Ab [place] COVID-19 (MARISA) COVID-19 Clin Com Influenza Type A (PCR) Influenza Type B (PCR) L.pneumophila IgM Ab Ur L.pneumophila Ag Pneumocystis Source Pneumocyst jiroveci PCR RSV RNA Qual (PCR) SARS-CoV-2 RNA (RT-PCR) Blood Type Antibody Screen 06/06/21 06/06/21 06/06/21 05:32 05:34 05:35 WBC 9.9 RBC 2.51 L Hgb 7.3 L Hct 24.5 L MCV 97.6 MCH 29.1 MCHC 29.8 L RDW 19.3 H Plt Count 153 L MPV 11.1 Immature Gran % (Auto) 3.5 H Neut % (Auto) 74.7 H Lymph % (Auto) 11.5 L [place] % (Auto) 9.8 Eos % (Auto) 0.4 Baso % (Auto) 0.1 Lymph # (Auto) 1.1 L [place] # (Auto) 1.0 Eos # (Auto) 0.0 Baso # (Auto) 0.0 Abs Immat Gran (auto) 0.35 H Absolute Neuts (auto) 7.4 Absolute Nucleated RBC 0.150 H Nucleated RBC % (auto) 1.5 H Neutrophils % (Manual) Band Neutrophils % Lymphocytes % (Manual) Atypical Lymphs % (Man) Monocytes % (Manual) Eosinophils % (Manual) Basophils % (Manual) Metamyelocytes % Myelocytes % Abs Neuts (Manual) Lymphocytes # (Manual) Atyp Lymphs # (Manual) Monocytes # (Manual) Eosinophils # (Manual) Basophils # (Manual) Metamyelocytes # Myelocytes # Smudge Cells Platelet Estimate Large Platelets Plt Morphology Comment RBC Morphology Polychromasia Hypochromasia Basophilic Stippling Microcytosis Macrocytosis Tear Drop Cells Ovalocytes Acanthocytes (Spur) Schistocytes Smear Tech's Comments Smear Path Review PT INR D-Dimer High Sensitivty Hep-Ind Thrombocytop Com VBG pH 7.39 VBG pCO2 51 VBG pO2 47 VBG HCO3 31 H VBG O2 Saturation 76.0 VBG Base Excess 6.0 Sodium Potassium Chloride Carbon Dioxide Anion Gap BUN Creatinine Estim Creat Clear Calc Estimated GFR POC Glucose 94 Random Glucose Fasting Glucose Estimat Average Glucose Hemoglobin A1c % Lactic Acid Calcium Phosphorus Magnesium Ferritin Total Bilirubin Direct Bilirubin AST ALT Alkaline Phosphatase Lactate Dehydrogenase Total Creatine Kinase Troponin I High Sens C-Reactive Protein B-Natriuretic Peptide Total Protein Albumin Procalcitonin Urine Color Urine Appearance Urine pH Ur Specific [place] Urine Protein Urine Glucose (UA) Urine Ketones Urine Blood Urine Nitrite Ur Leukocyte Esterase Urine RBC Urine WBC Ur Squamous Epith Cells Amorphous Sediment Urine Bacteria Hyaline Casts Urine Mucus Urine Osmolality Ur Random Sodium Ur Random Potassium Urine Creatinine Urine Microalbumin Microalb/Creat Ratio Nasal Screen MRSA (PCR) Nasal S. aureus Screen Nasal MRSA/S.aureus Interp Gastric Occult Blood Stool Occult Blood Vancomycin Trough Random Vancomycin Heparin Dep Plt Ab OD Hep-Induced Plt Ab [place] COVID-19 (MARISA) COVID-19 Clin Com Influenza Type A (PCR) Influenza Type B (PCR) L.pneumophila IgM Ab Ur L.pneumophila Ag Pneumocystis Source Pneumocyst jiroveci PCR RSV RNA Qual (PCR) SARS-CoV-2 RNA (RT-PCR) Blood Type Antibody Screen 06/06/21 06/06/21 06/06/21 05:35 09:46 12:13 WBC RBC Hgb Hct MCV MCH MCHC RDW Plt Count MPV Immature Gran % (Auto) Neut % (Auto) Lymph % (Auto) [place] % (Auto) Eos % (Auto) Baso % (Auto) Lymph # (Auto) [place] # (Auto) Eos # (Auto) Baso # (Auto) Abs Immat Gran (auto) Absolute Neuts (auto) Absolute Nucleated RBC Nucleated RBC % (auto) Neutrophils % (Manual) Band Neutrophils % Lymphocytes % (Manual) Atypical Lymphs % (Man) Monocytes % (Manual) Eosinophils % (Manual) Basophils % (Manual) Metamyelocytes % Myelocytes % Abs Neuts (Manual) Lymphocytes # (Manual) Atyp Lymphs # (Manual) Monocytes # (Manual) Eosinophils # (Manual) Basophils # (Manual) Metamyelocytes # Myelocytes # Smudge Cells Platelet Estimate Large Platelets Plt Morphology Comment RBC Morphology Polychromasia Hypochromasia Basophilic Stippling Microcytosis Macrocytosis Tear Drop Cells Ovalocytes Acanthocytes (Spur) Schistocytes Smear Tech's Comments Smear Path Review PT INR D-Dimer High Sensitivty Hep-Ind Thrombocytop Com VBG pH VBG pCO2 VBG pO2 VBG HCO3 VBG O2 Saturation VBG Base Excess Sodium 150 H Potassium 3.5 Chloride 112 H Carbon Dioxide 30 H Anion Gap 12 BUN 89 H Creatinine 0.91 Estim Creat Clear Calc 99.2 Estimated GFR > 60 POC Glucose 120 H Random Glucose 98 D Fasting Glucose Estimat Average Glucose Hemoglobin A1c % Lactic Acid Calcium 9.4 Phosphorus 3.7 Magnesium 2.1 Ferritin Total Bilirubin Direct Bilirubin AST ALT Alkaline Phosphatase Lactate Dehydrogenase Total Creatine Kinase Troponin I High Sens C-Reactive Protein B-Natriuretic Peptide Total Protein Albumin 3.5 D Procalcitonin Urine Color Urine Appearance Urine pH Ur Specific [place] Urine Protein Urine Glucose (UA) Urine Ketones Urine Blood Urine Nitrite Ur Leukocyte Esterase Urine RBC Urine WBC Ur Squamous Epith Cells Amorphous Sediment Urine Bacteria Hyaline Casts Urine Mucus Urine Osmolality Ur Random Sodium Ur Random Potassium Urine Creatinine Urine Microalbumin Microalb/Creat Ratio Nasal Screen MRSA (PCR) Nasal S. aureus Screen Nasal MRSA/S.aureus Interp Gastric Occult Blood Stool Occult Blood Vancomycin Trough Random Vancomycin Heparin Dep Plt Ab OD Hep-Induced Plt Ab [place] COVID-19 (MARISA) COVID-19 Clin Com Influenza Type A (PCR) Influenza Type B (PCR) L.pneumophila IgM Ab Ur L.pneumophila Ag Pneumocystis Source Pneumocyst jiroveci PCR RSV RNA Qual (PCR) SARS-CoV-2 RNA (RT-PCR) Blood Type A Negative Antibody Screen NEGATIVE 06/06/21 06/06/21 06/06/21 16:46 18:10 23:28 WBC RBC Hgb Hct MCV MCH MCHC RDW Plt Count MPV Immature Gran % (Auto) Neut % (Auto) Lymph % (Auto) [place] % (Auto) Eos % (Auto) Baso % (Auto) Lymph # (Auto) [place] # (Auto) Eos # (Auto) Baso # (Auto) Abs Immat Gran (auto) Absolute Neuts (auto) Absolute Nucleated RBC Nucleated RBC % (auto) Neutrophils % (Manual) Band Neutrophils % Lymphocytes % (Manual) Atypical Lymphs % (Man) Monocytes % (Manual) Eosinophils % (Manual) Basophils % (Manual) Metamyelocytes % Myelocytes % Abs Neuts (Manual) Lymphocytes # (Manual) Atyp Lymphs # (Manual) Monocytes # (Manual) Eosinophils # (Manual) Basophils # (Manual) Metamyelocytes # Myelocytes # Smudge Cells Platelet Estimate Large Platelets Plt Morphology Comment RBC Morphology Polychromasia Hypochromasia Basophilic Stippling Microcytosis Macrocytosis Tear Drop Cells Ovalocytes Acanthocytes (Spur) Schistocytes Smear Tech's Comments Smear Path Review PT INR D-Dimer High Sensitivty Hep-Ind Thrombocytop Com VBG pH VBG pCO2 VBG pO2 VBG HCO3 VBG O2 Saturation VBG Base Excess Sodium Potassium Chloride Carbon Dioxide Anion Gap BUN Creatinine Estim Creat Clear Calc Estimated GFR POC Glucose 168 H 152 H Random Glucose Fasting Glucose Estimat Average Glucose Hemoglobin A1c % Lactic Acid Calcium Phosphorus Magnesium Ferritin Total Bilirubin Direct Bilirubin AST ALT Alkaline Phosphatase Lactate Dehydrogenase Total Creatine Kinase Troponin I High Sens C-Reactive Protein B-Natriuretic Peptide Total Protein Albumin Procalcitonin Urine Color Urine Appearance Urine pH Ur Specific [place] Urine Protein Urine Glucose (UA) Urine Ketones Urine Blood Urine Nitrite Ur Leukocyte Esterase Urine RBC Urine WBC Ur Squamous Epith Cells Amorphous Sediment Urine Bacteria Hyaline Casts Urine Mucus Urine Osmolality Ur Random Sodium Ur Random Potassium Urine Creatinine Urine Microalbumin Microalb/Creat Ratio Nasal Screen MRSA (PCR) Nasal S. aureus Screen Nasal MRSA/S.aureus Interp Gastric Occult Blood Stool Occult Blood Vancomycin Trough Random Vancomycin Heparin Dep Plt Ab OD Hep-Induced Plt Ab [place] COVID-19 (MARISA) Positive A COVID-19 Clin Com See Note Influenza Type A (PCR) Influenza Type B (PCR) L.pneumophila IgM Ab Ur L.pneumophila Ag Pneumocystis Source Pneumocyst jiroveci PCR RSV RNA Qual (PCR) SARS-CoV-2 RNA (RT-PCR) Blood Type Antibody Screen 06/07/21 06/07/21 06/07/21 05:18 05:18 05:21 WBC 13.2 H RBC 2.90 L Hgb 8.3 L Hct 28.3 L MCV 97.6 MCH 28.6 MCHC 29.3 L RDW 19.9 H Plt Count 150 L MPV 12.2 Immature Gran % (Auto) 2.0 H Neut % (Auto) 79.9 H Lymph % (Auto) 10.5 L [place] % (Auto) 7.1 Eos % (Auto) 0.4 Baso % (Auto) 0.1 Lymph # (Auto) 1.4 [place] # (Auto) 0.9 Eos # (Auto) 0.1 Baso # (Auto) 0.0 Abs Immat Gran (auto) 0.26 H Absolute Neuts (auto) 10.5 H Absolute Nucleated RBC 0.140 H Nucleated RBC % (auto) 1.1 H Neutrophils % (Manual) Band Neutrophils % Lymphocytes % (Manual) Atypical Lymphs % (Man) Monocytes % (Manual) Eosinophils % (Manual) Basophils % (Manual) Metamyelocytes % Myelocytes % Abs Neuts (Manual) Lymphocytes # (Manual) Atyp Lymphs # (Manual) Monocytes # (Manual) Eosinophils # (Manual) Basophils # (Manual) Metamyelocytes # Myelocytes # Smudge Cells Platelet Estimate Large Platelets Plt Morphology Comment RBC Morphology Polychromasia Hypochromasia Basophilic Stippling Microcytosis Macrocytosis Tear Drop Cells Ovalocytes Acanthocytes (Spur) Schistocytes Smear Tech's Comments Smear Path Review SEE NOTE PT INR D-Dimer High Sensitivty Hep-Ind Thrombocytop Com VBG pH 7.44 H VBG pCO2 45 VBG pO2 43 VBG HCO3 31 H VBG O2 Saturation 71.0 VBG Base Excess 6.4 Sodium 150 H Potassium 3.8 Chloride 113 H Carbon Dioxide 31 H Anion Gap 10 L BUN 90 H Creatinine 0.81 Estim Creat Clear Calc 112.3 Estimated GFR > 60 POC Glucose Random Glucose 121 H Fasting Glucose Estimat Average Glucose Hemoglobin A1c % Lactic Acid Calcium 9.5 Phosphorus 3.1 Magnesium 2.1 Ferritin Total Bilirubin Direct Bilirubin AST ALT Alkaline Phosphatase Lactate Dehydrogenase Total Creatine Kinase Troponin I High Sens C-Reactive Protein B-Natriuretic Peptide Total Protein Albumin 3.4 L Procalcitonin Urine Color Urine Appearance Urine pH Ur Specific [place] Urine Protein Urine Glucose (UA) Urine Ketones Urine Blood Urine Nitrite Ur Leukocyte Esterase Urine RBC Urine WBC Ur Squamous Epith Cells Amorphous Sediment Urine Bacteria Hyaline Casts Urine Mucus Urine Osmolality Ur Random Sodium Ur Random Potassium Urine Creatinine Urine Microalbumin Microalb/Creat Ratio Nasal Screen MRSA (PCR) Nasal S. aureus Screen Nasal MRSA/S.aureus Interp Gastric Occult Blood Stool Occult Blood Vancomycin Trough Random Vancomycin Heparin Dep Plt Ab OD Hep-Induced Plt Ab [place] COVID-19 (MARISA) COVID-19 Clin Com Influenza Type A (PCR) Influenza Type B (PCR) L.pneumophila IgM Ab Ur L.pneumophila Ag Pneumocystis Source Pneumocyst jiroveci PCR RSV RNA Qual (PCR) SARS-CoV-2 RNA (RT-PCR) Blood Type Antibody Screen 06/07/21 06/07/21 06/07/21 06:10 08:34 11:44 WBC RBC Hgb Hct MCV MCH MCHC RDW Plt Count MPV Immature Gran % (Auto) Neut % (Auto) Lymph % (Auto) [place] % (Auto) Eos % (Auto) Baso % (Auto) Lymph # (Auto) [place] # (Auto) Eos # (Auto) Baso # (Auto) Abs Immat Gran (auto) Absolute Neuts (auto) Absolute Nucleated RBC Nucleated RBC % (auto) Neutrophils % (Manual) Band Neutrophils % Lymphocytes % (Manual) Atypical Lymphs % (Man) Monocytes % (Manual) Eosinophils % (Manual) Basophils % (Manual) Metamyelocytes % Myelocytes % Abs Neuts (Manual) Lymphocytes # (Manual) Atyp Lymphs # (Manual) Monocytes # (Manual) Eosinophils # (Manual) Basophils # (Manual) Metamyelocytes # Myelocytes # Smudge Cells Platelet Estimate Large Platelets Plt Morphology Comment RBC Morphology Polychromasia Hypochromasia Basophilic Stippling Microcytosis Macrocytosis Tear Drop Cells Ovalocytes Acanthocytes (Spur) Schistocytes Smear Tech's Comments Smear Path Review PT 11.1 INR 1.0 D-Dimer High Sensitivty Hep-Ind Thrombocytop Com VBG pH VBG pCO2 VBG pO2 VBG HCO3 VBG O2 Saturation VBG Base Excess Sodium Potassium Chloride Carbon Dioxide Anion Gap BUN Creatinine Estim Creat Clear Calc Estimated GFR POC Glucose 111 118 H Random Glucose Fasting Glucose Estimat Average Glucose Hemoglobin A1c % Lactic Acid Calcium Phosphorus Magnesium Ferritin Total Bilirubin Direct Bilirubin AST ALT Alkaline Phosphatase Lactate Dehydrogenase Total Creatine Kinase Troponin I High Sens C-Reactive Protein B-Natriuretic Peptide Total Protein Albumin Procalcitonin Urine Color Urine Appearance Urine pH Ur Specific [place] Urine Protein Urine Glucose (UA) Urine Ketones Urine Blood Urine Nitrite Ur Leukocyte Esterase Urine RBC Urine WBC Ur Squamous Epith Cells Amorphous Sediment Urine Bacteria Hyaline Casts Urine Mucus Urine Osmolality Ur Random Sodium Ur Random Potassium Urine Creatinine Urine Microalbumin Microalb/Creat Ratio Nasal Screen MRSA (PCR) Nasal S. aureus Screen Nasal MRSA/S.aureus Interp Gastric Occult Blood Stool Occult Blood Vancomycin Trough Random Vancomycin Heparin Dep Plt Ab OD Hep-Induced Plt Ab [place] COVID-19 (MARISA) COVID-19 Clin Com Influenza Type A (PCR) Influenza Type B (PCR) L.pneumophila IgM Ab Ur L.pneumophila Ag Pneumocystis Source Pneumocyst jiroveci PCR RSV RNA Qual (PCR) SARS-CoV-2 RNA (RT-PCR) Blood Type Antibody Screen 06/07/21 13:56 WBC RBC Hgb Hct MCV MCH MCHC RDW Plt Count MPV Immature Gran % (Auto) Neut % (Auto) Lymph % (Auto) [place] % (Auto) Eos % (Auto) Baso % (Auto) Lymph # (Auto) [place] # (Auto) Eos # (Auto) Baso # (Auto) Abs Immat Gran (auto) Absolute Neuts (auto) Absolute Nucleated RBC Nucleated RBC % (auto) Neutrophils % (Manual) Band Neutrophils % Lymphocytes % (Manual) Atypical Lymphs % (Man) Monocytes % (Manual) Eosinophils % (Manual) Basophils % (Manual) Metamyelocytes % Myelocytes % Abs Neuts (Manual) Lymphocytes # (Manual) Atyp Lymphs # (Manual) Monocytes # (Manual) Eosinophils # (Manual) Basophils # (Manual) Metamyelocytes # Myelocytes # Smudge Cells Platelet Estimate Large Platelets Plt Morphology Comment RBC Morphology Polychromasia Hypochromasia Basophilic Stippling Microcytosis Macrocytosis Tear Drop Cells Ovalocytes Acanthocytes (Spur) Schistocytes Smear Tech's Comments Smear Path Review PT INR D-Dimer High Sensitivty Hep-Ind Thrombocytop Com VBG pH VBG pCO2 VBG pO2 VBG HCO3 VBG O2 Saturation VBG Base Excess Sodium Potassium Chloride Carbon Dioxide Anion Gap BUN Creatinine Estim Creat Clear Calc Estimated GFR POC Glucose 142 H Random Glucose Fasting Glucose Estimat Average Glucose Hemoglobin A1c % Lactic Acid Calcium Phosphorus Magnesium Ferritin Total Bilirubin Direct Bilirubin AST ALT Alkaline Phosphatase Lactate Dehydrogenase Total Creatine Kinase Troponin I High Sens C-Reactive Protein B-Natriuretic Peptide Total Protein Albumin Procalcitonin Urine Color Urine Appearance Urine pH Ur Specific [place] Urine Protein Urine Glucose (UA) Urine Ketones Urine Blood Urine Nitrite Ur Leukocyte Esterase Urine RBC Urine WBC Ur Squamous Epith Cells Amorphous Sediment Urine Bacteria Hyaline Casts Urine Mucus Urine Osmolality Ur Random Sodium Ur Random Potassium Urine Creatinine Urine Microalbumin Microalb/Creat Ratio Nasal Screen MRSA (PCR) Nasal S. aureus Screen Nasal MRSA/S.aureus Interp Gastric Occult Blood Stool Occult Blood Vancomycin Trough Random Vancomycin Heparin Dep Plt Ab OD Hep-Induced Plt Ab [place] COVID-19 (MARISA) COVID-19 Clin Com Influenza Type A (PCR) Influenza Type B (PCR) L.pneumophila IgM Ab Ur L.pneumophila Ag Pneumocystis Source Pneumocyst jiroveci PCR RSV RNA Qual (PCR) SARS-CoV-2 RNA (RT-PCR) Blood Type Antibody Screen Airway Other: Pt is intubated. Assessment and Plan Assessment Anesthesia Assessment: Anesthesia Plan Discussed Final Anesthetic Review Family History of Problems with Anesthesia: No History of Problems with Anesthesia: No NPO: Yes ASA Class: IV and Emergency Final Preanesthetic Review: No Changes in Pt Med Stat, Meds/Allgs Chart Reviewed, Consent Obtained/Reviewed and Anes Risks/Benef Reviewed Patient Risk: High Procedure Risk: Intermediate Anesthetic Plan Anesthetic Plan: GA Disposition: Inp. Admit - ICU
--- NOTE | 2021-06-07 16:04 | W.PM.OPN ---
Operative Note Operative Note Date of Service: 06/07/21 Narrative: Preoperative diagnosis: Respiratory failure Postoperative diagnosis: Respiratory failure Operation: Tracheostomy and PEG tube placement and bronchoscopy Surgeon: Maria E Patel MD Internet Site Designer: DAYLIN Thompson EBL: minimal Specimens: none Operation in detail: The patient was positioned on the bed with the head and neck extended. The neck was prepped and draped in standard sterile fashion. A time-out was performed confirming the correct patient, site, and procedure. We began the operation by performing a bronchoscopy which was done down to the subsegmental level bilaterally. There were moderate secretions and no endobronchial lesions. Once this was complete, and any specimens were obtained, the endotracheal tube was brought back to the level of the vocal cords with the bronchoscope still in it. This was all done by the horticultural nursery assistant. The cuff was then deflated again with the bronchoscope in it and a needle was placed through the 2nd cartilaginous ring visualized on bronchoscopy and a wire was placed through the needle and left inside the trachea. A series of dilators was then used to dilate the space under vision. And over a wire and the 2 internal dilators the tracheostomy was inserted again under vision and the cuff was inflated. The bronchoscope was then placed through the tracheostomy visualizing the sowmya about 3 cm from the sowmya. Tracheostomy was then secured with nylon sutures and trach ties. We then placed the gastroscope into the oropharynx and into the esophagus traversing down into the stomach. Findings are no mucosal lesions in the esophagus, stomach, and 1st portion of the duodenum. The stomach was then insufflated and with the bedside horticultural nursery assistant at the abdomen transilluminated. The point of transillumination was then marked on the abdominal skin. This area was then prepped and draped in a standard sterile fashion and a needle was inserted at that point into the stomach visualized by the gastroscope. The wire was then grasped with a loop and pulled up into the oropharynx with the scope. The wire was then looped into the PEG tube and pulled from the abdominal side back down into the stomach following closely with the gastroscope. The PEG tube was then positioned up against the abdominal wall snug but not too tight. This was then secured in place and a dressing was applied and connected to a Camacho bag for drainage overnight. Patient tolerated the procedure well was brought back to the ICU in stable condition.
[2021-06-07 18:32] LABS: Glucose, Whole Blood 176 mg/dL (60-115)
[2021-06-07] MEDS: Insulin Lispro 100 UNIT/ML 3 ML VIAL SUBCUT (18:48)
[2021-06-07] MEDS: Heparin Sodium,Porcine 5,000 UNIT/ML VIAL 5000 UNIT SUBCUT (19:37)
[2021-06-07 20:05] LABS: Glucose, Whole Blood 149 mg/dL (60-115)
[2021-06-07] MEDS: DOPamine HCL/D5W 400 MG/250 ML PLAST..BAG 15.51 MG IVCONT (22:37)
[2021-06-08] VITALS (32 sets, daily range): BP systolic 124–189; BP diastolic 48–75; PULSE 44–82; RESP 14–29; TEMP 33.6–38.2; O2SAT 87–96; BMI 31.1
[2021-06-08 00:26] LABS: Glucose, Whole Blood 99 mg/dL (60-115)
[2021-06-08] MEDS: fentaNYL citrate/NS 1,000 MCG/100 ML PLAST..BAG 10 MCG IVCONT ×3 (01:56→22:20)
[2021-06-08] MEDS: propofoL 1,000 MG/100 ML VIAL 24.1 MG IVCONT ×2 (01:56→06:04)
[2021-06-08] MEDS: Dextrose 5 % 1,000 ML 50 ML IVCONT (03:57)
[2021-06-08] MEDS: Metoclopramide HCl 10 MG/2 ML VIAL 5 MG IVPUSH ×4 (03:58→23:24)
[2021-06-08] MEDS: Heparin Sodium,Porcine 5,000 UNIT/ML VIAL 5000 UNIT SUBCUT ×3 (03:58→20:01)
--- NOTE | 2021-06-08 04:41 | PC.NURSE ---
Addendum entered by Alex Mina RN 06/08/21 06:30: Pt was kept NPO per RAG SHREDDER for new PEG s/p surgery. Original Note: received patient in report. Pt trached and pegged today, pt is still on vent. Settings AC R-14, V-500, 40%, peep 5. LS are clear but adventitious on the left particularly in the lower lobe. Pt sats well throughout the night and tolerated repositioning well. NEurologically pt pupils are perrl and pt does open eyes but does not track. Pt does not respond to questions or commands. Pt has been in first degree hb through most of the night with a small period of time in [place] 2. Pt did have a small run of 5 beat v-tach that was unsustained. Pt is on dopamine at 4 for hr and it has been effective keeping pt hr in 40s and low 50s. Pt does have +3 pitting edema on the upper ext more on the left. Pt has +1 truncal edema. Cap refill <2sec. Pt has new surgical site on TERESA abd for PEG. The bandage has light shadowing but is dry and intact. BS are present. no BM. Pt has curry with good output 100-120ml/hr. PT is has generalized weakness. Pt has stage 2 on buttock bandaged with light shadowing dry and intact. Skin tear on coccyx. Pt was kept NPO through the night per RAG SHREDDER s/p surgery.
[2021-06-08 05:35] LABS: VBG Base Excess 5.9 mmol/L; VBG HCO3 30 mmol/L (22-26); VBG pCO2 45 mmHg; VBG pH 7.43 (7.32-7.43); VBG pO2 48 mmHg
[2021-06-08 05:36] LABS: Venous Blood Gas Refer to POC result
[2021-06-08 05:41] LABS: MANUAL DIFF FLAG NO
[2021-06-08 05:53] LABS: Basophils Percent Auto 0.1 % (0-2); Eosinophils Absolute Auto 0.1 X10*3/uL (0.0-0.4); Eosinophils Percent Auto 0.9 % (0-4); Hematocrit 27.7 % (42.0-52.0); Hemoglobin 8.4 g/dl (14.0-18.0); Imm Gran Abs Auto 0.16 X10*3/uL (0.00-0.03); Imm Gran Pct Auto 1.5 % (0.0-0.4); Lymphocytes Absolute Auto 1.2 X10*3/uL (1.2-4.9); Lymphocytes Percent Auto 11.8 % (20-40); Mean Corpuscular HGB Conc 30.3 g/dl (31.0-36.0); Mean Corpuscular Hemoglobin 29.3 pg (27.0-33.0); Mean Corpuscular Volume 96.5 fL (80.0-98.0); Mean Platelet Volume 11.4 fL (9.4-12.4); Monocytes Absolute Auto 0.8 X10*3/uL (0.1-1.2); Monocytes Percent Auto 7.7 % (2-11); NRBC Pct Auto 0.3 /100WBC (0.0-0.2); Neutrophils Absolute Auto 8.2 x10*3/uL (2.0-8.3); Platelet Count 131 X10*3/uL (160-400); Red Blood Count 2.87 X10*6/uL (4.60-5.80); White Blood Count 10.5 X10*3/uL (4.8-10.8)
[2021-06-08 05:59] LABS: Glucose, Whole Blood 94 mg/dL (60-115)
[2021-06-08 06:05] LABS: Alanine Aminotransferase 27 U/L (0-40); Albumin Level 3.1 g/dL (3.5-5.0); Alkaline Phosphatase 47 U/L (39-117); Anion Gap 11 (12-20); Aspartate Amino Transferase 18 U/L (5-37); Bilirubin Total 0.6 mg/dL (0.0-1.0); Blood Urea Nitrogen 67 mg/dL (9-16); Calcium 9.1 mg/dL (8.4-10.2); Carbon Dioxide 29 mmol/L (22-29); Chloride 113 mmol/L (96-108); Creatinine Clr Calc Pharmacy 128.1; Estimated Glomerular Filt Rate > 60; Glucose Random 94 mg/dL (60-115); Magnesium 1.9 mg/dL (1.6-2.6); Phosphorus 3.1 mg/dL (2.7-4.5); Potassium 4.1 mmol/L (3.3-5.1); Sodium 149 mmol/L (135-145); Total Protein 5.4 g/dL (6.5-8.0)
[2021-06-08] MEDS: 0.9 % Sodium Chloride Flush 3 ML SYRINGE IVFLUSH ×2 (08:09→16:38)
[2021-06-08] MEDS: Chlorhexidine Gluc Oral Rinse 15 ML MOUTHWASH BUCCAL ×3 (08:09→20:05)
[2021-06-08] MEDS: methylPREDNISolone Sod Succ 40 MG/ML VIAL IVPUSH (08:09)
--- NOTE | 2021-06-08 08:17 | MHC.CM.PN ---
pt remains in the icu, he is now c a trach on mech vent and PEG. dc plan is for patient to go to [facility] when medically stable and bed available at facility. refs. have been made. cm to cont. to follow.
[2021-06-08 08:27] LABS: Glucose, Whole Blood 99 mg/dL (60-115)
[2021-06-08] MEDS: Albumin Human 25 % 100 ML IV ×3 (08:41→20:03)
--- NOTE | 2021-06-08 08:52 | PM.CCN ---
Critical Care Event Note Summary Narrative: This case had a high probability of a clinically significant, sudden, or life threatening deterioration of this patient's condition which required my full and direct attention, intervention and personal management.
--- NOTE | 2021-06-08 08:54 | HO.POSTANES ---
Post Anesthesia Evaluation Post Anesthesia Evaluation Vital Signs: Vital Signs Temp Pulse Resp BP Pulse Ox 06/08/21 08:00 99.1 F 48 L 15 139/56 L 93 06/08/21 07:00 98.6 F 52 14 124/56 L 93 06/08/21 06:00 98.4 F 47 L 15 128/51 L 93 06/08/21 05:00 53 14 132/50 L 93 06/08/21 04:00 98.8 F 48 L 15 138/56 L 94 06/08/21 03:00 98.8 F 47 L 16 133/55 L 94 06/08/21 02:00 44 L 15 128/49 L 94 06/08/21 01:00 44 L 15 129/48 L 94 06/08/21 00:00 47 L 15 133/50 L 93 06/07/21 23:00 99.4 F 46 L 14 141/51 H 93 06/07/21 22:00 97.5 F 44 L 15 149/67 H 95 06/07/21 21:00 44 L 15 153/63 H 95 Anesthesia: General Endotracheal-GETA Mental Status: Sedated Pain Control: Satisfactory Nausea/Vomiting: None Hydration: Adequate Anesthesia-Related Issues: No Anes. Related Issues Comments: pt was on vent from ICU, he was moved back to ICU on vent.
[2021-06-08 12:12] LABS: Glucose, Whole Blood 146 mg/dL (60-115)
--- NOTE | 2021-06-08 12:15 | MHC.CLN ---
Addendum entered by Chiquis Garcias RD 06/08/21 14:06: CHANGED WATER FLUSH TO 240 ML EVERY 8 HOURS. FLUSH PLUS FORMULA PROVIDES 2358 ML FREE WATER (27.2 ML/KG CMW). FLUSH DECREASED DUE TO CKD AND CHF. Original Note: F/U PATIENT NOW WITH TRACH AND PEG TUBE. RD RECOMMEND PEG TUBE FEEDING OF GLUCERNA 1.0 AT MAX GOAL RATE OF 80 ML PER HOUR. FLUSH PER MD ORDER 240 ML EVERY 6 HOURS. PROVIDES: 1920 ML FORMULA, 1920 KCAL (22.1 KCAL/KG CMW); 80 G PROTEIN (.92 G/KG CMW); FREE WATER FROM FORMULA 1638 ML PLUS GDDWW=5557 ML (29.9 ML/KG CMW). CURRENT CINVZW=686.3 KG, BMI=31.2. CALCULATED METABOLIC WEIGHT=86.76 KG.
--- NOTE | 2021-06-08 13:33 | P.PNCC_ITS ---
Subjective Subjective Date of Service: 06/08/21 Interval History: 66-year-old gentleman with underlying history hypertension congestive heart failure, diabetes mellitus, COVID positive on 04/19/2021, admitted on 04/28/2021 with shortness of breath and hypoxemia. Patient treated with systemic glucocorticoids. hospital course significant for worsening hypoxemia requiring transfer to intensive care unit on 05/09/2021 and intubation on 05/13/2021, progressive acute kidney injury, and development of Mobitz type 2 block requiring placement of temporary pacer on 05/13/2021. Temporary pacer taken out on 05/17/2021.With slowly improving oxygenation, however recovery further complicated by ICU myopathy, status post tracheostomy and gastrostomy on 06/07/2021. No events overnight. Critical Care Time (minutes): 45 Physical Exam Vital Signs: Vital Signs: Last Vital Signs Temp 100.6 F H 06/08/21 12:00 Pulse 71 06/08/21 13:00 Resp 20 06/08/21 13:00 BP 163/68 H 06/08/21 13:00 Pulse Ox 94 06/08/21 13:00 Oxygen Flow Rate 15 04/28/21 21:37 BMI result Body Mass Index 31.1 Const: General: no acute distress and other (Sedated, arousable) Eyes: Sclerae: sclerae normal EOM: EOMs intact bilaterally Neck: Neck: Yes no lymphadenopathy, Yes trachea midline, Yes supple and Yes other (Tracheostomy on the vent) Resp: Auscultation: clear to auscultation bilaterally Cardio: Rate: regular rate Rhythm: regular rhythm Heart sounds: no gallops, no murmurs and no rubs GI: Palpation (GI): Soft to palpation and Other GI palpation findings present ( Nontender) Auscultation: normal bowel sounds Extrem: General: No clubbing, No cyanosis and Yes pedal edema (1+ bilateral) Objective Data Labs CBC & Chem 7: 06/08/21 05:25 06/08/21 05:25 Labs: Laboratory Results - last 24 hr 06/07/21 06/07/21 06/07/21 13:56 18:02 19:56 WBC RBC Hgb Hct MCV MCH MCHC RDW Plt Count MPV Immature Gran % (Auto) Neut % (Auto) Lymph % (Auto) [place] % (Auto) Eos % (Auto) Baso % (Auto) Lymph # (Auto) [place] # (Auto) Eos # (Auto) Baso # (Auto) Abs Immat Gran (auto) Absolute Neuts (auto) Absolute Nucleated RBC Nucleated RBC % (auto) VBG pH VBG pCO2 VBG pO2 VBG HCO3 VBG O2 Saturation VBG Base Excess Sodium Potassium Chloride Carbon Dioxide Anion Gap BUN Creatinine Estim Creat Clear Calc Estimated GFR POC Glucose 142 H 176 H 149 H Random Glucose Calcium Phosphorus Magnesium Total Bilirubin AST ALT Alkaline Phosphatase Total Protein Albumin 06/08/21 06/08/21 06/08/21 00:16 05:25 05:25 WBC 10.5 RBC 2.87 L Hgb 8.4 L Hct 27.7 L MCV 96.5 MCH 29.3 MCHC 30.3 L RDW 19.0 H Plt Count 131 L MPV 11.4 Immature Gran % (Auto) 1.5 H Neut % (Auto) 78.0 H Lymph % (Auto) 11.8 L [place] % (Auto) 7.7 Eos % (Auto) 0.9 Baso % (Auto) 0.1 Lymph # (Auto) 1.2 [place] # (Auto) 0.8 Eos # (Auto) 0.1 Baso # (Auto) 0.0 Abs Immat Gran (auto) 0.16 H Absolute Neuts (auto) 8.2 Absolute Nucleated RBC 0.030 H Nucleated RBC % (auto) 0.3 H VBG pH VBG pCO2 VBG pO2 VBG HCO3 VBG O2 Saturation VBG Base Excess Sodium 149 H Potassium 4.1 Chloride 113 H Carbon Dioxide 29 Anion Gap 11 L BUN 67 H Creatinine 0.71 Estim Creat Clear Calc 128.1 Estimated GFR > 60 POC Glucose 99 Random Glucose 94 Calcium 9.1 Phosphorus 3.1 Magnesium 1.9 Total Bilirubin 0.6 AST 18 ALT 27 Alkaline Phosphatase 47 Total Protein 5.4 L Albumin 3.1 L 06/08/21 06/08/21 06/08/21 05:29 05:55 08:21 WBC RBC Hgb Hct MCV MCH MCHC RDW Plt Count MPV Immature Gran % (Auto) Neut % (Auto) Lymph % (Auto) [place] % (Auto) Eos % (Auto) Baso % (Auto) Lymph # (Auto) [place] # (Auto) Eos # (Auto) Baso # (Auto) Abs Immat Gran (auto) Absolute Neuts (auto) Absolute Nucleated RBC Nucleated RBC % (auto) VBG pH 7.43 VBG pCO2 45 VBG pO2 48 VBG HCO3 30 H VBG O2 Saturation 77.0 VBG Base Excess 5.9 Sodium Potassium Chloride Carbon Dioxide Anion Gap BUN Creatinine Estim Creat Clear Calc Estimated GFR POC Glucose 94 99 Random Glucose Calcium Phosphorus Magnesium Total Bilirubin AST ALT Alkaline Phosphatase Total Protein Albumin 06/08/21 12:03 WBC RBC Hgb Hct MCV MCH MCHC RDW Plt Count MPV Immature Gran % (Auto) Neut % (Auto) Lymph % (Auto) [place] % (Auto) Eos % (Auto) Baso % (Auto) Lymph # (Auto) [place] # (Auto) Eos # (Auto) Baso # (Auto) Abs Immat Gran (auto) Absolute Neuts (auto) Absolute Nucleated RBC Nucleated RBC % (auto) VBG pH VBG pCO2 VBG pO2 VBG HCO3 VBG O2 Saturation VBG Base Excess Sodium Potassium Chloride Carbon Dioxide Anion Gap BUN Creatinine Estim Creat Clear Calc Estimated GFR POC Glucose 146 H Random Glucose Calcium Phosphorus Magnesium Total Bilirubin AST ALT Alkaline Phosphatase Total Protein Albumin Microbiology Microbiology Results: Microbiology 05/30/21 16:15 Blood - Venous Blood Culture - Final No growth after 5 days. 05/30/21 16:15 Blood - Venous Blood Culture - Final No growth after 5 days. 05/31/21 00:50 Urine Catheterized - Camacho Catheter Urine Culture - Final No growth. 05/26/21 06:44 Blood - Venous Blood Culture - Final No growth after 5 days. 05/26/21 06:44 Blood - Venous Blood Culture - Final No growth after 5 days. 05/28/21 11:25 Sputum - Suctioned Gram Stain - Final 05/28/21 11:25 Sputum - Suctioned Sputum Culture - Final 05/22/21 11:32 Urine Catheterized - Camacho Catheter Urine Culture - Final Serratia marcescens 05/19/21 16:47 Blood - Venous Blood Culture - Final No growth after 5 days. 05/19/21 16:49 Blood - Venous Blood Culture - Final No growth after 5 days. 05/22/21 15:44 Sputum - Suctioned Gram Stain - Final 05/22/21 15:44 Sputum - Suctioned Sputum Culture - Final 05/15/21 08:25 Blood - Venous Blood Culture - Final No growth after 5 days. 05/15/21 08:25 Blood - Venous Blood Culture - Final No growth after 5 days. 05/17/21 15:20 Sputum - Suctioned Gram Stain - Final 05/17/21 15:20 Sputum - Suctioned Sputum Culture - Final 05/13/21 Unknown Urine Catheterized - Camacho Catheter Urine Culture - Final Serratia marcescens 04/28/21 22:17 Blood - Venous Blood Culture - Final No growth after 5 days. 04/28/21 22:17 Blood - Venous Blood Culture - Final No growth after 5 days. Progress Note: A&P Assessment and plan (1) Failure to wean from mechanical ventilation: Status: Acute (2) Atrial flutter: Status: Acute (3) Aortic stenosis due to bicuspid aortic valve: Status: Acute (4) Myopathy: Status: Acute (5) Diabetes: Status: Acute (6) CHF (congestive heart failure): Status: Acute (7) COVID-19 determined by clinical diagnostic criteria: Status: Acute (8) Acute hypoxemic respiratory failure due to COVID-19: Status: Acute Assessment and Plan: Assessment: 66-year-old gentleman with underlying history of hypertension, CHF, diabetes mellitus admitted with acute hypoxic respiratory failure secondary to COVID-19 ARDS, requiring ventilatory support and further complicated by slow recovery, ventilator dependence, and ICU myopathy Plan: Neuro: ICU myopathy, continue aggressive physical therapy. Cardiac: Mobitz type 2 status post temporary pacemaker, removed 01/27/2021. Un derlying paroxysmal Aflutter/AFib, may require ppm placement. Underlying congestive heart failure. Continue with judicious diuresis. Eliquis held secondary to minor GI bleed, now on aspirin. Pulmonary: Acute hypoxic respiratory failure secondary to COVID-19 ARDS now with failure to wean from ventilatory support. FiO2 requirements improved significantly. Now status post tracheostomy on 06/07/2021. Continue to titrate off as tolerated. Renal: Acute renal failure on the background of chronic kidney disease, likely secondary to COVID-19 , resolved. Renal function improved. Nephrology service care appreciated. Continue to monitor electrolytes, renal indices, and urine output. Endo: No acute issues. GI: No acute issues. Status post PEG on 10/06/2020. ID: COVID-19, on systemic glucocorticoids. Heme/Onc: No acute issues. Psych: No acute issues. Miscellaneous: No acute issues. Prophylaxis: heparin , omeprazole Diet: Tube feeds Critical care time spent: 45 minutes Quality Stroke Does the patient have a stroke diagnosis?: No VTE Prior VTE?: No VTE Risk Level:: Medical - moderate - high VTE Device Contraindication: Treatment Not Indicated VTE Drug Contraindication: N/A - Med Ordered
[2021-06-08] MEDS: DOPamine HCL/D5W 400 MG/250 ML PLAST..BAG 15.51 MG IVCONT (14:37)
[2021-06-08] MEDS: Insulin Lispro 100 UNIT/ML 3 ML VIAL SUBCUT (18:31)
--- NOTE | 2021-06-08 18:37 | PC.NURSE ---
tmax 100.8 vss, dopamine titrated off for elevated BP. SR with first degree/2nd degree type 2 . Propofol turned off per EMAR, fentanyl running for comfort. Pt opens eyes, tracks, able to follow commands and nods yes/no to questions appropriately. LS dim, trialed pressure support, by became hypoxic, returned to previous settings on vent. Tube feeds started per order this evening. U/O wnl, repo q2hr, prevalon mattress used. Dsg on buttocks changed.
[2021-06-08 18:38] LABS: Glucose, Whole Blood 170 mg/dL (60-115)
[2021-06-08] MEDS: Atorvastatin Calcium 80 MG TABLET PO (20:06)
[2021-06-08 22:36] LABS: Glucose, Whole Blood 113 mg/dL (60-115)
[2021-06-08] MEDS: Insulin Glargine,Hum.rec.anlog 100 UNIT/ML 10 ML VIAL 22 UNIT SUBCUT (23:24)
[2021-06-09] VITALS (30 sets, daily range): BP systolic 140–183; BP diastolic 51–106; PULSE 23–115; RESP 16–82; TEMP 34.9–38; O2SAT 4–96; BMI 29.9
[2021-06-09] MEDS: 0.9 % Sodium Chloride Flush 3 ML SYRINGE IVFLUSH ×3 (01:27→16:14)
[2021-06-09] MEDS: Albumin Human 25 % 100 ML IV (01:47)
[2021-06-09] MEDS: Metoclopramide HCl 10 MG/2 ML VIAL 5 MG IVPUSH ×4 (04:01→21:49)
[2021-06-09] MEDS: Heparin Sodium,Porcine 5,000 UNIT/ML VIAL 5000 UNIT SUBCUT ×3 (04:02→19:38)
[2021-06-09 05:29] LABS: VBG Base Excess 6.5 mmol/L; VBG HCO3 30 mmol/L (22-26); VBG pCO2 41 mmHg; VBG pH 7.47 (7.32-7.43); VBG pO2 43 mmHg
[2021-06-09 05:32] LABS: Venous Blood Gas Refer to POC result
[2021-06-09 05:35] LABS: MANUAL DIFF FLAG NO
[2021-06-09 05:51] LABS: Eosinophils Absolute Auto 0.1 X10*3/uL (0.0-0.4); Eosinophils Percent Auto 0.5 % (0-4); Hematocrit 24.2 % (42.0-52.0); Hemoglobin 7.2 g/dl (14.0-18.0); Lymphocytes Percent Auto 10.4 % (20-40); Mean Corpuscular HGB Conc 29.8 g/dl (31.0-36.0); Mean Corpuscular Hemoglobin 28.8 pg (27.0-33.0); Mean Corpuscular Volume 96.8 fL (80.0-98.0); Mean Platelet Volume 11.9 fL (9.4-12.4); Monocytes Absolute Auto 0.9 X10*3/uL (0.1-1.2); Monocytes Percent Auto 9.5 % (2-11); NRBC Pct Auto 0.2 /100WBC (0.0-0.2); Neutrophils Absolute Auto 7.7 x10*3/uL (2.0-8.3); Neutrophils Percent Auto 78.6 % (45-73); Platelet Count 108 X10*3/uL (160-400); Red Cell Distribution Width 19.2 % (11.0-16.0); White Blood Count 9.8 X10*3/uL (4.8-10.8)
[2021-06-09 05:54] LABS: Glucose, Whole Blood 148 mg/dL (60-115)
[2021-06-09 06:09] LABS: Albumin Level 3.9 g/dL (3.5-5.0); Anion Gap 11 (12-20); Blood Urea Nitrogen 51 mg/dL (9-16); Calcium 9.1 mg/dL (8.4-10.2); Carbon Dioxide 31 mmol/L (22-29); Chloride 113 mmol/L (96-108); Creatinine Clr Calc Pharmacy 125.3; Estimated Glomerular Filt Rate > 60; Glucose Random 144 mg/dL (60-115); Magnesium 1.8 mg/dL (1.6-2.6); Phosphorus 2.6 mg/dL (2.7-4.5); Potassium 4.1 mmol/L (3.3-5.1); Sodium 151 mmol/L (135-145)
[2021-06-09] MEDS: Aspirin 81 MG TAB.CHEW 324 MG NG-TUBE (07:40)
[2021-06-09] MEDS: Chlorhexidine Gluc Oral Rinse 15 ML MOUTHWASH BUCCAL ×3 (07:40→21:49)
[2021-06-09] MEDS: methylPREDNISolone Sod Succ 40 MG/ML VIAL IVPUSH (07:40)
[2021-06-09] MEDS: Sodium,Potassium Phosphates POWD.PACK 2 PACKET OG-TUBE (07:40)
[2021-06-09] MEDS: fentaNYL citrate/NS 1,000 MCG/100 ML PLAST..BAG 10 MCG IVCONT ×2 (08:40→16:15)
--- NOTE | 2021-06-09 09:43 | MHC.CLN ---
F/U PATIENT WITH TRACH AND PEG TUBE. TUBE FEEDING CURRENTLY AT 50 ML/HOUR AND TOLERATING WELL. FLUSH CHANGED TO 300 ML EVERY 4 HOURS DUE TO ELEVATED SODIUM. CONTINUE TUBE FEEDING OF GLUCERNA 1.0 AT MAX GOAL RATE OF 80 ML PER HOUR. FLUSH PER MD ORDER 300 ML EVERY 4 HOURS. PROVIDES: 1920 ML FORMULA, 1920 KCAL (22.1 KCAL/KG CMW); 80 G PROTEIN (.92 G/KG CMW); FREE WATER FROM FORMULA 1638 ML PLUS [id number]=8629 ML (39.6 ML/KG CMW). MONITOR TOLERANCE, RESIDUALS, AND LYTES.
--- NOTE | 2021-06-09 10:16 | PM.CCPN ---
Subjective Subjective Date of Service: 06/09/21 Interval History: 66-year-old gentleman with underlying history hypertension congestive heart failure, diabetes mellitus, COVID positive on 04/19/2021, admitted on 04/28/2021 with shortness of breath and hypoxemia. Patient treated with systemic glucocorticoids. hospital course significant for worsening hypoxemia requiring transfer to intensive care unit on 05/09/2021 and intubation on 05/13/2021, progressive acute kidney injury, and development of Mobitz type 2 block requiring placement of temporary pacer on 05/13/2021. Temporary pacer taken out on 05/17/2021.With slowly improving oxygenation, however recovery further complicated by ICU myopathy, status post tracheostomy and gastrostomy on 06/07/2021. No events overnight. Critical Care Time (minutes): 30 Physical Exam Vital Signs: Vital Signs: Last Vital Signs Temp 100.4 F 06/09/21 10:00 Pulse 70 06/09/21 10:00 Resp 18 06/09/21 10:00 BP 183/69 H 06/09/21 09:00 Pulse Ox 93 06/09/21 10:00 Oxygen Flow Rate 15 06/08/21 14:55 BMI result Body Mass Index 29.9 Const: General: no acute distress and other ( somnolent, arousable) Eyes: Sclerae: sclerae normal EOM: EOMs intact bilaterally Neck: Neck: Yes no lymphadenopathy, Yes trachea midline, Yes supple and Yes other ( tracheostomy on vent) Resp: Effort & Inspection: normal respiratory effort and no respiratory distress Auscultation: clear to auscultation bilaterally Cardio: Rate: regular rate Rhythm: regular rhythm Heart sounds: no gallops, no murmurs and no rubs GI: Palpation (GI): Soft to palpation and Other GI palpation findings present ( Nontender) Auscultation: normal bowel sounds Extrem: General: No clubbing, No cyanosis and Yes pedal edema ( trace bilateral) Objective Data Labs CBC & Chem 7: 06/09/21 05:21 06/09/21 05:21 Labs: Laboratory Results - last 24 hr 06/08/21 06/08/21 06/08/21 12:03 18:23 22:21 WBC RBC Hgb Hct MCV MCH MCHC RDW Plt Count MPV Immature Gran % (Auto) Neut % (Auto) Lymph % (Auto) [place] % (Auto) Eos % (Auto) Baso % (Auto) Lymph # (Auto) [place] # (Auto) Eos # (Auto) Baso # (Auto) Abs Immat Gran (auto) Absolute Neuts (auto) Absolute Nucleated RBC Nucleated RBC % (auto) VBG pH VBG pCO2 VBG pO2 VBG HCO3 VBG O2 Saturation VBG Base Excess Sodium Potassium Chloride Carbon Dioxide Anion Gap BUN Creatinine Estim Creat Clear Calc Estimated GFR POC Glucose 146 H 170 H 113 Random Glucose Calcium Phosphorus Magnesium Albumin 06/09/21 06/09/21 06/09/21 05:21 05:21 05:23 WBC 9.8 RBC 2.50 L Hgb 7.2 L Hct 24.2 L MCV 96.8 MCH 28.8 MCHC 29.8 L RDW 19.2 H Plt Count 108 L MPV 11.9 Immature Gran % (Auto) 1.0 H Neut % (Auto) 78.6 H Lymph % (Auto) 10.4 L [place] % (Auto) 9.5 Eos % (Auto) 0.5 Baso % (Auto) 0.0 Lymph # (Auto) 1.0 L [place] # (Auto) 0.9 Eos # (Auto) 0.1 Baso # (Auto) 0.0 Abs Immat Gran (auto) 0.10 H Absolute Neuts (auto) 7.7 Absolute Nucleated RBC 0.020 H Nucleated RBC % (auto) 0.2 VBG pH 7.47 H VBG pCO2 41 VBG pO2 43 VBG HCO3 30 H VBG O2 Saturation 72.0 VBG Base Excess 6.5 Sodium 151 H Potassium 4.1 Chloride 113 H Carbon Dioxide 31 H Anion Gap 11 L BUN 51 H Creatinine 0.71 Estim Creat Clear Calc 125.3 Estimated GFR > 60 POC Glucose Random Glucose 144 H D Calcium 9.1 Phosphorus 2.6 L Magnesium 1.8 Albumin 3.9 D 06/09/21 05:45 WBC RBC Hgb Hct MCV MCH MCHC RDW Plt Count MPV Immature Gran % (Auto) Neut % (Auto) Lymph % (Auto) [place] % (Auto) Eos % (Auto) Baso % (Auto) Lymph # (Auto) [place] # (Auto) Eos # (Auto) Baso # (Auto) Abs Immat Gran (auto) Absolute Neuts (auto) Absolute Nucleated RBC Nucleated RBC % (auto) VBG pH VBG pCO2 VBG pO2 VBG HCO3 VBG O2 Saturation VBG Base Excess Sodium Potassium Chloride Carbon Dioxide Anion Gap BUN Creatinine Estim Creat Clear Calc Estimated GFR POC Glucose 148 H Random Glucose Calcium Phosphorus Magnesium Albumin Microbiology Microbiology Results: Microbiology 05/30/21 16:15 Blood - Venous Blood Culture - Final No growth after 5 days. 05/30/21 16:15 Blood - Venous Blood Culture - Final No growth after 5 days. 05/31/21 00:50 Urine Catheterized - Camacho Catheter Urine Culture - Final No growth. 05/26/21 06:44 Blood - Venous Blood Culture - Final No growth after 5 days. 05/26/21 06:44 Blood - Venous Blood Culture - Final No growth after 5 days. 05/28/21 11:25 Sputum - Suctioned Gram Stain - Final 05/28/21 11:25 Sputum - Suctioned Sputum Culture - Final 05/22/21 11:32 Urine Catheterized - Camacho Catheter Urine Culture - Final Serratia marcescens 05/19/21 16:47 Blood - Venous Blood Culture - Final No growth after 5 days. 05/19/21 16:49 Blood - Venous Blood Culture - Final No growth after 5 days. 05/22/21 15:44 Sputum - Suctioned Gram Stain - Final 05/22/21 15:44 Sputum - Suctioned Sputum Culture - Final 05/15/21 08:25 Blood - Venous Blood Culture - Final No growth after 5 days. 05/15/21 08:25 Blood - Venous Blood Culture - Final No growth after 5 days. 05/17/21 15:20 Sputum - Suctioned Gram Stain - Final 05/17/21 15:20 Sputum - Suctioned Sputum Culture - Final 05/13/21 Unknown Urine Catheterized - Camacho Catheter Urine Culture - Final Serratia marcescens 04/28/21 22:17 Blood - Venous Blood Culture - Final No growth after 5 days. 04/28/21 22:17 Blood - Venous Blood Culture - Final No growth after 5 days. Progress Note: A&P Assessment and plan (1) Atrial flutter: Status: Acute (2) Myopathy: Status: Acute (3) Aortic stenosis due to bicuspid aortic valve: Status: Acute (4) Diabetes: Status: Acute (5) CHF (congestive heart failure): Status: Acute (6) Type 2 diabetes mellitus: Status: Acute (7) SARS-CoV-2 positive: Status: Acute (8) Acute hypoxemic respiratory failure due to COVID-19: Status: Acute Assessment and Plan: Assessment: 66-year-old gentleman with underlying history of hypertension, CHF, diabetes mellitus admitted with acute hypoxic respiratory failure secondary to COVID-19 ARDS, requiring ventilatory support and further complicated by slow recovery, ventilator dependence, and ICU myopathy Plan: Neuro: ICU myopathy, continue aggressive physical therapy. Cardiac: Mobitz type 2 status post temporary pacemaker, removed 01/27/2021. Underlying paroxysmal Aflutter/AFib, may require ppm placement. Underlying congestive heart failure. Continue with judicious diuresis. Eliquis held secondary to minor GI bleed, now on aspirin. Pulmonary: Acute hypoxic respiratory failure secondary to COVID-19 ARDS now with failure to wean from ventilatory support. FiO2 requirements improved significantly. Now status post tracheostomy on 06/07/2021. Continue to titrate off as tolerated. Renal: Acute renal failure on the background of chronic kidney disease, likely secondary to COVID-19 , resolved. Renal function improved. Nephrology service care appreciated. Continue to monitor electrolytes, renal indices, and urine output. Endo: No acute issues. GI: No acute issues. Status post PEG on 10/06/2020. ID: COVID-19, on systemic glucocorticoids. Heme/Onc: No acute issues. Psych: No acute issues. Miscellaneous: No acute issues. Prophylaxis: heparin , omeprazole Diet: Tube feeds Critical care time spent: 30 minutes Quality Stroke Does the patient have a stroke diagnosis?: No VTE Prior VTE?: No VTE Risk Level:: Medical - moderate - high VTE Device Contraindication: Treatment Not Indicated VTE Drug Contraindication: N/A - Med Ordered
[2021-06-09 11:05] LABS: Glucose, Whole Blood 196 mg/dL (60-115)
[2021-06-09] MEDS: Insulin Lispro 100 UNIT/ML 3 ML VIAL SUBCUT ×2 (11:11→17:25)
[2021-06-09 17:18] LABS: Glucose, Whole Blood 213 mg/dL (60-115)
--- NOTE | 2021-06-09 18:10 | PC.NURSE ---
tmax 100.4, VSS. Pt openeing eyes to voice, able to nod yes/no to questions, following commands. pt attempts to mouth words. oriented pt to trach/peg, explained what the plan was LS clear. Pt trialed on pressure support for about 5 hours and tollerated well. Pt placed back on previous settings. u/o wnl, bath given, tube feed to max rate. family called and updated, facetime se up with .
--- NOTE | 2021-06-09 18:36 | PM.PNNEP ---
Subjective Subjective Date of Service: 06/13/21 Principal diagnosis: COVID, JÚNIOR, CKD Interval history: 66-year-old gentleman with underlying history hypertension congestive heart failure, diabetes mellitus, COVID positive on 04/19/2021, admitted on 04/28/2021 with shortness of breath and hypoxemia. Patient treated with systemic glucocorticoids. hospital course significant for worsening hypoxemia requiring transfer to intensive care unit on 05/09/2021 and intubation on 05/13/2021, progressive acute kidney injury, and development of Mobitz type 2 block requiring placement of temporary pacer on 05/13/2021. Temporary pacer taken out on 05/17/2021.With slowly improving oxygenation, however recovery further complicated by ICU myopathy, status post tracheostomy and gastrostomy on 06/07/2021. No events overnight. Physical Exam Vital Signs: Vital Signs: Last Vital Signs Temp 97.2 F 06/09/21 18:00 Pulse 82 06/09/21 18:00 Resp 82 H 06/09/21 18:00 BP 168/82 H 06/09/21 18:00 Pulse Ox 94 06/09/21 18:00 Oxygen Flow Rate 15 06/08/21 14:55 BMI result Body Mass Index 29.9 Neck: Neck: Yes supple Chest: Chest palpation & inspection: No rash Cardio: Palpation: no palpable S3 Neuro: Motor exam (neuro): No Asterixis during motor activity present Objective Data Labs CBC & Chem 7: 06/13/21 05:30 06/13/21 05:30 Labs: Laboratory Results - last 24 hr 06/08/21 06/08/21 06/09/21 18:23 22:21 05:21 WBC 9.8 RBC 2.50 L Hgb 7.2 L Hct 24.2 L MCV 96.8 MCH 28.8 MCHC 29.8 L RDW 19.2 H Plt Count 108 L MPV 11.9 Immature Gran % (Auto) 1.0 H Neut % (Auto) 78.6 H Lymph % (Auto) 10.4 L [place] % (Auto) 9.5 Eos % (Auto) 0.5 Baso % (Auto) 0.0 Lymph # (Auto) 1.0 L [place] # (Auto) 0.9 Eos # (Auto) 0.1 Baso # (Auto) 0.0 Abs Immat Gran (auto) 0.10 H Absolute Neuts (auto) 7.7 Absolute Nucleated RBC 0.020 H Nucleated RBC % (auto) 0.2 VBG pH VBG pCO2 VBG pO2 VBG HCO3 VBG O2 Saturation VBG Base Excess Sodium Potassium Chloride Carbon Dioxide Anion Gap BUN Creatinine Estim Creat Clear Calc Estimated GFR POC Glucose 170 H 113 Random Glucose Calcium Phosphorus Magnesium Albumin 06/09/21 06/09/21 06/09/21 05:21 05:23 05:45 WBC RBC Hgb Hct MCV MCH MCHC RDW Plt Count MPV Immature Gran % (Auto) Neut % (Auto) Lymph % (Auto) [place] % (Auto) Eos % (Auto) Baso % (Auto) Lymph # (Auto) [place] # (Auto) Eos # (Auto) Baso # (Auto) Abs Immat Gran (auto) Absolute Neuts (auto) Absolute Nucleated RBC Nucleated RBC % (auto) VBG pH 7.47 H VBG pCO2 41 VBG pO2 43 VBG HCO3 30 H VBG O2 Saturation 72.0 VBG Base Excess 6.5 Sodium 151 H Potassium 4.1 Chloride 113 H Carbon Dioxide 31 H Anion Gap 11 L BUN 51 H Creatinine 0.71 Estim Creat Clear Calc 125.3 Estimated GFR > 60 POC Glucose 148 H Random Glucose 144 H D Calcium 9.1 Phosphorus 2.6 L Magnesium 1.8 Albumin 3.9 D 06/09/21 06/09/21 11:01 17:13 WBC RBC Hgb Hct MCV MCH MCHC RDW Plt Count MPV Immature Gran % (Auto) Neut % (Auto) Lymph % (Auto) [place] % (Auto) Eos % (Auto) Baso % (Auto) Lymph # (Auto) [place] # (Auto) Eos # (Auto) Baso # (Auto) Abs Immat Gran (auto) Absolute Neuts (auto) Absolute Nucleated RBC Nucleated RBC % (auto) VBG pH VBG pCO2 VBG pO2 VBG HCO3 VBG O2 Saturation VBG Base Excess Sodium Potassium Chloride Carbon Dioxide Anion Gap BUN Creatinine Estim Creat Clear Calc Estimated GFR POC Glucose 196 H 213 H Random Glucose Calcium Phosphorus Magnesium Albumin Microbiology Microbiology Results: Microbiology 05/30/21 16:15 Blood - Venous Blood Culture - Final No growth after 5 days. 05/30/21 16:15 Blood - Venous Blood Culture - Final No growth after 5 days. 05/31/21 00:50 Urine Catheterized - Camacho Catheter Urine Culture - Final No growth. 05/26/21 06:44 Blood - Venous Blood Culture - Final No growth after 5 days. 05/26/21 06:44 Blood - Venous Blood Culture - Final No growth after 5 days. 05/28/21 11:25 Sputum - Suctioned Gram Stain - Final 05/28/21 11:25 Sputum - Suctioned Sputum Culture - Final 05/22/21 11:32 Urine Catheterized - Camacho Catheter Urine Culture - Final Serratia marcescens 05/19/21 16:47 Blood - Venous Blood Culture - Final No growth after 5 days. 05/19/21 16:49 Blood - Venous Blood Culture - Final No growth after 5 days. 05/22/21 15:44 Sputum - Suctioned Gram Stain - Final 05/22/21 15:44 Sputum - Suctioned Sputum Culture - Final 05/15/21 08:25 Blood - Venous Blood Culture - Final No growth after 5 days. 05/15/21 08:25 Blood - Venous Blood Culture - Final No growth after 5 days. 05/17/21 15:20 Sputum - Suctioned Gram Stain - Final 05/17/21 15:20 Sputum - Suctioned Sputum Culture - Final 05/13/21 Unknown Urine Catheterized - Camacho Catheter Urine Culture - Final Serratia marcescens 04/28/21 22:17 Blood - Venous Blood Culture - Final No growth after 5 days. 04/28/21 22:17 Blood - Venous Blood Culture - Final No growth after 5 days. Procedures Date of Service Date of Service: 06/09/21 Assessment & Plan Assessment and plan (1) JÚNIOR (acute kidney injury): Status: Inactive Assessment and Plan: (1) CKD (chronic kidney disease) stage 3, GFR 30-59 ml/min: ?Status:?Acute (2) SARS-CoV-2 positive: ?Status:?Acute ?Assessment and Plan: JÚNIOR due to compromised kidney perfusion in the setting of SARS COV 2 known CKD 3 due to DM/HTN followed by Dr Feldman Hypernatremia - due to free water deficit - REC no indication for dialysis Keep I >>O with free water sodium zirconium as needed to correct hyperkalemia Concur with current medical management follow kidney function and electrolytes Time Spent With Patient Time: Total time spent is greater than 50% in coordination of care (as documented) at patient's floor/unit and/or counseling patient: Time with patient: 15 - 24 minutes Progress Note: Quality Stroke Does the patient have a stroke diagnosis?: No
[2021-06-09] MEDS: traZODone HCL 100 MG TABLET PO (21:49)
[2021-06-09] MEDS: Insulin Glargine,Hum.rec.anlog 100 UNIT/ML 10 ML VIAL 22 UNIT SUBCUT (21:49)
[2021-06-09] MEDS: Atorvastatin Calcium 80 MG TABLET PO (21:49)
[2021-06-10] VITALS (29 sets, daily range): BP systolic 91–175; BP diastolic 42–98; PULSE 54–93; RESP 15–31; TEMP 34.8–38; O2SAT 91–96
[2021-06-10 00:38] LABS: Glucose, Whole Blood 144 mg/dL (60-115)
[2021-06-10] MEDS: 0.9 % Sodium Chloride Flush 3 ML SYRINGE IVFLUSH (00:39)
[2021-06-10] MEDS: Heparin Sodium,Porcine 5,000 UNIT/ML VIAL 5000 UNIT SUBCUT ×3 (03:43→20:29)
[2021-06-10] MEDS: fentaNYL citrate/NS 1,000 MCG/100 ML PLAST..BAG 10 MCG IVCONT ×3 (03:43→20:28)
[2021-06-10] MEDS: Metoclopramide HCl 10 MG/2 ML VIAL 5 MG IVPUSH ×4 (03:44→21:56)
[2021-06-10 05:24] LABS: Glucose, Whole Blood 149 mg/dL (60-115)
[2021-06-10 05:37] LABS: VBG HCO3 30 mmol/L (22-26); VBG pCO2 38 mmHg; VBG pO2 47 mmHg
[2021-06-10 05:39] LABS: Venous Blood Gas Refer to POC result
[2021-06-10 06:00] LABS: MANUAL DIFF FLAG NO
[2021-06-10 06:04] LABS: Basophils Percent Auto 0.1 % (0-2); Eosinophils Absolute Auto 0.1 X10*3/uL (0.0-0.4); Hematocrit 25.4 % (42.0-52.0); Hemoglobin 7.4 g/dl (14.0-18.0); Imm Gran Abs Auto 0.09 X10*3/uL (0.00-0.03); Imm Gran Pct Auto 0.9 % (0.0-0.4); Lymphocytes Absolute Auto 1.1 X10*3/uL (1.2-4.9); Lymphocytes Percent Auto 11.3 % (20-40); Mean Corpuscular HGB Conc 29.1 g/dl (31.0-36.0); Mean Corpuscular Hemoglobin 28.4 pg (27.0-33.0); Mean Corpuscular Volume 97.3 fL (80.0-98.0); Mean Platelet Volume 12.3 fL (9.4-12.4); Monocytes Absolute Auto 0.8 X10*3/uL (0.1-1.2); Monocytes Percent Auto 8.4 % (2-11); Neutrophils Absolute Auto 7.5 x10*3/uL (2.0-8.3); Neutrophils Percent Auto 78.3 % (45-73); Platelet Count 115 X10*3/uL (160-400); Red Blood Count 2.61 X10*6/uL (4.60-5.80); Red Cell Distribution Width 18.7 % (11.0-16.0); White Blood Count 9.6 X10*3/uL (4.8-10.8)
[2021-06-10 06:23] LABS: Albumin Level 3.4 g/dL (3.5-5.0); Anion Gap 10 (12-20); Blood Urea Nitrogen 47 mg/dL (9-16); Calcium 8.8 mg/dL (8.4-10.2); Carbon Dioxide 31 mmol/L (22-29); Chloride 112 mmol/L (96-108); Creatinine Clr Calc Pharmacy 127.3; Estimated Glomerular Filt Rate > 60; Glucose Random 188 mg/dL (60-115); Magnesium 1.8 mg/dL (1.6-2.6); Phosphorus 2.5 mg/dL (2.7-4.5); Sodium 149 mmol/L (135-145)
[2021-06-10] MEDS: Aspirin 81 MG TAB.CHEW 324 MG NG-TUBE (08:14)
[2021-06-10] MEDS: Chlorhexidine Gluc Oral Rinse 15 ML MOUTHWASH BUCCAL ×3 (08:14→20:29)
[2021-06-10] MEDS: Insulin Glargine,Hum.rec.anlog 100 UNIT/ML 10 ML VIAL 22 UNIT SUBCUT ×2 (08:15→20:29)
[2021-06-10] MEDS: methylPREDNISolone Sod Succ 40 MG/ML VIAL IVPUSH (08:17)
[2021-06-10] MEDS: Sodium,Potassium Phosphates POWD.PACK 2 PACKET OG-TUBE (08:17)
[2021-06-10 11:32] LABS: Glucose, Whole Blood 219 mg/dL (60-115)
--- NOTE | 2021-06-10 12:04 | PM.CCPN ---
Subjective Subjective Date of Service: 06/10/21 Interval History: 66-year-old gentleman with underlying history hypertension congestive heart failure, diabetes mellitus, COVID positive on 04/19/2021, admitted on 04/28/2021 with shortness of breath and hypoxemia. Patient treated with systemic glucocorticoids. hospital course significant for worsening hypoxemia requiring transfer to intensive care unit on 05/09/2021 and intubation on 05/13/2021, progressive acute kidney injury, and development of Mobitz type 2 block requiring placement of temporary pacer on 05/13/2021. Temporary pacer taken out on 05/17/2021.With slowly improving oxygenation, however recovery further complicated by ICU myopathy, status post tracheostomy and gastrostomy on 06/07/2021. No events overnight. Now tolerating pressure support. Critical Care Time (minutes): 30 Physical Exam Vital Signs: Vital Signs: Last Vital Signs Temp 97.3 F 06/10/21 12:00 Pulse 75 06/10/21 12:00 Resp 31 H 06/10/21 12:00 BP 164/65 H 06/10/21 12:00 Pulse Ox 92 06/10/21 12:00 Oxygen Flow Rate 15 06/08/21 14:55 BMI result Body Mass Index 30.0 Const: General: no acute distress and lethargic ( Arousable, follows commands) Orientation/consciousness: lethargic ( Arousable, follows commands) Eyes: Sclerae: sclerae normal EOM: EOMs intact bilaterally Neck: Neck: Yes no lymphadenopathy, Yes trachea midline, Yes supple and Yes other ( tracheostomy on vent) Resp: Auscultation: clear to auscultation bilaterally Cardio: Rate: regular rate Rhythm: abnormal rhythm irregularly irregular Heart sounds: no gallops, no murmurs and no rubs GI: Palpation (GI): Soft to palpation and Other GI palpation findings present ( Nontender) Auscultation: normal bowel sounds Extrem: General: No clubbing, No cyanosis and Yes pedal edema (1+ bilateral) Objective Data Labs CBC & Chem 7: 06/10/21 05:20 06/10/21 05:20 Labs: Laboratory Results - last 24 hr 06/09/21 06/10/21 06/10/21 17:13 00:32 05:19 WBC RBC Hgb Hct MCV MCH MCHC RDW Plt Count MPV Immature Gran % (Auto) Neut % (Auto) Lymph % (Auto) [place] % (Auto) Eos % (Auto) Baso % (Auto) Lymph # (Auto) [place] # (Auto) Eos # (Auto) Baso # (Auto) Abs Immat Gran (auto) Absolute Neuts (auto) Absolute Nucleated RBC Nucleated RBC % (auto) VBG pH VBG pCO2 VBG pO2 VBG HCO3 VBG O2 Saturation VBG Base Excess Sodium Potassium Chloride Carbon Dioxide Anion Gap BUN Creatinine Estim Creat Clear Calc Estimated GFR POC Glucose 213 H 144 H 149 H Random Glucose Calcium Phosphorus Magnesium Albumin 06/10/21 06/10/21 06/10/21 05:20 05:20 05:31 WBC 9.6 RBC 2.61 L Hgb 7.4 L Hct 25.4 L MCV 97.3 MCH 28.4 MCHC 29.1 L RDW 18.7 H Plt Count 115 L MPV 12.3 Immature Gran % (Auto) 0.9 H Neut % (Auto) 78.3 H Lymph % (Auto) 11.3 L [place] % (Auto) 8.4 Eos % (Auto) 1.0 Baso % (Auto) 0.1 Lymph # (Auto) 1.1 L [place] # (Auto) 0.8 Eos # (Auto) 0.1 Baso # (Auto) 0.0 Abs Immat Gran (auto) 0.09 H Absolute Neuts (auto) 7.5 Absolute Nucleated RBC 0.000 Nucleated RBC % (auto) 0.0 VBG pH 7.50 H VBG pCO2 38 VBG pO2 47 VBG HCO3 30 H VBG O2 Saturation 76.0 VBG Base Excess 7.0 Sodium 149 H Potassium 4.0 Chloride 112 H Carbon Dioxide 31 H Anion Gap 10 L BUN 47 H Creatinine 0.70 Estim Creat Clear Calc 127.3 Estimated GFR > 60 POC Glucose Random Glucose 188 H Calcium 8.8 Phosphorus 2.5 L Magnesium 1.8 Albumin 3.4 L 06/10/21 11:29 WBC RBC Hgb Hct MCV MCH MCHC RDW Plt Count MPV Immature Gran % (Auto) Neut % (Auto) Lymph % (Auto) [place] % (Auto) Eos % (Auto) Baso % (Auto) Lymph # (Auto) [place] # (Auto) Eos # (Auto) Baso # (Auto) Abs Immat Gran (auto) Absolute Neuts (auto) Absolute Nucleated RBC Nucleated RBC % (auto) VBG pH VBG pCO2 VBG pO2 VBG HCO3 VBG O2 Saturation VBG Base Excess Sodium Potassium Chloride Carbon Dioxide Anion Gap BUN Creatinine Estim Creat Clear Calc Estimated GFR POC Glucose 219 H Random Glucose Calcium Phosphorus Magnesium Albumin Microbiology Microbiology Results: Microbiology 05/30/21 16:15 Blood - Venous Blood Culture - Final No growth after 5 days. 05/30/21 16:15 Blood - Venous Blood Culture - Final No growth after 5 days. 05/31/21 00:50 Urine Catheterized - Camacho Catheter Urine Culture - Final No growth. 05/26/21 06:44 Blood - Venous Blood Culture - Final No growth after 5 days. 05/26/21 06:44 Blood - Venous Blood Culture - Final No growth after 5 days. 05/28/21 11:25 Sputum - Suctioned Gram Stain - Final 05/28/21 11:25 Sputum - Suctioned Sputum Culture - Final 05/22/21 11:32 Urine Catheterized - Camacho Catheter Urine Culture - Final Serratia marcescens 05/19/21 16:47 Blood - Venous Blood Culture - Final No growth after 5 days. 05/19/21 16:49 Blood - Venous Blood Culture - Final No growth after 5 days. 05/22/21 15:44 Sputum - Suctioned Gram Stain - Final 05/22/21 15:44 Sputum - Suctioned Sputum Culture - Final 05/15/21 08:25 Blood - Venous Blood Culture - Final No growth after 5 days. 05/15/21 08:25 Blood - Venous Blood Culture - Final No growth after 5 days. 05/17/21 15:20 Sputum - Suctioned Gram Stain - Final 05/17/21 15:20 Sputum - Suctioned Sputum Culture - Final 05/13/21 Unknown Urine Catheterized - Camacho Catheter Urine Culture - Final Serratia marcescens 04/28/21 22:17 Blood - Venous Blood Culture - Final No growth after 5 days. 04/28/21 22:17 Blood - Venous Blood Culture - Final No growth after 5 days. Progress Note: A&P Assessment and plan (1) Myopathy: Status: Acute (2) Aortic stenosis due to bicuspid aortic valve: Status: Acute (3) Diabetes: Status: Acute (4) CHF (congestive heart failure): Status: Acute (5) Type 2 diabetes mellitus: Status: Acute (6) SARS-CoV-2 positive: Status: Acute (7) CKD (chronic kidney disease) stage 3, GFR 30-59 ml/min: Status: Acute (8) Acute hypoxemic respiratory failure due to COVID-19: Status: Acute Assessment and Plan: Assessment: 66-year-old gentleman with underlying history of hypertension, CHF, diabetes mellitus admitted with acute hypoxic respiratory failure secondary to COVID-19 ARDS, requiring ventilatory support and further complicated by slow recovery, ventilator dependence, and ICU myopathy Plan: Neuro: ICU myopathy, continue aggressive physical therapy. Cardiac: Mobitz type 2 status post temporary pacemaker, removed 01/27/2021. Underlying paroxysmal Aflutter/AFib, may require ppm placement. Underlying congestive heart failure. Continue with judicious diuresis. Eliquis held secondary to minor GI bleed, now on aspirin. Pulmonary: Acute hypoxic respiratory failure secondary to COVID-19 ARDS now tolerating pressure support. FiO2 requirements improved significantly. Status post tracheostomy on 06/07/2021. Continue to titrate off as tolerated. Renal: Acute renal failure on the background of chronic kidney disease, likely secondary to COVID-19 , resolved. Renal function improved. Nephrology service care appreciated. Continue to monitor electrolytes, renal indices, and urine output. Endo: No acute issues. GI: No acute issues. Status post PEG on 10/06/2020. ID: COVID-19, on systemic glucocorticoids. Heme/Onc: No acute issues. Psych: No acute issues. Miscellaneous: No acute issues. Prophylaxis: heparin , omeprazole Diet: Tube feeds Critical care time spent: 30 minutes Quality Stroke Does the patient have a stroke diagnosis?: No VTE Prior VTE?: No VTE Risk Level:: Medical - moderate - high VTE Device Contraindication: Treatment Not Indicated VTE Drug Contraindication: N/A - Med Ordered
[2021-06-10] MEDS: Insulin Lispro 100 UNIT/ML 3 ML VIAL SUBCUT ×2 (12:57→17:12)
--- NOTE | 2021-06-10 15:08 | MHC.CM.PN ---
Pt continues on trach/Peg support in ICU: doing well: responds to commands: attempting to communicate with staff. Updates remitted to [facility] who hope to have a bed early this week. CM to follow for updates and finalization of d/c plans
--- NOTE | 2021-06-10 16:42 | P.PNNP_ITS ---
Subjective Subjective Date of Service: 06/10/21 Principal diagnosis: COVID, JÚNIOR, CKD Interval history: 66-year-old gentleman with underlying history hypertension congestive heart failure, diabetes mellitus, COVID positive on 04/19/2021, admitted on 04/28/2021 with shortness of breath and hypoxemia. Patient treated with systemic glucocorticoids. hospital course significant for worsening hypoxemia requiring transfer to intensive care unit on 05/09/2021 and intubation on 05/13/2021, progressive acute kidney injury, and development of Mobitz type 2 block requiring placement of temporary pacer on 05/13/2021. Temporary pacer taken out on 05/17/2021.With slowly improving oxygenation, however recovery further complicated by ICU myopathy, status post tracheostomy and gastrostomy on 06/07/2021. No events overnight. Now tolerating pressure support. Physical Exam Vital Signs: Vital Signs: Last Vital Signs Temp 100.4 F 06/10/21 16:00 Pulse 74 06/10/21 16:00 Resp 18 06/10/21 16:00 BP 136/72 06/10/21 16:00 Pulse Ox 94 06/10/21 16:00 Oxygen Flow Rate 15 06/08/21 14:55 BMI result Body Mass Index 30.0 Const: Other: Intubated General: cooperative, comfortable, no acute distress, ill appearing, lethargic ( Arousable, follows commands) and other ( somnolent, arousable) Orientation/consciousness: patient oriented x3 and lethargic ( Arousable, follows commands) HENMT: Other: Unremarkable Head: Yes normal to inspection, Yes normocephalic and Yes atraumatic Mouth: Normal oral and palatal mucosa present Eyes: General: appearance normal, both eyes and all related structures Sclerae: sclerae normal Pupils: Equal, round and reactive pupils present EOM: EOMs intact bilaterally Neck: Neck: Yes normal visual inspection, Yes no lymphadenopathy, Yes trachea midline, Yes supple and Yes other ( tracheostomy on vent) Chest: Chest palpation & inspection: normal inspection of the chest and No rash Resp: Effort & Inspection: normal respiratory effort, able to speak in complete sentences, audible wheezes, labored and no respiratory distress Auscultation: clear to auscultation bilaterally, crackles ( diffuse bilateral) and diminished lung sounds Cardio: Jugular venous distension: no JVD Palpation: normal PMI and no palpable S3 Rate: regular rate, bradycardic and tachycardic Rhythm: regular rhythm and abnormal rhythm irregularly irregular Heart sounds: S1 normal heart sound present, S2 normal heart sound present, no gallops, no murmurs and no rubs GI: Palpation (GI): Soft to palpation, nontender and Other GI palpation findings present ( Nontender) Auscultation: normal bowel sounds Back/Spine/Pelvis: Other: unremarkable Skin: General skin exam: no rashes or lesions noted Neuro: Other: Sedated General: patient oriented x3 Cranial nerves: Yes Equal, round and reactive pupils present and Yes Other cranial nerve findings present Cognition (Neuro): normal cognition Motor exam (neuro): No Asterix is during motor activity present Extrem: General: Yes normal to inspection, Yes no clubbing, cyanosis or edema, Yes no pedal edema, No clubbing, No cyanosis, Yes edema ( 1+ bilateral) and Yes pedal edema (1+ bilateral) Psych: Mental Status: other Objective Data Labs CBC & Chem 7: 06/10/21 05:20 06/10/21 05:20 Labs: Laboratory Results - last 24 hr 06/09/21 06/10/21 06/10/21 17:13 00:32 05:19 WBC RBC Hgb Hct MCV MCH MCHC RDW Plt Count MPV Immature Gran % (Auto) Neut % (Auto) Lymph % (Auto) [place] % (Auto) Eos % (Auto) Baso % (Auto) Lymph # (Auto) [place] # (Auto) Eos # (Auto) Baso # (Auto) Abs Immat Gran (auto) Absolute Neuts (auto) Absolute Nucleated RBC Nucleated RBC % (auto) VBG pH VBG pCO2 VBG pO2 VBG HCO3 VBG O2 Saturation VBG Base Excess Sodium Potassium Chloride Carbon Dioxide Anion Gap BUN Creatinine Estim Creat Clear Calc Estimated GFR POC Glucose 213 H 144 H 149 H Random Glucose Calcium Phosphorus Magnesium Albumin 06/10/21 06/10/21 06/10/21 05:20 05:20 05:31 WBC 9.6 RBC 2.61 L Hgb 7.4 L Hct 25.4 L MCV 97.3 MCH 28.4 MCHC 29.1 L RDW 18.7 H Plt Count 115 L MPV 12.3 Immature Gran % (Auto) 0.9 H Neut % (Auto) 78.3 H Lymph % (Auto) 11.3 L [place] % (Auto) 8.4 Eos % (Auto) 1.0 Baso % (Auto) 0.1 Lymph # (Auto) 1.1 L [place] # (Auto) 0.8 Eos # (Auto) 0.1 Baso # (Auto) 0.0 Abs Immat Gran (auto) 0.09 H Absolute Neuts (auto) 7.5 Absolute Nucleated RBC 0.000 Nucleated RBC % (auto) 0.0 VBG pH 7.50 H VBG pCO2 38 VBG pO2 47 VBG HCO3 30 H VBG O2 Saturation 76.0 VBG Base Excess 7.0 Sodium 149 H Potassium 4.0 Chloride 112 H Carbon Dioxide 31 H Anion Gap 10 L BUN 47 H Creatinine 0.70 Estim Creat Clear Calc 127.3 Estimated GFR > 60 POC Glucose Random Glucose 188 H Calcium 8.8 Phosphorus 2.5 L Magnesium 1.8 Albumin 3.4 L 06/10/21 11:29 WBC RBC Hgb Hct MCV MCH MCHC RDW Plt Count MPV Immature Gran % (Auto) Neut % (Auto) Lymph % (Auto) [place] % (Auto) Eos % (Auto) Baso % (Auto) Lymph # (Auto) [place] # (Auto) Eos # (Auto) Baso # (Auto) Abs Immat Gran (auto) Absolute Neuts (auto) Absolute Nucleated RBC Nucleated RBC % (auto) VBG pH VBG pCO2 VBG pO2 VBG HCO3 VBG O2 Saturation VBG Base Excess Sodium Potassium Chloride Carbon Dioxide Anion Gap BUN Creatinine Estim Creat Clear Calc Estimated GFR POC Glucose 219 H Random Glucose Calcium Phosphorus Magnesium Albumin Microbiology Microbiology Results: Microbiology 05/30/21 16:15 Blood - Venous Blood Culture - Final No growth after 5 days. 05/30/21 16:15 Blood - Venous Blood Culture - Final No growth after 5 days. 05/31/21 00:50 Urine Catheterized - Camacho Catheter Urine Culture - Final No growth. 05/26/21 06:44 Blood - Venous Blood Culture - Final No growth after 5 days. 05/26/21 06:44 Blood - Venous Blood Culture - Final No growth after 5 days. 05/28/21 11:25 Sputum - Suctioned Gram Stain - Final 05/28/21 11:25 Sputum - Suctioned Sputum Culture - Final 05/22/21 11:32 Urine Catheterized - Camacho Catheter Urine Culture - Final Serratia marcescens 05/19/21 16:47 Blood - Venous Blood Culture - Final No growth after 5 days. 05/19/21 16:49 Blood - Venous Blood Culture - Final No growth after 5 days. 05/22/21 15:44 Sputum - Suctioned Gram Stain - Final 05/22/21 15:44 Sputum - Suctioned Sputum Culture - Final 05/15/21 08:25 Blood - Venous Blood Culture - Final No growth after 5 days. 05/15/21 08:25 Blood - Venous Blood Culture - Final No growth after 5 days. 05/17/21 15:20 Sputum - Suctioned Gram Stain - Final 05/17/21 15:20 Sputum - Suctioned Sputum Culture - Final 05/13/21 Unknown Urine Catheterized - Camacho Catheter Urine Culture - Final Serratia marcescens 04/28/21 22:17 Blood - Venous Blood Culture - Final No growth after 5 days. 04/28/21 22:17 Blood - Venous Blood Culture - Final No growth after 5 days. Procedures Date of Service Date of Service: 06/10/21 Assessment & Plan Assessment and plan (1) JÚNIOR (acute kidney injury): Status: Inactive Assessment and Plan: (1) CKD (chronic kidney disease) stage 3, GFR 30-59 ml/min: ?Status:?Acute (2) SARS-CoV-2 positive: ?Status:?Acute ?Assessment and Plan: JÚNIOR due to compromised kidney perfusion in the setting of SARS COV 2 known CKD 3 due to DM/HTN followed by Dr Feldman Hypernatremia - due to free water deficit REC Add free water or D5W no indication for dialysis today sodium zirconium as needed to correct hyperkalemia Concur with current medical management follow kidney function and electrolytes Time Spent With Patient Time: Total time spent is greater than 50% in coordination of care (as documented) at patient's floor/unit and/or counseling patient: Time with patient: 15 - 24 minutes Progress Note: Quality Stroke Does the patient have a stroke diagnosis?: No
[2021-06-10 17:15] LABS: Glucose, Whole Blood 232 mg/dL (60-115)
[2021-06-10] MEDS: traZODone HCL 100 MG TABLET PO (20:29)
[2021-06-10] MEDS: Atorvastatin Calcium 80 MG TABLET PO (20:29)
[2021-06-11] VITALS (31 sets, daily range): BP systolic 57–195; BP diastolic 28–107; PULSE 45–100; RESP 14–26; TEMP 34.6–38.2; O2SAT 94–100; BMI 29.9
[2021-06-11] MEDS: Insulin Lispro 100 UNIT/ML 3 ML VIAL SUBCUT ×4 (00:26→17:53)
[2021-06-11 00:37] LABS: Glucose, Whole Blood 174 mg/dL (60-115)
[2021-06-11] MEDS: Heparin Sodium,Porcine 5,000 UNIT/ML VIAL 5000 UNIT SUBCUT ×3 (04:13→20:51)
[2021-06-11] MEDS: Metoclopramide HCl 10 MG/2 ML VIAL 5 MG IVPUSH ×4 (04:14→20:51)
[2021-06-11 05:53] LABS: Glucose, Whole Blood 146 mg/dL (60-115)
[2021-06-11 05:56] LABS: VBG Base Excess 5.7 mmol/L; VBG HCO3 30 mmol/L (22-26); VBG pCO2 44 mmHg; VBG pH 7.43 (7.32-7.43); VBG pO2 48 mmHg
[2021-06-11 06:13] LABS: MANUAL DIFF FLAG NO
[2021-06-11 06:17] LABS: Basophils Percent Auto 0.1 % (0-2); Eosinophils Absolute Auto 0.1 X10*3/uL (0.0-0.4); Hematocrit 24.7 % (42.0-52.0); Hemoglobin 7.1 g/dl (14.0-18.0); Imm Gran Abs Auto 0.08 X10*3/uL (0.00-0.03); Imm Gran Pct Auto 0.8 % (0.0-0.4); Lymphocytes Absolute Auto 1.2 X10*3/uL (1.2-4.9); Lymphocytes Percent Auto 11.8 % (20-40); Mean Corpuscular HGB Conc 28.7 g/dl (31.0-36.0); Mean Corpuscular Hemoglobin 28.2 pg (27.0-33.0); Mean Platelet Volume 12.2 fL (9.4-12.4); Monocytes Absolute Auto 0.8 X10*3/uL (0.1-1.2); Monocytes Percent Auto 8.2 % (2-11); Neutrophils Absolute Auto 8.1 x10*3/uL (2.0-8.3); Neutrophils Percent Auto 78.1 % (45-73); Platelet Count 110 X10*3/uL (160-400); Red Blood Count 2.52 X10*6/uL (4.60-5.80); Red Cell Distribution Width 18.4 % (11.0-16.0); White Blood Count 10.3 X10*3/uL (4.8-10.8)
[2021-06-11 06:33] LABS: Albumin Level 3.1 g/dL (3.5-5.0); Anion Gap 13 (12-20); Blood Urea Nitrogen 50 mg/dL (9-16); Calcium 8.3 mg/dL (8.4-10.2); Carbon Dioxide 28 mmol/L (22-29); Chloride 112 mmol/L (96-108); Creatinine Clr Calc Pharmacy 123.5; Estimated Glomerular Filt Rate > 60; Glucose Random 149 mg/dL (60-115); Phosphorus 3.1 mg/dL (2.7-4.5); Potassium 4.3 mmol/L (3.3-5.1); Sodium 149 mmol/L (135-145)
[2021-06-11] MEDS: methylPREDNISolone Sod Succ 40 MG/ML VIAL IVPUSH (08:14)
[2021-06-11] MEDS: Aspirin 81 MG TAB.CHEW 324 MG NG-TUBE (08:14)
[2021-06-11] MEDS: 0.9 % Sodium Chloride Flush 3 ML SYRINGE IVFLUSH ×3 (08:14→23:56)
[2021-06-11] MEDS: Chlorhexidine Gluc Oral Rinse 15 ML MOUTHWASH BUCCAL ×3 (08:14→20:08)
[2021-06-11] MEDS: Insulin Glargine,Hum.rec.anlog 100 UNIT/ML 10 ML VIAL 22 UNIT SUBCUT ×2 (08:46→20:08)
[2021-06-11] MEDS: fentaNYL citrate/NS 1,000 MCG/100 ML PLAST..BAG 10 MCG IVCONT (08:52)
[2021-06-11 08:55] LABS: Venous Blood Gas Refer to POC result
[2021-06-11 09:36] LABS: Glucose, Whole Blood 146 mg/dL (60-115)
--- NOTE | 2021-06-11 10:44 | P.PNCC_ITS ---
Subjective Subjective Date of Service: 06/11/21 Interval History: ICU day 33 for COVID-19 ARDS, ICM myopathy, failure to wean from ventilatory support. 66-year-old gentleman with underlying history hypertension congestive heart failure, diabetes mellitus, COVID positive on 04/19/2021, admitted on 04/28/2021 with shortness of breath and hypoxemia. Patient treated with systemic glucocort icoids. hospital course significant for worsening hypoxemia requiring transfer to intensive care unit on 05/09/2021 and intubation on 05/13/2021, progressive acute kidney injury, and development of Mobitz type 2 block requiring placement of temporary pacer on 05/13/2021. Temporary pacer taken out on 05/17/2021.With slowly improving oxygenation, however recovery further complicated by ICU myopathy, status post tracheostomy and gastrostomy on 06/07/2021. No events overnight. Now tolerating pressure support for several hours Critical Care Time (minutes): 30 Physical Exam Vital Signs: Vital Signs: Last Vital Signs Temp 98.6 F 06/11/21 10:00 Pulse 82 06/11/21 10:00 Resp 26 H 06/11/21 10:00 BP 112/34 L 06/11/21 10:00 Pulse Ox 99 06/11/21 10:00 Oxygen Flow Rate 15 06/08/21 14:55 BMI result Body Mass Index 29.9 Const: General: no acute distress and other (Sedated on the vent, follows commands with sedation vacation) Eyes: Sclerae: sclerae normal EOM: EOMs intact bilaterally Neck: Neck: Yes no lymphadenopathy, Yes trachea midline, Yes supple and Yes other (Tracheostomy on the vent) Resp: Auscultation: crackles (Bibasilar) Cardio: Rate: regular rate Rhythm: abnormal rhythm irregularly irregular Heart sounds: no gallops, no murmurs and no rubs GI: Palpation (GI): Soft to palpation and Other GI palpation findings present ( Nontender) Auscultation: normal bowel sounds Extrem: General: No clubbing, No cyanosis and Yes pedal edema (Trace bilateral) Objective Data Labs CBC & Chem 7: 06/11/21 05:35 06/11/21 05:35 Labs: Laboratory Results - last 24 hr 06/10/21 06/10/21 06/11/21 11:29 17:06 00:21 WBC RBC Hgb Hct MCV MCH MCHC RDW Plt Count MPV Immature Gran % (Auto) Neut % (Auto) Lymph % (Auto) [place] % (Auto) Eos % (Auto) Baso % (Auto) Lymph # (Auto) [place] # (Auto) Eos # (Auto) Baso # (Auto) Abs Immat Gran (auto) Absolute Neuts (auto) Absolute Nucleated RBC Nucleated RBC % (auto) VBG pH VBG pCO2 VBG pO2 VBG HCO3 VBG O2 Saturation VBG Base Excess Sodium Potassium Chloride Carbon Dioxide Anion Gap BUN Creatinine Estim Creat Clear Calc Estimated GFR POC Glucose 219 H 232 H 174 H Random Glucose Calcium Phosphorus Magnesium Albumin 06/11/21 06/11/21 06/11/21 05:35 05:35 05:49 WBC 10.3 RBC 2.52 L Hgb 7.1 L Hct 24.7 L MCV 98.0 MCH 28.2 MCHC 28.7 L RDW 18.4 H Plt Count 110 L MPV 12.2 Immature Gran % (Auto) 0.8 H Neut % (Auto) 78.1 H Lymph % (Auto) 11.8 L [place] % (Auto) 8.2 Eos % (Auto) 1.0 Baso % (Auto) 0.1 Lymph # (Auto) 1.2 [place] # (Auto) 0.8 Eos # (Auto) 0.1 Baso # (Auto) 0.0 Abs Immat Gran (auto) 0.08 H Absolute Neuts (auto) 8.1 Absolute Nucleated RBC 0.000 Nucleated RBC % (auto) 0.0 VBG pH VBG pCO2 VBG pO2 VBG HCO3 VBG O2 Saturation VBG Base Excess Sodium 149 H Potassium 4.3 Chloride 112 H Carbon Dioxide 28 Anion Gap 13 BUN 50 H Creatinine 0.72 Estim Creat Clear Calc 123.5 Estimated GFR > 60 POC Glucose 146 H Random Glucose 149 H Calcium 8.3 L Phosphorus 3.1 Magnesium 2.0 Albumin 3.1 L 06/11/21 06/11/21 05:49 08:17 WBC RBC Hgb Hct MCV MCH MCHC RDW Plt Count MPV Immature Gran % (Auto) Neut % (Auto) Lymph % (Auto) [place] % (Auto) Eos % (Auto) Baso % (Auto) Lymph # (Auto) [place] # (Auto) Eos # (Auto) Baso # (Auto) Abs Immat Gran (auto) Absolute Neuts (auto) Absolute Nucleated RBC Nucleated RBC % (auto) VBG pH 7.43 VBG pCO2 44 VBG pO2 48 VBG HCO3 30 H VBG O2 Saturation 76.0 VBG Base Excess 5.7 Sodium Potassium Chloride Carbon Dioxide Anion Gap BUN Creatinine Estim Creat Clear Calc Estimated GFR POC Glucose 146 H Random Glucose Calcium Phosphorus Magnesium Albumin Microbiology Microbiology Results: Microbiology 05/30/21 16:15 Blood - Venous Blood Culture - Final No growth after 5 days. 05/30/21 16:15 Blood - Venous Blood Culture - Final No growth after 5 days. 05/31/21 00:50 Urine Catheterized - Camacho Catheter Urine Culture - Final No growth. 05/26/21 06:44 Blood - Venous Blood Culture - Final No growth after 5 days. 05/26/21 06:44 Blood - Venous Blood Culture - Final No growth after 5 days. 05/28/21 11:25 Sputum - Suctioned Gram Stain - Final 05/28/21 11:25 Sputum - Suctioned Sputum Culture - Final 05/22/21 11:32 Urine Catheterized - Camacho Catheter Urine Culture - Final Serratia marcescens 05/19/21 16:47 Blood - Venous Blood Culture - Final No growth after 5 days. 05/19/21 16:49 Blood - Venous Blood Culture - Final No growth after 5 days. 05/22/21 15:44 Sputum - Suctioned Gram Stain - Final 05/22/21 15:44 Sputum - Suctioned Sputum Culture - Final 05/15/21 08:25 Blood - Venous Blood Culture - Final No growth after 5 days. 05/15/21 08:25 Blood - Venous Blood Culture - Final No growth after 5 days. 05/17/21 15:20 Sputum - Suctioned Gram Stain - Final 05/17/21 15:20 Sputum - Suctioned Sputum Culture - Final 05/13/21 Unknown Urine Catheterized - Camacho Catheter Urine Culture - Final Serratia marcescens 04/28/21 22:17 Blood - Venous Blood Culture - Final No growth after 5 days. 04/28/21 22:17 Blood - Venous Blood Culture - Final No growth after 5 days. Progress Note: A&P Assessment and plan (1) Failure to wean from mechanical ventilation: Status: Acute (2) Atrial flutter: Status: Acute (3) Myopathy: Status: Acute (4) Aortic stenosis due to bicuspid aortic valve: Status: Acute (5) Diabetes: Status: Acute (6) CHF (congestive heart failure): Status: Acute (7) SARS-CoV-2 positive: Status: Acute (8) CKD (chronic kidney disease) stage 3, GFR 30-59 ml/min: Status: Acute (9) Acute hypoxemic respiratory failure due to COVID-19: Status: Acute Assessment and Plan: Assessment:? 66-year-old gentleman with underlying history of hypertension, CHF, diabetes mellitus admitted with acute hypoxic respiratory failure secondary to COVID-19 ARDS, requiring ventilatory support and further complicated by slow recovery, ventilator dependence, and ICU myopathy Plan: Neuro: ? ICU myopathy, continue aggressive physical therapy. Cardiac: Mobitz type 2 status post temporary pacemaker, removed 01/27/2021.? Underlying paroxysmal Aflutter/AFib, may require ppm placement. Underlying congestive heart failure. Eliquis held secondary to minor GI bleed, now on aspirin. Pulmonary:? ? Acute hypoxic respiratory failure secondary to COVID-19 ARDS now? tolerating pressure support.? FiO2 requirements improved significantly. Status post tracheostomy on 06/07/2021.? Continue to titrate off as tolerated. Renal:? ? Acute renal failure on the background of chronic kidney disease, likely secondary to COVID-19 , resolved.? Renal function? improved.? Nephrology service care appreciated. Continue to monitor electrolytes, renal indices, and urine output. Endo:? No acute issues. GI:? No acute issues.? Status post PEG on 10/06/2020. ID:? ? COVID-19,? on systemic glucocorticoids. Heme/Onc:? No acute issues. Psych:? No acute issues. Miscellaneous:? No acute issues. Prophylaxis: ? heparin , omeprazole Diet:? Tube feeds Critical care time spent: ? 30 minutes Quality Stroke Does the patient have a stroke diagnosis?: No VTE Prior VTE?: No VTE Risk Level:: Medical - moderate - high VTE Device Contraindication: Treatment Not Indicated VTE Drug Contraindication: N/A - Med Ordered
[2021-06-11] MEDS: Albumin Human 25 % 100 ML IV ×3 (11:11→20:06)
--- NOTE | 2021-06-11 11:50 | PM.PNNEP ---
Subjective Subjective Date of Service: 06/13/21 Principal diagnosis: COVID, JÚNIOR, CKD Interval history: ICU day 33 for COVID-19 ARDS, ICM myopathy, failure to wean from ventilatory support. 66-year-old gentleman with underlying history hypertension congestive heart failure, diabetes mellitus, COVID positive on 04/19/2021, admitted on 04/28/2021 with shortness of breath and hypoxemia. Patient treated with systemic glucocorticoids. hospital course significant for worsening hypoxemia requiring transfer to intensive care unit on 05/09/2021 and intubation on 05/13/2021, progressive acute kidney injury, and development of Mobitz type 2 block requiring placement of temporary pacer on 05/13/2021. Temporary pacer taken out on 05/17/2021.With slowly improving oxygenation, however recovery further complicated by ICU myopathy, status post tracheostomy and gastrostomy on 06/07/2021. No events overnight. Now tolerating pressure support for several hours Physical Exam Vital Signs: Vital Signs: Last Vital Signs Temp 98.4 F 06/11/21 11:00 Pulse 95 06/11/21 11:00 Resp 24 H 06/11/21 11:00 BP 100/52 L 06/11/21 11:00 Pulse Ox 100 06/11/21 11:00 Oxygen Flow Rate 15 06/08/21 14:55 BMI result Body Mass Index 29.9 Const: Other: Intubated General: cooperative, comfortable, no acute distress, ill appearing, lethargic ( Arousable, follows commands) and other ( somnolent, arousable) Orientation/consciousness: patient oriented x3 and lethargic ( Arousable, follows commands) HENMT: Other: Unremarkable Head: Yes normal to inspection, Yes normocephalic and Yes atraumatic Mouth: Normal oral and palatal mucosa present Eyes: General: appearance normal, both eyes and all related structures Sclerae: sclerae normal Pupils: Equal, round and reactive pupils present EOM: EOMs intact bilaterally Neck: Neck: Yes normal visual inspection, Yes no lymphadenopathy, Yes trachea midline, Yes supple and Yes other ( tracheostomy on vent) Chest: Chest palpation & inspection: normal inspection of the chest and No rash Resp: Effort & Inspection: normal respiratory effort, able to speak in complete sentences, audible wheezes, labored and no respiratory distress Auscultation: clear to auscultation bilaterally, crackles ( diffuse bilateral) and diminished lung sounds Cardio: Jugular venous distension: no JVD Palpation: normal PMI and no palpable S3 Rate: regular rate, bradycardic and tachycardic Rhythm: regular rhythm and abnormal rhythm irregularly irregular Heart sounds: S1 normal heart sound present, S2 normal heart sound present, no gallops, no murmurs and no rubs GI: Palpation (GI): Soft to palpation, nontender and Other GI palpation findings present ( Nontender) Auscultation: normal bowel sounds Back/Spine/Pelvis: Other: unremarkable Skin: General skin exam: no rashes or lesions noted Neuro: Other: Sedated General: patient oriented x3 Cranial nerves: Yes Equal, round and reactive pupils present and Yes Other cranial nerve findings present Cognition (Neuro): normal cognition Motor exam (neuro): No Asterixis during motor activity present Extrem: General: Yes normal to inspection, Yes no clubbing, cyanosis or edema, Yes no pedal edema, No clubbing, No cyanosis, Yes edema ( 1+ bilateral) and Yes pedal edema (1+ bilateral) Psych: Mental Status: other Objective Data Labs CBC & Chem 7: 06/13/21 05:30 06/13/21 05:30 Labs: Laboratory Results - last 24 hr 06/10/21 06/11/21 06/11/21 17:06 00:21 05:35 WBC 10.3 RBC 2.52 L Hgb 7.1 L Hct 24.7 L MCV 98.0 MCH 28.2 MCHC 28.7 L RDW 18.4 H Plt Count 110 L MPV 12.2 Immature Gran % (Auto) 0.8 H Neut % (Auto) 78.1 H Lymph % (Auto) 11.8 L [place] % (Auto) 8.2 Eos % (Auto) 1.0 Baso % (Auto) 0.1 Lymph # (Auto) 1.2 [place] # (Auto) 0.8 Eos # (Auto) 0.1 Baso # (Auto) 0.0 Abs Immat Gran (auto) 0.08 H Absolute Neuts (auto) 8.1 Absolute Nucleated RBC 0.000 Nucleated RBC % (auto) 0.0 VBG pH VBG pCO2 VBG pO2 VBG HCO3 VBG O2 Saturation VBG Base Excess Sodium Potassium Chloride Carbon Dioxide Anion Gap BUN Creatinine Estim Creat Clear Calc Estimated GFR POC Glucose 232 H 174 H Random Glucose Calcium Phosphorus Magnesium Albumin 06/11/21 06/11/21 06/11/21 05:35 05:49 05:49 WBC RBC Hgb Hct MCV MCH MCHC RDW Plt Count MPV Immature Gran % (Auto) Neut % (Auto) Lymph % (Auto) [place] % (Auto) Eos % (Auto) Baso % (Auto) Lymph # (Auto) [place] # (Auto) Eos # (Auto) Baso # (Auto) Abs Immat Gran (auto) Absolute Neuts (auto) Absolute Nucleated RBC Nucleated RBC % (auto) VBG pH 7.43 VBG pCO2 44 VBG pO2 48 VBG HCO3 30 H VBG O2 Saturation 76.0 VBG Base Excess 5.7 Sodium 149 H Potassium 4.3 Chloride 112 H Carbon Dioxide 28 Anion Gap 13 BUN 50 H Creatinine 0.72 Estim Creat Clear Calc 123.5 Estimated GFR > 60 POC Glucose 146 H Random Glucose 149 H Calcium 8.3 L Phosphorus 3.1 Magnesium 2.0 Albumin 3.1 L 06/11/21 08:17 WBC RBC Hgb Hct MCV MCH MCHC RDW Plt Count MPV Immature Gran % (Auto) Neut % (Auto) Lymph % (Auto) [place] % (Auto) Eos % (Auto) Baso % (Auto) Lymph # (Auto) [place] # (Auto) Eos # (Auto) Baso # (Auto) Abs Immat Gran (auto) Absolute Neuts (auto) Absolute Nucleated RBC Nucleated RBC % (auto) VBG pH VBG pCO2 VBG pO2 VBG HCO3 VBG O2 Saturation VBG Base Excess Sodium Potassium Chloride Carbon Dioxide Anion Gap BUN Creatinine Estim Creat Clear Calc Estimated GFR POC Glucose 146 H Random Glucose Calcium Phosphorus Magnesium Albumin Microbiology Microbiology Results: Microbiology 05/30/21 16:15 Blood - Venous Blood Culture - Final No growth after 5 days. 05/30/21 16:15 Blood - Venous Blood Culture - Final No growth after 5 days. 05/31/21 00:50 Urine Catheterized - Camacho Catheter Urine Culture - Final No growth. 05/26/21 06:44 Blood - Venous Blood Culture - Final No growth after 5 days. 05/26/21 06:44 Blood - Venous Blood Culture - Final No growth after 5 days. 05/28/21 11:25 Sputum - Suctioned Gram Stain - Final 05/28/21 11:25 Sputum - Suctioned Sputum Culture - Final 05/22/21 11:32 Urine Catheterized - Camacho Catheter Urine Culture - Final Serratia marcescens 05/19/21 16:47 Blood - Venous Blood Culture - Final No growth after 5 days. 05/19/21 16:49 Blood - Venous Blood Culture - Final No growth after 5 days. 05/22/21 15:44 Sputum - Suctioned Gram Stain - Final 05/22/21 15:44 Sputum - Suctioned Sputum Culture - Final 05/15/21 08:25 Blood - Venous Blood Culture - Final No growth after 5 days. 05/15/21 08:25 Blood - Venous Blood Culture - Final No growth after 5 days. 05/17/21 15:20 Sputum - Suctioned Gram Stain - Final 05/17/21 15:20 Sputum - Suctioned Sputum Culture - Final 05/13/21 Unknown Urine Catheterized - Camacho Catheter Urine Culture - Final Serratia marcescens 04/28/21 22:17 Blood - Venous Blood Culture - Final No growth after 5 days. 04/28/21 22:17 Blood - Venous Blood Culture - Final No growth after 5 days. Procedures Date of Service Date of Service: 06/11/21 Assessment & Plan Assessment and plan (1) JÚNIOR (acute kidney injury): Status: Inactive Assessment and Plan: (1) CKD (chronic kidney disease) stage 3, GFR 30-59 ml/min: ?Status:?Acute (2) SARS-CoV-2 positive: ?Status:?Acute ?Assessment and Plan: JÚNIOR due to compromised kidney perfusion in the setting of SARS COV 2 known CKD 3 due to DM/HTN followed by Dr Feldman Hypernatremia - due to free water deficit REC Add free water or D5W indication for dialysis today sodium zirconium as needed to correct hyperkalemia Concur with current medical management follow kidney function and electrolytes Time Spent With Patient Time: Total time spent is greater than 50% in coordination of care (as documented) at patient's floor/unit and/or counseling patient: Progress Note: Quality Stroke Does the patient have a stroke diagnosis?: No
[2021-06-11 12:15] LABS: Glucose, Whole Blood 276 mg/dL (60-115)
[2021-06-11 17:13] LABS: Glucose, Whole Blood 259 mg/dL (60-115)
--- NOTE | 2021-06-11 18:34 | PC.NURSE ---
tmax 100.4, vss, levopphed gtt started for short timer per emar. pt able to nod yes/no to questions, attempts to talk. on fentanyl for comfort, ls clear, trach cleaned by repiratory. attempted pressure support, pt unable to tolerate it. switched back to previous settings. bath given, repo q2hr, facetimes with .
[2021-06-11] MEDS: traZODone HCL 100 MG TABLET PO (20:07)
[2021-06-11] MEDS: Atorvastatin Calcium 80 MG TABLET PO (20:08)
[2021-06-11 20:45] LABS: Glucose, Whole Blood 180 mg/dL (60-115)
[2021-06-11] MEDS: fentaNYL citrate/NS 1,000 MCG/100 ML PLAST..BAG 7.5 MCG IVCONT (20:46)
[2021-06-12] VITALS (35 sets, daily range): BP systolic 115–207; BP diastolic 41–113; PULSE 57–109; RESP 15–33; TEMP 35–38.1; O2SAT 91–100; BMI 29.6
[2021-06-12 00:15] LABS: Glucose, Whole Blood 126 mg/dL (60-115)
[2021-06-12] MEDS: Midazolam HCl/PF 2 MG/2 ML VIAL 1 MG IVPUSH (02:15)
[2021-06-12] MEDS: Albumin Human 25 % 100 ML IV (02:19)
--- NOTE | 2021-06-12 03:32 | PC.NURSE ---
Addendum entered by Lamont Dowd RN 06/12/21 03:54: Correction: assumed care from JOSEPH Bernal, at 1900 Original Note: Assumed care from JOSEPH Bernal, at 2300. Patient alert, somewhat resistant to care, nods and shakes his head to indicate yes and no, and by doing so, he denies pain, denies nausea, denies dizziness. Patient has tracheotomy, #8 cuffed portex with disposable inner cannula, and is on ventilator, with AC settings, rate 14; TV 500; PEEP 5; FiO2 50%; inline secretions small, thick, cream. Te 8.5 - 10.2. Patient coughs at times, and also is talking/mouthing words near continuously and is pushing air past the cuff. Patient appeared to be somewhat delerious, unable to write about what he is trying to express by mouthing words. BP was increasing SBP 170s increased gradually to 190, and ORTHOPEDIC SPECIALIST aware and ordered hydralazine, with oncoming nurse to administer. Patient on monitor is in sinus rhythm with 1st degree AV block, and occasionally in Mobitz 2. Patient has +3 pitting edema to left hand, noted to be hanging his left hand down at edge of bed repeatedly, nursing attempting to position left hand with hand above elbow on pillow, discussed with ORTHOPEDIC SPECIALIST, no new orders at this time. Patient core temp somewhat inaccurate, rectal temp 99.8. Curry with sediment in orange colored urine coming out of curry about 50-100 cc/hour. Left IJ TLC was placed on 05/13. Patient on glucerna max rate 80 cc/hour to PEG, well tolerated with 300 cc h20 q4 hours for hypernatremia, well tolerated. 22 Units of lantus this evening well tolerated. No Lispro coverage required. BM this evening. Dressing to buttocks changed, appears to be three shallow stage 2 wounds in a DTI across bilateral buttocks, dressings done per orders. minimal serosanguineous drainage.
[2021-06-12 05:45] LABS: VBG Base Excess 7.6 mmol/L; VBG HCO3 32 mmol/L (22-26); VBG pCO2 44 mmHg; VBG pH 7.46 (7.32-7.43); VBG pO2 44 mmHg
[2021-06-12] MEDS: Heparin Sodium,Porcine 5,000 UNIT/ML VIAL 5000 UNIT SUBCUT ×3 (05:46→19:54)
[2021-06-12] MEDS: Metoclopramide HCl 10 MG/2 ML VIAL 5 MG IVPUSH ×3 (05:46→16:05)
[2021-06-12 05:47] LABS: MANUAL DIFF FLAG NO
[2021-06-12 05:48] LABS: Eosinophils Absolute Auto 0.1 X10*3/uL (0.0-0.4); Eosinophils Percent Auto 0.8 % (0-4); Hematocrit 22.9 % (42.0-52.0); Imm Gran Abs Auto 0.07 X10*3/uL (0.00-0.03); Imm Gran Pct Auto 0.7 % (0.0-0.4); Lymphocytes Absolute Auto 1.1 X10*3/uL (1.2-4.9); Lymphocytes Percent Auto 11.5 % (20-40); Mean Corpuscular HGB Conc 28.8 g/dl (31.0-36.0); Mean Corpuscular Hemoglobin 28.3 pg (27.0-33.0); Mean Corpuscular Volume 98.3 fL (80.0-98.0); Mean Platelet Volume 11.5 fL (9.4-12.4); Monocytes Absolute Auto 0.7 X10*3/uL (0.1-1.2); Monocytes Percent Auto 7.3 % (2-11); Neutrophils Absolute Auto 7.8 x10*3/uL (2.0-8.3); Neutrophils Percent Auto 79.7 % (45-73); Platelet Count 112 X10*3/uL (160-400); Red Blood Count 2.33 X10*6/uL (4.60-5.80); Red Cell Distribution Width 18.5 % (11.0-16.0); Venous Blood Gas Refer to POC result; White Blood Count 9.8 X10*3/uL (4.8-10.8)
[2021-06-12 06:10] LABS: Alanine Aminotransferase 23 U/L (0-40); Albumin Level 3.9 g/dL (3.5-5.0); Alkaline Phosphatase 45 U/L (39-117); Anion Gap 11 (12-20); Aspartate Amino Transferase 15 U/L (5-37); Blood Urea Nitrogen 50 mg/dL (9-16); Calcium 8.9 mg/dL (8.4-10.2); Carbon Dioxide 30 mmol/L (22-29); Chloride 112 mmol/L (96-108); Creatinine Clr Calc Pharmacy 115.5; Estimated Glomerular Filt Rate > 60; Glucose Random 111 mg/dL (60-115); Magnesium 2.1 mg/dL (1.6-2.6); Phosphorus 2.5 mg/dL (2.7-4.5); Sodium 149 mmol/L (135-145); Total Protein 5.7 g/dL (6.5-8.0)
[2021-06-12] MEDS: fentaNYL citrate/NS 1,000 MCG/100 ML PLAST..BAG 12.5 MCG IVCONT (06:21)
[2021-06-12 06:27] LABS: Hemoglobin 6.6 g/dl (14.0-18.0)
[2021-06-12 06:36] LABS: Glucose, Whole Blood 102 mg/dL (60-115)
[2021-06-12] MEDS: 0.9 % Sodium Chloride Flush 3 ML SYRINGE IVFLUSH ×2 (07:15→16:05)
[2021-06-12] MEDS: Insulin Glargine,Hum.rec.anlog 100 UNIT/ML 10 ML VIAL 22 UNIT SUBCUT ×2 (08:35→19:54)
[2021-06-12] MEDS: methylPREDNISolone Sod Succ 40 MG/ML VIAL IVPUSH (08:35)
[2021-06-12] MEDS: Aspirin 81 MG TAB.CHEW 324 MG NG-TUBE (08:35)
[2021-06-12] MEDS: Chlorhexidine Gluc Oral Rinse 15 ML MOUTHWASH BUCCAL ×3 (08:35→19:57)
[2021-06-12] MEDS: fentaNYL citrate/PF 100 MCG/2 ML VIAL IVPUSH (10:06)
--- NOTE | 2021-06-12 10:25 | MHC.CLN ---
F/U PATIENT WITH TRACH AND PEG TUBE. DISCUSSED AT ROUNDS WITH MD CONTINUE TUBE FEEDING OF GLUCERNA 1.0 AT MAX GOAL RATE OF 80 ML PER HOUR WITH FREE WATER FLUSH 300 ML EVERY 4 HOURS. PROVIDES: 1920 KCAL (24 KCAL/KG BASED ON IBW); 80 G PROTEIN (.98 G/KG); FREE WATER FROM FORMULA 1638 ML PLUS ETLHT=5094 ML (42ML/KG BASED ON IBW)). CONTINUE TO MONITOR TOLERANCE, RESIDUALS, AND LYTES.
[2021-06-12 10:43] LABS: COVID-19 Test Negative (Negative); IDNOW Serial# 9DD0AD1C
[2021-06-12 11:49] LABS: Glucose, Whole Blood 166 mg/dL (60-115)
[2021-06-12] MEDS: Insulin Lispro 100 UNIT/ML 3 ML VIAL SUBCUT ×2 (12:01→19:55)
[2021-06-12] MEDS: cloNIDine 0.2 MG PATCH.TDWK TRANSDERMA (13:07)
[2021-06-12] MEDS: fentaNYL 100 MCG PATCH.TD72 TRANSDERMA (13:08)
[2021-06-12] MEDS: HYDROmorphone HCl 1 MG/ML SYRINGE 2 MG IVPUSH (13:22)
--- NOTE | 2021-06-12 13:40 | MHC.CM.PN ---
Pt is s/p trach and peg and is being followed by [facility] for post d/c rehab. Pt with drop in Hgb to 6.6 today: s/p one unit PRBC. [facility] would like to ensure 24 hours stability with some sort of GI eval (FOB?) to r/o any GIB. Information given to ICU staff for f/u. [facility] will re-review on 06/13/21 and if all is acceptable to them, pt will be able to transfer. Call placed to pt's spouse, Nakia relaying all the above. She is in agreement with plan and is requesting to see pt prior to d/c. Due no visitor policy here, Nakia will need to see pt outside while he's boarding ALS transport. CM to follow in anticipation of 06/13 d/c
--- NOTE | 2021-06-12 17:06 | P.PNCC_ITS ---
Subjective Subjective Date of Service: 06/12/21 Interval History: Mr. Roberson was transferred to ICU on May 09 bec of progressive hypoxemic respiratory failure 2? to COVID pneumonia. The patient is a 66-year-old male with past medical history of HTN, diabetes, CKD (baseline creatinine about 2.1), and CHF.? He is on furosemide and Kayexalate and insulin at home. The patient was diagnosed with COVID on April 19 after a few days flu like symptoms (estimated symptom onset date April 17, or earlier).? Presented to the ED on April 28 w SOB and Sat 60s.? Admitted to Medicine with COVID pneumonia and treated in the usual fashion.? Subsequently transferred to ICU on May 09 and intubated on May 13 He had problems with slow heart rate and 2? heart block Mobitz type 1, had a temporary PM put in for a few days.? On May 15, he had an episode of maroon stools with a 2G drop in his Hb.? Eliquis and steroids were stopped.? It resolved on its own; he was not scoped, did not need a tx. Over time, his oxygen requirement came down nicely but he developed an ICU/steroid myopathy, was unable to be weaned.? He underwent tracheostomy and PEG on Jun 07.? Notably, his COVID swabs have been repeatedly positive. Currently sedated on just fentanyl at 100ug/hr.? He gets intermit agitated/anxious, and his BP goes up to the 190 systolic range.? I gave him 2mg IV Dilaudid and he calmed down very nicely.? Earlier on AC 14/500/40%/+5, RR was 14, Ve 6L, PIP 31cm, ETCO2 34, Sat 98%.? Central venous blood gas this morning showed 7.46/44/+7.? HR 80, SR w PACs.? BP 159/73.? (He?s on no antihypertensives.)? Tmax 100.6.? No JVD at 30?.? Chest CTA, w normal exp phase.? Irreg rhythm with soft heart tones.? I believe I heard a 1/6 systolic ejection murmur at the apex.? Abdomen is benign.? Patient has no pretibial edema, possibly trace central edema. We put the patient on pressure support ventilation with PSV 15 cm.? The patient lasted about 6 hours. LABORATORY DATA: ?Below.? Notably, Hb drifting down slowly, hit 6.6 this morning.? Stool has been brown. ?Plat count steady.? Na 149 steady.? BUN/creat 50/0.7.? Phos 2.5 Covid MARISA sent today was finally negative. IMPRESSION: 1. COVID pneumonia.? Symptom onset date Apr 17 or earlier.? Still on Solumedrol 40 mg daily, ASA 325, Atorvastatin, and SQ heparin TID. 2. Bilat pulmonary infiltrates with ARDS.? 2? to above. 3. Hypoxemic respiratory failure.? Secondary to above.? Oxygenation dramatically improved but he developed ICU/steroid myopathy and required tracheostomy and PEG.? Doing well now.? Will required extended weaning and Rehab.? Plan transfer to [facility] tomorrow. 4. Baseline CKD.? Creat is now below baseline, and potassium is now down while on full feeds, without needing a resin binder. 5. Baseline DM.? On Lantus and sliding scale.? The Lantus dose that he is on now, 22 units b.i.d., looks just about perfect for him. 6. Baseline CHF.? BNP was 1098 on admission.? He was diuresed on and off during this hospitalization.? None since 06/04. 7. ? Aortic stenosis.? Need to redo his echo to get a better look at the valve.? That can be done as an outpatient. 8. GI bleed on May 15.? No source identified.? BID PPI were added, and the patient ultimately went back on DVT prophylaxis, aspirin, and steroids.? No further evidence of bleeding. 9. ID.? No clear evidence of sepsis or other bacterial infection.? All repeat cultures were negative on May 30 and .? No indication for antibiotics at this time. 10. Metabolic:? Hyperkalemia resolved with improvement in his creatinine 11. Hyperntremia.? He?s getting water flushes 300 cc q4hr.? If the sodium level is not down by tomorrow, have to add IV D5W. 12. Neuro/psych.? I?ve started him on clonidine TTS 0.2 weekly, and written him for a fentanyl patch starting at 100 ug, so that we can d/c the fentanyl infusion.? Also wrote him for prn Ativan and prn Dilaudid. 13. Nutrition:? On goal rate Glucerna. Spoke with the patient?s earlier today in regards to hosp course, current condition, and disposition.? Arranged for her to be able to come in and visit. Critical care time (including discussion with Dr. Barker, full chart review, and hospital course summary): ?90+ min. Critical Care Time (minutes): 90 Physical Exam Vital Signs: Vital Signs: Last Vital Signs Temp 100.6 F H 06/12/21 13:00 Pulse 73 06/12/21 17:00 Resp 24 H 06/12/21 17:00 BP 182/83 H 06/12/21 17:00 Pulse Ox 98 06/12/21 17:00 Oxygen Flow Rate 15 06/08/21 14:55 BMI result Body Mass Index 29.6 Objective Data Labs CBC & Chem 7: 06/12/21 05:40 06/12/21 05:40 Labs: Laboratory Results - last 24 hr 06/11/21 06/11/21 06/11/21 17:05 20:14 23:54 WBC RBC Hgb Hct MCV MCH MCHC RDW Plt Count MPV Immature Gran % (Auto) Neut % (Auto) Lymph % (Auto) [place] % (Auto) Eos % (Auto) Baso % (Auto) Lymph # (Auto) [place] # (Auto) Eos # (Auto) Baso # (Auto) Abs Immat Gran (auto) Absolute Neuts (auto) Absolute Nucleated RBC Nucleated RBC % (auto) VBG pH VBG pCO2 VBG pO2 VBG HCO3 VBG O2 Saturation VBG Base Excess Sodium Potassium Chloride Carbon Dioxide Anion Gap BUN Creatinine Estim Creat Clear Calc Estimated GFR POC Glucose 259 H 180 H 126 H Random Glucose Calcium Phosphorus Magnesium Total Bilirubin AST ALT Alkaline Phosphatase Total Protein Albumin COVID-19 (MARISA) COVID-19 Clin Com Blood Type Antibody Screen Crossmatch 06/12/21 06/12/21 06/12/21 05:37 05:40 05:40 WBC 9.8 RBC 2.33 L Hgb 6.6 L* Hct 22.9 L MCV 98.3 H MCH 28.3 MCHC 28.8 L RDW 18.5 H Plt Count 112 L MPV 11.5 Immature Gran % (Auto) 0.7 H Neut % (Auto) 79.7 H Lymph % (Auto) 11.5 L [place] % (Auto) 7.3 Eos % (Auto) 0.8 Baso % (Auto) 0.0 Lymph # (Auto) 1.1 L [place] # (Auto) 0.7 Eos # (Auto) 0.1 Baso # (Auto) 0.0 Abs Immat Gran (auto) 0.07 H Absolute Neuts (auto) 7.8 Absolute Nucleated RBC 0.000 Nucleated RBC % (auto) 0.0 VBG pH 7.46 H VBG pCO2 44 VBG pO2 44 VBG HCO3 32 H VBG O2 Saturation 73.0 VBG Base Excess 7.6 Sodium 149 H Potassium 4.0 Chloride 112 H Carbon Dioxide 30 H Anion Gap 11 L BUN 50 H Creatinine 0.77 Estim Creat Clear Calc 115.5 Estimated GFR > 60 POC Glucose Random Glucose 111 Calcium 8.9 D Phosphorus 2.5 L Magnesium 2.1 Total Bilirubin 1.0 AST 15 ALT 23 Alkaline Phosphatase 45 Total Protein 5.7 L Albumin 3.9 D COVID-19 (MARISA) COVID-[facility] Com Blood Type Antibody Screen Crossmatch 06/12/21 06/12/21 06/12/21 05:41 07:19 10:14 WBC RBC Hgb Hct MCV MCH MCHC RDW Plt Count MPV Immature Gran % (Auto) Neut % (Auto) Lymph % (Auto) [place] % (Auto) Eos % (Auto) Baso % (Auto) Lymph # (Auto) [place] # (Auto) Eos # (Auto) Baso # (Auto) Abs Immat Gran (auto) Absolute Neuts (auto) Absolute Nucleated RBC Nucleated RBC % (auto) VBG pH VBG pCO2 VBG pO2 VBG HCO3 VBG O2 Saturation VBG Base Excess Sodium Potassium Chloride Carbon Dioxide Anion Gap BUN Creatinine Estim Creat Clear Calc Estimated GFR POC Glucose 102 Random Glucose Calcium Phosphorus Magnesium Total Bilirubin AST ALT Alkaline Phosphatase Total Protein Albumin COVID-19 (MARISA) Negative COVID-[employer] See Note Blood Type A Negative Antibody Screen NEGATIVE Crossmatch See Detail 06/12/21 11:40 WBC RBC Hgb Hct MCV MCH MCHC RDW Plt Count MPV Immature Gran % (Auto) Neut % (Auto) Lymph % (Auto) [place] % (Auto) Eos % (Auto) Baso % (Auto) Lymph # (Auto) [place] # (Auto) Eos # (Auto) Baso # (Auto) Abs Immat Gran (auto) Absolute Neuts (auto) Absolute Nucleated RBC Nucleated RBC % (auto) VBG pH VBG pCO2 VBG pO2 VBG HCO3 VBG O2 Saturation VBG Base Excess Sodium Potassium Chloride Carbon Dioxide Anion Gap BUN Creatinine Estim Creat Clear Calc Estimated GFR POC Glucose 166 H Random Glucose Calcium Phosphorus Magnesium Total Bilirubin AST ALT Alkaline Phosphatase Total Protein Albumin COVID-19 (MARISA) COVID-19 Clin Com Blood Type Antibody Screen Crossmatch Microbiology Microbiology Results: Microbiology 05/30/21 16:15 Blood - Venous Blood Culture - Final No growth after 5 days. 05/30/21 16:15 Blood - Venous Blood Culture - Final No growth after 5 days. 05/31/21 00:50 Urine Catheterized - Camacho Catheter Urine Culture - Final No growth. 05/26/21 06:44 Blood - Venous Blood Culture - Final No growth after 5 days. 05/26/21 06:44 Blood - Venous Blood Culture - Final No growth after 5 days. 05/28/21 11:25 Sputum - Suctioned Gram Stain - Final 05/28/21 11:25 Sputum - Suctioned Sputum Culture - Final 05/22/21 11:32 Urine Catheterized - Camacho Catheter Urine Culture - Final Serratia marcescens 05/19/21 16:47 Blood - Venous Blood Culture - Final No growth after 5 days. 05/19/21 16:49 Blood - Venous Blood Culture - Final No growth after 5 days. 05/22/21 15:44 Sputum - Suctioned Gram Stain - Final 05/22/21 15:44 Sputum - Suctioned Sputum Culture - Final 05/15/21 08:25 Blood - Venous Blood Culture - Final No growth after 5 days. 05/15/21 08:25 Blood - Venous Blood Culture - Final No growth after 5 days. 05/17/21 15:20 Sputum - Suctioned Gram Stain - Final 05/17/21 15:20 Sputum - Suctioned Sputum Culture - Final 05/13/21 Unknown Urine Catheterized - Camacho Catheter Urine Culture - Final Serratia marcescens 04/28/21 22:17 Blood - Venous Blood Culture - Final No growth after 5 days. 04/28/21 22:17 Blood - Venous Blood Culture - Final No growth after 5 days. Quality Stroke Does the patient have a stroke diagnosis?: No VTE Prior VTE?: No VTE Risk Level:: Medical - moderate - high VTE Device Contraindication: Treatment Not Indicated VTE Drug Contraindication: N/A - Med Ordered Critical Care Time Critical Care Time (minutes): 90
[2021-06-12 19:17] LABS: Glucose, Whole Blood 199 mg/dL (60-115)
[2021-06-12] MEDS: hydrALAZINE HCl 20 MG/ML VIAL IVPUSH (19:54)
[2021-06-12] MEDS: HYDROmorphone HCl 1 MG/ML SYRINGE IVPUSH (19:56)
[2021-06-12] MEDS: Atorvastatin Calcium 80 MG TABLET PO (19:57)
[2021-06-12] MEDS: traZODone HCL 100 MG TABLET PO (19:57)
[2021-06-13] VITALS (28 sets, daily range): BP systolic 95–168; BP diastolic 46–93; PULSE 42–113; RESP 14–31; TEMP 34.7–38.1; O2SAT 89–100; BMI 29.5
[2021-06-13] MEDS: Metoclopramide HCl 10 MG/2 ML VIAL 5 MG IVPUSH ×2 (00:23→03:35)
[2021-06-13] MEDS: 0.9 % Sodium Chloride Flush 3 ML SYRINGE IVFLUSH ×3 (00:23→14:43)
[2021-06-13 01:32] LABS: Glucose, Whole Blood 113 mg/dL (60-115)
[2021-06-13] MEDS: LORazepam 2 MG/ML VIAL 1 MG IVPUSH ×2 (01:33→12:35)
[2021-06-13] MEDS: Insulin Lispro 100 UNIT/ML 3 ML VIAL SUBCUT ×3 (01:33→17:57)
[2021-06-13] MEDS: Heparin Sodium,Porcine 5,000 UNIT/ML VIAL 5000 UNIT SUBCUT (03:35)
[2021-06-13] MEDS: Magnesium Sulfate/D5W 1 GM/100 ML PIGGYBACK IV (05:20)
[2021-06-13 05:31] LABS: Glucose, Whole Blood 89 mg/dL (60-115)
[2021-06-13 05:37] LABS: VBG Base Excess 5.9 mmol/L; VBG HCO3 30 mmol/L (22-26); VBG pCO2 41 mmHg; VBG pH 7.46 (7.32-7.43); VBG pO2 42 mmHg
[2021-06-13 05:40] LABS: Venous Blood Gas Refer to POC result
[2021-06-13 06:18] LABS: Hematocrit 25.9 % (42.0-52.0); Hemoglobin 7.8 g/dl (14.0-18.0); Mean Corpuscular HGB Conc 30.1 g/dl (31.0-36.0); Mean Corpuscular Hemoglobin 29.7 pg (27.0-33.0); Mean Corpuscular Volume 98.5 fL (80.0-98.0); Mean Platelet Volume 12.4 fL (9.4-12.4); Platelet Count 124 X10*3/uL (160-400); Red Blood Count 2.63 X10*6/uL (4.60-5.80); White Blood Count 10.5 X10*3/uL (4.8-10.8)
[2021-06-13 06:32] LABS: OBS Int Ctl Valid YES; OBS1 NEGATIVE (NEGATIVE)
[2021-06-13 06:37] LABS: Anion Gap 10 (12-20); Blood Urea Nitrogen 51 mg/dL (9-16); Calcium 8.9 mg/dL (8.4-10.2); Carbon Dioxide 31 mmol/L (22-29); Chloride 111 mmol/L (96-108); Creatinine Clr Calc Pharmacy 117.9; Estimated Glomerular Filt Rate > 60; Glucose Random 84 mg/dL (60-115); Magnesium 2.2 mg/dL (1.6-2.6); Phosphorus 2.6 mg/dL (2.7-4.5); Potassium 3.6 mmol/L (3.3-5.1); Sodium 148 mmol/L (135-145)
[2021-06-13] MEDS: Sodium,Potassium Phosphates POWD.PACK 2 PACKET PO ×2 (06:42→09:26)
[2021-06-13] MEDS: Aspirin 81 MG TAB.CHEW 324 MG NG-TUBE (08:01)
[2021-06-13] MEDS: Insulin Glargine,Hum.rec.anlog 100 UNIT/ML 10 ML VIAL 22 UNIT SUBCUT (08:01)
[2021-06-13] MEDS: Chlorhexidine Gluc Oral Rinse 15 ML MOUTHWASH BUCCAL ×3 (08:02→20:27)
[2021-06-13] MEDS: predniSONE 20 MG TABLET 40 MG PO (08:02)
[2021-06-13] MEDS: Enoxaparin Sodium 60 MG/0.6 ML SYRINGE 50 MG SUBCUT (08:11)
--- NOTE | 2021-06-13 10:02 | PM.PNNEP ---
Subjective Subjective Date of Service: 06/14/21 Principal diagnosis: COVID, JÚNIOR, CKD Interval history: Events noted Physical Exam Vital Signs: Vital Signs: Last Vital Signs Temp 98.1 F 06/13/21 09:00 Pulse 50 06/13/21 09:00 Resp 16 06/13/21 09:00 BP 141/60 H 06/13/21 09:00 Pulse Ox 90 L 06/13/21 09:00 Oxygen Flow Rate 15 06/08/21 14:55 BMI result Body Mass Index 29.5 Const: General: ill appearing Resp: Effort & Inspection: no respiratory distress Auscultation: diminished lung sounds Cardio: Jugular venous distension: no JVD Heart sounds: no rubs GI: Palpation (GI): nontender Auscultation: normal bowel sounds Skin: General skin exam: no rashes or lesions noted Neuro: Motor exam (neuro): No Asterixis during motor activity present Objective Data Labs CBC & Chem 7: 06/14/21 08:51 06/13/21 05:30 Labs: Laboratory Results - last 24 hr 06/12/21 06/12/21 06/12/21 07:19 10:14 11:40 WBC RBC Hgb Hct MCV MCH MCHC RDW Plt Count MPV Absolute Nucleated RBC Nucleated RBC % (auto) VBG pH VBG pCO2 VBG pO2 VBG HCO3 VBG O2 Saturation VBG Base Excess Sodium Potassium Chloride Carbon Dioxide Anion Gap BUN Creatinine Estim Creat Clear Calc Estimated GFR POC Glucose 166 H Random Glucose Calcium Phosphorus Magnesium Stool Occult Blood COVID-19 (MARISA) Negative COVID-19 Clin Com See Note Crossmatch See Detail 06/12/21 06/13/21 06/13/21 18:41 00:25 05:17 WBC RBC Hgb Hct MCV MCH MCHC RDW Plt Count MPV Absolute Nucleated RBC Nucleated RBC % (auto) VBG pH VBG pCO2 VBG pO2 VBG HCO3 VBG O2 Saturation VBG Base Excess Sodium Potassium Chloride Carbon Dioxide Anion Gap BUN Creatinine Estim Creat Clear Calc Estimated GFR POC Glucose 199 H 113 89 Random Glucose Calcium Phosphorus Magnesium Stool Occult Blood COVID-19 (MARISA) COVID-19 Clin Com Crossmatch 06/13/21 06/13/21 06/13/21 05:20 05:30 05:30 WBC 10.5 RBC 2.63 L Hgb 7.8 L Hct 25.9 L MCV 98.5 H MCH 29.7 MCHC 30.1 L RDW 18.0 H Plt Count 124 L MPV 12.4 Absolute Nucleated RBC 0.000 Nucleated RBC % (auto) 0.0 VBG pH VBG pCO2 VBG pO2 VBG HCO3 VBG O2 Saturation VBG Base Excess Sodium 148 H Potassium 3.6 Chloride 111 H Carbon Dioxide 31 H Anion Gap 10 L BUN 51 H Creatinine 0.75 Estim Creat Clear Calc 117.9 Estimated GFR > 60 POC Glucose Random Glucose 84 Calcium 8.9 Phosphorus 2.6 L Magnesium 2.2 Stool Occult Blood NEGATIVE COVID-19 ([facility]) COVID-19 Clin Com Crossmatch 06/13/21 05:30 WBC RBC Hgb Hct MCV MCH MCHC RDW Plt Count MPV Absolute Nucleated RBC Nucleated RBC % (auto) VBG pH 7.46 H VBG pCO2 41 VBG pO2 42 VBG HCO3 30 H VBG O2 Saturation 71.0 VBG Base Excess 5.9 Sodium Potassium Chloride Carbon Dioxide Anion Gap BUN Creatinine Estim Creat Clear Calc Estimated GFR POC Glucose Random Glucose Calcium Phosphorus Magnesium Stool Occult Blood COVID-19 (MARISA) COVID-19 Clin Com Crossmatch Microbiology Microbiology Results: Microbiology 05/30/21 16:15 Blood - Venous Blood Culture - Final No growth after 5 days. 05/30/21 16:15 Blood - Venous Blood Culture - Final No growth after 5 days. 05/31/21 00:50 Urine Catheterized - [place]acho Catheter Urine Culture - Final No growth. 05/26/21 06:44 Blood - Venous Blood Culture - Final No growth after 5 days. 05/26/21 06:44 Blood - Venous Blood Culture - Final No growth after 5 days. 05/28/21 11:25 Sputum - Suctioned Gram Stain - Final 05/28/21 11:25 Sputum - Suctioned Sputum Culture - Final 05/22/21 11:32 Urine Catheterized - [place]acho Catheter Urine Culture - Final Serratia marcescens 05/19/21 16:47 Blood - Venous Blood Culture - Final No growth after 5 days. 05/19/21 16:49 Blood - Venous Blood Culture - Final No growth after 5 days. 05/22/21 15:44 Sputum - Suctioned Gram Stain - Final 05/22/21 15:44 Sputum - Suctioned Sputum Culture - Final 05/15/21 08:25 Blood - Venous Blood Culture - Final No growth after 5 days. 05/15/21 08:25 Blood - Venous Blood Culture - Final No growth after 5 days. 05/17/21 15:20 Sputum - Suctioned Gram Stain - Final 05/17/21 15:20 Sputum - Suctioned Sputum Culture - Final 05/13/21 Unknown Urine Catheterized - [place] Catheter Urine Culture - Final Serratia marcescens 04/28/21 22:17 Blood - Venous Blood Culture - Final No growth after 5 days. 04/28/21 22:17 Blood - Venous Blood Culture - Final No growth after 5 days. Procedures Date of Service Date of Service: 06/13/21 Assessment & Plan Assessment and plan (1) JÚNIOR (acute kidney injury): Status: Inactive Assessment and Plan: (1) CKD (chronic kidney disease) stage 3, GFR 30-59 ml/min: ?Status:?Acute (2) SARS-CoV-2 positive: ?Status:?Acute ?Assessment and Plan: JÚNIOR due to compromised kidney perfusion in the setting of SARS COV 2 known CKD 3 due to DM/HTN followed by Dr Feldman Hypernatremia - due to free water deficit - Mild Alkalosis REC no indication for dialysis Keep I >>O with free water sodium zirconium as needed to correct hyperkalemia Concur with current medical management follow kidney function and electrolytes Time Spent With Patient Time with patient: 15 - 24 minutes Progress Note: Quality Stroke Does the patient have a stroke diagnosis?: No
--- NOTE | 2021-06-13 10:47 | P.PNCC_ITS ---
Subjective Subjective Date of Service: 06/13/21 Interval History: ? ICU PROGRESS NOTE / TRANSFER NOTE Date of admission:? 04/29/2021 Date of discharge:? Uncertain DISCHARGE DIAGNOSES: 1. Bilateral COVID pneumonia.? Symptom onset date Apr 17 or earlier. 2. Bilat pulmonary infiltrates with ARDS. 3. Hypoxemic respiratory failure. 4. ICU/steroid myopathy. 5. S/P tracheostomy and PEG. 6. Baseline CKD. 7. JÚNIOR.? Resolving. 8. Baseline DM. 9. Baseline CHF.? BNP was 1098 on admission.? He was diuresed on and off during this hospitalization.? Last Lasix dose was 06/04. 10. Aortic stenosis. 11. GI bleed on May 15.? Undetermined source.? Did not recur. 12. Hyperkalemia.? Resolved. 13. Hyperntremia. 14. Mild agitation/anxiety. 15. Swollen left upper extremity.? DVT not found on US today. Mr Roberson is a 66-year-old male with past medical history of HTN, diabetes, CKD (baseline creatinine about 2.1), and CHF.? He was on furosemide and Kayexalate and insulin at home. The patient was diagnosed with COVID on April 19 after a few days of flu like symptoms (estimated symptom onset date April 17, or earlier).? Presented to the ED on April 28 w SOB and Sat 60s.? Admitted to Medicine with COVID pneumonia and treated with Decadron.? Subsequently transferred to ICU on May 09 and intubated on May 13 He had problems with slow heart rate and 2? heart block Mobitz type 1, and had a temporary PM put in for a few days.? On May 15, he had an episode of maroon stools with a 2G drop in his Hb.? Eliquis and steroids were stopped.? It resolved on its own; he was not scoped, did not need a tx. Over time, his oxygen requirement came down nicely but he developed an ICU/steroid myopathy, was unable to be weaned.? He underwent tracheostomy and PEG on Jun 07.? Notably, his COVID swabs had been repeatedly positive until yesterday he had the first negative test.? Last night, his visited for a few hours for the first time.? There was definitely some connection. Yesterday, he was switched from a fentanyl drip at 100ug/hr to a fentanyl 100ug patch, and he was started on Clonidine TTS 0.2, in addition to prn Ativan and Dilaudid.? He?s no longer on any intravenous drips or medications, other than the prn Ativan and prn Dilaudid.? He?s easily arousable this morning, but probably disoriented. ?Trying to mouth words, can?t understand what he is trying to say.? He did nod yes to me when I asked him if his visited last night. Heart rate 49, sinus rhythm with 1? AV block and PACs.? Blood pressure 145/58.? Afebrile.? On AC 14/500/40%/+5, RR is 18, Ve 8.8L, PIP 30cm, ETCO2 29, Sat 99%. ?Central venous blood gas this morning showed 7.46/41/+5.? ?No JVD at 30?.? Chest CTA, w normal exp phase.? I believe I heard a 1/6 systolic ejection mu rmur.? Abdomen is benign.? Patient has no pretibial edema, possibly trace central edema.? His left UE is definitely swollen compared to the right side.? He has a left IJV CVC in place. LABORATORY DATA: ?Below.? Notably, Hb up to 7.8 (from 6.6 yest) after transfusion of 1 unit RBCs.? Stool was brown with negative occult blood.? Plat count up slightly.? Na down slightly to 148.? Renal indices stable.? Phos 2.6 after repletion yesterday. IMPRESSION: 1.? Bilateral COVID pneumonia.? Symptom onset date Apr 17 or earlier.? Today switched from Solumedrol 40 mg daily to Predinison? 40 mg daily, which can be tapered as his oxygenation improves.? Continue ASA 325 mg daily and Atorvastatin 80 mg daily. 2. Bilat pulmonary infiltrates with ARDS. 3. Hypoxemic respiratory failure. 4. ICU/steroid myopathy. 5. S/P tracheostomy and PEG.? Doing well now.? Will required extended weaning and Rehab.? Plan transfer to [facility] today. 6. Baseline CKD. 7. JÚNIOR.? Resolving.? Creat is now below baseline, and potassium is now down while on full feeds, without needing a resin binder. 8. Baseline DM.? On Lantus and sliding scale.? The Lantus dose that he is on now, 22 units bid, looks just about perfect for him. 9. Baseline CHF.? BNP was 1098 on admission.? He was diuresed on and off during this hospitalization.? Last Lasix dose was 06/04. 10. Aortic stenosis.? Need to redo his echo to get a better look at the valve.? That can be done as an outpatient. 11. GI bleed on May 15.? No source identified.? Treated with bid PPI.? Resolved by itself.? Was never scoped, did not require transfusion.? No further evidence of GI bleeding.? Continue bid PPI. 12. Hyperkalemia.? Resolved with improvement in his creatinine 13. Hyperntremia.? On water flushes 300 cc q4hr.? Slight improvement today. 14. Mild agitation/anxiety.? Started on clonidine TTS 0.2 weekly and fentanyl patch.? Plan is to taper the fentanyl patch every three days, going from 100ug - > 75ug -> 50ug -> 25ug -> off.? He can also get prn oral or IV Ativan and/or Dilaudid. 15. Swollen Rt upp extremity.? No DVT found today.? If extremity is still swollen in 5-7 days, the ultrasound should be repeated.? Given that there is high risk for DVT and a strong clinical suspicion, in the meantime, the patient should be anticoagulated.? Discussed with Dr. Henson from radiology and he agrees.I will recommend.? If the US in 5-7 days is negative again, then DVT- level anticoagulation can be discontinued. So the patient is now on Lovenox 90 mg bid. 16. Nutrition:? On goal rate Glucerna. 17. Left internal jugular central venous line in place:? Insertion date was May 26. 18. F/U CXR being done today to r/o barotrauma. Time (including mult d/w case management and radiology): 75+ min. ([id number] + [id number]) Critical Care Time (minutes): 0 Physical Exam Vital Signs: Vital Signs: Last Vital Signs Temp 99.0 F 06/13/21 10:00 Pulse 65 06/13/21 10:00 Resp 17 06/13/21 10:00 BP 164/59 H 06/13/21 10:00 Pulse Ox 95 06/13/21 10:00 Oxygen Flow Rate 15 06/08/21 14:55 BMI result Body Mass Index 29.5 Objective Data Labs CBC & Chem 7: 06/13/21 05:30 06/13/21 05:30 Labs: Laboratory Results - last 24 hr 06/12/21 06/12/21 06/12/21 07:19 11:40 18:41 WBC RBC Hgb Hct MCV MCH MCHC RDW Plt Count MPV Absolute Nucleated RBC Nucleated RBC % (auto) VBG pH VBG pCO2 VBG pO2 VBG HCO3 VBG O2 Saturation VBG Base Excess Sodium Potassium Chloride Carbon Dioxide Anion Gap BUN Creatinine Estim Creat Clear Calc Estimated GFR POC Glucose 166 H 199 H Random Glucose Calcium Phosphorus Magnesium Stool Occult Blood Crossmatch See Detail 06/13/21 06/13/21 06/13/21 00:25 05:17 05:20 WBC RBC Hgb Hct MCV MCH MCHC RDW Plt Count MPV Absolute Nucleated RBC Nucleated RBC % (auto) VBG pH VBG pCO2 VBG pO2 VBG HCO3 VBG O2 Saturation VBG Base Excess Sodium Potassium Chloride Carbon Dioxide Anion Gap BUN Creatinine Estim Creat Clear Calc Estimated GFR POC Glucose 113 89 Random Glucose Calcium Phosphorus Magnesium Stool Occult Blood NEGATIVE Crossmatch 06/13/21 06/13/21 06/13/21 05:30 05:30 05:30 WBC 10.5 RBC 2.63 L Hgb 7.8 L Hct 25.9 L MCV 98.5 H MCH 29.7 MCHC 30.1 L RDW 18.0 H Plt Count 124 L MPV 12.4 Absolute Nucleated RBC 0.000 Nucleated RBC % (auto) 0.0 VBG pH 7.46 H VBG pCO2 41 VBG pO2 42 VBG HCO3 30 H VBG O2 Saturation 71.0 VBG Base Excess 5.9 Sodium 148 H Potassium 3.6 Chloride 111 H Carbon Dioxide 31 H Anion Gap 10 L BUN 51 H Creatinine 0.75 Estim Creat Clear Calc 117.9 Estimated GFR > 60 POC Glucose Random Glucose 84 Calcium 8.9 Phosphorus 2.6 L Magnesium 2.2 Stool Occult Blood Crossmatch Microbiology Microbiology Results: Microbiology 05/30/21 16:15 Blood - Venous Blood Culture - Final No growth after 5 days. 05/30/21 16:15 Blood - Venous Blood Culture - Final No growth after 5 days. 05/31/21 00:50 Urine Catheterized - Camacho Catheter Urine Culture - Final No growth. 05/26/21 06:44 Blood - Venous Blood Culture - Final No growth after 5 days. 05/26/21 06:44 Blood - Venous Blood Culture - Final No growth after 5 days. 05/28/21 11:25 Sputum - Suctioned Gram Stain - Final 05/28/21 11:25 Sputum - Suctioned Sputum Culture - Final 05/22/21 11:32 Urine Catheterized - [place] Catheter Urine Culture - Final Serratia marcescens 05/19/21 16:47 Blood - Venous Blood Culture - Final No growth after 5 days. 05/19/21 16:49 Blood - Venous Blood Culture - Final No growth after 5 days. 05/22/21 15:44 Sputum - Suctioned Gram Stain - Final 05/22/21 15:44 Sputum - Suctioned Sputum Culture - Final 05/15/21 08:25 Blood - Venous Blood Culture - Final No growth after 5 days. 05/15/21 08:25 Blood - Venous Blood Culture - Final No growth after 5 days. 05/17/21 15:20 Sputum - Suctioned Gram Stain - Final 05/17/21 15:20 Sputum - Suctioned Sputum Culture - Final 05/13/21 Unknown Urine Catheterized - Camacho Catheter Urine Culture - Final Serratia marcescens 04/28/21 22:17 Blood - Venous Blood Culture - Final No growth after 5 days. 04/28/21 22:17 Blood - Venous Blood Culture - Final No growth after 5 days. Quality Stroke Does the patient have a stroke diagnosis?: No VTE Prior VTE?: No VTE Risk Level:: Medical - moderate - high VTE Device Contraindication: Treatment Not Indicated VTE Drug Contraindication: N/A - Med Ordered
[2021-06-13 12:08] LABS: Glucose, Whole Blood 139 mg/dL (60-115)
--- NOTE | 2021-06-13 13:05 | MHC.CM.PN ---
Clinical updates remitted to [facility] - they will be able to accept pt on 06/14 provided his blood counts remain stable and he has no further complications. Call placed to spouse, Nakia to update.
[2021-06-13] MEDS: Enoxaparin Sodium 100 MG/ML SYRINGE 90 MG SUBCUT (14:02)
--- NOTE | 2021-06-13 14:57 | MHC.CLN ---
RE: CONSULT PATIENT WITH TRACH AND PEG TUBE. MD REQUESTING DECREASE IN TF RATE RECOMMEND DECREASING TUBE FEEDING OF GLUCERNA 1.0 AT MAX GOAL RATE OF 40 ML PER HOUR WITH FREE WATER FLUSH 300 ML EVERY 4 HOUR TO PROVIDE 960 KCALS, 40 G PROTEIN, FREE WATER FROM FORMULA 819 ML PLUS FLUSH= 2619ML (32ML/KG BASED ON IBW). CONTINUE TO MONITOR TOLERANCE, RESIDUALS, AND LYTES.
[2021-06-13 17:55] LABS: Glucose, Whole Blood 208 mg/dL (60-115)
[2021-06-13] MEDS: traZODone HCL 100 MG TABLET PO (20:27)
[2021-06-13] MEDS: Atorvastatin Calcium 80 MG TABLET PO (20:27)
[2021-06-14] VITALS (17 sets, daily range): BP systolic 108–142; BP diastolic 51–84; PULSE 43–99; RESP 13–30; TEMP 33.8–38; O2SAT 87–99
[2021-06-14 00:11] LABS: Glucose, Whole Blood 142 mg/dL (60-115)
[2021-06-14] MEDS: Insulin Glargine,Hum.rec.anlog 100 UNIT/ML 10 ML VIAL 22 UNIT SUBCUT (01:04)
[2021-06-14] MEDS: Enoxaparin Sodium 100 MG/ML SYRINGE 90 MG SUBCUT (01:04)
[2021-06-14] MEDS: Insulin Lispro 100 UNIT/ML 3 ML VIAL SUBCUT (01:04)
[2021-06-14] MEDS: 0.9 % Sodium Chloride Flush 3 ML SYRINGE IVFLUSH ×2 (01:07→09:02)
--- NOTE | 2021-06-14 05:17 | PC.NURSE ---
Pt alert to person/place, nods appropriately, attempts to mouth words/gesture. Pt re-oriented to situation and plan of care. Report given to Angela by this RN, all questions answered- per facility member, requests to leave TLC and curry catheter in place for transport. Afebrile. NSR/SB with 1AVB, HR 40-70s. +2 generalized edema. SBP WNL. #8 portex trach, site C/D/I. Small amount of thick cream inline secretions. Vent settings: AC 14/500/5/30%. Glucerna tf at 40 ml/hr via PEG, tolerating well, minimal GRV. Incontinent of multiple BMs. UOP approx 100 ml/hr. Multiple skin integrity concerns- DTI to R buttock, stage 2 to B/L buttocks, and stage 2 to coccyx, barrier cream applied, repositioned q2hr, on air loss/prevalon mattress, heel boots on.
[2021-06-14 06:04] LABS: Glucose, Whole Blood 91 mg/dL (60-115)
[2021-06-14] MEDS: predniSONE 20 MG TABLET 40 MG PO (09:02)
[2021-06-14] MEDS: Chlorhexidine Gluc Oral Rinse 15 ML MOUTHWASH BUCCAL (09:02)
[2021-06-14] MEDS: Aspirin 81 MG TAB.CHEW 324 MG NG-TUBE (09:02)
[2021-06-14 09:10] LABS: MANUAL DIFF FLAG NO
[2021-06-14 09:13] LABS: Eosinophils Absolute Auto 0.1 X10*3/uL (0.0-0.4); Eosinophils Percent Auto 0.9 % (0-4); Hematocrit 25.1 % (42.0-52.0); Hemoglobin 7.6 g/dl (14.0-18.0); Imm Gran Abs Auto 0.05 X10*3/uL (0.00-0.03); Imm Gran Pct Auto 0.6 % (0.0-0.4); Lymphocytes Absolute Auto 1.3 X10*3/uL (1.2-4.9); Lymphocytes Percent Auto 15.1 % (20-40); Mean Corpuscular HGB Conc 30.3 g/dl (31.0-36.0); Mean Corpuscular Hemoglobin 29.3 pg (27.0-33.0); Mean Corpuscular Volume 96.9 fL (80.0-98.0); Mean Platelet Volume 12.2 fL (9.4-12.4); Monocytes Absolute Auto 0.6 X10*3/uL (0.1-1.2); Monocytes Percent Auto 6.5 % (2-11); Neutrophils Absolute Auto 6.5 x10*3/uL (2.0-8.3); Neutrophils Percent Auto 76.9 % (45-73); Platelet Count 135 X10*3/uL (160-400); Red Blood Count 2.59 X10*6/uL (4.60-5.80); Red Cell Distribution Width 17.9 % (11.0-16.0); White Blood Count 8.5 X10*3/uL (4.8-10.8)
--- NOTE | 2021-06-14 09:32 | MHC.CLN ---
F/U PT RECEIVING TUBE FEEDING OF GLUCERNA 1.0 AT MAX GOAL RATE OF 40 ML PER HOUR WITH FREE WATER FLUSH 300 ML EVERY 4 HOUR PROVIDES 960 KCALS, 40 G PROTEIN, FREE WATER FROM FORMULA 819 ML PLUS FLUSH= 2619ML (32ML/KG BASED ON IBW). AWAITING LABS FOR TODAY CONTINUE TO MONITOR TOLERANCE, RESIDUALS, AND LYTES.
--- NOTE | 2021-06-14 09:45 | MHC.CM.PN ---
Addendum entered by Karla Champion 06/14/21 11:32: Recieved callback from Nakia who is in agreement with d/c plan. Pt gave RN jose benitez in affirmation of transferring to [facility]. Gave Nakia the contact number for [facility] to discuss plans of care and visitor policy. [facility] to transport. Addendum entered by Karla Champion 06/14/21 10:50: Two additional messages left for Nakia to call [facility] for d/c information. Will await callback Original Note: Pt's H&H remains stable post transfusion on 06/12. Uploaded clincial information to [facility] who can likely offer a bed today. Call placed to pt's spouse, Nakia: messages left on both numbers for call back to review d/c plan. ALS to be tentatively booked for 12:30 today via [facility]. CM to follow
[2021-06-14 09:58] LABS: Glucose, Whole Blood 72 mg/dL (60-115)
--- NOTE | 2021-06-14 11:44 | P.PNCC_ITS ---
Subjective Subjective Date of Service: 06/14/21 Interval History: ? ICU PROGRESS NOTE / TRANSFER NOTE Date of admission:? 04/29/2021 Date of discharge:? 06/14/2021 Disposition:? Transfer to [facility] DISCHARGE DIAGNOSES: 1. Bilateral COVID pneumonia.? Symptom onset date Apr 17 or earlier. 2. Bilat pulmonary infiltrates with ARDS. 3. Hypoxemic respiratory failure. 4. ICU/steroid myopathy. 5. S/P tracheostomy and PEG. 6. Baseline CKD. 7. JÚNIOR.? Resolving. 8. Baseline DM. 9. Baseline CHF. 10. Aortic stenosis. 11. GI bleed on May 15.? Undetermined source. 12. Hyperkalemia.? Resolved. 13. Hyperntremia. 14. Mild agitation/anxiety. 15. Swollen left upper extremity.? DVT not found on US. Mr. Roberson is a 66-year-old male with past medical history of HTN, diabetes, CKD (baseline creatinine about 2.1), and CHF.? He was on furosemide and Kayexalate and insulin at home. The patient was diagnosed with COVID on April 19 after a few days of flu like symptoms (estimated symptom onset date April 17, or earlier).? Presented to the ED on April 28 w SOB and Sat 60s.? Admitted to Medicine with COVID pneumonia and treated with Decadron.? Subsequently transferred to ICU on May 09 and intubated on May 13 He had problems with slow heart rate and 2? heart block Mobitz type 1, and had a temporary PM put in for a few days.? On May 15, he had an episode of maroon stools with a 2G drop in his Hb.? Eliquis and steroids were stopped.? It resolved on its own; he was not scoped, did not need a tx. Over time, his oxygen requirement came down nicely but he developed an ICU/steroid myopathy, was unable to be weaned.? He underwent tracheostomy and PEG on Jun 07.? Notably, his COVID swabs had been repeatedly positive until yesterday he had the first negative test.? Last night, his visited for a few hours for the first time.? There was definitely some connection. On Jun 12, he was switched from a fentanyl drip at 100ug/hr to a fentanyl 100ug patch, and he was started on Clonidine TTS 0.2, in addition to prn Ativan and Di laudid.? He?s no longer on any intravenous drips or medications, other than the prn Ativan and prn Dilaudid. He?s easily arousable this morning, and readily and appropriately interactive.? Probably at least a bit disoriented.? Trying to mouth words, can?t understand what he is trying to say, but he does nod appropriately.? Heart rate 54, sinus rhythm with 1? AV block and PACs.? Blood pressure 114/54.? Afebrile.? On AC 14/500/35%/+5, RR is 16, Ve 7.4L, PIP 35cm, ETCO2 23, Sat 94%.? No JVD at 30?.? Normal exp phase.? Left UE is definitely swollen compared to the right side.? He has a left IJV CVC in place. LABORATORY DATA: ?Below.? Notably, Hb stable at 7.6 after transfusion of 1 unit RBCs on Jun 12.? Stool was brown with negative occult blood.? Plat count up slightly. IMPRESSION: 1.? Bilateral COVID pneumonia.? Symptom onset date Apr 17 or earlier.? Yesterday switched from Solumedrol 40 mg daily to Predinison? 40 mg daily, which can be tapered as his oxygenation improves.? Continue ASA 325 mg daily and Atorvastatin 80 mg daily. ?F/U CXR done yesterday showed no barotrauma.? Bilat infiltrates look about the same compared to the prev film of May 31. 2. Bilat pulmonary infiltrates with ARDS. 3. Hypoxemic respiratory failure. 4. ICU/steroid myopathy. 5. S/P tracheostomy and PEG.? Doing well now.? Will required extended weaning and Rehab.? Plan transfer to [facility] today. 6. Baseline CKD. 7. JÚNIOR.? Resolving.? Creat is now below baseline, and potassium is down while on full tube feeds, without needing a resin binder. 8. Baseline DM.? On Lantus and sliding scale.? The Lantus dose that he is on now, 22 units bid, looks just about perfect for him. 9. Baseline CHF.? BNP was 1098 on admission.? He was diuresed on and off during this hospitalization.? Last Lasix dose was 06/04. 10. Aortic stenosis.? Need to redo his echo to get a better look at the valve.? That can be done as an outpatient. 11. GI bleed on May 15.? No source identified.? Treated with bid PPI.? Resolved by itself.? Was never scoped, did not require transfusion.? No further evidence of GI bleeding.? At some point, after he?s off steroids, would suggest change his PPI to once daily. 12. Hyperkalemia.? Resolved with improvement in his creatinine 13. Hypernatremia.? Improving on water flushes 300 cc q4hr. 14. Mild agitation/anxiety.? Started on clonidine TTS 0.2 weekly and fentanyl patch.? Plan is to taper the fentanyl patch every three days, going from 100ug - > 75ug -> 50ug -> 25ug -> off.? He can also get prn oral or IV Ativan and/or Dilaudid. 15. Swollen Rt upper extremity.? No DVT on ultrasound study yesterday.? If extremity is still swollen in 5-7 days, the ultrasound should be repeated.? Given that there is high risk for DVT, and a strong clinical suspicion, in the meantime, the patient should be anticoagulated.? Discussed with Dr. Henson from radiology and he agrees.? So we?ve put the patient on Lovenox 90 mg bid. ?If the US in 5-7 days is negative again, then DVT-dose anticoagulation can be discontinued and he should be left on prophylactic anticoagulation. 16. Nutrition:? On goal rate Glucerna. 17. Left internal jugular central venous line in place:? Insertion date was May 26. Time: 96508. Critical Care Time (minutes): 0 Physical Exam Vital Signs: Vital Signs: Last Vital Signs Temp 100.2 F 06/14/21 11:00 Pulse 59 06/14/21 11:00 Resp 18 06/14/21 11:00 BP 114/54 L 06/14/21 11:00 Pulse Ox 94 06/14/21 11:00 Oxygen Flow Rate 15 06/08/21 14:55 BMI result Body Mass Index 29.5 Objective Data Labs CBC & Chem 7: 06/14/21 08:51 06/13/21 05:30 Labs: Laboratory Results - last 24 hr 06/13/21 06/13/21 06/14/21 12:05 17:50 00:00 WBC RBC Hgb Hct MCV MCH MCHC RDW Plt Count MPV Immature Gran % (Auto) Neut % (Auto) Lymph % (Auto) Arroyo % (Auto) Eos % (Auto) Baso % (Auto) Lymph # (Auto) Arroyo # (Auto) Eos # (Auto) Baso # (Auto) Abs Immat Gran (auto) Absolute Neuts (auto) Absolute Nucleated RBC Nucleated RBC % (auto) POC Glucose 139 H 208 H 142 H 06/14/21 06/14/21 06/14/21 06:00 08:51 09:56 WBC 8.5 RBC 2.59 L Hgb 7.6 L Hct 25.1 L MCV 96.9 MCH 29.3 MCHC 30.3 L RDW 17.9 H Plt Count 135 L MPV 12.2 Immature Gran % (Auto) 0.6 H Neut % (Auto) 76.9 H Lymph % (Auto) 15.1 L Arroyo % (Auto) 6.5 Eos % (Auto) 0.9 Baso % (Auto) 0.0 Lymph # (Auto) 1.3 Arroyo # (Auto) 0.6 Eos # (Auto) 0.1 Baso # (Auto) 0.0 Abs Immat Gran (auto) 0.05 H Absolute Neuts (auto) 6.5 Absolute Nucleated RBC 0.000 Nucleated RBC % (auto) 0.0 POC Glucose 91 72 Microbiology Microbiology Results: Microbiology 05/30/21 16:15 Blood - Venous Blood Culture - Final No growth after 5 days. 05/30/21 16:15 Blood - Venous Blood Culture - Final No growth after 5 days. 05/31/21 00:50 Urine Catheterized - Camacho Catheter Urine Culture - Final No growth. 05/26/21 06:44 Blood - Venous Blood Culture - Final No growth after 5 days. 05/26/21 06:44 Blood - Venous Blood Culture - Final No growth after 5 days. 05/28/21 11:25 Sputum - Suctioned Gram Stain - Final 05/28/21 11:25 Sputum - Suctioned Sputum Culture - Final 05/22/21 11:32 Urine Catheterized - Camacho Catheter Urine Culture - Final Serratia marcescens 05/19/21 16:47 Blood - Venous Blood Culture - Final No growth after 5 days. 05/19/21 16:49 Blood - Venous Blood Culture - Final No growth after 5 days. 05/22/21 15:44 Sputum - Suctioned Gram Stain - Final 05/22/21 15:44 Sputum - Suctioned Sputum Culture - Final 05/15/21 08:25 Blood - Venous Blood Culture - Final No growth after 5 days. 05/15/21 08:25 Blood - Venous Blood Culture - Final No growth after 5 days. 05/17/21 15:20 Sputum - Suctioned Gram Stain - Final 05/17/21 15:20 Sputum - Suctioned Sputum Culture - Final 05/13/21 Unknown Urine Catheterized - Camacho Catheter Urine Culture - Final Serratia marcescens 04/28/21 22:17 Blood - Venous Blood Culture - Final No growth after 5 days. 04/28/21 22:17 Blood - Venous Blood Culture - Final No growth after 5 days. Quality Stroke Does the patient have a stroke diagnosis?: No VTE Prior VTE?: No VTE Risk Level:: Medical - moderate - high VTE Device Contraindication: Treatment Not Indicated VTE Drug Contraindication: N/A - Med Ordered
--- NOTE | 2021-06-14 11:47 | PM.DS ---
DS: Providers Provider Date of Service: 06/14/21 Date of admission: 04/29/21 05:57 Primary care physician: Unknown Physician Consults: 04/29/21 08:08 Consult to Nephrology Routine Consulting Provider: Jordon Ramirez Reason for consultation: JÚNIOR on CKD 04/29/21 10:20 Consult to Cardiology Routine Consulting Provider: Yobani Romero Reason for consultation: CHF; Bradycardia Has provider been notified: No 04/30/21 08:03 Consult to Infectious Diseases Routine Consulting Provider: Nelly Fernandes Reason for consultation: covid, hypoxia, admitted 9d p symptom onset 05/09/21 06:06 Consult to Cardiology Routine Consulting Provider: Prince Haile Reason for consultation: 6s pause, bradycardia Has provider been notified: No 05/22/21 09:46 Consult to Infectious Diseases Stat Consulting Provider: Nelly Fernandes Reason for consultation: RESTRICTED ABX 06/02/21 13:59 Consult to Thoracic Surgery Routine Consulting Provider: Maria E Patel Reason for consultation: Covid patient, needs tracheostomy and PEG Has provider been notified: Yes DS: Diagnosis Discharge Diagnosis (1) JÚNIOR (acute kidney injury): Status: Inactive DS: Summary Hospital Course Hospital Course: ? DISCHARGE SUMMARY / TRANSFER NOTE Date of admission:? 04/29/2021 Date of discharge:? 06/14/2021 Disposition:? Transfer to [facility] DISCHARGE DIAGNOSES: 1. Bilateral COVID pneumonia.? Symptom onset date Apr 17 or earlier. 2. Bilat pulmonary infiltrates with ARDS. 3. Hypoxemic respiratory failure. 4. ICU/steroid myopathy. 5. S/P tracheostomy and PEG. 6. Baseline CKD. 7. JÚNIOR.? Resolving. 8. Baseline DM. 9. Baseline CHF. 10. Aortic stenosis. 11. GI bleed on May 15.? Undetermined source. 12. Hyperkalemia.? Resolved. 13. Hyperntremia. 14. Mild agitation/anxiety. 15. Swollen left upper extremity.? DVT not found on US. Mr. Roberson is a 66-year-old male with past medical history of HTN, diabetes, CKD (baseline creatinine about 2.1), and CHF.? He was on furosemide and Kayexalate and insulin at home. The patient was diagnosed with COVID on April 19 after a few days of flu like symptoms (estimated symptom onset date April 17, or earlier).? Presented to the ED on April 28 w SOB and Sat 60s.? Admitted to Medicine with COVID pneumonia and treated with Decadron.? Subsequently transferred to ICU on May 09 and intubated on May 13 He had problems with slow heart rate and 2? heart block Mobitz type 1, and had a temporary PM put in for a few days.? On May 15, he had an episode of maroon stools with a 2G drop in his Hb.? Eliquis and steroids were stopped.? It resolved on its own; he was not scoped, did not need a tx. Over time, his oxygen requirement came down nicely but he developed an ICU/steroid myopathy, was unable to be weaned.? He underwent tracheostomy and PEG on Jun 07.? Notably, his COVID swabs had been repeatedly positive until yesterday he had the first negative test.? Last night, his visited for a few hours for the first time.? There was definitely some connection. On Jun 12, he was switched from a fentanyl drip at 100ug/hr to a fentanyl 100ug patch, and he was started on Clonidine TTS 0.2, in addition to prn Ativan and Dilaudid.? He?s no longer on any intravenous drips or medications, other than the prn Ativan and prn Dilaudid. He?s easily arousable this morning, and readily and appropriately interactive.? Probably at least a bit disoriented.? Trying to mouth words, can?t understand what he is trying to say, but he does nod appropriately.? Heart rate 54, sinus rhythm with 1? AV block and PACs.? Blood pressure 114/54.? Afebrile.? On AC 14/500/35%/+5, RR is 16, Ve 7.4L, PIP 35cm, ETCO2 23, Sat 94%.? No JVD at 30?.? Normal exp phase.? Left UE is definitely swollen compared to the right side.? He has a left IJV CVC in place. LABORATORY DATA: ?Below.? Notably, Hb stable at 7.6 after transfusion of 1 unit RBCs on Jun 12.? Stool was brown with negative occult blood.? Plat count up slightly. IMPRESSION: 1.? Bilateral COVID pneumonia.? Symptom onset date Apr 17 or earlier.? Yesterday switched from Solumedrol 40 mg daily to Predinison? 40 mg daily, which can be tapered as his oxygenation improves.? Continue ASA 325 mg daily and Atorvastatin 80 mg daily. ?F/U CXR done yesterday showed no barotrauma.? Bilat infiltrates look about the same compared to the prev film of May 31. 2. Bilat pulmonary infiltrates with ARDS. 3. Hypoxemic respiratory failure. 4. ICU/steroid myopathy. 5. S/P tracheostomy and PEG.? Doing well now.? Will required extended weaning and Rehab.? Plan transfer to [facility] today. 6. Baseline CKD. 7. JÚNIOR.? Resolving.? Creat is now below baseline, and potassium is down while on full tube feeds, without needing a resin binder. 8. Baseline DM.? On Lantus and sliding scale.? The Lantus dose that he is on now, 22 units bid, looks just about perfect for him. 9. Baseline CHF.? BNP was 1098 on admission.? He was diuresed on and off during this hospitalization.? Last Lasix dose was 06/04. 10. Aortic stenosis.? Need to redo his echo to get a better look at the valve.? That can be done as an outpatient. 11. GI bleed on May 15.? No source identified.? Treated with bid PPI.? Resolved by itself.? Was never scoped, did not require transfusion.? No further evidence of GI bleeding.? At some point, after he?s off steroids, would suggest change his PPI to once daily. 12. Hyperkalemia.? Resolved with improvement in his creatinine 13. Hypernatremia.? Improving on water flushes 300 cc q4hr. 14. Mild agitation/anxiety.? Started on clonidine TTS 0.2 weekly and fentanyl patch.? Plan is to taper the fentanyl patch every three days, going from 100ug -> 75ug -> 50ug -> 25ug -> off.? He can also get prn oral or IV Ativan and/or Dilaudid. 15. Swollen Rt upper extremity.? No DVT on ultrasound study yesterday.? If extremity is still swollen in 5-7 days, the ultrasound should be repeated.? Given that there is high risk for DVT, and a strong clinical suspicion, in the meantime, the patient should be anticoagulated.? Discussed with Dr. Henson from radiology and he agrees.? So we?ve put the patient on Lovenox 90 mg bid. ?If the US in 5-7 days is negative again, then DVT-dose anticoagulation can be discontinued and he should be left on prophylactic anticoagulation. 16. Nutrition:? On goal rate Glucerna. 17. Left internal jugular central venous line in place:? Insertion date was May 26. Time Spent with Patient Time attestation: Total time spent providing and/or coordinating discharge services: Discharge coordination time: Less than 30 minutes Quality: Stroke Does the patient have a stroke diagnosis?: No Physical Exam Vital Signs: Vital Signs: Last Vital Signs Temp 100.2 F 06/14/21 11:00 Pulse 59 06/14/21 11:00 Resp 18 06/14/21 11:00 BP 114/54 L 06/14/21 11:00 Pulse Ox 94 06/14/21 11:00 Oxygen Flow Rate 15 06/08/21 14:55 BMI result Body Mass Index 29.5 DS: Data Data Completed and Pending Labs on day of discharge: Laboratory Results - last 24 hr 06/13/21 06/13/21 06/14/21 12:05 17:50 00:00 WBC RBC Hgb Hct MCV MCH MCHC RDW Plt Count MPV Immature Gran % (Auto) Neut % (Auto) Lymph % (Auto) Dickinson % (Auto) Eos % (Auto) Baso % (Auto) Lymph # (Auto) Dickinson # (Auto) Eos # (Auto) Baso # (Auto) Abs Immat Gran (auto) Absolute Neuts (auto) Absolute Nucleated RBC Nucleated RBC % (auto) POC Glucose 139 H 208 H 142 H 06/14/21 06/14/21 06/14/21 06:00 08:51 09:56 WBC 8.5 RBC 2.59 L Hgb 7.6 L Hct 25.1 L MCV 96.9 MCH 29.3 MCHC 30.3 L RDW 17.9 H Plt Count 135 L MPV 12.2 Immature Gran % (Auto) 0.6 H Neut % (Auto) 76.9 H Lymph % (Auto) 15.1 L Dickinson % (Auto) 6.5 Eos % (Auto) 0.9 Baso % (Auto) 0.0 Lymph # (Auto) 1.3 Dickinson # (Auto) 0.6 Eos # (Auto) 0.1 Baso # (Auto) 0.0 Abs Immat Gran (auto) 0.05 H Absolute Neuts (auto) 6.5 Absolute Nucleated RBC 0.000 Nucleated RBC % (auto) 0.0 POC Glucose 91 72 Discharge Plan Discharge Patient Disposition: [facility] Discharge Diagnosis: acute respiratory failure due to COVID pneumonia Referrals: Physician,Unknown J [Primary Care Provider] - 1 Week Discharge Medications: New enoxaparin 100 mg/mL Syringe 90 mg subcut Q12H Qty: 0 RF: 0 atorvastatin 80 mg Tablet 80 mg PO BEDTIME Qty: 0 RF: 0 clonidine 0.2 mg/24 hr Patch Weekly 0.2 mg transdermal Mo@0900 Qty: 0 RF: 0 aspirin 81 mg Tablet,Chewable 324 mg NG-TUBE DAILY Qty: 0 RF: 0 hydromorphone 1 mg/mL Syringe 1 mg IVPUSH Q2H PRN (Reason: WOB) Qty: 0 RF: 0 lorazepam 2 mg/mL Solution 1 mg IVPUSH Q6H PRN (Reason: Agitation/anxiety) Qty: 0 RF: 0 trazodone 100 mg Tablet 100 mg PO BEDTIME Qty: 0 RF: 0 sodium chloride 0.9 % (flush) [BD PosiFlush Normal Saline 0.9] Syringe 3 ml IVFLUSH QSHIFT Qty: 0 RF: 0 prednisone 20 mg Tablet 40 mg PO DAILY Qty: 0 RF: 0 Omeprazole Oral Susp [Prilosec Oral Susp] 40 mg OG-TUBE BID@0630,1630 Qty: 0 RF: 0 Discontinued aspirin 81 mg tablet,chewable 1 tab PO DAILY Qty: 30 RF: 11 (DME) OneTouch Ultra Blue Test Strip Strip See Rx Instructions .ROUTE .MEDSUPPLY Qty: 100 RF: 3 atorvastatin 20 mg tablet 20 mg PO DAILY Qty: 30 RF: 11 metformin 500 mg tablet 250 mg PO DAILY 90 Days Qty: 45 RF: 3 atenolol 25 mg tablet 25 mg PO DAILY 90 Days Qty: 90 RF: 3 glipizide 5 mg tablet 2.5 mg PO DAILY Qty: 45 RF: 0 hydralazine 10 mg tablet 40 mg PO TID Qty: 360 RF: 3 furosemide 40 mg tablet 80 mg PO Q2D RF: 0 furosemide 40 mg tablet 40 mg PO Q2D RF: 0 Basaglar KwikPen U-100 Insulin 100 unit/mL (3 mL) insulin pen 18 unit subcut QPM RF: 0 isosorbide mononitrate 60 mg tablet extended release 24 hr 60 mg PO DAILY RF: 0 sodium polystyrene sulfonate Powder 30 g PO 2XW RF: 0 Discharge Orders: Discharge Order (Routine); Ordered 06/14/21 Ordered By: Nithin Reyes Diet: other Activity on Discharge: As tolerated Stand Alone Forms: Patient Portal Discharge page Activity Restrictions/Additional Instructions: Wound care instructions: Cleanse buttocks/coccyx with wound cleanser then apply Triad to stage 2 pressure sores cover with ABD pad and tape. Care Plan Goals: rehab Health Concerns: prolonged hospital stay, covid Plan of Treatment: rehab Assessment: transfer for rehab
[2021-06-14 12:04] LABS: Glucose, Whole Blood 78 mg/dL (60-115)
== END 2021-06-14 13:00 | DRG 4 ==
LOC: HO.ED 04-29 01:09 → HO.EDOVER 04-29 06:01 → HO.IMC 04-29 16:49 → HO.ICU 05-09 17:56
PROVIDERS: Family Medicine; Internal Medicine; Internal Medicine Cardiovascular Disease; Internal Medicine Nephrology; Internal Medicine Pulmonary Disease; Physician Assistant; Physician Assistant Medical; Registered Nurse Community Health; Surgery; Admitting Provider Internal Medicine; Emergency Provider Emergency Medicine; Visit Provider Anesthesiology
PROC: 0B113F4 Bypass Trachea to Cutaneous with Tracheostomy Device, Percutaneous Approach (ICD-10-PCS; principal; 2021-06-07 14:30)
DX: U07.1 COVID-19 (principal); J12.82 Pneumonia due to coronavirus disease 2019; I21.A1 Myocardial infarction type 2; J80 Acute respiratory distress syndrome; I50.31 Acute diastolic (congestive) heart failure; N17.9 Acute kidney failure, unspecified; I13.0 Hypertensive heart and chronic kidney disease with heart failure and stage 1 through stage 4 chronic kidney disease, or unspecified chronic kidney disease; D62 Acute posthemorrhagic anemia; E87.1 Hypo-osmolality and hyponatremia; T85.698A Other mechanical complication of other specified internal prosthetic devices, implants and grafts, initial encounter; K92.2 Gastrointestinal hemorrhage, unspecified; E87.3 Alkalosis; E11.65 Type 2 diabetes mellitus with hyperglycemia; I25.10 Atherosclerotic heart disease of native coronary artery without angina pectoris; E78.5 Hyperlipidemia, unspecified; I35.0 Nonrheumatic aortic (valve) stenosis; I49.5 Sick sinus syndrome; G72.9 Myopathy, unspecified; E87.5 Hyperkalemia; I44.1 Atrioventricular block, second degree; E11.22 Type 2 diabetes mellitus with diabetic chronic kidney disease; N18.30 Chronic kidney disease, stage 3 unspecified; Z79.4 Long term (current) use of insulin; Z79.82 Long term (current) use of aspirin; Z79.899 Other long term (current) drug therapy
CPT/HCPCS: 0241U; 36415; 71045; 71250; 74018; 76000; 80048; 80053; 80076; 80202; 81001; 82040; 82043; 82271; 82272; 82550; 82728; 82803; 82947; 83036; 83605; 83615; 83735; 83880; 83935; 84100; 84132; 84133; 84145; 84300; 84484; 85007; 85025; 85027; 85379; 85610; 86022; 86140; 86713; 86850; 86900; 86901; 86923; 87040; 87070; 87071; 87073; 87086; 87088; 87186; 87205; 87449; 87635; 87640; 87641; 87798; 93005; 93306; 93971; 94002; 94003; 94640; 94660; 96361; 96365; 96367; 96375; 97110; 97163; 99285; 99291; C1758; J0456; J0610; J0690; J0692; J0696; J1100; J1170; J1265; J1650; J1940; J1956; J2060; J2250; J2270; J2370; J2543; J2765; J2920; J3010; J3370; J3411; J3475; P9016; P9047